=== PATIENT | female | born 1960 | race Caucasian/White ===

== ENCOUNTER → 2019-02-20 13:42 | Outpatient (CLI) | payer MEDICARE, SELFPAY ==
--- NOTE | 2019-02-20 13:50 | AVDS_ITS ---
Reason For Study: Complication due to renal dialysis device RIGHT Inflow, brachial artery, 296.3/139.5 cm/sec. Inflow, brachial artery, 568.2 cc/sec. Anastomosis, 581.7/253.7 cm/sec. Anastomosis, 717.8 cc/sec. Prox graft, 272/118.8 cm/sec. Prox graft, 2727 cc/sec. Mid graft, 151.8/53.4 cm/sec. Mid graft, 945.1 cc/sec. Distal graft, 272/118.8 cm/sec. Distal graft, 222.1 cc/sec. Outflow, 151.8/68.9 cm/sec. Outflow, 633.9 cc/sec. Interpretation Summary 1. Mild stenosis at anastamosis to 3.1 mm and sever outflow at 2.5mm with flow 568. Ordering Physician: Judd Malcolm Referring Physician: Odin Castle M.D. Performed By: Cindy Bravo RVT
== END ==
PROVIDERS: Family Provider Family Medicine; PCP Family Medicine; Referring Provider Surgery Vascular Surgery; Visit Provider Surgery Vascular Surgery
DX: T82.858A Stenosis of other vascular prosthetic devices, implants and grafts, initial encounter (principal); N18.6 End stage renal disease
CPT/HCPCS: 93990

== ENCOUNTER → 2019-04-29 12:51 | Outpatient (CLI) | payer MEDICARE, SELFPAY ==
--- NOTE | 2019-04-29 12:55 | AVDS_ITS ---
Reason For Study: Complications due to renal dialysis device RIGHT Inflow, brachial artery, 257.1/104.2 cm/sec. Inflow, brachial artery, 554.7 ml/min. Anastomosis, 349.6/125.5 cm/sec. Anastomosis, 532.9 ml/min. Prox graft, 201.3/36.5 cm/sec. Prox graft, 1502 ml/min. Mid graft, 112.6/46.7 cm/sec. Mid graft, 889.7 ml/min. Distal graft, 558.8/257.4 cm/sec. Distal graft, 921.5 ml/min. Outflow, 88.2/40.7 cm/sec. Outflow, 650.5 ml/min. Interpretation Summary 1. Patent fistula with outflow stenosis at 2.5mm. Brachail artery flow 554. Ordering Physician: Judd Malcolm Referring Physician: Latrice Pandey Performed By: Cindy Bravo RVT
== END ==
LOC: CVS 12:52
PROVIDERS: Referring Provider Surgery Vascular Surgery; Visit Provider Surgery Vascular Surgery
DX: T82.858A Stenosis of other vascular prosthetic devices, implants and grafts, initial encounter (principal); N18.6 End stage renal disease
CPT/HCPCS: 93990

== ENCOUNTER → 2019-06-16 09:48 | Outpatient (CLI) | payer MEDICARE, SELFPAY ==
--- NOTE | 2019-06-16 09:51 | AVDS_ITS ---
Reason For Study: Complications due to renal dialysis device RIGHT Inflow, brachial artery, 284.5/100.3 cm/sec. Inflow, brachial artery, 500.4 ml/min. Anastomosis, 318.9/174.9 cm/sec. Anastomosis, 214.6 ml/min. Prox graft, 404.8/150 cm/sec. Prox graft, 2374 ml/min. Mid graft, 189.5/53.7 cm/sec. Mid graft, 1866 ml/min. Distal graft, 97.9/40.8 cm/sec. Distal graft, 862.9 ml/min. Outflow, 177.9/79.3 cm/sec. Outflow, 585.5 ml/min. Interpretation Summary 1. Patent AVG with some proximal stenosis. Ordering Physician: Judd Malcolm Referring Physician: Alphonse Marr Performed By: Cindy Bravo RVT
== END ==
LOC: CVS 09:49
PROVIDERS: PCP Student in an Organized Health Care Education/Training Program; Referring Provider Surgery Vascular Surgery; Visit Provider Surgery Vascular Surgery
DX: T82.858A Stenosis of other vascular prosthetic devices, implants and grafts, initial encounter (principal); N18.6 End stage renal disease
CPT/HCPCS: 93990

== ENCOUNTER → 2019-08-06 09:45 | Outpatient (CLI) | payer MEDICARE, MEDICAID, SELFPAY ==
--- NOTE | 2019-08-06 09:50 | AVDS_ITS ---
Reason For Study: Complications due to renal dialysis device RIGHT Inflow, brachial artery, 346.3/146.7 cm/sec. Inflow, brachial artery, 1030 ml/min. Anastomosis, 515.4/247.3 cm/sec. Anastomosis, 560.1 ml/min. Prox graft, 505.7/228.4 cm/sec. Prox graft, 5372 ml/min. Mid graft, 274.1/119.4 cm/sec. Mid graft, 2724 ml/min. Distal graft, 149.3/71.5 cm/sec. Distal graft, 1793 ml/min. Outflow, 173.3/73.1 cm/sec. Outflow, 1451 ml/min. Interpretation Summary Proximal mild stenosis with good flow at 3.3mm. The rest of fistula 8.1 to 9.4mm. Flow 1030 ml/min. Ordering Physician: Judd Malcolm Referring Physician: Alphonse Marr Performed By: Cindy Bravo RVT
== END ==
PROVIDERS: PCP Student in an Organized Health Care Education/Training Program; Referring Provider Surgery Vascular Surgery; Visit Provider Surgery Vascular Surgery
DX: T82.858A Stenosis of other vascular prosthetic devices, implants and grafts, initial encounter (principal); N18.6 End stage renal disease
CPT/HCPCS: 93990

== ENCOUNTER 2020-11-25 11:17 | Inpatient (IN) | payer MEDICARE, MEDICAID, SELFPAY ==
[2020-11-25] VITALS (14 sets, daily range): BP systolic 112–182; BP diastolic 54–70; PULSE 68–72; RESP 16–24; TEMP 36.4–36.9; O2SAT 91–98; BMI 30.7; BMI 29.5
--- NOTE | 2020-11-25 11:29 | EDS_ITS ---
HPI History of Present Illness Chief Complaint: Chest Pain Informant: patient Narrative Narrative: Patient is a 60-year-old female with a past medical history of end- stage renal disease on dialysis, mitral valve replacement who presents to the emergency department for substernal chest pain. This started just prior to arrival while she was at dialysis. She denies ever having this pain before. She states that it was very severe. It is down to a 6 out of 10 currently. No radiation of the pain. No shortness of breath past her baseline. She is on oxygen chronically. She typically wears 2 L of nasal cannula. Patient was previously on Eliquis but taken off of this 3 weeks ago she had a severe nosebleed. She denies any leg swelling past baseline or calf pain. No history of DVT/PE or heart attack. No known aggravating or relieving factors. She did receive nitro and aspirin by EMS prior to arrival. [facility] Medical History CAD (coronary artery disease) CHF (congestive heart failure) CKD (chronic kidney disease) CKD (chronic kidney disease) stage V requiring chronic dialysis Former tobacco use HTN (hypertension) Hyperlipidemia PAF (paroxysmal atrial fibrillation) Home Medications ascorbic acid (vitamin C) 500 mg PO DAILY 11/25/20 [History Last Taken 11/24/20] atorvastatin 40 mg PO DAILY 11/25/20 [History Last Taken 11/24/20] cholecalciferol (vitamin D3) 125 mcg PO DAILY 11/25/20 [History Last Taken 11/24/20] furosemide 20 mg PO DAILY 11/25/20 [History Last Taken 11/24/20] furosemide 40 mg PO BID 11/25/20 [History Last Taken 11/24/20] hydralazine 50 mg PO TID 11/25/20 [History Last Taken 11/25/20] hydroxyzine HCl 25 mg PO TID 11/25/20 [History Last Taken 11/25/20] insulin lispro [Humalog U-100 Insulin] 11/25/20 [History Last Taken Unknown] metoprolol succinate 50 mg PO BID 11/25/20 [History Last Taken 11/25/20] omeprazole 40 mg PO DAILY 11/25/20 [History Last Taken 11/24/20] ondansetron HCl 4 mg PO PRN PRN 11/25/20 [History Last Taken 11/25/20] Allergy/AdvReac Type Severity Reaction Status Date / Time amoxicillin Allergy Hives Verified 11/25/20 11:39 benzonatate Allergy Hives Verified 11/25/20 11:39 [From Tessalon Perles] lansoprazole [From Prevacid] Allergy Other Verified 11/25/20 11:39 latex Allergy Hives Verified 11/25/20 11:39 Penicillins Allergy Hives Verified 11/25/20 11:39 Family History (Updated 11/25/20 @ 15:[address] Daiana Guajardo MD) Mother Hypertension Diabetes Heart disease Father Heart disease Hypertension Diabetes Kidney disease Surgical History History of appendectomy History of arteriovenous graft History of heart artery stent History of mitral valve replacement Hx of CABG Social History (Updated 11/25/20 @ 15:[address] Daiana Guajardo MD) household members: spouse Smoking Status: Former smoker how long ago did patient quit smoking: Quit 4 years prior, smoked 1 ppd cig tob since teenager. alcohol intake: never substance use type: does not use ROS ROS ED Constitutional Constitutional ED: Denies chills or fever(s) Eyes Eyes: Denies change in vision ENT ENT ED: Denies epistaxis or rhinorrhea Cardiovascular Cardiovascular: Reports chest pain; Denies palpitations Respiratory/Chest Respiratory/Chest: Denies cough, dyspnea or dyspnea on exertion Gastrointestinal Gastrointestinal: Reports nausea and vomiting; Denies abdominal pain or diarrhea Musculoskeletal Musculoskeletal: Denies back pain or neck pain Integumentary Denies rash Neurologic Neurologic: Denies dizziness, headache(s) or weakness EXAM Physical Exam Narrative Exam Narrative: Patient dry heaving throughout exam. Const Vital Signs: 11/25/20 11:18 11/25/20 11:30 11/25/20 13:14 Temperature 98 F 97.6 F L Temperature Source Oral Oral Pulse Rate 70 72 Respiratory Rate 20 H 20 H Respiratory Effort Normal Non-Labored Respiratory Pattern Normal Blood Pressure 138/65 H 182/64 H Blood Pressure Mean 89 103 Pulse Ox 91 94 98 Oxygen Delivery Method Room Air Room Air Nasal Cannula Oxygen Flow Rate (L/min) 4 11/25/20 14:03 11/25/20 14:17 11/25/20 14:49 Temperature Temperature Source Pulse Rate 72 71 68 Respiratory Rate 24 H 19 H Respiratory Effort Respiratory Pattern Blood Pressure 176/70 H 159/59 H 159/59 H Blood Pressure Mean 105 92 Pulse Ox 95 93 Oxygen Delivery Method Nasal Cannula Nasal Cannula Oxygen Flow Rate (L/min) 2 2 11/25/20 15:09 11/25/20 15:18 Temperature 98 F Temperature Source Temporal Pulse Rate 70 69 Respiratory Rate 19 H Respiratory Effort Respiratory Pattern Blood Pressure 149/57 H 149/57 H Blood Pressure Mean 87 Pulse Ox 96 Oxygen Delivery Method Nasal Cannula Oxygen Flow Rate (L/min) 2 Positive well nourished and well developed General Appearance ED: well developed HEENT Reports normocephalic and head/scalp atraumatic Eyes PERRL and EOMs intact bilaterally Neck supple Chest Wall inspection of chest normal Resp normal respiratory effort and clear to auscultation bilaterally Auscultation: Negative for rales, rhonchi or wheezes Cardio regular rate, regular rhythm and no murmurs GI normal to inspection, nondistended, normoactive bowel sounds and non-tender Palpation: soft; Negative for guarding or rebound tenderness present Extremity normal to inspection Extremity Narrative: 1+ pitting edema of bilateral lower extremities. No calf tenderness. General Extremety ED: Negative for tenderness Neuro oriented x3 and no sensory deficits noted Sensorium / Orientation: alert Motor Exam: strength 5/5 throughout Psych mental status grossly normal Skin no rashes or lesions noted MDM MDM MDM Narrative Medical decision making narrative: Patient presents to the emergency department for chest pain and nausea/vomiting. On arrival to the ED she is satting 91% on her baseline oxygen. She is not tachycardic. The rest of her vital signs within normal limits. EKG, chest x-ray and basic lab work being obtained. She already received aspirin prior to arrival. Will give a dose of morphine. On the initial EMS EKG she did have a prolonged QTC so we will avoid Zofran. We will give a dose of Phenergan. Repeat EKG was obtained and her QTC was 450. Despite getting the Phenergan she still having nausea so this time Zofran was given. She was found to have a low potassium so this is being replaced. Her BMP came back severely elevated. X- ray showed a right pleural effusion. Patient's oxygen saturations dropped to the high 70s at one point and her supplemental oxygen has been increased. Concern for CHF exacerbation although she is having significant pain so CT angio is being performed. Her troponin is within normal limits. Patient CT scan of her chest did not reveal any evidence of pulmonary embolism. She is still having active chest pain. We will give a dose of nitro to help with the chest pain and CHF exacerbation. I did discuss with the hospitalist and they requested Nitropaste to go on to the floor. She otherwise has remained stable. She is agreeable with this plan. Lab Data Labs: Laboratory Results - last 24 hr 11/25/20 11/25/20 11/25/20 11:22 11:22 11:50 WBC 13.3 H RBC 3.84 L Hgb 10.9 L Hct 35.3 L MCV 91.9 MCH 28.4 MCHC 30.9 L RDW Std Deviation 63.8 H RDW Coeff of Grazyna 19.7 H Plt Count 359 MPV 10.4 Immature Gran % (Auto) 0.500 Neut % (Auto) 79.7 H Lymph % (Auto) 7.8 L Kidder % (Auto) 9.5 Eos % (Auto) 1.8 Baso % (Auto) 0.7 Absolute Neuts (auto) 10.6 H Absolute Lymphs (auto) 1.04 Nucleated RBC % 0 Sodium 134 L Potassium 2.7 L* Chloride 93 L Carbon Dioxide 37.0 H Anion Gap 4 L BUN 12 Creatinine 2.33 H Estim Creat Clear Calc 26.16 Est GFR (MDRD) Af Amer 27 L Est GFR (MDRD) Non-Af 22 L BUN/Creatinine Ratio 5.2 L Glucose 118 H Calcium 8.8 Magnesium 2.2 Troponin I High Sens 18.8 B-Natriuretic Peptide 2154.0 H 11/25/20 15:11 WBC RBC Hgb Hct MCV MCH MCHC RDW Std Deviation RDW Coeff of Grazyna Plt Count MPV Immature Gran % (Auto) Neut % (Auto) Lymph % (Auto) Kidder % (Auto) Eos % (Auto) Baso % (Auto) Absolute Neuts (auto) Absolute Lymphs (auto) Nucleated RBC % Sodium Potassium Chloride Carbon Dioxide Anion Gap BUN Creatinine Estim Creat Clear Calc Est GFR (MDRD) Af Amer Est GFR (MDRD) Non-Af BUN/Creatinine Ratio Glucose Calcium Magnesium Troponin I High Sens Cancelled B-Natriuretic Peptide Radiography Diagnostic Testing: Radiology Impression Chest X-Ray 11/25/20 11:51 IMPRESSION: CHF. Cardiomegaly. Small right pleural effusion with right basilar atelectasis. Electronically Signed: Miach Zelaya MD at 12:03 EDT , Service support , Chest CTA 11/25/20 11:58 IMPRESSION: 1. No central or segmental pulmonary embolism. 2. Cardiomegaly with peribronchial thickening and interstitial prominence suggesting fluid overload/CHF. 3. Right pleural effusion. Upper abdominal ascites. 4. Right lower lobe atelectasis. 5. Moderate mediastinal adenopathy without dominant serenity mass. Electronically Signed: Billy Jordan MD ([place]) at 13:09 EDT , Service support , EKG Initial EKG: Attestation: I personally reviewed and interpreted this EKG as follows: (Rate of 73 bpm in sinus rhythm. Prolonged IA interval of 246 with first-degree AV block. Otherwise normal intervals. Normal axis. No significant ST eleva tions or depressions. Some nonspecific ST changes.) Discharge Plan Dx/Rx/DC Orders Clinical Impression: CHF exacerbation, Hypoxia, Chest pain Disposition Disposition: Acute Care Hospital [facility] Discharge Date/Time: 11/25/20 15:36
--- NOTE | 2020-11-25 11:30 | EKG12_ITS ---
Test Reason : CP Blood Pressure : / mmHG Vent. Rate : 074 BPM Atrial Rate : 074 BPM P-R Int : 262 ms QRS Dur : 106 ms QT Int : 464 ms P-R-T Axes : 057 -18 106 degrees QTc Int : 515 ms Sinus rhythm with 1st degree A-V block T wave abnormality, consider lateral ischemia Prolonged QT Poor R wave progression Abnormal ECG Confirmed by MARIA T RUSSO, DEVANTE ([id number]), assistant film editor SHELDON MERAZ ([id number]) on 11/30/2020 10:18:27 AM Referred By: NALINI Confirmed By:DEVANTE LIVE MD
[2020-11-25] MEDS: Morphine 4 MG/ML Syringe IV (11:39)
[2020-11-25] MEDS: proMETHazine 25 MG/ML Syringe 12.5 MG IM (11:39)
[2020-11-25 11:42] LABS: Absolute Lymphocyte Count 1.04 X10^3/uL (0.83-4.51); Absolute Neutrophil Count 10.6 X10^3/uL (2.0-7.7); Basophil# 0.09 X10^3/uL; Basophil% 0.7 % (0-1); Eosinophil# 0.24 X10^3/uL; Eosinophils% 1.8 % (0-5); Hematocrit 35.3 % (37-47); Hemoglobin 10.9 g/dL (12.0-15.0); Lymphocyte # 1.04 X10^3/ul (0.83-4.51); Lymphocyte % 7.8 % (19-41); Mean Corp Hgb Conc 30.9 g/dL (32-36); Mean Corpuscular Hgb 28.4 pg (27.0-32.0); Mean Corpuscular Volume 91.9 fL (81-99); Mean Platelet Vol. 10.4 fl (6.2-12.0); Monocyte# 1.27 X10^3/uL; Monocyte% 9.5 % (0-10); NRBC Flagged by Analyzer 0 % (0-5); Neutrophil # 10.61 X10^3/uL (2.7-7.7); Neutrophil % 79.7 % (47-70); Platelet Count 359 K/mm3 (150-450); RBC Distribution Width CV 19.7 % (11.6-14.6); RBC Distribution Width SD 63.8 fl (35.1-43.9); Red Blood Count 3.84 M/mm3 (4.2-5.4); White Blood Count 13.3 K/mm3 (4.4-11.0)
--- NOTE | 2020-11-25 11:51 | RAD_ITS ---
STUDY: X-RAY CHEST REASON FOR EXAM: Female, 60 years old. Chest pain TECHNIQUE: Single AP portable view of the chest. COMPARISON: None. FINDINGS: EKG electrodes are seen. There is evidence of vascular congestion and mild degree of CHF with a right basilar atelectasis. Small right pleural effusion. Sternal cerclage wires and vascular clips are present from a prior sternotomy and coronary artery bypass graft procedure (CABG). A left-sided dual-chamber pacemaker is seen. A clip is seen along the left atrial appendage. Normal mediastinum and damaris. Normal visualized pulmonary arteries. There is atherosclerotic calcification of the aortic arch with tortuosity. Normal visualized thoracic spine. Normal visualized ribs, clavicles, and shoulders. There is no demonstrated abnormality of the visualized soft tissue structures of the upper abdomen. RAD/Chest 1 View (Portable) IMPRESSION: CHF. Cardiomegaly. Small right pleural effusion with right basilar atelectasis. Electronically Signed: Micah Zelaya MD at 12:03 EDT , Service support ,
--- NOTE | 2020-11-25 11:58 | CT_ITS ---
STUDY: CTA CHEST REASON FOR EXAM: Female, 60 years old. Substernal CP, hypoxia, eval for PE RADIATION DOSAGE (If Supplied By Facility): CTDIvol = ( 20.51 ) mGy, DLP = ( 426.06 ) mGycm TECHNIQUE: The examination was performed with the intravenous administration of IV 75mL Isovue-370. Post-processing of the angiographic images was performed, with multiplanar reformation and 3D reconstruction. Individualized dose optimization techniques were used for this CT. COMPARISON: None. FINDINGS: Normal enhancement of the main pulmonary artery and right and left pulmonary arteries. Normal enhancement of the bilateral peripheral pulmonary arteries. There is no demonstrated pulmonary embolism. Normal thoracic aorta and visualized great vessels. There is no demonstrated aortic dissection. There is cardiomegaly. Cardiac conduction device is noted. Mitral valve replacement. Reflux of contrast in the IVC. Moderate adenopathy of the middle mediastinum. For instance, Station 4 paratracheal lymph node measures 1.6 x 2.2 cm. Normal hilar regions. There is peribronchial thickening. Compressive atelectasis of the right lower lobe. No airspace consolidation or obvious nodule/mass. There is a moderate volume right sided pleural effusion. Normal chest wall structures. There are degenerative changes of thoracic spine. Ascites in the upper abdomen partially visualized. CT/CTA Chest W/WO Contrast IMPRESSION: 1. No central or segmental pulmonary embolism. 2. Cardiomegaly with peribronchial thickening and interstitial prominence suggesting fluid overload/CHF. 3. Right pleural effusion. Upper abdominal ascites. 4. Right lower lobe atelectasis. 5. Moderate mediastinal adenopathy without dominant serenity mass. Electronically Signed: Billy Jordan MD ([place]) at 13:09 EDT , Service support ,
[2020-11-25 11:59] LABS: Anion Gap 4 (5-15); BUN 12 mg/dL (7-18); BUN/Creat Ratio 5.2 RATIO (10-20); Calcium,Total 8.8 mg/dL (8.5-10.1); Chloride 93 mmol/L (98-107); Creatinine, Serum 2.33 mg/dL (0.55-1.02); EST Glomerular Filtration Rate 22 mL/min (>60); Est Glom Filt Rate - Afr Amer 27 mL/min (>60); Estimated Creatinine Clearance 26.16 ml/min; Glucose 118 mg/dL (74-106); Magnesium 2.2 mg/dL (1.6-2.6); Potassium 2.7 mmol/L (3.5-5.1); Sodium Level 134 mmol/L (136-145); Troponin-I HS 18.8 pg/mL (3.0-53.7)
[2020-11-25] MEDS: Potassium Chloride Oral Tablet 20 MEQ PO (12:04)
--- NOTE | 2020-11-25 12:05 | EKG12_ITS ---
Test Reason : Blood Pressure : / mmHG Vent. Rate : 066 BPM Atrial Rate : 066 BPM P-R Int : 250 ms QRS Dur : 098 ms QT Int : 494 ms P-R-T Axes : 041 -11 109 degrees QTc Int : 517 ms Sinus rhythm with 1st degree A-V block Nonspecific T wave abnormality Prolonged QT Abnormal ECG Confirmed by MARIA T RUSSO, DEVANTE ([id number]), editor news SHELDON MERAZ ([id number]) on 11/30/2020 10:56:12 AM Referred By: DORIS Confirmed By:DEVANTE LIVE MD
[2020-11-25] MEDS: Ondansetron 4 MG/2 ML Vial IV ×2 (12:29→20:00)
[2020-11-25] MEDS: Potassium Chloride 10mEq/100mL 10 MEQ/100 ML IV.SOLN. 100 MEQ IV BOLUS (13:23)
[2020-11-25] MEDS: Metoclopramide 10 MG/2 ML Vial 5 MG IV (14:10)
[2020-11-25] MEDS: Nitroglycerin (INPATIENT USE) 0.4 MG TAB.SUBL SL (14:17)
[2020-11-25] MEDS: Furosemide 40 MG/4 ML Vial IV ×2 (15:13→22:53)
[2020-11-25] MEDS: Nitroglycerin Oint 1 INCH PACKET TD (15:18)
--- NOTE | 2020-11-25 15:36 | PCM.HP.STD ---
HPI - General General Date of Admission: 11/25/20 Date of Service: 11/25/20 Chief Complaint: Dyspnea, worsening, chest pain HPI Narrative The patient is a 60 y/o F w/ PMHx: PAF, CAD s/p CABG and PCI, PAD, AOCD/Chronic anemia, ESRD on HD, Valvular Heart Disease s/p MVR, Chronic CHF Unclear Type, HTN, HLD, GERD who presents to the [facility] ED on 11/25/20 with history of ongoing substernal chest pain starting prior to arrival while at dialysis noted to be severe in nature, rated 6-10 out of 10 in severity with no radiation with unchanged chronic dyspnea on oxygen 2 L nasal cannula baseline with recent discontinuation of Eliquis 3 weeks prior secondary to severe nosebleeds. Patient does report that over the last month she has had worsening exertional dyspnea but no chest pain until current presentation. Patient does report that chest pain occurred when she was in the middle of dialysis and she did have some time that was remaining prior to transitioning for ED evaluation. Currently following sublingual nitroglycerin she rates pain 0 out of 10. She denies any recent specific worsening edema, weight gain or notable orthopnea. Work-up in the ED included T 97.6, heart rate 72, BP 138/65 initially with repeat 176/70, respiratory rate initially 20 noted to be 91% on room air with most recent respiratory rate 24, 95% on 2 L nasal cannula, CBC with WBC 13.3, hemoglobin 10.9, platelet 359 with left shift, BMP with sodium 134, potassium 2.7, chloride 93, BUN/creatinine 12/2.33, glucose 118, magnesium 2.2, troponin high-sensitivity 18.8, BNP 2154, chest x-ray with evidence of cardiomegaly, congestion consistent with CHF, small right pleural effusion with right basilar atelectasis, CTPA with no evidence of central or segmental pulmonary embolism, cardiomegaly with peribronchial thickening and interstitial prominence suggestive of fluid overload/CHF, right pleural effusion with evidence of upper abdominal ascites, right lower lobe atelectasis, moderate mediastinal adenopathy with no dominant serenity mass, EKG per EMS with prolonged QTC with sinus rhythm, repeat EKG QTC 450 with sinus rhythm with first-degree AV blocks with no acute evidence of ischemia, rapid Covid antigen negative. In the ED patient ministered Phenergan, potassium 20 mill equivalent p.o. x1, Zofran, nitroglycerin, morphine, Reglan, Dilaudid. [facility] Medical History (Updated 11/25/20 @ 15:[address] Daiana Guajardo MD) CAD (coronary artery disease) CHF (congestive heart failure) CKD (chronic kidney disease) CKD (chronic kidney disease) stage V requiring chronic dialysis Former tobacco use HTN (hypertension) Hyperlipidemia PAF (paroxysmal atrial fibrillation) Home Medications ascorbic acid (vitamin C) 500 mg PO DAILY 11/25/20 [History Last Taken 11/24/20] atorvastatin 40 mg PO DAILY 11/25/20 [History Last Taken 11/24/20] cholecalciferol (vitamin D3) 125 mcg PO DAILY 11/25/20 [History Last Taken 11/24/20] furosemide 20 mg PO DAILY 11/25/20 [History Last Taken 11/24/20] furosemide 40 mg PO BID 11/25/20 [History Last Taken 11/24/20] hydralazine 50 mg PO TID 11/25/20 [History Last Taken 11/25/20] hydroxyzine HCl 25 mg PO TID 11/25/20 [History Last Taken 11/25/20] metoprolol succinate 50 mg PO BID 11/25/20 [History Last Taken 11/25/20] omeprazole 40 mg PO DAILY 11/25/20 [History Last Taken 11/24/20] ondansetron HCl 4 mg PO PRN PRN 11/25/20 [History Last Taken 11/25/20] Allergy/AdvReac Type Severity Reaction Status Date / Time amoxicillin Allergy Hives Verified 11/25/20 11:39 benzonatate Allergy Hives Verified 11/25/20 11:39 [From Tessalon Perles] lansoprazole [From Prevacid] Allergy Other Verified 11/25/20 11:39 latex Allergy Hives Verified 11/25/20 11:39 Penicillins Allergy Hives Verified 11/25/20 11:39 Family History (Updated 11/25/20 @ 15:[address] Daiana Guajardo MD) Mother Hypertension Diabetes Heart disease Father Heart disease Hypertension Diabetes Kidney disease Surgical History (Updated 11/25/20 @ 15:[address] Daiana Guajardo MD) History of appendectomy History of arteriovenous graft History of heart artery stent History of mitral valve replacement Hx of CABG Social History (Updated 11/25/20 @ 15:[address] Daiana Guajardo MD) household members: spouse Smoking Status: Former smoker how long ago did patient quit smoking: Quit 4 years prior, smoked 1 ppd cig tob since teenager. alcohol intake: never substance use type: does not use ROS ROS Narrative Admission Review of Systems: CONSTITUTIONAL: No weight loss, fever, chills, + weakness or fatigue. HEENT: Eyes: No visual loss, blurred vision, double vision or yellow sclerae. Ears, Nose, Throat: No hearing loss, sneezing, congestion, runny nose or sore throat. SKIN: No rash or itching, lesions, wounds. CARDIOVASCULAR: + chest pain, chest pressure or chest discomfort, No palpitations, edema, orthopnea, syncopal events. RESPIRATORY: + shortness of breath, No cough or sputum, wheezing, hemoptysis. GASTROINTESTINAL: + anorexia, nausea, vomiting, No diarrhea, abdominal pain, melena, BRBPR. GENITOURINARY: No dysuria, frequency, urgency or retention. NEUROLOGICAL: No headache, dizziness, syncope, paralysis, ataxia, numbness or tingling in the extremities, focal weakness, change in bowel or bladder control, seizure. MUSCULOSKELETAL: + muscle, back pain, joint pain or stiffness. HEMATOLOGIC: + anemia, bleeding or bruising. LYMPHATICS: No enlarged nodes. No history of splenectomy. PSYCHIATRIC: No history of depression or anxiety. ENDOCRINOLOGIC: No reports of sweating, cold or heat intolerance. No polyuria or polydipsia. ALLERGIES: No history of asthma, hives, eczema or rhinitis. Vital Signs Vital Signs Vital Signs: 11/25/20 11:18 11/25/20 11:30 11/25/20 13:14 Temperature 98 F 97.6 F L Temperature Source Oral Oral Pulse Rate 70 72 Respiratory Rate 20 H 20 H Respiratory Effort Normal Non-Labored Respiratory Pattern Normal Blood Pressure 138/65 H 182/64 H Blood Pressure Mean 89 103 Pulse Ox 91 94 98 Oxygen Delivery Method Room Air Room Air Nasal Cannula Oxygen Flow Rate (L/min) 4 11/25/20 14:03 11/25/20 14:17 11/25/20 14:49 Temperature Temperature Source Pulse Rate 72 71 68 Respiratory Rate 24 H 19 H Respiratory Effort Respiratory Pattern Blood Pressure 176/70 H 159/59 H 159/59 H Blood Pressure Mean 105 92 Pulse Ox 95 93 Oxygen Delivery Method Nasal Cannula Nasal Cannula Oxygen Flow Rate (L/min) 2 2 11/25/20 15:09 11/25/20 15:18 Temperature 98 F Temperature Source Temporal Pulse Rate 70 69 Respiratory Rate 19 H Respiratory Effort Respiratory Pattern Blood Pressure 149/57 H 149/57 H Blood Pressure Mean 87 Pulse Ox 96 Oxygen Delivery Method Nasal Cannula Oxygen Flow Rate (L/min) 2 Weight Weight: 208 lb 1.862 oz Body Mass Index (BMI) 30.7 Physical Exam Narrative Physical Examination: General: Awake, alert, oriented x 3 and cooperative, seated upright in the ED bed, notes feeling markedly improved, respiratory status normalized as had been short of breath initially upon presentation with chest pain, currently 0 out of 10 chest pain rated. Skin: Normal color, normal turgor, no icterus, no cyanosis. HEENT: AT/NC, EOMI, PERRLA, MMM, no carotid bruits, + JVD noted. Lungs: Diminished, greater bases, mild rales bilaterally, right greater than left, effort improved, normalized, no ronchi or wheezing. Heart: Regular rate and rhythm; no gallop, rub audible. Abdomen: Soft, overweight, NTTP, ND, normal BS, no HSM. Extremities: No cyanosis, no clubbing, mild bilateral ankle edema, not markedly pitting. Neurological: Patient awake, alert, oriented as noted, cognitive function intact; pupils equally reactive to light and accommodation, cranial nerves II-XII grossly normal, moving all 4 extremities, no focal deficits, strength moderately to severely global decrease secondary to acute presentation, improving. Psychiatric: Affect appears currently improved, fatigued otherwise normal, no acute evidence of depressive or anxiety feelings. Results Lab / Micro Data Result Diagrams: 11/25/20 11:22 11/25/20 11:22 Labs: Laboratory Results - last 24 hr 11/25/20 11:22: WBC 13.3 H, RBC 3.84 L, Hgb 10.9 L, Hct 35.3 L, MCV 91.9, MCH 28.4, MCHC 30.9 L, RDW Std Deviation 63.8 H, RDW Coeff of Grazyna 19.7 H, Plt Count 359, MPV 10.4, Immature Gran % (Auto) 0.500, Neut % (Auto) 79.7 H, Lymph % (Auto) 7.8 L, Gregg % (Auto) 9.5, Eos % (Auto) 1.8, Baso % (Auto) 0.7, Absolute Neuts (auto) 10.6 H, Absolute Lymphs (auto) 1.04, Nucleated RBC % 0 11/25/20 11:22: Sodium 134 L, Potassium 2.7 L*, Chloride 93 L, Carbon Dioxide 37.0 H, Anion Gap 4 L, BUN 12, Creatinine 2.33 H, Estim Creat Clear Calc 26.16, Est GFR (MDRD) Af Amer 27 L, Est GFR (MDRD) Non-Af 22 L, BUN/Creatinine Ratio 5.2 L, Glucose 118 H, Calcium 8.8, Magnesium 2.2, Troponin I High Sens 18.8 11/25/20 11:50: B-Natriuretic Peptide 2154.0 H Micro: Microbiology 11/25/20 12:02 Mucosa - Nose SARS-CoV-2 Antigen (Rapid) - Final Radiology Impression Chest X-Ray 11/25/20 11:51 IMPRESSION: CHF. Cardiomegaly. Small right pleural effusion with right basilar atelectasis. Electronically Signed: Micah Zelaya MD at 12:03 EDT , Service support , Chest CTA 11/25/20 11:58 IMPRESSION: 1. No central or segmental pulmonary embolism. 2. Cardiomegaly with peribronchial thickening and interstitial prominence suggesting fluid overload/CHF. 3. Right pleural effusion. Upper abdominal ascites. 4. Right lower lobe atelectasis. 5. Moderate mediastinal adenopathy without dominant serenity mass. Electronically Signed: Billy Jordan MD (Brooks) at 13:09 EDT , Service support , Assessment & Plan Assessment/Plan (1) CHF exacerbation: QUALIFIERS: Heart failure type: unspecified Qualified Code(s): I50.9 - Heart failure, unspecified (2) Hypoxia: (3) Chest pain: QUALIFIERS: Chest pain type: unspecified Qualified Code(s): R07.9 - Chest pain, unspecified PLAN: The patient is a 60 y/o F w/ PMHx: PAF, CAD s/p CABG and PCI, PAD, AOCD/Chronic anemia, ESRD on HD, Valvular Heart Disease s/p MVR, Chronic CHF Unclear Type, HTN, HLD, GERD who presents to the [facility] ED on 11/25/20 with history of ongoing substernal chest pain starting prior to arrival while at dialysis noted to be severe in nature, rated 6-10 out of 10 in severity with no radiation with unchanged chronic dyspnea on oxygen 2 L nasal cannula baseline with recent discontinuation of Eliquis 3 weeks prior secondary to severe nosebleeds. 1. Acute Decompensated CHF, Presumed Diastolic with associated Chest pain, Hypoxia w/ respiratory insufficiency: Patient administered IV lasix in the ED pending Nephrology evaluation of HD. Will admit to PCU, maintain on cardiac telemetry, obtain cardiac enzyme series, obtain serial EKGs, continue IV lasix diuresis pending HD, monitor I/Os, maintain on intake restriction, continue medical therapy, obtain TSH and magnesium level. Obtain ECHO. PRN morphine to decrease afterload, continue oxygen supplementation, if necessary will position w/ upright position with legs off bed to decrease preload. 2. Hypokalemia: Admission K+ 2.7, magnesium 2.2, supplementation orally administered in the ED, will administer additional dose and repeat level this evening as well as repeat level in AM. 3. ESRD on HD: Admission BUN/Cr 12/2.33, unclear baseline, HD from discussion Saturday, onset of chest discomfort during evaluation today, will consult nephrology and given presentation request HD. Will consult Dr. 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 4. CAD, PAD: Patient per her report status post bypass surgery unclear specific vessels or number as well as PCI x1 and also reports stenting to something in her abdomen but unclear vessel, will maintain on aspirin, statin, metoprolol, not on JUSTIN inhibitor or ARB with underlying renal disease as noted. 5. Valvular heart disease: Patient status post MVR, echo ordered as noted above. 6. Hypertension: Continue home regimen including metoprolol, hydralazine, IV Lasix as noted, not on JUSTIN inhibitor/ARB, PRN hydralazine. 7. Hyperlipidemia: Continue home statin regimen. AM FLP. 8. Chronic anemia/AOCD: Admission hemoglobin 10.9, do suspect likely baseline given underlying renal disease, no comparison, trend. 9. 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 Will cautiously placed on aspirin with chemoprophylaxis as noted. 10. GERD: We will continue patient home PPI. 11. DVT prophylaxis: SCDs, heparin. 12. CODE status: Patient does not have healthcare peritoneal living will in place. Discussed CODE status at length including difference between FULL code, DNR-CCA and DNR-CC status. Following discussions about the differences in these status, requested Full Code status. Advanced Care Planning Face to Face Time: 16 minutes. Charges/Coding Visit Charges Inpatient E&M: 97441 Init Hosp L3 Procedures Hospitalists Procedures: 51872 Advncd Care Plan 30 Min
--- NOTE | 2020-11-25 15:50 | ECHOD_ITS ---
Reason For Study: CHF Procedure This was a 2D Doppler, Color Flow transthoracic echocardiogram. The exam was of adequate technical quality. Exam performed portable in patient room. Left Ventricle Normal LV size. Left ventricular systolic function is normal. The estimated ejection fraction is 55 %. Unable to assess diastolic dysfunction. No regional wall motion abnormalities noted. Right Ventricle Mildly dilated right ventricle. Mild global right ventricular systolic dysfunction. Atria The left atrium is mildly enlarged. The right atrium is moderately enlarged. No doppler evidence for ASD. Mitral Valve Stable appearing bioprosthetic mitral valve apparatus. Trivial transvalvular insufficiency of the mitral valve. Tricuspid Valve Normal tricuspid valve. Moderate (2+) tricuspid valve insufficiency. Right ventricular systolic pressure estimated to be 45 mmHg. Aortic Valve Trisinus/trileaflet aortic valve. Mild focal aortic valve calcification. Pulmonic Valve The pulmonic valve is not well visualized. Mild (1+) pulmonic valve insufficiency. Great Vessels Normal sized aortic root. Pericardium/Pleural No pericardial effusion. MMode/2D Measurements & Calculations LVIDd: 4.6 cm IVSd: 0.99 cm Ao root diam: 3.3 cm LVIDs: 3.0 cm LVPWd: 1.0 cm RVDd: 4.0 cm FS: 35.6 % LAV(MOD-bp): 55.6 ml LA A4 area: 17.0 cm2 LA dimension(2D): 4.5 cm LAV(MOD-bp) Indexed: 26.5 ml/m2 LAV(MOD-sp2): 67.1 ml LAV(MOD-sp4): 43.2 ml Doppler Measurements & Calculations MV E max ruben: 182.7 cm/sec MV V2 max: 201.1 cm/sec Ao V2 max: 124.2 cm/sec MV max P.2 mmHg Ao max P.2 mmHg MV V2 mean: 99.9 cm/sec MV mean P.0 mmHg MV V2 VTI: 49.1 cm LV V1 max: 94.3 cm/sec PA V2 max: 61.2 cm/sec TR max ruben: 304.1 cm/sec LV V1 max P.6 mmHg TR max P.2 mmHg ECHO/Echo Complete Interpretation Summary Left ventricular systolic function is normal. The estimated ejection fraction is 55 %. Mildly dilated right ventricle. Mild global right ventricular systolic dysfunction. The right atrium is moderately enlarged. Stable appearing bioprosthetic mitral valve apparatus. Trivial transvalvular insufficiency of the mitral valve. Moderate (2+) tricuspid valve insufficiency. Mild focal aortic valve calcification. Mild (1+) pulmonic valve insufficiency. Right ventricular systolic pressure estimated to be 45 mmHg. Unable to assess diastolic dysfunction. Ordering Physician: Daiana Guajardo Referring Physician: Alphonse Marr Performed By: Oksana Ríos, KRAIG, RVT
[2020-11-25 17:06] LABS: Troponin-I HS 20.6 pg/mL (3.0-53.7)
[2020-11-25] MEDS: Potassium Chloride Oral Tablet 20 MEQ 40 MEQ PO (18:04)
[2020-11-25 18:24] LABS: Anion Gap 3 (5-15); BUN 15 mg/dL (7-18); BUN/Creat Ratio 5.2 RATIO (10-20); Calcium,Total 8.7 mg/dL (8.5-10.1); Chloride 94 mmol/L (98-107); Creatinine, Serum 2.88 mg/dL (0.55-1.02); EST Glomerular Filtration Rate 18 mL/min (>60); Est Glom Filt Rate - Afr Amer 21 mL/min (>60); Estimated Creatinine Clearance 21.17 ml/min; Glucose 107 mg/dL (74-106); Potassium 3.4 mmol/L (3.5-5.1); Sodium Level 132 mmol/L (136-145); Troponin-I HS 19.8 pg/mL (3.0-53.7)
[2020-11-25 18:49] LABS: Hemoglobin A1c 6.4 % (3.8-5.6)
[2020-11-25] MEDS: 0.9% Saline Lock 10 ML Syringe IV ×2 (20:00→22:53)
[2020-11-25] MEDS: Metoprolol(XL)Succ 50 MG Tablet PO (22:54)
[2020-11-25] MEDS: hydrOXYzine PAM 25 MG Capsule PO (22:54)
[2020-11-25] MEDS: hydrALAZINE 50 MG Tablet PO (22:54)
[2020-11-25] MEDS: Heparin Injection (Vial) 5,000 UNIT/ML VIAL 5000 UNIT SC (22:54)
[2020-11-25 23:35] LABS: Bedside Glucose 80 mg/dL (70-110)
[2020-11-26] VITALS (17 sets, daily range): BP systolic 110–142; BP diastolic 45–67; PULSE 55–69; RESP 16–20; TEMP 36–36.8; O2SAT 92–97
--- NOTE | 2020-11-26 05:55 | EKG12_ITS ---
Test Reason : AM EKG Blood Pressure : / mmHG Vent. Rate : 067 BPM Atrial Rate : 067 BPM P-R Int : 252 ms QRS Dur : 094 ms QT Int : 480 ms P-R-T Axes : 038 -10 104 degrees QTc Int : 507 ms Sinus rhythm with 1st degree A-V block Nonspecific T wave abnormality Prolonged QT Abnormal ECG Confirmed by MARIA T RUSSO, DEVANTE ([id number]), business editor SHELDON MERAZ ([id number]) on 11/30/2020 10:17:30 AM Referred By: DR GARCIA Confirmed By:DEVANTE LIVE MD
[2020-11-26] MEDS: hydrALAZINE 50 MG Tablet PO ×3 (06:06→20:46)
[2020-11-26] MEDS: Furosemide 40 MG/4 ML Vial IV ×3 (06:06→20:46)
[2020-11-26] MEDS: hydrOXYzine PAM 25 MG Capsule PO ×3 (06:06→20:48)
[2020-11-26] MEDS: 0.9% Saline Lock 10 ML Syringe IV ×5 (06:06→21:43)
[2020-11-26] MEDS: Morphine 2 MG/ML Syringe IV ×3 (06:46→21:43)
[2020-11-26 07:35] LABS: Bedside Glucose 116 mg/dL (70-110)
[2020-11-26 08:02] LABS: Absolute Lymphocyte Count 0.87 X10^3/uL (0.83-4.51); Absolute Neutrophil Count 11.1 X10^3/uL (2.0-7.7); Basophil# 0.05 X10^3/uL; Basophil% 0.4 % (0-1); Eosinophil# 0.25 X10^3/uL; Eosinophils% 1.8 % (0-5); Hematocrit 33.3 % (37-47); Hemoglobin 10.2 g/dL (12.0-15.0); Lymphocyte # 0.87 X10^3/ul (0.83-4.51); Lymphocyte % 6.2 % (19-41); Mean Corp Hgb Conc 30.6 g/dL (32-36); Mean Corpuscular Hgb 28.6 pg (27.0-32.0); Mean Corpuscular Volume 93.3 fL (81-99); Mean Platelet Vol. 10.5 fl (6.2-12.0); Monocyte# 1.67 X10^3/uL; Monocyte% 11.9 % (0-10); NRBC Flagged by Analyzer 0.2 % (0-5); Neutrophil # 11.13 X10^3/uL (2.7-7.7); Neutrophil % 79.1 % (47-70); POSITIVE DIFFERENTIAL YES; POSITIVE MORPHOLOGY YES; Platelet Count 306 K/mm3 (150-450); RBC Distribution Width CV 19.8 % (11.6-14.6); RBC Distribution Width SD 65.2 fl (35.1-43.9); Red Blood Count 3.57 M/mm3 (4.2-5.4); White Blood Count 14.1 K/mm3 (4.4-11.0)
[2020-11-26 08:06] LABS: Differential Indicated SCAN CRITERIA MET
[2020-11-26 08:34] LABS: ALB/GLOB Ratio 0.5 RATIO (0.9-2.4); AST(SGOT) 69 U/L (15-37); Alanine Aminotransfer ALT/SGPT 31 U/L (13-56); Albumin, Serum 2.4 g/dL (3.2-5.0); Alkaline Phosphatase 601 U/L (45-117); Anion Gap 5 (5-15); BUN 20 mg/dL (7-18); BUN/Creat Ratio 5.6 RATIO (10-20); Calcium,Total 8.7 mg/dL (8.5-10.1); Chloride 95 mmol/L (98-107); Cholesterol < 50 mg/dL (200); EST Glomerular Filtration Rate 14 mL/min (>60); Est Glom Filt Rate - Afr Amer 16 mL/min (>60); Estimated Creatinine Clearance 16.93 ml/min; Globulin 5.1 g/dL (2.2-4.2); Glucose 110 mg/dL (74-106); High Density Lipoprotein 26 mg/dL; Potassium 4.1 mmol/L (3.5-5.1); Protein, Total 7.5 g/dL (6.4-8.2); Sodium Level 131 mmol/L (136-145); Triglycerides 55 mg/dL; Very Low Density Lipoprotein 11 mg/dL (5-40)
[2020-11-26 08:43] LABS: Hypochromasia 1+
[2020-11-26] MEDS: Heparin Injection (Vial) 5,000 UNIT/ML VIAL 5000 UNIT SC ×2 (09:37→20:45)
[2020-11-26] MEDS: Aspirin E.C. 81 MG Tablet PO (09:38)
[2020-11-26] MEDS: Cholecalciferol (VIT D3) 25 MCG TABLET (1,000 UNITS) 125 MCG PO (09:38)
[2020-11-26] MEDS: Atorvastatin Calcium 40 MG Tablet PO (09:39)
[2020-11-26] MEDS: Metoprolol(XL)Succ 50 MG Tablet PO ×2 (09:39→20:47)
[2020-11-26] MEDS: Pantoprazole Sodium 40 MG Tablet PO (09:40)
[2020-11-26] MEDS: Ascorbic Acid 500 MG Tablet PO (09:41)
[2020-11-26] MEDS: Insulin Basal Pump 1 UNIT SC (09:41)
--- NOTE | 2020-11-26 11:01 | PCM.CONS.R ---
Assessment & Plan Assessment/Plan (1) ESRD (end stage renal disease) on dialysis: PLAN: The patient usually dialyzes on a Saturday, Saturday and Saturday schedule at [facility]. She is followed there by Dr. Glynn. Although the patient did not receive the full treatment of her usual dialysis yesterday, there is no need for diffusive clearance. However, she is still volume overloaded. Therefore, I will arrange for isolated ultrafiltration today. Recheck volume status and laboratory tests again tomorrow. (2) Anemia: PLAN: Hemoglobin is at goal for dialysis patient. We will find out what her usual BARBRA dose is with dialysis on 11/28/2020. (3) HTN (hypertension): PLAN: BP is controlled on metoprolol and hydralazine. Continue current medications. BP should also stabilize with ultrafiltration. (4) CHF exacerbation: QUALIFIERS: Heart failure type: unspecified Qualified Code(s): I50.9 - Heart failure, unspecified PLAN: Not sure what her systolic function is since there is no echocardiogram in our system. The patient has crackles on physical exam. She is still volume overloaded and would benefit from further volume removal. Therefore, I will ultrafilter the patient as mentioned above. BP and heart rate is controlled. HPI Consult Data Date of Consult: 11/26/20 HPI Narrative HPI Narrative: The patient is a 60-year-old woman who has ESRD due to diabetic kidney disease, hypertension, type 2 diabetes mellitus, CAD status post CABG and PCI, status post MVR and permanent pacemaker, and paroxysmal atrial fibrillation. The patient usually dialyzes on a MWF schedule at [facility]. The patient is followed there by Dr. Kali Glynn. The patient developed chest pressure and shortness of breath during dialysis yesterday. Chest pressure is better but still present. Troponin was normal. Her shortness of breath has also improved, but she is not yet back at baseline in terms of breathing. She has chronic lower extremity edema which has not increased in severity from usual baseline. FORMERLY [facility], [facility] Medical History (Updated 11/26/20 @ 11:[address] Liat Parker MD) CAD (coronary artery disease) CHF (congestive heart failure) CKD (chronic kidney disease) CKD (chronic kidney disease) stage V requiring chronic dialysis Former tobacco use HTN (hypertension) Hyperlipidemia PAF (paroxysmal atrial fibrillation) Home Medications ascorbic acid (vitamin C) 500 mg PO DAILY 11/25/20 [History Last Taken 11/24/20] atorvastatin 40 mg PO DAILY 11/25/20 [History Last Taken 11/24/20] cholecalciferol (vitamin D3) 125 mcg PO DAILY 11/25/20 [History Last Taken 11/24/20] furosemide 20 mg PO DAILY 11/25/20 [History Last Taken 11/24/20] furosemide 40 mg PO BID 11/25/20 [History Last Taken 11/24/20] hydralazine 50 mg PO TID 11/25/20 [History Last Taken 11/25/20] hydroxyzine HCl 25 mg PO TID 11/25/20 [History Last Taken 11/25/20] insulin lispro [Humalog U-100 Insulin] 11/25/20 [History Last Taken Unknown] metoprolol succinate 50 mg PO BID 11/25/20 [History Last Taken 11/25/20] omeprazole 40 mg PO DAILY 11/25/20 [History Last Taken 11/24/20] ondansetron HCl 4 mg PO PRN PRN 11/25/20 [History Last Taken 11/25/20] Allergy/AdvReac Type Severity Reaction Status Date / Time amoxicillin Allergy Hives Verified 11/25/20 11:39 benzonatate Allergy Hives Verified 11/25/20 11:39 [From Tessalon Perles] lansoprazole [From Prevacid] Allergy Other Verified 11/25/20 11:39 latex Allergy Hives Verified 11/25/20 11:39 Penicillins Allergy Hives Verified 11/25/20 11:39 Family History (Updated 11/25/20 @ 15:[address] Daiana Guajardo MD) Mother Hypertension Diabetes Heart disease Father Heart disease Hypertension Diabetes Kidney disease Surgical History History of appendectomy History of arteriovenous graft History of heart artery stent History of mitral valve replacement Hx of CABG Social History (Updated 11/25/20 @ 15:[address] Daiana Guajardo MD) household members: spouse Smoking Status: Former smoker how long ago did patient quit smoking: Quit 4 years prior, smoked 1 ppd cig tob since teenager. alcohol intake: never substance use type: does not use ROS ROS Narrative Review of systems as per HPI. 10 out of 10 review of systems was completed and otherwise are noncontributory. Physical Exam Narrative General: Alert and oriented x3 in no apparent distress. HEENT: Normocephalic, atraumatic. Mucous membrane moist without erythema. Neck: Supple. Positive JVD. Heart: Normal S1, S2. No rubs or murmurs. Lungs: Crackles at bases bilaterally. Abdomen: Normal bowel sounds, soft, nontender, no guarding or rebound. Extremity: 1+ edema in the lower extremities. No clubbing or cyanosis. Full passive range of motion. Skin: No rash. Skin is warm and dry. Psychiatric: Normal mood and affect. Medical Records Data Medical Nutrition Assessment Dietitian: Nutrition Therapy Diagnosis Start: 11/25/20 17:20 Freq: Status: Active Protocol: Document 11/25/20 17:32 SHARAD (Rec: 11/25/20 17:32 [facility] [id number]) Nutrition Malnutrition Evidence of Malnutrition Exists No Intake Problem Inadequate Oral Intake Etiology related to nausea Signs/Symptoms as evidenced by poor po intake x 2 wks prior to admission. Status Active Problem Clinical Problem Altered Nutrient-Related Laboratory Values Etiology related to renal/endocrine dysfunction Signs/Symptoms as evidenced by Na 134, K 2.7, Cr 2.33, gluc 118 Status Active Problem Recommendation Dietitian Recommendations/Changes Will change diet to Consistent CHO/ Sodium Restriction / 1500 ml fluid/day Will provide 120 ml Nepro CHO Steady w/ meals for increased nutrition if consumed Lab / Micro Data Result Diagrams: 11/26/20 07:37 11/26/20 07:37 Labs: Laboratory Results - last 24 hr 11/25/20 11:22: WBC 13.3 H, RBC 3.84 L, Hgb 10.9 L, Hct 35.3 L, MCV 91.9, MCH 28.4, MCHC 30.9 L, RDW Std Deviation 63.8 H, RDW Coeff of Grazyna 19.7 H, Plt Count 359, MPV 10.4, Immature Gran % (Auto) 0.500, Neut % (Auto) 79.7 H, Lymph % (Auto) 7.8 L, Aud[place] % (Auto) 9.5, Eos % (Auto) 1.8, Baso % (Auto) 0.7, Absolute Neuts (auto) 10.6 H, Absolute Lymphs (auto) 1.04, Nucleated RBC % 0 11/25/20 11:22: Sodium 134 L, Potassium 2.7 L*, Chloride 93 L, Carbon Dioxide 37.0 H, Anion Gap 4 L, BUN 12, Creatinine 2.33 H, Estim Creat Clear Calc 26.16, Est GFR (MDRD) Af Amer 27 L, Est GFR (MDRD) Non-Af 22 L, BUN/Creatinine Ratio 5.2 L, Glucose 118 H, Calcium 8.8, Magnesium 2.2, Troponin I High Sens 18.8 11/25/20 11:50: B-Natriuretic Peptide 2154.0 H 11/25/20 15:11: Troponin I High Sens Cancelled 11/25/20 16:25: Phosphorus 2.0 L, Troponin I High Sens 20.6 11/25/20 16:25: Troponin I High Sens Cancelled 11/25/20 16:25: Hemoglobin A1c 6.4 H 11/25/20 17:41: Sodium 132 L, Potassium 3.4 L, Chloride 94 L, Carbon Dioxide 35.0 H, Anion Gap 3 L, BUN 15, Creatinine 2.88 H, Estim Creat Clear Calc 21.17, Est GFR (MDRD) Af Amer 21 L, Est GFR (MDRD) Non-Af 18 L, BUN/Creatinine Ratio 5.2 L, Glucose 107 H, Calcium 8.7, Troponin I High Sens 19.8 11/25/20 22:52: POC Glucose 80 11/26/20 07:29: POC Glucose 116 H 11/26/20 07:37: WBC 14.1 H, RBC 3.57 L, Hgb 10.2 L, Hct 33.3 L, MCV 93.3, MCH 28.6, MCHC 30.6 L, RDW Std Deviation 65.2 H, RDW Coeff of Grazyna 19.8 H, Plt Count 306, MPV 10.5, Immature Gran % (Auto) 0.600, Neut % (Auto) 79.1 H, Lymph % (Auto) 6.2 L, [place] % (Auto) 11.9 H, Eos % (Auto) 1.8, Baso % (Auto) 0.4, Absolute Neuts (auto) 11.1 H, Absolute Lymphs (auto) 0.87, Nucleated RBC % 0.2, Diff Path Review May foll, Hypochromasia 1+ 11/26/20 07:37: Sodium 131 L, Potassium 4.1, Chloride 95 L, Carbon Dioxide 31.0, Anion Gap 5, BUN 20 H, Creatinine 3.60 H, Estim Creat Clear Calc 16.93, Est GFR (MDRD) Af Amer 16 L, Est GFR (MDRD) Non-Af 14 L, BUN/Creatinine Ratio 5.6 L, Glucose 110 H, Calcium 8.7, Total Bilirubin 2.80 H, AST 69 H, ALT 31, Alkaline Phosphatase 601 H, Total Protein 7.5, Albumin 2.4 L, Globulin 5.1 H, Albumin/Globulin Ratio 0.5 L, Triglycerides 55, Cholesterol < 50, LDL Cholesterol TNP, VLDL Cholesterol 11, HDL Cholesterol 26 L Micro: Microbiology 11/25/20 12:02 Mucosa - Nose SARS-CoV-2 Antigen (Rapid) - Final Radiology Impression Chest X-Ray 11/25/20 11:51 IMPRESSION: CHF. Cardiomegaly. Small right pleural effusion with right basilar atelectasis. Electronically Signed: Micah Zelaya MD at 12:03 EDT , Service support , Chest CTA 11/25/20 11:58 IMPRESSION: 1. No central or segmental pulmonary embolism. 2. Cardiomegaly with peribronchial thickening and interstitial prominence suggesting fluid overload/CHF. 3. Right pleural effusion. Upper abdominal ascites. 4. Right lower lobe atelectasis. 5. Moderate mediastinal adenopathy without dominant serenity mass. Electronically Signed: Billy Jordan MD (Brooks) at 13:09 EDT , Service support ,
[2020-11-26 14:21] LABS: Bedside Glucose 188 mg/dL (70-110)
--- NOTE | 2020-11-26 15:00 | PN.HOSP_ITS ---
Subjective Subjective Patient seen and examined. She was admitted with a complaint of shortness of breath. She also had chest pain. She says she has been having worsening exertional shortness of breath chest pain irregular period of time that she came in. CT of the chest was negative for PE and showed cardiomegaly with peribronchial thickening and interstitial prominence suggestive of fluid overload or pleural effusion. Patient does have dialysis and had dialysis today of admission and states is not sure how much they took off. She has been managed for acute decompensated heart failure. Patient has no complaints this morning. She does still complain of some shortness of breath but states is improving. Review of symptoms otherwise negative. Labs and vitals reviewed. Objective Data Objective Data Vital Signs: Vital Signs Temp Pulse Resp BP Pulse Ox 97.2 F L 67 16 111/52 L 97 11/26/20 13:17 11/26/20 13:20 11/26/20 13:17 11/26/20 13:17 11/26/20 13:17 Oxygen Flow Rate (L/min) 3 Oxygen Delivery Method Nasal Cannula Weight: 201 lb 4.513 oz Body Mass Index (BMI) 29.5 Intake & Output: Intake and Output for Last 24 Hours 11/24/20 11/25/20 11/26/20 23:59 23:59 23:59 Intake Total 220 / 220 360 / 360 Output Total 200 / 200 Balance 220 / 220 160 / 160 Medical Nutrition Assessment Dietitian: Nutrition Therapy Diagnosis Start: 11/25/20 17:20 Freq: Status: Active Protocol: Document 11/25/20 17:32 SHARAD (Rec: 11/25/20 17:32 SHARAD [id number]) Nutrition Malnutrition Evidence of Malnutrition Exists No Intake Problem Inadequate Oral Intake Etiology related to nausea Signs/Symptoms as evidenced by poor po intake x 2 wks prior to admission. Status Active Problem Clinical Problem Altered Nutrient-Related Laboratory Values Etiology related to renal/endocrine dysfunction Signs/Symptoms as evidenced by Na 134, K 2.7, Cr 2.33, gluc 118 Status Active Problem Recommendation Dietitian Recommendations/Changes Will change diet to Consistent CHO/ Sodium Restriction / 1500 ml fluid/day Will provide 120 ml Nepro CHO Steady w/ meals for increased nutrition if consumed Lab / Micro Data Result Diagrams: 11/26/20 07:37 11/26/20 07:37 Labs: Laboratory Results - last 24 hr 11/25/20 15:11: Troponin I High Sens Cancelled 11/25/20 16:25: Phosphorus 2.0 L, Troponin I High Sens 20.6 11/25/20 16:25: Troponin I High Sens Cancelled 11/25/20 16:25: Hemoglobin A1c 6.4 H 11/25/20 17:41: Sodium 132 L, Potassium 3.4 L, Chloride 94 L, Carbon Dioxide 35.0 H, Anion Gap 3 L, BUN 15, Creatinine 2.88 H, Estim Creat Clear Calc 21.17, Est GFR (MDRD) Af Amer 21 L, Est GFR (MDRD) Non-Af 18 L, BUN/Creatinine Ratio 5 .2 L, Glucose 107 H, Calcium 8.7, Troponin I High Sens 19.8 11/25/20 22:52: POC Glucose 80 11/26/20 07:29: POC Glucose 116 H 11/26/20 07:37: WBC 14.1 H, RBC 3.57 L, Hgb 10.2 L, Hct 33.3 L, MCV 93.3, MCH 28.6, MCHC 30.6 L, RDW Std Deviation 65.2 H, RDW Coeff of Grazyna 19.8 H, Plt Count 306, MPV 10.5, Immature Gran % (Auto) 0.600, Neut % (Auto) 79.1 H, Lymph % (Auto) 6.2 L, Fisher % (Auto) 11.9 H, Eos % (Auto) 1.8, Baso % (Auto) 0.4, A bsolute Neuts (auto) 11.1 H, Absolute Lymphs (auto) 0.87, Nucleated RBC % 0.2, Diff Path Review May foll, Hypochromasia 1+ 11/26/20 07:37: Sodium 131 L, Potassium 4.1, Chloride 95 L, Carbon Dioxide 31.0, Anion Gap 5, BUN 20 H, Creatinine 3.60 H, Estim Creat Clear Calc 16.93, Est GFR (MDRD) Af Amer 16 L, Est GFR (MDRD) Non-Af 14 L, BUN/Creatinine Ratio 5.6 L, Glucose 110 H, Calcium 8.7, Total Bilirubin 2.80 H, AST 69 H, ALT 31, Alkaline Phosphatase 601 H, Total Protein 7.5, Albumin 2.4 L, Globulin 5.1 H, Albumin/Globulin Ratio 0.5 L, Triglycerides 55, Cholesterol < 50, LDL Cholesterol TNP, VLDL Cholesterol 11, HDL Cholesterol 26 L 11/26/20 13:11: POC Glucose 188 H Micro: Microbiology 11/25/20 12:02 Mucosa - Nose SARS-CoV-2 Antigen (Rapid) - Final Radiography Diagnostic Testing: Radiology Impression Echocardiogram 11/25/20 15:50 Interpretation Summary Left ventricular systolic function is normal. The estimated ejection fraction is 55 %. Mildly dilated right ventricle. Mild global right ventricular systolic dysfunction. The right atrium is moderately enlarged. Stable appearing bioprosthetic mitral valve apparatus. Trivial transvalvular insufficiency of the mitral valve. Moderate (2+) tricuspid valve insufficiency. Mild focal aortic valve calcification. Mild (1+) pulmonic valve insufficiency. Right ventricular systolic pressure estimated to be 45 mmHg. Unable to assess diastolic dysfunction. Ordering Physician: Daiana Guajardo Referring Physician: Alphonse Marr Performed By: Oksana Ríos, KRAIG, RVT Physical Exam Const alert, oriented x3 and no apparent distress Exam Limitations: no limitations HEENT head/scalp atraumatic, moist oral mucous membranes, oropharynx normal and dentition normal Head and Scalp: normocephalic Eyes PERRL, EOMs intact bilaterally and conjunctivae normal Neck no lymphadenopathy Resp Resp Narrative: diminished breath sounds bibasally, no wheezes or crackles. on 4L of oxygen. Cardio regular rate, regular rhythm, S1 normal heart sound, S2 normal heart sound and no murmurs GI normal to inspection, nondistended, normoactive bowel sounds, soft to palpation, non-tender and non-distended Extremity normal to inspection, full ROM and no clubbing, cyanosis or edema Extremity Narrative: AV fistula with good thrill in LUE Peripheral Pulses: Yes pulses 2+ throughout Skin no rashes or lesions noted Neuro oriented x3, CN's II-XII intact bilaterally and moves all extremities Sensorium / Orientation: awake and alert Psych affect normal Assessment & Plan Assessment/Plan (1) ESRD (end stage renal disease) on dialysis: (2) CHF exacerbation: QUALIFIERS: Heart failure type: unspecified Qualified Code(s): I50.9 - Heart failure, unspecified (3) Hypoxia: PLAN: #acute on chronic heart failure with preserved EF * this is likely due to enough fluid not being taken off during dialysis * currently being dialysed with IV lasix * nephrology consulted; to have ultrafiltration today * troponins were negative * #Hypokalemia:resolved. K is 4.1 #ESRD on hemodialysis * has dialysis MWF. Did have dialysis on day of admission, but cant tell how much fluid was removed * nephrology consulted * #CAD: s/p stents. on aspirin, statin and metoprolol. #History of Mitral ema regurgitation; stable #Hypertension; on metoprolol hydralazine. #Hyperlipidemia: on statin #paroxysmal afib: on metoprolol. Eliquis on hold due to history of nose bleeds. #GERD on PPI DVT prophylaxis: heparin Charges/Coding Visit Charges Inpatient E&M: 35432 Subs Hosp L2
--- NOTE | 2020-11-26 16:00 | CASEMGMT ---
RN ELSY ARCHITECTURAL DESIGN PROFESSOR CM to room to meet with patient for initial transition planning/care coordination assessment. RN ELSY introduced self and role at [facility].? Pt voices understanding and consents to assessment at this time.? Pt sitting up in recliner chair in room in no distress at this time.? Dtr, Leena, in room visiting and pt agreeable to her being present during assessment. Pt is A/O at this time and answers all questions appropriately.?? Care providers, pharmacy, and demographics verified/updated at this time. PCP: Dr Alphonse Marr Specialists: Dr Schuler--endocrinology, Dr Fletcher--nephrology. Pt gets dialysis @ [facility], chair time: 744. Dr Harris-ENT Preferred Pharmacy: [facility] Insurance: [employer] [facility] Prescription Benefit: Yes? Living Will/HPOA:? Pt does not currently have LW/HCPOA and declines info at this time.? Pt made aware that she can contact [facility] as an out-pt and make appt in the future if she decides she would like to talk with someone about this or would like to utilize [facility] social work for advanced directive completion.? Given Accounts Clerk Rac card with information and contact number. Pt expresses understanding.? LNOK: , Vitor. Dtr, Leena [place]. Son, Lee [place]a. Pt requests for Leena and Lee to be listed as 1st and 2nd contacts. Living Arrangements: Lives w/her in 2-story home w/basement. FFSU. 5 steps to enter home w/double rails. Pt states it takes awhile to get up them, but I get up them. I take my time. Pt does not use the 2nd floor. Has 1/2 bath on main floor. Pt sponges bathes. Indep w/ADL's. Dtr/son help w/home mgmt tasks. Pt assist her who is disabled. Pt manages her own meds/appts. Transportation: Family, [place] to dialysis and appts, [facility] DME: ?States has the following DME:?shower chair (does not use currently), BSC, rollator, medical alert (does not use), Dexcom G6 glucometer system ?Pt has home O2 @ 2l/m via [facility] ? Pt states no need for further DME at this time.? HHC/SNF: Hx: RU @ [facility] after heart surgery. No hx of HHC. Pt wishes to return home and states has no concerns with going home at time of discharge. She denies need for HHC. ? CM to follow for increase in home oxygen needs and any further discharge planning/needs.? Pt voices no further concerns/needs at this time.? Advised pt to ask for CM if any further questions/concerns/needs arise.? Voices understanding. PLAN: ?Home w/discharge plans in place. Pt has home O2 @ 2 L/m. If pt requires more than 2 L/M O2 @ discharge, she will need updated O2 script faxed to [facility] w/increase in oxygen needs. Pt currently on 3 L/M. Green sheet placed on chart w/instructions if pt discharges home over the weekend. Reid SIUN RN CM
--- NOTE | 2020-11-26 16:56 | EKG12_ITS ---
Test Reason : REPEAT Blood Pressure : / mmHG Vent. Rate : 072 BPM Atrial Rate : 072 BPM P-R Int : 204 ms QRS Dur : 140 ms QT Int : 532 ms P-R-T Axes : 054 245 059 degrees QTc Int : 582 ms Atrial-sensed ventricular-paced rhythm Abnormal ECG Confirmed by MARIA T RUSSO, DEVANTE ([id number]), deputy editor in chief SHELDON MERAZ ([id number]) on 11/30/2020 10:14:38 AM Referred By: SWETHA Confirmed By:DEVANTE LIVE MD
[2020-11-26 18:06] LABS: Bedside Glucose 163 mg/dL (70-110)
[2020-11-26] MEDS: Ondansetron 4 MG/2 ML Vial IV (20:53)
[2020-11-26 21:20] LABS: Bedside Glucose 120 mg/dL (70-110)
[2020-11-26 22:02] LABS: Troponin-I HS 25.1 pg/mL (3.0-53.7)
[2020-11-27] VITALS (16 sets, daily range): BP systolic 121–155; BP diastolic 52–81; PULSE 66–76; RESP 14–18; TEMP 36.6–37; O2SAT 92–95
[2020-11-27] LABS: Troponin-I HS 24.7 pg/mL (3.0-53.7)
[2020-11-27 01:21] LABS: Bedside Glucose 68 mg/dL (70-110)
[2020-11-27 01:21] LABS: Bedside Glucose 64 mg/dL (70-110)
[2020-11-27] MEDS: Morphine 2 MG/ML Syringe IV (01:29)
[2020-11-27] MEDS: 0.9% Saline Lock 10 ML Syringe IV ×5 (01:30→21:21)
[2020-11-27] MEDS: proCHLORPERazine 10 MG/2 ML Vial 5 MG IV (03:05)
[2020-11-27 03:54] LABS: Absolute Neutrophil Count 12.1 X10^3/uL (2.0-7.7); Basophil# 0.07 X10^3/uL; Basophil% 0.5 % (0-1); Eosinophil# 0.39 X10^3/uL; Eosinophils% 2.6 % (0-5); Hematocrit 33.1 % (37-47); Hemoglobin 10.3 g/dL (12.0-15.0); Lymphocyte % 5.2 % (19-41); Mean Corp Hgb Conc 31.1 g/dL (32-36); Mean Corpuscular Hgb 28.7 pg (27.0-32.0); Mean Corpuscular Volume 92.2 fL (81-99); Mean Platelet Vol. 10.5 fl (6.2-12.0); Monocyte% 11.8 % (0-10); NRBC Flagged by Analyzer 0.1 % (0-5); Neutrophil # 12.14 X10^3/uL (2.7-7.7); Neutrophil % 79.4 % (47-70); POSITIVE DIFFERENTIAL YES; Platelet Count 318 K/mm3 (150-450); RBC Distribution Width CV 19.7 % (11.6-14.6); RBC Distribution Width SD 64.4 fl (35.1-43.9); Red Blood Count 3.59 M/mm3 (4.2-5.4); White Blood Count 15.3 K/mm3 (4.4-11.0)
[2020-11-27 03:58] LABS: Differential Indicated SCAN CRITERIA MET
[2020-11-27 04:29] LABS: Troponin-I HS 23.6 pg/mL (3.0-53.7)
[2020-11-27 05:08] LABS: Anion Gap 8 (5-15); BUN 29 mg/dL (7-18); BUN/Creat Ratio 6.3 RATIO (10-20); Calcium,Total 8.9 mg/dL (8.5-10.1); Chloride 93 mmol/L (98-107); Creatinine, Serum 4.58 mg/dL (0.55-1.02); EST Glomerular Filtration Rate 10 mL/min (>60); Est Glom Filt Rate - Afr Amer 12 mL/min (>60); Estimated Creatinine Clearance 13.31 ml/min; Glucose 94 mg/dL (74-106); Potassium 4.1 mmol/L (3.5-5.1); Sodium Level 132 mmol/L (136-145)
[2020-11-27] MEDS: hydrALAZINE 50 MG Tablet PO ×3 (05:51→21:21)
[2020-11-27] MEDS: Furosemide 40 MG/4 ML Vial IV ×3 (05:55→21:22)
[2020-11-27] MEDS: hydrOXYzine PAM 25 MG Capsule PO ×3 (05:55→21:22)
[2020-11-27 06:36] LABS: Bedside Glucose 120 mg/dL (70-110)
[2020-11-27 06:55] LABS: Differential Comment SCANNED; Hypochromasia 1+
[2020-11-27] MEDS: Acetaminophen 325 MG Tablet 650 MG PO ×2 (09:25→21:20)
[2020-11-27] MEDS: Heparin Injection (Vial) 5,000 UNIT/ML VIAL 5000 UNIT SC ×2 (09:25→21:21)
[2020-11-27] MEDS: Metoprolol(XL)Succ 50 MG Tablet PO ×2 (09:26→21:22)
[2020-11-27] MEDS: Pantoprazole Sodium 40 MG Tablet PO (09:26)
[2020-11-27] MEDS: Insulin Basal Pump 1 UNIT SC (09:26)
[2020-11-27] MEDS: Cholecalciferol (VIT D3) 25 MCG TABLET (1,000 UNITS) 125 MCG PO (09:26)
[2020-11-27] MEDS: Aspirin E.C. 81 MG Tablet PO (09:26)
[2020-11-27] MEDS: Atorvastatin Calcium 40 MG Tablet PO (09:26)
[2020-11-27] MEDS: Ascorbic Acid 500 MG Tablet PO (09:27)
--- NOTE | 2020-11-27 10:06 | PN.HOSP_ITS ---
Subjective Subjective Patient seen and examined. She has no complaints, but still looks very weak and frail. She had ultrafiltration done by nephrology yesterday. She denies any chest pain, palpitations dizziness, nausea or vomiting. Review of systems is otherwise negative.. Objective Data Objective Data Vital Signs: Vital Signs Temp Pulse Resp BP Pulse Ox 98.4 F 76 18 152/71 H 92 11/27/20 09:25 11/27/20 09:26 11/27/20 09:25 11/27/20 09:25 11/27/20 09:25 Oxygen Flow Rate (L/min) 3 Oxygen Delivery Method Nasal Cannula Weight: 198 lb 11.2 oz Body Mass Index (BMI) 29.5 Intake & Output: Intake and Output for Last 24 Hours 11/25/20 11/26/20 11/27/20 23:59 23:59 23:59 Intake Total 220 / 220 360 / 360 600 / 600 Output Total 450 / 450 40 / 40 Balance 220 / 220 -90 / -90 560 / 560 Medical Nutrition Assessment Dietitian: Nutrition Therapy Diagnosis Start: 11/25/20 17:20 Freq: Status: Active Protocol: Document 11/25/20 17:32 SHARAD (Rec: 11/25/20 17:32 [facility] [id number]) Nutrition Malnutrition Evidence of Malnutrition Exists No Intake Problem Inadequate Oral Intake Etiology related to nausea Signs/Symptoms as evidenced by poor po intake x 2 wks prior to admission. Status Active Problem Clinical Problem Altered Nutrient-Related Laboratory Values Etiology related to renal/endocrine dysfunction Signs/Symptoms as evidenced by Na 134, K 2.7, Cr 2.33, gluc 118 Status Active Problem Recommendation Dietitian Recommendations/Changes Will change diet to Consistent CHO/ Sodium Restriction / 1500 ml fluid/day Will provide 120 ml Nepro CHO Steady w/ meals for increased nutrition if consumed Lab / Micro Data Result Diagrams: 11/27/20 03:36 11/27/20 03:36 Labs: Laboratory Results - last 24 hr 11/26/20 06:40: POC Glucose 68 L 11/26/20 06:56: POC Glucose 64 L 11/26/20 13:11: POC Glucose 188 H 11/26/20 17:48: POC Glucose 163 H 11/26/20 20:42: POC Glucose 120 H 11/26/20 21:35: Troponin I High Sens 25.1 11/26/20 23:34: Troponin I High Sens 24.7 11/27/20 03:36: WBC 15.3 H, RBC 3.59 L, Hgb 10.3 L, Hct 33.1 L, MCV 92.2, MCH 28.7, MCHC 31.1 L, RDW Std Deviation 64.4 H, RDW Coeff of Grazyna 19.7 H, Plt Count 318, MPV 10.5, Immature Gran % (Auto) 0.500, Neut % (Auto) 79.4 H, Lymph % (Auto) 5.2 L, Da[place]hin % (Auto) 11.8 H, Eos % (Auto) 2.6, Baso % (Auto) 0.5, Absolute Neuts (auto) 12.1 H, Absolute Lymphs (auto) 0.80 L, Nucleated RBC % 0.1, Differential Comment SCANNED, Diff Path Review May foll, Hypochromasia 1+ 11/27/20 03:36: Sodium 132 L, Potassium 4.1, Chloride 93 L, Carbon Dioxide 31.0, Anion Gap 8, BUN 29 H, Creatinine 4.58 H, Estim Creat Clear Calc 13.31, Est GFR (MDRD) Af Amer 12 L, Est GFR (MDRD) Non-Af 10 L, BUN/Creatinine Ratio 6.3 L, Glucose 94, Calcium 8.9 11/27/20 03:36: Troponin I High Sens 23.6 11/27/20 05:54: POC Glucose 120 H Micro: Microbiology 11/25/20 12:02 Mucosa - Nose SARS-CoV-2 Antigen (Rapid) - Final Radiography Diagnostic Testing: Radiology Impression Echocardiogram 11/25/20 15:50 Interpretation Summary Left ventricular systolic function is normal. The estimated ejection fraction is 55 %. Mildly dilated right ventricle. Mild global right ventricular systolic dysfunction. The right atrium is moderately enlarged. Stable appearing bioprosthetic mitral valve apparatus. Trivial transvalvular insufficiency of the mitral valve. Moderate (2+) tricuspid valve insufficiency. Mild focal aortic valve calcification. Mild (1+) pulmonic valve insufficiency. Right ventricular systolic pressure estimated to be 45 mmHg. Unable to assess diastolic dysfunction. Ordering Physician: Daiana Guajardo Referring Physician: Alphonse Marr Performed By: Oksana Ríos, RDCS, RVT Physical Exam Const alert, oriented x3 and no apparent distress Constitutional Narrative: looks very frail and weak Exam Limitations: no limitations HEENT head/scalp atraumatic, moist oral mucous membranes and oropharynx normal Head and Scalp: normocephalic Eyes PERRL, EOMs intact bilaterally and conjunctivae normal Neck no lymphadenopathy Resp Resp Narrative: diminished breath sounds bibasally, no wheezes or crackles. on 3L of oxygen. Cardio regular rate, regular rhythm, S1 normal heart sound, S2 normal heart sound and no murmurs GI normal to inspection, nondistended, normoactive bowel sounds, soft to palpation, non-tender and non-distended Extremity normal to inspection and full ROM Extremity Narrative: AV fistula with good thrill in LUE; 1+ bipedal pitting edema Peripheral Pulses: Yes pulses 2+ throughout Skin no rashes or lesions noted Neuro oriented x3, CN's II-XII intact bilaterally and moves all extremities Sensorium / Orientation: awake and alert Psych affect normal Assessment & Plan Assessment/Plan (1) ESRD (end stage renal disease) on dialysis: (2) CHF exacerbation: QUALIFIERS: Heart failure type: unspecified Qualified Code(s): I50.9 - Heart failure, unspecified (3) Hypoxia: PLAN: #acute on chronic heart failure with preserved EF * still has lower extremity edema * on IV lasix * had ultrafilitration yesterday with removal of fluid. * still does have some lower extremity edema * moitor intake and output. Fluid restriction to 1500cc daily. * * #Chronic respiratory failure * due to heart failure * on 2L of oxygen at home; currently on 3L of oxygen. * #Hypokalemia:resolved. #ESRD on hemodialysis * has dialysis MWF. * nephrology on board. * #CAD: s/p stents. on aspirin, statin and metoprolol. #History of Mitral ema regurgitation; stable #Hypertension; on metoprolol hydralazine. #Hyperlipidemia: on statin #paroxysmal afib: on metoprolol. Eliquis on hold due to history of nose bleeds. #GERD on PPI DVT prophylaxis: heparin Charges/Coding Visit Charges Inpatient E&M: 73235 Subs Hosp L2
[2020-11-27] MEDS: Lidocaine 5% Patch 1 PATCH TOPICAL (10:48)
--- NOTE | 2020-11-27 10:57 | PN.RENAL_ITS ---
Subjective Subjective Following for ESRD. The patient feels better today. She is less short of breath after ultrafiltration last night. There is no increasing edema. She was nauseated earlier this morning without vomiting. Nausea has resolved for now. Objective Data Objective Data Vital Signs: Vital Signs Temp Pulse Resp BP Pulse Ox 98.4 F 76 18 152/71 H 92 11/27/20 09:25 11/27/20 09:26 11/27/20 09:25 11/27/20 09:25 11/27/20 09:25 Oxygen Flow Rate (L/min) 3 Oxygen Delivery Method Nasal Cannula Weight: 90.129 kg Body Mass Index (BMI) 29.5 Intake & Output: Intake and Output for Last 24 Hours 11/25/20 11/26/20 11/27/20 23:59 23:59 23:59 Intake Total 220 / 220 360 / 360 600 / 600 Output Total 450 / 450 40 / 40 Balance 220 / 220 -90 / -90 560 / 560 Medical Nutrition Assessment Dietitian: Nutrition Therapy Diagnosis Start: 11/25/20 17:20 Freq: Status: Active Protocol: Document 11/25/20 17:32 SHARAD (Rec: 11/25/20 17:32 [facility] [id number]) Nutrition Malnutrition Evidence of Malnutrition Exists No Intake Problem Inadequate Oral Intake Etiology related to nausea Signs/Symptoms as evidenced by poor po intake x 2 wks prior to admission. Status Active Problem Clinical Problem Altered Nutrient-Related Laboratory Values Etiology related to renal/endocrine dysfunction Signs/Symptoms as evidenced by Na 134, K 2.7, Cr 2.33, gluc 118 Status Active Problem Recommendation Dietitian Recommendations/Changes Will change diet to Consistent CHO/ Sodium Restriction / 1500 ml fluid/day Will provide 120 ml Nepro CHO Steady w/ meals for increased nutrition if consumed Lab / Micro Data Result Diagrams: 11/27/20 03:36 11/27/20 03:36 Labs: Laboratory Results - last 24 hr 11/26/20 06:40: POC Glucose 68 L 11/26/20 06:56: POC Glucose 64 L 11/26/20 13:11: POC Glucose 188 H 11/26/20 17:48: POC Glucose 163 H 11/26/20 20:42: POC Glucose 120 H 11/26/20 21:35: Troponin I High Sens 25.1 11/26/20 23:34: Troponin I High Sens 24.7 11/27/20 03:36: WBC 15.3 H, RBC 3.59 L, Hgb 10.3 L, Hct 33.1 L, MCV 92.2, MCH 28.7, MCHC 31.1 L, RDW Std Deviation 64.4 H, RDW Coeff of Grazyna 19.7 H, Plt Count 318, MPV 10.5, Immature Gran % (Auto) 0.500, Neut % (Auto) 79.4 H, Lymph % (Auto) 5.2 L, Rout[place] % (Auto) 11.8 H, Eos % (Auto) 2.6, Baso % (Auto) 0.5, Absolute Neuts (auto) 12.1 H, Absolute Lymphs (auto) 0.80 L, Nucleated RBC % 0.1, Differential Comment SCANNED, Diff Path Review May foll, Hypochromasia 1+ 11/27/20 03:36: Sodium 132 L, Potassium 4.1, Chloride 93 L, Carbon Dioxide 31.0, Anion Gap 8, BUN 29 H, Creatinine 4.58 H, Estim Creat Clear Calc 13.31, Est GFR (MDRD) Af Amer 12 L, Est GFR (MDRD) Non-Af 10 L, BUN/Creatinine Ratio 6.3 L, Glucose 94, Calcium 8.9 11/27/20 03:36: Troponin I High Sens 23.6 11/27/20 05:54: POC Glucose 120 H Micro: Microbiology 11/25/20 12:02 Mucosa - Nose SARS-CoV-2 Antigen (Rapid) - Final Radiography Diagnostic Testing: Radiology Impression Echocardiogram 11/25/20 15:50 Interpretation Summary Left ventricular systolic function is normal. The estimated ejection fraction is 55 %. Mildly dilated right ventricle. Mild global right ventricular systolic dysfunction. The right atrium is moderately enlarged. Stable appearing bioprosthetic mitral valve apparatus. Trivial transvalvular insufficiency of the mitral valve. Moderate (2+) tricuspid valve insufficiency. Mild focal aortic valve calcification. Mild (1+) pulmonic valve insufficiency. Right ventricular systolic pressure estimated to be 45 mmHg. Unable to assess diastolic dysfunction. Ordering Physician: Daiana Guajardo Referring Physician: Alphonse Marr Performed By: Oksana Ríos, KRAIG, RVT Physical Exam Narrative General: Alert and oriented x3 in no apparent distress. HEENT: Normocephalic, atraumatic. Mucous membrane moist without erythema. Neck: Supple. Heart: Normal S1, S2. No rubs or murmurs. Lungs: Clear to auscultation bilaterally. Abdomen: Normal bowel sounds, soft, nontender, no guarding or rebound. Extremity: Trace edema in the lower extremities. No clubbing or cyanosis. Assessment & Plan Assessment/Plan (1) ESRD (end stage renal disease) on dialysis: PLAN: The patient usually dialyzes on a Saturday, Saturday and Saturday schedule at [facility] dialysis center. She is followed there by Dr. Glynn. There is no need for dialysis today. I will arrange for dialysis on her usual schedule tomorrow. Ultrafiltration tomorrow with dialysis. (2) Anemia: PLAN: Hemoglobin is at goal for dialysis patient. We will find out what her usual BARBRA dose is with dialysis on 11/28/2020. (3) HTN (hypertension): PLAN: BP is reasonably controlled on metoprolol and hydralazine. Continue current medications. BP should also stabilize with ultrafiltration. (4) CHF exacerbation: QUALIFIERS: Heart failure type: unspecified Qualified Code(s): I50.9 - Heart failure, unspecified PLAN: Not sure what her systolic function is since there is no e chocardiogram in our system. Clinically improved after ultrafiltration yesterday. No further need for UF for dialysis today. We will plan on dialysis again tomorrow on her usual schedule with more ultrafiltration.
[2020-11-27 11:26] LABS: Bedside Glucose 102 mg/dL (70-110)
[2020-11-27 16:16] LABS: Bedside Glucose 91 mg/dL (70-110)
[2020-11-27 21:55] LABS: Bedside Glucose 121 mg/dL (70-110)
[2020-11-28] VITALS (12 sets, daily range): BP systolic 108–144; BP diastolic 48–69; PULSE 61–69; RESP 14–18; TEMP 36.2–36.6; O2SAT 92–95
[2020-11-28] MEDS: Ondansetron 4 MG/2 ML Vial IV (05:06)
[2020-11-28] MEDS: 0.9% Saline Lock 10 ML Syringe IV ×6 (05:06→20:36)
[2020-11-28] MEDS: Furosemide 40 MG/4 ML Vial IV ×3 (05:06→18:31)
[2020-11-28 05:16] LABS: Bedside Glucose 104 mg/dL (70-110)
[2020-11-28 05:20] LABS: Absolute Neutrophil Count 10.3 X10^3/uL (2.0-7.7); Basophil# 0.05 X10^3/uL; Basophil% 0.4 % (0-1); Eosinophil# 0.37 X10^3/uL; Eosinophils% 2.8 % (0-5); Hemoglobin 10.2 g/dL (12.0-15.0); Lymphocyte % 6.1 % (19-41); Mean Corp Hgb Conc 31.9 g/dL (32-36); Mean Corpuscular Hgb 28.8 pg (27.0-32.0); Mean Corpuscular Volume 90.4 fL (81-99); Mean Platelet Vol. 10.6 fl (6.2-12.0); Monocyte# 1.63 X10^3/uL; Monocyte% 12.3 % (0-10); NRBC Flagged by Analyzer 0.2 % (0-5); Neutrophil # 10.28 X10^3/uL (2.7-7.7); Neutrophil % 77.8 % (47-70); POSITIVE DIFFERENTIAL YES; Platelet Count 300 K/mm3 (150-450); RBC Distribution Width SD 64.3 fl (35.1-43.9); Red Blood Count 3.54 M/mm3 (4.2-5.4); White Blood Count 13.2 K/mm3 (4.4-11.0)
[2020-11-28 05:35] LABS: Differential Indicated SCAN CRITERIA MET
[2020-11-28 05:45] LABS: Anion Gap 9 (5-15); BUN 40 mg/dL (7-18); BUN/Creat Ratio 7.2 RATIO (10-20); Calcium,Total 9.1 mg/dL (8.5-10.1); Chloride 91 mmol/L (98-107); Creatinine, Serum 5.55 mg/dL (0.55-1.02); EST Glomerular Filtration Rate 8 mL/min (>60); Est Glom Filt Rate - Afr Amer 10 mL/min (>60); Estimated Creatinine Clearance 10.98 ml/min; Glucose 92 mg/dL (74-106); Potassium 4.6 mmol/L (3.5-5.1); Sodium Level 130 mmol/L (136-145)
[2020-11-28] MEDS: proCHLORPERazine 10 MG/2 ML Vial 5 MG IV ×2 (06:10→10:41)
[2020-11-28 07:03] LABS: Anisocytosis 1+
--- NOTE | 2020-11-28 09:20 | PN.RENAL_ITS ---
Subjective Subjective Patient is complaining of SOB and nausea No CP. No diarrhea Objective Data Objective Data Vital Signs: Vital Signs Temp Pulse Resp BP Pulse Ox 97.9 F 69 14 120/51 L 95 11/28/20 04:20 11/28/20 07:22 11/28/20 04:20 11/28/20 04:20 11/28/20 04:20 Oxygen Flow Rate (L/min) 3 Oxygen Delivery Method Nasal Cannula Weight: 90.3 kg Body Mass Index (BMI) 29.5 Intake & Output: Intake and Output for Last 24 Hours 11/26/20 11/27/20 11/28/20 23:59 23:59 23:59 Intake Total 360 / 360 864 / 864 540 / 540 Output Total 450 / 450 90 / 90 30 / 30 Balance -90 / -90 774 / 774 510 / 510 Medical Nutrition Assessment Dietitian: Nutrition Therapy Diagnosis Start: 11/25/20 17:20 Freq: Status: Active Protocol: Document 11/25/20 17:32 SHARAD (Rec: 11/25/20 17:32 [facility] [id number]) Nutrition Malnutrition Evidence of Malnutrition Exists No Intake Problem Inadequate Oral Intake Etiology related to nausea Signs/Symptoms as evidenced by poor po intake x 2 wks prior to admission. Status Active Problem Clinical Problem Altered Nutrient-Related Laboratory Values Etiology related to renal/endocrine dysfunction Signs/Symptoms as evidenced by Na 134, K 2.7, Cr 2.33, gluc 118 Status Active Problem Recommendation Dietitian Recommendations/Changes Will change diet to Consistent CHO/ Sodium Restriction / 1500 ml fluid/day Will provide 120 ml Nepro CHO Steady w/ meals for increased nutrition if consumed Lab / Micro Data Result Diagrams: 11/28/20 04:50 11/28/20 04:50 Labs: Laboratory Results - last 24 hr 11/27/20 11:12: POC Glucose 102 11/27/20 16:07: POC Glucose 91 11/27/20 21:19: POC Glucose 121 H 11/28/20 04:50: WBC 13.2 H, RBC 3.54 L, Hgb 10.2 L, Hct 32.0 L, MCV 90.4, MCH 28.8, MCHC 31.9 L, RDW Std Deviation 64.3 H, RDW Coeff of Grazyna 20.0 H, Plt Count 300, MPV 10.6, Immature Gran % (Auto) 0.600, Neut % (Auto) 77.8 H, Lymph % (Auto) 6.1 L, Gall[place] % (Auto) 12.3 H, Eos % (Auto) 2.8, Baso % (Auto) 0.4, Absolute Neuts (auto) 10.3 H, Absolute Lymphs (auto) 0.80 L, Nucleated RBC % 0.2, Diff Path Review May foll, Anisocytosis 1+ 11/28/20 04:50: Sodium 130 L, Potassium 4.6, Chloride 91 L, Carbon Dioxide 30.0, Anion Gap 9, BUN 40 H, Creatinine 5.55 H, Estim Creat Clear Calc 10.98, Est GFR (MDRD) Af Amer 10 L, Est GFR (MDRD) Non-Af 8 L, BUN/Creatinine Ratio 7.2 L, Glucose 92, Calcium 9.1 11/28/20 05:11: POC Glucose 104 Micro: Microbiology 11/25/20 12:02 Mucosa - Nose SARS-CoV-2 Antigen (Rapid) - Final Physical Exam Narrative General: Alert and oriented x3 in no apparent distress. HEENT: Normocephalic, atraumatic. Mucous membrane moist without erythema. Neck: Supple. Heart: Normal S1, S2. No rubs or murmurs. Lungs: Clear to auscultation bilaterally. Abdomen: Normal bowel sounds, soft, nontender, no guarding or rebound. Extremity: Trace edema in the lower extremities. No clubbing or cyanosis. Assessment & Plan Assessment/Plan (1) ESRD (end stage renal disease) on dialysis: PLAN: The patient usually dialyzes on a Saturday, Saturday and Saturday schedule at [facility] dialysis [place]. She is followed there by Dr. Glynn. HD session today : BQ 400 DQ 600 UF 3L. HD access RUE AVF. (2) Anemia: PLAN: Hemoglobin is at goal for dialysis patient. . (3) HTN (hypertension): PLAN: BP is reasonably controlled on metoprolol and hydralazine. Continue current medications. BP should also stabilize with ultrafiltration. (4) CHF exacerbation: QUALIFIERS: Heart failure type: unspecified Qualified Code(s): I50.9 - Heart failure, unspecified PLAN: Not sure what her systolic function is since there is no echocardiogram in our system. Clinically improved after ultrafiltration yesterday. No further need for UF for dialysis today. We will plan on dialysis again tomorrow on her usual schedule with more ultrafiltration.
[2020-11-28] MEDS: Cholecalciferol (VIT D3) 25 MCG TABLET (1,000 UNITS) 125 MCG PO (10:29)
[2020-11-28] MEDS: Pantoprazole Sodium 40 MG Tablet PO (10:29)
[2020-11-28] MEDS: Ascorbic Acid 500 MG Tablet PO (10:30)
[2020-11-28] MEDS: Aspirin E.C. 81 MG Tablet PO (10:30)
[2020-11-28] MEDS: Acetaminophen 325 MG Tablet 650 MG PO (10:31)
[2020-11-28] MEDS: Lidocaine 5% Patch 1 PATCH TOPICAL (10:32)
[2020-11-28] MEDS: Atorvastatin Calcium 40 MG Tablet PO (10:32)
[2020-11-28] MEDS: Heparin Injection (Vial) 5,000 UNIT/ML VIAL 5000 UNIT SC ×2 (10:32→20:35)
[2020-11-28] MEDS: Metoprolol(XL)Succ 50 MG Tablet PO ×2 (12:00→20:35)
[2020-11-28] MEDS: Senna/Docusate Sodium 1 Tablet 2 TABLET PO (12:00)
--- NOTE | 2020-11-28 12:17 | US_ITS ---
STUDY: ABDOMINAL ULTRASOUND - RIGHT UPPER QUADRANT REASON FOR VISIT: Female, 60 years old elevated liver enzymes, suspect gallbladder path TECHNIQUE: Ultrasound evaluation of the right upper quadrant was performed with real-time and static noble-scale imaging. TECHNICAL QUALITY: Adequate. COMPARISON: None. FINDINGS: Liver: The liver is mildly enlarged and measures 19.3 cm. There is increased echogenicity consistent with fatty infiltration. The bile ducts are within normal limits. There is hepatic color flow. The direction of portal flow is hepatopetal. There is no demonstrated mass lesion. Gallbladder: Normal distended gallbladder. The gallbladder wall measures 4 mm. There is a positive sonographic Da Silva''s sign. There is pericholecystic fluid. Sludge is seen within the gallbladder lumen. Common Bile Duct (C.B.D.): The common bile duct measures 6 mm. Pancreas: Normal size of the head, body and tail of the pancreas. There is normal echogenicity of the pancreas. There is no demonstrated pancreatic mass or cyst. Right Kidney: Normal size of the right kidney. The right kidney measures 10.2 cm x 6.2 cm x 5.9 cm. Normal renal cortex. The right cortex measures 1.2 cm. There is no demonstrated renal mass or cyst. There is no right hydronephrosis. Ascites. US/Gallbladder IMPRESSION: Ascites. Mild hepatomegaly and diffuse fatty infiltration of the liver. Sludge is seen within the gallbladder lumen. Electronically Signed: Micah Zelaya MD at 14:27 EDT , Service support ,
--- NOTE | 2020-11-28 12:38 | EKG12_ITS ---
Test Reason : CP Blood Pressure : / mmHG Vent. Rate : 073 BPM Atrial Rate : 073 BPM P-R Int : 246 ms QRS Dur : 106 ms QT Int : 412 ms P-R-T Axes : 066 -23 155 degrees QTc Int : 453 ms Sinus rhythm with 1st degree A-V block ST & T wave abnormality, consider inferior ischemia Abnormal ECG Confirmed by MARIA T RUSSO, DEVANTE ([id number]), health editor SHELDON MERAZ ([id number]) on 11/30/2020 10:14:53 AM Referred By: SWETHA Confirmed By:DEVANTE LIVE MD
[2020-11-28 13:06] LABS: International Normalized Ratio 1.3; Prothrombin Time (Protime)PT. 15.4 SECONDS (11.7-14.9)
[2020-11-28 13:09] LABS: Mucous, Urine 0 SEEN /hpf (<or=2+)
[2020-11-28 13:11] LABS: Color, Urine Yellow (Yellow); Glucose, Dipstick Normal (Normal); Ketone-Dipstick 5 mg/dl (Negative); Leukocyte Esterase-Dipstick 500 /ul (Negative); Nitrite-Dipstick Negative (Negative); Occult Blood-Urine 150 /ul (Negative); Protein-Dipstick 100 mg/dl (Negative); Specific Gravity, Urine 1.015 (1.002-1.030); Urine Clarity Cloudy (Clear); Urine Urobilinogen 1 mg/dl (Normal)
[2020-11-28 13:13] LABS: Urine Bilirubin Dipstick 3 mg/dL (Negative)
[2020-11-28 13:19] LABS: Bacteria 2+ /hpf (None Seen); Red Blood Cells-Urine 5-10 SEEN /hpf (0-5); Squamous Epithelial Cells - UA 0-5 SEEN /hpf (5-10); White Blood Cells 5-10 SEEN /hpf (0-5)
[2020-11-28 13:20] LABS: Bedside Glucose 82 mg/dL (70-110)
[2020-11-28 13:27] LABS: AST(SGOT) 37 U/L (15-37); Alanine Aminotransfer ALT/SGPT 20 U/L (13-56); Albumin, Serum 2.5 g/dL (3.2-5.0); Alkaline Phosphatase 696 U/L (45-117); Bilirubin, Direct 2.44 mg/dL (0.00-0.30); Globulin 5.8 g/dL (2.2-4.2); Protein, Total 8.3 g/dL (6.4-8.2)
[2020-11-28 13:29] LABS: Ammonia < 10.0 umol/L (11-32); Troponin-I HS 18.8 pg/mL (3.0-53.7)
--- NOTE | 2020-11-28 13:32 | DIALYSIS ---
HD discontinued 30 minutes early per pt request d/t chest pain/back pain. Signed an AMA. Dr. He was notified. Ran on 2k bath. UF of 3400ml. Used right arm access. [place] removed post tx and pressure applied x 10 minutes. Hemostasis achieved. Fresh gauze and tape applied. See tx sheet for more details. Report was given to OLINDA Lehman.
[2020-11-28] MEDS: Morphine 2 MG/ML Syringe IV (14:25)
--- NOTE | 2020-11-28 14:33 | PN.HOSP_ITS ---
Subjective Subjective Patient seen and examined. SHe looked frail and weak. She denied any fever, chills, nausea or vomiting or abdominal pain. However, she kept saying she didnt feel good. Review of systems otherwise negative. WBc remains elevated at 13.2, and bilirubin is elevated at 2.9, and ALP is also elevated. Objective Data Objective Data Vital Signs: Vital Signs Temp Pulse Resp BP Pulse Ox 97.4 F L 66 18 134/61 H 95 11/28/20 11:35 11/28/20 12:00 11/28/20 11:35 11/28/20 12:00 11/28/20 10:20 Oxygen Flow Rate (L/min) 4 Oxygen Delivery Method Nasal Cannula Weight: 199 lb 1.239 oz Body Mass Index (BMI) 29.5 Intake & Output: Intake and Output for Last 24 Hours 11/26/20 11/27/20 11/28/20 23:59 23:59 23:59 Intake Total 360 / 360 864 / 864 780 / 780 Output Total 450 / 450 90 / 90 130 / 130 Balance -90 / -90 774 / 774 650 / 650 Medical Nutrition Assessment Dietitian: Malnutrition Criteria Met Start: 11/25/20 17:20 Freq: Status: Active Protocol: Document 11/25/20 17:32 SHARAD (Rec: 11/25/20 17:32 [facility] [id number]) Nutrition Malnutrition Evidence of Malnutrition Exists No Intake Problem Inadequate Oral Intake Etiology related to nausea Signs/Symptoms as evidenced by poor po intake x 2 wks prior to admission. Status Active Problem Clinical Problem Altered Nutrient-Related Laboratory Values Etiology related to renal/endocrine dysfunction Signs/Symptoms as evidenced by Na 134, K 2.7, Cr 2.33, gluc 118 Status Active Problem Recommendation Dietitian Recommendations/Changes Will change diet to Consistent CHO/ Sodium Restriction / 1500 ml fluid/day Will provide 120 ml Nepro CHO Steady w/ meals for increased nutrition if consumed Lab / Micro Data Result Diagrams: 11/28/20 04:50 11/28/20 04:50 Labs: Laboratory Results - last 24 hr 11/27/20 16:07: POC Glucose 91 11/27/20 21:19: POC Glucose 121 H 11/28/20 04:50: WBC 13.2 H, RBC 3.54 L, Hgb 10.2 L, Hct 32.0 L, MCV 90.4, MCH 28.8, MCHC 31.9 L, RDW Std Deviation 64.3 H, RDW Coeff of Grazyna 20.0 H, Plt Count 300, MPV 10.6, Immature Gran % (Auto) 0.600, Neut % (Auto) 77.8 H, Lymph % (Auto) 6.1 L, Gates % (Auto) 12.3 H, Eos % (Auto) 2.8, Baso % (Auto) 0.4, Absolute Neuts (auto) 10.3 H, Absolute Lymphs (auto) 0.80 L, Nucleated RBC % 0 .2, Diff Path Review August, Anisocytosis 1+ 11/28/20 04:50: Sodium 130 L, Potassium 4.6, Chloride 91 L, Carbon Dioxide 30.0, Anion Gap 9, BUN 40 H, Creatinine 5.55 H, Estim Creat Clear Calc 10.98, Est GFR (MDRD) Af Amer 10 L, Est GFR (MDRD) Non-Af 8 L, BUN/Creatinine Ratio 7.2 L, Glucose 92, Calcium 9.1 11/28/20 05:11: POC Glucose 104 11/28/20 10:55: Urine Color Yellow, Urine Clarity Cloudy, Urine pH 5.0, Ur Specific [place] 1.015, Urine Protein 100 H, Urine Glucose (UA) Normal, Urine Ketones 5 H, Urine Occult Blood 150 H, Urine Nitrite Negative, Urine Bilirubin 3 H, Urine Urobilinogen 1 H, Ur Leukocyte Esterase 500 H, Urine RBC 5-10 SEEN, Urine WBC 5-10 SEEN, Ur Squamous Epith Cells 0-5 SEEN, Urine Bacteria 2+, Urine Mucus 0 SEEN 11/28/20 11:54: POC Glucose 82 11/28/20 12:46: Total Bilirubin 2.90 H, Direct Bilirubin 2.44 H, AST 37, ALT 20, Alkaline Phosphatase 696 H, Total Protein 8.3 H, Albumin 2.5 L, Globulin 5.8 H 11/28/20 12:46: Ammonia < 10.0 L 11/28/20 12:46: PT 15.4 H, INR 1.3 11/28/20 12:46: Troponin I High Sens 18.8 Micro: Microbiology 11/25/20 12:02 Mucosa - Nose SARS-CoV-2 Antigen (Rapid) - Final Radiography Diagnostic Testing: Radiology Impression Gallbladder Ultrasound 11/28/20 12:17 IMPRESSION: Ascites. Mild hepatomegaly and diffuse fatty infiltration of the liver. Sludge is seen within the gallbladder lumen. Electronically Signed: Micah Zelaya MD at 14:27 EDT , Service support , Physical Exam Const alert, oriented x3 and no apparent distress Constitutional Narrative: looks very frail and weak Exam Limitations: no limitations HEENT head/scalp atraumatic, moist oral mucous membranes and oropharynx normal Head and Scalp: normocephalic Eyes PERRL, EOMs intact bilaterally and conjunctivae normal Neck no lymphadenopathy Resp Resp Narrative: diminished breath sounds bibasally, no wheezes or crackles. on 3L of oxygen. Cardio regular rate, regular rhythm, S1 normal heart sound, S2 normal heart sound and no murmurs GI normal to inspection, nondistended, normoactive bowel sounds, soft to palpation, non-tender and non-distended Extremity normal to inspection and full ROM Extremity Narrative: AV fistula with good thrill in LUE; 1+ bipedal pitting edema Skin no rashes or lesions noted Neuro oriented x3, CN's II-XII intact bilaterally and moves all extremities Sensorium / Orientation: awake and alert Psych affect normal Assessment & Plan Assessment/Plan (1) ESRD (end stage renal disease) on dialysis: (2) CHF exacerbation: QUALIFIERS: Heart failure type: unspecified Qualified Code(s): I50.9 - Heart failure, unspecified (3) Hypoxia: PLAN: #acute on chronic heart failure with preserved EF * patient now feeling better respiratory-castro. * on IV lasix * nephrology on board for diuresis. * still does have some lower extremity edema * monitor intake and output. Fluid restriction to 1500cc daily. * #Suspected acute cholecystitis * patient had elevated liver enzymes; with bilirubin of 2.8 on admission * bilirubin today is 2.9 and direct bilirubin is also elevated * gallbladder USG done today showed mild hepatomegaly and diffuse fatty infiltration of the liver, with sludge in the gallbladder lumen. * general surgery consulted; will keep NPO past midnight for lap cholecystectomy * #Chronic respiratory failure * due to heart failure * on 2L of oxygen at home; currently on 3L of oxygen. * #Hypokalemia:resolved. #ESRD on hemodialysis * has dialysis MWF. * nephrology on board. * #CAD: s/p stents. on aspirin, statin and metoprolol. #History of Mitral ema regurgitation; stable #Hypertension; on metoprolol hydralazine. #Hyperlipidemia: on statin #paroxysmal afib: on metoprolol. Eliquis on hold due to history of nose bleeds. #GERD on PPI DVT prophylaxis: heparin Charges/Coding Visit Charges Inpatient E&M: 32755 Subs Hosp L3
[2020-11-28 15:32] LABS: Pathologist Review Reviewed
[2020-11-28 15:40] LABS: Pathologist Review Reviewed
[2020-11-28 15:49] LABS: Pathologist Review Reviewed
--- NOTE | 2020-11-28 16:44 | CT_ITS ---
HISTORY: elevated liver enzymes EXAMINATION: CT Abdomen And Pelvis W/O Contrast Injection TECHNIQUE: Multiple axial images were obtained of the abdomen and pelvis without oral or IV contrast. A radiation dose optimization technique was used for this scan. IV Contrast dosage and agent: None. Oral contrast: None. COMPARISON: CTA chest 11/25/20 FINDINGS: LOWER CHEST: Persistent right pleural effusion with adjacent consolidation. Interval development small left pleural effusion with adjacent consolidation. Cardiomegaly, no pericardial effusion. LIVER: Homogenous enlargement to 21 cm normal noncontrast attenuation. No gross focal mass. GALLBLADDER AND BILIARY TREE: Calcified gallstones. No gallbladder distension or wall edema, trace ascites in the gallbladder fossa may obscure gallbladder wall changes. No intra- or extrahepatic biliary ductal dilation. PANCREAS: No focal cystic or solid mass. SPLEEN: Normal size without focal cystic or solid mass. ADRENAL GLANDS: No nodules. KIDNEYS AND URETERS: No hydronephrosis or nephrolithiasis. PERITONEUM: No free air. Moderate ascites. BOWEL: No evidence of acute appendicitis. No stomach or bowel distension. No gross focal inflammatory bowel wall changes, the presence of ascites may obscure bowel wall changes. LYMPH NODES: No enlarged mesenteric or retroperitoneal lymph nodes. VESSELS: Aorta is non-dilated. URINARY BLADDER: Drained by Vargas catheter. REPRODUCTIVE ORGANS: No pelvic masses. ABDOMINAL WALL: Small umbilical hernia contains ascites. BONES: No acute or aggressive abnormality. CT/Abdomen/Pel W ORAL Cont Only IMPRESSION: Ascites with bilateral pleural effusions. Small bibasilar consolidations, atelectatic versus infectious. Cardiomegaly. Cholelithiasis. Individualized dose optimization techniques were used for this CT. at 0040 Reported and signed by: Maldonado Redding MD Electronically Signed: Maldonado Redding MD at 0:38 EDT Tel , Service support ,
[2020-11-28] MEDS: hydrOXYzine PAM 25 MG Capsule PO ×2 (16:51→20:35)
[2020-11-28 17:01] LABS: Bedside Glucose 69 mg/dL (70-110)
--- NOTE | 2020-11-28 17:24 | EX.PCM.CON.S ---
Assessment & Plan Assessment/Plan (1) Gallbladder sludge: (2) Elevated liver enzymes: PLAN: I think obtaining a HIDA scan with ejection fraction will be appropriate. In addition probably a CAT scan with oral contrast would be appropriate. Given her overall size MR BELTRAN would probably not be advisable at this time. I am not convinced that she has acute cholecystitis. HPI Consult Data Date of Consult: 11/28/20 HPI Narrative HPI Narrative: KENYATTA BARROW, is a 60 F who presents w/ PMHx: PAF, CAD s/p CABG and PCI, PAD, AOCD/Chronic anemia, ESRD on HD, Valvular Heart Disease s/p MVR, Chronic CHF Unclear Type, HTN, HLD, GERD who presents to the [facility] ED on 11/25/20 with history of ongoing substernal chest pain starting prior to arrival while at dialysis noted to be severe in nature, rated 6-10 out of 10 in severity with no radiation with unchanged chronic dyspnea on oxygen 2 L nasal cannula baseline with recent discontinuation of Eliquis 3 weeks prior secondary to severe nosebleeds. Patient does report that over the last month she has had worsening exertional dyspnea but no chest pain until current presentation. Patient does report that chest pain occurred when she was in the middle of dialysis and she did have some time that was remaining prior to transitioning for ED evaluation. Currently following sublingual nitroglycerin she rates pain 0 out of 10. She denies any recent specific worsening edema, weight gain or notable orthopnea. Work-up in the ED included T 97.6, heart rate 72, BP 138/65 initially with repeat 176/70, respiratory rate initially 20 noted to be 91% on room air with most recent respiratory rate 24, 95% on 2 L nasal cannula, CBC with WBC 13.3, hemoglobin 10.9, platelet 359 with left shift, BMP with sodium 134, potassium 2.7, chloride 93, BUN/creatinine 12/2.33, glucose 118, magnesium 2.2, troponin high-sensitivity 18.8, BNP 2154, chest x-ray with evidence of cardiomegaly, congestion consistent with CHF, small right pleural effusion with right basilar atelectasis, CTPA with no evidence of central or segmental pulmonary embolism, cardiomegaly with peribronchial thickening and interstitial prominence suggestive of fluid overload/CHF, right pleural effusion with evidence of upper abdominal ascites, right lower lobe atelectasis, moderate mediastinal adenopathy with no dominant serenity mass, EKG per EMS with prolonged QTC with sinus rhythm, repeat EKG QTC 450 with sinus rhythm with first-degree AV blocks with no acute evidence of ischemia, rapid Covid antigen negative. In the ED patient ministered Phenergan, potassium 20 mill equivalent p.o. x1, Zofran, nitroglycerin, morphine, Reglan, Dilaudid. Patient had a gallbladder ultrasound which showed normal distended gallbladder the wall measurement was 4 mm. She had a significant amount of ascites and pericholecystic fluid and sludge was seen in the gallbladder. Her common bile duct measured 6 mm. There was no mass seen at the head of the pancreas. Her total bilirubin is elevated at 2.9 with a direct of 2.44 her alkaline phosphatase is also elevated at 696 this is not significantly different from her admission liver function test. Her AST and ALT have remained normal. [facility] Medical History CAD (coronary artery disease) CHF (congestive heart failure) CKD (chronic kidney disease) CKD (chronic kidney disease) stage V requiring chronic dialysis Former tobacco use HTN (hypertension) Hyperlipidemia PAF (paroxysmal atrial fibrillation) Home Medications ascorbic acid (vitamin C) 500 mg PO DAILY 11/25/20 [History Last Taken 11/24/20] atorvastatin 40 mg PO DAILY 11/25/20 [History Last Taken 11/24/20] cholecalciferol (vitamin D3) 125 mcg PO DAILY 11/25/20 [History Last Taken 11/24/20] furosemide 20 mg PO DAILY 11/25/20 [History Last Taken 11/24/20] furosemide 40 mg PO BID 11/25/20 [History Last Taken 11/24/20] hydralazine 50 mg PO TID 11/25/20 [History Last Taken 11/25/20] hydroxyzine HCl 25 mg PO TID 11/25/20 [History Last Taken 11/25/20] insulin lispro [Humalog U-100 Insulin] 11/25/20 [History Last Taken Unknown] metoprolol succinate 50 mg PO BID 11/25/20 [History Last Taken 11/25/20] omeprazole 40 mg PO DAILY 11/25/20 [History Last Taken 11/24/20] ondansetron HCl 4 mg PO PRN PRN 11/25/20 [History Last Taken 11/25/20] Allergy/AdvReac Type Severity Reaction Status Date / Time amoxicillin Allergy Hives Verified 11/25/20 11:39 benzonatate Allergy Hives Verified 11/25/20 11:39 [From Tessalon Perles] lansoprazole [From Prevacid] Allergy Other Verified 11/25/20 11:39 latex Allergy Hives Verified 11/25/20 11:39 Penicillins Allergy Hives Verified 11/25/20 11:39 Family History Mother Hypertension Diabetes Heart disease Father Heart disease Hypertension Diabetes Kidney disease Surgical History History of appendectomy History of arteriovenous graft History of heart artery stent History of mitral valve replacement Hx of CABG Social History household members: spouse Smoking Status: Former smoker how long ago did patient quit smoking: Quit 4 years prior, smoked 1 ppd cig tob since teenager. alcohol intake: never substance use type: does not use ROS Constitutional Constitutional: Denies chills or fever(s) Cardiovascular Cardiovascular: Reports chest pain and chest pain at rest Respiratory/Chest Respiratory/Chest: Denies cough Gastrointestinal Gastrointestinal: Reports abdominal pain, nausea and vomiting; Denies melena or rectal bleeding Physical Exam Const alert and oriented x3 General Appearance: cooperative HEENT normocephalic and head/scalp atraumatic Eyes PERRL and EOMs intact bilaterally Resp Auscultation: diminished lung sounds Cardio Rate: regular rate Rhythm: regular rhythm GI soft to palpation Palpation: tender epigastric and ascites Medical Records Data Medical Nutrition Assessment Dietitian: Malnutrition Criteria Met Start: 11/25/20 17:20 Freq: Status: Active Protocol: Document 11/25/20 17:32 SHARAD (Rec: 11/25/20 17:32 SHARAD [id number]) Nutrition Malnutrition Evidence of Malnutrition Exists No Intake Problem Inadequate Oral Intake Etiology related to nausea Signs/Symptoms as evidenced by poor po intake x 2 wks prior to admission. Status Active Problem Clinical Problem Altered Nutrient-Related Laboratory Values Etiology related to renal/endocrine dysfunction Signs/Symptoms as evidenced by Na 134, K 2.7, Cr 2.33, gluc 118 Status Active Problem Recommendation Dietitian Recommendations/Changes Will change diet to Consistent CHO/ Sodium Restriction / 1500 ml fluid/day Will provide 120 ml Nepro CHO Steady w/ meals for increased nutrition if consumed Lab / Micro Data Result Diagrams: 11/28/20 04:50 11/28/20 04:50 Labs: Laboratory Results - last 24 hr 11/26/20 07:37: Diff Path Review Reviewed 11/27/20 03:36: Diff Path Review Reviewed 11/27/20 21:19: POC Glucose 121 H 11/28/20 04:50: WBC 13.2 H, RBC 3.54 L, Hgb 10.2 L, Hct 32.0 L, MCV 90.4, MCH 28.8, MCHC 31.9 L, RDW Std Deviation 64.3 H, RDW Coeff of Grazyna 20.0 H, Plt Count 300, MPV 10.6, Immature Gran % (Auto) 0.600, Neut % (Auto) 77.8 H, Lymph % (Auto) 6.1 L, [place] % (Auto) 12.3 H, Eos % (Auto) 2.8, Baso % (Auto) 0.4, Absolute Neuts (auto) 10.3 H, Absolute Lymphs (auto) 0.80 L, Nucleated RBC % 0.2, Diff Path Review Reviewed, Anisocytosis 1+ 11/28/20 04:50: Sodium 130 L, Potassium 4.6, Chloride 91 L, Carbon Dioxide 30.0, Anion Gap 9, BUN 40 H, Creatinine 5.55 H, Estim Creat Clear Calc 10.98, Est GFR (MDRD) Af Amer 10 L, Est GFR (MDRD) Non-Af 8 L, BUN/Creatinine Ratio 7.2 L, Glucose 92, Calcium 9.1 11/28/20 05:11: POC Glucose 104 11/28/20 10:55: Urine Color Yellow, Urine Clarity Cloudy, Urine pH 5.0, Ur Specific [place] 1.015, Urine Protein 100 H, Urine Glucose (UA) Normal, Urine Ketones 5 H, Urine Occult Blood 150 H, Urine Nitrite Negative, Urine Bilirubin 3 H, Urine Urobilinogen 1 H, Ur Leukocyte Esterase 500 H, Urine RBC 5-10 SEEN, Urine WBC 5-10 SEEN, Ur Squamous Epith Cells 0-5 SEEN, Urine Bacteria 2+, Urine Mucus 0 SEEN 11/28/20 11:54: POC Glucose 82 11/28/20 12:46: Total Bilirubin 2.90 H, Direct Bilirubin 2.44 H, AST 37, ALT 20, Alkaline Phosphatase 696 H, Total Protein 8.3 H, Albumin 2.5 L, Globulin 5.8 H 11/28/20 12:46: Ammonia < 10.0 L 11/28/20 12:46: PT 15.4 H, INR 1.3 11/28/20 12:46: Troponin I High Sens 18.8 11/28/20 16:45: POC Glucose 69 L Radiology Impression Gallbladder Ultrasound 11/28/20 12:17 IMPRESSION: Ascites. Mild hepatomegaly and diffuse fatty infiltration of the liver. Sludge is seen within the gallbladder lumen. Electronically Signed: Micah Zelaya MD at 14:27 EDT , Service support ,
--- NOTE | 2020-11-28 20:12 | NURSING ---
Pandemic Documentation 11/28/20 19:00
[2020-11-28] MEDS: hydrALAZINE 50 MG Tablet PO (20:35)
[2020-11-28 22:26] LABS: Bedside Glucose 102 mg/dL (70-110)
[2020-11-29] VITALS (16 sets, daily range): BP systolic 114–138; BP diastolic 48–85; PULSE 64–73; RESP 16–18; TEMP 36.1–36.8; O2SAT 93–96
[2020-11-29 03:41] LABS: Bedside Glucose 67 mg/dL (70-110)
[2020-11-29 03:41] LABS: Bedside Glucose 86 mg/dL (70-110)
[2020-11-29] MEDS: hydrOXYzine PAM 25 MG Capsule PO ×3 (05:40→21:50)
--- NOTE | 2020-11-29 05:40 | NURSING ---
Pt refused Apresoline this morning, states she doesn't take it at home if her blood pressure is below 130.
[2020-11-29] MEDS: 0.9% Saline Lock 10 ML Syringe IV ×5 (05:42→18:23)
--- NOTE | 2020-11-29 05:57 | NURSING ---
Called radiology to see if pt has a time scheduled for hida scan, technical analyst states that pt is on her work list but no time, will have to call back when Nuc med comes in at 0700. Info relayed to pt, she states she is ok to remain npo for now until we find out what time the scan is scheduled for.
[2020-11-29 06:37] LABS: Absolute Lymphocyte Count 0.72 X10^3/uL (0.83-4.51); Absolute Neutrophil Count 8.8 X10^3/uL (2.0-7.7); Basophil# 0.07 X10^3/uL; Basophil% 0.6 % (0-1); Eosinophil# 0.22 X10^3/uL; Eosinophils% 1.9 % (0-5); Hematocrit 30.9 % (37-47); Hemoglobin 9.9 g/dL (12.0-15.0); Lymphocyte # 0.72 X10^3/ul (0.83-4.51); Lymphocyte % 6.3 % (19-41); Mean Corpuscular Hgb 28.1 pg (27.0-32.0); Mean Corpuscular Volume 87.8 fL (81-99); Mean Platelet Vol. 10.3 fl (6.2-12.0); Monocyte# 1.53 X10^3/uL; Monocyte% 13.5 % (0-10); NRBC Flagged by Analyzer 0.2 % (0-5); Neutrophil # 8.75 X10^3/uL (2.7-7.7); Neutrophil % 77.2 % (47-70); POSITIVE DIFFERENTIAL YES; Platelet Count 293 K/mm3 (150-450); RBC Distribution Width SD 61.9 fl (35.1-43.9); Red Blood Count 3.52 M/mm3 (4.2-5.4); White Blood Count 11.4 K/mm3 (4.4-11.0)
[2020-11-29 06:42] LABS: Differential Indicated SCAN CRITERIA MET
[2020-11-29 06:55] LABS: Bedside Glucose 97 mg/dL (70-110)
[2020-11-29 06:57] LABS: Ammonia < 10.0 umol/L (11-32)
[2020-11-29 07:00] LABS: Anion Gap 6 (5-15); BUN 28 mg/dL (7-18); BUN/Creat Ratio 6.7 RATIO (10-20); Calcium,Total 8.3 mg/dL (8.5-10.1); Chloride 94 mmol/L (98-107); Creatinine, Serum 4.15 mg/dL (0.55-1.02); EST Glomerular Filtration Rate 12 mL/min (>60); Est Glom Filt Rate - Afr Amer 14 mL/min (>60); Estimated Creatinine Clearance 14.69 ml/min; Glucose 93 mg/dL (74-106); Potassium 4.5 mmol/L (3.5-5.1); Sodium Level 130 mmol/L (136-145)
[2020-11-29 07:02] LABS: Target Cells 1+
--- NOTE | 2020-11-29 09:00 | NM_ITS ---
STUDY: HEPATOBILARY SCINTGRAPHY REASON FOR EXAM: Female, 60 years old. Abdominal pain COMPARISON STUDIES : NM - None. CR - Not available for review at this time. CT - Not available for review at this time. MR - Not available for review at this time. Technique: After the administration of 5.7 mCi of technetium 99m Choletec intravenously, multiple scintigraphic images of the abdomen were obtained.. Findings: Homogeneous uptake of radiopharmaceutical throughout the hepatic parenchyma. Delayed excretion into the biliary tree first seen on the 60 minute image. Nonvisualization of the gallbladder.. Passage of radiopharmaceutical from the biliary tree into the small bowel ensuring patency of the common bile duct. NM/Hepatobilliary Img w/Pharm Int IMPRESSION: Nonvisualization of gallbladder. Differential diagnosis includes recent meal, prolonged fasting, acute cholecystitis, or chronic cholecystitis. Electronically Signed: Alfred Ricardo MD at 11:06 EDT Tel , Service support ,
[2020-11-29] MEDS: Cholecalciferol (VIT D3) 25 MCG TABLET (1,000 UNITS) 125 MCG PO (11:01)
[2020-11-29] MEDS: Pantoprazole Sodium 40 MG Tablet PO (11:01)
[2020-11-29] MEDS: Ascorbic Acid 500 MG Tablet PO (11:01)
[2020-11-29] MEDS: Aspirin E.C. 81 MG Tablet PO (11:01)
[2020-11-29] MEDS: Furosemide 40 MG/4 ML Vial IV ×2 (11:02→18:23)
[2020-11-29] MEDS: Metoprolol(XL)Succ 50 MG Tablet PO ×2 (11:02→21:49)
[2020-11-29] MEDS: Lidocaine 5% Patch 1 PATCH TOPICAL (11:03)
--- NOTE | 2020-11-29 11:13 | US_ITS ---
PROCEDURE: ULTRASOUND GUIDED THORACENTESIS. DATE: 11/29/2020.. INDICATION: Female, 60 years old. Right pleural effusion. PHYSICIAN: Micah Zelaya M.D. PROCEDURE: The risks, benefits, and alternatives to the procedure were explained to the patient. The specific risks of bleeding, infection, and pneumothorax requiring chest tube insertion were discussed and accepted. Written informed consent was obtained. Ultrasonographic evaluation of the right lower pleural space was carried out. An adequate pocket was identified. The patient was placed in the sitting, upright position. The overlying skin was prepped and draped in sterile fashion. 1% lidocaine was administered subcutaneously for local anesthesia. Under ultrasound guidance, a 5French thoracentesis needle/catheter system was advanced into the right posterior lower pleural fluid collection. Approximately 4 mL of keanu-colored fluid was drained. The catheter was removed, and a sterile dressing was applied. A specimen was collected and sent to the laboratory for analysis, as requested by the referring clinician. The patient tolerated the procedure well. A chest x-ray was ordered. US/Thoracentesis W US IMPRESSION: Ultrasound-guided right thoracentesis. Electronically Signed: Micah Zelaya MD at 15:16 EDT , Service support ,
--- NOTE | 2020-11-29 11:18 | PN.SURG_ITS ---
Subjective Subjective No real change in subjective criteria today. Still having some abdominal discomfort bloated. No nausea or vomiting. Objective Data Objective Data No rebound guarding or peritoneal signs are identified. Vital Signs: Vital Signs Temp Pulse Resp BP Pulse Ox 98.2 F 64 16 114/48 L 94 11/29/20 09:06 11/29/20 11:02 11/29/20 09:06 11/29/20 09:06 11/29/20 09:06 Oxygen Flow Rate (L/min) 3.5 Oxygen Delivery Method Nasal Cannula Weight: 195 lb 5.273 oz Body Mass Index (BMI) 29.5 Intake & Output: Intake and Output for Last 24 Hours 11/27/20 11/28/20 11/29/20 23:59 23:59 23:59 Intake Total 864 / 864 1480 / 1480 50 / 50 Output Total 90 / 90 230 / 230 Balance 774 / 774 1250 / 1250 50 / 50 Medical Nutrition Assessment Dietitian: Malnutrition Criteria Met Start: 11/25/20 17:20 Freq: Status: Active Protocol: Document 11/25/20 17:32 SHARAD (Rec: 11/25/20 17:32 SLA [id number]) Nutrition Malnutrition Evidence of Malnutrition Exists No Intake Problem Inadequate Oral Intake Etiology related to nausea Signs/Symptoms as evidenced by poor po intake x 2 wks prior to admission. Status Active Problem Clinical Problem Altered Nutrient-Related Laboratory Values Etiology related to renal/endocrine dysfunction Signs/Symptoms as evidenced by Na 134, K 2.7, Cr 2.33, gluc 118 Status Active Problem Recommendation Dietitian Recommendations/Changes Will change diet to Consistent CHO/ Sodium Restriction / 1500 ml fluid/day Will provide 120 ml Nepro CHO Steady w/ meals for increased nutrition if consumed Lab / Micro Data Result Diagrams: 11/29/20 06:25 11/29/20 06:25 Labs: Laboratory Results - last 24 hr 11/26/20 07:37: Diff Path Review Reviewed 11/27/20 03:36: Diff Path Review Reviewed 11/28/20 04:50: Diff Path Review Reviewed 11/28/20 10:55: Urine Color Yellow, Urine Clarity Cloudy, Urine pH 5.0, Ur Specific [place] 1.015, Urine Protein 100 H, Urine Glucose (UA) Normal, Urine Ketones 5 H, Urine Occult Blood 150 H, Urine Nitrite Negative, Urine Bilirubin 3 H, Urine Urobilinogen 1 H, Ur Leukocyte Esterase 500 H, Urine RBC 5-10 SEEN, Urine WBC 5-10 SEEN, Ur Squamous Epith Cells 0-5 SEEN, Urine Bacteria 2+, Urine Mucus 0 SEEN 11/28/20 11:54: POC Glucose 82 11/28/20 12:46: Total Bilirubin 2.90 H, Direct Bilirubin 2.44 H, AST 37, ALT 20, Alkaline Phosphatase 696 H, Total Protein 8.3 H, Albumin 2.5 L, Globulin 5.8 H 11/28/20 12:46: Ammonia < 10.0 L 11/28/20 12:46: PT 15.4 H, INR 1.3 11/28/20 12:46: Troponin I High Sens 18.8 11/28/20 16:45: POC Glucose 69 L 11/28/20 20:31: POC Glucose 102 11/29/20 02:37: POC Glucose 67 L 11/29/20 03:36: POC Glucose 86 11/29/20 06:25: WBC 11.4 H, RBC 3.52 L, Hgb 9.9 L, Hct 30.9 L, MCV 87.8, MCH 28.1, MCHC 32.0, RDW Std Deviation 61.9 H, RDW Coeff of Grazyna 20.0 H, Plt Count 293, MPV 10.3, Immature Gran % (Auto) 0.500, Neut % (Auto) 77.2 H, Lymph % (Auto) 6.3 L, [place] % (Auto) 13.5 H, Eos % (Auto) 1.9, Baso % (Auto) 0.6, Absolute Neuts (auto) 8.8 H, Absolute Lymphs (auto) 0.72 L, Nucleated RBC % 0.2, Diff Path Review August, Target Cells 1+ 11/29/20 06:25: Sodium 130 L, Potassium 4.5, Chloride 94 L, Carbon Dioxide 30.0, Anion Gap 6, BUN 28 H, Creatinine 4.15 H, Estim Creat Clear Calc 14.69, Est GFR (MDRD) Af Amer 14 L, Est GFR (MDRD) Non-Af 12 L, BUN/Creatinine Ratio 6.7 L, Glucose 93, Calcium 8.3 L 11/29/20 06:25: Ammonia < 10.0 L 11/29/20 06:50: POC Glucose 97 Micro: Microbiology 11/25/20 12:02 Mucosa - Nose SARS-CoV-2 Antigen (Rapid) - Final Radiography Diagnostic Testing: Radiology Impression Gallbladder Ultrasound 11/28/20 12:17 IMPRESSION: Ascites. Mild hepatomegaly and diffuse fatty infiltration of the liver. Sludge is seen within the gallbladder lumen. Electronically Signed: Micah Zelaya MD at 14:27 EDT , Service support , Abdomen CT 11/28/20 16:44 IMPRESSION: Ascites with bilateral pleural effusions. Small bibasilar consolidations, atelectatic versus infectious. Cardiomegaly. Cholelithiasis. Individualized dose optimization techniques were used for this CT. at 0040 Reported and signed by: Maldonado Redding MD Electronically Signed: Maldonado Redding MD at 0:38 EDT Tel , Service support , Hepatobiliary Scan Nuclear Medicine 11/29/20 09:00 IMPRESSION: Nonvisualization of gallbladder. Differential diagnosis includes recent meal, prolonged fasting, acute cholecystitis, or chronic cholecystitis. Electronically Signed: Alfred Ricardo MD at 11:06 EDT Tel , Service support , Assessment & Plan Assessment/Plan (1) Elevated liver enzymes: (2) Gallbladder sludge: PLAN: CAT scan showed some significant ascites which more likely should be aspirated with a paracentesis and evaluated. HIDA scan did not show any gallbladder filling. She does not have acute peritoneal signs in the right upper quadrant and I doubt if this is acute cholecystitis that were dealing w ith. In addition the patient has significant pleural effusions which more likely are going to have to be addressed at some point. Patient is not a good surgical candidate at this time
[2020-11-29 11:21] LABS: Bedside Glucose 77 mg/dL (70-110)
--- NOTE | 2020-11-29 12:00 | PN.HOSP_ITS ---
Subjective Subjective Patient seen and examined. She still feels weak. SHe denies any fever or chills, abdominal pain or shortness of breath. Review of systems is otherwise negative. General surgery was consulted yesterday due to concerns for choleycystitis.She is for HIDA scan today. She has remained hemodynamically stable. Wbc is now trending down to 11.4. Objective Data Objective Data Vital Signs: Vital Signs Temp Pulse Resp BP Pulse Ox 97.6 F L 69 16 136/56 H 96 11/29/20 11:38 11/29/20 11:38 11/29/20 11:38 11/29/20 11:38 11/29/20 11:38 Oxygen Flow Rate (L/min) 3.5 Oxygen Delivery Method Nasal Cannula Weight: 195 lb 5.273 oz Body Mass Index (BMI) 29.5 Intake & Output: Intake and Output for Last 24 Hours 11/27/20 11/28/20 11/29/20 23:59 23:59 23:59 Intake Total 864 / 864 1480 / 1480 250 / 250 Output Total 90 / 90 230 / 230 50 / 50 Balance 774 / 774 1250 / 1250 200 / 200 Medical Nutrition Assessment Dietitian: Malnutrition Criteria Met Start: 11/25/20 17:20 Freq: Status: Active Protocol: Document 11/25/20 17:32 SHARAD (Rec: 11/25/20 17:32 SHARAD [id number]) Nutrition Malnutrition Evidence of Malnutrition Exists No Intake Problem Inadequate Oral Intake Etiology related to nausea Signs/Symptoms as evidenced by poor po intake x 2 wks prior to admission. Status Active Problem Clinical Problem Altered Nutrient-Related Laboratory Values Etiology related to renal/endocrine dysfunction Signs/Symptoms as evidenced by Na 134, K 2.7, Cr 2.33, gluc 118 Status Active Problem Recommendation Dietitian Recommendations/Changes Will change diet to Consistent CHO/ Sodium Restriction / 1500 ml fluid/day Will provide 120 ml Nepro CHO Steady w/ meals for increased nutrition if consumed Lab / Micro Data Result Diagrams: 11/29/20 06:25 11/29/20 06:25 Labs: Laboratory Results - last 24 hr 11/26/20 07:37: Diff Path Review Reviewed 11/27/20 03:36: Diff Path Review Reviewed 11/28/20 04:50: Diff Path Review Reviewed 11/28/20 10:55: Urine Color Yellow, Urine Clarity Cloudy, Urine pH 5.0, Ur Specific Alliance 1.015, Urine Protein 100 H, Urine Glucose (UA) Normal, Urine Ketones 5 H, Urine Occult Blood 150 H, Urine Nitrite Negative, Urine Bilirubin 3 H, Urine Urobilinogen 1 H, Ur Leukocyte Esterase 500 H, Urine RBC 5-10 SEEN, Urine WBC 5-10 SEEN, Ur Squamous Epith Cells 0-5 SEEN, Urine Bacteria 2+, Urine Mucus 0 SEEN 11/28/20 11:54: POC Glucose 82 11/28/20 12:46: Total Bilirubin 2.90 H, Direct Bilirubin 2.44 H, AST 37, ALT 20, Alkaline Phosphatase 696 H, Total Protein 8.3 H, Albumin 2.5 L, Globulin 5.8 H 11/28/20 12:46: Ammonia < 10.0 L 11/28/20 12:46: PT 15.4 H, INR 1.3 11/28/20 12:46: Troponin I High Sens 18.8 11/28/20 16:45: POC Glucose 69 L 11/28/20 20:31: POC Glucose 102 11/29/20 02:37: POC Glucose 67 L 11/29/20 03:36: POC Glucose 86 11/29/20 06:25: WBC 11.4 H, RBC 3.52 L, Hgb 9.9 L, Hct 30.9 L, MCV 87.8, MCH 28.1, MCHC 32.0, RDW Std Deviation 61.9 H, RDW Coeff of Grazyna 20.0 H, Plt Count 293, MPV 10.3, Immature Gran % (Auto) 0.500, Neut % (Auto) 77.2 H, Lymph % (Auto) 6.3 L, Larue % (Auto) 13.5 H, Eos % (Auto) 1.9, Baso % (Auto) 0.6, Absolute Neuts (auto) 8.8 H, Absolute Lymphs (auto) 0.72 L, Nucleated RBC % 0.2, Diff Path Review August, Target Cells 1+ 11/29/20 06:25: Sodium 130 L, Potassium 4.5, Chloride 94 L, Carbon Dioxide 30.0, Anion Gap 6, BUN 28 H, Creatinine 4.15 H, Estim Creat Clear Calc 14.69, Est GFR (MDRD) Af Amer 14 L, Est GFR (MDRD) Non-Af 12 L, BUN/Creatinine Ratio 6.7 L, Glucose 93, Calcium 8.3 L 11/29/20 06:25: Ammonia < 10.0 L 11/29/20 06:50: POC Glucose 97 11/29/20 11:11: POC Glucose 77 Micro: Microbiology 11/25/20 12:02 Mucosa - Nose SARS-CoV-2 Antigen (Rapid) - Final Radiography Diagnostic Testing: Radiology Impression Gallbladder Ultrasound 11/28/20 12:17 IMPRESSION: Ascites. Mild hepatomegaly and diffuse fatty infiltration of the liver. Sludge is seen within the gallbladder lumen. Electronically Signed: Micah Zelaya MD at 14:27 EDT , Service support , Abdomen CT 11/28/20 16:44 IMPRESSION: Ascites with bilateral pleural effusions. Small bibasilar consolidations, atelectatic versus infectious. Cardiomegaly. Cholelithiasis. Individualized dose optimization techniques were used for this CT. at 0040 Reported and signed by: Maldonado Redding MD Electronically Signed: Maldonado Redding MD at 0:38 EDT Tel , Service support , Hepatobiliary Scan Nuclear Medicine 11/29/20 09:00 IMPRESSION: Nonvisualization of gallbladder. Differential diagnosis includes recent meal, prolonged fasting, acute cholecystitis, or chronic cholecystitis. Electronically Signed: Alfred Ricardo MD at 11:06 EDT Tel , Service support , Physical Exam Const alert, oriented x3 and no apparent distress Constitutional Narrative: looks very frail and weak Exam Limitations: no limitations HEENT head/scalp atraumatic, moist oral mucous membranes and oropharynx normal Head and Scalp: normocephalic Eyes PERRL, EOMs intact bilaterally and conjunctivae normal Neck no lymphadenopathy Resp Resp Narrative: diminished breath sounds bibasally, no wheezes or crackles. on 3L of oxygen. Cardio regular rate, regular rhythm, S1 normal heart sound, S2 normal heart sound and no murmurs GI normal to inspection, nondistended, normoactive bowel sounds, soft to palpation, non-tender and non-distended Extremity normal to inspection and full ROM Extremity Narrative: AV fistula with good thrill in LUE; 1+ bipedal pitting edema Peripheral Pulses: Yes pulses 2+ throughout Skin no rashes or lesions noted Neuro oriented x3, CN's II-XII intact bilaterally and moves all extremities Sensorium / Orientation: awake and alert Psych affect normal Assessment & Plan Assessment/Plan (1) ESRD (end stage renal disease) on dialysis: (2) CHF exacerbation: QUALIFIERS: Heart failure type: unspecified Qualified Code(s): I50.9 - Heart failure, unspecified (3) Hypoxia: PLAN: #acute on chronic heart failure with preserved EF * patient now feeling better respiratory-castro. * on IV lasix * nephrology on board for diuresis. * still does have some lower extremity edema * Chest CTA showed showed a moderate right sided pleural effusion * abdominopelvic CT showed ascites with bilateral pleural effusion, and small bibasilar consolidations, most likely atelectatic vs infectious * monitor intake and output. Fluid restriction to 1500cc daily. * to have thoracentesis today as she still has right sided pleural effusion * #Suspected acute cholecystitis * liver profile pending today * gallbladder USG showed mild hepatomegaly and diffuse fatty infiltration of the liver, with sludge in the gallbladder lumen. * general surgery consulted; doesnt think it is acute cholecystitis * HIDA scan done today showed non-visualisation of the gallbladder. * started on IV zosyn. Blood cultures pending. * #Chronic respiratory failure * due to heart failure and right pleural effusion. * on 2L of oxygen at home; currently on 3L of oxygen. * diagnostic thoracentesis ordered as patient still has a right sided pleural effusion * #Right sided pleural effusion * chest CTA showed right pleural effusion * abdominopelvic CT showed ascites with bilateral pleural effusion * small bibasilar consolidations. * diagnostic thoracentesis ordered. This may be due to heart failure and ESRD. * #Ascites * as per CT scan. This may be due to ESRD. * diagnostic paracentesis ordered * #Hypokalemia:resolved. #ESRD on hemodialysis * has dialysis MWF. * nephrology on board. * #CAD: s/p stents. on aspirin, statin and metoprolol. #History of Mitral ema regurgitation; stable #Hypertension; on metoprolol and hydralazine. #Hyperlipidemia: on statin #paroxysmal afib: on metoprolol. Eliquis on hold due to history of nose bleeds. #GERD: on PPI DVT prophylaxis: heparin Charges/Coding Visit Charges Inpatient E&M: 81397 Subs Hosp L3
[2020-11-29 12:41] LABS: Pathologist Review Reviewed
[2020-11-29 13:10] LABS: AST(SGOT) 68 U/L (15-37); Alanine Aminotransfer ALT/SGPT 26 U/L (13-56); Albumin, Serum 2.1 g/dL (3.2-5.0); Alkaline Phosphatase 769 U/L (45-117); Globulin 5.4 g/dL (2.2-4.2); Protein, Total 7.5 g/dL (6.4-8.2)
--- NOTE | 2020-11-29 14:38 | RAD_ITS ---
STUDY: X-RAY CHEST REASON FOR EXAM: Female, 60 years old. Post thora TECHNIQUE: AP inspiration and expiration views. COMPARISON: Comparison is made with prior study dated 11/25/2020. FINDINGS: The patient is status post right thoracentesis. There is no evidence of pneumothorax. Mild residual blunting of the right costophrenic angle persists. RAD/Chest Insp/Exp 2 View IMPRESSION: Status post right thoracentesis. There is no evidence of pneumothorax. Electronically Signed: Micah Zelaya MD at 14:51 EDT , Service support ,
--- NOTE | 2020-11-29 14:38 | FLU_PTH ---
PATIENT: KENYATTA BARROW LOC: [facility] U#:[id number] AGE/SX: 60/F ROOM: [facility] RE11/25/[address]: Dr. Ann Aguilar DO : 1960 BED: 1 DIS: 12/06/2020 SPEC #: [id number] RECD: 11/29/20 14:57 STATUS: MILLICENT REXiomara #: [id number] LAURA: 11/29/20 14:[address]: Tisha Rogers DEPT: CYTOLOGY RECD BY: Parisa Tabor ENTERED: 11/30/20 06:55 SP TYPE: Fluid OTHR DR: MD Dr. Morris Tatum MD Dr. Joey Romar, DO Dr. Natthavat Tanphaichitr, MD Tissues: Pleural fluid, NOS Procedures: Special Stain Group II Surgery Specimen Level IV Cytospin Fluid HEADER OPERATION: Ultrasound-guided thoracentesis PRE-OP DIAGNOSIS: Pleural effusion TISSUE SUBMITTED: Thoracentesis fluid for cytology DIAGNOSIS CYTOLOGY Thoracentesis fluid for cytology (cytospin and cell block): Negative for malignant cells. Bloody specimen. ANAHY:antonette 12/01/2020 COMMENT Please also correlate with additional cytology specimen ([id number]) paracentesis fluid for cytology with diagnosis of ?negative for malignant cells.? CYTOLOGY STUDY Slides are reviewed. CYTOLOGY GROSS Received is 90 ml of dark keanu cloudy fluid labeled with the patient's name and and designated per the requisition as thoracentesis. Submitted for cytology preparation including cell block. / antonette 11/30/2020 TC:5 CPT: 41716, 19013
[2020-11-29] MEDS: Lidocaine 2% (20 ml mdv) 20 ML Vial (15:04)
[2020-11-29] MEDS: Morphine 2 MG/ML Syringe IV (15:08)
[2020-11-29 15:16] LABS: Bedside Glucose 69 mg/dL (70-110)
[2020-11-29] MEDS: Lidocaine 2% (20 ml mdv) 20 ML Vial 10 ML INFILT (15:21)
[2020-11-29 16:06] LABS: Body Fluid Mononuclear WBC # 0.113 10^3/uL; Body Fluid Mononuclear WBC % 65.7 %; Body Fluid Polynuclear WBC # 0.059 10^3/uL; Body Fluid Polynuclear WBC % 34.3 %; Body Fluid Total Cells Counted 0.177 10^3/ul; Red Cell Count/Body Fluid 0.005 10^6/ul; White Blood Count/Body Fluid 0.172 10^3/uL
[2020-11-29 16:09] LABS: Auto B Fluid Analyzer BKGD Ct COUNTS W/IN LIMITS (W/IN LIMITS); Color/Body Fluid YELLOW; Source- Body Fluid THORACENTESIS
--- NOTE | 2020-11-29 16:19 | CASEMGMT ---
Palliative screening tool completed for L[facility]Str[facility] 3. Patient meets criteria for palliative consult. Hospitalist updated and no consult at this time.
[2020-11-29 16:26] LABS: Appearance/Body Fluid CLOUDY
[2020-11-29 17:43] LABS: Lymphocytes 33 %; Monocytes 35 %; Neutrophil (Segs) 32 %
[2020-11-29 17:43] LABS: Glucose, Body Fluid 69 mg/dL (40-70); LDH,Body Fluid 169 Units/l (Not Establ.); Protein, Body Fluid 2.8 g/dL (Not Establ.)
[2020-11-29 17:44] LABS: Body Fluid QC Type(s) BF2Q
[2020-11-29] MEDS: Ondansetron 4 MG/2 ML Vial IV (18:23)
--- NOTE | 2020-11-29 20:45 | NURSING ---
Pandemic documentation initiated 0n 11/29/20 @ 3638
[2020-11-29 21:55] LABS: Bedside Glucose 74 mg/dL (70-110)
[2020-11-30] VITALS (17 sets, daily range): BP systolic 111–149; BP diastolic 46–61; PULSE 67–74; RESP 14–20; TEMP 36.6–36.8; O2SAT 90–98
--- NOTE | 2020-11-30 | FLU_PTH ---
PATIENT: KENYATTA BARROW LOC: [facility] U#:[id number] AGE/SX: 60/F ROOM: [facility] RE11/25/[address]: Dr. Ann Aguilar DO : 1960 BED: 1 DIS: 12/06/2020 SPEC #: [id number] RECD: 11/30/20 11:32 STATUS: MILLICENT REXiomara #: [id number] LAURA: 11/30/20 00:[address]: Tisha Rogers DEPT: CYTOLOGY RECD BY: Parisa Tabor ENTERED: 11/30/20 13:28 SP TYPE: Fluid OTHR DR: MD Dr. Morris Tatum MD Dr. Joey Romar, DO Dr. Natthavat Tanphaichitr, MD Tissues: PARACENTESIS FLUID Procedures: Special Stain Group II Surgery Specimen Level IV Cytospin Fluid HEADER OPERATION: Ultrasound-guided paracentesis PRE-OP DIAGNOSIS: Ascites TISSUE SUBMITTED: Paracentesis fluid for cytology DIAGNOSIS CYTOLOGY Paracentesis fluid for cytology (cytospin and cell block): Negative for malignant cells. Bloody specimen. SJ:antonette 12/01/2020 COMMENT Please make reference to additional specimen ([id number]) thoracentesis fluid for cytology with diagnosis of ?negative for malignant cells.? CYTOLOGY STUDY Slides are reviewed. CYTOLOGY GROSS Received is 90 ml of gold cloudy fluid labeled with the patient's name and and designated per the requisition as paracentesis. Submitted for cytology preparation including cell block. / antonette 11/30/2020 TC:5 CPT: 78361, 64571
[2020-11-30 01:26] LABS: Bedside Glucose 111 mg/dL (70-110)
[2020-11-30] MEDS: Morphine 2 MG/ML Syringe IV (03:02)
[2020-11-30] MEDS: 0.9% Saline Lock 10 ML Syringe IV ×2 (03:03→18:16)
[2020-11-30 05:09] LABS: Absolute Lymphocyte Count 0.94 X10^3/uL (0.83-4.51); Absolute Neutrophil Count 9.1 X10^3/uL (2.0-7.7); Basophil# 0.07 X10^3/uL; Basophil% 0.6 % (0-1); Eosinophil# 0.16 X10^3/uL; Eosinophils% 1.3 % (0-5); Hematocrit 31.3 % (37-47); Hemoglobin 10.1 g/dL (12.0-15.0); Lymphocyte # 0.94 X10^3/ul (0.83-4.51); Lymphocyte % 7.9 % (19-41); Mean Corp Hgb Conc 32.3 g/dL (32-36); Mean Corpuscular Hgb 28.1 pg (27.0-32.0); Mean Corpuscular Volume 87.2 fL (81-99); Mean Platelet Vol. 10.8 fl (6.2-12.0); Monocyte# 1.51 X10^3/uL; Monocyte% 12.7 % (0-10); NRBC Flagged by Analyzer 0 % (0-5); Neutrophil # 9.12 X10^3/uL (2.7-7.7); Neutrophil % 76.8 % (47-70); POSITIVE DIFFERENTIAL YES; POSITIVE MORPHOLOGY YES; Platelet Count 313 K/mm3 (150-450); RBC Distribution Width CV 20.1 % (11.6-14.6); RBC Distribution Width SD 61.1 fl (35.1-43.9); Red Blood Count 3.59 M/mm3 (4.2-5.4); White Blood Count 11.9 K/mm3 (4.4-11.0)
[2020-11-30 05:29] LABS: Anion Gap 10 (5-15); BUN 33 mg/dL (7-18); BUN/Creat Ratio 6.5 RATIO (10-20); Calcium,Total 8.7 mg/dL (8.5-10.1); Chloride 91 mmol/L (98-107); Creatinine, Serum 5.09 mg/dL (0.55-1.02); EST Glomerular Filtration Rate 9 mL/min (>60); Est Glom Filt Rate - Afr Amer 11 mL/min (>60); Estimated Creatinine Clearance 11.98 ml/min; Glucose 155 mg/dL (74-106); Sodium Level 128 mmol/L (136-145)
[2020-11-30 05:31] LABS: Differential Indicated SCAN CRITERIA MET
[2020-11-30 05:32] LABS: Target Cells 2+
[2020-11-30] MEDS: hydrALAZINE 50 MG Tablet PO (06:59)
[2020-11-30] MEDS: hydrOXYzine PAM 25 MG Capsule PO ×3 (07:00→19:33)
[2020-11-30 07:01] LABS: Bedside Glucose 158 mg/dL (70-110)
[2020-11-30 07:42] LABS: LDH 270 U/L (84-246)
--- NOTE | 2020-11-30 09:17 | CASEMGMT ---
SW reviewed chart and noted patient is not doing well with therapy. SW met with patient. Introduced self and role at [facility]. SW asked patient if she still feels like she is going to be able to go home at discharge. She said she does not think so and the doctor told her she should go somewhere. SW gave patient a list of SNF providers including quality and resource use data and consistent with the patient?s preferred geographic region, medical needs, and insurance network. SW explained to patient that the facilities that are highlighted in pink are the ones that she has to choose from as they take her insurance. SW told her she just needs to pick 2 or 3 facilities and then SW will check to see if they can take her. SW told her SW will check back later today. Ana REYES
--- NOTE | 2020-11-30 09:30 | US_ITS ---
PROCEDURE: Ultrasound guided paracentesis. DATE OF EXAMINATION: 11/30/2020. INDICATION: Female, 60 years old. Ascites. PHYSICIAN: Micah Zelaya M.D. TECHNIQUE: The risks, benefits, and alternatives to the procedure were explained to the patient. The specific risks of bleeding, infection, and damage to bowel were detailed and accepted. Witnessed informed consent was obtained. The abdomen was ultrasonographically surveyed. An appropriate pocket of fluid was identified at the right lower quadrant. The skin were cleaned and prepped in the usual sterile fashion. Using ultrasound guidance, the peritoneal cavity was accessed with a 5-Bangladeshi paracentesis needle/catheter system. The trocar was removed. A total of 2280 ml of keanu-colored fluid were removed from the peritoneal cavity. The catheter was removed and a sterile dressing was applied. A specimen was sent to the laboratory. The procedure was well tolerated. US/Paracentesis with US IMPRESSION: Ultrasound guided paracentesis. Electronically Signed: Micah Zelaya MD at 12:30 EDT , Service support ,
--- NOTE | 2020-11-30 09:35 | PN.RENAL_ITS ---
Subjective Subjective Patient is not feeling well. Complaining of left lower ribs pain Patient had thoracocentesis yesterday Going to have paracentesis today Denied worsening breathing. No nausea no vomiting Objective Data Objective Data Vital Signs: Vital Signs Temp Pulse Resp BP Pulse Ox 98.1 F 71 20 H 133/54 H 90 11/30/20 02:18 11/30/20 07:00 11/30/20 06:56 11/30/20 06:59 11/30/20 08:00 Oxygen Flow Rate (L/min) 3 Oxygen Delivery Method [3] Room Air Oxygen Delivery Method [2] Room Air Oxygen Delivery Method [1 ( Room Air Initial Baseline)] Oxygen Delivery Method Room Air Weight: 88.4 kg Body Mass Index (BMI) 29.5 Intake & Output: Intake and Output for Last 24 Hours 11/28/20 11/29/20 11/30/20 23:59 23:59 23:59 Intake Total 1480 / 1480 550 / 550 200 / 200 Output Total 230 / 230 675 / 675 70 / 70 Balance 1250 / 1250 -125 / -125 130 / 130 Medical Nutrition Assessment Dietitian: Malnutrition Criteria Met Start: 11/25/20 17:20 Freq: Status: Active Protocol: Document 11/25/20 17:32 SHARAD (Rec: 11/25/20 17:32 [facility] [id number]) Nutrition Malnutrition Evidence of Malnutrition Exists No Intake Problem Inadequate Oral Intake Etiology related to nausea Signs/Symptoms as evidenced by poor po intake x 2 wks prior to admission. Status Active Problem Clinical Problem Altered Nutrient-Related Laboratory Values Etiology related to renal/endocrine dysfunction Signs/Symptoms as evidenced by Na 134, K 2.7, Cr 2.33, gluc 118 Status Active Problem Recommendation Dietitian Recommendations/Changes Will change diet to Consistent CHO/ Sodium Restriction / 1500 ml fluid/day Will provide 120 ml Nepro CHO Steady w/ meals for increased nutrition if consumed Lab / Micro Data Result Diagrams: 11/30/20 05:00 11/30/20 05:00 Labs: Laboratory Results - last 24 hr 11/29/20 06:25: Diff Path Review Reviewed 11/29/20 06:25: Total Bilirubin 3.20 H, Direct Bilirubin 2.70 H, AST 68 H, ALT 26, Alkaline Phosphatase 769 H, Total Protein 7.5, Albumin 2.1 L, Globulin 5.4 H 11/29/20 11:11: POC Glucose 77 11/29/20 14:38: Fluid Glucose 69, Fluid Total Protein 2.8, Fluid LDH 169 11/29/20 14:55: POC Glucose 69 L 11/29/20 14:58: Fluid Source THORACENTESIS, Fluid Color YELLOW, Fluid Appearance CLOUDY, Fluid WBC 0.172, Fluid RBC 0.005, Fluid Tot Cell Count 0.177 H, Fld Polynuclear WBCs # 0.059, Fld Polynuclear WBCs % 34.3, Fluid Mononuclear WBCs 0.113, Fld Mononuclear WBCs % 65.7, Fluid Neutrophils 32, Fluid Lymphocytes 33, Fluid Monocytes 35, Fl Pathologist Comment May follow, Fluid Comment 2 SEE COMMENT 11/29/20 21:42: POC Glucose 74 11/30/20 01:20: POC Glucose 111 H 11/30/20 05:00: WBC 11.9 H, RBC 3.59 L, Hgb 10.1 L, Hct 31.3 L, MCV 87.2, MCH 28.1, MCHC 32.3, RDW Std Deviation 61.1 H, RDW Coeff of Grazyna 20.1 H, Plt Count 313, MPV 10.8, Immature Gran % (Auto) 0.700, Neut % (Auto) 76.8 H, Lymph % (Auto) 7.9 L, [place] % (Auto) 12.7 H, Eos % (Auto) 1.3, Baso % (Auto) 0.6, Absolute Neuts (auto) 9.1 H, Absolute Lymphs (auto) 0.94, Nucleated RBC % 0, Diff Path Review August, Target Cells 2+ 11/30/20 05:00: Sodium 128 L, Potassium 5.0, Chloride 91 L, Carbon Dioxide 27.0, Anion Gap 10, BUN 33 H, Creatinine 5.09 H, Estim Creat Clear Calc 11.98, Est GFR (MDRD) Af Amer 11 L, Est GFR (MDRD) Non-Af 9 L, BUN/Creatinine Ratio 6.5 L, Glucose 155 H, Calcium 8.7 11/30/20 05:00: Lactate Dehydrogenase 270 H 11/30/20 06:54: POC Glucose 158 H Micro: Microbiology 11/28/20 08:22 Blood Culture (Wb) - Left Hand Blood Culture - Preliminary No growth in 48 hours. 11/28/20 08:28 Blood Culture (Wb) - Left Forearm Blood Culture - Preliminary No growth in 48 hours. 11/25/20 12:02 Mucosa - Nose SARS-CoV-2 Antigen (Rapid) - Final Radiography Diagnostic Testing: Radiology Impression Hepatobiliary Scan Nuclear Medicine 11/29/20 09:00 IMPRESSION: Nonvisualization of gallbladder. Differential diagnosis includes recent meal, prolonged fasting, acute cholecystitis, or chronic cholecystitis. Electronically Signed: Alfred Ricardo MD at 11:06 EDT Tel , Service support , Thoracentesis Ultrasound 11/29/20 11:13 IMPRESSION: Ultrasound-guided right thoracentesis. Electronically Signed: Micah Zelaya MD at 15:16 EDT , Service support , ADDENDUM: 11/30/20 0816 Chest X-Ray 11/29/20 14:38 IMPRESSION: Status post right thoracentesis. There is no evidence of pneumothorax. Electronically Signed: Micah Zelaya MD at 14:51 EDT , Service support , Physical Exam Narrative General: Alert and oriented x3 in no apparent distress. HEENT: Normocephalic, atraumatic. Mucous membrane moist without erythema. Neck: Supple. Heart: Normal S1, S2. No rubs or murmurs. Lungs: Clear to auscultation bilaterally. Abdomen: Normal bowel sounds, soft, nontender, no guarding or rebound. Extremity: Trace edema in the lower extremities. No clubbing or cyanosis. Assessment & Plan Assessment/Plan (1) ESRD (end stage renal disease) on dialysis: PLAN: The patient usually dialyzes on a Saturday, Saturday and Saturday schedule at [facility]. She is followed there by Dr. Glynn. We will arrange for hemodialysis in today. We will try 2 to 3 L fluid removal HD access RUE access (2) Anemia: PLAN: Hemoglobin is at goal for dialysis patient. . (3) HTN (hypertension): PLAN: Patient has been having low diastolic blood pressure. Could not tolerate full session hemodialysis session last time. I will hold hydralazine for now. Might restart hydralazine later at a lower dose (4) CHF exacerbation: QUALIFIERS: Heart failure type: unspecified Qualified Code(s): I50.9 - Heart failure, unspecified PLAN: Clinically improved after ultrafiltration . We will plan on dialysis again day of 2 to 3 L. (5) Hyponatremia: PLAN: Likely from fluid overload. We will try 2 to 3 L ultrafiltration
--- NOTE | 2020-11-30 09:42 | NURSING ---
0930-pt npo for dialysis immediatly following paracentesis. pt will continue to monitor bs and pump. pump and monitor to alarm if bs <85. down for paracentesis via bed with o2 at 3.5l.
[2020-11-30 10:25] LABS: Pathologist Comment/Body Fluid Reviewed
[2020-11-30 10:26] LABS: Pathologist Review Reviewed
[2020-11-30] MEDS: Lidocaine 2% (5ml sdv) 5 ML VIAL.MPF (10:31)
--- NOTE | 2020-11-30 11:09 | DIALYSIS ---
Addendum entered by Eldon Quintana 11/30/20 11:31: Access: Right upper arm AVF Original Note: Patient arrived from paracentesis. Report from primary RN, Keyanna Carlisle Access: Left upper arm AVF. Site benign, thrill and bruit present, cannulated with 15 gauge needles. [place] taped securely to patient's arm.
--- NOTE | 2020-11-30 14:02 | PN.HOSP_ITS ---
Subjective Subjective Patient seen and examined. SHe still complained of feeling very weak and tired. She had thoracentesis yesterday with removal of 400mls of fluid. Review of systems otherwise negative. SHe was due for dialysis this morning. She is also scheduled for paracentesis. She has remained hemodynamically stable. Objective Data Objective Data Vital Signs: Vital Signs Temp Pulse Resp BP Pulse Ox 97.9 F 67 16 121/46 H 95 11/30/20 10:30 11/30/20 10:30 11/30/20 10:30 11/30/20 10:30 11/30/20 10:30 Oxygen Flow Rate (L/min) [3] 3 Oxygen Flow Rate (L/min) [2] 3 Oxygen Flow Rate (L/min) 3.5 Oxygen Delivery Method [3] Nasal Cannula Oxygen Delivery Method [2] Nasal Cannula Oxygen Delivery Method [1 ( Room Air Initial Baseline)] Oxygen Delivery Method Nasal Cannula Weight: 194 lb 14.218 oz Body Mass Index (BMI) 29.5 Intake & Output: Intake and Output for Last 24 Hours 11/28/20 11/29/20 11/30/20 23:59 23:59 23:59 Intake Total 1480 / 1480 550 / 550 200 / 200 Output Total 230 / 230 675 / 675 4570 / 4570 Balance 1250 / 1250 -125 / -125 -4370 / -4370 Medical Nutrition Assessment Dietitian: Malnutrition Criteria Met Start: 11/25/20 17:20 Freq: Status: Active Protocol: Document 11/25/20 17:32 SHARAD (Rec: 11/25/20 17:32 SHARAD [id number]) Nutrition Malnutrition Evidence of Malnutrition Exists No Intake Problem Inadequate Oral Intake Etiology related to nausea Signs/Symptoms as evidenced by poor po intake x 2 wks prior to admission. Status Active Problem Clinical Problem Altered Nutrient-Related Laboratory Values Etiology related to renal/endocrine dysfunction Signs/Symptoms as evidenced by Na 134, K 2.7, Cr 2.33, gluc 118 Status Active Problem Recommendation Dietitian Recommendations/Changes Will change diet to Consistent CHO/ Sodium Restriction / 1500 ml fluid/day Will provide 120 ml Nepro CHO Steady w/ meals for increased nutrition if consumed Lab / Micro Data Result Diagrams: 11/30/20 05:00 11/30/20 05:00 Labs: Laboratory Results - last 24 hr 11/29/20 14:38: Fluid Glucose 69, Fluid Total Protein 2.8, Fluid LDH 169 11/29/20 14:55: POC Glucose 69 L 11/29/20 14:58: Fluid Source THORACENTESIS, Fluid Color YELLOW, Fluid Appearance CLOUDY, Fluid WBC 0.172, Fluid RBC 0.005, Fluid Tot Cell Count 0.177 H, Fld Polynuclear WBCs # 0.059, Fld Polynuclear WBCs % 34.3, Fluid Mononuclear WBCs 0.113, Fld Mononuclear WBCs % 65.7, Fluid Neutrophils 32, Fluid Lymphocytes 33, Fluid Monocytes 35, Fl Pathologist Comment Reviewed, Fluid Comment 2 SEE COMMENT 11/29/20 21:42: POC Glucose 74 11/30/20 01:20: POC Glucose 111 H 11/30/20 05:00: WBC 11.9 H, RBC 3.59 L, Hgb 10.1 L, Hct 31.3 L, MCV 87.2, MCH 28.1, MCHC 32.3, RDW Std Deviation 61.1 H, RDW Coeff of Grazyna 20.1 H, Plt Count 313, MPV 10.8, Immature Gran % (Auto) 0.700, Neut % (Auto) 76.8 H, Lymph % (Auto) 7.9 L, [place] % (Auto) 12.7 H, Eos % (Auto) 1.3, Baso % (Auto) 0.6, Absolute Neuts (auto) 9.1 H, Absolute Lymphs (auto) 0.94, Nucleated RBC % 0, Diff Path Review Reviewed, Target Cells 2+ 11/30/20 05:00: Sodium 128 L, Potassium 5.0, Chloride 91 L, Carbon Dioxide 27.0, Anion Gap 10, BUN 33 H, Creatinine 5.09 H, Estim Creat Clear Calc 11.98, Est GFR (MDRD) Af Amer 11 L, Est GFR (MDRD) Non-Af 9 L, BUN/Creatinine Ratio 6.5 L, Glucose 155 H, Calcium 8.7 11/30/20 05:00: Lactate Dehydrogenase 270 H 11/30/20 06:54: POC Glucose 158 H Micro: Microbiology 11/28/20 08:22 Blood Culture (Wb) - Left Hand Blood Culture - Preliminary No growth in 48 hours. 11/28/20 08:28 Blood Culture (Wb) - Left Forearm Blood Culture - Preliminary No growth in 48 hours. 11/25/20 12:02 Mucosa - Nose SARS-CoV-2 Antigen (Rapid) - Final Radiography Diagnostic Testing: Radiology Impression Thoracentesis Ultrasound 11/29/20 11:13 IMPRESSION: Ultrasound-guided right thoracentesis. Electronically Signed: Micah Zelaya MD at 15:16 EDT , Service support , ADDENDUM: 11/30/20 0816 Chest X-Ray 11/29/20 14:38 IMPRESSION: Status post right thoracentesis. There is no evidence of pneumothorax. Electronically Signed: Micah Zelaya MD at 14:51 EDT , Service support , Paracentesis Ultrasound 11/30/20 09:30 IMPRESSION: Ultrasound guided paracentesis. Electronically Signed: Micah Zelaya MD at 12:30 EDT , Service support , Physical Exam Const alert, oriented x3 and no apparent distress Constitutional Narrative: looks very frail and weak Exam Limitations: no limitations HEENT head/scalp atraumatic, moist oral mucous membranes and oropharynx normal Head and Scalp: normocephalic Eyes PERRL, EOMs intact bilaterally and conjunctivae normal Neck no lymphadenopathy Resp Resp Narrative: diminished breath sounds bibasally, no wheezes or crackles. on 3L of oxygen. Cardio regular rate, regular rhythm, S1 normal heart sound, S2 normal heart sound and no murmurs GI normal to inspection, nondistended, normoactive bowel sounds, soft to palpation, non-tender and non-distended Extremity normal to inspection and full ROM Extremity Narrative: AV fistula with good thrill in LUE; 1+ bipedal pitting edema Peripheral Pulses: Yes pulses 2+ throughout Skin no rashes or lesions noted Neuro oriented x3, CN's II-XII intact bilaterally and moves all extremities Sensorium / Orientation: awake and alert Psych affect normal Assessment & Plan Assessment/Plan (1) ESRD (end stage renal disease) on dialysis: (2) CHF exacerbation: QUALIFIERS: Heart failure type: unspecified Qualified Code(s): I50.9 - Heart failure, unspecified (3) Hypoxia: PLAN: #acute on chronic heart failure with preserved EF * on IV lasix * nephrology on board for diuresis. * monitor intake and output. Fluid restriction to 1500cc daily. * s/p thoracentesis with removal of 400cc of fluid, analysis of which shows its a transudate. * #Elevated liver enzymes * liver enzymes still remain elevated. * gallbladder USG showed mild hepatomegaly and diffuse fatty infiltration of the liver, with sludge in the gallbladder lumen. * general surgery consulted; doesnt think it is acute cholecystitis and ruled out any acute gallbladder pathology * HIDA scan done today showed non-visualisation of the gallbladder. * on IV cefepime due to concerns about possible infection. * did hav ascites, and is due for paracentesis today * #Chronic respiratory failure * due to heart failure and right pleural effusion. * on 2L of oxygen at home; currently on 3L of oxygen. * diagnostic thoracentesis ordered as patient still has a right sided pleural effusion * #Right sided pleural effusion * chest CTA showed right pleural effusion * abdominopelvic CT showed ascites with bilateral pleural effusion * small bibasilar consolidations. * diagnostic thoracentesis ordered. This may be due to heart failure and ESRD. * #Ascites * as per CT scan. This may be due to ESRD. * also has elevated liver enzymes; * had paracentesis today with removal of 2.25L of fluid. Will check SAAG gradient to evaluate fluid * #Hypokalemia:resolved. #ESRD on hemodialysis * has dialysis MWF. * nephrology on board. * #CAD: s/p stents. on aspirin, statin and metoprolol. #History of Mitral ema regurgitation; stable #Hypertension; on metoprolol and hydralazine. #Hyperlipidemia: on statin #paroxysmal afib: on metoprolol. Eliquis on hold due to history of nose bleeds. #GERD: on PPI DVT prophylaxis: heparin Disposition: I counseled patient about the need for placement due to her frailty. She is willing to consider short term placement. Case mangement on board. Charges/Coding Visit Charges Inpatient E&M: 74377 Subs Hosp L3
[2020-11-30 15:00] LABS: AST(SGOT) 68 U/L (15-37); Alanine Aminotransfer ALT/SGPT 30 U/L (13-56); Albumin, Serum 2.2 g/dL (3.2-5.0); Alkaline Phosphatase 864 U/L (45-117); Bilirubin, Direct 2.58 mg/dL (0.00-0.30); Globulin 5.3 g/dL (2.2-4.2); Protein, Total 7.5 g/dL (6.4-8.2)
--- NOTE | 2020-11-30 15:35 | DIALYSIS ---
Hemodialysis complete. 4 hour run, 2k bath. Net fluid removed = 3200 ml. Patient tolerated HD tx well. Right upper arm AVF: Site benign, thrill and bruit present, needle site pressure held 10 min each. Hemostasis achieved. Pressure dressing applied. Report given to primary RNKeyanna.
--- NOTE | 2020-11-30 16:21 | PN.SURG_ITS ---
Subjective Subjective No complaints of abdominal pain today. Not very hungry. Objective Data Objective Data Abdomen much softer today. No palpable abdominal pain Vital Signs: Vital Signs Temp Pulse Resp BP Pulse Ox 98.0 F 71 14 134/58 H 95 11/30/20 15:15 11/30/20 15:15 11/30/20 15:15 11/30/20 15:15 11/30/20 15:15 Oxygen Flow Rate (L/min) [3] 3 Oxygen Flow Rate (L/min) [2] 3 Oxygen Flow Rate (L/min) 3.5 Oxygen Delivery Method [3] Nasal Cannula Oxygen Delivery Method [2] Nasal Cannula Oxygen Delivery Method [1 ( Room Air Initial Baseline)] Oxygen Delivery Method Nasal Cannula Weight: 194 lb 14.218 oz Body Mass Index (BMI) 29.5 Intake & Output: Intake and Output for Last 24 Hours 11/28/20 11/29/20 11/30/20 23:59 23:59 23:59 Intake Total 1480 / 1480 550 / 550 200 / 200 Output Total 230 / 230 675 / 675 7770 / 7770 Balance 1250 / 1250 -125 / -125 -7570 / -7570 Medical Nutrition Assessment Dietitian: Malnutrition Criteria Met Start: 11/25/20 17:20 Freq: Status: Active Protocol: Document 11/25/20 17:32 SHARAD (Rec: 11/25/20 17:32 SHARAD [id number]) Nutrition Malnutrition Evidence of Malnutrition Exists No Intake Problem Inadequate Oral Intake Etiology related to nausea Signs/Symptoms as evidenced by poor po intake x 2 wks prior to admission. Status Active Problem Clinical Problem Altered Nutrient-Related Laboratory Values Etiology related to renal/endocrine dysfunction Signs/Symptoms as evidenced by Na 134, K 2.7, Cr 2.33, gluc 118 Status Active Problem Recommendation Dietitian Recommendations/Changes Will change diet to Consistent CHO/ Sodium Restriction / 1500 ml fluid/day Will provide 120 ml Nepro CHO Steady w/ meals for increased nutrition if consumed Lab / Micro Data Result Diagrams: 11/30/20 05:00 11/30/20 05:00 Labs: Laboratory Results - last 24 hr 11/29/20 14:38: Fluid Glucose 69, Fluid Total Protein 2.8, Fluid LDH 169 11/29/20 14:58: Fluid Source THORACENTESIS, Fluid Color YELLOW, Fluid Appearance CLOUDY, Fluid Neutrophils 32, Fluid Lymphocytes 33, Fluid Monocytes 35, Fl Pathologist Comment Reviewed, Fluid Comment 2 SEE COMMENT 11/29/20 21:42: POC Glucose 74 11/30/20 01:20: POC Glucose 111 H 11/30/20 05:00: WBC 11.9 H, RBC 3.59 L, Hgb 10.1 L, Hct 31.3 L, MCV 87.2, MCH 28.1, MCHC 32.3, RDW Std Deviation 61.1 H, RDW Coeff of Grazyna 20.1 H, Plt Count 313, MPV 10.8, Immature Gran % (Auto) 0.700, Neut % (Auto) 76.8 H, Lymph % (Aut o) 7.9 L, [place] % (Auto) 12.7 H, Eos % (Auto) 1.3, Baso % (Auto) 0.6, Absolute Neuts (auto) 9.1 H, Absolute Lymphs (auto) 0.94, Nucleated RBC % 0, Diff Path Review Reviewed, Target Cells 2+ 11/30/20 05:00: Sodium 128 L, Potassium 5.0, Chloride 91 L, Carbon Dioxide 27.0, Anion Gap 10, BUN 33 H, Creatinine 5.09 H, Estim Creat Clear Calc 11.98, Est GFR (MDRD) Af Amer 11 L, Est GFR (MDRD) Non-Af 9 L, BUN/Creatinine Ratio 6.5 L, Glucose 155 H, Calcium 8.7 11/30/20 05:00: Lactate Dehydrogenase 270 H 11/30/20 05:00: Total Bilirubin 3.00 H, Direct Bilirubin 2.58 H, AST 68 H, ALT 30, Alkaline Phosphatase 864 H, Total Protein 7.5, Albumin 2.2 L, Globulin 5.3 H 11/30/20 06:54: POC Glucose 158 H Micro: Microbiology 11/28/20 08:22 Blood Culture (Wb) - Left Hand Blood Culture - Preliminary No growth in 48 hours. 11/28/20 08:28 Blood Culture (Wb) - Left Forearm Blood Culture - Preliminary No growth in 48 hours. 11/25/20 12:02 Mucosa - Nose SARS-CoV-2 Antigen (Rapid) - Final Radiography Diagnostic Testing: Radiology Impression Thoracentesis Ultrasound 11/29/20 11:13 IMPRESSION: Ultrasound-guided right thoracentesis. Electronically Signed: Micah Zelaya MD at 15:16 EDT , Service support , ADDENDUM: 11/30/20 0816 Paracentesis Ultrasound 11/30/20 09:30 IMPRESSION: Ultrasound guided paracentesis. Electronically Signed: Micah Zelaya MD at 12:30 EDT , Service support , Assessment & Plan Assessment/Plan (1) Elevated liver enzymes: (2) Gallbladder sludge: PLAN: Do not believe the etiology of elevation in her liver enzymes is related to gallbladder at this time.
[2020-11-30] MEDS: Pantoprazole Sodium 40 MG Tablet PO (16:45)
[2020-11-30] MEDS: Ascorbic Acid 500 MG Tablet PO (16:45)
[2020-11-30] MEDS: Cholecalciferol (VIT D3) 25 MCG TABLET (1,000 UNITS) 125 MCG PO (16:45)
[2020-11-30] MEDS: Aspirin E.C. 81 MG Tablet PO (16:50)
[2020-11-30] MEDS: Ondansetron 4 MG/2 ML Vial IV (16:53)
[2020-11-30] MEDS: Furosemide 40 MG/4 ML Vial IV (18:16)
[2020-11-30] MEDS: Metoprolol(XL)Succ 50 MG Tablet PO (19:33)
[2020-11-30] MEDS: Heparin Injection (Vial) 5,000 UNIT/ML VIAL 5000 UNIT SC (19:33)
--- NOTE | 2020-11-30 19:35 | NURSING ---
Pt c/o feeling very tired. meds given early per request
[2020-12-01] VITALS (15 sets, daily range): BP systolic 114–122; BP diastolic 40–53; PULSE 66–76; RESP 17–18; TEMP 36.6–37.1; O2SAT 92–95
[2020-12-01] MEDS: hydrOXYzine PAM 25 MG Capsule PO ×3 (04:58→20:55)
[2020-12-01 06:00] LABS: Absolute Lymphocyte Count 1.32 X10^3/uL (0.83-4.51); Absolute Neutrophil Count 9.4 X10^3/uL (2.0-7.7); Basophil% 0.8 % (0-1); Eosinophil# 0.19 X10^3/uL; Eosinophils% 1.5 % (0-5); Lymphocyte # 1.32 X10^3/ul (0.83-4.51); Lymphocyte % 10.1 % (19-41); Mean Corp Hgb Conc 32.3 g/dL (32-36); Mean Corpuscular Hgb 28.6 pg (27.0-32.0); Mean Corpuscular Volume 88.6 fL (81-99); Mean Platelet Vol. 11.1 fl (6.2-12.0); Monocyte# 1.96 X10^3/uL; NRBC Flagged by Analyzer 0 % (0-5); Neutrophil # 9.37 X10^3/uL (2.7-7.7); Neutrophil % 71.8 % (47-70); POSITIVE DIFFERENTIAL YES; POSITIVE MORPHOLOGY YES; Platelet Count 318 K/mm3 (150-450); RBC Distribution Width CV 20.9 % (11.6-14.6); RBC Distribution Width SD 65.7 fl (35.1-43.9)
[2020-12-01 06:04] LABS: Differential Indicated SCAN CRITERIA MET
[2020-12-01 06:21] LABS: Differential Comment SCANNED
[2020-12-01 06:23] LABS: Anisocytosis 1+; Macrocytosis RARE; Microcytosis RARE; Target Cells 1+
[2020-12-01 06:29] LABS: Anion Gap 7 (5-15); BUN 20 mg/dL (7-18); BUN/Creat Ratio 5.8 RATIO (10-20); Calcium,Total 8.4 mg/dL (8.5-10.1); Chloride 95 mmol/L (98-107); Creatinine, Serum 3.44 mg/dL (0.55-1.02); EST Glomerular Filtration Rate 14 mL/min (>60); Est Glom Filt Rate - Afr Amer 17 mL/min (>60); Estimated Creatinine Clearance 17.72 ml/min; Glucose 123 mg/dL (74-106); Potassium 3.8 mmol/L (3.5-5.1); Sodium Level 130 mmol/L (136-145)
[2020-12-01 07:53] LABS: AST(SGOT) 48 U/L (15-37); Alanine Aminotransfer ALT/SGPT 25 U/L (13-56); Albumin, Serum 2.1 g/dL (3.2-5.0); Alkaline Phosphatase 850 U/L (45-117); Bilirubin, Direct 2.04 mg/dL (0.00-0.30); Globulin 5.6 g/dL (2.2-4.2); Protein, Total 7.7 g/dL (6.4-8.2)
[2020-12-01] MEDS: Metoprolol(XL)Succ 50 MG Tablet PO ×2 (09:04→20:55)
[2020-12-01] MEDS: Aspirin E.C. 81 MG Tablet PO (09:04)
[2020-12-01] MEDS: Pantoprazole Sodium 40 MG Tablet PO (09:04)
[2020-12-01] MEDS: Heparin Injection (Vial) 5,000 UNIT/ML VIAL 5000 UNIT SC ×2 (09:06→20:55)
[2020-12-01] MEDS: Furosemide 40 MG/4 ML Vial IV ×2 (09:07→17:53)
[2020-12-01] MEDS: 0.9% Saline Lock 10 ML Syringe IV ×3 (09:08→22:29)
--- NOTE | 2020-12-01 09:11 | CASEMGMT ---
JINA spoke with patient and she would like [facility]. JINA faxed referral. JINA also called [facility]. Plan: [facility] pending acceptance. Ana REYES
--- NOTE | 2020-12-01 09:25 | PCM.PN.REN ---
Subjective Subjective feeling better today No SOB. No N/V/CP Objective Data Objective Data Vital Signs: Vital Signs Temp Pulse Resp BP Pulse Ox 97.8 F 74 18 114/40 L 95 12/01/20 08:15 12/01/20 09:04 12/01/20 08:15 12/01/20 09:04 12/01/20 08:15 Oxygen Flow Rate (L/min) [3] 3 Oxygen Flow Rate (L/min) [2] 3 Oxygen Flow Rate (L/min) 3.5 Oxygen Delivery Method [3] Nasal Cannula Oxygen Delivery Method [2] Nasal Cannula Oxygen Delivery Method [1 ( Room Air Initial Baseline)] Oxygen Delivery Method Nasal Cannula Weight: 82 kg Body Mass Index (BMI) 29.5 Intake & Output: Intake and Output for Last 24 Hours 11/29/20 11/30/20 12/01/20 23:59 23:59 23:59 Intake Total 550 / 550 370 / 490 180 / 180 Output Total 675 / 675 55741 / 62376 50 / 50 Balance -125 / -125 -79831 / -72763 130 / 130 Medical Nutrition Assessment Dietitian: Malnutrition Criteria Met Start: 11/25/20 17:20 Freq: Status: Active Protocol: Document 11/25/20 17:32 SHARAD (Rec: 11/25/20 17:32 SLA [id number]) Nutrition Malnutrition Evidence of Malnutrition Exists No Intake Problem Inadequate Oral Intake Etiology related to nausea Signs/Symptoms as evidenced by poor po intake x 2 wks prior to admission. Status Active Problem Clinical Problem Altered Nutrient-Related Laboratory Values Etiology related to renal/endocrine dysfunction Signs/Symptoms as evidenced by Na 134, K 2.7, Cr 2.33, gluc 118 Status Active Problem Recommendation Dietitian Recommendations/Changes Will change diet to Consistent CHO/ Sodium Restriction / 1500 ml fluid/day Will provide 120 ml Nepro CHO Steady w/ meals for increased nutrition if consumed Lab / Micro Data Result Diagrams: 12/01/20 05:30 12/01/20 05:30 Labs: Laboratory Results - last 24 hr 11/29/20 14:58: Fl Pathologist Comment Reviewed 11/30/20 05:00: Diff Path Review Reviewed 11/30/20 05:00: Total Bilirubin 3.00 H, Direct Bilirubin 2.58 H, AST 68 H, ALT 30, Alkaline Phosphatase 864 H, Total Protein 7.5, Albumin 2.2 L, Globulin 5.3 H 12/01/20 05:30: WBC 13.0 H, RBC 3.50 L, Hgb 10.0 L, Hct 31.0 L, MCV 88.6, MCH 28.6, MCHC 32.3, RDW Std Deviation 65.7 H, RDW Coeff of Grazyna 20.9 H, Plt Count 318, MPV 11.1, Immature Gran % (Auto) 0.800, Neut % (Auto) 71.8 H, Lymph % (Auto) 10.1 L, [place] % (Auto) 15.0 H, Eos % (Auto) 1.5, Baso % (Auto) 0.8, Absolute Neuts (auto) 9.4 H, Absolute Lymphs (auto) 1.32, Nucleated RBC % 0, Differential Comment SCANNED, Diff Path Review May foll, Anisocytosis 1+, Microcytosis RARE, Macrocytosis RARE, Target Cells 1+ 12/01/20 05:30: Sodium 130 L, Potassium 3.8, Chloride 95 L, Carbon Dioxide 28.0, Anion Gap 7, BUN 20 H, Creatinine 3.44 H, Estim Creat Clear Calc 17.72, Est GFR (MDRD) Af Amer 17 L, Est GFR (MDRD) Non-Af 14 L, BUN/Creatinine Ratio 5.8 L, Glucose 123 H, Calcium 8.4 L 12/01/20 05:30: Total Bilirubin 2.50 H, Direct Bilirubin 2.04 H, AST 48 H, ALT 25, Alkaline Phosphatase 850 H, Total Protein 7.7, Albumin 2.1 L, Globulin 5.6 H Micro: Microbiology 11/28/20 08:22 Blood Culture (Wb) - Left Hand Blood Culture - Preliminary No growth in 48 hours. 11/28/20 08:28 Blood Culture (Wb) - Left Forearm Blood Culture - Preliminary No growth in 48 hours. 11/25/20 12:02 Mucosa - Nose SARS-CoV-2 Antigen (Rapid) - Final Radiography Diagnostic Testing: Radiology Impression Paracentesis Ultrasound 11/30/20 09:30 IMPRESSION: Ultrasound guided paracentesis. Electronically Signed: Micah Zelaya MD at 12:30 EDT , Service support , Physical Exam Narrative General: Alert and oriented x3 in no apparent distress. HEENT: Normocephalic, atraumatic. Mucous membrane moist without erythema. Neck: Supple. Heart: Normal S1, S2. No rubs or murmurs. Lungs: Clear to auscultation bilaterally. Abdomen: Normal bowel sounds, soft, nontender, no guarding or rebound. Extremity: Trace edema in the lower extremities. No clubbing or cyanosis. Assessment & Plan Assessment/Plan (1) ESRD (end stage renal disease) on dialysis: PLAN: The patient usually dialyzes on a Saturday, Saturday and Saturday schedule at [facility]. She is followed there by Dr. Glynn. last HD session 11/30 with 3L UF next HD session tomorrow HD access RUE access (2) Anemia: PLAN: Hemoglobin is at goal for dialysis patient. . (3) HTN (hypertension): PLAN: Continue holding hydralazine Still with low DBP (4) CHF exacerbation: QUALIFIERS: Heart failure type: unspecified Qualified Code(s): I50.9 - Heart failure, unspecified PLAN: Clinically improved after ultrafiltration . UF as tolerated with HD session. (5) Hyponatremia: PLAN: Likely from fluid overload. Na improved slightly with HD and UF Keep O>I Monitor Na level
--- NOTE | 2020-12-01 10:30 | CASEMGMT ---
SW received a voice mail from [facility]. They can accept patient. Ana REYES
--- NOTE | 2020-12-01 11:20 | CASEMGMT ---
JINA called [facility] at [facility] and let her know patient's dialysis time and that patient is vaccinated. SW asked her to please start the pre-cert. SW let patient know that [facility] can accept her. Plan: d/c to [facility] pending insurance approval. Ana REYES
--- NOTE | 2020-12-01 11:25 | CASEMGMT ---
This RN ELSY received message from pt's [facility] CMJennifer, requesting call back. Jennifer updated on pt d/c plan and would like d/c summ/instructions faxed at dispo. Contact info: , . Reed PRAKASH CM
--- NOTE | 2020-12-01 11:50 | PN.HOSP_ITS ---
Subjective Subjective Patient seen and examined. She says she feels much better today. Her breathing is much better. Review of systems otherwise negative. She has remained hemodynamically stable. Total bilirubin has trended down to 2.5. ALP remains elevated. Objective Data Objective Data Vital Signs: Vital Signs Temp Pulse Resp BP Pulse Ox 97.8 F 74 18 114/40 L 94 12/01/20 08:15 12/01/20 09:04 12/01/20 08:15 12/01/20 09:04 12/01/20 09:00 Oxygen Flow Rate (L/min) [3] 3 Oxygen Flow Rate (L/min) [2] 3 Oxygen Flow Rate (L/min) 4 Oxygen Delivery Method [3] Nasal Cannula Oxygen Delivery Method [2] Nasal Cannula Oxygen Delivery Method [1 ( Room Air Initial Baseline)] Oxygen Delivery Method Nasal Cannula Weight: 180 lb 12.465 oz Body Mass Index (BMI) 29.5 Intake & Output: Intake and Output for Last 24 Hours 11/29/20 11/30/20 12/01/20 23:59 23:59 23:59 Intake Total 550 / 550 370 / 490 180 / 180 Output Total 675 / 675 63455 / 26685 50 / 50 Balance -125 / -125 -04096 / -96564 130 / 130 Medical Nutrition Assessment Dietitian: Malnutrition Criteria Met Start: 11/25/20 17:20 Freq: Status: Active Protocol: Document 11/25/20 17:32 SHARAD (Rec: 11/25/20 17:32 SHARAD [id number]) Nutrition Malnutrition Evidence of Malnutrition Exists No Intake Problem Inadequate Oral Intake Etiology related to nausea Signs/Symptoms as evidenced by poor po intake x 2 wks prior to admission. Status Active Problem Clinical Problem Altered Nutrient-Related Laboratory Values Etiology related to renal/endocrine dysfunction Signs/Symptoms as evidenced by Na 134, K 2.7, Cr 2.33, gluc 118 Status Active Problem Recommendation Dietitian Recommendations/Changes Will change diet to Consistent CHO/ Sodium Restriction / 1500 ml fluid/day Will provide 120 ml Nepro CHO Steady w/ meals for increased nutrition if consumed Lab / Micro Data Result Diagrams: 12/01/20 05:30 12/01/20 05:30 Labs: Laboratory Results - last 24 hr 11/30/20 05:00: Total Bilirubin 3.00 H, Direct Bilirubin 2.58 H, AST 68 H, ALT 30, Alkaline Phosphatase 864 H, Total Protein 7.5, Albumin 2.2 L, Globulin 5.3 H 12/01/20 05:30: WBC 13.0 H, RBC 3.50 L, Hgb 10.0 L, Hct 31.0 L, MCV 88.6, MCH 28.6, MCHC 32.3, RDW Std Deviation 65.7 H, RDW Coeff of Grazyna 20.9 H, Plt Count 318, MPV 11.1, Immature Gran % (Auto) 0.800, Neut % (Auto) 71.8 H, Lymph % (Auto) 10.1 L, [place] % (Auto) 15.0 H, Eos % (Auto) 1.5, Baso % (Auto) 0.8, Absolute Neuts (auto) 9.4 H, Absolute Lymphs (auto) 1.32, Nucleated RBC % 0, Differential Comment SCANNED, Diff Path Review August, Anisocytosis 1+, Microcytosis RARE, Macrocytosis RARE, Target Cells 1+ 12/01/20 05:30: Sodium 130 L, Potassium 3.8, Chloride 95 L, Carbon Dioxide 28.0, Anion Gap 7, BUN 20 H, Creatinine 3.44 H, Estim Creat Clear Calc 17.72, Est GFR (MDRD) Af Amer 17 L, Est GFR (MDRD) Non-Af 14 L, BUN/Creatinine Ratio 5.8 L, Glucose 123 H, Calcium 8.4 L 12/01/20 05:30: Total Bilirubin 2.50 H, Direct Bilirubin 2.04 H, AST 48 H, ALT 25, Alkaline Phosphatase 850 H, Total Protein 7.7, Albumin 2.1 L, Globulin 5.6 H Micro: Microbiology 11/28/20 08:22 Blood Culture (Wb) - Left Hand Blood Culture - Preliminary No growth in 48 hours. 11/28/20 08:28 Blood Culture (Wb) - Left Forearm Blood Culture - Preliminary No growth in 48 hours. 11/25/20 12:02 Mucosa - Nose SARS-CoV-2 Antigen (Rapid) - Final Radiography Diagnostic Testing: Radiology Impression Paracentesis Ultrasound 11/30/20 09:30 IMPRESSION: Ultrasound guided paracentesis. Electronically Signed: Micah Zelaya MD at 12:30 EDT , Service support , Physical Exam Const alert, oriented x3 and no apparent distress Constitutional Narrative: still looks weak. Exam Limitations: no limitations HEENT head/scalp atraumatic, moist oral mucous membranes and oropharynx normal Head and Scalp: normocephalic Eyes PERRL, EOMs intact bilaterally and conjunctivae normal Neck no lymphadenopathy Resp Resp Narrative: diminished breath sounds bibasally, no wheezes or crackles. on 3L of oxygen. Cardio regular rate, regular rhythm, S1 normal heart sound, S2 normal heart sound and no murmurs GI normal to inspection, nondistended, normoactive bowel sounds, soft to palpation, non-tender and non-distended Extremity normal to inspection and full ROM Extremity Narrative: AV fistula with good thrill in LUE; 1+ bipedal pitting edema Peripheral Pulses: Yes pulses 2+ throughout Skin no rashes or lesions noted Neuro oriented x3, CN's II-XII intact bilaterally and moves all extremities Sensorium / Orientation: awake and alert Psych affect normal Assessment & Plan Assessment/Plan (1) ESRD (end stage renal disease) on dialysis: (2) CHF exacerbation: QUALIFIERS: Heart failure type: unspecified Qualified Code(s): I50.9 - Heart failure, unspecified (3) Hypoxia: PLAN: #acute on chronic heart failure with preserved EF * on oral lasix. * nephrology on board for diuresis. * monitor intake and output. Fluid restriction to 1500cc daily. * s/p thoracentesis with removal of 400cc of fluid, analysis of which shows its a transudate. * #Elevated liver enzymes * liver enzymes still remain elevated, but are trending down. * gallbladder USG showed mild hepatomegaly and diffuse fatty infiltration of the liver, with sludge in the gallbladder lumen. * general surgery consulted; doesnt think it is acute cholecystitis and ruled out any acute gallbladder pathology * HIDA scan done today showed non-visualisation of the gallbladder. * I did discuss this again with Dr Valentino today, who doesnt think the elevated liver enzymes are due to a gallbladder pathology * will order MRCP of the abdomen to evaluate the pancreas; will order it for tomorrow so she can have dialysis right after MRCP. * DC antibiotics as blood cultures showed no growth after 48 hours. * * #Chronic respiratory failure * due to heart failure and right pleural effusion. * on 2L of oxygen at home; currently on 3L of oxygen. * s/p thoracentesis with fluid being a transudate on analysis * #Right sided pleural effusion * chest CTA showed right pleural effusion * abdominopelvic CT showed ascites with bilateral pleural effusion * small bibasilar consolidations. * s/p thoracentesis * #Ascites * as per CT scan. This may be due to ESRD. * also has elevated liver enzymes; * had paracentesis today with removal of 2.25L of fluid. Will check SAAG gradient to evaluate fluid * #Hypokalemia:resolved. #ESRD on hemodialysis * has dialysis MWF. * nephrology on board. * #CAD: s/p stents. on aspirin, statin and metoprolol. #History of Mitral ema regurgitation; stable #Hypertension; on metoprolol and hydralazine. #Hyperlipidemia: on statin #paroxysmal afib: on metoprolol. Eliquis on hold due to history of nose bleeds. #GERD: on PPI DVT prophylaxis: heparin Disposition: will need placement. Case management on board. Charges/Coding Visit Charges Inpatient E&M: 75146 Subs Hosp L2
[2020-12-01 11:52] LABS: Pathologist Review Reviewed
[2020-12-01 11:56] LABS: Bedside Glucose 181 mg/dL (70-110)
[2020-12-01] MEDS: Psyllium 1 PACKET PO (12:03)
--- NOTE | 2020-12-01 12:15 | PN.SURG_ITS ---
Subjective Subjective Patient tolerating a diet. Passing flatus. Not having bowel movements frequently. Not complaining of any abdominal pain. Objective Data Objective Data Abdomen is soft nontender Vital Signs: Vital Signs Temp Pulse Resp BP Pulse Ox 97.8 F 74 18 114/40 L 94 12/01/20 08:15 12/01/20 09:04 12/01/20 08:15 12/01/20 09:04 12/01/20 09:00 Oxygen Flow Rate (L/min) [3] 3 Oxygen Flow Rate (L/min) [2] 3 Oxygen Flow Rate (L/min) 4 Oxygen Delivery Method [3] Nasal Cannula Oxygen Delivery Method [2] Nasal Cannula Oxygen Delivery Method [1 ( Room Air Initial Baseline)] Oxygen Delivery Method Nasal Cannula Weight: 180 lb 12.465 oz Body Mass Index (BMI) 29.5 Intake & Output: Intake and Output for Last 24 Hours 11/29/20 11/30/20 12/01/20 23:59 23:59 23:59 Intake Total 550 / 550 370 / 490 420 / 420 Output Total 675 / 675 06667 / 85396 75 / 75 Balance -125 / -125 -34915 / -75390 345 / 345 Medical Nutrition Assessment Dietitian: Malnutrition Criteria Met Start: 11/25/20 17:20 Freq: Status: Active Protocol: Document 11/25/20 17:32 SHARAD (Rec: 11/25/20 17:32 SHARAD [id number]) Nutrition Malnutrition Evidence of Malnutrition Exists No Intake Problem Inadequate Oral Intake Etiology related to nausea Signs/Symptoms as evidenced by poor po intake x 2 wks prior to admission. Status Active Problem Clinical Problem Altered Nutrient-Related Laboratory Values Etiology related to renal/endocrine dysfunction Signs/Symptoms as evidenced by Na 134, K 2.7, Cr 2.33, gluc 118 Status Active Problem Recommendation Dietitian Recommendations/Changes Will change diet to Consistent CHO/ Sodium Restriction / 1500 ml fluid/day Will provide 120 ml Nepro CHO Steady w/ meals for increased nutrition if consumed Lab / Micro Data Result Diagrams: 12/01/20 05:30 12/01/20 05:30 Labs: Laboratory Results - last 24 hr 11/30/20 05:00: Total Bilirubin 3.00 H, Direct Bilirubin 2.58 H, AST 68 H, ALT 30, Alkaline Phosphatase 864 H, Total Protein 7.5, Albumin 2.2 L, Globulin 5.3 H 08/19/21 05:30: WBC 13.0 H, RBC 3.50 L, Hgb 10.0 L, Hct 31.0 L, MCV 88.6, MCH 28.6, MCHC 32.3, RDW Std Deviation 65.7 H, RDW Coeff of Grazyna 20.9 H, Plt Count 318, MPV 11.1, Immature Gran % (Auto) 0.800, Neut % (Auto) 71.8 H, Lymph % (Auto) 10.1 L, [place] % (Auto) 15.0 H, Eos % (Auto) 1.5, Baso % (Auto) 0.8, Absolute Neuts (auto) 9.4 H, Absolute Lymphs (auto) 1.32, Nucleated RBC % 0, Differential Comment SCANNED, Diff Path Review Reviewed, Anisocytosis 1+, Microcytosis RARE, Macrocytosis RARE, Target Cells 1+ 12/01/20 05:30: Sodium 130 L, Potassium 3.8, Chloride 95 L, Carbon Dioxide 28.0, Anion Gap 7, BUN 20 H, Creatinine 3.44 H, Estim Creat Clear Calc 17.72, Est GFR (MDRD) Af Amer 17 L, Est GFR (MDRD) Non-Af 14 L, BUN/Creatinine Ratio 5.8 L, Glucose 123 H, Calcium 8.4 L 12/01/20 05:30: Total Bilirubin 2.50 H, Direct Bilirubin 2.04 H, AST 48 H, ALT 25, Alkaline Phosphatase 850 H, Total Protein 7.7, Albumin 2.1 L, Globulin 5.6 H 12/01/20 11:46: POC Glucose 181 H Micro: Microbiology 11/28/20 08:22 Blood Culture (Wb) - Left Hand Blood Culture - Preliminary No growth in 48 hours. 11/28/20 08:28 Blood Culture (Wb) - Left Forearm Blood Culture - Preliminary No growth in 48 hours. 11/25/20 12:02 Mucosa - Nose SARS-CoV-2 Antigen (Rapid) - Final Radiography Diagnostic Testing: Radiology Impression Paracentesis Ultrasound 11/30/20 09:30 IMPRESSION: Ultrasound guided paracentesis. Electronically Signed: Micah Zelaya MD at 12:30 EDT , Service support , Assessment & Plan Assessment/Plan (1) Gallbladder sludge: (2) Elevated liver enzymes: PLAN: Patient has persistent elevation in her liver enzymes. We will coordinate getting an MRCP on her tomorrow and then follow that up with dialysis to see if there is anything going on within the biliary system. With her being asymptomatic unlikely that we are going to need to remove her gallbladder at this time.
[2020-12-01 22:06] LABS: Bedside Glucose 252 mg/dL (70-110)
[2020-12-01] MEDS: Morphine 2 MG/ML Syringe IV (22:27)
[2020-12-01] MEDS: Albuterol 2.5 MG/3 ML VIAL.NEB. INHALATION (22:45)
--- NOTE | 2020-12-01 23:00 | NURSING ---
PATIENT BLADDER SCANNED FOR 19CC PRE-PAUL DISCONTINUED.
[2020-12-02] VITALS (16 sets, daily range): BP systolic 102–126; BP diastolic 40–65; PULSE 68–86; RESP 16–18; TEMP 36.4–37.3; O2SAT 88–94
[2020-12-02] MEDS: hydrOXYzine PAM 25 MG Capsule PO ×3 (05:49→21:36)
[2020-12-02 06:18] LABS: Absolute Neutrophil Count 11.4 X10^3/uL (2.0-7.7); Basophil# 0.12 X10^3/uL; Basophil% 0.8 % (0-1); Eosinophil# 0.34 X10^3/uL; Eosinophils% 2.2 % (0-5); Hematocrit 30.1 % (37-47); Hemoglobin 10.1 g/dL (12.0-15.0); Lymphocyte % 10.2 % (19-41); Mean Corp Hgb Conc 33.6 g/dL (32-36); Mean Corpuscular Hgb 29.2 pg (27.0-32.0); Mean Platelet Vol. 10.9 fl (6.2-12.0); Monocyte# 2.09 X10^3/uL; Monocyte% 13.3 % (0-10); NRBC Flagged by Analyzer 0 % (0-5); Neutrophil # 11.38 X10^3/uL (2.7-7.7); Neutrophil % 72.7 % (47-70); POSITIVE DIFFERENTIAL YES; POSITIVE MORPHOLOGY YES; Platelet Count 340 K/mm3 (150-450); RBC Distribution Width CV 20.7 % (11.6-14.6); RBC Distribution Width SD 63.4 fl (35.1-43.9); Red Blood Count 3.46 M/mm3 (4.2-5.4); White Blood Count 15.7 K/mm3 (4.4-11.0)
[2020-12-02 06:33] LABS: Differential Indicated SCAN CRITERIA MET
[2020-12-02 06:38] LABS: Anisocytosis RARE; Differential Comment SCANNED; Macrocytosis RARE; Target Cells RARE
[2020-12-02 06:46] LABS: Bedside Glucose 170 mg/dL (70-110)
[2020-12-02] MEDS: Albuterol 2.5 MG/3 ML VIAL.NEB. INHALATION ×2 (06:47→11:41)
[2020-12-02 06:51] LABS: AST(SGOT) 28 U/L (15-37); Alanine Aminotransfer ALT/SGPT 22 U/L (13-56); Albumin, Serum 2.1 g/dL (3.2-5.0); Alkaline Phosphatase 799 U/L (45-117); Anion Gap 10 (5-15); BUN 34 mg/dL (7-18); BUN/Creat Ratio 7.2 RATIO (10-20); Bilirubin, Direct 1.91 mg/dL (0.00-0.30); Chloride 93 mmol/L (98-107); Creatinine, Serum 4.73 mg/dL (0.55-1.02); EST Glomerular Filtration Rate 10 mL/min (>60); Est Glom Filt Rate - Afr Amer 12 mL/min (>60); Estimated Creatinine Clearance 12.89 ml/min; Globulin 5.6 g/dL (2.2-4.2); Glucose 174 mg/dL (74-106); Potassium 4.2 mmol/L (3.5-5.1); Protein, Total 7.7 g/dL (6.4-8.2); Sodium Level 128 mmol/L (136-145)
--- NOTE | 2020-12-02 09:21 | PN.RENAL_ITS ---
Subjective Subjective Going for MRCP today. Complaining of shortness of breath but mild. No chest pain. No nausea no vomiting Objective Data Objective Data Vital Signs: Vital Signs Temp Pulse Resp BP Pulse Ox 98.1 F 71 18 120/44 L 93 12/02/20 02:45 12/02/20 07:00 12/02/20 02:45 12/02/20 02:45 12/02/20 02:45 Oxygen Flow Rate (L/min) [3] 3 Oxygen Flow Rate (L/min) [2] 3 Oxygen Flow Rate (L/min) 3 Oxygen Delivery Method [3] Nasal Cannula Oxygen Delivery Method [2] Nasal Cannula Oxygen Delivery Method [1 ( Room Air Initial Baseline)] Oxygen Delivery Method Nasal Cannula Weight: 83.5 kg Body Mass Index (BMI) 29.5 Intake & Output: Intake and Output for Last 24 Hours 11/30/20 12/01/20 12/02/20 23:59 23:59 23:59 Intake Total 370 / 490 710 / 710 300 / 300 Output Total 69181 / 92872 100 / 100 Balance -85810 / -20143 610 / 610 300 / 300 Medical Nutrition Assessment Dietitian: Malnutrition Criteria Met Start: 11/25/20 17:20 Freq: Status: Active Protocol: Document 11/25/20 17:32 SHARAD (Rec: 11/25/20 17:32 SLA [id number]) Nutrition Malnutrition Evidence of Malnutrition Exists No Intake Problem Inadequate Oral Intake Etiology related to nausea Signs/Symptoms as evidenced by poor po intake x 2 wks prior to admission. Status Active Problem Clinical Problem Altered Nutrient-Related Laboratory Values Etiology related to renal/endocrine dysfunction Signs/Symptoms as evidenced by Na 134, K 2.7, Cr 2.33, gluc 118 Status Active Problem Recommendation Dietitian Recommendations/Changes Will change diet to Consistent CHO/ Sodium Restriction / 1500 ml fluid/day Will provide 120 ml Nepro CHO Steady w/ meals for increased nutrition if consumed Lab / Micro Data Result Diagrams: 12/02/20 05:44 12/02/20 05:44 Labs: Laboratory Results - last 24 hr 12/01/20 05:30: Diff Path Review Reviewed 12/01/20 11:46: POC Glucose 181 H 12/01/20 20:53: POC Glucose 252 H 12/02/20 05:44: WBC 15.7 H, RBC 3.46 L, Hgb 10.1 L, Hct 30.1 L, MCV 87.0, MCH 29.2, MCHC 33.6, RDW Std Deviation 63.4 H, RDW Coeff of Grazyna 20.7 H, Plt Count 340, MPV 10.9, Immature Gran % (Auto) 0.800, Neut % (Auto) 72.7 H, Lymph % (Auto) 10.2 L, [place] % (Auto) 13.3 H, Eos % (Auto) 2.2, Baso % (Auto) 0.8, Absolute Neuts (auto) 11.4 H, Absolute Lymphs (auto) 1.60, Nucleated RBC % 0, Differential Comment SCANNED, Diff Path Review May foll, Anisocytosis RARE, Mac rocytosis RARE, Target Cells RARE 12/02/20 05:44: Sodium 128 L, Potassium 4.2, Chloride 93 L, Carbon Dioxide 25.0, Anion Gap 10, BUN 34 H, Creatinine 4.73 H, Estim Creat Clear Calc 12.89, Est GFR (MDRD) Af Amer 12 L, Est GFR (MDRD) Non-Af 10 L, BUN/Creatinine Ratio 7.2 L, Glucose 174 H, Calcium 9.0, Total Bilirubin 2.60 H, Direct Bilirubin 1.91 H, AST 28, ALT 22, Alkaline Phosphatase 799 H, Total Protein 7.7, Albumin 2.1 L, Globulin 5.6 H 12/02/20 06:25: POC Glucose 170 H Micro: Microbiology 11/28/20 08:22 Blood Culture (Wb) - Left Hand Blood Culture - Preliminary No growth in 48 hours. 11/28/20 08:28 Blood Culture (Wb) - Left Forearm Blood Culture - Preliminary No growth in 48 hours. 11/25/20 12:02 Mucosa - Nose SARS-CoV-2 Antigen (Rapid) - Final Physical Exam Narrative General: Alert and oriented x3 in no apparent distress. HEENT: Normocephalic, atraumatic. Mucous membrane moist without erythema. Neck: Supple. Heart: Normal S1, S2. No rubs or murmurs. Lungs: Clear to auscultation bilaterally. Abdomen: Normal bowel sounds, soft, nontender, no guarding or rebound. Extremity: Trace edema in the lower extremities. No clubbing or cyanosis. Assessment & Plan Assessment/Plan (1) ESRD (end stage renal disease) on dialysis: PLAN: The patient usually dialyzes on a Saturday, Saturday and Saturday schedule at [facility]. She is followed there by Dr. Glynn. We will plan for hemodialysis today with 3 L ultrafiltration HD access RUE access (2) Anemia: PLAN: Hemoglobin is at goal for dialysis patient. . (3) HTN (hypertension): PLAN: Continue holding hydralazine Still with low DBP Will monitor blood pressure with ultrafiltration (4) CHF exacerbation: QUALIFIERS: Heart failure type: unspecified Qualified Code(s): I50.9 - Heart failure, unspecified PLAN: Clinically improved after ultrafiltration . UF as tolerated with HD session. (5) Hyponatremia: PLAN: Likely from fluid overload. Keep O>I. We will aim for 3 L ultrafiltration today Monitor Na level (6) Elevated liver enzymes: PLAN: Patient is going for MRCP today. We will plan hemodialysis after MRCP
[2020-12-02] MEDS: Furosemide 40 MG/4 ML Vial IV ×2 (10:04→17:54)
[2020-12-02] MEDS: Pantoprazole Sodium 40 MG Tablet PO (10:04)
[2020-12-02] MEDS: Aspirin E.C. 81 MG Tablet PO (10:04)
[2020-12-02] MEDS: Cholecalciferol (VIT D3) 25 MCG TABLET (1,000 UNITS) 125 MCG PO (10:05)
[2020-12-02] MEDS: Ascorbic Acid 500 MG Tablet PO (10:05)
[2020-12-02] MEDS: Heparin Injection (Vial) 5,000 UNIT/ML VIAL 5000 UNIT SC ×2 (10:15→21:36)
[2020-12-02 10:25] LABS: Bedside Glucose 200 mg/dL (70-110)
--- NOTE | 2020-12-02 11:23 | PN.HOSP_ITS ---
Subjective Subjective Patient seen and examined. She feels weaker and a bit more short of breath today. It is a dialysis day today. She also complained of some jerking motions, mainly of her upper extremities. Review of systems otherwise negative. She has otherwise remained hemodynamically stable. Objective Data Objective Data Vital Signs: Vital Signs Temp Pulse Resp BP Pulse Ox 98.2 F 68 18 102/55 L 94 12/02/20 08:45 12/02/20 11:00 12/02/20 08:45 12/02/20 10:11 12/02/20 08:45 Oxygen Flow Rate (L/min) [3] 3 Oxygen Flow Rate (L/min) [2] 3 Oxygen Flow Rate (L/min) 3 Oxygen Delivery Method [3] Nasal Cannula Oxygen Delivery Method [2] Nasal Cannula Oxygen Delivery Method [1 ( Room Air Initial Baseline)] Oxygen Delivery Method Nasal Cannula Weight: 184 lb 1.376 oz Body Mass Index (BMI) 29.5 Intake & Output: Intake and Output for Last 24 Hours 11/30/20 12/01/20 12/02/20 23:59 23:59 23:59 Intake Total 370 / 490 710 / 710 300 / 300 Output Total 16645 / 76328 100 / 100 Balance -56476 / -04739 610 / 610 300 / 300 Medical Nutrition Assessment Dietitian: Malnutrition Criteria Met Start: 11/25/20 17:20 Freq: Status: Active Protocol: Document 11/25/20 17:32 SHARAD (Rec: 11/25/20 17:32 SHARAD [id number]) Nutrition Malnutrition Evidence of Malnutrition Exists No Intake Problem Inadequate Oral Intake Etiology related to nausea Signs/Symptoms as evidenced by poor po intake x 2 wks prior to admission. Status Active Problem Clinical Problem Altered Nutrient-Related Laboratory Values Etiology related to renal/endocrine dysfunction Signs/Symptoms as evidenced by Na 134, K 2.7, Cr 2.33, gluc 118 Status Active Problem Recommendation Dietitian Recommendations/Changes Will change diet to Consistent CHO/ Sodium Restriction / 1500 ml fluid/day Will provide 120 ml Nepro CHO Steady w/ meals for increased nutrition if consumed Lab / Micro Data Result Diagrams: 12/02/20 05:44 12/02/20 05:44 Labs: Laboratory Results - last 24 hr 12/01/20 05:30: Diff Path Review Reviewed 12/01/20 11:46: POC Glucose 181 H 12/01/20 20:53: POC Glucose 252 H 12/02/20 05:44: WBC 15.7 H, RBC 3.46 L, Hgb 10.1 L, Hct 30.1 L, MCV 87.0, MCH 29.2, MCHC 33.6, RDW Std Deviation 63.4 H, RDW Coeff of Grazyna 20.7 H, Plt Count 340, MPV 10.9, Immature Gran % (Auto) 0.800, Neut % (Auto) 72.7 H, Lymph % (Auto) 10.2 L, [place] % (Auto) 13.3 H, Eos % (Auto) 2.2, Baso % (Auto) 0.8, Absolute Neuts (auto) 11.4 H, Absolute Lymphs (auto) 1.60, Nucleated RBC % 0, Di fferential Comment SCANNED, Diff Path Review May foll, Anisocytosis RARE, Macrocytosis RARE, Target Cells RARE 12/02/20 05:44: Sodium 128 L, Potassium 4.2, Chloride 93 L, Carbon Dioxide 25.0, Anion Gap 10, BUN 34 H, Creatinine 4.73 H, Estim Creat Clear Calc 12.89, Est GFR (MDRD) Af Amer 12 L, Est GFR (MDRD) Non-Af 10 L, BUN/Creatinine Ratio 7.2 L, Glucose 174 H, Calcium 9.0, Total Bilirubin 2.60 H, Direct Bilirubin 1.91 H, AST 28, ALT 22, Alkaline Phosphatase 799 H, Total Protein 7.7, Albumin 2.1 L, Globulin 5.6 H 12/02/20 06:25: POC Glucose 170 H 12/02/20 09:55: POC Glucose 200 H Micro: Microbiology 11/28/20 08:22 Blood Culture (Wb) - Left Hand Blood Culture - Preliminary No growth in 48 hours. 11/28/20 08:28 Blood Culture (Wb) - Left Forearm Blood Culture - Preliminary No growth in 48 hours. 11/25/20 12:02 Mucosa - Nose SARS-CoV-2 Antigen (Rapid) - Final Physical Exam Const alert, oriented x3 and no apparent distress Constitutional Narrative: still looks weak. Exam Limitations: no limitations HEENT head/scalp atraumatic, moist oral mucous membranes and oropharynx normal Head and Scalp: normocephalic Eyes PERRL, EOMs intact bilaterally and conjunctivae normal Neck no lymphadenopathy Resp Resp Narrative: diminished breath sounds bibasally, no wheezes or crackles. on 3L of oxygen. Cardio regular rate, regular rhythm, S1 normal heart sound, S2 normal heart sound and no murmurs GI normal to inspection, nondistended, normoactive bowel sounds, soft to palpation, non-tender and non-distended Extremity normal to inspection and full ROM Extremity Narrative: AV fistula with good thrill in LUE;pedal edema has improved Peripheral Pulses: Yes pulses 2+ throughout Skin no rashes or lesions noted Neuro oriented x3, CN's II-XII intact bilaterally and moves all extremities Sensorium / Orientation: awake and alert Psych affect normal Assessment & Plan Assessment/Plan (1) ESRD (end stage renal disease) on dialysis: (2) CHF exacerbation: QUALIFIERS: Heart failure type: unspecified Qualified Code(s): I50.9 - Heart failure, unspecified (3) Hypoxia: PLAN: #acute on chronic heart failure with preserved EF * on oral lasix. * nephrology on board for diuresis. * monitor intake and output. Fluid restriction to 1500cc daily. * s/p thoracentesis with removal of 400cc of fluid, analysis of which shows its a transudate. * #Elevated liver enzymes * liver enzymes still remain elevated, but are trending down. total bilirubin is 2.6 today, with direct bilirubin of 1.91 * ALP remains markedly elevated. Its 799 today. * gallbladder USG showed mild hepatomegaly and diffuse fatty infiltration of the liver, with sludge in the gallbladder lumen. * general surgery consulted; doesnt think it is acute cholecystitis and ruled out any acute gallbladder pathology * HIDA scan done showed non-visualisation of the gallbladder. * I did discuss this again with Dr Valentino, who doesnt think the elevated liver enzymes are due to a gallbladder pathology * for MRCP of the abdomen today to rule out any obstructive biliary pathology * #Chronic respiratory failure * due to heart failure and right pleural effusion. * on 2L of oxygen at home; currently on 3L of oxygen. * #Right sided pleural effusion * s/p thoracentesis, analysis of which showed it was a transudative effusion. * #Ascites * as per CT scan. This may be due to ESRD. * also has elevated liver enzymes; * had paracentesis today with removal of 2.25L of fluid. * no evidence of infection and negative for any malignant cells. #Hypokalemia:resolved. #ESRD on hemodialysis * has dialysis MWF. * nephrology on board. * #CAD: s/p stents. on aspirin, statin and metoprolol. #History of Mitral ema regurgitation; stable #Hypertension; on metoprolol and hydralazine. #Hyperlipidemia: on statin #paroxysmal afib: on metoprolol. Eliquis on hold due to history of nose bleeds. #GERD: on PPI DVT prophylaxis: heparin Disposition: will need placement. Case management on board. She received precert for the [facility], which is good for 7 days, starting today. Charges/Coding Visit Charges Inpatient E&M: 41494 Subs Hosp L2
[2020-12-02 12:16] LABS: Bedside Glucose 188 mg/dL (70-110)
--- NOTE | 2020-12-02 12:59 | CASEMGMT ---
Per jaleesa Patton RN, pt needs MRI of abd but pt has a pacemaker and the pacer rep has to be here during the MRI and they are not able to be here until 12/05/20. Pt will be here thru the weekend. Reed PRAKASH CM
--- NOTE | 2020-12-02 13:21 | PCM.PN.SRG ---
Subjective Subjective Tolerating p.o. Not having any pain with eating. Objective Data Objective Data No tenderness in the right upper quadrant. Slight tenderness in the midclavicular line in the upper abdomen on the left no rebound guarding or peritoneal signs are identified Vital Signs: Vital Signs Temp Pulse Resp BP Pulse Ox 98.2 F 68 18 102/55 L 94 12/02/20 08:45 12/02/20 11:00 12/02/20 08:45 12/02/20 10:11 12/02/20 08:45 Oxygen Flow Rate (L/min) [3] 3 Oxygen Flow Rate (L/min) [2] 3 Oxygen Flow Rate (L/min) 3 Oxygen Delivery Method [3] Nasal Cannula Oxygen Delivery Method [2] Nasal Cannula Oxygen Delivery Method [1 ( Room Air Initial Baseline)] Oxygen Delivery Method Nasal Cannula Weight: 184 lb 1.376 oz Body Mass Index (BMI) 29.5 Intake & Output: Intake and Output for Last 24 Hours 11/30/20 12/01/20 12/02/20 23:59 23:59 23:59 Intake Total 370 / 490 710 / 710 420 / 420 Output Total 82882 / 22149 100 / 100 Balance -70457 / -56476 610 / 610 420 / 420 Medical Nutrition Assessment Dietitian: Malnutrition Criteria Met Start: 11/25/20 17:20 Freq: Status: Active Protocol: Document 11/25/20 17:32 SHARAD (Rec: 11/25/20 17:32 SHARAD [id number]) Nutrition Malnutrition Evidence of Malnutrition Exists No Intake Problem Inadequate Oral Intake Etiology related to nausea Signs/Symptoms as evidenced by poor po intake x 2 wks prior to admission. Status Active Problem Clinical Problem Altered Nutrient-Related Laboratory Values Etiology related to renal/endocrine dysfunction Signs/Symptoms as evidenced by Na 134, K 2.7, Cr 2.33, gluc 118 Status Active Problem Recommendation Dietitian Recommendations/Changes Will change diet to Consistent CHO/ Sodium Restriction / 1500 ml fluid/day Will provide 120 ml Nepro CHO Steady w/ meals for increased nutrition if consumed Lab / Micro Data Result Diagrams: 12/02/20 05:44 12/02/20 05:44 Labs: Laboratory Results - last 24 hr 12/01/20 20:53: POC Glucose 252 H 12/02/20 05:44: WBC 15.7 H, RBC 3.46 L, Hgb 10.1 L, Hct 30.1 L, MCV 87.0, MCH 29.2, MCHC 33.6, RDW Std Deviation 63.4 H, RDW Coeff of Grazyna 20.7 H, Plt Count 340, MPV 10.9, Immature Gran % (Auto) 0.800, Neut % (Auto) 72.7 H, Lymph % (Auto) 10.2 L, [place] % (Auto) 13.3 H, Eos % (Auto) 2.2, Baso % (Auto) 0.8, Absolute Neuts (auto) 11.4 H, Absolute Lymphs (auto) 1.60, Nucleated RBC % 0, Differential Comment SCANNED, Diff Path Review May foll, Anisocytosis RARE, Macrocytosis RARE, Target Cells RARE 12/02/20 05:44: Sodium 128 L, Potassium 4.2, Chloride 93 L, Carbon Dioxide 25.0, Anion Gap 10, BUN 34 H, Creatinine 4.73 H, Estim Creat Clear Calc 12.89, Est GFR (MDRD) Af Amer 12 L, Est GFR (MDRD) Non-Af 10 L, BUN/Creatinine Ratio 7.2 L, Glucose 174 H, Calcium 9.0, Total Bilirubin 2.60 H, Direct Bilirubin 1.91 H, AST 28, ALT 22, Alkaline Phosphatase 799 H, Total Protein 7.7, Albumin 2.1 L, Globulin 5.6 H 12/02/20 06:25: POC Glucose 170 H 12/02/20 09:55: POC Glucose 200 H 12/02/20 11:58: POC Glucose 188 H Micro: Microbiology 11/28/20 08:22 Blood Culture (Wb) - Left Hand Blood Culture - Preliminary No growth in 48 hours. 11/28/20 08:28 Blood Culture (Wb) - Left Forearm Blood Culture - Preliminary No growth in 48 hours. 11/25/20 12:02 Mucosa - Nose SARS-CoV-2 Antigen (Rapid) - Final Assessment & Plan Assessment/Plan (1) Elevated liver enzymes: (2) Gallbladder sludge: PLAN: MRCP to be done on Saturday. It can be done now without contrast. No surgical interventions planned at this time. Doubt patient has acute cholecystitis without pain and tolerating p.o.
[2020-12-02 14:06] LABS: Pathologist Review Reviewed
--- NOTE | 2020-12-02 14:54 | CASEMGMT ---
SW received a call from [facility] at [facility] and patient was approved. SW let her know patient is not ready. SW told her it may not be until Saturday. Patient's pre-cert is good for 7 days from today. SW notified patient she was approved and will go when she is ready. She thanked JINA for the update. Plan: [facility] [place] when medically ready. Insurance has approved her and it will be good for 7 days from today. Ana Wilson [employer]
--- NOTE | 2020-12-02 17:35 | DIALYSIS ---
2 hours and 45 minutes completed of hemodialysis. Pt refused to complete whole treatment d/t wanting to go into restroom. Encouraged pt to use bedpan, however pt refused. Benefits of completing entire dialysis treatment explained. 3 liters fluid removed. [place] removed from fistula after blood returned. Pt tolerated the treatment she had without difficulty.
[2020-12-02] MEDS: 0.9% Saline Lock 10 ML Syringe IV (17:55)
[2020-12-02 18:15] LABS: Bedside Glucose 241 mg/dL (70-110)
[2020-12-02] MEDS: Morphine 2 MG/ML Syringe IV (18:15)
[2020-12-02] MEDS: Metoprolol(XL)Succ 50 MG Tablet PO (21:36)
[2020-12-02 21:51] LABS: Bedside Glucose 230 mg/dL (70-110)
[2020-12-02 21:51] LABS: Bedside Glucose 229 mg/dL (70-110)
[2020-12-03] VITALS (13 sets, daily range): BP systolic 132–141; BP diastolic 47–51; PULSE 73–84; RESP 16–18; TEMP 36.6–36.9; O2SAT 92–96
[2020-12-03] MEDS: hydrOXYzine PAM 25 MG Capsule PO ×3 (06:40→21:04)
[2020-12-03 06:46] LABS: Bedside Glucose 131 mg/dL (70-110)
[2020-12-03] MEDS: Albuterol 2.5 MG/3 ML VIAL.NEB. INHALATION ×2 (06:51→12:58)
[2020-12-03 06:56] LABS: Absolute Neutrophil Count 11.8 X10^3/uL (2.0-7.7); Basophil% 0.6 % (0-1); Eosinophil# 0.36 X10^3/uL; Eosinophils% 2.2 % (0-5); Hematocrit 30.2 % (37-47); Hemoglobin 9.8 g/dL (12.0-15.0); Lymphocyte % 9.2 % (19-41); Mean Corp Hgb Conc 32.5 g/dL (32-36); Mean Corpuscular Hgb 28.3 pg (27.0-32.0); Mean Corpuscular Volume 87.3 fL (81-99); Mean Platelet Vol. 10.7 fl (6.2-12.0); Monocyte# 2.19 X10^3/uL; Monocyte% 13.5 % (0-10); NRBC Flagged by Analyzer 0.1 % (0-5); Neutrophil # 11.76 X10^3/uL (2.7-7.7); Neutrophil % 72.6 % (47-70); POSITIVE DIFFERENTIAL YES; POSITIVE MORPHOLOGY YES; Platelet Count 378 K/mm3 (150-450); RBC Distribution Width CV 21.2 % (11.6-14.6); RBC Distribution Width SD 63.6 fl (35.1-43.9); Red Blood Count 3.46 M/mm3 (4.2-5.4); White Blood Count 16.2 K/mm3 (4.4-11.0)
[2020-12-03 07:27] LABS: Differential Indicated SCAN CRITERIA MET
[2020-12-03 07:32] LABS: AST(SGOT) 21 U/L (15-37); Alanine Aminotransfer ALT/SGPT 19 U/L (13-56); Alkaline Phosphatase 735 U/L (45-117); Anion Gap 9 (5-15); BUN 25 mg/dL (7-18); BUN/Creat Ratio 6.6 RATIO (10-20); Bilirubin, Direct 1.59 mg/dL (0.00-0.30); Calcium,Total 8.8 mg/dL (8.5-10.1); Chloride 95 mmol/L (98-107); Creatinine, Serum 3.81 mg/dL (0.55-1.02); EST Glomerular Filtration Rate 13 mL/min (>60); Est Glom Filt Rate - Afr Amer 15 mL/min (>60); Globulin 5.8 g/dL (2.2-4.2); Glucose 131 mg/dL (74-106); Potassium 3.9 mmol/L (3.5-5.1); Protein, Total 7.8 g/dL (6.4-8.2); Sodium Level 132 mmol/L (136-145)
[2020-12-03] MEDS: Cholecalciferol (VIT D3) 25 MCG TABLET (1,000 UNITS) 125 MCG PO (08:37)
[2020-12-03] MEDS: Furosemide 40 MG/4 ML Vial IV ×2 (08:37→17:52)
[2020-12-03] MEDS: Pantoprazole Sodium 40 MG Tablet PO (08:37)
[2020-12-03] MEDS: Aspirin E.C. 81 MG Tablet PO (08:37)
[2020-12-03] MEDS: Ascorbic Acid 500 MG Tablet PO (08:38)
[2020-12-03] MEDS: Heparin Injection (Vial) 5,000 UNIT/ML VIAL 5000 UNIT SC ×2 (08:38→21:02)
[2020-12-03] MEDS: Metoprolol(XL)Succ 50 MG Tablet PO ×2 (08:40→21:03)
[2020-12-03] MEDS: 0.9% Saline Lock 10 ML Syringe IV ×4 (08:43→22:13)
[2020-12-03] MEDS: Senna/Docusate Sodium 1 Tablet 2 TABLET PO (08:48)
[2020-12-03 09:51] LABS: Bedside Glucose 134 mg/dL (70-110)
--- NOTE | 2020-12-03 10:42 | PN.RENAL_ITS ---
Subjective Subjective Patient is feeling good. No nausea no vomiting no shortness of breath Objective Data Objective Data Vital Signs: Vital Signs Temp Pulse Resp BP Pulse Ox 98.1 F 83 18 135/51 H 93 12/03/20 08:45 12/03/20 08:45 12/03/20 08:45 12/03/20 08:45 12/03/20 08:45 Oxygen Flow Rate (L/min) [3] 3 Oxygen Flow Rate (L/min) [2] 3 Oxygen Flow Rate (L/min) 4 Oxygen Delivery Method [3] Nasal Cannula Oxygen Delivery Method [2] Nasal Cannula Oxygen Delivery Method [1 ( Room Air Initial Baseline)] Oxygen Delivery Method Nasal Cannula Weight: 81.2 kg Body Mass Index (BMI) 29.5 Intake & Output: Intake and Output for Last 24 Hours 12/01/20 12/02/20 12/03/20 23:59 23:59 23:59 Intake Total 710 / 710 660 / 780 120 / 120 Output Total 100 / 100 3000 / 3000 0 / 0 Balance 610 / 610 -2340 / -2220 120 / 120 Medical Nutrition Assessment Dietitian: Malnutrition Criteria Met Start: 11/25/20 17:20 Freq: Status: Active Protocol: Document 11/25/20 17:32 SHARAD (Rec: 11/25/20 17:32 SLA [id number]) Nutrition Malnutrition Evidence of Malnutrition Exists No Intake Problem Inadequate Oral Intake Etiology related to nausea Signs/Symptoms as evidenced by poor po intake x 2 wks prior to admission. Status Active Problem Clinical Problem Altered Nutrient-Related Laboratory Values Etiology related to renal/endocrine dysfunction Signs/Symptoms as evidenced by Na 134, K 2.7, Cr 2.33, gluc 118 Status Active Problem Recommendation Dietitian Recommendations/Changes Will change diet to Consistent CHO/ Sodium Restriction / 1500 ml fluid/day Will provide 120 ml Nepro CHO Steady w/ meals for increased nutrition if consumed Lab / Micro Data Result Diagrams: 12/03/20 06:35 12/03/20 06:35 Labs: Laboratory Results - last 24 hr 12/02/20 05:44: Diff Path Review Reviewed 12/02/20 11:58: POC Glucose 188 H 12/02/20 18:01: POC Glucose 241 H 12/02/20 21:19: POC Glucose 230 H 12/02/20 21:43: POC Glucose 229 H 12/03/20 06:35: Sodium 132 L, Potassium 3.9, Chloride 95 L, Carbon Dioxide 28.0, Anion Gap 9, BUN 25 H, Creatinine 3.81 H, Estim Creat Clear Calc 16.00, Est GFR (MDRD) Af Amer 15 L, Est GFR (MDRD) Non-Af 13 L, BUN/Creatinine Ratio 6.6 L, Glucose 131 H, Calcium 8.8, Total Bilirubin 2.20 H, Direct Bilirubin 1.59 H, AST 21, ALT 19, Alkaline Phosphatase 735 H, Total Protein 7.8, Albumin 2.0 L, Globulin 5.8 H 12/03/20 06:35: WBC 16.2 H, RBC 3.46 L, Hgb 9.8 L, Hct 30.2 L, MCV 87.3, MCH 28.3, MCHC 32.5, RDW Std Deviation 63.6 H, RDW Coeff of Grazyna 21.2 H, Plt Count 378, MPV 10.7, Immature Gran % (Auto) 1.900 H, Neut % (Auto) 72.6 H, Lymph % (Auto) 9.2 L, [place] % (Auto) 13.5 H, Eos % (Auto) 2.2, Baso % (Auto) 0.6, Absolute Neuts (auto) 11.8 H, Absolute Lymphs (auto) 1.50, Nucleated RBC % 0.1 12/03/20 06:37: POC Glucose 131 H 12/03/20 09:44: POC Glucose 134 H Micro: Microbiology 11/28/20 08:28 Blood Culture (Wb) - Left Forearm Blood Culture - Final No growth in 5 days. 11/28/20 08:22 Blood Culture (Wb) - Left Hand Blood Culture - Final No growth in 5 days. 11/25/20 12:02 Mucosa - Nose SARS-CoV-2 Antigen (Rapid) - Final Physical Exam Narrative General: Alert and oriented x3 in no apparent distress. HEENT: Normocephalic, atraumatic. Mucous membrane moist without erythema. Neck: Supple. Heart: Normal S1, S2. No rubs or murmurs. Lungs: Clear to auscultation bilaterally. Abdomen: Normal bowel sounds, soft, nontender, no guarding or rebound. Extremity: Trace edema in the lower extremities. No clubbing or cyanosis. Assessment & Plan Assessment/Plan (1) ESRD (end stage renal disease) on dialysis: PLAN: The patient usually dialyzes on a Saturday, Saturday and Saturday schedule at [facility]. She is followed there by Dr. Glynn. Last hemodialysis session was yesterday. We will plan for hemodialysis patient again Saturday HD access RUE access (2) Anemia: PLAN: Hemoglobin is at goal for dialysis patient. . (3) HTN (hypertension): PLAN: Continue holding hydralazine Still with low DBP Will monitor blood pressure with ultrafiltration (4) CHF exacerbation: QUALIFIERS: Heart failure type: unspecified Qualified Code(s): I50.9 - Heart failure, unspecified PLAN: Clinically improved after ultrafiltration . UF as tolerated with HD session. (5) Hyponatremia: PLAN: Likely from fluid overload. Keep O>I. We will aim for 3 L ultrafiltration today Monitor Na level (6) Elevated liver enzymes: PLAN: Patient is going for MRCP Saturday. We will plan hemodialysis after MRCP
[2020-12-03 11:31] LABS: Bedside Glucose 103 mg/dL (70-110)
[2020-12-03 11:42] LABS: Differential Comment SCANNED
[2020-12-03 11:43] LABS: Anisocytosis 2+; Macrocytosis 1+; Microcytosis 1+
--- NOTE | 2020-12-03 14:28 | PN.HOSP_ITS ---
Subjective Subjective Patient states she is feeling much better. She notes improvement in her breathing and her lower extremity edema. She has been negative for more than 2 L in the last 24 hours given her dialysis yesterday. Objective Data Objective Data Vital Signs: Vital Signs Temp Pulse Resp BP Pulse Ox 98.1 F 74 16 135/51 H 93 12/03/20 08:45 12/03/20 12:58 12/03/20 12:58 12/03/20 08:45 12/03/20 08:45 Oxygen Flow Rate (L/min) [3] 3 Oxygen Flow Rate (L/min) [2] 3 Oxygen Flow Rate (L/min) 4 Oxygen Delivery Method [3] Nasal Cannula Oxygen Delivery Method [2] Nasal Cannula Oxygen Delivery Method [1 ( Room Air Initial Baseline)] Oxygen Delivery Method Nasal Cannula Weight: 81.2 kg Body Mass Index (BMI) 29.5 Intake & Output: Intake and Output for Last 24 Hours 12/01/20 12/02/20 12/03/20 23:59 23:59 23:59 Intake Total 710 / 710 660 / 780 480 / 480 Output Total 100 / 100 3000 / 3000 0 / 0 Balance 610 / 610 -2340 / -2220 480 / 480 Medical Nutrition Assessment Dietitian: Malnutrition Criteria Met Start: 11/25/20 17:20 Freq: Status: Active Protocol: Document 11/25/20 17:32 SHARAD (Rec: 11/25/20 17:32 SHARAD [id number]) Nutrition Malnutrition Evidence of Malnutrition Exists No Intake Problem Inadequate Oral Intake Etiology related to nausea Signs/Symptoms as evidenced by poor po intake x 2 wks prior to admission. Status Active Problem Clinical Problem Altered Nutrient-Related Laboratory Values Etiology related to renal/endocrine dysfunction Signs/Symptoms as evidenced by Na 134, K 2.7, Cr 2.33, gluc 118 Status Active Problem Recommendation Dietitian Recommendations/Changes Will change diet to Consistent CHO/ Sodium Restriction / 1500 ml fluid/day Will provide 120 ml Nepro CHO Steady w/ meals for increased nutrition if consumed Lab / Micro Data Result Diagrams: 12/03/20 06:35 12/03/20 06:35 Labs: Laboratory Results - last 24 hr 12/02/20 18:01: POC Glucose 241 H 12/02/20 21:19: POC Glucose 230 H 12/02/20 21:43: POC Glucose 229 H 12/03/20 06:35: Sodium 132 L, Potassium 3.9, Chloride 95 L, Carbon Dioxide 28.0, Anion Gap 9, BUN 25 H, Creatinine 3.81 H, Estim Creat Clear Calc 16.00, Est GFR (MDRD) Af Amer 15 L, Est GFR (MDRD) Non-Af 13 L, BUN/Creatinine Ratio 6.6 L, Glucose 131 H, Calcium 8.8, Total Bilirubin 2.20 H, Direct Bilirubin 1.59 H, AST 21, ALT 19, Alkaline Phosphatase 735 H, Total Protein 7.8, Albumin 2.0 L, Globulin 5.8 H 12/03/20 06:35: WBC 16.2 H, RBC 3.46 L, Hgb 9.8 L, Hct 30.2 L, MCV 87.3, MCH 28.3, MCHC 32.5, RDW Std Deviation 63.6 H, RDW Coeff of Grazyna 21.2 H, Plt Count 378, MPV 10.7, Immature Gran % (Auto) 1.900 H, Neut % (Auto) 72.6 H, Lymph % (Auto) 9.2 L, [place] % (Auto) 13.5 H, Eos % (Auto) 2.2, Baso % (Auto) 0.6, Absolute Neuts (auto) 11.8 H, Absolute Lymphs (auto) 1.50, Nucleated RBC % 0.1, Differential Comment SCANNED, Diff Path Review May foll, Anisocytosis 2+, Microcytosis 1+, Macrocytosis 1+ 12/03/20 06:37: POC Glucose 131 H 12/03/20 09:44: POC Glucose 134 H 12/03/20 11:22: POC Glucose 103 Micro: Microbiology 11/28/20 08:28 Blood Culture (Wb) - Left Forearm Blood Culture - Final No growth in 5 days. 11/28/20 08:22 Blood Culture (Wb) - Left Hand Blood Culture - Final No growth in 5 days. 11/25/20 12:02 Mucosa - Nose SARS-CoV-2 Antigen (Rapid) - Final Physical Exam Const alert, oriented x3 and no apparent distress Constitutional Narrative: Upper middle-aged white female who appears much older than stated age, sitting up in bed, currently on oxygen at 4 L-reports her baseline is 2 L, appears comfortable and nontoxic Exam Limitations: no limitations Nutritional Appearance: overweight HEENT head/scalp atraumatic and moist oral mucous membranes Head and Scalp: normocephalic Mouth: oral and palatal mucosa normal Resp normal respiratory effort, no retractions and no use of accessory muscles Resp Narrative: Bilateral basilar crackles-mild Auscultation: crackles; Negative for rales, rhonchi or wheezes Cardio regular rate and regular rhythm GI normal to inspection, nondistended, normoactive bowel sounds, soft to palpation, non-tender and non-distended Extremity Extremity Narrative: Trace bilateral lower extremity edema, no clubbing or cyanosis General Extremity: edema Peripheral Pulses: Yes pulses 2+ throughout Skin skin turgor normal, no jaundice, no petechiae and no mottling Skin Narrative: Pale skin Neuro oriented x3 and CN's II-XII intact bilaterally Sensorium / Orientation: awake and alert Speech: speech normal Psych affect normal Assessment & Plan Assessment/Plan (1) CHF exacerbation: QUALIFIERS: Heart failure type: unspecified Qualified Code(s): I50.9 - Heart failure, unspecified (2) Acute respiratory insufficiency: (3) Hyponatremia: (4) Elevated liver enzymes: (5) Gallbladder sludge: (6) ESRD (end stage renal disease) on dialysis: PLAN: Acute hypoxic respiratory insufficiency secondary to acute on chronic HFpEF -Baseline O2 requirement is 2 L -Patient does make some some urine so continue Lasix -Will likely switch to oral tomorrow -Continue dialysis per nephrology -Status post thoracentesis for pleural effusion -Continue to wean O2 as able Elevated liver enzymes -Alk phos and bilirubin remain elevated but improving slowly -Ultrasound of the gallbladder showed mild hepatomegaly with diffuse fatty infiltration and sludge in the gallbladder -General surgery was consulted and following but does not feel that this is acute cholecystitis -HIDA scan was done but showed nonvisualization of the gallbladder -MRCP pending for Saturday -Has pacemaker therefore awaiting rep to be present to perform Transudative right pleural effusion -Status post thoracentesis of 400 cc on 11/25/2020 -Repeat chest x-ray in a.m. Ascites -Likely related to persistent volume overload -Had paracentesis with removal of 2.25 L -Pathology negative for malignant cells Hypokalemia -Resolved End-stage renal disease on HD -Continue Saturday dialysis -Nephrology following Chronic anemia secondary to renal disease -Hemoglobin stable CAD/mitral valve regurgitation/hypertension/hyperlipidemia -History of stents -Continue aspirin, statin, beta-radhika, hydralazine -Continue Lasix PAF -Continue metoprolol -Patient currently in sinus rhythm -Had been on Eliquis previously but this is on hold secondary to epistaxis DM-2 -Continue home insulin pump -SSI -Accu-Cheks GERD -Continue PPI DVT prophylaxis -Continue heparin CODE STATUS -Full code Charges/Coding Visit Charges Inpatient E&M: 86097 Subs Hosp L2
[2020-12-03] MEDS: Psyllium 1 PACKET PO (15:10)
[2020-12-03] MEDS: Morphine 2 MG/ML Syringe IV (15:13)
[2020-12-03 16:26] LABS: Bedside Glucose 101 mg/dL (70-110)
[2020-12-03 22:00] LABS: Bedside Glucose 67 mg/dL (70-110)
[2020-12-03 22:00] LABS: Bedside Glucose 103 mg/dL (70-110)
[2020-12-03] MEDS: Dextrose 50%-Water 25 GM/50 ML DISP.SYRIN IV (22:12)
[2020-12-03 22:36] LABS: Bedside Glucose 52 mg/dL (70-110)
[2020-12-03 22:36] LABS: Bedside Glucose 104 mg/dL (70-110)
[2020-12-03] MEDS: Ondansetron 4 MG/2 ML Vial IV (22:45)
[2020-12-03 22:55] LABS: Bedside Glucose 75 mg/dL (70-110)
--- NOTE | 2020-12-03 22:56 | NURSING ---
Dr Rosales notified of current blood sugar states to recheck in 1 hour.
[2020-12-03 23:55] LABS: Bedside Glucose 82 mg/dL (70-110)
[2020-12-04] VITALS (14 sets, daily range): BP systolic 113–136; BP diastolic 49–61; PULSE 67–77; RESP 16–18; TEMP 36.4–36.6; O2SAT 89–96
[2020-12-04 00:51] LABS: Bedside Glucose 115 mg/dL (70-110)
[2020-12-04 03:36] LABS: Bedside Glucose 250 mg/dL (70-110)
--- NOTE | 2020-12-04 05:28 | RAD_ITS ---
STUDY: X-RAY CHEST REASON FOR EXAM: Female, 60 years old. Effusion TECHNIQUE: Portable, upright, and adrenals radiograph COMPARISON: 11/29/2020 FINDINGS: Left chest cardiac device, CABG, and atrial closure device noted. Left greater than right pleural effusions with overlying atelectasis. There is mild cardiac enlargement. Normal mediastinum and damaris. There is prominence of the pulmonary hilar arteries and peripheral pulmonary arteries, consistent with congestive heart failure (CHF). There is atherosclerotic calcification of the aortic arch with tortuosity. Normal visualized thoracic spine. Normal visualized ribs, clavicles, and shoulders. There is no demonstrated abnormality of the visualized soft tissue structures of the upper abdomen. RAD/Chest 1 View (Portable) IMPRESSION: Bilateral pleural effusions with overlying atelectasis, mildly increased compared to 11/29/2020. Electronically Signed: Jhony Clark MD at 6:02 EDT Tel , Service support ,
[2020-12-04] MEDS: hydrOXYzine PAM 25 MG Capsule PO ×3 (05:56→21:22)
[2020-12-04 06:10] LABS: Absolute Lymphocyte Count 1.42 X10^3/uL (0.83-4.51); Absolute Neutrophil Count 12.9 X10^3/uL (2.0-7.7); Basophil# 0.13 X10^3/uL; Basophil% 0.8 % (0-1); Eosinophils% 2.3 % (0-5); Hemoglobin 10.2 g/dL (12.0-15.0); Lymphocyte # 1.42 X10^3/ul (0.83-4.51); Lymphocyte % 8.3 % (19-41); Mean Corp Hgb Conc 31.9 g/dL (32-36); Mean Corpuscular Hgb 28.8 pg (27.0-32.0); Mean Corpuscular Volume 90.4 fL (81-99); Mean Platelet Vol. 10.8 fl (6.2-12.0); Monocyte# 1.66 X10^3/uL; Monocyte% 9.7 % (0-10); NRBC Flagged by Analyzer 0 % (0-5); Neutrophil # 12.94 X10^3/uL (2.7-7.7); POSITIVE DIFFERENTIAL YES; POSITIVE MORPHOLOGY YES; Platelet Count 412 K/mm3 (150-450); Red Blood Count 3.54 M/mm3 (4.2-5.4)
[2020-12-04 06:22] LABS: Differential Indicated SCAN CRITERIA MET
[2020-12-04 06:37] LABS: Anisocytosis 1+; Differential Comment SCANNED; Macrocytosis 1+; Target Cells RARE
[2020-12-04 06:46] LABS: Bedside Glucose 277 mg/dL (70-110)
[2020-12-04 07:46] LABS: AST(SGOT) 23 U/L (15-37); Alanine Aminotransfer ALT/SGPT 19 U/L (13-56); Albumin, Serum 2.2 g/dL (3.2-5.0); Alkaline Phosphatase 700 U/L (45-117); Anion Gap 9 (5-15); BUN 37 mg/dL (7-18); BUN/Creat Ratio 7.1 RATIO (10-20); Bilirubin, Direct 1.43 mg/dL (0.00-0.30); Calcium,Total 9.2 mg/dL (8.5-10.1); Chloride 92 mmol/L (98-107); Creatinine, Serum 5.21 mg/dL (0.55-1.02); EST Glomerular Filtration Rate 9 mL/min (>60); Est Glom Filt Rate - Afr Amer 11 mL/min (>60); Globulin 6.2 g/dL (2.2-4.2); Glucose 247 mg/dL (74-106); Potassium 4.9 mmol/L (3.5-5.1); Protein, Total 8.4 g/dL (6.4-8.2); Sodium Level 129 mmol/L (136-145)
[2020-12-04] MEDS: Cholecalciferol (VIT D3) 25 MCG TABLET (1,000 UNITS) 125 MCG PO (08:13)
[2020-12-04] MEDS: Metoprolol(XL)Succ 50 MG Tablet PO ×2 (08:14→21:22)
[2020-12-04] MEDS: Heparin Injection (Vial) 5,000 UNIT/ML VIAL 5000 UNIT SC ×2 (08:14→21:22)
[2020-12-04] MEDS: Furosemide 40 MG/4 ML Vial IV ×2 (08:14→17:17)
[2020-12-04] MEDS: Aspirin E.C. 81 MG Tablet PO (08:14)
[2020-12-04] MEDS: Ascorbic Acid 500 MG Tablet PO (08:14)
[2020-12-04] MEDS: Pantoprazole Sodium 40 MG Tablet PO (08:15)
[2020-12-04] MEDS: proCHLORPERazine 10 MG/2 ML Vial 5 MG IV (08:23)
[2020-12-04] MEDS: 0.9% Saline Lock 10 ML Syringe IV ×3 (08:24→17:17)
[2020-12-04 11:20] LABS: Bedside Glucose 171 mg/dL (70-110)
--- NOTE | 2020-12-04 12:04 | PN.HOSP_ITS ---
Subjective Subjective Patient had an episode of hypoglycemia overnight. She evidently did not eat a good dinner and left her basal rate the same on her insulin pump. Her son is coming in to help us adjust her pump as she is unsure of her current basal rate. Given her lack of p.o. intake on an intermittent basis it would be prudent to either decrease her rate or stop the pump and use subcu insulin and a sliding scale. She currently is having some nausea relating this to eating to correct her blood sugar this morning. Objective Data Objective Data Vital Signs: Vital Signs Temp Pulse Resp BP Pulse Ox 97.7 F L 77 18 136/51 H 94 12/04/20 08:25 12/04/20 11:05 12/04/20 08:25 12/04/20 08:25 12/04/20 08:25 Oxygen Flow Rate (L/min) [3] 3 Oxygen Flow Rate (L/min) [2] 3 Oxygen Flow Rate (L/min) 4 Oxygen Delivery Method [3] Nasal Cannula Oxygen Delivery Method [2] Nasal Cannula Oxygen Delivery Method [1 ( Room Air Initial Baseline)] Oxygen Delivery Method Nasal Cannula Weight: 83.4 kg Body Mass Index (BMI) 29.5 Intake & Output: Intake and Output for Last 24 Hours 12/02/20 12/03/20 12/04/20 23:59 23:59 23:59 Intake Total 660 / 780 820 / 1300 780 / 780 Output Total 3000 / 3000 0 / 0 150 / 150 Balance -2340 / -2220 820 / 1300 630 / 630 Medical Nutrition Assessment Dietitian: Malnutrition Criteria Met Start: 11/25/20 17:20 Freq: Status: Active Protocol: Document 11/25/20 17:32 SHARAD (Rec: 11/25/20 17:32 [facility] [id number]) Nutrition Malnutrition Evidence of Malnutrition Exists No Intake Problem Inadequate Oral Intake Etiology related to nausea Signs/Symptoms as evidenced by poor po intake x 2 wks prior to admission. Status Active Problem Clinical Problem Altered Nutrient-Related Laboratory Values Etiology related to renal/endocrine dysfunction Signs/Symptoms as evidenced by Na 134, K 2.7, Cr 2.33, gluc 118 Status Active Problem Recommendation Dietitian Recommendations/Changes Will change diet to Consistent CHO/ Sodium Restriction / 1500 ml fluid/day Will provide 120 ml Nepro CHO Steady w/ meals for increased nutrition if consumed Lab / Micro Data Result Diagrams: 12/04/20 05:51 12/04/20 07:07 Labs: Laboratory Results - last 24 hr 12/03/20 16:22: POC Glucose 101 12/03/20 19:37: POC Glucose 103 12/03/20 20:45: POC Glucose 67 L 12/03/20 21:58: POC Glucose 52 L 12/03/20 22:27: POC Glucose 104 12/03/20 22:50: POC Glucose 75 12/03/20 23:48: POC Glucose 82 12/04/20 00:46: POC Glucose 115 H 12/04/20 03:26: POC Glucose 250 H 12/04/20 05:51: Sodium Cancelled, Potassium Cancelled, Chloride Cancelled, Carbon Dioxide Cancelled, Anion Gap Cancelled, BUN Cancelled, Creatinine Cancelled, Estim Creat Clear Calc Cancelled, Est GFR (MDRD) Af Amer Cancelled, Est GFR (MDRD) Non-Af Cancelled, BUN/Creatinine Ratio Cancelled, Glucose Cancelled, Calcium Cancelled, Total Bilirubin Cancelled, Direct Bilirubin Cancelled, AST Cancelled, ALT Cancelled, Alkaline Phosphatase Cancelled, Total Protein Cancelled, Albumin Cancelled, Globulin Cancelled 12/04/20 05:51: WBC 17.0 H, RBC 3.54 L, Hgb 10.2 L, Hct 32.0 L, MCV 90.4, MCH 28.8, MCHC 31.9 L, RDW Std Deviation 67.0 H, RDW Coeff of Grazyna 22.0 H, Plt Count 412, MPV 10.8, Immature Gran % (Auto) 2.900 H, Neut % (Auto) 76.0 H, Lymph % (Auto) 8.3 L, Cannon % (Auto) 9.7, Eos % (Auto) 2.3, Baso % (Auto) 0.8, Absolute Neuts (auto) 12.9 H, Absolute Lymphs (auto) 1.42, Nucleated RBC % 0, Differential Comment SCANNED, Diff Path Review May foll, Anisocytosis 1+, Macrocytosis 1+, Target Cells RARE 12/04/20 06:38: POC Glucose 277 H 12/04/20 07:07: Sodium 129 L, Potassium 4.9, Chloride 92 L, Carbon Dioxide 28.0, Anion Gap 9, BUN 37 H, Creatinine 5.21 H, Estim Creat Clear Calc 11.70, Est GFR (MDRD) Af Amer 11 L, Est GFR (MDRD) Non-Af 9 L, BUN/Creatinine Ratio 7.1 L, Glucose 247 H, Calcium 9.2, Total Bilirubin 1.90 H, Direct Bilirubin 1.43 H, AST 23, ALT 19, Alkaline Phosphatase 700 H, Total Protein 8.4 H, Albumin 2.2 L, Globulin 6.2 H 12/04/20 11:14: POC Glucose 171 H Micro: Microbiology 11/28/20 08:28 Blood Culture (Wb) - Left Forearm Blood Culture - Final No growth in 5 days. 11/28/20 08:22 Blood Culture (Wb) - Left Hand Blood Culture - Final No growth in 5 days. 11/25/20 12:02 Mucosa - Nose SARS-CoV-2 Antigen (Rapid) - Final Radiography Diagnostic Testing: Radiology Impression Chest X-Ray 12/04/20 05:28 IMPRESSION: Bilateral pleural effusions with overlying atelectasis, mildly increased compared to 11/29/2020. Electronically Signed: Jhony Clark MD at 6:02 EDT Tel , Service support , Physical Exam Const alert and oriented x3 Constitutional Narrative: Patient lying in bed, nursing at bedside, patient appears uncomfortable and is complaining of some nausea and some right upper qu adrant abdominal pain at this time since eating some food for high hypoglycemia this morning Exam Limitations: no limitations Resp normal respiratory effort, no retractions, no use of accessory muscles and clear to auscultation bilaterally Resp Narrative: Diminished at bilateral bases but no adventitious lung sounds Auscultation: Negative for crackles, rales, rhonchi or wheezes Cardio regular rate, regular rhythm, S1 normal heart sound, S2 normal heart sound, no murmurs, no rub, no gallops, no clicks and no JVD GI normal to inspection, nondistended, normoactive bowel sounds Palpation: tender RUQ Extremity no clubbing, cyanosis or edema Peripheral Pulses: Yes pulses 2+ throughout Skin no rashes or lesions noted, no wounds, skin turgor normal, no jaundice, no pet echiae and no mottling Neuro oriented x3, CN's II-XII intact bilaterally, moves all extremities and no focal motor deficits Sensorium / Orientation: awake, alert, oriented to person, oriented to place and oriented to time Speech: speech normal Psych affect normal Assessment & Plan Assessment/Plan (1) Acute respiratory insufficiency: (2) Gallbladder sludge: (3) Elevated liver enzymes: (4) ESRD (end stage renal disease) on dialysis: PLAN: Acute hypoxic respiratory insufficiency secondary to acute on chronic HFpEF -Baseline O2 requirement is 2 L -Currently on 4 L with oxygen saturations 93 to 96% -Nursing plans to wean to 3 L and monitor today -Patient does make some some urine so continue Lasix -Continue IV Lasix given nausea and vomiting this morning -Continue dialysis per nephrology -Status post thoracentesis for pleural effusion -Continue to wean O2 as able Elevated liver enzymes -Bilirubin continues to trend down as does alkaline phosphatase as well -Ultrasound of the gallbladder showed mild hepatomegaly with diffuse fatty infiltration and sludge in the gallbladder -General surgery was consulted and following but does not feel that this is a cute cholecystitis -HIDA scan was done but showed nonvisualization of the gallbladder -MRCP pending for Saturday -Has pacemaker therefore awaiting rep to be present to perform Leukocytosis -White count is trending up and is the highest it has been since her admission -Start meropenem to cover intra-abdominal goldie -Patient with penicillin allergy in the form of hives therefore Zosyn avoided -Repeat CBC in a.m. -Patient is not on steroids Transudative right pleural effusion -Status post thoracentesis of 400 cc on 11/25/2020 -Repeat chest x-ray in a.m. -Pleural effusions appear to be reoccurring some -We will discuss with nephrology--> question if patient needs further volume removal -Patient is due for HD tomorrow Ascites -Likely related to persistent volume overload -Had paracentesis with removal of 2.25 L -Pathology negative for malignant cells End-stage renal disease on HD -Continue Saturday dialysis -Nephrology following -With reaccumulating pleural effusions bilaterally-->? Need more fluid withdrawn Chronic anemia secondary to renal disease -Hemoglobin stable CAD/mitral valve regurgitation/hypertension/hyperlipidemia -History of stents -Continue aspirin, statin, beta-radhika, hydralazine -Continue Lasix PAF -Continue metoprolol -Patient currently in sinus rhythm -Had been on Eliquis previously but this is on hold secondary to epistaxis DM-2 -Hypoglycemic this morning secondary to poor intake orally overnight -Continue home insulin pump--> if p.o. intake remains limited may need to decrease basal insulin versus discontinue insulin pump and start Lantus/Humalog -Patient is unsure what her basal rate currently is -Son is coming in this afternoon to help out with her pump -SSI -Accu-Cheks GERD -Continue PPI DVT prophylaxis -Continue heparin CODE STATUS -Full code
[2020-12-04 12:51] LABS: Bedside Glucose 180 mg/dL (70-110)
[2020-12-04 17:05] LABS: Bedside Glucose 163 mg/dL (70-110)
[2020-12-04] MEDS: Albuterol 2.5 MG/3 ML VIAL.NEB. INHALATION (19:01)
[2020-12-04] MEDS: oxyCODONE 5 MG Tablet PO (21:29)
[2020-12-04 21:56] LABS: Bedside Glucose 112 mg/dL (70-110)
[2020-12-05] VITALS (14 sets, daily range): BP systolic 106–143; BP diastolic 47–57; PULSE 68–87; RESP 12–18; TEMP 36.2–36.7; O2SAT 93–97
[2020-12-05] MEDS: hydrOXYzine PAM 25 MG Capsule PO ×3 (05:00→21:13)
[2020-12-05 05:54] LABS: Absolute Lymphocyte Count 1.51 X10^3/uL (0.83-4.51); Absolute Neutrophil Count 10.9 X10^3/uL (2.0-7.7); Basophil# 0.15 X10^3/uL; Eosinophil# 0.55 X10^3/uL; Eosinophils% 3.6 % (0-5); Hematocrit 31.9 % (37-47); Hemoglobin 10.2 g/dL (12.0-15.0); Lymphocyte # 1.51 X10^3/ul (0.83-4.51); Lymphocyte % 9.8 % (19-41); Mean Corpuscular Hgb 29.1 pg (27.0-32.0); Mean Corpuscular Volume 91.1 fL (81-99); Mean Platelet Vol. 10.6 fl (6.2-12.0); Monocyte# 1.69 X10^3/uL; Monocyte% 10.9 % (0-10); NRBC Flagged by Analyzer 0.1 % (0-5); Neutrophil # 10.91 X10^3/uL (2.7-7.7); Neutrophil % 70.6 % (47-70); POSITIVE DIFFERENTIAL YES; POSITIVE MORPHOLOGY YES; Platelet Count 415 K/mm3 (150-450); RBC Distribution Width SD 66.3 fl (35.1-43.9); White Blood Count 15.4 K/mm3 (4.4-11.0)
[2020-12-05 06:08] LABS: Differential Indicated SCAN CRITERIA MET
[2020-12-05 06:21] LABS: AST(SGOT) 15 U/L (15-37); Alanine Aminotransfer ALT/SGPT 16 U/L (13-56); Alkaline Phosphatase 583 U/L (45-117); Anion Gap 9 (5-15); BUN 45 mg/dL (7-18); BUN/Creat Ratio 7.5 RATIO (10-20); Bilirubin, Direct 0.96 mg/dL (0.00-0.30); Calcium,Total 9.1 mg/dL (8.5-10.1); Chloride 93 mmol/L (98-107); Creatinine, Serum 6.04 mg/dL (0.55-1.02); EST Glomerular Filtration Rate 8 mL/min (>60); Est Glom Filt Rate - Afr Amer 9 mL/min (>60); Estimated Creatinine Clearance 10.09 ml/min; Globulin 5.8 g/dL (2.2-4.2); Glucose 167 mg/dL (74-106); Potassium 4.9 mmol/L (3.5-5.1); Protein, Total 7.8 g/dL (6.4-8.2); Sodium Level 130 mmol/L (136-145)
[2020-12-05 06:29] LABS: Differential Comment SCANNED; Polychromasia 1+
[2020-12-05 06:31] LABS: Anisocytosis 2+; Macrocytosis 1+
[2020-12-05 06:51] LABS: Bedside Glucose 167 mg/dL (70-110)
--- NOTE | 2020-12-05 09:52 | PN.RENAL_ITS ---
Subjective Subjective Following for ESRD. The patient is seen during hemodialysis treatment. She is tolerating dialysis well so far. She denies chest pain or shortness of breath at rest. The patient does have occasional nausea. There is no edema. Objective Data Objective Data Vital Signs: Vital Signs Temp Pulse Resp BP Pulse Ox 97.7 F L 70 16 116/57 L 93 12/05/20 07:46 12/05/20 07:46 12/05/20 07:46 12/05/20 07:46 12/05/20 07:46 Oxygen Flow Rate (L/min) [3] 3 Oxygen Flow Rate (L/min) [2] 3 Oxygen Flow Rate (L/min) 3 Oxygen Delivery Method [3] Nasal Cannula Oxygen Delivery Method [2] Nasal Cannula Oxygen Delivery Method [1 ( Room Air Initial Baseline)] Oxygen Delivery Method Nasal Cannula Weight: 84 kg Body Mass Index (BMI) 29.5 Intake & Output: Intake and Output for Last 24 Hours 12/03/20 12/04/20 12/05/20 23:59 23:59 23:59 Intake Total 820 / 1300 1332.50 / 1332.50 240 / 240 Output Total 0 / 0 150 / 150 Balance 820 / 1300 1182.50 / 1182.50 240 / 240 Medical Nutrition Assessment Dietitian: Malnutrition Criteria Met Start: 11/25/20 17 :20 Freq: Status: Active Protocol: Document 11/25/20 17:32 SHARAD (Rec: 11/25/20 17:32 SHARAD [id number]) Nutrition Malnutrition Evidence of Malnutrition Exists No Intake Problem Inadequate Oral Intake Etiology related to nausea Signs/Symptoms as evidenced by poor po intake x 2 wks prior to admission. Status Active Problem Clinical Problem Altered Nutrient-Related Laboratory Values Etiology related to renal/endocrine dysfunction Signs/Symptoms as evidenced by Na 134, K 2.7, Cr 2.33, gluc 118 Status Active Problem Recommendation Dietitian Recommendations/Changes Will change diet to Consistent CHO/ Sodium Restriction / 1500 ml fluid/day Will provide 120 ml Nepro CHO Steady w/ meals for increased nutrition if consumed Lab / Micro Data Result Diagrams: 12/05/20 05:24 12/05/20 05:24 Labs: Laboratory Results - last 24 hr 12/04/20 11:14: POC Glucose 171 H 12/04/20 12:46: POC Glucose 180 H 12/04/20 16:49: POC Glucose 163 H 12/04/20 21:27: POC Glucose 112 H 12/05/20 05:24: Sodium 130 L, Potassium 4.9, Chloride 93 L, Carbon Dioxide 28.0, Anion Gap 9, BUN 45 H, Creatinine 6.04 H, Estim Creat Clear Calc 10.09, Est GFR (MDRD) Af Amer 9 L, Est GFR (MDRD) Non-Af 8 L, BUN/Creatinine Ratio 7.5 L, Glucose 167 H, Calcium 9.1, Total Bilirubin 1.40 H, Direct Bilirubin 0.96 H, AST 15, ALT 16, Alkaline Phosphatase 583 H, Total Protein 7.8, Albumin 2.0 L, Globulin 5.8 H 12/05/20 05:24: WBC 15.4 H, RBC 3.50 L, Hgb 10.2 L, Hct 31.9 L, MCV 91.1, MCH 29.1, MCHC 32.0, RDW Std Deviation 66.3 H, RDW Coeff of Grazyna 22.0 H, Plt Count 415, MPV 10.6, Immature Gran % (Auto) 4.100 H, Neut % (Auto) 70.6 H, Lymph % (Auto) 9.8 L, Churchill % (Auto) 10.9 H, Eos % (Auto) 3.6, Baso % (Auto) 1.0, Absolute Neuts (auto) 10.9 H, Absolute Lymphs (auto) 1.51, Nucleated RBC % 0.1, Differential Comment SCANNED, Diff Path Review May , Polychromasia 1+, Anisocytosis 2+, Macrocytosis 1+ 12/05/20 06:32: POC Glucose 167 H Micro: Microbiology 11/28/20 08:28 Blood Culture (Wb) - Left Forearm Blood Culture - Final No growth in 5 days. 11/28/20 08:22 Blood Culture (Wb) - Left Hand Blood Culture - Final No growth in 5 days. 11/25/20 12:02 Mucosa - Nose SARS-CoV-2 Antigen (Rapid) - Final Physical Exam Narrative General: Alert and oriented x3 in no apparent distress. HEENT: Normocephalic, atraumatic. Mucous membrane moist without erythema. Neck: Supple. Heart: Normal S1, S2. No rubs or murmurs. Lungs: Clear to auscultation bilaterally. Abdomen: Normal bowel sounds, soft, nontender, no guarding or rebound. Extremity: No edema in the lower extremities. No clubbing or cyanosis. Assessment & Plan Assessment/Plan (1) ESRD (end stage renal disease) on dialysis: PLAN: The patient usually dialyzes on a Saturday, Saturday and Saturday schedule at [facility]. She is followed there by Dr. Glynn. I supervised the dialysis today: 4 hours treatment using F1 60 dialyzer. Blood flow 400. Dialysate flow 600. 3K dialysate used. HD access RUE access (2) Anemia: PLAN: Continue to monitor hemoglobin as needed. (3) HTN (hypertension): PLAN: Continue holding hydralazine. The patient is on metoprolol with reasonable blood pressure control. Will monitor blood pressure with dialysis today. (4) CHF exacerbation: QUALIFIERS: Heart failure type: unspecified Qualified Code(s): I50.9 - Heart failure, unspecified PLAN: Clinically improved after ultrafiltration with dialysis. UF as tolerated with HD session. (5) Hyponatremia: PLAN: Likely from fluid overload. Keep O>I with dialysis. (6) Elevated liver enzymes: PLAN: Patient is going for MRCP today. If group 2 gadolinium is used, she would not need dialysis after MRI.
[2020-12-05] MEDS: oxyCODONE 5 MG Tablet PO ×2 (10:38→21:13)
[2020-12-05 12:00] LABS: Bedside Glucose 126 mg/dL (70-110)
--- NOTE | 2020-12-05 12:14 | PCM.PN.SRG ---
Subjective Subjective Patient complaining of diffuse abdominal tenderness both on the right side and on the left side. States that she is unable to eat well at all today but no nausea or vomiting. She has not had any bowel movement she is not complaining of any diarrhea hematochezia. Objective Data Objective Data Diffuse abdominal tenderness bilaterally. With some voluntary guarding really does not matter where you push on her abdomen she is quite tender. Vital Signs: Vital Signs Temp Pulse Resp BP Pulse Ox 97.8 F 78 12 106/49 L 94 12/05/20 11:57 12/05/20 11:57 12/05/20 11:57 12/05/20 11:57 12/05/20 11:57 Oxygen Flow Rate (L/min) [3] 3 Oxygen Flow Rate (L/min) [2] 3 Oxygen Flow Rate (L/min) 3 Oxygen Delivery Method [3] Nasal Cannula Oxygen Delivery Method [2] Nasal Cannula Oxygen Delivery Method [1 ( Room Air Initial Baseline)] Oxygen Delivery Method Nasal Cannula Weight: 185 lb 3.013 oz Body Mass Index (BMI) 29.5 Intake & Output: Intake and Output for Last 24 Hours 12/03/20 12/04/20 12/05/20 23:59 23:59 23:59 Intake Total 820 / 1300 1332.50 / 1332.50 240 / 240 Output Total 0 / 0 150 / 150 Balance 820 / 1300 1182.50 / 1182.50 240 / 240 Medical Nutrition Assessment Dietitian: Malnutrition Criteria Met Start: 11/25/20 17:20 Freq: Status: Active Protocol: Document 11/25/20 17:32 SHARAD (Rec: 11/25/20 17:32 SHARAD [id number]) Nutrition Malnutrition Evidence of Malnutrition Exists No Intake Problem Inadequate Oral Intake Etiology related to nausea Signs/Symptoms as evidenced by poor po intake x 2 wks prior to admission. Status Active Problem Clinical Problem Altered Nutrient-Related Laboratory Values Etiology related to renal/endocrine dysfunction Signs/Symptoms as evidenced by Na 134, K 2.7, Cr 2.33, gluc 118 Status Active Problem Recommendation Dietitian Recommendations/Changes Will change diet to Consistent CHO/ Sodium Restriction / 1500 ml fluid/day Will provide 120 ml Nepro CHO Steady w/ meals for increased nutrition if consumed Lab / Micro Data Result Diagrams: 12/05/20 05:24 12/05/20 05:24 Labs: Laboratory Results - last 24 hr 12/04/20 12:46: POC Glucose 180 H 12/04/20 16:49: POC Glucose 163 H 12/04/20 21:27: POC Glucose 112 H 12/05/20 05:24: Sodium 130 L, Potassium 4.9, Chloride 93 L, Carbon Dioxide 28.0, Anion Gap 9, BUN 45 H, Creatinine 6.04 H, Estim Creat Clear Calc 10.09, Est GFR (MDRD) Af Amer 9 L, Est GFR (MDRD) Non-Af 8 L, BUN/Creatinine Ratio 7.5 L, Glucose 167 H, Calcium 9.1, Total Bilirubin 1.40 H, Direct Bilirubin 0.96 H, AST 15, ALT 16, Alkaline Phosphatase 583 H, Total Protein 7.8, Albumin 2.0 L, Globulin 5.8 H 12/05/20 05:24: WBC 15.4 H, RBC 3.50 L, Hgb 10.2 L, Hct 31.9 L, MCV 91.1, MCH 29.1, MCHC 32.0, RDW Std Deviation 66.3 H, RDW Coeff of Grazyna 22.0 H, Plt Count 415, MPV 10.6, Immature Gran % (Auto) 4.100 H, Neut % (Auto) 70.6 H, Lymph % (Auto) 9.8 L, Taliaferro % (Auto) 10.9 H, Eos % (Auto) 3.6, Baso % (Auto) 1.0, Absolute Neuts (auto) 10.9 H, Absolute Lymphs (auto) 1.51, Nucleated RBC % 0.1, Differential Comment SCANNED, Diff Path Review May foll, Polychromasia 1+, Anisocytosis 2+, Macrocytosis 1+ 12/05/20 06:32: POC Glucose 167 H 12/05/20 11:54: POC Glucose 126 H Micro: Microbiology 11/28/20 08:28 Blood Culture (Wb) - Left Forearm Blood Culture - Final No growth in 5 days. 11/28/20 08:22 Blood Culture (Wb) - Left Hand Blood Culture - Final No growth in 5 days. 11/25/20 12:02 Mucosa - Nose SARS-CoV-2 Antigen (Rapid) - Final Assessment & Plan Assessment/Plan (1) Diffuse abdominal pain: PLAN: We are going to obtain a CAT scan of the abdomen and pelvis with oral contrast. Unlikely going to be able to get the MRCP done today. But I am concerned that she may have a perforated viscus with all the amount of abdominal pain she is experiencing.
--- NOTE | 2020-12-05 12:16 | CT_ITS ---
STUDY: CT ABDOMEN AND PELVIS WITHOUT CONTRAST REASON FOR EXAM: Female, 60 years old. ACUTE CHF EXACERBATION, DIFFUSE ABD PAIN, CKD STAGE 5 ON DIALYSIS, HTN, CHF, CAD, APPY, CABG, MITRAL VALVE REPLACEMENT RADIATION DOSAGE (If Supplied By Facility): CTDIvol = ( 9.09 ) mGy, DLP = ( 472.63 ) mGycm TECHNIQUE: Transaxial images were obtained from the dome of the diaphragm to the symphysis pubis with oral contrast, and without intravenous contrast. Sagittal and coronal images were reconstructed. Individualized dose optimization techniques were used for this CT. COMPARISON: None. FINDINGS: There is moderate atelectasis of the bilateral lower lobes with small to moderate size pleural effusions. Cardiac leads are present in the right heart. Median sternotomy wires are present. A small to moderate amount of ascites is present in the abdomen and pelvis. Normal liver. The gallbladder is contracted and contains several small stones.. Normal spleen. Normal pancreas. Normal bilateral adrenal glands. There is mild cortical atrophy of the right kidney, consistent with chronic medical renal disease. There is mild cortical atrophy of the left kidney, consistent with chronic medical renal disease. Mild perinephric stranding is present. Normal visualized stomach. Normal small intestine. Normal colon. There is non-visualization of the appendix. There is diffuse atherosclerotic calcification of the abdominal aorta, without a demonstrated aneurysm. Normal inferior vena cava. Normal retroperitoneum. Normal urinary bladder. There is atrophy of the uterus. There is a small umbilical hernia containing fat. There are diffuse degenerative changes of the visualized lumbar spine. CT/Abdomen/Pel W ORAL Cont Only IMPRESSION: 1. Moderate atelectasis of the bilateral lower lobes with small to moderate size pleural effusions. 2. Small to moderate amount of abdominal and pelvic ascites 3. Contracted gallbladder containing several tiny stones Electronically Signed: Ender Arroyo MD at 16:32 EDT , Service support ,
[2020-12-05 12:43] LABS: Pathologist Review Reviewed
[2020-12-05 12:43] LABS: Pathologist Review Reviewed
[2020-12-05 12:43] LABS: Pathologist Review Reviewed
--- NOTE | 2020-12-05 12:59 | PCM.PN.HOSP ---
Subjective Subjective Patient is reporting continued abdominal pain. MRCP is unable to be performed and CT of the abdomen pelvis is pending. She is currently on hemodialysis. Objective Data Objective Data Vital Signs: Vital Signs Temp Pulse Resp BP Pulse Ox 97.8 F 78 12 106/49 L 94 12/05/20 11:57 12/05/20 11:57 12/05/20 11:57 12/05/20 11:57 12/05/20 11:57 Oxygen Flow Rate (L/min) [3] 3 Oxygen Flow Rate (L/min) [2] 3 Oxygen Flow Rate (L/min) 3 Oxygen Delivery Method [3] Nasal Cannula Oxygen Delivery Method [2] Nasal Cannula Oxygen Delivery Method [1 ( Room Air Initial Baseline)] Oxygen Delivery Method Nasal Cannula Weight: 84 kg Body Mass Index (BMI) 29.5 Intake & Output: Intake and Output for Last 24 Hours 12/03/20 12/04/20 12/05/20 23:59 23:59 23:59 Intake Total 820 / 1300 1332.50 / 1332.50 240 / 240 Output Total 0 / 0 150 / 150 Balance 820 / 1300 1182.50 / 1182.50 240 / 240 Medical Nutrition Assessment Dietitian: Malnutrition Criteria Met Start: 11/25/20 17:20 Freq: Status: Active Protocol: Document 11/25/20 17:32 SHARAD (Rec: 11/25/20 17:32 SHARAD [id number]) Nutrition Malnutrition Evidence of Malnutrition Exists No Intake Problem Inadequate Oral Intake Etiology related to nausea Signs/Symptoms as evidenced by poor po intake x 2 wks prior to admission. Status Active Problem Clinical Problem Altered Nutrient-Related Laboratory Values Etiology related to renal/endocrine dysfunction Signs/Symptoms as evidenced by Na 134, K 2.7, Cr 2.33, gluc 118 Status Active Problem Recommendation Dietitian Recommendations/Changes Will change diet to Consistent CHO/ Sodium Restriction / 1500 ml fluid/day Will provide 120 ml Nepro CHO Steady w/ meals for increased nutrition if consumed Lab / Micro Data Result Diagrams: 12/05/20 05:24 12/05/20 05:24 Labs: Laboratory Results - last 24 hr 12/03/20 06:35: Diff Path Review Reviewed 12/04/20 05:51: Diff Path Review Reviewed 12/04/20 16:49: POC Glucose 163 H 12/04/20 21:27: POC Glucose 112 H 12/05/20 05:24: Sodium 130 L, Potassium 4.9, Chloride 93 L, Carbon Dioxide 28.0, Anion Gap 9, BUN 45 H, Creatinine 6.04 H, Estim Creat Clear Calc 10.09, Est GFR (MDRD) Af Amer 9 L, Est GFR (MDRD) Non-Af 8 L, BUN/Creatinine Ratio 7.5 L, Glucose 167 H, Calcium 9.1, Total Bilirubin 1.40 H, Direct Bilirubin 0.96 H, AST 15, ALT 16, Alkaline Phosphatase 583 H, Total Protein 7.8, Albumin 2.0 L, Globulin 5.8 H 12/05/20 05:24: WBC 15.4 H, RBC 3.50 L, Hgb 10.2 L, Hct 31.9 L, MCV 91.1, MCH 29.1, MCHC 32.0, RDW Std Deviation 66.3 H, RDW Coeff of Grazyna 22.0 H, Plt Count 415, MPV 10.6, Immature Gran % (Auto) 4.100 H, Neut % (Auto) 70.6 H, Lymph % (Auto) 9.8 L, [place] % (Auto) 10.9 H, Eos % (Auto) 3.6, Baso % (Auto) 1.0, Absolute Neuts (auto) 10.9 H, Absolute Lymphs (auto) 1.51, Nucleated RBC % 0.1, Differential Comment SCANNED, Diff Path Review Reviewed, Polychromasia 1+, Anisocytosis 2+, Macrocytosis 1+ 12/05/20 06:32: POC Glucose 167 H 12/05/20 11:54: POC Glucose 126 H Micro: Microbiology 11/28/20 08:28 Blood Culture (Wb) - Left Forearm Blood Culture - Final No growth in 5 days. 11/28/20 08:22 Blood Culture (Wb) - Left Hand Blood Culture - Final No growth in 5 days. 11/25/20 12:02 Mucosa - Nose SARS-CoV-2 Antigen (Rapid) - Final Physical Exam Const alert, oriented x3 and no apparent distress Constitutional Narrative: Patient lying in bed, nursing at bedside, patient appears somewhat uncomfortable, is having diffuse abdominal pain, HD nurses at the bedside Exam Limitations: no limitations Nutritional Appearance: overweight HEENT head/scalp atraumatic, moist oral mucous membranes and oropharynx normal Head and Scalp: normocephalic Resp normal respiratory effort, no retractions, no use of accessory muscles and clear to auscultation bilaterally Resp Narrative: Diminished at bilateral bases but no adventitious lung sounds Auscultation: Negative for crackles, rales, rhonchi or wheezes Cardio regular rate, regular rhythm, S1 normal heart sound, S2 normal heart sound, no murmurs, no rub, no gallops, no clicks and no JVD GI normal to inspection, nondistended, normoactive bowel sounds, soft to palpation, non-tender and non-distended Palpation: tender other (Diffusely tender) Extremity normal to inspection, full ROM and no clubbing, cyanosis or edema Extremity Narrative: Trace bilateral lower extremity edema, no clubbing or cyanosis General Extremity: edema Skin no rashes or lesions noted, no wounds, skin turgor normal, no jaundice, no petechiae and no mottling Skin Narrative: Pale skin Neuro oriented x3, CN's II-XII intact bilaterally, moves all extremities and no focal motor deficits Sensorium / Orientation: awake, alert, oriented to person, oriented to place and oriented to time Speech: speech normal Psych affect normal Assessment & Plan Assessment/Plan (1) Acute respiratory insufficiency: (2) Elevated liver enzymes: (3) Gallbladder sludge: (4) Diffuse abdominal pain: (5) ESRD (end stage renal disease) on dialysis: PLAN: Acute hypoxic respiratory insufficiency secondary to acute on chronic HFpEF -Baseline O2 requirement is 2 L -Currently on 3 L with oxygen saturations 93 to 94% -Continue to wean as possible -Continue IV Lasix -Continue dialysis per nephrology -Status post thoracentesis for pleural effusion -Continue to wean O2 as able Elevated liver enzymes -Both bilirubin and alk phos continue to trend down slowly -Ultrasound of the gallbladder showed mild hepatomegaly with diffuse fatty infiltration and sludge in the gallbladder -General surgery was consulted and following but does not feel that this is acute cholecystitis -HIDA scan was done but showed nonvisualization of the gallbladder -MRCP unable to be performed Diffuse abdominal pain -MRCP unable to be performed secondary to radiology concerns regarding clip and pacemaker -Stat CT abdomen pelvis is pending -Continue meropenem -Patient did have recent paracentesis Leukocytosis -White count is somewhat improved today -Continue meropenem to cover intra-abdominal goldie -Patient with penicillin allergy in the form of hives therefore Zosyn avoided -Repeat CBC in a.m. Transudative right pleural effusion -Status post thoracentesis of 400 cc on 11/25/2020 -Repeat chest x-ray in a.m. -Pleural effusions appear to be reoccurring some -We will discuss with nephrology--> question if patient needs further volume removal -Patient is due for HD tomorrow Ascites -Likely related to persistent volume overload -Had paracentesis with removal of 2.25 L -Pathology negative for malignant cells End-stage renal disease on HD -Continue Saturday dialysis -Nephrology following -With reaccumulating pleural effusions bilaterally-->? Need more fluid withdrawn Chronic anemia secondary to renal disease -Hemoglobin stable CAD/mitral valve regurgitation/hypertension/hyperlipidemia -History of stents -Continue aspirin, statin, beta-radhika, hydralazine -Continue Lasix PAF -Continue metoprolol -Patient currently in sinus rhythm -Had been on Eliquis previously but this is on hold secondary to epistaxis DM-2 -No further hypoglycemic episodes -Continue to monitor closely -Insulin pump in place -SSI -Accu-Cheks GERD -Continue PPI DVT prophylaxis -Continue heparin CODE STATUS -Full code Charges/Coding Visit Charges Inpatient E&M: 76531 Subs Hosp L2
[2020-12-05] MEDS: Aspirin E.C. 81 MG Tablet PO (13:09)
[2020-12-05] MEDS: Pantoprazole Sodium 40 MG Tablet PO (13:09)
[2020-12-05] MEDS: Metoprolol(XL)Succ 50 MG Tablet PO ×2 (13:09→21:13)
[2020-12-05] MEDS: Ascorbic Acid 500 MG Tablet PO (13:09)
[2020-12-05] MEDS: Cholecalciferol (VIT D3) 25 MCG TABLET (1,000 UNITS) 125 MCG PO (13:09)
[2020-12-05] MEDS: Furosemide 40 MG/4 ML Vial IV ×2 (13:10→18:24)
--- NOTE | 2020-12-05 16:31 | DIALYSIS ---
HD today as ordered tolerated well uf -3100ml report to Brittani goncalves
[2020-12-05 16:46] LABS: Bedside Glucose 139 mg/dL (70-110)
[2020-12-05] MEDS: Albuterol 2.5 MG/3 ML VIAL.NEB. INHALATION (19:25)
[2020-12-05 22:56] LABS: Bedside Glucose 153 mg/dL (70-110)
[2020-12-06 03:00] VITALS: PULSE 91
[2020-12-06 03:15] VITALS: BP 121/49; PULSE 75; RESP 18; TEMP 36.2; O2SAT 92
--- NOTE | 2020-12-06 04:48 | PCM.PN.SRG ---
Subjective Subjective Patient had a good night sleeping. Moving her bowels appropriately. Not complaining of any abdominal pain. Objective Data Objective Data Abdomen is soft nontender Vital Signs: Vital Signs Temp Pulse Resp BP Pulse Ox 97.2 F L 75 18 121/49 H 92 12/06/20 03:15 12/06/20 03:15 12/06/20 03:15 12/06/20 03:15 12/06/20 03:15 Oxygen Flow Rate (L/min) [3] 3 Oxygen Flow Rate (L/min) [2] 3 Oxygen Flow Rate (L/min) 4 Oxygen Delivery Method [3] Nasal Cannula Oxygen Delivery Method [2] Nasal Cannula Oxygen Delivery Method [1 ( Room Air Initial Baseline)] Oxygen Delivery Method Nasal Cannula Weight: 185 lb 3.013 oz Body Mass Index (BMI) 29.5 Intake & Output: Intake and Output for Last 24 Hours 12/04/20 12/05/20 12/06/20 23:59 23:59 23:59 Intake Total 1332.50 / 1332.50 960 / 960 Output Total 150 / 150 Balance 1182.50 / 1182.50 960 / 960 Medical Nutrition Assessment Dietitian: Malnutrition Criteria Met Start: 11/25/20 17:20 Freq: Status: Active Protocol: Document 11/25/20 17:32 SHARAD (Rec: 11/25/20 17:32 SHARAD [id number]) Nutrition Malnutrition Evidence of Malnutrition Exists No Intake Problem Inadequate Oral Intake Etiology related to nausea Signs/Symptoms as evidenced by poor po intake x 2 wks prior to admission. Status Active Problem Clinical Problem Altered Nutrient-Related Laboratory Values Etiology related to renal/endocrine dysfunction Signs/Symptoms as evidenced by Na 134, K 2.7, Cr 2.33, gluc 118 Status Active Problem Recommendation Dietitian Recommendations/Changes Will change diet to Consistent CHO/ Sodium Restriction / 1500 ml fluid/day Will provide 120 ml Nepro CHO Steady w/ meals for increased nutrition if consumed Lab / Micro Data Result Diagrams: 12/05/20 05:24 12/05/20 05:24 Labs: Laboratory Results - last 24 hr 12/03/20 06:35: Diff Path Review Reviewed 12/04/20 05:51: Diff Path Review Reviewed 12/05/20 05:24: Sodium 130 L, Potassium 4.9, Chloride 93 L, Carbon Dioxide 28.0, Anion Gap 9, BUN 45 H, Creatinine 6.04 H, Estim Creat Clear Calc 10.09, Est GFR (MDRD) Af Amer 9 L, Est GFR (MDRD) Non-Af 8 L, BUN/Creatinine Ratio 7.5 L, Glucose 167 H, Calcium 9.1, Total Bilirubin 1.40 H, Direct Bilirubin 0.96 H, AST 15, ALT 16, Alkaline Phosphatase 583 H, Total Protein 7.8, Albumin 2.0 L, Globulin 5.8 H 12/05/20 05:24: WBC 15.4 H, RBC 3.50 L, Hgb 10.2 L, Hct 31.9 L, MCV 91.1, MCH 29.1, MCHC 32.0, RDW Std Deviation 66.3 H, RDW Coeff of Grazyna 22.0 H, Plt Count 415, MPV 10.6, Immature Gran % (Auto) 4.100 H, Neut % (Auto) 70.6 H, Lymph % (Auto) 9.8 L, [place] % (Auto) 10.9 H, Eos % (Auto) 3.6, Baso % (Auto) 1.0, Absolute Neuts (auto) 10.9 H, Absolute Lymphs (auto) 1.51, Nucleated RBC % 0.1, Differential Comment SCANNED, Diff Path Review Reviewed, Polychromasia 1+, Anisocytosis 2+, Macrocytosis 1+ 12/05/20 06:32: POC Glucose 167 H 12/05/20 11:54: POC Glucose 126 H 12/05/20 16:16: POC Glucose 139 H 12/05/20 21:11: POC Glucose 153 H Micro: Microbiology 11/28/20 08:28 Blood Culture (Wb) - Left Forearm Blood Culture - Final No growth in 5 days. 11/28/20 08:22 Blood Culture (Wb) - Left Hand Blood Culture - Final No growth in 5 days. 11/25/20 12:02 Mucosa - Nose SARS-CoV-2 Antigen (Rapid) - Final Radiography Diagnostic Testing: Radiology Impression Abdomen CT 12/05/20 12:16 IMPRESSION: 1. Moderate atelectasis of the bilateral lower lobes with small to moderate size pleural effusions. 2. Small to moderate amount of abdominal and pelvic ascites 3. Contracted gallbladder containing several tiny stones Electronically Signed: Ender Arroyo MD at 16:32 EDT , Service support , Assessment & Plan Assessment/Plan (1) Gallbladder sludge: (2) Elevated liver enzymes: PLAN: No intention of taking her to surgery to remove her gallbladder at this time. May advance her diet as tolerated.
[2020-12-06 06:36] VITALS: PULSE 72
[2020-12-06] MEDS: 0.9% Saline Lock 10 ML Syringe IV (06:38)
[2020-12-06] MEDS: hydrOXYzine PAM 25 MG Capsule PO ×2 (06:38→14:44)
[2020-12-06 06:46] LABS: Bedside Glucose 136 mg/dL (70-110)
[2020-12-06 07:01] LABS: Absolute Lymphocyte Count 1.13 X10^3/uL (0.83-4.51); Absolute Neutrophil Count 11.2 X10^3/uL (2.0-7.7); Basophil# 0.11 X10^3/uL; Basophil% 0.7 % (0-1); Eosinophil# 0.54 X10^3/uL; Eosinophils% 3.5 % (0-5); Hematocrit 30.7 % (37-47); Hemoglobin 9.8 g/dL (12.0-15.0); Lymphocyte # 1.13 X10^3/ul (0.83-4.51); Lymphocyte % 7.4 % (19-41); Mean Corp Hgb Conc 31.9 g/dL (32-36); Mean Corpuscular Hgb 28.7 pg (27.0-32.0); Mean Corpuscular Volume 89.8 fL (81-99); Mean Platelet Vol. 10.4 fl (6.2-12.0); Monocyte# 1.65 X10^3/uL; Monocyte% 10.8 % (0-10); NRBC Flagged by Analyzer 0.2 % (0-5); Neutrophil # 11.18 X10^3/uL (2.7-7.7); Neutrophil % 72.8 % (47-70); POSITIVE DIFFERENTIAL YES; POSITIVE MORPHOLOGY YES; Platelet Count 392 K/mm3 (150-450); RBC Distribution Width CV 22.4 % (11.6-14.6); RBC Distribution Width SD 65.5 fl (35.1-43.9); Red Blood Count 3.42 M/mm3 (4.2-5.4); White Blood Count 15.3 K/mm3 (4.4-11.0)
[2020-12-06 07:19] LABS: Differential Indicated SCAN CRITERIA MET
--- NOTE | 2020-12-06 07:31 | US_ITS ---
STUDY: SUPERFICIAL ULTRASOUND - RIGHT PLEURAL SPACE. REASON FOR EXAM: Female, 60 years old. R effusion TECHNIQUE: A superficial ultrasound was performed with real-time and static noble-scale imaging. COMPARISON: None. FINDINGS: Small loculated pleural fluid collection. Patient refused thoracentesis. US/Chest IMPRESSION: There is a small loculated pleural fluid collection. Patient refused thoracentesis. Electronically Signed: Micah Zelaya MD at 15:09 EDT , Service support ,
[2020-12-06 07:39] LABS: AST(SGOT) 16 U/L (15-37); Alanine Aminotransfer ALT/SGPT 15 U/L (13-56); Alkaline Phosphatase 522 U/L (45-117); Anion Gap 8 (5-15); BUN 24 mg/dL (7-18); BUN/Creat Ratio 6.2 RATIO (10-20); Bilirubin, Direct 0.93 mg/dL (0.00-0.30); Calcium,Total 8.4 mg/dL (8.5-10.1); Chloride 94 mmol/L (98-107); Creatinine, Serum 3.86 mg/dL (0.55-1.02); EST Glomerular Filtration Rate 13 mL/min (>60); Est Glom Filt Rate - Afr Amer 15 mL/min (>60); Estimated Creatinine Clearance 15.79 ml/min; Globulin 5.3 g/dL (2.2-4.2); Glucose 123 mg/dL (74-106); Potassium 4.2 mmol/L (3.5-5.1); Protein, Total 7.3 g/dL (6.4-8.2); Sodium Level 132 mmol/L (136-145)
[2020-12-06 07:46] VITALS: O2SAT 94
[2020-12-06] MEDS: Aspirin E.C. 81 MG Tablet PO (07:59)
[2020-12-06 09:30] VITALS: BP 99/44; PULSE 72; RESP 18; TEMP 36.7; O2SAT 92
--- NOTE | 2020-12-06 09:34 | CASEMGMT ---
Physician indicated patient will be discharged to [facility] today after her Thoracentesis. SW called Glory at [facility] and left her a voice mail letting her know this information. Plan: d/c to [facility] [place] today under skilled level of care. Ana REYES
[2020-12-06] MEDS: Cholecalciferol (VIT D3) 25 MCG TABLET (1,000 UNITS) 125 MCG PO (09:49)
[2020-12-06] MEDS: Ascorbic Acid 500 MG Tablet PO (09:49)
[2020-12-06] MEDS: Pantoprazole Sodium 40 MG Tablet PO (09:49)
--- NOTE | 2020-12-06 10:52 | PN.RENAL_ITS ---
Subjective Subjective Sitting in chair at bedside, denies any complaints. Reports feeling better overall. Objective Data Objective Data Vital Signs: Vital Signs Temp Pulse Resp BP Pulse Ox 98.0 F 72 18 99/44 L 92 12/06/20 09:30 12/06/20 09:30 12/06/20 09:30 12/06/20 09:30 12/06/20 09:30 Oxygen Flow Rate (L/min) [3] 3 Oxygen Flow Rate (L/min) [2] 3 Oxygen Flow Rate (L/min) 3 Oxygen Delivery Method [3] Nasal Cannula Oxygen Delivery Method [2] Nasal Cannula Oxygen Delivery Method [1 ( Room Air Initial Baseline)] Oxygen Delivery Method Nasal Cannula Weight: 80.5 kg Body Mass Index (BMI) 29.5 Intake & Output: Intake and Output for Last 24 Hours 12/04/20 12/05/20 12/06/20 23:59 23:59 23:59 Intake Total 1332.50 / 1332.50 960 / 960 Output Total 150 / 150 Balance 1182.50 / 1182.50 960 / 960 Medical Nutrition Assessment Dietitian: Malnutrition Criteria Met Start: 11/25/20 17:20 Freq: Status: Active Protocol: Document 11/25/20 17:32 SHARAD (Rec: 11/25/20 17:32 SLA [id number]) Nutrition Malnutrition Evidence of Malnutrition Exists No Intake Problem Inadequate Oral Intake Etiology related to nausea Signs/Symptoms as evidenced by poor po intake x 2 wks prior to admission. Status Active Problem Clinical Problem Altered Nutrient-Related Laboratory Values Etiology related to renal/endocrine dysfunction Signs/Symptoms as evidenced by Na 134, K 2.7, Cr 2.33, gluc 118 Status Active Problem Recommendation Dietitian Recommendations/Changes Will change diet to Consistent CHO/ Sodium Restriction / 1500 ml fluid/day Will provide 120 ml Nepro CHO Steady w/ meals for increased nutrition if consumed Lab / Micro Data Result Diagrams: 12/06/20 06:04 12/06/20 06:04 Labs: Laboratory Results - last 24 hr 12/03/20 06:35: Diff Path Review Reviewed 12/04/20 05:51: Diff Path Review Reviewed 12/05/20 05:24: Diff Path Review Reviewed 12/05/20 11:54: POC Glucose 126 H 12/05/20 16:16: POC Glucose 139 H 12/05/20 21:11: POC Glucose 153 H 12/06/20 06:04: Sodium 132 L, Potassium 4.2, Chloride 94 L, Carbon Dioxide 30.0, Anion Gap 8, BUN 24 H, Creatinine 3.86 H, Estim Creat Clear Calc 15.79, Est GFR (MDRD) Af Amer 15 L, Est GFR (MDRD) Non-Af 13 L, BUN/Creatinine Ratio 6.2 L, Glucose 123 H, Calcium 8.4 L, Total Bilirubin 1.30 H, Direct Bilirubin 0.93 H, AST 16, ALT 15, Alkaline Phosphatase 522 H, Total Protein 7.3, Albumin 2.0 L, Globulin 5.3 H 12/06/20 06:04: WBC 15.3 H, RBC 3.42 L, Hgb 9.8 L, Hct 30.7 L, MCV 89.8, MCH 28.7, MCHC 31.9 L, RDW Std Deviation 65.5 H, RDW Coeff of Grazyna 22.4 H, Plt Count 392, MPV 10.4, Immature Gran % (Auto) 4.800 H, Neut % (Auto) 72.8 H, Lymph % (Auto) 7.4 L, [place] % (Auto) 10.8 H, Eos % (Auto) 3.5, Baso % (Auto) 0.7, Absolute Neuts (auto) 11.2 H, Absolute Lymphs (auto) 1.13, Nucleated RBC % 0.2, Diff Path Review August12/06/20 06:36: POC Glucose 136 H Micro: Microbiology 11/28/20 08:28 Blood Culture (Wb) - Left Forearm Blood Culture - Final No growth in 5 days. 11/28/20 08:22 Blood Culture (Wb) - Left Hand Blood Culture - Final No growth in 5 days. 11/25/20 12:02 Mucosa - Nose SARS-CoV-2 Antigen (Rapid) - Final Radiography Diagnostic Testing: Radiology Impression Abdomen CT 12/05/20 12:16 IMPRESSION: 1. Moderate atelectasis of the bilateral lower lobes with small to moderate size pleural effusions. 2. Small to moderate amount of abdominal and pelvic ascites 3. Contracted gallbladder containing several tiny stones Electronically Signed: Ender Arroyo MD at 16:32 EDT , Service support , Physical Exam Const alert, oriented x3 and no apparent distress General Appearance: cooperative and comfortable Resp Resp Narrative: Diminished breath sounds, on nasal O2 Extremity Extremity Narrative: No pitting edema. AV fistula positive thrill and bruit Psych Appearance: grossly normal and appropriate Assessment & Plan Assessment/Plan (1) ESRD (end stage renal disease) on dialysis: PLAN: Patient tolerated dialysis yesterday, no acute indication for [employer] today. We will plan for next dialysis tomorrow and UF as patient/blood pressure tolerates. Depending upon blood pressure and predialysis weight tomorrow, will try and challenge UF with HD. She will have a new lowered dry weight by time of discharge. Patient is on regular diet, will monitor potassium trends and can adjust potassium bath with HD. (2) Anemia: PLAN: We will monitor hemoglobin trends and give BARBRA if indicated. Hemoglobin 9.8 today (3) HTN (hypertension): PLAN: Blood pressure is now on low side, hydralazine has been stopped. She is on Lopressor 50 mg twice daily, recommend to hold this morning's of dialysis. Discussed with patient importance of not taking blood pressure meds pre-dialysis in outpatient setting. (4) CHF exacerbation: QUALIFIERS: Heart failure type: unspecified Qualified Code(s): I50.9 - Heart failure, unspecified PLAN: Clinically improved. Patient will have a new lowered dry weight by time of discharge (5) Elevated liver enzymes: PLAN: Surgery following, no plan for surgery at this time. MRCP unable to be preformed due to concerns regarding clip and pacemaker. On meropenem. CT of abdomen showed small to moderate amount abdominal and pelvic ascites, small to moderate sized pleural effusions.
[2020-12-06] MEDS: oxyCODONE 5 MG Tablet PO (11:24)
[2020-12-06 11:26] LABS: Bedside Glucose 160 mg/dL (70-110)
[2020-12-06 11:30] VITALS: BP 111/56; PULSE 76; RESP 18; TEMP 36.7; O2SAT 93
--- NOTE | 2020-12-06 12:10 | DS.PCM_ITS ---
Providers Date of Admission: 11/25/20 Primary Care Physician: Dr. Alphonse Marr, Consultations 11/26/20 15:16 Consult: Nephrology Routine Consulting Provider: Liat Parker Reason for Consult: ESRD EMERGENT Consult: No MD Notified: Yes Date Notified: 11/26/20 Time Notified: 15:16 Method of Notification: Text 11/28/20 14:30 Consult: General Surgery Routine Consulting Provider: Morris Valentino Reason for Consult: acute cholecystitis EMERGENT Consult: No Notified: Yes Date Notified: 11/28/20 Time Notified: 14:30 Method of Notification: Text Reason For Visit: ACUTE CHF EXACERBATION / CP / HYPOXIA Diagnosis Discharge Diagnosis (1) ESRD (end stage renal disease) on dialysis: Status: Acute Code(s): N18.6 - End stage renal disease; Z99.2 - Dependence on renal dialysis (2) Anemia: Status: Acute Code(s): D64.9 - Anemia, unspecified (3) HTN (hypertension): Status: Chronic Code(s): I10 - Essential (primary) hypertension (4) CHF exacerbation: Status: Chronic Code(s): I50.9 - Heart failure, unspecified Qualifiers: Heart failure type: unspecified Qualified Code(s): I50.9 - Heart failure, unspecified (5) Elevated liver enzymes: Status: Acute Code(s): R74.8 - Abnormal levels of other serum enzymes Medications at Discharge Home Medications ascorbic acid (vitamin C) 500 mg PO DAILY 11/25/20 atorvastatin 40 mg PO DAILY 11/25/20 cholecalciferol (vitamin D3) 125 mcg PO DAILY 11/25/20 furosemide 20 mg PO DAILY 11/25/20 furosemide 40 mg PO BID 11/25/20 hydralazine 50 mg PO TID 11/25/20 hydroxyzine HCl 25 mg PO TID 11/25/20 insulin lispro [Humalog U-100 Insulin] 11/25/20 metoprolol succinate 50 mg PO BID 11/25/20 omeprazole 40 mg PO DAILY 11/25/20 ondansetron HCl 4 mg PO PRN PRN 11/25/20 Insulin Basal Pump (Pt's Own) [Pump, Basal] 1 unit SUBCUT Q24 #0 12/06/20 insulin lispro [Humalog KwikPen Insulin] See Protocol SUBCUT ACHS #0 ml 12/06/20 levofloxacin 250 mg PO Q48H #8 tab 12/06/20 Hospital Course Operations None Procedures 2-D Echocardiogram, Paracentesis and Thoracentesis Summary of Care Provided Minutes Spent on Discharge: 45 Hospital Course: Mrs. Mesa is a 60-year-old white female with complicated medical history who presented to [facility] on 11/25/2020 with complaints of chest pain and shortness of breath. Her chest pain was substernal and started prior to her arrival while she was on dialysis. She reported that it did not radiate and had no other associated symptoms. She had been on Eliquis until 3 weeks prior to admission. This was discontinued secondary to severe nosebleeds. She did indicate that she had worsening exertional dyspnea but no chest pain in approximately the month prior to presentation. On initial evaluation by the hospital service her pain had resolved. And she was initially admitted with acute decompensated diastolic heart failure with dyspnea/hypoxia and treated with Lasix, as the patient still does make urine, and nephrology was consulted for continuation of their HD. An echocardiogram was performed shortly after admission and showed an EF of 55% with a mildly dilated RV and mild global right ventricular systolic function, stable bioprosthetic mitral valve, and a right ventricular systolic pressure [address] of her chest was done on admission was negative for pulmonary embolism. It did show peribronchial thickening and interstitial prominence that was suggestive of volume overload and pleural effusion was noted. Her alk phos and bilirubin were markedly elevated and and ultrasound of her gallbladder was performed that showed mild hepatomegaly and diffuse fatty infiltration with sludge in the gallbladder. Surgery was consulted and recommended a HIDA scan with ejection fraction as well as a CT with oral contrast. A HIDA scan was performed on 11/29/2020 but unfortunately had nonvisualization of the gallbladder and was not beneficial to decisions with regard to her abdominal pain. Ascites with bilateral pleural e ffusions cholelithiasis. Given the findings on the CT thoracentesis on the right was performed 400 cc of keanu fluid was withdrawn from the pleural space. This was transudate of in nature. A paracentesis was obtained and 2280 mL of keanu-colored fluid were removed. Fluid studies were unfortunately not obtained and therefore SAAG score cannot be calculated. Pathology results however show no malignant cells present. An MRCP was then recommended although the patient had a pacemaker. Radiology did not feel comfortable performing an MR with her pacemaker present and therefore this was canceled. A repeat CT of her abdomen pelvis was performed on 12/05/2020 and was stable when compared to previous CT results. It was noted she had persistent bilateral pleural effusions right greater than left and she was reevaluated for repeat thoracentesis although there was not enough fluid to tap at that time. Her alk phos and bilirubin trended down slowly with time but had not quite normalized at discharge. General surgery did not feel that this was related to any gallbladder disease and deferred any surgical intervention at this time. Her respiratory status had significantly improved and she was on 2-3 L nasal cannula. She was discharged in stable condition [facility] on 12/06/[facility]. Recommend follow- up with her primary care physician in 1 week. She was discharged with Levaquin 250 mg every other day to complete his course for potential colitis given her persistent white count elevation. This elevation appears to be chronic however was slightly elevated beyond her baseline. Her abdominal pain had resolved with treatment. Discharge diagnoses: Acute on chronic hypoxic respiratory insufficiency Acute on chronic HFpEF Elevated alk phos Elevated bilirubin Acute on chronic leukocytosis Transudate of right pleural effusion Ascites End-stage renal disease-HD dependent Chronic anemia CAD Mitral valve replacement-bioprosthetic valve Hypertension Hyperlipidemia PAF DM-2 GERD Physical Exam Const alert, oriented x3 and no apparent distress Constitutional Narrative: Overweight white female sitting up in a chair at the bedside, appears well, nontoxic, reports her pain is significantly better and has no shortness of breath, wears 2 L at baseline, patient appears much older than stated age General Appearance: cooperative, comfortable, well kempt, well developed and appears older than stated age Exam Limitations: no limitations Nutritional Appearance: overweight HEENT normocephalic, head/scalp atraumatic, moist oral mucous membranes and oropharynx normal Eyes PERRL, EOMs intact bilaterally and conjunctivae normal Neck no lymphadenopathy, supple and no JVD Neck Narrative: Trachea midline, no thyroid enlargement noted Resp normal respiratory effort, no retractions, no use of accessory muscles and clear to auscultation bilaterally Resp Narrative: Diminished at bilateral bases but no adventitious lung sounds Auscultation: Negative for crackles, rales, rhonchi or wheezes Cardio regular rate, regular rhythm, S1 normal heart sound, S2 normal heart sound, no murmurs, no rub, no gallops, no clicks and no JVD GI normal to inspection, nondistended, normoactive bowel sounds, soft to palpation, non-tender and non-distended Palpation: tender other (Diffusely tender) Extremity normal to inspection, full ROM and no clubbing, cyanosis or edema Extremity Narrative: Trace bilateral lower extremity edema, no clubbing or cyanosis General Extremity: edema Skin no rashes or lesions noted, no wounds, skin turgor normal, no jaundice, no petechiae and no mottling Skin Narrative: Pale skin Neuro oriented x3, CN's II-XII intact bilaterally, moves all extremities and no focal motor deficits Sensorium / Orientation: awake, alert, oriented to person, oriented to place and oriented to time Speech: speech normal Psych affect normal Medical Records Data Medical Nutrition Assessment Dietitian: Malnutrition Criteria Met Start: 11/25/20 17:20 Freq: Status: Active Protocol: Document 11/25/20 17:32 SHARAD (Rec: 11/25/20 17:32 [facility] [id number]) Nutrition Malnutrition Evidence of Malnutrition Exists No Intake Problem Inadequate Oral Intake Etiology related to nausea Signs/Symptoms as evidenced by poor po intake x 2 wks prior to admission. Status Active Problem Clinical Problem Altered Nutrient-Related Laboratory Values Etiology related to renal/endocrine dysfunction Signs/Symptoms as evidenced by Na 134, K 2.7, Cr 2.33, gluc 118 Status Active Problem Recommendation Dietitian Recommendations/Changes Will change diet to Consistent CHO/ Sodium Restriction / 1500 ml fluid/day Will provide 120 ml Nepro CHO Steady w/ meals for increased nutrition if consumed Weight / BMI Weight Weight: 80.5 kg Body Mass Index (BMI) 29.5 ABG / Lab / Microbiology Data Result Diagrams: 12/06/20 06:04 12/06/20 06:04 Laboratory: Laboratory Results - last 24 hr 12/03/20 06:35: Diff Path Review Reviewed 12/04/20 05:51: Diff Path Review Reviewed 12/05/20 05:24: Diff Path Review Reviewed 12/05/20 16:16: POC Glucose 139 H 12/05/20 21:11: POC Glucose 153 H 12/06/20 06:04: Sodium 132 L, Potassium 4.2, Chloride 94 L, Carbon Dioxide 30.0, Anion Gap 8, BUN 24 H, Creatinine 3.86 H, Estim Creat Clear Calc 15.79, Est GFR (MDRD) Af Amer 15 L, Est GFR (MDRD) Non-Af 13 L, BUN/Creatinine Ratio 6.2 L, Glucose 123 H, Calcium 8.4 L, Total Bilirubin 1.30 H, Direct Bilirubin 0.93 H, AST 16, ALT 15, Alkaline Phosphatase 522 H, Total Protein 7.3, Albumin 2.0 L, Globulin 5.3 H 12/06/20 06:04: WBC 15.3 H, RBC 3.42 L, Hgb 9.8 L, Hct 30.7 L, MCV 89.8, MCH 28.7, MCHC 31.9 L, RDW Std Deviation 65.5 H, RDW Coeff of Grazyna 22.4 H, Plt Count 392, MPV 10.4, Immature Gran % (Auto) 4.800 H, Neut % (Auto) 72.8 H, Lymph % (Auto) 7.4 L, Riley % (Auto) 10.8 H, Eos % (Auto) 3.5, Baso % (Auto) 0.7, Absolute Neuts (auto) 11.2 H, Absolute Lymphs (auto) 1.13, Nucleated RBC % 0.2, Diff Path Review August12/06/20 06:36: POC Glucose 136 H 12/06/20 11:17: POC Glucose 160 H Microbiology: Microbiology 11/28/20 08:28 Blood Culture (Wb) - Left Forearm Blood Culture - Final No growth in 5 days. 11/28/20 08:22 Blood Culture (Wb) - Left Hand Blood Culture - Final No growth in 5 days. 11/25/20 12:02 Mucosa - Nose SARS-CoV-2 Antigen (Rapid) - Final Radiography Diagnostic Testing: Radiology Impression Abdomen CT 12/05/20 12:16 IMPRESSION: 1. Moderate atelectasis of the bilateral lower lobes with small to moderate size pleural effusions. 2. Small to moderate amount of abdominal and pelvic ascites 3. Contracted gallbladder containing several tiny stones Electronically Signed: Ender Arroyo MD at 16:32 EDT , Service support , Meaningful Use Info Meaningful Use Diagnoses (Choose all that apply): CHF CHF JUSTIN/ARB ordered at discharge?: No Reason JUSTIN/ARB not ordered?: Worsening renal disease Documented LVEF (%): 55 Discharge Plan Admission Admit Date/Time: 11/25/20 15:46 Primary Reason for Your Visit: Shortness of breath Attending Provider: Ann Aguilar Primary Care Provider: Alphonse Marr Consulting Providers: Liat Parker ; Morris Valentino Instructions Patient Instructions: ED Chest Pain, Noncardiac Discharge Orders/Prescriptions Prescriptions: New insulin lispro [Humalog KwikPen Insulin] 100 unit/mL Insulin Pen See Protocol unit subcut ACHS Qty: 0 RF: 0 Insulin Basal Pump (Pt's Own) [Pump, Basal] 1 unit subcut Q24 Qty: 0 RF: 0 levofloxacin 250 mg tablet 250 mg PO Q48H Qty: 8 RF: 0 Continued furosemide 40 mg Tablet 40 mg PO BID RF: 0 atorvastatin 40 mg tablet 40 mg PO DAILY RF: 0 metoprolol succinate 50 mg tablet extended release 24 hr 50 mg PO BID RF: 0 ondansetron HCl 4 mg tablet 4 mg PO PRN PRN (Reason: Nausea) RF: 0 omeprazole 40 mg capsule,delayed release(DR/EC) 40 mg PO DAILY RF: 0 hydroxyzine HCl 25 mg tablet 25 mg PO TID RF: 0 hydralazine 50 mg tablet 50 mg PO TID RF: 0 furosemide 20 mg Tablet 20 mg PO DAILY RF: 0 cholecalciferol (vitamin D3) 125 mcg (5,000 unit) Capsule 125 mcg PO DAILY RF: 0 ascorbic acid (vitamin C) 500 mg Tablet 500 mg PO DAILY RF: 0 insulin lispro [Humalog U-100 Insulin] 100 unit/mL solution RF: 0 Referrals / Follow Up: Alphonse Marr DO [Primary Care Provider] - Within 1 Week Disposition Disposition (needs filled in before D/C Order can be placed): [facility] Charges/Coding Visit Charges Inpatient E&M: 34244 Disch Hosp
[2020-12-06 12:45] LABS: Pathologist Review Reviewed
--- NOTE | 2020-12-06 13:27 | TREXTCAR_ITS ---
Diet 12/06/20 06:08 Diet: Regular - General Food consistency:: Regular Liquid Consistency:: Regular/Thin Dietary Modifications:: Consistent Carbohydrate Routine Orders/Code Status Suppository Frequency: Daily PRN O2 Liters per Minute: 2-3 O2 Frequency: Continuous Keep PO Greater than or Equal to (%): 92 Routine Lab Work: CBC (Repeat in 2 days), BMP (Repeat in 2 days) and - (Hepatic panel in 2 days) Code Status: Full Code Wound(s) post left chest: Wound Type: Puncture rt post back: Wound Type: Puncture rt abd: Wound Type: Puncture Suggestions for Active Care Change Position every (hours): 2 Hours to sit in a chair: 2 Times a day to sit in chair: 2 Therapies Weight Bearing: Full weight bearing Physical Therapy: Eval and Treat Occupational Therapy: Eval and Treat Problem/Diagnosis (1) ESRD (end stage renal disease) on dialysis: Status: Acute (2) Anemia: Status: Acute (3) HTN (hypertension): Status: Chronic (4) CHF exacerbation: Status: Chronic (5) Elevated liver enzymes: Status: Acute Allergies/Procedures Done in Hospital Allergies amoxicillin Allergy (Verified 11/25/20 11:39) Hives benzonatate [From Tessalon Perles] Allergy (Verified 11/25/20 11:39) Hives lansoprazole [From Prevacid] Allergy (Verified 11/25/20 11:39) Other latex Allergy (Verified 11/25/20 11:39) Hives Penicillins Allergy (Verified 11/25/20 11:39) Hives Procedures: 2-D Echocardiogram, Paracentesis and Thoracentesis Type of Care/Length of Stay Estimated LOS: Convalescent Care Less Than 30 days Type of Care Needed: Skilled Rehab Potential: Fair Prognosis: Poor Additional Orders/Day of Discharge Day of Discharge: 12/06/20 Dietary and Speech Recommendations Dietitian Recommendations/Changes: Continue Carbohydrate-Controlled/ Sodium- Restricted with 1500 ml fluid/day. Continue 120 ml Nepro CHO Steady w/ meals for increased nutrition if consumed. Discharge Plan Admission Admit Date/Time: 11/25/20 15:46 Primary Reason for Your Visit: Shortness of breath Attending Provider: Ann Aguilar Primary Care Provider: Alphonse Marr Consulting Providers: Liat Parker ; [place],Morris Instructions Patient Instructions: ED Chest Pain, Noncardiac Discharge Orders/Prescriptions Prescriptions: New insulin lispro [Humalog KwikPen Insulin] 100 unit/mL Insulin Pen See Protocol unit subcut ACHS Qty: 0 RF: 0 Insulin Basal Pump (Pt's Own) [Pump, Basal] 1 unit subcut Q24 Qty: 0 RF: 0 levofloxacin 250 mg tablet 250 mg PO Q48H Qty: 8 RF: 0 Continued furosemide 40 mg Tablet 40 mg PO BID RF: 0 atorvastatin 40 mg tablet 40 mg PO DAILY RF: 0 metoprolol succinate 50 mg tablet extended release 24 hr 50 mg PO BID RF: 0 ondansetron HCl 4 mg tablet 4 mg PO PRN PRN (Reason: Nausea) RF: 0 omeprazole 40 mg capsule,delayed release(DR/EC) 40 mg PO DAILY RF: 0 hydroxyzine HCl 25 mg tablet 25 mg PO TID RF: 0 hydralazine 50 mg tablet 50 mg PO TID RF: 0 furosemide 20 mg Tablet 20 mg PO DAILY RF: 0 cholecalciferol (vitamin D3) 125 mcg (5,000 unit) Capsule 125 mcg PO DAILY RF: 0 ascorbic acid (vitamin C) 500 mg Tablet 500 mg PO DAILY RF: 0 insulin lispro [Humalog U-100 Insulin] 100 unit/mL solution RF: 0 Referrals / Follow Up: Alphonse Marr DO [Primary Care Provider] - Within 1 Week Disposition Disposition (needs filled in before D/C Order can be placed): Group Home Facility
--- NOTE | 2020-12-06 13:51 | CASEMGMT ---
Patient is ready for discharge to [facility] [place]. JINA arranged for patient to get picked up at [facility] via wc van by [facility]. 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 JINA also called Gl[facility] at [facility] and let her know as well. RN, patient, and corporate legal secretary were notified. Convalescent completed on [facility]. Plan: d/c to [facility] [place] under skilled level of care on a convalescent stay. [facility] transported via wc van. Ana REYES
--- NOTE | 2020-12-06 13:54 | NURSING ---
This RN called and gave report to OLINDA Mcmahon at the [facility].
== END 2020-12-06 15:31 | disposition skilled nursing facility (03) | DRG 291 ==
LOC: ED 14:57 → PCU 15:10
PROVIDERS: Student in an Organized Health Care Education/Training Program; Admitting Provider Family Medicine; Emergency Provider Emergency Medicine; PCP Student in an Organized Health Care Education/Training Program; Visit Provider Internal Medicine
DX: I13.2 Hypertensive heart and chronic kidney disease with heart failure and with stage 5 chronic kidney disease, or end stage renal disease (principal); N18.6 End stage renal disease; I50.33 Acute on chronic diastolic (congestive) heart failure; J96.11 Chronic respiratory failure with hypoxia; R18.8 Other ascites; E87.1 Hypo-osmolality and hyponatremia; J91.8 Pleural effusion in other conditions classified elsewhere; E87.70 Fluid overload, unspecified; E11.22 Type 2 diabetes mellitus with diabetic chronic kidney disease; E87.6 Hypokalemia; K82.8 Other specified diseases of gallbladder; R74.8 Abnormal levels of other serum enzymes; E11.649 Type 2 diabetes mellitus with hypoglycemia without coma; R10.84 Generalized abdominal pain; Z20.822 Contact with and (suspected) exposure to COVID-19; D63.8 Anemia in other chronic diseases classified elsewhere; I48.0 Paroxysmal atrial fibrillation; I25.10 Atherosclerotic heart disease of native coronary artery without angina pectoris; E78.5 Hyperlipidemia, unspecified; K21.9 Gastro-esophageal reflux disease without esophagitis; Z99.2 Dependence on renal dialysis; Z99.81 Dependence on supplemental oxygen; Z96.41 Presence of insulin pump (external) (internal); Z79.4 Long term (current) use of insulin; Z79.899 Other long term (current) drug therapy; Z87.891 Personal history of nicotine dependence; Z95.1 Presence of aortocoronary bypass graft; Z95.0 Presence of cardiac pacemaker; Z95.2 Presence of prosthetic heart valve; Z95.5 Presence of coronary angioplasty implant and graft
CPT/HCPCS: 32555; 36415; 49083; 71045; 71046; 71275; 74176; 76604; 76705; 78227; 80048; 80053; 80061; 80076; 81001; 82140; 82945; 82962; 83036; 83615; 83735; 83880; 84100; 84157; 84484; 85025; 85610; 87040; 87426; 88108; 88305; 88313; 89050; 90937; 93005; 93306; 94640; 97110; 97162; 97166; 97530; 97535; 97802; 97803; 99251; 99285; A9537; J2185; J7030; J7040; J7050; Q9967; A4216; G0257; G0463; J1940; J2405

== ENCOUNTER 2020-12-09 19:27 | Observation (INO) | payer MEDICARE, MEDICAID, SELFPAY ==
[2020-12-09 19:28] VITALS: BP 129/51; PULSE 90; RESP 17; TEMP 36.4; O2SAT 94; BMI 27.3
--- NOTE | 2020-12-09 20:11 | CT_ITS ---
ACR Level 3 findings have been noted. An addendum which confirms receipt of the report will follow. STUDY: CT BRAIN WITHOUT CONTRAST REASON FOR EXAM: Female, 60 years old. Numbness RADIATION DOSAGE (If Supplied By Facility): CTDIvol = ( 44.99 ) mGy, DLP = ( 829.85 ) mGycm TECHNIQUE: Transaxial CT imaging of the brain was performed without administration of intravenous contrast material. Individualized dose optimization techniques were used for this CT. COMPARISON: No relevant priors. FINDINGS: There is age right parietal infarct. There are bilateral age-indeterminate cerebellar infarcts. There is chronic right periventricular white matter hypodensity surrounding the frontal horn. There is no acute intracranial hemorrhage, extra parenchymal fluid collections or hydrocephalus. The skull is intact. CT/Brain/Head without Contrast IMPRESSION: 1. Age-indeterminate infarcts in the right parietal lobe and bilaterally in the cerebelli. In the presence of acute neurologic deficit consider acute infarct and/or MR confirmation. Electronically Signed: Angeline Veliz MD at 20:47 EDT Tel , Service support ,
--- NOTE | 2020-12-09 20:23 | EX.ED.DYSGE1 ---
HPI History of Present Illness Chief Complaint: Numb/Ting Informant: patient Onset/Context/Timing Onset: Today Timing: Continuous Quality: Numbness Location: Left upper extremity, left foot, and left face Worsened by: Nothing Relieved by: Nothing Narrative Narrative: Patient presents with paresthesias that began today. Patient states her right side started feeling numb while she was at dialysis. Patient states this resolved. Patient states that she started having numbness and weakness to her left arm, foot, and face. Patient states that weakness is better but she still has some paresthesias in this area. Patient states nothing makes it better nothing makes it worse. Patient denies any headaches. Patient admits to nausea but denies any vomiting. Patient admits to chronic back pain. [facility] Medical History (Updated 12/10/20 @ 00:[address] Tr Magallanes, ) CAD (coronary artery disease) CHF (congestive heart failure) CKD (chronic kidney disease) CKD (chronic kidney disease) stage V requiring chronic dialysis Diabetes Dialysis patient Former tobacco use HTN (hypertension) Hyperlipidemia ICD (implantable cardioverter-defibrillator) in place On home oxygen therapy PAF (paroxysmal atrial fibrillation) Pancreatitis Home Medications ascorbic acid (vitamin C) 500 mg PO DAILY 11/25/20 [History Last Taken 11/24/20] atorvastatin 40 mg PO DAILY 11/25/20 [History Last Taken 11/24/20] cholecalciferol (vitamin D3) 125 mcg PO DAILY 11/25/20 [History Last Taken 11/24/20] furosemide 20 mg PO DAILY 11/25/20 [History Last Taken 11/24/20] furosemide 40 mg PO BID 11/25/20 [History Last Taken 11/24/20] hydralazine 50 mg PO TID 11/25/20 [History Last Taken 11/25/20] hydroxyzine HCl 25 mg PO TID 11/25/20 [History Last Taken 11/25/20] insulin lispro [Humalog U-100 Insulin] 11/25/20 [History Last Taken Unknown] metoprolol succinate 50 mg PO BID 11/25/20 [History Last Taken 11/25/20] omeprazole 40 mg PO DAILY 11/25/20 [History Last Taken 11/24/20] ondansetron HCl 4 mg PO PRN PRN 11/25/20 [History Last Taken 11/25/20] Insulin Basal Pump (Pt's Own) [Pump, Basal] 1 unit SUBCUT Q24 #0 12/06/20 [Rx Last Taken Unknown] insulin lispro [Humalog KwikPen Insulin] See Protocol SUBCUT ACHS #0 ml 12/06/20 [Rx Last Taken Unknown] levofloxacin 250 mg PO Q48H #8 tab 12/06/20 [Rx Last Taken Unknown] Allergy/AdvReac Type Severity Reaction Status Date / Time amoxicillin Allergy Hives Verified 11/25/20 11:39 benzonatate Allergy Hives Verified 11/25/20 11:39 [From Tessalon Perles] lansoprazole [From Prevacid] Allergy Other Verified 11/25/20 11:39 latex Allergy Hives Verified 11/25/20 11:39 Penicillins Allergy Hives Verified 11/25/20 11:39 silicone AdvReac Hives Verified 12/09/20 23:46 Family History Mother Hypertension Diabetes Heart disease Father Heart disease Hypertension Diabetes Kidney disease Surgical History History of appendectomy History of arteriovenous graft History of heart artery stent History of mitral valve replacement Hx of CABG Social History household members: spouse Smoking Status: Former smoker how long ago did patient quit smoking: Quit 4 years prior, smoked 1 ppd cig tob since teenager. alcohol intake: never substance use type: does not use ROS ROS ED Constitutional Constitutional ED: Denies chills or fever(s) Eyes Eyes: Denies blurry vision or change in vision ENT ENT ED: Denies rhinorrhea or sore throat Cardiovascular Cardiovascular: Denies chest pain or palpitations Respiratory/Chest Respiratory/Chest: Reports dyspnea; Denies cough Gastrointestinal Gastrointestinal: Reports nausea; Denies vomiting Genitourinary Genitourinary ED: Denies dysuria or hematuria Musculoskeletal Musculoskeletal: Reports back pain; Denies neck pain Integumentary Denies abscess or rash Neurologic Neurologic: Reports paresthesias and weakness; Denies headache(s) Allergic/Immunologic Allergic/Immunologic ED: Denies mouth swelling or urticaria EXAM Physical Exam Const Vital Signs: 12/09/20 19:28 12/09/20 23:13 Temperature 97.6 F L 98.2 F Temperature Source Oral Oral Pulse Rate 90 86 Respiratory Rate 17 17 Blood Pressure 129/51 H 132/61 H Blood Pressure Mean 77 84 Pulse Ox 94 95 Oxygen Delivery Method Nasal Cannula Nasal Cannula Oxygen Flow Rate (L/min) 4 3.5 Positive well nourished and well developed General Appearance ED: well developed HEENT Reports moist mucous membranes Neck supple and no JVD Resp normal respiratory effort and clear to auscultation bilaterally Cardio regular rate, regular rhythm and no murmurs GI normal to inspection, nondistended, normoactive bowel sounds and non-tender Palpation: soft Extremity normal to inspection General Extremety ED: Negative for edema or tenderness General Extremity: Negative for edema Neuro oriented x3, CN's II-XII intact bilaterally and no sensory deficits noted Sensorium / Orientation: alert Motor Exam: strength 5/5 throughout Psych mental status grossly normal Skin no rashes or lesions noted MDM MDM MDM Narrative Medical decision making narrative: EKG was obtained. On my interpretation, shows a sinus rhythm with a first-degree AV block with a rate of 88. QRS and QTc intervals were normal. [place] was normal. There are no acute ST or T wave changes. CBC shows a mild leukocytosis of 14.1. Comprehensive metabolic profile was essentially within normal limits. BUN was 26 and creatinine was 3.87. These are consistent with prior results. The patient is on dialysis. High-sensitivity troponin was normal. CT scan of the brain was obtained. There are age-indeterminate infarcts in the right parietal area and bilateral cerebellar areas. On reevaluation, patient had no further paresthesias. There were no motor or sensory deficits. Case was discussed with the hospitalist. She will admit the patient to her service for observation for TIA evaluation. Patient understood and was agreeable with the plan. All questions were answered. Lab Data Attestation: I reviewed the patient's lab results. Labs: Laboratory Results - last 24 hr 12/09/20 12/09/20 20:03 20:03 WBC 14.1 H RBC 3.45 L Hgb 9.9 L Hct 32.5 L MCV 94.2 MCH 28.7 MCHC 30.5 L RDW Std Deviation 77.0 H RDW Coeff of Grazyna 23.2 H Plt Count 551 H MPV 10.2 Immature Gran % (Auto) 1.100 H Neut % (Auto) 76.9 H Lymph % (Auto) 6.8 L [place] % (Auto) 12.7 H Eos % (Auto) 2.0 Baso % (Auto) 0.5 Absolute Neuts (auto) 10.9 H Absolute Lymphs (auto) 0.96 Nucleated RBC % 0 Differential Comment SCANNED Diff Path Review May foll Hypochromasia 1+ Anisocytosis 1+ Target Cells RARE Sodium 134 L Potassium 4.6 Chloride 95 L Carbon Dioxide 33.0 H Anion Gap 6 BUN 26 H Creatinine 3.87 H Estim Creat Clear Calc 15.75 Est GFR (MDRD) Af Amer 15 L Est GFR (MDRD) Non-Af 13 L BUN/Creatinine Ratio 6.7 L Glucose 194 H Calcium 8.9 Total Bilirubin 1.00 AST 22 ALT 18 Alkaline Phosphatase 409 H Troponin I High Sens 22 Total Protein 8.4 H Albumin 2.3 L Globulin 6.1 H Albumin/Globulin Ratio 0.4 L Radiography Diagnostic Testing: Radiology Impression Brain CT 12/09/20 20:11 IMPRESSION: 1. Age-indeterminate infarcts in the right parietal lobe and bilaterally in the cerebelli. In the presence of acute neurologic deficit consider acute infarct and/or MR confirmation. Electronically Signed: Angeline Veliz MD at 20:47 EDT Tel , Service support , ADDENDUM: 12/09/202103 IMPRESSION: 1. Age-indeterminate infarcts in the right parietal lobe and bilaterally in the cerebelli. In the presence of acute neurologic deficit consider acute infarct and/or MR confirmation. N.B. : Dr Elpidio DO, confirmed on 12/09/2020 20:57:37 (ET) that the healthcare facility has received the radiology report. Electronically Signed: Angeline Veliz MD at 20:47 EDT Tel , Service support , EKG Initial EKG: Attestation: I personally reviewed and interpreted this EKG as follows: Interpretation: Sinus Rhythm (With first-degree AV block with a rate of 88), No Acute Injury Pattern and Non-Specific ST Changes Prior EKG tracings: available for review Prior: Unchanged (11/25/2020) Treatment and Re-Evaluation Vital Sign Attestation:: Vital signs were reviewed prior to admission. They are stable. Discharge Plan Dx/Rx/DC Orders Clinical Impression: Brain TIA Disposition Disposition: Acute Care Hospital [facility] Discharge Date/Time: 12/09/20 23:29
[2020-12-09 20:38] LABS: Absolute Lymphocyte Count 0.96 X10^3/uL (0.83-4.51); Absolute Neutrophil Count 10.9 X10^3/uL (2.0-7.7); Basophil# 0.07 X10^3/uL; Basophil% 0.5 % (0-1); Eosinophil# 0.28 X10^3/uL; Hematocrit 32.5 % (37-47); Hemoglobin 9.9 g/dL (12.0-15.0); Lymphocyte # 0.96 X10^3/ul (0.83-4.51); Lymphocyte % 6.8 % (19-41); Mean Corp Hgb Conc 30.5 g/dL (32-36); Mean Corpuscular Hgb 28.7 pg (27.0-32.0); Mean Corpuscular Volume 94.2 fL (81-99); Mean Platelet Vol. 10.2 fl (6.2-12.0); Monocyte# 1.79 X10^3/uL; Monocyte% 12.7 % (0-10); NRBC Flagged by Analyzer 0 % (0-5); Neutrophil # 10.88 X10^3/uL (2.7-7.7); Neutrophil % 76.9 % (47-70); POSITIVE DIFFERENTIAL YES; POSITIVE MORPHOLOGY YES; Platelet Count 551 K/mm3 (150-450); RBC Distribution Width CV 23.2 % (11.6-14.6); Red Blood Count 3.45 M/mm3 (4.2-5.4); White Blood Count 14.1 K/mm3 (4.4-11.0)
[2020-12-09 20:56] LABS: Differential Indicated SCAN CRITERIA MET
[2020-12-09 21:29] LABS: ALB/GLOB Ratio 0.4 RATIO (0.9-2.4); AST(SGOT) 22 U/L (15-37); Alanine Aminotransfer ALT/SGPT 18 U/L (13-56); Albumin, Serum 2.3 g/dL (3.2-5.0); Alkaline Phosphatase 409 U/L (45-117); Anion Gap 6 (5-15); BUN 26 mg/dL (7-18); BUN/Creat Ratio 6.7 RATIO (10-20); Calcium,Total 8.9 mg/dL (8.5-10.1); Chloride 95 mmol/L (98-107); Creatinine, Serum 3.87 mg/dL (0.55-1.02); EST Glomerular Filtration Rate 13 mL/min (>60); Est Glom Filt Rate - Afr Amer 15 mL/min (>60); Estimated Creatinine Clearance 15.75 ml/min; Globulin 6.1 g/dL (2.2-4.2); Glucose 194 mg/dL (74-106); Potassium 4.6 mmol/L (3.5-5.1); Protein, Total 8.4 g/dL (6.4-8.2); Sodium Level 134 mmol/L (136-145); Troponin-I HS 22 pg/mL (3.0-54.0)
[2020-12-09 21:37] LABS: Anisocytosis 1+; Differential Comment SCANNED; Hypochromasia 1+; Target Cells RARE
--- NOTE | 2020-12-09 22:45 | EKG12_ITS ---
Test Reason : Blood Pressure : / mmHG Vent. Rate : 088 BPM Atrial Rate : 088 BPM P-R Int : 252 ms QRS Dur : 094 ms QT Int : 406 ms P-R-T Axes : 063 -19 094 degrees QTc Int : 491 ms Sinus rhythm with 1st degree A-V block Septal infarct , age undetermined Abnormal ECG Confirmed by MAHESH RUSSO, JAYY ([id number]), editor newspaper SHELDON MERAZ ([id number]) on 12/12/2020 12:54:46 PM Referred By: DR POP Confirmed By:JAYY ARAGON MD
[2020-12-09 23:13] VITALS: BP 132/61; PULSE 86; RESP 17; TEMP 36.8; O2SAT 95
--- NOTE | 2020-12-09 23:20 | HP.PCM.HOS_ITS ---
HPI - General General Date of Admission: 12/09/20 Date of Service: 12/09/20 Chief Complaint: Paresthesias HPI Narrative The patient is a 60 y/o F w/ PMHx: PAF, CAD s/p CABG and PCI, PAD, AOCD/Chronic anemia, ESRD on HD, Valvular Heart Disease s/p MVR, Chronic Diastolic CHF, HTN, HLD, GERD, recent admission 11/25/20-12/06/20 for treatment of acute CHF exacerbation, acutely elevated LFTs who now represents to the [facility] ED on 12/09/20 with history of on paresthesias initially to the right side of the face while she was at dialysis which quickly resolved within minutes but then she started to have following completion onset of numbness and sensation of weakness to the left side of her face, left upper extremity and distal leg eventually resolving during ED evaluation. Work-up in the ED included T 97.6, heart rate 90, BP 129/51, respiratory rate 17, 94% on 4 L nasal cannula, CBC with WC 14.1, hemoglobin 9.9, platelet 551 with left shift, CMP with sodium 134, chloride 95, carbon oxide 33, BUN/creatinine 26/3.87, glucose 194, alk phos 4 9 otherwise not marked appearing hepatic profile, high-sensitivity troponin 22, rapid Covid antigen negative, EKG was sinus rhythm with no acute evidence of ischemia, CT of the head with age-indeterminate infarcts in the right parietal lobe and bilaterally in the cerebelli. [facility] Medical History (Updated 12/10/20 @ 04:[address] Daiana Guajardo MD) CAD (coronary artery disease) CHF (congestive heart failure) CKD (chronic kidney disease) CKD (chronic kidney disease) stage V requiring chronic dialysis Diabetes Dialysis patient Former tobacco use HTN (hypertension) Hyperlipidemia ICD (implantable cardioverter-defibrillator) in place On home oxygen therapy PAF (paroxysmal atrial fibrillation) Pancreatitis Home Medications ascorbic acid (vitamin C) 500 mg PO DAILY 11/25/20 [History Last Taken 11/24/20] atorvastatin 40 mg PO DAILY 11/25/20 [History Last Taken 11/24/20] cholecalciferol (vitamin D3) 125 mcg PO DAILY 11/25/20 [History Last Taken 11/24/20] furosemide 20 mg PO DAILY 11/25/20 [History Last Taken 11/24/20] furosemide 40 mg PO BID 11/25/20 [History Last Taken 11/24/20] hydralazine 50 mg PO TID 11/25/20 [History Last Taken 11/25/20] hydroxyzine HCl 25 mg PO TID 11/25/20 [History Last Taken 11/25/20] insulin lispro [Humalog U-100 Insulin] 11/25/20 [History Last Taken Unknown] metoprolol succinate 50 mg PO BID 11/25/20 [History Last Taken 11/25/20] omeprazole 40 mg PO DAILY 11/25/20 [History Last Taken 11/24/20] ondansetron HCl 4 mg PO PRN PRN 11/25/20 [History Last Taken 11/25/20] Insulin Basal Pump (Pt's Own) [Pump, Basal] 1 unit SUBCUT Q24 #0 12/06/20 [Rx Last Taken Unknown] insulin lispro [Humalog KwikPen Insulin] See Protocol SUBCUT ACHS #0 ml 12/06/20 [Rx Last Taken Unknown] levofloxacin 250 mg PO Q48H #8 tab 12/06/20 [Rx Last Taken Unknown] Allergy/AdvReac Type Severity Reaction Status Date / Time amoxicillin Allergy Hives Verified 11/25/20 11:39 benzonatate Allergy Hives Verified 11/25/20 11:39 [From Tessalon Perles] lansoprazole [From Prevacid] Allergy Other Verified 11/25/20 11:39 latex Allergy Hives Verified 11/25/20 11:39 Penicillins Allergy Hives Verified 11/25/20 11:39 silicone AdvReac Hives Verified 12/09/20 23:46 Family History Mother Hypertension Diabetes Heart disease Father Heart disease Hypertension Diabetes Kidney disease Surgical History History of appendectomy History of arteriovenous graft History of heart artery stent History of mitral valve replacement Hx of CABG Social History (Updated 12/10/20 @ 04:[address] Daiana Guajardo MD) housing: [facility] Smoking Status: Former smoker how long ago did patient quit smoking: Quit 4 years prior, smoked 1 ppd cig tob since teenager. alcohol intake: never substance use type: does not use ROS ROS Narrative Admission Review of Systems: CONSTITUTIONAL: No weight loss, fever, chills, + weakness or fatigue. HEENT: Eyes: No visual loss, blurred vision, double vision or yellow sclerae. Ears, Nose, Throat: No hearing loss, sneezing, congestion, runny nose or sore throat. SKIN: No rash or itching, lesions, wounds. CARDIOVASCULAR: No chest pain, chest pressure or chest discomfort, No palpitations, edema, orthopnea, syncopal events. RESPIRATORY: No shortness of breath, No cough or sputum, wheezing, hemoptysis. GASTROINTESTINAL: + anorexia, abdominal pain, No nausea, vomiting, diarrhea, melena, BRBPR. GENITOURINARY: No dysuria, frequency, urgency or retention. NEUROLOGICAL: + Paresthesias. No headache, dizziness, syncope, paralysis, ataxia, numbness or tingling in the extremities, focal weakness, change in bowel or bladder control, seizure. MUSCULOSKELETAL: + muscle, back pain, joint pain or stiffness. HEMATOLOGIC: + anemia, bleeding or bruising. LYMPHATICS: No enlarged nodes. No history of splenectomy. PSYCHIATRIC: No history of depression or anxiety. ENDOCRINOLOGIC: No reports of sweating, cold or heat intolerance. No polyuria or polydipsia. ALLERGIES: No history of asthma, hives, eczema or rhinitis. Vital Signs Vital Signs Vital Signs: 12/09/20 19:28 12/09/20 23:13 Temperature 97.6 F L 98.2 F Temperature Source Oral Oral Pulse Rate 90 86 Respiratory Rate 17 17 Blood Pressure 129/51 H 132/61 H Blood Pressure Mean 77 84 Pulse Ox 94 95 Oxygen Delivery Method Nasal Cannula Nasal Cannula Oxygen Flow Rate (L/min) 4 3.5 Weight Weight: 185 lb 10.067 oz Body Mass Index (BMI) 27.3 Physical Exam Narrative Physical Examination: General: Awake, alert, oriented x 3 and cooperative, seated upright in the ED bed, fatigued appearing, denies any current paresthesias, seem resolved. Skin: Normal color, normal turgor, no icterus, no cyanosis. HEENT: AT/NC, EOMI, PERRLA, MMM, no carotid bruits, no marked JVD noted. Lungs: Diminished, greater bases, appropriate effort, no ronchi or wheezing. Heart: Regular rate and rhythm; no gallop, rub audible. Abdomen: Soft, overweight, NTTP, ND, normal BS, no obvious HSM. Extremities: No cyanosis, no clubbing, mild bilateral ankle edema, not markedly pitting. Neurological: Patient awake, alert, oriented as noted, cognitive function intact; pupils equally reactive to light and accommodation, cranial nerves II- XII grossly normal, moving all 4 extremities, no focal deficits, strength moderately globally decreased secondary to acute presentation. Psychiatric: Affect appears mildly fatigued otherwise normal, no acute evidence of depressive or anxiety feelings. Results Lab / Micro Data Result Diagrams: 12/09/20 20:03 12/09/20 20:03 Labs: Laboratory Results - last 24 hr 12/09/20 20:03: WBC 14.1 H, RBC 3.45 L, Hgb 9.9 L, Hct 32.5 L, MCV 94.2, MCH 28.7, MCHC 30.5 L, RDW Std Deviation 77.0 H, RDW Coeff of Grazyna 23.2 H, Plt Count 551 H, MPV 10.2, Immature Gran % (Auto) 1.100 H, Neut % (Auto) 76.9 H, Lymph % (Auto) 6.8 L, [place] % (Auto) 12.7 H, Eos % (Auto) 2.0, Baso % (Auto) 0.5, Absolute Neuts (auto) 10.9 H, Absolute Lymphs (auto) 0.96, Nucleated RBC % 0, Differential Comment SCANNED, Diff Path Review May , Hypochromasia 1+, Anisocytosis 1+, Target Cells RARE 12/09/20 20:03: Sodium 134 L, Potassium 4.6, Chloride 95 L, Carbon Dioxide 33.0 H, Anion Gap 6, BUN 26 H, Creatinine 3.87 H, Estim Creat Clear Calc 15.75, Est GFR (MDRD) Af Amer 15 L, Est GFR (MDRD) Non-Af 13 L, BUN/Creatinine Ratio 6.7 L, Glucose 194 H, Calcium 8.9, Total Bilirubin 1.00, AST 22, ALT 18, Alkaline Phosphatase 409 H, Troponin I High Sens 22, Total Protein 8.4 H, Albumin 2.3 L, Globulin 6.1 H, Albumin/Globulin Ratio 0.4 L Micro: Microbiology 12/09/20 20:28 Nasal Secretion SARS-CoV-2 Antigen (Rapid) - Final Radiology Impression Brain CT 12/09/20 20:11 IMPRESSION: 1. Age-indeterminate infarcts in the right parietal lobe and bilaterally in the cerebelli. In the presence of acute neurologic deficit consider acute infarct and/or MR confirmation. Electronically Signed: Angeline Veliz MD at 20:47 EDT Tel , Service support , ADDENDUM: 12/09/202103 IMPRESSION: 1. Age-indeterminate infarcts in the right parietal lobe and bilaterally in the cerebelli. In the presence of acute neurologic deficit consider acute infarct and/or MR confirmation. N.B. : Dr Elpidio DO, confirmed on 12/09/2020 20:57:37 (ET) that the healthcare facility has received the radiology report. Electronically Signed: Angeline Veliz MD at 20:47 EDT Tel , Service support , Assessment & Plan Assessment/Plan (1) TIA (transient ischemic attack): PLAN: The patient is a 60 y/o F w/ PMHx: PAF, CAD s/p CABG and PCI, PAD, AOCD/Chronic anemia, ESRD on HD, Valvular Heart Disease s/p MVR, Chronic Diastolic CHF, HTN, HLD, GERD, recent admission 11/25/20-12/06/20 for treatment of acute CHF exacerbation, acutely elevated LFTs who now represents to the [facility] ED on 12/09/20 with history of on paresthesias initially to the right side of the face while she was at dialysis which quickly resolved within minutes but then she started to have following completion onset of numbness and sensation of weakness to the left side of her face, left upper extremity and distal leg eventually resolving. 1. Paresthesias concerning for Acute CVA with CT evidence of prior CVA: Will admit to PCU, will obtain CT head and neck with consultation with nephrology for dialysis given underlying end-stage renal disease, unable to obtain MRI brain as unclear if patient pacemaker compatible with MRI, may need to consider potential repeat CT head in 24 hours, patient with recent echocardiogram during prior admission however unclear if with contrast, will need to contact echo department in a.m. but from current read suspect not therefore if high suspicion for stroke may need to consider repeating with contrast, PT/OT/Speech/Nutrition evaluation per protocol. Given resolution we will continue patient hypertensive regimen, maintain on aspirin, statin, fall precautions. FLP in AM. Magnesium, TSH, hemoglobin A1c pending. 2. Chronic diastolic CHF with recent right-sided pleural effusion status post thoracentesis, paracentesis: Recent presentation with mild overload, currently appears compensated, 11/25/2020 echocardiogram with normal LV systolic function, EF 55%, mildly dilated RV, mild global RV systolic dysfunction, moderately enlarged RA, stable appearing bioprosthetic MV apparatus, trivial transvalvular insufficiency of the mitral valve, moderate TVI, mild TVI, RVSP 45 mmHg. Patient status post recent thoracentesis during prior admission with transudate status. Patient also underwent paracentesis with significant 20-80 mill removal of keanu-colored fluid with no malignant cells. 3. Recent elevated bilirubin, LFTs with concern for initially Acute Cholecystitis, unfortunately ongoing right upper quadrant discomfort: Patient with gallbladder ultrasound with only noted mild hepatomegaly and diffuse fatty infiltration with gallbladder sludge, HIDA scan 11/29/2020 with nonvisualization of the gallbladder, CT with oral contrast additionally obtained with questionable findings consistent with colitis. Patient LFTs and alk phos slowly trended down. General surgery consulted and deferred any surgical intervention at that time. Patient recently discharged on low-dose Levaquin for possible colitis. Patient still with right upper quadrant discomfort however alk phos and LFTs have significantly improved. May need to consider reinvolvement of surgeon. 4. Chronic normocytic anemia: Admission hemoglobin 9.9, baseline prior 9-10, stable, trend. 5. ESRD: Patient on hemodialysis, aVF in place, following with Dr. Mohan, dialysis Saturday and received on day of ED presentation. Ne phrology consulted for ongoing dialysis needs especially given CTA head and neck. 6. CAD, PAD: Patient per her report status post bypass surgery unclear specific vessels or number as well as PCI x1 and also reports stenting to something in her abdomen but unclear vessel, will maintain on aspirin, statin, metoprolol, not on JUSTIN inhibitor or ARB with underlying renal disease as noted. 7. Valvular heart disease: Patient status post MVR, echo as noted above. 8. Hypertension: Continue home regimen including metoprolol, hydralazine, Lasix, not on JUSTIN inhibitor/ARB, PRN hydralazine. 9. Hyperlipidemia: Continue home statin regimen. AM FLP. 10. PAF: We will continue patient home metoprolol, sinus rhythm upon presentation, recent Eliquis hold secondary to severe nosebleeds. Maintained on asa 81 mg. 11. GERD: We will continue patient home PPI. 12. DVT prophylaxis: SCDs, heparin. 13. CODE status: Discussed CODE status at length including difference between FULL code, DNR-CCA and DNR-CC status. Following discussions about the differences in these status, requested Full Code status. Daughters present for conversation. Advanced Care Planning Face to Face Time: 16 minutes. Charges/Coding Visit Charges OBSV E&M: 19324 Initial observation care L3 Procedures Hospitalists Procedures: 34473 Advncd Care Plan 30 Min
[2020-12-09 23:43] VITALS: BMI 26.5
[2020-12-09 23:46] VITALS: BP 154/64; PULSE 90; RESP 16; TEMP 36.3; O2SAT 97
--- NOTE | 2020-12-09 23:55 | EKG12_ITS ---
Test Reason : CP ADMISSION Blood Pressure : / mmHG Vent. Rate : 087 BPM Atrial Rate : 087 BPM P-R Int : 248 ms QRS Dur : 096 ms QT Int : 402 ms P-R-T Axes : 067 -04 069 degrees QTc Int : 483 ms Sinus rhythm with 1st degree A-V block Low voltage QRS Borderline ECG When compared with ECG of 09-DEC-2020 22:53, MANUAL COMPARISON REQUIRED, DATA IS UNCONFIRMED Confirmed by MAHESH RUSSO, JAYY ([id number]), assistant editor SHELDON MERAZ ([id number]) on 12/13/2020 9:44:54 AM Referred By: RADHA Confirmed By:JAYY ARAGON MD
[2020-12-10] VITALS (20 sets, daily range): BP systolic 126–147; BP diastolic 49–70; PULSE 77–93; RESP 16–20; TEMP 36.4–36.7; O2SAT 92–96; BMI 26.5
--- NOTE | 2020-12-10 00:02 | PCS.PANDOC ---
PANDEMIC DOCUMENTATION INITIATED: Date: 11/28/2020 Time:0001
[2020-12-10 01:39] LABS: Magnesium 2.1 mg/dL (1.6-2.6); Phosphorus 3.7 mg/dL (2.5-4.9)
[2020-12-10] MEDS: hydrALAZINE 50 MG Tablet PO ×3 (05:02→20:51)
[2020-12-10] MEDS: hydrOXYzine PAM 25 MG Capsule PO ×3 (05:03→20:52)
[2020-12-10] MEDS: Albuterol 2.5 MG/3 ML VIAL.NEB. INHALATION ×2 (05:28→22:36)
--- NOTE | 2020-12-10 05:28 | CPS ---
PATIENT REQUESTED PRN TREATMENT DUE TO SOB.
[2020-12-10 06:50] LABS: Bedside Glucose 215 mg/dL (70-110)
[2020-12-10 06:55] LABS: Absolute Lymphocyte Count 1.21 X10^3/uL (0.83-4.51); Absolute Neutrophil Count 10.4 X10^3/uL (2.0-7.7); Basophil# 0.09 X10^3/uL; Basophil% 0.6 % (0-1); Eosinophil# 0.31 X10^3/uL; Eosinophils% 2.2 % (0-5); Hematocrit 32.8 % (37-47); Hemoglobin 9.8 g/dL (12.0-15.0); Lymphocyte # 1.21 X10^3/ul (0.83-4.51); Lymphocyte % 8.6 % (19-41); Mean Corp Hgb Conc 29.9 g/dL (32-36); Mean Corpuscular Hgb 28.6 pg (27.0-32.0); Mean Corpuscular Volume 95.6 fL (81-99); Mean Platelet Vol. 9.9 fl (6.2-12.0); Monocyte# 1.82 X10^3/uL; NRBC Flagged by Analyzer 0 % (0-5); Neutrophil # 10.41 X10^3/uL (2.7-7.7); Neutrophil % 74.4 % (47-70); POSITIVE DIFFERENTIAL YES; POSITIVE MORPHOLOGY YES; Platelet Count 546 K/mm3 (150-450); RBC Distribution Width CV 23.1 % (11.6-14.6); Red Blood Count 3.43 M/mm3 (4.2-5.4)
[2020-12-10 06:59] LABS: Differential Indicated SCAN CRITERIA MET
[2020-12-10 07:17] LABS: Differential Comment SCANNED
[2020-12-10 07:18] LABS: Anisocytosis 2+
[2020-12-10 07:19] LABS: Microcytosis 1+
[2020-12-10 07:20] LABS: Polychromasia 1+
[2020-12-10 07:21] LABS: Macrocytosis 1+
[2020-12-10 07:23] LABS: Target Cells RARE
[2020-12-10 07:40] LABS: ALB/GLOB Ratio 0.4 RATIO (0.9-2.4); AST(SGOT) 27 U/L (15-37); Alanine Aminotransfer ALT/SGPT 16 U/L (13-56); Albumin, Serum 2.3 g/dL (3.2-5.0); Alkaline Phosphatase 422 U/L (45-117); Anion Gap 4 (5-15); BUN 31 mg/dL (7-18); BUN/Creat Ratio 6.9 RATIO (10-20); Chloride 95 mmol/L (98-107); Cholesterol 79 mg/dL (200); Creatinine, Serum 4.47 mg/dL (0.55-1.02); EST Glomerular Filtration Rate 11 mL/min (>60); Est Glom Filt Rate - Afr Amer 13 mL/min (>60); Estimated Creatinine Clearance 13.64 ml/min; Globulin 6.2 g/dL (2.2-4.2); Glucose 223 mg/dL (74-106); High Density Lipoprotein 38 mg/dL; Potassium 4.8 mmol/L (3.5-5.1); Protein, Total 8.5 g/dL (6.4-8.2); Sodium Level 130 mmol/L (136-145); Thyroid Stim Hormone (TSH) 3.58 uIU/mL (0.358-3.74); Triglycerides 74 mg/dL; Very Low Density Lipoprotein 15 mg/dL (5-40)
[2020-12-10 08:14] LABS: Hemoglobin A1c 5.9 % (3.8-5.6)
[2020-12-10] MEDS: Aspirin 81 MG TAB.CHEW PO (11:11)
[2020-12-10] MEDS: Ascorbic Acid 500 MG Tablet PO (11:11)
[2020-12-10] MEDS: Pantoprazole Sodium 40 MG Tablet PO (11:11)
[2020-12-10] MEDS: levoFLOXacin 250 MG Tablet PO (11:11)
[2020-12-10] MEDS: Metoprolol(XL)Succ 50 MG Tablet PO ×2 (11:11→20:52)
[2020-12-10] MEDS: Cholecalciferol (VIT D3) 25 MCG TABLET (1,000 UNITS) 125 MCG PO (12:28)
[2020-12-10] MEDS: Furosemide 20 MG Tablet PO (12:41)
[2020-12-10] MEDS: Furosemide 40 MG Tablet PO ×2 (12:41→20:52)
--- NOTE | 2020-12-10 15:32 | CASEMGMT ---
This RN CM to room with LINDER form, explanation done-pt voices understanding, and signs LINDER form at this time. Original to chart and pt declines copy. Pt is A/Ox4 and son is at bedside. SStemi PRAKASH CM
[2020-12-10] MEDS: Senna/Docusate Sodium 1 Tablet 2 TABLET PO ×2 (16:07→20:51)
[2020-12-10] MEDS: HYDROcodone Bitartrate/Apap 5/325 Tablet PO ×2 (16:07→20:52)
--- NOTE | 2020-12-10 17:13 | CON.PCM.RE_ITS ---
Assessment & Plan Assessment/Plan (1) ESRD (end stage renal disease) on dialysis: PLAN: he patient usually dialyzes on a Saturday, Saturday and Saturday schedule at [facility]. She is followed there by Dr. Glynn. Although the patient did received full treatment of her usual dialysis yesterday, there is no need for diffusive clearance. There is no need for dialysis today. We will arrange for dialysis for 12/12/2020 if she is not yet discharged. (2) Anemia: PLAN: Hemoglobin is 9.8 which is slightly low for dialysis patient. We will find out what her usual BARBRA dose is with dialysis on 12/12/2020. (3) HTN (hypertension): PLAN: BP is acceptable. No need for ultrafiltration today. Continue her home antihypertensives. (4) TIA (transient ischemic attack): PLAN: Work-up and treatment plan as per hospital medicine service. HPI Consult Data Date of Consult: 12/10/20 HPI Narrative Reason for Consultation: ESRD HPI Narrative: KENYATTA BARROW, is a 60-year-old woman who is known to our service with ESRD. The patient usually dialyzes on Saturday, Saturday and Saturday schedule at [facility]. She is followed there by Dr. Glynn. The patient was just discharged from the hospital on 12/06/2020 after a hospital stay for CHF exacerbation. The patient denies current chest pain, shortness of breath, nausea, vomiting or edema. The patient presented to the hospital last night because of numbness and weakness of the face and left arm and leg. She also had numbness of the right leg while she was being dialyzed yesterday. Numbness has resolved. [facility]LY [facility] Medical History (Updated 12/10/20 @ 04:[address] Daiana Guajardo MD) CAD (coronary artery disease) CHF (congestive heart failure) CKD (chronic kidney disease) CKD (chronic kidney disease) stage V requiring chronic dialysis Diabetes Dialysis patient Former tobacco use HTN (hypertension) Hyperlipidemia ICD (implantable cardioverter-defibrillator) in place On home oxygen therapy PAF (paroxysmal atrial fibrillation) Pancreatitis Home Medications ascorbic acid (vitamin C) 500 mg PO DAILY 11/25/20 [History Last Taken 11/24/20] atorvastatin 40 mg PO DAILY 11/25/20 [History Last Taken 11/24/20] cholecalciferol (vitamin D3) 125 mcg PO DAILY 11/25/20 [History Last Taken 11/24/20] furosemide 20 mg PO DAILY 11/25/20 [History Last Taken 11/24/20] furosemide 40 mg PO BID 11/25/20 [History Last Taken 11/24/20] hydralazine 50 mg PO TID 11/25/20 [History Last Taken 11/25/20] hydroxyzine HCl 25 mg PO TID 11/25/20 [History Last Taken 11/25/20] insulin lispro [Humalog U-100 Insulin] 11/25/20 [History Last Taken Unknown] metoprolol succinate 50 mg PO BID 11/25/20 [History Last Taken 11/25/20] omeprazole 40 mg PO DAILY 11/25/20 [History Last Taken 11/24/20] ondansetron HCl 4 mg PO PRN PRN 11/25/20 [History Last Taken 11/25/20] Insulin Basal Pump (Pt's Own) [Pump, Basal] 1 unit SUBCUT Q24 #0 12/06/20 [Rx Last Taken Unknown] insulin lispro [Humalog KwikPen Insulin] See Protocol SUBCUT ACHS #0 ml 12/06/20 [Rx Last Taken Unknown] levofloxacin 250 mg PO Q48H #8 tab 12/06/20 [Rx Last Taken Unknown] Allergy/AdvReac Type Severity Reaction Status Date / Time amoxicillin Allergy Hives Verified 11/25/20 11:39 benzonatate Allergy Hives Verified 11/25/20 11:39 [From Tessalon Perles] lansoprazole [From Prevacid] Allergy Other Verified 11/25/20 11:39 latex Allergy Hives Verified 11/25/20 11:39 Penicillins Allergy Hives Verified 11/25/20 11:39 silicone AdvReac Hives Verified 12/09/20 23:46 Family History Mother Hypertension Diabetes Heart disease Father Heart disease Hypertension Diabetes Kidney disease Surgical History History of appendectomy History of arteriovenous graft History of heart artery stent History of mitral valve replacement Hx of CABG Social History (Updated 12/10/20 @ 04:[address] Daiana Guajardo MD) housing: retirement Smoking Status: Former smoker how long ago did patient quit smoking: Quit 4 years prior, smoked 1 ppd cig tob since teenager. alcohol intake: never substance use type: does not use ROS ROS Narrative Review of systems as per HPI. 10 out of 10 review of system was completed and are otherwise noncontributory. Physical Exam Narrative General: Alert and oriented x3 in no apparent distress. HEENT: Normocephalic, atraumatic. Mucous membrane moist without erythema. Neck: Supple. Positive JVD. Heart: Normal S1, S2. No rubs or murmurs. Lungs: Clear to auscultation bilaterally. Abdomen: Normal bowel sounds, soft, nontender, no guarding or rebound. Extremity: No edema in the lower extremities. No clubbing or cyanosis. Full passive range of motion. Skin: No rash. Skin is warm and dry. Psychiatric: Normal mood and affect. Lab / Micro Data Result Diagrams: 12/10/20 06:18 12/10/20 06:18 Labs: Laboratory Results - last 24 hr 12/09/20 20:03: WBC 14.1 H, RBC 3.45 L, Hgb 9.9 L, Hct 32.5 L, MCV 94.2, MCH 28.7, MCHC 30.5 L, RDW Std Deviation 77.0 H, RDW Coeff of Grazyna 23.2 H, Plt Count 551 H, MPV 10.2, Immature Gran % (Auto) 1.100 H, Neut % (Auto) 76.9 H, Lymph % (Auto) 6.8 L, [place] % (Auto) 12.7 H, Eos % (Auto) 2.0, Baso % (Auto) 0.5, Absolute Neuts (auto) 10.9 H, Absolute Lymphs (auto) 0.96, Nucleated RBC % 0, Differential Comment SCANNED, Diff Path Review May foll, Hypochromasia 1+, Anisocytosis 1+, Target Cells RARE 12/09/20 20:03: Sodium 134 L, Potassium 4.6, Chloride 95 L, Carbon Dioxide 33.0 H, Anion Gap 6, BUN 26 H, Creatinine 3.87 H, Estim Creat Clear Calc 15.75, Est GFR (MDRD) Af Amer 15 L, Est GFR (MDRD) Non-Af 13 L, BUN/Creatinine Ratio 6.7 L, Glucose 194 H, Calcium 8.9, Total Bilirubin 1.00, AST 22, ALT 18, Alkaline Phosphatase 409 H, Troponin I High Sens 22, Total Protein 8.4 H, Albumin 2.3 L, Globulin 6.1 H, Albumin/Globulin Ratio 0.4 L 12/09/20 20:03: Phosphorus 3.7, Magnesium 2.1 12/10/20 06:18: WBC 14.0 H, RBC 3.43 L, Hgb 9.8 L, Hct 32.8 L, MCV 95.6, MCH 28.6, MCHC 29.9 L, RDW Std Deviation 78.0 H, RDW Coeff of [place] 23.1 H, Plt Count 546 H, MPV 9.9, Immature Gran % (Auto) 1.200 H, Neut % (Auto) 74.4 H, Lymph % (Auto) 8.6 L, [place] % (Auto) 13.0 H, Eos % (Auto) 2.2, Baso % (Auto) 0.6, Absolute Neuts (auto) 10.4 H, Absolute Lymphs (auto) 1.21, Nucleated RBC % 0, Differential Comment SCANNED, Polychromasia 1+, Anisocytosis 2+, Microcytosis 1+, Macrocytosis 1+, Target Cells RARE 12/10/20 06:18: Sodium 130 L, Potassium 4.8, Chloride 95 L, Carbon Dioxide 31.0, Anion Gap 4 L, BUN 31 H, Creatinine 4.47 H, Estim Creat Clear Calc 13.64, Est GFR (MDRD) Af Amer 13 L, Est GFR (MDRD) Non-Af 11 L, BUN/Creatinine Ratio 6.9 L, Glucose 223 H, Calcium 9.0, Total Bilirubin 1.00, AST 27, ALT 16, Alkaline Phosphatase 422 H, Total Protein 8.5 H, Albumin 2.3 L, Globulin 6.2 H, Albumin/Globulin Ratio 0.4 L, Triglycerides 74, Cholesterol 79, LDL Cholesterol 26, VLDL Cholesterol 15, HDL Cholesterol 38 L, TSH 3.58 12/10/20 06:18: Hemoglobin A1c 5.9 H 12/10/20 06:23: POC Glucose 215 H Micro: Microbiology 12/09/20 20:28 Nasal Secretion SARS-CoV-2 Antigen (Rapid) - Final Radiology Impression Brain CT 12/09/20 20:11 IMPRESSION: 1. Age-indeterminate infarcts in the right parietal lobe and bilaterally in the cerebelli. In the presence of acute neurologic deficit consider acute infarct and/or MR confirmation. Electronically Signed: Angeline Veliz MD at 20:47 EDT Tel , Service support , ADDENDUM: 12/09/20 2104 IMPRESSION: 1. Age-indeterminate infarcts in the right parietal lobe and bilaterally in the cerebelli. In the presence of acute neurologic deficit consider acute infarct and/or MR confirmation. N.B. : Dr Elpidio DO, confirmed on 12/09/2020 20:57:37 (ET) that the healthcare facility has received the radiology report. Electronically Signed: Angeline Veliz MD at 20:47 EDT Tel , Service support , Head/Neck CTA 12/10/20 23:32 IMPRESSION: CT angiogram brain: Mild atherosclerotic disease involving the cavernous portion of the bilateral internal carotid arteries otherwise normal CT angiogram of the brain with no significant stenosis, occlusion or aneurysm. CT angiogram neck: Mild to moderate calcified plaque in the bulb region and proximal internal carotid arteries with no evidence of significant stenosis, occlusion or dissection at the level of the neck. Electronically Signed: Abimbola Petty MD at 2:07 EDT , Service support , ADDENDUM: 12/10/20 0233 IMPRESSION: CT angiogram brain: Mild atherosclerotic disease involving the cavernous portion of the bilateral internal carotid arteries otherwise normal CT angiogram of the brain with no significant stenosis, occlusion or aneurysm. CT angiogram neck: Mild to moderate calcified plaque in the bulb region and proximal internal carotid arteries with no evidence of significant stenosis, occlusion or dissection at the level of the neck. N.B. : The above Results were Read Back by Abimbola Petty MD to Daiana Jackson DO, and understanding confirmed on 12/10/2020 02:26:13 (ET). Electronically Signed: Abimbola Petty MD at 2:07 EDT , Service support ,
--- NOTE | 2020-12-10 17:30 | PCM.PN.HOSP ---
Subjective Subjective Patient states that her symptoms started on one side of her body while she was at dialysis and then transition to the other side of her body. She also had an episode of the same here today but NIH remains 0 as the symptoms are subjective and she has no objective findings on exam when these episodes occur. Patient was taken off Eliquis by her ENT secondary to severe nosebleed. She does have a follow-up pending with him to consider reinitiation of her anticoagulation. Objective Data Objective Data Vital Signs: Vital Signs Temp Pulse Resp BP Pulse Ox 97.5 F L 85 16 147/58 H 96 12/10/20 14:20 12/10/20 16:07 12/10/20 14:20 12/10/20 14:20 12/10/20 14:20 Oxygen Flow Rate (L/min) 4 Oxygen Delivery Method Nasal Cannula Weight: 81.6 kg Body Mass Index (BMI) 26.5 Lab / Micro Data Result Diagrams: 12/10/20 06:18 12/10/20 06:18 Labs: Laboratory Results - last 24 hr 12/09/20 20:03: WBC 14.1 H, RBC 3.45 L, Hgb 9.9 L, Hct 32.5 L, MCV 94.2, MCH 28.7, MCHC 30.5 L, RDW Std Deviation 77.0 H, RDW Coeff of Grazyna 23.2 H, Plt Count 551 H, MPV 10.2, Immature Gran % (Auto) 1.100 H, Neut % (Auto) 76.9 H, Lymph % (Auto) 6.8 L, [place] % (Auto) 12.7 H, Eos % (Auto) 2.0, Baso % (Auto) 0.5, Absolute Neuts (auto) 10.9 H, Absolute Lymphs (auto) 0.96, Nucleated RBC % 0, Differential Comment SCANNED, Diff Path Review May foll, Hypochromasia 1+, Anisocytosis 1+, Target Cells RARE 12/09/20 20:03: Sodium 134 L, Potassium 4.6, Chloride 95 L, Carbon Dioxide 33.0 H, Anion Gap 6, BUN 26 H, Creatinine 3.87 H, Estim Creat Clear Calc 15.75, Est GFR (MDRD) Af Amer 15 L, Est GFR (MDRD) Non-Af 13 L, BUN/Creatinine Ratio 6.7 L, Glucose 194 H, Calcium 8.9, Total Bilirubin 1.00, AST 22, ALT 18, Alkaline Phosphatase 409 H, Troponin I High Sens 22, Total Protein 8.4 H, Albumin 2.3 L, Globulin 6.1 H, Albumin/Globulin Ratio 0.4 L 12/09/20 20:03: Phosphorus 3.7, Magnesium 2.1 12/10/20 06:18: WBC 14.0 H, RBC 3.43 L, Hgb 9.8 L, Hct 32.8 L, MCV 95.6, MCH 28.6, MCHC 29.9 L, RDW Std Deviation 78.0 H, RDW Coeff of Grazyna 23.1 H, Plt Count 546 H, MPV 9.9, Immature Gran % (Auto) 1.200 H, Neut % (Auto) 74.4 H, Lymph % (Auto) 8.6 L, [place] % (Auto) 13.0 H, Eos % (Auto) 2.2, Baso % (Auto) 0.6, Absolute Neuts (auto) 10.4 H, Absolute Lymphs (auto) 1.21, Nucleated RBC % 0, Differential Comment SCANNED, Polychromasia 1+, Anisocytosis 2+, Microcytosis 1+, Macrocytosis 1+, Target Cells RARE 12/10/20 06:18: Sodium 130 L, Potassium 4.8, Chloride 95 L, Carbon Dioxide 31.0, Anion Gap 4 L, BUN 31 H, Creatinine 4.47 H, Estim Creat Clear Calc 13.64, Est GFR (MDRD) Af Amer 13 L, Est GFR (MDRD) Non-Af 11 L, BUN/Creatinine Ratio 6.9 L, Glucose 223 H, Calcium 9.0, Total Bilirubin 1.00, AST 27, ALT 16, Alkaline Phosphatase 422 H, Total Protein 8.5 H, Albumin 2.3 L, Globulin 6.2 H, Albumin/Globulin Ratio 0.4 L, Triglycerides 74, Cholesterol 79, LDL Cholesterol 26, VLDL Cholesterol 15, HDL Cholesterol 38 L, TSH 3.58 12/10/20 06:18: Hemoglobin A1c 5.9 H 12/10/20 06:23: POC Glucose 215 H Micro: Microbiology 12/09/20 20:28 Nasal Secretion SARS-CoV-2 Antigen (Rapid) - Final Radiography Diagnostic Testing: Radiology Impression Brain CT 12/09/20 20:11 IMPRESSION: 1. Age-indeterminate infarcts in the right parietal lobe and bilaterally in the cerebelli. In the presence of acute neurologic deficit consider acute infarct and/or MR confirmation. Electronically Signed: Angeline Veliz MD at 20:47 EDT Tel , Service support , ADDENDUM: 12/09/20 2104 IMPRESSION: 1. Age-indeterminate infarcts in the right parietal lobe and bilaterally in the cerebelli. In the presence of acute neurologic deficit consider acute infarct and/or MR confirmation. N.B. : Dr Elpidio DO, confirmed on 12/09/2020 20:57:37 (ET) that the healthcare facility has received the radiology report. Electronically Signed: Angeline Veliz MD at 20:47 EDT Tel , Service support , Head/Neck CTA 12/10/20 23:32 IMPRESSION: CT angiogram brain: Mild atherosclerotic disease involving the cavernous portion of the bilateral internal carotid arteries otherwise normal CT angiogram of the brain with no significant stenosis, occlusion or aneurysm. CT angiogram neck: Mild to moderate calcified plaque in the bulb region and proximal internal carotid arteries with no evidence of significant stenosis, occlusion or dissection at the level of the neck. Electronically Signed: Abimbola Petty MD at 2:07 EDT , Service support , ADDENDUM: 12/10/20 0233 IMPRESSION: CT angiogram brain: Mild atherosclerotic disease involving the cavernous portion of the bilateral internal carotid arteries otherwise normal CT angiogram of the brain with no significant stenosis, occlusion or aneurysm. CT angiogram neck: Mild to moderate calcified plaque in the bulb region and proximal internal carotid arteries with no evidence of significant stenosis, occlusion or dissection at the level of the neck. N.B. : The above Results were Read Back by Abimbola Petty MD to Daiana Jackson DO, and understanding confirmed on 12/10/2020 02:26:13 (ET). Electronically Signed: Abimbola Petty MD at 2:07 EDT , Service support , Physical Exam Narrative Physical Examination: General: Awake, alert, oriented x 3 and cooperative, seated upright in the chair next to the bed, very perky Skin: Normal color, normal turgor, no icterus, no cyanosis. HEENT: AT/NC, EOMI, PERRLA, MMM, no carotid bruits, no marked JVD noted. Lungs: Diminished slightly at bilateral bases, appropriate effort, no rhonchi or wheezing. Heart: Regular rate and rhythm; no gallop Abdomen: Soft, overweight, no tenderness, ND, normal BS, no obvious HSM. Extremities: No cyanosis, no clubbing, mild bilateral ankle edema, not markedly pitting. Neurological: Patient awake, alert, oriented as noted, cognitive function intact; pupils equally reactive to light and accommodation, cranial nerves II-XII grossly normal, moving all 4 extremities, generalized weakness but no focal deficits Psychiatric: Very pleasant and excited to see me today. Assessment & Plan Assessment/Plan (1) Paresthesias: (2) TIA (transient ischemic attack): PLAN: Paresthesias -Symptoms were diffuse and progressive on bilateral sides of her body -They occurred while she was on dialysis -She had one episode here today and had no numbness on exam but it was more of a subjective sensation -NIH was 1 at that time -Patient with recent echocardiogram--> no need to repeat at this time unless there are changes on her CT consistent with stroke -Repeat CT at 24 hours from admission for reassessment as patient is not a candidate for MRI with her pacer -If remains stable likely discharge back to her skilled facility tomorrow Chronic hypoxic respiratory insufficiency secondary to acute on chronic HFpEF -Baseline O2 requirement is 3-4 L -Continue home Lasix -Continue dialysis per nephrology -Status post thoracentesis for pleural effusion at previous admission -Respiratory status is stable at that point time -Continue to monitor clinically Elevated liver enzymes -These have dramatically improved since her last hospitalization -Both bilirubin and alk phos continue to trend down since her last discharge -Ultrasound of the gallbladder showed mild hepatomegaly with diffuse fatty infiltration and sludge in the gallbladder -General surgery had followed at that time -Had HIDA scan was done but showed nonvisualization of the gallbladder -MRCP unable to be performed Leukocytosis -White count is stable from previous admission -Continue Levaquin to complete her antibiotics for her potential colitis -Patient with penicillin allergy in the form of hives therefore Zosyn avoided -Repeat CBC in a.m. End-stage renal disease on HD -Continue Saturday dialysis -Nephrology following Chronic anemia secondary to renal disease -Hemoglobin stable CAD/mitral valve regurgitation/hypertension/hyperlipidemia -History of stents -Continue aspirin, statin, beta-radhika, hydralazine -Continue Lasix PAF -Continue metoprolol -Patient currently in sinus rhythm -Had been on Eliquis previously but this is on hold secondary to epistaxis DM-2 -Continue to monitor closely -Insulin pump in place -SSI -Accu-Cheks GERD -Continue PPI DVT prophylaxis -Continue heparin CODE STATUS -Full code Charges/Coding Visit Charges Inpatient E&M: 24951 Subs Hosp L2
[2020-12-10] MEDS: Ondansetron 4 MG/2 ML Vial IV (19:25)
[2020-12-10] MEDS: 0.9% Saline Lock 10 ML Syringe IV ×2 (19:25→20:53)
[2020-12-10] MEDS: Atorvastatin Calcium 40 MG Tablet PO (20:52)
--- NOTE | 2020-12-10 23:32 | CT_ITS ---
We are attempting to reach an attending provider to discuss findings. An addendum with communication details will be sent when the communication is complete. STUDY: CTA HEAD AND NECK WITH CONTRAST REASON FOR EXAM: Female, 60 years old. Neuro deficit, acute, stroke suspected RADIATION DOSAGE (If Supplied By Facility): CTDIvol = ( 21.88 ) mGy, DLP = ( 693.60 ) mGycm TECHNIQUE: CT angiography was performed with a multi-detector CT scanner. Data acquisition was obtained from the skull base through the vertex following intravenous administration of IV 100mL [id number]-370. MIP images were reconstructed from the axial data set. Post-processing of the angiographic images was performed, with multiplanar reformation and 3D reconstruction. Individualized dose optimization techniques were used for this CT. COMPARISON: No relevant priors. FINDINGS: Normal bilateral petrous carotid arteries. There is calcified plaque formation of the right cavernous carotid artery, with a mild stenosis (less than 50%). There is calcified plaque formation of the left cavernous carotid artery, with a mild stenosis (less than 50%). Normal right A1 segments of the anterior cerebral artery. Normal left A1 segments of the anterior cerebral artery. Normal intact anterior communicating artery (ACOM). Normal bilateral A2 segments of the anterior cerebral arteries. Normal right M1 and M2 segments of the middle cerebral arteries, with a normal M1 bifurcation. Normal left M1 and M2 segments of the middle cerebral arteries, with a normal M1 bifurcation. There is non-visualization of the right posterior communicating artery (PCOM). There is non-visualization of the left posterior communicating artery (PCOM). Normal bilateral vertebral arteries. Normal basilar artery with a normal basilar bifurcation. The visualized bilateral superior cerebellar (SCA) arteries are normal. Normal bilateral P1, P2 and visualized P3 segments of the posterior cerebral arteries. There is no demonstrated aneurysm of the [place] of [place]. There is no demonstrated abnormality of the visualized brain. AORTIC ARCH: There is atherosclerotic calcific plaque formation of the aortic arch and great vessels arising from the aortic arch, without a hemodynamically significant stenosis. There is a normal origin of the brachiocephalic, left common carotid, and left subclavian arteries. RIGHT CAROTID ARTERIES: Normal right common carotid artery (CCA). There is mild to moderate atherosclerotic plaque formation with minimal narrowing of the right carotid bulb. There is mild atherosclerotic plaque formation of the origin of the right internal carotid artery with less than 50% cross sectional diameter stenosis. Normal visualized cervical portion of the right internal carotid artery. Normal origin of the right external carotid artery (ECA). LEFT CAROTID ARTERIES: Normal left common carotid artery (CCA). There is mild to moderate atherosclerotic plaque formation with minimal narrowing of the left carotid bulb. There is mild atherosclerotic plaque formation of the origin of the left internal carotid artery with less than 50% cross sectional diameter stenosis. Normal visualized cervical portion of the left internal carotid artery. Normal origin of the left external carotid artery (ECA). VERTEBRAL ARTERIES: Normal bilateral vertebral arteries. CT/STROKE CTA Head AND Neck W/Con IMPRESSION: CT angiogram brain: Mild atherosclerotic disease involving the cavernous portion of the bilateral internal carotid arteries otherwise normal CT angiogram of the brain with no significant stenosis, occlusion or aneurysm. CT angiogram neck: Mild to moderate calcified plaque in the bulb region and proximal internal carotid arteries with no evidence of significant stenosis, occlusion or dissection at the level of the neck. Electronically Signed: Abmibola Petty MD at 2:07 EDT , Service support ,
[2020-12-11] VITALS (10 sets, daily range): BP systolic 128–148; BP diastolic 50–56; PULSE 72–87; RESP 16–20; TEMP 36.4–36.8; O2SAT 93–96
--- NOTE | 2020-12-11 03:33 | NURSING ---
pt insulin pump alert 69 glucose 8oz orange juice given.
--- NOTE | 2020-12-11 03:37 | NURSING ---
glucose 80
--- NOTE | 2020-12-11 05:00 | CT_ITS ---
We are attempting to reach an attending provider to discuss findings. An addendum with communication details will be sent when the communication is complete. HISTORY: stroke EXAMINATION: CT Head Stroke Protocol W/O Contrast Injection TECHNIQUE: Multiple axial images were obtained of the brain without intravenous contrast. A radiation dose optimization technique was used for this scan. IV Contrast dosage and agent: None. COMPARISON: Unenhanced CT brain from 2 days prior and CTA head and neck from one day prior. FINDINGS: BRAIN PARENCHYMA: There is some residual intracranial contrast enhancement. No intra-axial or extra-axial hemorrhage demonstrated. No evidence of acute major territorial infarct. Stable small infarct at right occipital parietal junction, likely chronic. Small chronic-appearing bilateral cerebellar infarcts also noted. No intracranial mass effect or midline shift. There is chronic hypoattenuation of the deep cerebral white matter. Chronic involutional changes are noted. CSF SPACES: Prominent cerebral sulci secondary to involutional changes. No hydrocephalus. Basal cisterns are patent. Intracranial vascular calcifications and contrast opacification. CALVARIUM, SKULL BASE, PARANASAL SINUSES AND MASTOID AIR CELLS: Intact calvarium. No acute findings with paranasal sinuses. Mastoid air cells are well pneumatized. ORBITS: No acute findings. ASPECTS Score for Acute Strokes: NA CT/STROKE Brain/Head without Cont IMPRESSION: Chronic ischemic changes with no definitive evidence of acute major territorial infarct or other acute intracranial abnormality. Individualized dose optimization techniques were used for this CT. at 0621 Reported and signed by: Vineet Ferraro MD Electronically Signed: Vineet Ferraro MD at 6:20 EDT Tel , Service support ,
[2020-12-11] MEDS: hydrALAZINE 50 MG Tablet PO ×2 (05:43→13:14)
[2020-12-11] MEDS: HYDROcodone Bitartrate/Apap 5/325 Tablet PO ×2 (05:43→13:14)
[2020-12-11] MEDS: hydrOXYzine PAM 25 MG Capsule PO ×2 (05:44→13:14)
--- NOTE | 2020-12-11 06:25 | ED.RN ---
Radiology support called to speak with Dr. Phillips, Dr. Phillips not on staff at this time. verbal read taken. no new neurological findings on the CT scan noted. Patient noted to have previous infracts. verbal report read back to Dr. Guajardo at this time
[2020-12-11] MEDS: Albuterol 2.5 MG/3 ML VIAL.NEB. INHALATION (06:44)
[2020-12-11] MEDS: 0.9% Saline Lock 10 ML Syringe IV ×2 (07:02→10:11)
[2020-12-11] MEDS: Ondansetron 4 MG/2 ML Vial IV (07:02)
[2020-12-11] MEDS: Cholecalciferol (VIT D3) 25 MCG TABLET (1,000 UNITS) 125 MCG PO (10:11)
[2020-12-11] MEDS: proCHLORPERazine 10 MG/2 ML Vial 5 MG IV (10:11)
[2020-12-11] MEDS: Furosemide 40 MG Tablet PO (10:12)
[2020-12-11] MEDS: Senna/Docusate Sodium 1 Tablet 2 TABLET PO (10:12)
[2020-12-11] MEDS: Furosemide 20 MG Tablet PO (10:12)
[2020-12-11] MEDS: Metoprolol(XL)Succ 50 MG Tablet PO (10:12)
[2020-12-11] MEDS: Ascorbic Acid 500 MG Tablet PO (10:13)
[2020-12-11] MEDS: Aspirin 81 MG TAB.CHEW PO (10:13)
[2020-12-11] MEDS: Pantoprazole Sodium 40 MG Tablet PO (10:13)
--- NOTE | 2020-12-11 10:42 | NURSING ---
Cindy from case management called to inquire if patient can [facility] today. Ok for patient to return call nurse to nurse report and include oxygen order in discharge instructions.
--- NOTE | 2020-12-11 12:13 | PCM.TXEXTCAR ---
Diet 12/10/20 16:54 Diet: Renal - ConsCHO - Hilario Cont Food consistency:: Regular Liquid Consistency:: Regular/Thin Dietary Modifications:: Consistent Carbohydrate Fluid restriction:: 1500 mL How many daily calories?: 1800 calorie Routine Orders/Code Status Suppository Frequency: Daily PRN O2 Liters per Minute: 3-4 O2 Frequency: Continuous Keep PO Greater than or Equal to (%): 92 Routine Lab Work: CBC (Weekly) and BMP (Weekly) Code Status: Full Code Suggestions for Active Care Change Position every (hours): 2 Hours to sit in a chair: 2 Times a day to sit in chair: 3 Therapies Weight Bearing: Full weight bearing Physical Therapy: Eval and Treat Occupational Therapy: Eval and Treat Problem/Diagnosis (1) Paresthesias: Status: Acute (2) TIA (transient ischemic attack): Status: Acute Allergies/Procedures Done in Hospital Allergies amoxicillin Allergy (Verified 11/25/20 11:39) Hives benzonatate [From Tessalon Perles] Allergy (Verified 11/25/20 11:39) Hives lansoprazole [From Prevacid] Allergy (Verified 11/25/20 11:39) Other latex Allergy (Verified 11/25/20 11:39) Hives Penicillins Allergy (Verified 11/25/20 11:39) Hives silicone Adverse Reaction (Verified 12/09/20 23:46) Hives Procedures: None Type of Care/Length of Stay Estimated LOS: Convalescent Care Less Than 30 days Type of Care Needed: Skilled Rehab Potential: Good Prognosis: Fair Additional Orders/Day of Discharge Additional Orders: Patient is to follow-up with Dr. Bianchi from ENT as directed Day of Discharge: 12/11/20 Dietary and Speech Recommendations Dietitian Recommendations/Changes: Will change diet to 1800 calorie/consistent-carbohydrate; General Renal. ONS if intake fails at meals; will defer for now. Diet education as pt willing. Speech Linguistic Eval Summary: Pt. was oriented to self, place, time and situation independently, completed naming tasks with 100% accuracy, followed 1-2 step directions with 100% accuracy, completed functional problem solving with 100%, sequential tasks with up to 6 steps accurately with 100% accuracy, able to complete immediate, short term and manager terminal memory tasks with 100%. Pt. also participated in conversation with appropriate topic maintaince, attention and no word finding difficulties. No ST recommended a this time Discharge Plan Admission Admit Date/Time: 12/09/20 23:32 Attending Provider: Ann Aguilar Primary Care Provider: Alphonse Marr Consulting Providers: Liat Parker Discharge Orders/Prescriptions Prescriptions: No Action furosemide 40 mg Tablet 40 mg PO BID RF: 0 atorvastatin 40 mg tablet 40 mg PO DAILY RF: 0 metoprolol succinate 50 mg tablet extended release 24 hr 50 mg PO BID RF: 0 ondansetron HCl 4 mg tablet 4 mg PO PRN PRN (Reason: Nausea) RF: 0 omeprazole 40 mg capsule,delayed release(DR/EC) 40 mg PO DAILY RF: 0 hydroxyzine HCl 25 mg tablet 25 mg PO TID RF: 0 hydralazine 50 mg tablet 50 mg PO TID RF: 0 furosemide 20 mg Tablet 20 mg PO DAILY RF: 0 cholecalciferol (vitamin D3) 125 mcg (5,000 unit) Capsule 125 mcg PO DAILY RF: 0 ascorbic acid (vitamin C) 500 mg Tablet 500 mg PO DAILY RF: 0 insulin lispro [Humalog U-100 Insulin] 100 unit/mL solution RF: 0 insulin lispro [Humalog KwikPen Insulin] 100 unit/mL Insulin Pen See Protocol unit subcut ACHS Qty: 0 RF: 0 Insulin Basal Pump (Pt's Own) [Pump, Basal] 1 unit subcut Q24 Qty: 0 RF: 0 levofloxacin 250 mg tablet 250 mg PO Q48H Qty: 8 RF: 0
--- NOTE | 2020-12-11 12:15 | DS.PCM_ITS ---
Providers Date of Admission: 12/09/20 Primary Care Physician: Dr. Alphonse Marr, Consultations 12/10/20 02:13 Consult: Nephrology Routine Consulting Provider: Liat Parker Reason for Consult: ESRD on HD, admit w/ TIA/CVA, had CTA head and neck done. EMERGENT Consult: No MD Notified: Yes Date Notified: 12/10/20 Time Notified: 06:25 Method of Notification: Answering Service Reason For Visit: TIA Diagnosis Discharge Diagnosis (1) Paresthesias: Status: Acute Code(s): R20.2 - Paresthesia of skin (2) TIA (transient ischemic attack): Status: Acute Code(s): G45.9 - Transient cerebral ischemic attack, unspecified Medications at Discharge Home Medications ascorbic acid (vitamin C) 500 mg PO DAILY 11/25/20 atorvastatin 40 mg PO DAILY 11/25/20 cholecalciferol (vitamin D3) 125 mcg PO DAILY 11/25/20 furosemide 20 mg PO DAILY 11/25/20 furosemide 40 mg PO BID 11/25/20 hydralazine 50 mg PO TID 11/25/20 hydroxyzine HCl 25 mg PO TID 11/25/20 insulin lispro [Humalog U-100 Insulin] 11/25/20 metoprolol succinate 50 mg PO BID 11/25/20 omeprazole 40 mg PO DAILY 11/25/20 ondansetron HCl 4 mg PO PRN PRN 11/25/20 Insulin Basal Pump (Pt's Own) [Pump, Basal] 1 unit SUBCUT Q24 #0 12/06/20 insulin lispro [Humalog KwikPen Insulin] See Protocol SUBCUT ACHS #0 ml 12/06/20 levofloxacin 250 mg PO Q48H #8 tab 12/06/20 Hospital Course Operations None Procedures None Summary of Care Provided Minutes Spent on Discharge: 41 Hospital Course: Ms. Mesa is a 60-year-old white female who has a very complicated medical history who presented to the emergency department at [facility] on 12/09/2020 after experiencing sensory changes that were multifocal at dialysis on the day of admission. She described that initially the symptoms were on the right side of her face while she was at dialysis and then quickly resolved but then she started to have the sensation on the left side of her face left upper extremity and bilateral legs. Upon presentation she was completely asymptomatic and her NIH was 0. Her work-up in the emergency department was unremarkable. A CT of her head was performed in the ED and showed an age-indeterminate infarcts in the right parietal lobe and bilaterally in the cerebellum. She has a known history of paroxysmal atrial fibrillation and has been off her Eliquis secondary to a severe nosebleed. She is to follow- up with Dr. Harris and an appointment is scheduled to ascertain whether or not she would be able to go back on her anticoagulation. We did discuss this during her hospitalization and felt that it would be in her favor to go back on her anticoagulation as soon as Dr. Harris felt it was safe as she had noted that she had a severe,severe nosebleed. She is aware that she is at an increased risk of stroke being off of her systemic anticoagulation but the risk given the severity of her epistaxis was greater than the benefit at that time. Again, this is to be reevaluated soon. We were unable to pursue an MRI during her hospitalization as she has a pacemaker and is not a candidate for MRI evaluation but we did repeat a CT at 24 hours since her symptom onset and it showed no new findings compared to her previous CT done on admission. She did have one episode of the sensory changes while she was here exam revealed no paresthesias or sensory d eficits/motor deficits on exam and her NIH was 0 during this episode. I am unclear if this is anxiety related as there seems to be no neurological deficit during her experience of the symptoms. If they persist I would recommend outpatient neurology follow-up but at this time I do not feel that she needs to follow-up with anybody but her primary care physician and her regular scheduled physicians as well as Dr. Harris as noted above for reevaluation of the use of systemic anticoagulation given her risk factors. She was discharged back to the [facility] on 12/11/2020 in stable condition. Discharge diagnoses: Paresthesias-subjective Chronic hypoxic respiratory insufficiency Chronic HFpEF Elevated alk phos Elevated bilirubin Chronic leukocytosis History of transudate of right pleural effusion History of ascites History of colitis End-stage renal disease-HD dependent Chronic anemia CAD Mitral valve replacement-bioprosthetic valve Hypertension Hyperlipidemia PAF DM-2 GERD Physical Exam Const alert, oriented x3, no apparent distress and well nourished Constitutional Narrative: Overweight white female lying in bed sleeping but awakens very easily, no acute distress, denies any issues overnight, asking if she can return to her facility this morning General Appearance: cooperative, comfortable, well kempt and well developed Orientation / Consciousness: awake Nutritional Appearance: overweight HEENT normocephalic, head/scalp atraumatic, hearing grossly normal bilaterally and moist oral mucous membranes Eyes PERRL, EOMs intact bilaterally and conjunctivae normal Neck no lymphadenopathy, supple and no JVD Resp normal respiratory effort, no retractions, no use of accessory muscles and clear to auscultation bilaterally Resp Narrative: Diminished at bases bilaterally Auscultation: Negative for crackles, rales, rhonchi or wheezes Cardio regular rate, regular rhythm, S1 normal heart sound, S2 normal heart sound, no murmurs, no rub, no gallops, no clicks and no JVD GI normal to inspection, nondistended, normoactive bowel sounds, soft to palpation, non-tender and non-distended Extremity normal to inspection and no clubbing, cyanosis or edema Skin no rashes or lesions noted, no wounds, skin turgor normal and no jaundice Neuro oriented x3, CN's II-XII intact bilaterally, moves all extremities, no focal motor deficits and no sensory deficits noted Neuro Narrative: Generalized weakness but no focal findings Sensorium / Orientation: awake and alert Speech: speech normal Psych affect normal Weight / BMI Weight Weight: 83.688 kg Body Mass Index (BMI) 26.5 ABG / Lab / Microbiology Data Result Diagrams: 12/10/20 06:18 12/10/20 06:18 Microbiology: Microbiology 12/09/20 20:28 Nasal Secretion SARS-CoV-2 Antigen (Rapid) - Final Radiography Diagnostic Testing: Radiology Impression Brain CT 12/11/20 05:00 IMPRESSION: Chronic ischemic changes with no definitive evidence of acute major territorial infarct or other acute intracranial abnormality. Individualized dose optimization techniques were used for this CT. at 0621 Reported and signed by: Vineet Ferraro MD Electronically Signed: Vineet Ferraro MD at 6:20 EDT Tel , Service support , ADDENDUM: 12/11/20 0634 IMPRESSION: Chronic ischemic changes with no definitive evidence of acute major territorial infarct or other acute intracranial abnormality. Individualized dose optimization techniques were used for this CT. at 0621 Reported and signed by: Vineet Ferraro MD N.B. : The above Results were Read Back by Vineet Ferraro MD to Sukhi Hooper RN, and understanding confirmed on 12/11/2020 06:27:20 (ET). Electronically Signed: Vineet Ferraro MD at 6:20 EDT Tel , Service support , D/C Instructions Discharge Diet: Low fat / Low cholesterol and 1800 Calorie Control Diet Discharge Activity: Return to Normal Activity Meaningful Use Info Meaningful Use Diagnoses (Choose all that apply): None applicable Discharge Plan Admission Admit Date/Time: 12/09/20 23:32 Primary Reason for Your Visit: Paresthesias Attending Provider: Ann Aguilar Primary Care Provider: Alphonse Marr Consulting Providers: Liat Parker Discharge Orders/Prescriptions Prescriptions: Continued furosemide 40 mg Tablet 40 mg PO BID RF: 0 atorvastatin 40 mg tablet 40 mg PO DAILY RF: 0 metoprolol succinate 50 mg tablet extended release 24 hr 50 mg PO BID RF: 0 ondansetron HCl 4 mg tablet 4 mg PO PRN PRN (Reason: Nausea) RF: 0 omeprazole 40 mg capsule,delayed release(DR/EC) 40 mg PO DAILY RF: 0 hydroxyzine HCl 25 mg tablet 25 mg PO TID RF: 0 hydralazine 50 mg tablet 50 mg PO TID RF: 0 furosemide 20 mg Tablet 20 mg PO DAILY RF: 0 cholecalciferol (vitamin D3) 125 mcg (5,000 unit) Capsule 125 mcg PO DAILY RF: 0 ascorbic acid (vitamin C) 500 mg Tablet 500 mg PO DAILY RF: 0 insulin lispro [Humalog U-100 Insulin] 100 unit/mL solution RF: 0 insulin lispro [Humalog KwikPen Insulin] 100 unit/mL Insulin Pen See Protocol unit subcut ACHS Qty: 0 RF: 0 Insulin Basal Pump (Pt's Own) [Pump, Basal] 1 unit subcut Q24 Qty: 0 RF: 0 levofloxacin 250 mg tablet 250 mg PO Q48H Qty: 8 RF: 0 Referrals / Follow Up: Alphonse Marr DO [Primary Care Provider] - Within 1 Month Jc Harris MD [STAFF PHYSICIAN] - See Referral Note (As directed previously) Disposition Disposition (needs filled in before D/C Order can be placed): [facility] Charges/Coding Visit Charges Inpatient E&M: 67594 SNF Disch >30 Min
[2020-12-12 13:40] LABS: Pathologist Review Reviewed
[2020-12-12 13:41] LABS: Pathologist Review Reviewed
== END 2020-12-11 14:05 | disposition skilled nursing facility (03) ==
LOC: ED 20:13 → PCU 12-10 03:30
PROVIDERS: Admitting Provider Family Medicine; Emergency Provider Emergency Medicine; PCP Student in an Organized Health Care Education/Training Program; Visit Provider Internal Medicine
DX: G45.9 Transient cerebral ischemic attack, unspecified (principal); E11.22 Type 2 diabetes mellitus with diabetic chronic kidney disease; I25.10 Atherosclerotic heart disease of native coronary artery without angina pectoris; I50.33 Acute on chronic diastolic (congestive) heart failure; I13.2 Hypertensive heart and chronic kidney disease with heart failure and with stage 5 chronic kidney disease, or end stage renal disease; E78.5 Hyperlipidemia, unspecified; I48.0 Paroxysmal atrial fibrillation; I44.0 Atrioventricular block, first degree; N18.6 End stage renal disease; D63.1 Anemia in chronic kidney disease; K21.9 Gastro-esophageal reflux disease without esophagitis; E11.51 Type 2 diabetes mellitus with diabetic peripheral angiopathy without gangrene; R04.0 Epistaxis; Z87.891 Personal history of nicotine dependence; Z99.2 Dependence on renal dialysis; Z95.810 Presence of automatic (implantable) cardiac defibrillator; Z99.81 Dependence on supplemental oxygen; Z79.4 Long term (current) use of insulin; Z79.899 Other long term (current) drug therapy; Z95.2 Presence of prosthetic heart valve; Z95.1 Presence of aortocoronary bypass graft; R06.89 Other abnormalities of breathing; R74.8 Abnormal levels of other serum enzymes; R09.02 Hypoxemia
CPT/HCPCS: 36415; 70450; 70496; 70498; 80053; 80061; 82962; 83036; 83735; 84100; 84443; 84484; 85025; 87426; 92523; 92610; 93005; 94640; 94762; 96374; 96375; 96376; 97162; 97165; 97802; 99218; 99251; 99285; Q9967; A4216; G0378; G0463; J2405

== ENCOUNTER 2020-12-18 08:09 | Emergency (ER) | payer MEDICARE, MEDICAID, SELFPAY ==
[2020-12-18 08:12] VITALS: BP 177/64; PULSE 69; RESP 20; TEMP 36.4; O2SAT 93; BMI 28.3
--- NOTE | 2020-12-18 08:15 | RAD_ITS ---
STUDY: X-RAY CHEST REASON FOR EXAM: Female, 60 years old. dyspnea TECHNIQUE: Single AP portable view of the chest. COMPARISON: 12/04/2020 FINDINGS: Left subclavian dual-lead pacemaker which is unchanged. Status post coronary artery bypass grafting. The lungs are clear and expanded. Small bilateral pleural effusions with some bibasilar atelectasis which is unchanged. There is moderate cardiac enlargement. Normal mediastinum and damaris. Normal visualized pulmonary arteries. Normal visualized aortic arch and descending thoracic aorta. Normal visualized thoracic spine. Normal visualized ribs, clavicles, and shoulders. There is no demonstrated abnormality of the visualized soft tissue structures of the upper abdomen. RAD/Chest 1 View (Portable) IMPRESSION: No change from 12/04/2020. Electronically Signed: Alfred Ricardo MD at 9:16 EDT Tel , Service support ,
[2020-12-18 08:39] LABS: Absolute Lymphocyte Count 0.93 X10^3/uL (0.83-4.51); Basophil% 0.8 % (0-1); Eosinophil# 0.13 X10^3/uL; Hematocrit 30.2 % (37-47); Hemoglobin 9.6 g/dL (12.0-15.0); Lymphocyte # 0.93 X10^3/ul (0.83-4.51); Lymphocyte % 7.2 % (19-41); Mean Corp Hgb Conc 31.8 g/dL (32-36); Mean Corpuscular Hgb 28.6 pg (27.0-32.0); Mean Corpuscular Volume 89.9 fL (81-99); Mean Platelet Vol. 10.4 fl (6.2-12.0); Monocyte% 12.4 % (0-10); NRBC Flagged by Analyzer 0 % (0-5); Neutrophil # 9.99 X10^3/uL (2.7-7.7); Neutrophil % 77.5 % (47-70); POSITIVE DIFFERENTIAL YES; POSITIVE MORPHOLOGY YES; Platelet Count 503 K/mm3 (150-450); RBC Distribution Width CV 20.1 % (11.6-14.6); Red Blood Count 3.36 M/mm3 (4.2-5.4); White Blood Count 12.9 K/mm3 (4.4-11.0)
[2020-12-18 08:44] LABS: Differential Indicated SCAN CRITERIA MET
[2020-12-18 08:52] LABS: AST(SGOT) 19 U/L (15-37); Alanine Aminotransfer ALT/SGPT 18 U/L (13-56); Albumin, Serum 2.2 g/dL (3.2-5.0); Alkaline Phosphatase 407 U/L (45-117); Anion Gap 14 (5-15); BUN 61 mg/dL (7-18); BUN/Creat Ratio 8.9 RATIO (10-20); Bilirubin, Direct 0.64 mg/dL (0.00-0.30); Calcium,Total 9.4 mg/dL (8.5-10.1); Chloride 87 mmol/L (98-107); Creatinine, Serum 6.84 mg/dL (0.55-1.02); EST Glomerular Filtration Rate 7 mL/min (>60); Est Glom Filt Rate - Afr Amer 8 mL/min (>60); Estimated Creatinine Clearance 8.91 ml/min; Globulin 6.5 g/dL (2.2-4.2); Glucose 163 mg/dL (74-106); Lipase 417 U/L (73-393); Magnesium 2.2 mg/dL (1.6-2.6); Phosphorus 6.5 mg/dL (2.5-4.9); Potassium 5.6 mmol/L (3.5-5.1); Protein, Total 8.7 g/dL (6.4-8.2); Sodium Level 127 mmol/L (136-145)
[2020-12-18] MEDS: Metoclopramide 10 MG/2 ML Vial 5 MG IV (08:54)
[2020-12-18 08:56] VITALS: BP 169/65; PULSE 67; RESP 20; O2SAT 96
[2020-12-18] MEDS: proCHLORPERazine 5 MG Tablet 10 MG PO (10:07)
[2020-12-18 10:16] VITALS: BP 183/74; PULSE 66; RESP 16; O2SAT 96
--- NOTE | 2020-12-18 12:12 | EDS_ITS ---
HPI History of Present Illness Chief Complaint: Nausea/Vomiting Informant: patient and EMS Narrative Narrative: 60-year-old female presenting to the emergency department with nausea vomiting. Patient has had 2 recent admissions into the hospital. She is currently residing at the [facility]. She chronically wears 3 to 4 L nasal cannula. The patient missed dialysis on Saturday due to nausea and vomiting. She has Zofran written for her but states that she needs some thing different. Patient seems to be having more retching then actual emesis coming up. She has reportedly has not had her medications last night or this morning. [facility] Medical History Anemia CAD (coronary artery disease) Chest pain CHF (congestive heart failure) CHF exacerbation CKD (chronic kidney disease) CKD (chronic kidney disease) stage V requiring chronic dialysis Diabetes Dialysis patient ESRD (end stage renal disease) on dialysis Former tobacco use Gallbladder sludge HTN (hypertension) HTN (hypertension) Hyperlipidemia Hyponatremia Hypoxia ICD (implantable cardioverter-defibrillator) in place On home oxygen therapy PAF (paroxysmal atrial fibrillation) Pancreatitis Home Medications ascorbic acid (vitamin C) 500 mg PO DAILY 11/25/20 [History Last Taken 11/24/20] atorvastatin 40 mg PO DAILY 11/25/20 [History Last Taken 11/24/20] cholecalciferol (vitamin D3) 125 mcg PO DAILY 11/25/20 [History Last Taken 11/24/20] furosemide 20 mg PO DAILY 11/25/20 [History Last Taken 11/24/20] furosemide 40 mg PO BID 11/25/20 [History Last Taken 11/24/20] hydralazine 50 mg PO TID 11/25/20 [History Last Taken 11/25/20] hydroxyzine HCl 25 mg PO TID 11/25/20 [History Last Taken 11/25/20] insulin lispro [Humalog U-100 Insulin] 11/25/20 [History Last Taken Unknown] metoprolol succinate 50 mg PO BID 11/25/20 [History Last Taken 11/25/20] omeprazole 40 mg PO DAILY 11/25/20 [History Last Taken 11/24/20] ondansetron HCl 4 mg PO PRN PRN 11/25/20 [History Last Taken 11/25/20] Insulin Basal Pump (Pt's Own) [Pump, Basal] 1 unit SUBCUT Q24 #0 12/06/20 [Rx Last Taken Unknown] insulin lispro [Humalog KwikPen Insulin] See Protocol SUBCUT ACHS #0 ml 12/06/20 [Rx Last Taken Unknown] levofloxacin 250 mg PO Q48H #8 tab 12/06/20 [Rx Last Taken Unknown] prochlorperazine maleate [Compazine] 10 mg PO TID PRN #20 tab 12/18/20 [Rx Last Taken Unknown] Allergy/AdvReac Type Severity Reaction Status Date / Time amoxicillin Allergy Hives Verified 11/25/20 11:39 benzonatate Allergy Hives Verified 11/25/20 11:39 [From Tessalon Perles] lansoprazole [From Prevacid] Allergy Other Verified 11/25/20 11:39 latex Allergy Hives Verified 11/25/20 11:39 Penicillins Allergy Hives Verified 11/25/20 11:39 silicone AdvReac Hives Verified 12/09/20 23:46 Family History Mother Hypertension Diabetes Heart disease Father Heart disease Hypertension Diabetes Kidney disease Surgical History History of appendectomy History of arteriovenous graft History of heart artery stent History of mitral valve replacement Hx of CABG Social History housing: group home Smoking Status: Former smoker how long ago did patient quit smoking: Quit 4 years prior, smoked 1 ppd cig tob since teenager. alcohol intake: never substance use type: does not use ROS ROS ED Constitutional Constitutional ED: Denies chills or weight loss Eyes Eyes: Denies change in vision or diplopia ENT ENT ED: Denies ear pain, rhinorrhea or sore throat Cardiovascular Cardiovascular: Denies chest pain, orthopnea, palpitations or racing heartbeat Respiratory/Chest Respiratory/Chest: Denies cough, dyspnea or orthopnea Gastrointestinal Gastrointestinal: Reports nausea and vomiting; Denies abdominal pain or diarrhea Genitourinary Genitourinary ED: Denies dysuria, hematuria or urinary frequency Musculoskeletal Musculoskeletal: Denies arthralgias or myalgias Integumentary Denies abscess or rash Neurologic Neurologic: Denies headache(s) or weakness Psychiatric Psychiatric: Denies anxiety, depression, suicidal ideation or suicidal thoughts Endocrine Endocrinology: Denies polydipsia, polyphagia or polyuria Allergic/Immunologic Allergic/Immunologic ED: Denies mouth swelling, tongue swelling or urticaria EXAM Physical Exam Narrative Exam Narrative: Patient is having some retching Const Vital Signs: 12/18/20 08:12 12/18/20 08:56 12/18/20 10:16 Temperature 97.5 F L Temperature Source Oral Pulse Rate 69 67 66 Respiratory Rate 20 H 20 H 16 Blood Pressure 177/64 H 169/65 H 183/74 H Blood Pressure Mean 101 99 110 Pulse Ox 93 96 96 Oxygen Delivery Method Nasal Cannula Nasal Cannula Nasal Cannula Oxygen Flow Rate (L/min) 4 4 4 Positive well nourished, well developed and obese General Appearance ED: well developed Nutritional Appearance: obese HEENT Reports normocephalic, head/scalp atraumatic and moist mucous membranes Eyes PERRL and EOMs intact bilaterally Neck no lymphadenopathy, supple and no JVD Resp normal respiratory effort and clear to auscultation bilaterally Cardio regular rate, regular rhythm and no murmurs GI normal to inspection, nondistended, normoactive bowel sounds and non-tender Palpation: soft Back/Spine no CVA tenderness and normal ROM Extremity normal to inspection General Extremety ED: Negative for edema General Extremity: Negative for edema Neuro oriented x3 and CN's II-XII intact bilaterally Sensorium / Orientation: alert Motor Exam: strength 5/5 throughout Psych mental status grossly normal Mood & Affect: Negative for depressed or tearful Skin no rashes or lesions noted and no wounds MDM MDM MDM Narrative Medical decision making narrative: Patient originally given Zofran and then Reglan. She continued to have nausea and I gave her oral Compazine. This is allowed her to relax and she is doing significantly better. Her labs appear to be at baseline for her. BUN is 61 with a creatinine of 6.84. Phosphorus 6.5 magnesium 2.2 potassium 5.6. Patient was advised that she needs to take her medications and she needs to have dialysis tomorrow. I will write for her to have Compazine. Lab Data Attestation: I reviewed the patient's lab results. Labs: Laboratory Results - last 24 hr 12/18/20 12/18/20 08:15 08:15 WBC 12.9 H RBC 3.36 L Hgb 9.6 L Hct 30.2 L MCV 89.9 MCH 28.6 MCHC 31.8 L RDW Std Deviation 66.0 H RDW Coeff of Grazyna 20.1 H Plt Count 503 H MPV 10.4 Immature Gran % (Auto) 1.100 H Neut % (Auto) 77.5 H Lymph % (Auto) 7.2 L [place] % (Auto) 12.4 H Eos % (Auto) 1.0 Baso % (Auto) 0.8 Absolute Neuts (auto) 10.0 H Absolute Lymphs (auto) 0.93 Nucleated RBC % 0 [address] Path Review May foll Sodium 127 L Potassium 5.6 H Chloride 87 L Carbon Dioxide 26.0 Anion Gap 14 BUN 61 H Creatinine 6.84 H Estim Creat Clear Calc 8.91 Est GFR (MDRD) Af Amer 8 L Est GFR (MDRD) Non-Af 7 L BUN/Creatinine Ratio 8.9 L Glucose 163 H Calcium 9.4 Phosphorus 6.5 H Magnesium 2.2 Total Bilirubin 0.90 Direct Bilirubin 0.64 H AST 19 ALT 18 Alkaline Phosphatase 407 H Total Protein 8.7 H Albumin 2.2 L Globulin 6.5 H Lipase 417 H Radiography Diagnostic Testing: Radiology Impression Chest X-Ray 12/18/20 08:15 IMPRESSION: No change from 12/04/2020. Electronically Signed: Alfred Ricardo MD at 9:16 EDT Tel , Service support , Discharge Plan Triage Chief Complaint: Nausea/Vomiting ED Provider: Morris Sanches Dx/Rx/DC Orders Clinical Impression: Chronic kidney failure, Nausea and vomiting Prescriptions: New prochlorperazine maleate [Compazine] 10 mg tablet 10 mg PO TID PRN (Reason: nausea and vomiting) Qty: 20 RF: 0 No Action furosemide 40 mg Tablet 40 mg PO BID RF: 0 atorvastatin 40 mg tablet 40 mg PO DAILY RF: 0 metoprolol succinate 50 mg tablet extended release 24 hr 50 mg PO BID RF: 0 ondansetron HCl 4 mg tablet 4 mg PO PRN PRN (Reason: Nausea) RF: 0 omeprazole 40 mg capsule,delayed release(DR/EC) 40 mg PO DAILY RF: 0 hydroxyzine HCl 25 mg tablet 25 mg PO TID RF: 0 hydralazine 50 mg tablet 50 mg PO TID RF: 0 furosemide 20 mg Tablet 20 mg PO DAILY RF: 0 cholecalciferol (vitamin D3) 125 mcg (5,000 unit) Capsule 125 mcg PO DAILY RF: 0 ascorbic acid (vitamin C) 500 mg Tablet 500 mg PO DAILY RF: 0 insulin lispro [Humalog U-100 Insulin] 100 unit/mL solution RF: 0 insulin lispro [Humalog KwikPen Insulin] 100 unit/mL Insulin Pen See Protocol unit subcut ACHS Qty: 0 RF: 0 Insulin Basal Pump (Pt's Own) [Pump, Basal] 1 unit subcut Q24 Qty: 0 RF: 0 levofloxacin 250 mg tablet 250 mg PO Q48H Qty: 8 RF: 0 Primary Care Provider: Alphonse Marr Referrals: Alphonse Marr DO [Primary Care Provider] - As soon as possible Disposition Disposition: Home, Self Care
[2020-12-18 12:25] VITALS: BP 176/63; PULSE 66; RESP 16; O2SAT 98
[2020-12-21 09:50] LABS: Pathologist Review Reviewed
== END 2020-12-18 13:04 | disposition home or self-care (01) ==
PROVIDERS: Emergency Provider Emergency Medicine; PCP Student in an Organized Health Care Education/Training Program
DX: I13.2 Hypertensive heart and chronic kidney disease with heart failure and with stage 5 chronic kidney disease, or end stage renal disease (principal); E11.22 Type 2 diabetes mellitus with diabetic chronic kidney disease; I50.9 Heart failure, unspecified; N18.9 Chronic kidney disease, unspecified; R11.2 Nausea with vomiting, unspecified; I25.10 Atherosclerotic heart disease of native coronary artery without angina pectoris; E78.5 Hyperlipidemia, unspecified; I48.0 Paroxysmal atrial fibrillation; Z79.4 Long term (current) use of insulin; Z87.891 Personal history of nicotine dependence; Z99.2 Dependence on renal dialysis; Z79.899 Other long term (current) drug therapy
CPT/HCPCS: 71045; 80048; 80076; 83690; 83735; 84100; 85025; 96374; 96375; 99285; A4216

== ENCOUNTER 2021-03-01 19:12 | Observation (INO) | payer MEDICARE, MEDICAID, SELFPAY ==
[2021-03-02] VITALS (12 sets, daily range): BP systolic 108–145; BP diastolic 46–64; PULSE 62–67; RESP 17–18; TEMP 36.3–36.8; O2SAT 90–96; BMI 26.9
--- NOTE | 2021-03-02 00:05 | HP.PCM.HOS_ITS ---
HPI - General General Date of Admission: 03/02/21 Date of Service: 03/02/21 Chief Complaint: Intractable L hip pain HPI Narrative The patient is a 61 y/o F w/ PMHx: PAF, CAD s/p CABG and PCI, PAD, AOCD/Chronic anemia, ESRD on HD, Valvular Heart Disease s/p MVR, Chronic Diastolic CHF, HTN, HLD, GERD who presents to the [facility] as direct admission from OSH ED on 03/01/21 secondary to 3 day history of severely debilitating, acute on chronic L hip pain, difficulty bearing weight or performing any ADL activities with necessity for treatment and patient requested placement. Patient notes that she is frequently been falling including on day of presentation specifically onto the left hip with ecchymoses present. She notes that her is at home but he himself is disabled. She does report shooting radicular pain down the left lower extremity and states that if she feels as though her muscle is cramping however she had one of these episodes during evaluation and there was no evidence of any specific muscle spasms or contractures. She rates the discomfort 10 out of 10. Work-up in the OSH ED included: VS: BP 112/57, HR 63, RR 18, T 36.7, 94% on 2L (chronic 3L NC) Plain film L hip: Severe OA, no acute fracture or injury CT L hip: Severe OA, no acute fracture or injury BMP Na 137, k 3.8, Bicarb 34, Chl 97, BUN/Cr 23/2.8, glucose 225 CBC w/ WBC 8.7, Hgb 9.3, Plts 267 [facility] Medical History (Updated 03/02/21 @ 00:33 by Luz Carty) Anemia Atrial fibrillation CAD (coronary artery disease) Chest pain CHF (congestive heart failure) CHF exacerbation CKD (chronic kidney disease) CKD (chronic kidney disease) stage V requiring chronic dialysis Depression Diabetes Dialysis patient ESRD (end stage renal disease) on dialysis Former tobacco use Gallbladder sludge GERD (gastroesophageal reflux disease) HTN (hypertension) HTN (hypertension) Hyperlipidemia Hyponatremia Hypoxia ICD (implantable cardioverter-defibrillator) in place Myocardial infarct On home oxygen therapy Pacemaker PAF (paroxysmal atrial fibrillation) Pancreatitis TIA (transient ischemic attack) Home Medications ascorbic acid (vitamin C) 1,000 mg PO DAILY 11/25/20 [History Last Taken 11/24/20] atorvastatin 40 mg PO DAILY 11/25/20 [History Last Taken 11/24/20] cholecalciferol (vitamin D3) 125 mcg PO DAILY 11/25/20 [History Last Taken 11/24/20] furosemide 80 mg PO SUTUTHSA 11/25/20 [History Last Taken 11/24/20] hydralazine 25 mg PO TID 11/25/20 [History Last Taken 11/25/20] hydroxyzine HCl 25 mg PO TID PRN 11/25/20 [History Last Taken 11/25/20] metoprolol succinate 50 mg PO BID 11/25/20 [History Last Taken 11/25/20] omeprazole 40 mg PO DAILY 11/25/20 [History Last Taken 11/24/20] ondansetron HCl 4 mg PO PRN PRN 11/25/20 [History Last Taken 11/25/20] Insulin Basal Pump (Pt's Own) [Pump, Basal] 1 unit SUBCUT Q24 #0 12/06/20 [Rx Last Taken Unknown] prochlorperazine maleate [Compazine] 10 mg PO TID PRN #20 tab 12/18/20 [Rx Last Taken Unknown] Lactobacillus acidophilus [Acidophilus] 2 cap PO BID 03/02/21 [History Last Taken Unknown] apixaban [Eliquis] 2.5 mg PO BID 03/02/21 [History Last Taken Unknown] aspirin 81 mg PO DAILY 03/02/21 [History Last Taken Unknown] fluconazole 200 mg PO MOWEFR 03/02/21 [History Last Taken Unknown] sulfamethoxazole-trimethoprim 1 tab PO BID 03/02/21 [History Last Taken Unknown] Allergy/AdvReac Type Severity Reaction Status Date / Time amoxicillin Allergy Hives Verified 11/25/20 11:39 benzonatate Allergy Hives Verified 11/25/20 11:39 [From Tessalon Perles] Cephalosporins Allergy Hives Verified 03/02/21 00:37 clavulanic acid Allergy Hives Verified 03/02/21 00:37 [From Augmentin] lansoprazole [From Prevacid] Allergy Other Verified 11/25/20 11:39 latex Allergy Hives Verified 11/25/20 11:39 meropenem Allergy Hives Verified 03/02/21 00:37 Penicillins Allergy Hives Verified 11/25/20 11:39 silicone AdvReac Hives Verified 12/09/20 23:46 simethicone AdvReac PT UNSURE Verified 03/02/21 00:37 OF REACTION Family History Mother Hypertension Diabetes Heart disease Father Heart disease Hypertension Diabetes Kidney disease Surgical History History of appendectomy History of arteriovenous graft History of heart artery stent History of mitral valve replacement Hx of CABG Social History (Updated 03/02/21 @ 00:[address] Daiana Guajardo MD) household members: spouse Smoking Status: Former smoker how long ago did patient quit smoking: Quit 4 years prior, smoked 1 ppd cig tob since teenager. alcohol intake: never substance use type: does not use ROS ROS Narrative Admission Review of Systems: CONSTITUTIONAL: No weight loss, fever, chills, + weakness or fatigue. HEENT: Eyes: No visual loss, blurred vision, double vision or yellow sclerae. Ears, Nose, Throat: No hearing loss, sneezing, congestion, runny nose or sore throat. SKIN: + Ecchymoses, frequent falls recently. CARDIOVASCULAR: No chest pain, chest pressure or chest discomfort, palpitations, edema, orthopnea, syncopal events. RESPIRATORY: No shortness of breath, cough or sputum, wheezing, hemoptysis. GASTROINTESTINAL: No anorexia, nausea, vomiting or diarrhea, abdominal pain, melena, BRBPR. GENITOURINARY: No dysuria, frequency, urgency or retention. NEUROLOGICAL: + Frequent falls, intractable left hip and lower extremity pain with radiculopathy no headache, dizziness, syncope, paralysis, ataxia, focal weakness, change in bowel or bladder control, seizure. MUSCULOSKELETAL: +muscle, back pain, joint pain or stiffness. HEMATOLOGIC: + anemia, bleeding or bruising. LYMPHATICS: No enlarged nodes. No history of splenectomy. PSYCHIATRIC: + history of depression or anxiety. ENDOCRINOLOGIC: No reports of sweating, cold or heat intolerance. No polyuria or polydipsia. ALLERGIES: No history of asthma, hives, eczema or rhinitis. Physical Exam Narrative Physical Examination: General: Awake, alert, oriented x 3 and cooperative, laying in the medical surgical bed, uncomfortable appearing. Skin: Normal color, normal turgor, no icterus, no cyanosis except for staged ecchymoses including the left hip. HEENT: AT/NC, EOMI, PERRLA, mildly dry MM, no carotid bruits or JVD noted. Lungs: Mild diminished, greater bases, appropriate effort, no rales, ronchi or wheezing. Heart: Regular rate and rhythm; no gallop, rub audible. Abdomen: Soft, overweight, NTTP, ND, distant mildly hyperactive BS, no HSM. Extremities: No cyanosis, no clubbing, mild pedal to distal damian nonpitting edema, significant left hip and lower extremity pain, episode of radiculopathy during evaluation with no evidence of any muscle contracture or fasciculations. Neurological: Patient awake, alert, oriented as noted, cognitive function intact; pupils equally reactive to light and accommodation, cranial nerves II- XII grossly normal, moving all 4 extremities however significantly debilitated and limited given subjectively reported intractable left hip pain, strength accordingly severely global decreased. Psychiatric: Affect appears uncomfortable, no acute evidence of depressive or anxiety feelings. Assessment & Plan Assessment/Plan (1) Hip pain, left: PLAN: The patient is a 61 y/o F w/ PMHx: PAF, CAD s/p CABG and PCI, PAD, AOCD/Chronic anemia, ESRD on HD, Valvular Heart Disease s/p MVR, Chronic Diastolic CHF, HTN, HLD, GERD who presents to the [facility] as direct admission from OSH ED on 03/01/21 secondary to 3 day history of severely debilitating, acute on chronic L hip pain, difficulty bearing weight or performing any ADL activities with necessity for treatment and patient requested placement. 1. Intractable left hip pain with severe osteoarthritis: Given patient history poor candidate for hemiarthroplasty likely, given acute on chronic pain with no obvious fracture or injury on imaging including plain film and CT. Will admit to medical surgical floor, maintain on fall precautions, initiate Medrol Dosepak given severity of osteoarthritis, low-dose gabapentin as well as arthritic cream in addition to as needed breakthrough oral and IV narcotic therapies, maintain on fall precautions, PT/OT/case management consultations for discharge planning with consideration for skilled placement. 2. Chronic diastolic CHF: 11/25/2020 echocardiogram with normal LV systolic function, EF 55%, mildly dilated RV, mild global RV systolic dysfunction, moderately enlarged RA, stable appearing bioprosthetic MV apparatus, trivial transvalvular insufficiency of the mitral valve, moderate TVI, mild TVI, RVSP 45 mmHg. Continue aspirin, low-dose Eliquis, statin, metoprolol, lasix regimen, no on ACEI/ARB, HD patient. 3. Hx CVA: Prior visit 11/2020 with TIA, CT with noted age-indeterminate infarcts in the right parietal lobe and bilaterally in the cerebellum, unable to have MRI given pacer status, continue HTN regimen, statin therapy, insulin pump as noted in addition to aspirin, low-dose Eliquis. 4. Chronic normocytic anemia: Admission hemoglobin 9.9, baseline prior 9-10, stable, trend. 5. ESRD: Patient on hemodialysis, AVF in place, following with [facility] with HD on day of , Nephrology consulted, pending. 6. CAD, PAD: Patient per her report status post bypass surgery unclear specific vessels or number as well as PCI x1 and also reports stenting to something in her abdomen but unclear vessel, will maintain on aspirin, low-dose Eliquis, statin, metoprolol, not on JUSTIN inhibitor or ARB. 7. Valvular heart disease: Patient status post MVR, echo as noted above. 8. Hypertension: Continue home regimen including metoprolol, hydralazine, Lasix, not on JUSTIN inhibitor/ARB, PRN hydralazine. 9. Hyperlipidemia: Continue home statin regimen. 10. PAF: We will continue patient home metoprolol, sinus rhythm upon presentation, continue home low-dose aspirin and Eliquis, had previously been discontinued with severe nosebleeds but this is since improved. 11. GERD: We will continue patient home PPI. 12. DVT prophylaxis: SCDs, heparin. 13. CODE status: Full Code. Charges/Coding Visit Charges OBSV E&M: 17449 Initial observation care L3
[2021-03-02] MEDS: hydrOXYzine PAM 25 MG Capsule PO ×4 (00:59→21:19)
[2021-03-02] MEDS: Arthritis Pain Compound 60 CLICK TUBE TOPICAL ×3 (01:00→21:19)
[2021-03-02] MEDS: Atorvastatin Calcium 40 MG Tablet PO ×2 (01:00→21:18)
[2021-03-02] MEDS: MethylPREDNISolone DosePak 4 MG BOX PO ×5 (01:00→21:20)
[2021-03-02 01:11] LABS: Bedside Glucose 94 mg/dL (70-110)
[2021-03-02] MEDS: Acetaminophen 325 MG Tablet 650 MG PO (01:15)
[2021-03-02] MEDS: Gabapentin 100 MG Capsule PO ×4 (01:15→17:21)
[2021-03-02] MEDS: oxyCODONE 5 MG Tablet PO ×2 (01:15→08:55)
[2021-03-02 01:59] LABS: Erythrocyte Sedimentation Rate 117 mm/hr (0-30)
[2021-03-02 02:11] LABS: Absolute Lymphocyte Count 0.87 X10^3/uL (0.83-4.51); Absolute Neutrophil Count 6.5 X10^3/uL (2.0-7.7); Basophil% 1.1 % (0-1); Eosinophil# 0.29 X10^3/uL; Eosinophils% 3.2 % (0-5); Hematocrit 30.3 % (37-47); Hemoglobin 9.4 g/dL (12.0-15.0); Lymphocyte # 0.87 X10^3/ul (0.83-4.51); Lymphocyte % 9.5 % (19-41); Mean Corpuscular Hgb 29.7 pg (27.0-32.0); Mean Corpuscular Volume 95.6 fL (81-99); Mean Platelet Vol. 11.4 fl (6.2-12.0); Monocyte# 1.36 X10^3/uL; Monocyte% 14.9 % (0-10); NRBC Flagged by Analyzer 1.6 % (0-5); Neutrophil # 6.47 X10^3/uL (2.7-7.7); POSITIVE MORPHOLOGY YES; Platelet Count 273 K/mm3 (150-450); RBC Distribution Width CV 20.8 % (11.6-14.6); RBC Distribution Width SD 70.4 fl (35.1-43.9); Red Blood Count 3.17 M/mm3 (4.2-5.4); White Blood Count 9.1 K/mm3 (4.4-11.0)
[2021-03-02 02:26] LABS: ALB/GLOB Ratio 0.4 RATIO (0.9-2.4); AST(SGOT) 22 U/L (15-37); Alanine Aminotransfer ALT/SGPT 16 U/L (13-56); Albumin, Serum 2.3 g/dL (3.2-5.0); Alkaline Phosphatase 421 U/L (45-117); Anion Gap 7 (5-15); BUN 28 mg/dL (7-18); BUN/Creat Ratio 8.8 RATIO (10-20); Calcium,Total 9.2 mg/dL (8.5-10.1); Chloride 94 mmol/L (98-107); Differential Indicated SCAN CRITERIA MET; EST Glomerular Filtration Rate 16 mL/min (>60); Est Glom Filt Rate - Afr Amer 19 mL/min (>60); Estimated Creatinine Clearance 18.81 ml/min; Globulin 5.9 g/dL (2.2-4.2); Glucose 114 mg/dL (74-106); Potassium 3.7 mmol/L (3.5-5.1); Protein, Total 8.2 g/dL (6.4-8.2); Sodium Level 134 mmol/L (136-145)
[2021-03-02 02:44] LABS: Anisocytosis 3+
[2021-03-02] MEDS: hydrALAZINE 50 MG Tablet PO ×3 (05:31→21:19)
[2021-03-02 07:16] LABS: Bedside Glucose 75 mg/dL (70-110)
[2021-03-02] MEDS: Aspirin E.C. 81 MG Tablet PO (08:45)
--- NOTE | 2021-03-02 08:46 | CON.PCM.RE_ITS ---
Assessment & Plan Assessment/Plan (1) ESRD (end stage renal disease): PLAN: On MWF HD schedule Next HD sessio tomorrow HPI Consult Data Date of Consult: 03/02/21 HPI Narrative HPI Narrative: KENYATTA BARROW, is a 61 F PMH of MWF HD schedule. patient presened with severe L hip pain following a fall. no fracture was found by CT Renal is consulted for ESRD Patient had full session of HD yesterday ROS: 12 systems review is negative except L hip pain with movement [facility] Medical History (Updated 03/02/21 @ 08:[address] Aman He MD) Anemia Atrial fibrillation CAD (coronary artery disease) Chest pain CHF (congestive heart failure) CHF exacerbation CKD (chronic kidney disease) CKD (chronic kidney disease) stage V requiring chronic dialysis Depression Diabetes Dialysis patient ESRD (end stage renal disease) on dialysis Former tobacco use Gallbladder sludge GERD (gastroesophageal reflux disease) HTN (hypertension) HTN (hypertension) Hyperlipidemia Hyponatremia Hypoxia ICD (implantable cardioverter-defibrillator) in place Myocardial infarct On home oxygen therapy Pacemaker PAF (paroxysmal atrial fibrillation) Pancreatitis TIA (transient ischemic attack) Home Medications ascorbic acid (vitamin C) 1,000 mg PO DAILY 11/25/20 [History Last Taken 11/24/20] atorvastatin 40 mg PO DAILY 11/25/20 [History Last Taken 11/24/20] cholecalciferol (vitamin D3) 125 mcg PO DAILY 11/25/20 [History Last Taken 11/24/20] furosemide 80 mg PO SUTUTHSA 11/25/20 [History Last Taken 11/24/20] hydralazine 50 mg PO TID 11/25/20 [History Last Taken 11/25/20] hydroxyzine HCl 25 mg PO BID 11/25/20 [History Last Taken 11/25/20] metoprolol succinate 50 mg PO BID 11/25/20 [History Last Taken 11/25/20] omeprazole 40 mg PO QHS 11/25/20 [History Last Taken 11/24/20] ondansetron HCl 4 mg PO PRN PRN 11/25/20 [History Last Taken 11/25/20] Insulin Basal Pump (Pt's Own) [Pump, Basal] 1 unit SUBCUT Q24 #0 12/06/20 [Rx Last Taken Unknown] prochlorperazine maleate [Compazine] 10 mg PO TID PRN #20 tab 12/18/20 [Rx Last Taken Unknown] Lactobacillus acidophilus [Acidophilus] 2 cap PO BID 03/02/21 [History Last Taken Unknown] apixaban [Eliquis] 2.5 mg PO BID 03/02/21 [History Last Taken Unknown] aspirin 81 mg PO DAILY 03/02/21 [History Last Taken Unknown] fluconazole 200 mg PO MOWEFR 03/02/21 [History Last Taken Unknown] furosemide 40 mg PO SUTUTHSA 03/02/21 [History Last Taken Unknown] promethazine 25 mg PO BID 03/02/21 [History Last Taken Unknown] sulfamethoxazole-trimethoprim 1 tab PO BID 03/02/21 [History Last Taken Unknown] Allergy/AdvReac Type Severity Reaction Status Date / Time amoxicillin Allergy Hives Verified 11/25/20 11:39 benzonatate Allergy Hives Verified 11/25/20 11:39 [From Tessalon Perles] Cephalosporins Allergy Hives Verified 03/02/21 00:37 clavulanic acid Allergy Hives Verified 03/02/21 00:37 [From Augmentin] lansoprazole [From Prevacid] Allergy Other Verified 11/25/20 11:39 latex Allergy Hives Verified 11/25/20 11:39 meropenem Allergy Hives Verified 03/02/21 00:37 Penicillins Allergy Hives Verified 11/25/20 11:39 silicone AdvReac Hives Verified 12/09/20 23:46 simethicone AdvReac PT UNSURE Verified 03/02/21 00:37 OF REACTION Family History Mother Hypertension Diabetes Heart disease Father Heart disease Hypertension Diabetes Kidney disease Surgical History History of appendectomy History of arteriovenous graft History of heart artery stent History of mitral valve replacement Hx of CABG Social History (Updated 03/02/21 @ 00:[address] Daiana Guajardo MD) household members: spouse Smoking Status: Former smoker how long ago did patient quit smoking: Quit 4 years prior, smoked 1 ppd cig tob since teenager. alcohol intake: never substance use type: does not use Physical Exam Narrative NAD No JVD AT NC S1S2 RRR CTA SOFT + NS no tenderness AA0x3 No edema Lab / Micro Data Result Diagrams: 03/02/21 01:15 03/02/21 01:15 Labs: Laboratory Results - last 24 hr 03/02/21 00:14: POC Glucose 75 03/02/21 00:55: POC Glucose 94 03/02/21 01:15: ESR 117 H 03/02/21 01:15: C-React Prot Ext Range 84.00 H 03/02/21 01:15: WBC 9.1, RBC 3.17 L, Hgb 9.4 L, Hct 30.3 L, MCV 95.6, MCH 29.7, MCHC 31.0 L, RDW Std Deviation 70.4 H, RDW Coeff of Grazyna 20.8 H, Plt Count 273, MPV 11.4, Immature Gran % (Auto) 0.300, Neut % (Auto) 71.0 H, Lymph % (Auto) 9.5 L, [place] % (Auto) 14.9 H, Eos % (Auto) 3.2, Baso % (Auto) 1.1 H, Absolute Neuts (auto) 6.5, Absolute Lymphs (auto) 0.87, Nucleated RBC % 1.6, Anisocytosis 3+ 03/02/21 01:15: Sodium 134 L, Potassium 3.7, Chloride 94 L, Carbon Dioxide 33.0 H, Anion Gap 7, BUN 28 H, Creatinine 3.20 H, Estim Creat Clear Calc 18.81, Est GFR (MDRD) Af Amer 19 L, Est GFR (MDRD) Non-Af 16 L, BUN/Creatinine Ratio 8.8 L, Glucose 114 H, Calcium 9.2, Total Bilirubin 0.60, AST 22, ALT 16, Alkaline Phosphatase 421 H, Total Protein 8.2, Albumin 2.3 L, Globulin 5.9 H, Albumin/Globulin Ratio 0.4 L
[2021-03-02] MEDS: Smz/Tmp Ds Tablet 0.5 TABLET PO ×2 (08:47→17:22)
[2021-03-02] MEDS: Pantoprazole Sodium 40 MG Tablet PO (08:48)
[2021-03-02] MEDS: Ascorbic Acid 500 MG Tablet PO (08:48)
[2021-03-02] MEDS: Metoprolol(XL)Succ 50 MG Tablet PO ×2 (08:48→21:18)
[2021-03-02] MEDS: Insulin Basal Pump SC (08:49)
[2021-03-02] MEDS: APIXABAN 2.5 MG TABLET PO ×2 (08:55→21:19)
--- NOTE | 2021-03-02 12:30 | CASEMGMT ---
Addendum entered by Cindy Gagnon 03/02/21 20:19: Pt also told this worker that she will have her children assist with her while pt is at [facility] and while pt is at SNF. Original Note: Social Work Assessment Referral Date: 03/02/2021 Date of Assessment: 03/02/2021 Reason for consult: Poss SNF placement Informant: SW Personal Status: SW met with pt to complete initial assessment. SW introduced self and role at [facility]. Pt is alert and orientated x3, answers questions appropriately. Living Arrangements: Pt states that she lives in a two story home, with first floor arrangement, with her who is disabled. Pt states there are five steps to enter the home. PCP: Alphonse Marr Pharmacy: [facility] [place] Specialists: Dr. Moss: Livestock [employer] Supervisor DME: yosef Johnson, bedside commode ADLs: PT states she requires assistance for all ADLs Transportation: Son and Daughter Advanced Directives: Pt denied having advanced directives and denied wanting information Mental Health Hx: Pt states history of Depression and Anxiety. Pt states that she is on medication prescribed through Palliative Care. Pt states she is not sure if her Palliative care if through [facility]. Pt denied ever being in counseling. HHC: Pt states she is active with [facility] for RN, PT/OT SNF: Pt states she has been to [facility] SW spoke with pt about discharge plans. Pt states she is agreeable to SNF placement. Patient was provided a list of SNF providers including quality and resource use data and consistent with the patient?s preferred geographic region, medical needs, and insurance network. Pt's states her preferred provider is [facility]. Pt states that she was told to speak to this worker as she needs first floor house. SW informed pt that this worker cannot help pt find a new place to live but did speak to pt about Assisted Livings. SW provided pt with list of Assisted Livings. JINA placed a call to Glory at [facility] and provided referral. [facility] states [facility] no beds. SW back in to speak with pt. SW informed pt that [facility] has no beds, could try [facility] sister facility [facility]. Pt agreeable to [facility]. JINA placed a call to [facility] at [facility] and updated her on referral. SW faxed referral to [facility]. JINA received call from [facility] at [facility] stating they can accept pt and will submit for pre-cert. Glory asked about pt's dialysis days and times. SW in to speak with pt. JINA informed pt that [facility] can accept pt pending pre-cert. JINA asked pt about diaylsis days and times. [facility] states her time is either 7:30am or 7:45am. JINA placed a call to [facility] at [facility] and updated her on dialysis schedule for pt. Plan: [facility] pending pre-cert Cindy Gagnon POLICY ADVISOR, PERSONAL FITNESS MANAGER
--- NOTE | 2021-03-02 14:39 | PN.HOSP_ITS ---
Subjective Subjective Patient seen and examined. She was admitted with a complaint of severe left hip pain which had been going on for about 3 days prior to admission. SHe had associated frequent mechanical falls. She is being managed for acute on chronic left hip pain due to severe osteoarthritis. Patient seen and examined. She still complained of left hip pain. She rated it at 6/10 if she was laying still, and said it went up to 10 with movement. Objective Data Objective Data Vital Signs: Vital Signs Temp Pulse Resp BP Pulse Ox 98.2 F 65 18 125/59 H 90 03/02/21 13:30 03/02/21 14:05 03/02/21 13:30 03/02/21 13:30 03/02/21 13:30 Oxygen Flow Rate (L/min) 3 Oxygen Delivery Method Nasal Cannula Weight: 182 lb 12.211 oz Body Mass Index (BMI) 26.9 Intake & Output: Intake and Output for Last 24 Hours 02/28/21 03/01/21 03/02/21 23:59 23:59 23:59 Intake Total 520 / 520 Balance 520 / 520 Lab / Micro Data Result Diagrams: 03/02/21 01:15 03/02/21 01:15 Labs: Laboratory Results - last 24 hr 03/02/21 00:14: POC Glucose 75 03/02/21 00:55: POC Glucose 94 03/02/21 01:15: ESR 117 H 03/02/21 01:15: C-React Prot Ext Range 84.00 H 03/02/21 01:15: WBC 9.1, RBC 3.17 L, Hgb 9.4 L, Hct 30.3 L, MCV 95.6, MCH 29.7, MCHC 31.0 L, RDW Std Deviation 70.4 H, RDW Coeff of Grazyna 20.8 H, Plt Count 273, MPV 11.4, Immature Gran % (Auto) 0.300, Neut % (Auto) 71.0 H, Lymph % (Auto) 9.5 L, [place] % (Auto) 14.9 H, Eos % (Auto) 3.2, Baso % (Auto) 1.1 H, Absolute Neuts (auto) 6.5, Absolute Lymphs (auto) 0.87, Nucleated RBC % 1.6, Anisocytosis 3+ 03/02/21 01:15: Sodium 134 L, Potassium 3.7, Chloride 94 L, Carbon Dioxide 33.0 H, Anion Gap 7, BUN 28 H, Creatinine 3.20 H, Estim Creat Clear Calc 18.81, Est GFR (MDRD) Af Amer 19 L, Est GFR (MDRD) Non-Af 16 L, BUN/Creatinine Ratio 8.8 L, Glucose 114 H, Calcium 9.2, Total Bilirubin 0.60, AST 22, ALT 16, Alkaline Phosphatase 421 H, Total Protein 8.2, Albumin 2.3 L, Globulin 5.9 H, Albumin/Globulin Ratio 0.4 L Physical Exam Const alert and oriented x3 Constitutional Narrative: looks uncomfortable due to pain. Exam Limitations: no limitations HEENT head/scalp atraumatic and moist oral mucous membranes Head and Scalp: normocephalic Eyes PERRL and EOMs intact bilaterally Neck no lymphadenopathy Resp Resp Narrative: diminished breath sounds bibasally, no wheezes or crackles. Cardio regular rate, regular rhythm, S1 normal heart sound, S2 normal heart sound and no murmurs GI normal to inspection, nondistended, normoactive bowel sounds, soft to palpation, non-tender and non-distended Extremity normal to inspection, full ROM and no clubbing, cyanosis or edema Peripheral Pulses: Yes pulses 2+ throughout Skin no rashes or lesions noted Neuro oriented x3 and CN's II-XII intact bilaterally Sensorium / Orientation: awake and alert Psych affect normal Assessment & Plan Assessment/Plan (1) ESRD (end stage renal disease): (2) Hip pain, left: PLAN: #Acute on chronic Intractable left hip pain due to severe osteoarthritis * on medrol dose pack * on iV and oral morphine prn for pain. * PT.OT on board. Fall precautions * consult orthopedic surgery * #HFpEF: on lasix, aspirin and metoprolol #ESRDL on HD MWF. Nephrology consulted. #Paroxysmal afib: on metoprolol and eliquis. #GERD: on PPI #CAD: s/p stents. On aspirin, statin and metoprolol. #Valvular heart diseaese: s/p mitral valve replacement. Stable #DVT prophylaxis: on eliquis. Disposition: * will need placement as patient says she is unable to care for herself at home due to her pain, and her is also disabled so cannot help out much. Charges/Coding Visit Charges Inpatient E&M: 70668 Subs Hosp L2
[2021-03-02] MEDS: Ondansetron 8 MG Tablet PO (15:18)
--- NOTE | 2021-03-02 15:19 | PCS.PANDOC ---
PANDEMIC DOCUMENTATION INITIATED: Date: 11/28/2020 Time: 190
--- NOTE | 2021-03-02 17:20 | NURSING ---
per pt dexcom blood sugar is 327. pt states she will dose her insulin based upon that plus number of carbs she has and will eat with her supper.
--- NOTE | 2021-03-02 20:58 | CONS.ORTHO ---
HPI Consult Data Date of Consult: 03/02/21 HPI Narrative HPI Narrative: KENYATTA BARROW - This is a 61-year-old female with past medical history significant for atrial fibrillation, CAD with CABG and PCI, PAD, chronic anemia, end-stage renal disease on dialysis, valvular disease, CHF, hypertension, hyperlipidemia, GERD who was a direct admission transfer from [facility] after 3 days of severe debilitating left hip pain and difficulty bearing weight. She was seen in the emergency department at [facility] where x-rays and CT scan were obtained and demonstrated severe osteoarthritis, otherwise no acute findings. I was asked to see the patient in consultation for left hip pain. At time of examination, patient states her hip pain is much improved. She was resting comfortably at time of my examination. She was able move her hip. She states most of her pain has been on the outside of her left hip. She denies any groin or buttock pain. Denies radicular symptoms. Does report some left calf pain. States she was recently diagnosed with a right lower extremity DVT and put on blood thinners which she states she ran out of. She also admits to some bruising along the left lateral aspect of her hip which she denies any antecedent trauma to account for. She states she has had at least one similar episode in the past of this left hip pain which was treated with manual manipulation from her physician. She denies any recent change in activity, recent illness that may have prompted the hip pain. FOR[facility]LY [facility], LATER [facility] Medical History Anemia Atrial fibrillation CAD (coronary artery disease) Chest pain CHF (congestive heart failure) CHF exacerbation CKD (chronic kidney disease) CKD (chronic kidney disease) stage V requiring chronic dialysis Depression Diabetes Dialysis patient ESRD (end stage renal disease) on dialysis Former tobacco use Gallbladder sludge GERD (gastroesophageal reflux disease) HTN (hypertension) HTN (hypertension) Hyperlipidemia Hyponatremia Hypoxia ICD (implantable cardioverter-defibrillator) in place Myocardial infarct On home oxygen therapy Pacemaker PAF (paroxysmal atrial fibrillation) Pancreatitis TIA (transient ischemic attack) Home Medications ascorbic acid (vitamin C) 1,000 mg PO DAILY 11/25/20 [History Last Taken 11/24/20] atorvastatin 40 mg PO DAILY 11/25/20 [History Last Taken 11/24/20] cholecalciferol (vitamin D3) 125 mcg PO DAILY 11/25/20 [History Last Taken 11/24/20] furosemide 80 mg PO SUTUTHSA 11/25/20 [History Last Taken 11/24/20] hydralazine 50 mg PO TID 11/25/20 [History Last Taken 11/25/20] hydroxyzine HCl 25 mg PO BID 11/25/20 [History Last Taken 11/25/20] metoprolol succinate 50 mg PO BID 11/25/20 [History Last Taken 11/25/20] omeprazole 40 mg PO QHS 11/25/20 [History Last Taken 11/24/20] ondansetron HCl 4 mg PO PRN PRN 11/25/20 [History Last Taken 11/25/20] Insulin Basal Pump (Pt's Own) [Pump, Basal] 1 unit SUBCUT Q24 #0 12/06/20 [Rx Last Taken Unknown] prochlorperazine maleate [Compazine] 10 mg PO TID PRN #20 tab 12/18/20 [Rx Last Taken Unknown] Lactobacillus acidophilus [Acidophilus] 2 cap PO BID 03/02/21 [History Last Taken Unknown] apixaban [Eliquis] 2.5 mg PO BID 03/02/21 [History Last Taken Unknown] aspirin 81 mg PO DAILY 03/02/21 [History Last Taken Unknown] fluconazole 200 mg PO MOWEFR 03/02/21 [History Last Taken Unknown] furosemide 40 mg PO SUTUTHSA 03/02/21 [History Last Taken Unknown] promethazine 25 mg PO BID 03/02/21 [History Last Taken Unknown] sulfamethoxazole-trimethoprim 1 tab PO BID 03/02/21 [History Last Taken Unknown] Allergy/AdvReac Type Severity Reaction Status Date / Time amoxicillin Allergy Hives Verified 11/25/20 11:39 benzonatate Allergy Hives Verified 11/25/20 11:39 [From Tessalon Perles] Cephalosporins Allergy Hives Verified 03/02/21 00:37 clavulanic acid Allergy Hives Verified 03/02/21 00:37 [From Augmentin] lansoprazole [From Prevacid] Allergy Other Verified 11/25/20 11:39 latex Allergy Hives Verified 11/25/20 11:39 meropenem Allergy Hives Verified 03/02/21 00:37 Penicillins Allergy Hives Verified 11/25/20 11:39 silicone AdvReac Hives Verified 12/09/20 23:46 simethicone AdvReac PT UNSURE Verified 03/02/21 00:37 OF REACTION Family History Mother Hypertension Diabetes Heart disease Father Heart disease Hypertension Diabetes Kidney disease Surgical History History of appendectomy History of arteriovenous graft History of heart artery stent History of mitral valve replacement Hx of CABG Social History (Updated 03/02/21 @ 00:[address] Daiana Guajardo MD) household members: spouse Smoking Status: Former smoker how long ago did patient quit smoking: Quit 4 years prior, smoked 1 ppd cig tob since teenager. alcohol intake: never substance use type: does not use ROS ROS Narrative 10 point review systems obtained, negative unless otherwise noted in HPI. Vital Signs Vital Signs Vital Signs: 03/02/21 00:11 03/02/21 01:40 03/02/21 05:27 Temperature 98.1 F 98.1 F Temperature Source Oral Oral Pulse Rate 65 67 Pulse Strength Respiratory Rate 17 18 18 Respiratory Effort Normal Respiratory Depth Normal Respiratory Pattern Normal Blood Pressure 108/46 L 145/63 H Blood Pressure Mean 66 90 Blood Pressure Source Monitor Monitor Blood Pressure Position Supine Supine Blood Pressure Location Left Arm Left Arm Pulse Ox 95 93 Oxygen Delivery Method Nasal Cannula Nasal Cannula Nasal Cannula Oxygen Flow Rate (L/min) 3 3 3 03/02/21 05:31 03/02/21 07:39 03/02/21 07:53 Temperature 97.3 F L Temperature Source Oral Pulse Rate 67 65 Pulse Strength Respiratory Rate 18 Respiratory Effort Respiratory Depth Respiratory Pattern Blood Pressure 133/59 H Blood Pressure Mean 83 Blood Pressure Source Monitor Blood Pressure Position Supine Blood Pressure Location Left Arm Pulse Ox 93 92 Oxygen Delivery Method Nasal Cannula Nasal Cannula Oxygen Flow Rate (L/min) 3 3 03/02/21 08:48 03/02/21 09:00 03/02/21 13:30 Temperature 98.2 F Temperature Source Oral Pulse Rate 65 65 Pulse Strength Normal (2+) Respiratory Rate 18 Respiratory Effort Normal Non-Labored Respiratory Depth Normal Respiratory Pattern Normal Blood Pressure 133/59 H 125/59 H Blood Pressure Mean 81 Blood Pressure Source Monitor Blood Pressure Position Semi-Fowlers Blood Pressure Location Left Arm Pulse Ox 90 Oxygen Delivery Method Nasal Cannula Oxygen Flow Rate (L/min) 2 03/02/21 14:05 03/02/21 14:20 03/02/21 14:23 Temperature Temperature Source Pulse Rate 65 Pulse Strength Respiratory Rate Respiratory Effort Respiratory Depth Respiratory Pattern Blood Pressure Blood Pressure Mean Blood Pressure Source Blood Pressure Position Blood Pressure Location Pulse Ox Oxygen Delivery Method Oxygen Flow Rate (L/min) 3 3 03/02/21 19:27 03/02/21 19:35 Temperature 97.8 F Temperature Source Oral Pulse Rate 62 Pulse Strength Respiratory Rate 18 Respiratory Effort Normal Non-Labored Respiratory Depth Normal Respiratory Pattern Normal Blood Pressure 144/64 H Blood Pressure Mean 90 Blood Pressure Source Monitor Blood Pressure Position Semi-Fowlers Blood Pressure Location Left Arm Pulse Ox 96 Oxygen Delivery Method Nasal Cannula Nasal Cannula Oxygen Flow Rate (L/min) 3 3 Weight Weight: 182 lb 12.211 oz Body Mass Index (BMI) 26.9 Physical Exam Narrative General -A&Ox3, NAD, appears stated age. Vital signs stable, afebrile. Respiratory -normal work of breathing, no intercostal retractions. CV -pulses regular, brisk capillary refill ?4 limbs. Abdomen-soft, nontender, nondistended. No guarding, rigidity, rebound tenderness. Musculoskeletal/neurologic -full range of motion nontender throughout bilateral upper extremities, right lower extremity with full sensation and strength in all dermatomes and myotomes. No midline cervical tenderness. Nontender right calf. Left lower extremity-no obvious deformity. No pain with logroll of the left hip. Negative impingement test, negative Balbina's, nontender along the pelvis. Tender to palpation along the greater trochanter. Tender to palpation in the left calf without swelling in the negative Homans' sign. There is trace ecchymosis noted over the anterior lateral mid lower leg. Nontender throughout the left knee femoral shaft, tibial shaft and left foot/ankle. Brisk capillary refill. Sensation intact light touch L3-S1 dermatomes. DF, PF, EHL intact. DP, PT 2+. Pelvis is stable, nontender. Skin is intact without lacerations, abrasions. Lab / Micro Data Result Diagrams: 03/02/21 01:15 03/02/21 01:15 Labs: Laboratory Results - last 24 hr 03/02/21 00:14: POC Glucose 75 03/02/21 00:55: POC Glucose 94 03/02/21 01:15: ESR 117 H 03/02/21 01:15: C-React Prot Ext Range 84.00 H 03/02/21 01:15: WBC 9.1, RBC 3.17 L, Hgb 9.4 L, Hct 30.3 L, MCV 95.6, MCH 29.7, MCHC 31.0 L, RDW Std Deviation 70.4 H, RDW Coeff of Grazyna 20.8 H, Plt Count 273, MPV 11.4, Immature Gran % (Auto) 0.300, Neut % (Auto) 71.0 H, Lymph % (Auto) 9.5 L, [place]ilion % (Auto) 14.9 H, Eos % (Auto) 3.2, Baso % (Auto) 1.1 H, Absolute Neuts (auto) 6.5, Absolute Lymphs (auto) 0.87, Nucleated RBC % 1.6, Anisocytosis 3+ 03/02/21 01:15: Sodium 134 L, Potassium 3.7, Chloride 94 L, Carbon Dioxide 33.0 H, Anion Gap 7, BUN 28 H, Creatinine 3.20 H, Estim Creat Clear Calc 18.81, Est GFR (MDRD) Af Amer 19 L, Est GFR (MDRD) Non-Af 16 L, BUN/Creatinine Ratio 8.8 L, Glucose 114 H, Calcium 9.2, Total Bilirubin 0.60, AST 22, ALT 16, Alkaline Phosphatase 421 H, Total Protein 8.2, Albumin 2.3 L, Globulin 5.9 H, Albumin/Globulin Ratio 0.4 L Assessment & Plan Assessment/Plan (1) Hip pain, left: PLAN: CT and x-ray reviewed from outside hospital-agree with radiology interpretation of hip osteoarthritis. No significant effusion is apparent. Patient's pain is much improved. Recommending continued PT/OT and analgesia per primary. Her pain does not appear to be coming from the hip joint itself and unlikely to be related to the arthritis. At this time, her pain is mostly lateral and she is tender along the greater trochanter. Lateral hip pain common etiologies include but are not limited to greater trochanteric bursitis, gluteus medius or minimus tendinitis or tearing. Further treatments may be discussed in the office if pain persist to some degree including corticosteroid injection and formal outpatient therapy for abductor strengthening. Patient is stable from my standpoint. Disposition per primary. I will sign off at this point. She can follow-up with me in the office as needed for left hip pain at any point. Thank you for this consultation. Please do not hesitate to call if any questions or concerns arise. Thank you.
--- NOTE | 2021-03-02 21:27 | NURSING ---
Pt's dexcom monitor shows blood glucose level of 341. Pt administered 4.43 units Humalog via insulin pump. unable to document on JUN.
[2021-03-03] VITALS (13 sets, daily range): BP systolic 131–147; BP diastolic 61–71; PULSE 59–81; RESP 18; TEMP 36.3–36.6; O2SAT 91–96
[2021-03-03 05:39] LABS: Absolute Lymphocyte Count 0.39 X10^3/uL (0.83-4.51); Absolute Neutrophil Count 10.1 X10^3/uL (2.0-7.7); Basophil# 0.02 X10^3/uL; Basophil% 0.2 % (0-1); Hematocrit 30.7 % (37-47); Hemoglobin 9.9 g/dL (12.0-15.0); Lymphocyte # 0.39 X10^3/ul (0.83-4.51); Lymphocyte % 3.4 % (19-41); Mean Corp Hgb Conc 32.2 g/dL (32-36); Mean Corpuscular Hgb 30.6 pg (27.0-32.0); Mean Corpuscular Volume 94.8 fL (81-99); Monocyte# 0.77 X10^3/uL; Monocyte% 6.8 % (0-10); NRBC Flagged by Analyzer 1.2 % (0-5); Neutrophil # 10.14 X10^3/uL (2.7-7.7); Neutrophil % 89.1 % (47-70); POSITIVE COUNT YES; POSITIVE DIFFERENTIAL YES; POSITIVE MORPHOLOGY YES; Platelet Count 45 K/mm3 (150-450); RBC Distribution Width CV 20.7 % (11.6-14.6); Red Blood Count 3.24 M/mm3 (4.2-5.4); White Blood Count 11.4 K/mm3 (4.4-11.0)
[2021-03-03 05:45] LABS: Differential Indicated SCAN CRITERIA MET
[2021-03-03 05:56] LABS: Platelet Morphology CLUMPED
[2021-03-03] MEDS: hydrALAZINE 50 MG Tablet PO ×3 (06:19→21:07)
[2021-03-03] MEDS: hydrOXYzine PAM 25 MG Capsule PO ×3 (06:19→21:08)
--- NOTE | 2021-03-03 06:31 | PCM.HOSP.N ---
Hospitalist Note Plts dropped dramatically to 45, will repeat CBC but in the interim will stop the eliquis.
--- NOTE | 2021-03-03 06:39 | VDLE_ITS ---
Reason For Study: Pain RIGHT LEFT GSV is normal. GSV is normal. CFV is compressible, spontaneous, competent CFV is compressible, spontaneous, competent, and demonstrates pulsatile venous flow. and demonstrates pulsatile venous flow. FV is compressible, spontaneous, competent FV is compressible, spontaneous, competent and demonstrates pulsatile venous flow. and demonstrates pulsatile venous flow. POP V is compressible, spontaneous, competent POP V is compressible, spontaneous, competent and demonstrates pulsatile venous flow. and demonstrates pulsatile venous flow. T/P Trunk is compressible. T/P Trunk is compressible. PTV is compressible. PTV is compressible. RT PerV is compressible. LT PerV is compressible. Procedure This is a venous duplex using B-mode, color flow and spectral Doppler. Exam performed portable in patient room. A preliminary report was called and/or faxed to [facility]. VL/Venous Duplex US - Mehdi Extrem Interpretation Summary No evidence for acute deep venous thrombosis bilateral lower extremities with p atent and compressible bilateral great saphenous veins. Pulsatile venous flow was noted b ilaterally consistent with proximal venous hypertension or venous occlusion. Clinical correlation wou ld be appropriate. Ordering Physician: Omar Riley Referring Physician: Alphonse Marr Performed By: Cindy Bravo RVT
[2021-03-03 06:44] LABS: Absolute Lymphocyte Count 0.57 X10^3/uL (0.83-4.51); Absolute Neutrophil Count 12.2 X10^3/uL (2.0-7.7); Basophil# 0.01 X10^3/uL; Basophil% 0.1 % (0-1); Hematocrit 30.5 % (37-47); Hemoglobin 9.8 g/dL (12.0-15.0); Lymphocyte # 0.57 X10^3/ul (0.83-4.51); Lymphocyte % 4.2 % (19-41); Mean Corp Hgb Conc 32.1 g/dL (32-36); Mean Corpuscular Hgb 30.3 pg (27.0-32.0); Mean Corpuscular Volume 94.4 fL (81-99); Mean Platelet Vol. 11.3 fl (6.2-12.0); Monocyte% 6.6 % (0-10); NRBC Flagged by Analyzer 0.9 % (0-5); Neutrophil # 12.15 X10^3/uL (2.7-7.7); Neutrophil % 88.7 % (47-70); POSITIVE DIFFERENTIAL YES; POSITIVE MORPHOLOGY YES; Platelet Count 279 K/mm3 (150-450); RBC Distribution Width CV 20.7 % (11.6-14.6); RBC Distribution Width SD 67.1 fl (35.1-43.9); Red Blood Count 3.23 M/mm3 (4.2-5.4); White Blood Count 13.7 K/mm3 (4.4-11.0)
[2021-03-03 06:49] LABS: Differential Indicated SCAN CRITERIA MET
[2021-03-03 07:12] LABS: Anion Gap 10 (5-15); BUN 58 mg/dL (7-18); Calcium,Total 9.3 mg/dL (8.5-10.1); Chloride 90 mmol/L (98-107); Creatinine, Serum 4.46 mg/dL (0.55-1.02); EST Glomerular Filtration Rate 11 mL/min (>60); Est Glom Filt Rate - Afr Amer 13 mL/min (>60); Estimated Creatinine Clearance 13.49 ml/min; Glucose 277 mg/dL (74-106); Potassium 4.9 mmol/L (3.5-5.1); Sodium Level 128 mmol/L (136-145)
[2021-03-03 07:14] LABS: Anisocytosis 2+
--- NOTE | 2021-03-03 07:35 | PN.RENAL_ITS ---
Subjective Subjective No N/V/SOB No headache still with hp pain with movement Objective Data Objective Data Vital Signs: Vital Signs Temp Pulse Resp BP Pulse Ox 97.7 F L 62 18 138/61 H 92 03/03/21 06:14 03/03/21 06:19 03/03/21 06:14 03/03/21 06:14 03/03/21 06:14 Oxygen Flow Rate (L/min) 3 Oxygen Delivery Method Nasal Cannula Weight: 80.9 kg Body Mass Index (BMI) 26.9 Intake & Output: Intake and Output for Last 24 Hours 03/01/21 03/02/21 03/03/21 23:59 23:59 23:59 Intake Total 860 / 860 50 / 50 Balance 860 / 860 50 / 50 Lab / Micro Data Result Diagrams: 03/03/21 06:36 03/03/21 06:36 Labs: Laboratory Results - last 24 hr 03/03/21 05:30: WBC 11.4 H, RBC 3.24 L, Hgb 9.9 L, Hct 30.7 L, MCV 94.8, MCH 30.6, MCHC 32.2, RDW Std Deviation 68.0 H, RDW Coeff of Grazyna 20.7 H, Plt Count 45 L*, MPV TNP, Immature Gran % (Auto) 0.500, Neut % (Auto) 89.1 H, Lymph % (Auto) 3.4 L, Blanco % (Auto) 6.8, Eos % (Auto) 0.0, Baso % (Auto) 0.2, Absolute Neuts (auto) 10.1 H, Absolute Lymphs (auto) 0.39 L, Nucleated RBC % 1.2, Diff Path Review Dannielle lucio, Plt Morphology Comment CLUMPED 03/03/21 05:30: Sodium Cancelled, Potassium Cancelled, Chloride Cancelled, Carbon Dioxide Cancelled, Anion Gap Cancelled, BUN Cancelled, Creatinine Cancelled, Estim Creat Clear Calc Cancelled, Est GFR (MDRD) Af Amer Cancelled, Est GFR (MDRD) Non-Af Cancelled, BUN/Creatinine Ratio Cancelled, Glucose Cancelled, Calcium Cancelled 03/03/21 06:36: Sodium 128 L, Potassium 4.9, Chloride 90 L, Carbon Dioxide 28.0, Anion Gap 10, BUN 58 H, Creatinine 4.46 H, Estim Creat Clear Calc 13.49, Est GFR (MDRD) Af Amer 13 L, Est GFR (MDRD) Non-Af 11 L, BUN/Creatinine Ratio 13.0, Glucose 277 H, Calcium 9.3 03/03/21 06:36: WBC 13.7 H, RBC 3.23 L, Hgb 9.8 L, Hct 30.5 L, MCV 94.4, MCH 30.3, MCHC 32.1, RDW Std Deviation 67.1 H, RDW Coeff of Grazyna 20.7 H, Plt Count 279, MPV 11.3, Immature Gran % (Auto) 0.400, Neut % (Auto) 88.7 H, Lymph % (Auto) 4.2 L, Blanco % (Auto) 6.6, Eos % (Auto) 0.0, Baso % (Auto) 0.1, Absolute Neuts (auto) 12.2 H, Absolute Lymphs (auto) 0.57 L, Nucleated RBC % 0.9, Anisocytosis 2+ Physical Exam Narrative NAD No JVD AT DE S1S2 RRR CTA SOFT + NS no tenderness [id number] trace edeme of LE Assessment & Plan Assessment/Plan (1) ESRD (end stage renal disease): PLAN: On MWF HD schedule Next HD sessio today Hyponatremia: should improve with HD Anemia: Hgb is close to target Will folow
[2021-03-03] MEDS: Aspirin E.C. 81 MG Tablet PO (07:48)
[2021-03-03] MEDS: MethylPREDNISolone DosePak 4 MG BOX PO ×4 (07:48→21:07)
[2021-03-03] MEDS: Ascorbic Acid 500 MG Tablet PO (07:48)
[2021-03-03] MEDS: Smz/Tmp Ds Tablet 0.5 TABLET PO ×2 (07:49→16:22)
[2021-03-03] MEDS: Fluconazole 100 MG Tablet 200 MG PO (07:49)
[2021-03-03] MEDS: Pantoprazole Sodium 40 MG Tablet PO (07:52)
[2021-03-03] MEDS: Ondansetron 8 MG Tablet PO (10:37)
[2021-03-03] MEDS: Acetaminophen 325 MG Tablet 650 MG PO ×2 (10:37→21:14)
[2021-03-03] MEDS: oxyCODONE 5 MG Tablet PO ×2 (10:38→21:14)
[2021-03-03] MEDS: Arthritis Pain Compound 60 CLICK TUBE TOPICAL ×2 (10:38→21:07)
[2021-03-03] MEDS: Metoprolol(XL)Succ 50 MG Tablet PO ×2 (10:42→21:08)
--- NOTE | 2021-03-03 12:02 | CASEMGMT ---
OLINDA CM in to discuss LINDER form with patient. RN CM explained LINDER form, patient voiced understanding. Pt signed form and filed in chart. Pt provided with a copy of signed LINDER form. Patient had no further questions or concerns at this time.
--- NOTE | 2021-03-03 12:27 | PN.HOSP_ITS ---
Subjective Subjective Patient seen and examined. She was lying in bed. She said pain was improved but it worsened with movement of her leg. Review of systems otherwise negative. Orthopedic surgery reviewed patient's yesterday and advocated conservative management and follow-up on outpatient basis. She has otherwise remained hemodynamically stable. Objective Data Objective Data Vital Signs: Vital Signs Temp Pulse Resp BP Pulse Ox 97.6 F L 60 18 139/61 H 93 03/03/21 07:43 03/03/21 10:42 03/03/21 07:43 03/03/21 07:43 03/03/21 07:49 Oxygen Flow Rate (L/min) 3 Oxygen Delivery Method Nasal Cannula Weight: 178 lb 5.663 oz Body Mass Index (BMI) 26.9 Intake & Output: Intake and Output for Last 24 Hours 03/01/21 03/02/21 03/03/21 23:59 23:59 23:59 Intake Total 860 / 860 50 / 50 Balance 860 / 860 50 / 50 Lab / Micro Data Result Diagrams: 03/03/21 06:36 03/03/21 06:36 Labs: Laboratory Results - last 24 hr 03/03/21 05:30: WBC 11.4 H, RBC 3.24 L, Hgb 9.9 L, Hct 30.7 L, MCV 94.8, MCH 30.6, MCHC 32.2, RDW Std Deviation 68.0 H, RDW Coeff of Grazyna 20.7 H, Plt Count 45 L*, MPV TNP, Immature Gran % (Auto) 0.500, Neut % (Auto) 89.1 H, Lymph % (Auto) 3.4 L, Wood % (Auto) 6.8, Eos % (Auto) 0.0, Baso % (Auto) 0.2, Absolute Neuts (auto) 10.1 H, Absolute Lymphs (auto) 0.39 L, Nucleated RBC % 1.2, Diff Path Review August naveed, Plt Morphology Comment CLUMPED 03/03/21 05:30: Sodium Cancelled, Potassium Cancelled, Chloride Cancelled, Carbon Dioxide Cancelled, Anion Gap Cancelled, BUN Cancelled, Creatinine Cancelled, Estim Creat Clear Calc Cancelled, Est GFR (MDRD) Af Amer Cancelled, Est GFR (MDRD) Non-Af Cancelled, BUN/Creatinine Ratio Cancelled, Glucose Cancelled, Calcium Cancelled 03/03/21 06:36: Sodium 128 L, Potassium 4.9, Chloride 90 L, Carbon Dioxide 28.0, Anion Gap 10, BUN 58 H, Creatinine 4.46 H, Estim Creat Clear Calc 13.49, Est GFR (MDRD) Af Amer 13 L, Est GFR (MDRD) Non-Af 11 L, BUN/Creatinine Ratio 13.0, Glucose 277 H, Calcium 9.3 03/03/21 06:36: WBC 13.7 H, RBC 3.23 L, Hgb 9.8 L, Hct 30.5 L, MCV 94.4, MCH 30.3, MCHC 32.1, RDW Std Deviation 67.1 H, RDW Coeff of Grazyna 20.7 H, Plt Count 279, MPV 11.3, Immature Gran % (Auto) 0.400, Neut % (Auto) 88.7 H, Lymph % (Auto) 4.2 L, Wood % (Auto) 6.6, Eos % (Auto) 0.0, Baso % (Auto) 0.1, Absolute Neuts (auto) 12.2 H, Absolute Lymphs (auto) 0.57 L, Nucleated RBC % 0.9, Anisocytosis 2+ Physical Exam Const alert, oriented x3 and no apparent distress Constitutional Narrative: looks a bit more comfortable today Exam Limitations: no limitations HEENT head/scalp atraumatic and moist oral mucous membranes Head and Scalp: normocephalic Eyes PERRL and EOMs intact bilaterally Neck no lymphadenopathy Resp Resp Narrative: diminished breath sounds bibasally, no wheezes or crackles. Cardio regular rate, regular rhythm, S1 normal heart sound, S2 normal heart sound and no murmurs GI normal to inspection, nondistended, normoactive bowel sounds, soft to palpation, non-tender and non-distended Extremity normal to inspection, full ROM and no clubbing, cyanosis or edema Peripheral Pulses: Yes pulses 2+ throughout Skin no rashes or lesions noted Neuro oriented x3 and CN's II-XII intact bilaterally Sensorium / Orientation: awake and alert Psych affect normal Assessment & Plan Assessment/Plan (1) ESRD (end stage renal disease): (2) Hip pain, left: PLAN: #Acute on chronic Intractable left hip pain due to severe osteoarthritis * on medrol dose pack * on iV and oral morphine prn for pain. * PT.OT on board. Fall precautions * orthopedic surgery reviewed patient and recommends outpatient follow up * #HFpEF: on lasix, aspirin and metoprolol #ESRDL on HD MWF. Nephrology on board. Due for dialysis today #Hyponatremia: Na is 128, likely due to ESRD, as today is her dialysis day. nephrology on board. #Paroxysmal afib: on metoprolol and eliquis. #GERD: on PPI #CAD: s/p stents. On aspirin, statin and metoprolol. #Valvular heart disease: s/p mitral valve replacement. Stable #DVT prophylaxis: on eliquis. Disposition: * awaiting placement to [facility], pending precert. Charges/Coding Visit Charges Inpatient E&M: 84577 Subs Hosp L2
--- NOTE | 2021-03-03 13:38 | DS.PCM_ITS ---
Providers Date of Admission: 03/01/21 Primary Care Physician: Dr. Alphonse Marr, Consultations 03/01/21 19:12 Consult: Nephrology Routine Consulting Provider: Liat Parker Reason for Consult: ESRD on HD MWF EMERGENT Consult: No Notified: Yes Date Notified: 03/02/21 Time Notified: 08:12 Method of Notification: Answering Service 03/02/21 16:39 Consult: Orthopedics Routine Consulting Provider: Omar Riley Reason for Consult: severe left hip pain due to osteoarthritis EMERGENT Consult: No Notified: Yes Date Notified: 03/02/21 Time Notified: 16:39 Method of Notification: Text Reason For Visit: INTRACTABLE LEFT HIP PAIN Diagnosis Discharge Diagnosis (1) ESRD (end stage renal disease): Status: Acute Code(s): N18.6 - End stage renal disease (2) Hip pain, left: Status: Acute Code(s): M25.552 - Pain in left hip Medications at Discharge Home Medications ascorbic acid (vitamin C) 1,000 mg PO DAILY 11/25/20 atorvastatin 40 mg PO DAILY 11/25/20 cholecalciferol (vitamin D3) 125 mcg PO DAILY 11/25/20 furosemide 80 mg PO SUTUTHSA 11/25/20 hydralazine 50 mg PO TID 11/25/20 hydroxyzine HCl 25 mg PO BID 11/25/20 metoprolol succinate 50 mg PO BID 11/25/20 omeprazole 40 mg PO QHS 11/25/20 ondansetron HCl 4 mg PO PRN PRN 11/25/20 Insulin Basal Pump (Pt's Own) [Pump, Basal] 1 unit SUBCUT Q24 #0 12/06/20 prochlorperazine maleate [Compazine] 10 mg PO TID PRN #20 tab 12/18/20 Acidophilus 2 cap PO BID 03/02/21 Eliquis 2.5 mg PO BID 03/02/21 aspirin 81 mg PO DAILY 03/02/21 fluconazole 200 mg PO MOWEFR 03/02/21 furosemide 40 mg PO SUTUTHSA 03/02/21 promethazine 25 mg PO BID 03/02/21 sulfamethoxazole-trimethoprim 1 tab PO BID 03/02/21 oxycodone 5 mg PO Q6H PRN 5 Days #20 tab 03/03/21 Hospital Course Operations None Procedures None Summary of Care Provided Minutes Spent on Discharge: 45 Hospital Course: Patient is a 61 y/o F with an extensive PMH as outlined who was admitted directly from outside hospital on 03/01/2021 with a complaint of severe, debilitating left hip pain and difficulty bearing weight as well as difficulty performing any activities of daily living for 3 days prior to admission. She had also been falling frequently including on the day of admiss ion. She She lived with her who was also disabled and wasn't able to be of much help to her. Imaging done showed no evidence of fracture and showed severe osteoarthritis. He was started on Medrol Dosepak low-dose gabapentin. Physical therapy was consulted and work with patient. She was also put on pain medication. Orthopedic surgery was consulted and deemed that patient would benefit from conservative management now and to follow-up with outpatient basis. Patient remained stable and was discharged to a group home facility on 03/03/2021. She is to follow-up with her primary care doctor and with orthopedic surgery. Patient seen and examined prior to discharge. Pain was better today. She had no active complaints and review of stents otherwise negative. She has remained hemodynamically stable. Physical Exam Const alert, oriented x3 and no apparent distress General Appearance: cooperative, comfortable and well kempt Orientation / Consciousness: awake Exam Limitations: no limitations HEENT normocephalic, head/scalp atraumatic and moist oral mucous membranes Eyes PERRL and EOMs intact bilaterally Neck no lymphadenopathy Resp Resp Narrative: diminished breath sounds bibasally, no wheezes or crackles. Cardio regular rate, regular rhythm, S1 normal heart sound, S2 normal heart sound and no murmurs GI normal to inspection, nondistended, normoactive bowel sounds, soft to palpation, non-tender and non-distended Extremity normal to inspection, full ROM and no clubbing, cyanosis or edema Skin no rashes or lesions noted Neuro oriented x3 and CN's II-XII intact bilaterally Sensorium / Orientation: awake and alert Psych affect normal Weight / BMI Weight Weight: 178 lb 5.663 oz Body Mass Index (BMI) 26.9 ABG / Lab / Microbiology Data Result Diagrams: 03/03/21 06:36 03/03/21 06:36 Laboratory: Laboratory Results - last 24 hr 03/03/21 05:30: WBC 11.4 H, RBC 3.24 L, Hgb 9.9 L, Hct 30.7 L, MCV 94.8, MCH 30.6, MCHC 32.2, RDW Std Deviation 68.0 H, RDW Coeff of Grazyna 20.7 H, Plt Count 45 L*, MPV TNP, Immature Gran % (Auto) 0.500, Neut % (Auto) 89.1 H, Lymph % (Auto) 3.4 L, Dauphin % (Auto) 6.8, Eos % (Auto) 0.0, Baso % (Auto) 0.2, Absolute Neuts (auto) 10.1 H, Absolute Lymphs (auto) 0.39 L, Nucleated RBC % 1.2, Diff Path Review Dannielle lucio, Plt Morphology Comment CLUMPED 03/03/21 05:30: Sodium Cancelled, Potassium Cancelled, Chloride Cancelled, Carbon Dioxide Cancelled, Anion Gap Cancelled, BUN Cancelled, Creatinine Cancelled, Estim Creat Clear Calc Cancelled, Est GFR (MDRD) Af Amer Cancelled, Est GFR (MDRD) Non-Af Cancelled, BUN/Creatinine Ratio Cancelled, Glucose Cancelled, Calcium Cancelled 03/03/21 06:36: Sodium 128 L, Potassium 4.9, Chloride 90 L, Carbon Dioxide 28.0, Anion Gap 10, BUN 58 H, Creatinine 4.46 H, Estim Creat Clear Calc 13.49, Est GFR (MDRD) Af Amer 13 L, Est GFR (MDRD) Non-Af 11 L, BUN/Creatinine Ratio 13.0, Glucose 277 H, Calcium 9.3 03/03/21 06:36: WBC 13.7 H, RBC 3.23 L, Hgb 9.8 L, Hct 30.5 L, MCV 94.4, MCH 30.3, MCHC 32.1, RDW Std Deviation 67.1 H, RDW Coeff of Grazyna 20.7 H, Plt Count 279, MPV 11.3, Immature Gran % (Auto) 0.400, Neut % (Auto) 88.7 H, Lymph % (Auto) 4.2 L, Dauphin % (Auto) 6.6, Eos % (Auto) 0.0, Baso % (Auto) 0.1, Absolute Neuts (auto) 12.2 H, Absolute Lymphs (auto) 0.57 L, Nucleated RBC % 0.9, Anisocytosis 2+ D/C Instructions Discharge Diet: Low fat / Low cholesterol Discharge Activity: Return to Normal Activity Weight Bearing Status: Weight bearing as tolerated Call your doctor if you observe: Fever of 101 or Higher, Shortness of breath, Swelling in the ankles and Uncontrolled pain Meaningful Use Info Meaningful Use Diagnoses (Choose all that apply): None applicable Discharge Plan Admission Admit Date/Time: 03/01/21 19:12 Primary Reason for Your Visit: intractable left hip pain Attending Provider: Tisha Rogers Primary Care Provider: Alphonse Marr Consulting Providers: Liat Parker ; Omar Riley Instructions Patient Instructions: Hip Osteoarthritis Discharge Orders/Prescriptions Prescriptions: New oxycodone 5 mg tablet 5 mg PO Q6H PRN (Reason: pain) 5 Days Qty: 20 RF: 0 Continued furosemide 40 mg Tablet 80 mg PO SUTUTHSA RF: 0 atorvastatin 40 mg tablet 40 mg PO DAILY RF: 0 metoprolol succinate 50 mg tablet extended release 24 hr 50 mg PO BID RF: 0 ondansetron HCl 4 mg tablet 4 mg PO PRN PRN (Reason: Nausea) RF: 0 omeprazole 40 mg capsule,delayed release(DR/EC) 40 mg PO QHS RF: 0 hydroxyzine HCl 25 mg tablet 25 mg PO BID RF: 0 hydralazine 50 mg tablet 50 mg PO TID RF: 0 cholecalciferol (vitamin D3) 125 mcg (5,000 unit) Capsule 125 mcg PO DAILY RF: 0 ascorbic acid (vitamin C) 500 mg Tablet 1,000 mg PO DAILY RF: 0 Insulin Basal Pump (Pt's Own) [Pump, Basal] 1 unit subcut Q24 Qty: 0 RF: 0 prochlorperazine maleate [Compazine] 10 mg tablet 10 mg PO TID PRN (Reason: nausea and vomiting) Qty: 20 RF: 0 sulfamethoxazole-trimethoprim 400-80 mg tablet 1 tab PO BID RF: 0 fluconazole 200 mg tablet 200 mg PO MOWEFR RF: 0 aspirin 81 mg Capsule,Delayed Release(Dr/Ec) 81 mg PO DAILY RF: 0 Acidophilus Capsule 2 cap PO BID RF: 0 Eliquis 5 mg tablet 2.5 mg PO BID RF: 0 furosemide 40 mg tablet 40 mg PO SUTUTHSA RF: 0 promethazine 25 mg tablet 25 mg PO BID RF: 0 Referrals / Follow Up: Alphonse Marr DO [Primary Care Provider] - Within 2 Weeks Omar Riley DO [STAFF PHYSICIAN] - Within 1 Month Disposition Disposition (needs filled in before D/C Order can be placed): Longterm Facility Charges/Coding Visit Charges Inpatient E&M: 80356 Disch Hosp
--- NOTE | 2021-03-03 13:47 | CASEMGMT ---
Social Work Note JINA placed a call to [facility] and spoke with Angela. Angela states pre-cert has been obtained. SW updated physician. SW in to speak with pt. SW informed pt that pre-cert was obtained for SNF. SW spoke with pt regarding MH history, pt does have a diagnosis of depression. Pt states she doesn't take medication specifically for depression. SW asked pt about any Mental Health Treatment, specifically if pt has seen a counselor. Pt states she is not sure, states that she has Palliative Care and C and not sure if she has spoken to anyone regarding Mental Health. Pt states she has never been to a Mental Health Agency. SW completed PAS/RR. SW place da call to [facility] and spoke with Angela, asked how long pt's pre-cert is good for. Angela states she will check and then call this worker back. Plan: [facility] skilled under PAS/RR Cindy Gagnon SHIP SURVEYOR, INSTRUCTOR WATCH ASSEMBLY
--- NOTE | 2021-03-03 13:54 | PCM.TXEXTCAR ---
Diet 03/02/21 04:00 Diet: Cardiac: Calorie-Controlled Dietary Modifications:: Cardiac / Heart Healthy Sodium Restricted Type of Dietary Supplement:: Nepro Is pt able to select menu?: Yes How many daily calories?: 1800 calorie Routine Orders/Code Status Enema Type: Fleetz Enema Frequency: Daily PRN Suppository Type: Dulcolax 10mg Suppository Frequency: Daily PRN O2 Frequency: PRN Keep PO Greater than or Equal to (%): 90 Wound(s) rt knee: Wound Type: Abrasion Therapies Weight Bearing: Weight bearing as tolerated Physical Therapy: Eval and Treat Occupational Therapy: Eval and Treat Problem/Diagnosis (1) ESRD (end stage renal disease): Status: Acute (2) Hip pain, left: Status: Acute Allergies/Procedures Done in Hospital Allergies amoxicillin Allergy (Verified 11/25/20 11:39) Hives benzonatate [From Tessalon Perles] Allergy (Verified 11/25/20 11:39) Hives Cephalosporins Allergy (Verified 03/02/21 00:37) Hives clavulanic acid [From Augmentin] Allergy (Verified 03/02/21 00:37) Hives lansoprazole [From Prevacid] Allergy (Verified 11/25/20 11:39) Other latex Allergy (Verified 11/25/20 11:39) Hives meropenem Allergy (Verified 03/02/21 00:37) Hives Penicillins Allergy (Verified 11/25/20 11:39) Hives silicone Adverse Reaction (Verified 12/09/20 23:46) Hives simethicone Adverse Reaction (Verified 03/02/21 00:37) PT UNSURE OF REACTION Procedures: None Type of Care/Length of Stay Estimated LOS: Convalescent Care Less Than 30 days Type of Care Needed: Skilled Rehab Potential: Fair Prognosis: Fair Additional Orders/Day of Discharge Day of Discharge: 03/03/21 Dietary and Speech Recommendations Dietitian Recommendations/Changes: Will request daily weights. Discharge Plan Admission Admit Date/Time: 03/01/21 19:12 Primary Reason for Your Visit: intractable left hip pain Attending Provider: Tisha Rogers Primary Care Provider: Alphonse Marr Consulting Providers: Liat Parker ; Omar Riley Instructions Patient Instructions: Hip Osteoarthritis Discharge Orders/Prescriptions Prescriptions: New oxycodone 5 mg tablet 5 mg PO Q6H PRN (Reason: pain) 5 Days Qty: 20 RF: 0 Continued furosemide 40 mg Tablet 80 mg PO SUTUTHSA RF: 0 atorvastatin 40 mg tablet 40 mg PO DAILY RF: 0 metoprolol succinate 50 mg tablet extended release 24 hr 50 mg PO BID RF: 0 ondansetron HCl 4 mg tablet 4 mg PO PRN PRN (Reason: Nausea) RF: 0 omeprazole 40 mg capsule,delayed release(DR/EC) 40 mg PO QHS RF: 0 hydroxyzine HCl 25 mg tablet 25 mg PO BID RF: 0 hydralazine 50 mg tablet 50 mg PO TID RF: 0 cholecalciferol (vitamin D3) 125 mcg (5,000 unit) Capsule 125 mcg PO DAILY RF: 0 ascorbic acid (vitamin C) 500 mg Tablet 1,000 mg PO DAILY RF: 0 Insulin Basal Pump (Pt's Own) [Pump, Basal] 1 unit subcut Q24 Qty: 0 RF: 0 prochlorperazine maleate [Compazine] 10 mg tablet 10 mg PO TID PRN (Reason: nausea and vomiting) Qty: 20 RF: 0 sulfamethoxazole-trimethoprim 400-80 mg tablet 1 tab PO BID RF: 0 fluconazole 200 mg tablet 200 mg PO MOWEFR RF: 0 aspirin 81 mg Capsule,Delayed Release(Dr/Ec) 81 mg PO DAILY RF: 0 Acidophilus Capsule 2 cap PO BID RF: 0 Eliquis 5 mg tablet 2.5 mg PO BID RF: 0 furosemide 40 mg tablet 40 mg PO SUTUTHSA RF: 0 promethazine 25 mg tablet 25 mg PO BID RF: 0 Referrals / Follow Up: Alphonse Marr DO [Primary Care Provider] - Within 2 Weeks Omar Riley DO [STAFF PHYSICIAN] - Within 1 Month Disposition Disposition (needs filled in before D/C Order can be placed): [facility]
[2021-03-03 14:29] LABS: Pathologist Review Reviewed
[2021-03-03] MEDS: proCHLORPERazine 5 MG Tablet 10 MG PO (16:21)
--- NOTE | 2021-03-03 17:55 | CASEMGMT ---
Social Work Note JINA spoke with physician. Physician asked if [facility] has physician that can manage pt switching from Eliquis to Coumadin. JINA placed a call to [facility] and spoke with staff. VIDEO TAPE DUPLICATOR at [facility] has managed that before, [facility] is able to manage pt switching from Eliquis to Coumadin. JINA informed [facility] staff that pt will be discharged today. JINA updated physician. Pt to discharge to [facility] today. Plan: [facility] skilled today under PAS/RR care Cindy Gagnon SHAREPOINT APPLICATION ARCHITECT, HAND SANDER
[2021-03-03] MEDS: Atorvastatin Calcium 40 MG Tablet PO (21:07)
== END 2021-03-03 23:30 | disposition skilled nursing facility (03) ==
PROVIDERS: Family Medicine; Admitting Provider Internal Medicine; PCP Student in an Organized Health Care Education/Training Program; Visit Provider Student in an Organized Health Care Education/Training Program
DX: M16.12 Unilateral primary osteoarthritis, left hip (principal); Z23 Encounter for immunization; I25.10 Atherosclerotic heart disease of native coronary artery without angina pectoris; I48.0 Paroxysmal atrial fibrillation; D63.8 Anemia in other chronic diseases classified elsewhere; E11.22 Type 2 diabetes mellitus with diabetic chronic kidney disease; E78.5 Hyperlipidemia, unspecified; I13.2 Hypertensive heart and chronic kidney disease with heart failure and with stage 5 chronic kidney disease, or end stage renal disease; I50.32 Chronic diastolic (congestive) heart failure; K21.9 Gastro-esophageal reflux disease without esophagitis; N18.6 End stage renal disease; Z79.01 Long term (current) use of anticoagulants; Z95.1 Presence of aortocoronary bypass graft; Z79.82 Long term (current) use of aspirin; Z79.899 Other long term (current) drug therapy; Z79.4 Long term (current) use of insulin; Z99.2 Dependence on renal dialysis; Z95.810 Presence of automatic (implantable) cardiac defibrillator; Z95.2 Presence of prosthetic heart valve; Z96.41 Presence of insulin pump (external) (internal); Z87.891 Personal history of nicotine dependence; Z99.81 Dependence on supplemental oxygen; Z86.73 Personal history of transient ischemic attack (TIA), and cerebral infarction without residual deficits; Z86.718 Personal history of other venous thrombosis and embolism; E87.1 Hypo-osmolality and hyponatremia
CPT/HCPCS: 36415; 80048; 80053; 82962; 85025; 85652; 86140; 87426; 90937; 93970; 97162; 97166; 97530; 97535; 97802; 99218; G0008; 90686; G0257; G0378; G0379

== ENCOUNTER 2021-03-22 20:28 | Emergency (ER) | payer MEDICARE, MEDICAID, SELFPAY ==
[2021-03-22 20:29] VITALS: BP 130/54; PULSE 77; RESP 18; TEMP 36.9; O2SAT 94; BMI 27.1
--- NOTE | 2021-03-22 20:56 | EDS_ITS ---
HPI History of Present Illness Chief Complaint: Abn Labs Informant: patient and SNF Onset/Context/Timing Onset: Today Narrative Narrative: 61-year-old female extensive past medical history including A. fib, anemia, CAD, end-stage renal disease dialysis, pacemaker and cardiac stent. Reportedly had a prior DVT. Currently is on Eliquis. Denies any chest pain or shortness of breath. A D-dimer was done at the long term today I am unsure why it was elevated they sent her in. Patient denies any complaints. Prior similar symptoms: Yes Recent Illness/Hospitalization: Yes PFSH PFS Medical History Anemia Atrial fibrillation CAD (coronary artery disease) Chest pain CHF (congestive heart failure) CHF exacerbation CKD (chronic kidney disease) CKD (chronic kidney disease) stage V requiring chronic dialysis Depression Diabetes Dialysis patient ESRD (end stage renal disease) ESRD (end stage renal disease) on dialysis Former tobacco use Gallbladder sludge GERD (gastroesophageal reflux disease) Hip pain, left HTN (hypertension) HTN (hypertension) Hyperlipidemia Hyponatremia Hypoxia ICD (implantable cardioverter-defibrillator) in place Myocardial infarct On home oxygen therapy Pacemaker PAF (paroxysmal atrial fibrillation) Pancreatitis TIA (transient ischemic attack) Home Medications ascorbic acid (vitamin C) 1,000 mg PO DAILY 11/25/20 [History Last Taken 11/24/20] atorvastatin 40 mg PO DAILY 11/25/20 [History Last Taken 11/24/20] cholecalciferol (vitamin D3) 125 mcg PO DAILY 11/25/20 [History Last Taken 11/24/20] furosemide 80 mg PO SUTUTHSA 11/25/20 [History Last Taken 11/24/20] hydralazine 50 mg PO TID 11/25/20 [History Last Taken 11/25/20] hydroxyzine HCl 25 mg PO BID 11/25/20 [History Last Taken 11/25/20] metoprolol succinate 50 mg PO BID 11/25/20 [History Last Taken 11/25/20] omeprazole 40 mg PO QHS 11/25/20 [History Last Taken 11/24/20] Insulin Basal Pump (Pt's Own) [Pump, Basal] 1 unit SUBCUT Q24 #0 12/06/20 [Rx Last Taken Unknown] prochlorperazine maleate [Compazine] 10 mg PO TID PRN #20 tab 12/18/20 [Rx Last Taken Unknown] Acidophilus 2 cap PO BID 03/02/21 [History Last Taken Unknown] Eliquis 2.5 mg PO BID 03/02/21 [History Last Taken Unknown] aspirin 81 mg PO DAILY 03/02/21 [History Last Taken Unknown] fluconazole 200 mg PO MOWEFR 03/02/21 [History Last Taken Unknown] furosemide 40 mg PO SUTUTHSA 03/02/21 [History Last Taken Unknown] promethazine 25 mg PO BID 03/02/21 [History Last Taken Unknown] oxycodone 5 mg PO Q6H PRN 5 Days #20 tab 03/03/21 [Rx Last Taken Unknown] albuterol sulfate 2.5 mg INHALATION Q6H 03/22/21 [History Last Taken Unknown] methylprednisolone [Medrol (Chi)] 4 mg PO QODAY 03/22/21 [History Last Taken Unknown] Allergy/AdvReac Type Severity Reaction Status Date / Time amoxicillin Allergy Hives Verified 03/22/21 20:29 benzonatate Allergy Hives Verified 03/22/21 20:29 [From Tessalon Perles] Cephalosporins Allergy Hives Verified 03/22/21 20:29 clavulanic acid Allergy Hives Verified 03/22/21 20:29 [From Augmentin] lansoprazole [From Prevacid] Allergy Other Verified 03/22/21 20:29 latex Allergy Hives Verified 03/22/21 20:29 meropenem Allergy Hives Verified 03/22/21 20:29 Penicillins Allergy Hives Verified 03/22/21 20:29 silicone AdvReac Hives Verified 03/22/21 20:29 simethicone AdvReac PT UNSURE Verified 03/22/21 20:29 OF REACTION Family History Mother Hypertension Diabetes Heart disease Father Heart disease Hypertension Diabetes Kidney disease Surgical History History of appendectomy History of arteriovenous graft History of heart artery stent History of mitral valve replacement Hx of CABG Social History household members: spouse Smoking Status: Former smoker how long ago did patient quit smoking: Quit 4 years prior, smoked 1 ppd cig tob since teenager. alcohol intake: never substance use type: does not use ROS ROS ED ROS Narrative Denies. Review of Systems ROS Unobtainable: Denies due to encephalopathy Constitutional Constitutional ED: Denies chills or fever(s) Eyes Eyes: Denies change in vision ENT ENT ED: Denies ear pain or sore throat Cardiovascular Cardiovascular: Denies chest pain, palpitations or racing heartbeat Respiratory/Chest Respiratory/Chest: Denies cough or dyspnea Gastrointestinal Gastrointestinal: Denies abdominal pain, diarrhea, nausea or vomiting Genitourinary Genitourinary ED: Denies dysuria Musculoskeletal Musculoskeletal: Denies myalgias Integumentary Denies rash Neurologic Neurologic: Denies headache(s) Endocrine Endocrinology: Denies polyuria EXAM Physical Exam Narrative Exam Narrative: 61-year-old female no acute distress vital signs stable afebrile. HEENT exam unremarkable. Neck nontender no lymphadenopathy. Lungs clear to auscultation bilaterally. Heart regular rhythm no murmur. Abdomen soft nontender. Moving all 4 extremities. Bruise on the right lower leg. No bony deformity. Dorsi plantarflexion intact. Normal flexion-extension both knees. She is a dialysis shunt in her right upper arm. Neurologically she is awake and alert. Moving all 4 extremities. Answering questions following commands. Const Vital Signs: 03/22/21 20:29 Temperature 98.4 F Temperature Source Temporal Pulse Rate 77 Respiratory Rate 18 Blood Pressure 130/54 H Blood Pressure Mean 79 Pulse Ox 94 Oxygen Delivery Method Nasal Cannula Oxygen Flow Rate (L/min) 3 Positive well nourished and well developed; Negative for cachectic, contractures or unkempt General Appearance ED: well developed and NAD; Negative for unkempt, cachectic, contractures, cyanotic or diaphoretic Nutritional Appearance: Negative for cachectic HEENT Reports moist mucous membranes Negative for trauma or tenderness Eyes PERRL and EOMs intact bilaterally Neck no lymphadenopathy, supple and no JVD General: Negative for tenderness Chest Wall inspection of chest normal and palpation of chest normal Resp normal respiratory effort and clear to auscultation bilaterally Auscultation: Negative for rales, rhonchi or wheezes Cardio regular rate and no murmurs GI normal to inspection, nondistended, normoactive bowel sounds, non-tender and non-distended Auscultation: normoactive bowel sounds Palpation: soft Back/Spine no CVA tenderness General Back: Negative for CVA tenderness Extremity normal to inspection Extremity Narrative: Bruise right lower leg. General Extremety ED: Negative for edema or tenderness General Extremity: Negative for edema Neuro oriented x3 Sensorium / Orientation: alert; Negative for orientation impaired, lethargic or stuporous Motor Exam: strength 5/5 throughout Psych mental status grossly normal Appearance: Negative for unkempt Attitude: No agitated Mood & Affect: Negative for depressed or tearful Skin no rashes or lesions noted and no wounds Skin Narrative: Dry skin lower extremities. Guerrero right lower extremity. MDM MDM MDM Narrative Medical decision making narrative: 61-year-old with an elevated D-dimer. Is already on Eliquis. She has no chest pain or shortness of breath. I discussed with the long term. The patient has no new symptoms. She is already being treated if she had a DVT or a PE. I do not think any other tests are needed. I did review her recent labs. Lab Data Attestation: I reviewed the patient's lab results. Lab results narrative: I reviewed the patient's outpatient labs. Her hemoglobin was 9.7. Her electrolytes showed a potassium of 5.3. BUN of 52 and a creatinine of 5 she is a dialysis patient. Her D-dimer was 7. Discharge Plan Triage Chief Complaint: Abn Labs ED Provider: Neil Garcia Dx/Rx/DC Orders Clinical Impression: Encounter for medical screening examination, Chronic kidney failure, History of deep vein thrombosis, History of atrial fibrillation Prescriptions: No Action furosemide 40 mg Tablet 80 mg PO [facility] RF: 0 atorvastatin 40 mg tablet 40 mg PO DAILY RF: 0 metoprolol succinate 50 mg tablet extended release 24 hr 50 mg PO BID RF: 0 omeprazole 40 mg capsule,delayed release(DR/EC) 40 mg PO QHS RF: 0 hydroxyzine HCl 25 mg tablet 25 mg PO BID RF: 0 hydralazine 50 mg tablet 50 mg PO TID RF: 0 cholecalciferol (vitamin D3) 125 mcg (5,000 unit) Capsule 125 mcg PO DAILY RF: 0 ascorbic acid (vitamin C) 500 mg Tablet 1,000 mg PO DAILY RF: 0 Insulin Basal Pump (Pt's Own) [Pump, Basal] 1 unit subcut Q24 Qty: 0 RF: 0 prochlorperazine maleate [Compazine] 10 mg tablet 10 mg PO TID PRN (Reason: nausea and vomiting) Qty: 20 RF: 0 fluconazole 200 mg tablet 200 mg PO MOWEFR RF: 0 aspirin 81 mg Capsule,Delayed Release(Dr/Ec) 81 mg PO DAILY RF: 0 Acidophilus Capsule 2 cap PO BID RF: 0 Eliquis 5 mg tablet 2.5 mg PO BID RF: 0 furosemide 40 mg tablet 40 mg PO SUTUTHSA RF: 0 promethazine 25 mg tablet 25 mg PO BID RF: 0 oxycodone 5 mg tablet 5 mg PO Q6H PRN (Reason: pain) 5 Days Qty: 20 RF: 0 albuterol sulfate 2.5 mg /3 mL (0.083 %) Solution For Nebulization 2.5 mg INHALATION Q6H RF: 0 methylprednisolone [Medrol (Chi)] 4 mg Tablets,Dose Pack 4 mg PO QODAY RF: 0 Primary Care Provider: Alphonse Marr Referrals: Alphonse Marr DO [Primary Care Provider] - As Needed Activity Restrictions/Additional Instructions: Follow-up with your primary care physician or the medical collector of the long term. Due to the patient having A. fib she is already on Eliquis which is a blood thi nner that you would also use to treat and also either a DVT or pulmonary emboli. Therefore there is no reason at this time to do any further evaluation. Disposition Disposition: Home, Self Care
--- NOTE | 2021-03-22 21:29 | PCA ---
PHYSICIANS CALLED ETA 30-40 MINS FOR PICKUP
--- NOTE | 2021-03-22 21:52 | ED.RN ---
report to andrew
== END 2021-03-22 21:51 | disposition home or self-care (01) ==
PROVIDERS: Emergency Provider Emergency Medicine; PCP Family Medicine
DX: R79.89 Other specified abnormal findings of blood chemistry (principal); I13.2 Hypertensive heart and chronic kidney disease with heart failure and with stage 5 chronic kidney disease, or end stage renal disease; E11.22 Type 2 diabetes mellitus with diabetic chronic kidney disease; N18.6 End stage renal disease; I50.9 Heart failure, unspecified; I48.0 Paroxysmal atrial fibrillation; I25.10 Atherosclerotic heart disease of native coronary artery without angina pectoris; E78.5 Hyperlipidemia, unspecified; K21.9 Gastro-esophageal reflux disease without esophagitis; F32.A Depression, unspecified; Z99.2 Dependence on renal dialysis; Z99.81 Dependence on supplemental oxygen; Z79.4 Long term (current) use of insulin; Z79.01 Long term (current) use of anticoagulants; Z79.82 Long term (current) use of aspirin; Z79.52 Long term (current) use of systemic steroids; Z79.899 Other long term (current) drug therapy; I25.2 Old myocardial infarction; Z86.718 Personal history of other venous thrombosis and embolism; Z87.891 Personal history of nicotine dependence; Z95.0 Presence of cardiac pacemaker; Z95.5 Presence of coronary angioplasty implant and graft; Z95.1 Presence of aortocoronary bypass graft
CPT/HCPCS: 99284

== ENCOUNTER 2021-04-17 23:02 | Inpatient (IN) | payer MEDICARE, MEDICAID, SELFPAY ==
[2021-04-17 23:03] VITALS: BP 108/38; PULSE 70; RESP 23; TEMP 36.3; O2SAT 100; BMI 26.6
[2021-04-17 23:06] VITALS: O2SAT 96
--- NOTE | 2021-04-17 23:51 | EKG12_ITS ---
Test Reason : SOB Blood Pressure : / mmHG Vent. Rate : 069 BPM Atrial Rate : 069 BPM P-R Int : 244 ms QRS Dur : 102 ms QT Int : 504 ms P-R-T Axes : 083 -13 100 degrees QTc Int : 540 ms Sinus rhythm with 1st degree A-V block ST & T wave abnormality, consider lateral ischemia Prolonged QT Abnormal ECG Confirmed by MAHESH RUSSO, JAYY ([id number]), book or script editor LASHAWN GALINDO ([id number]) on 04/21/2021 9:48:42 AM Referred By: CRISTINA Confirmed By:JAYY ARAGON MD
[2021-04-18] VITALS (18 sets, daily range): BP systolic 70–126; BP diastolic 40–85; PULSE 61–92; RESP 16–28; TEMP 36.2–37.1; O2SAT 87–100; BMI 25.5
--- NOTE | 2021-04-18 00:14 | RAD_ITS ---
STUDY: X-RAY CHEST REASON FOR EXAM: Female, 61 years old. cough TECHNIQUE: Single AP portable view of the chest. COMPARISON: December 18, 2020. FINDINGS: Possible small bilateral pleural effusions. There may be mild vascular congestion. No focal infiltrates. No pneumothorax. There is mild cardiac enlargement. Normal mediastinum and damaris. Normal visualized pulmonary arteries. Atherosclerotic calcification of the aortic arch. Sternal wires. Cardiac pacemaker left hemithorax. Normal visualized thoracic spine. Normal visualized ribs, clavicles, and shoulders. There is no demonstrated abnormality of the visualized soft tissue structures of the upper abdomen. RAD/Chest 1 View (Portable) IMPRESSION: Stable cardiomegaly. Possible mild vascular congestion and small bilateral pleural effusions. Electronically Signed: Maldonado Hall MD at 1:54 EST , Service support ,
[2021-04-18 00:30] LABS: Absolute Lymphocyte Count 0.72 X10^3/uL (0.83-4.51); Absolute Neutrophil Count 17.5 X10^3/uL (2.0-7.7); Basophil# 0.07 X10^3/uL; Basophil% 0.3 % (0-1); Eosinophil# 0.03 X10^3/uL; Eosinophils% 0.1 % (0-5); Hematocrit 33.2 % (37-47); Hemoglobin 10.3 g/dL (12.0-15.0); Lymphocyte # 0.72 X10^3/ul (0.83-4.51); Lymphocyte % 3.5 % (19-41); Mean Corpuscular Hgb 30.6 pg (27.0-32.0); Mean Corpuscular Volume 98.5 fL (81-99); Mean Platelet Vol. 11.4 fl (6.2-12.0); Monocyte% 8.4 % (0-10); NRBC Flagged by Analyzer 0.3 % (0-5); Neutrophil # 17.45 X10^3/uL (2.7-7.7); POSITIVE DIFFERENTIAL YES; POSITIVE MORPHOLOGY YES; Platelet Count 290 K/mm3 (150-450); RBC Distribution Width CV 18.7 % (11.6-14.6); RBC Distribution Width SD 67.2 fl (35.1-43.9); Red Blood Count 3.37 M/mm3 (4.2-5.4); White Blood Count 20.3 K/mm3 (4.4-11.0)
[2021-04-18 00:34] LABS: Differential Indicated SCAN CRITERIA MET
[2021-04-18 00:45] LABS: Anion Gap 14 (5-15); BUN 40 mg/dL (7-18); BUN/Creat Ratio 9.4 RATIO (10-20); Chloride 93 mmol/L (98-107); Creatinine, Serum 4.27 mg/dL (0.55-1.02); EST Glomerular Filtration Rate 11 mL/min (>60); Est Glom Filt Rate - Afr Amer 14 mL/min (>60); Glucose 105 mg/dL (74-106); Magnesium 2.7 mg/dL (1.6-2.6); Phosphorus 6.1 mg/dL (2.5-4.9); Sodium Level 134 mmol/L (136-145)
[2021-04-18 01:28] LABS: Anisocytosis 1+; Differential Comment SCANNED; Macrocytosis 1+
--- NOTE | 2021-04-18 03:33 | CT_ITS ---
STUDY: CT CHEST WITHOUT CONTRAST REASON FOR EXAM: Female, 61 years old. Pleural effusion versus pneumonia RADIATION DOSAGE (If Supplied By Facility): CTDIvol = ( 14.44 ) mGy, DLP = ( 585.58 ) mGycm TECHNIQUE: Transaxial imaging was performed without the administration of intravenous contrast material. Individualized dose optimization techniques were used for this CT. COMPARISON: None. FINDINGS: Ill-defined patchy airspace opacities are seen more prominent in the lung bases , may represent atypical pneumonia or viral pneumonia (COVID-19 ?). There is no demonstrated pleural abnormality. Normal heart and pericardium. Normal mediastinum. Normal hilar regions. Normal unenhanced pulmonary arteries. Normal aorta arch and descending thoracic aorta. Normal osseous structures. There is no demonstrated abnormality of the visualized upper abdomen. CT/Chest without Contrast IMPRESSION: Ill-defined patchy airspace opacities are seen more prominent in the lung bases , may represent atypical pneumonia or viral pneumonia (COVID-19 ?). Electronically Signed: Silver Newberry MD at 4:55 EST Tel , Service support ,
[2021-04-18 04:15] LABS: Procalcitonin 1.25 ng/mL (0.00-0.09)
[2021-04-18] MEDS: levoFLOXacin IV 750 MG/150 ML BAG 100 MG IV (05:58)
--- NOTE | 2021-04-18 06:06 | HP.PCM.HOS_ITS ---
HPI - General HPI Narrative KENYATTA BARROW, is a 61 F is fine with a significant history of atrial fibrillation; diabetes mellitus on insulin pump; former smoker; end-stage renal disease (dialysis Saturday; Fridays) and who lives at a half-way and on chronic 3 L nasal cannula oxygen presents emergency department with a 2 to 3-day history of progressively worsening shortness of breath. Her shortness of breath is at rest and it increases markedly with mild exertion. Also with exertion she has lightheadedness. Further, she reports loss of voice. She reports coughing with greenish-yellow sputum. Her symptoms actually started with nausea vomiting and diarrhea. The diarrhea essentially resolved with her last bowel movement a day before presentation. She continues to have nausea and vomiting. She reports fatigue, and muscle aches. She reports anorexia. She thinks he has lost about 5 lbs since his symptoms started. She required a nonrebreather mask enroute to the hospital. At the emergency department she was slowly weaned down to her baseline oxygen of 3 L. Patient reported in the past 3 days she has about 5 Covid test and all was negative. She is immunized against COVID-19 virus with a booster. [facility] Medical History Anemia Atrial fibrillation CAD (coronary artery disease) Chest pain CHF (congestive heart failure) CHF exacerbation CKD (chronic kidney disease) CKD (chronic kidney disease) stage V requiring chronic dialysis Depression Diabetes Dialysis patient ESRD (end stage renal disease) ESRD (end stage renal disease) on dialysis Former tobacco use Gallbladder sludge GERD (gastroesophageal reflux disease) Hip pain, left HTN (hypertension) HTN (hypertension) Hyperlipidemia Hyponatremia Hypoxia ICD (implantable cardioverter-defibrillator) in place Myocardial infarct On home oxygen therapy Pacemaker PAF (paroxysmal atrial fibrillation) Pancreatitis TIA (transient ischemic attack) Home Medications ascorbic acid (vitamin C) 1,000 mg PO DAILY 11/25/20 [History Last Taken 11/24/20] atorvastatin 40 mg PO DAILY 11/25/20 [History Last Taken 11/24/20] cholecalciferol (vitamin D3) 125 mcg PO DAILY 11/25/20 [History Last Taken 11/24/20] furosemide 80 mg PO SUTUTHSA 11/25/20 [History Last Taken 11/24/20] hydralazine 50 mg PO TID 11/25/20 [History Last Taken 11/25/20] hydroxyzine HCl 25 mg PO BID 11/25/20 [History Last Taken 11/25/20] metoprolol succinate 50 mg PO BID 11/25/20 [History Last Taken 11/25/20] omeprazole 40 mg PO QHS 11/25/20 [History Last Taken 11/24/20] Insulin Basal Pump (Pt's Own) [Pump, Basal] 1 unit SUBCUT Q24 #0 12/06/20 [Rx Last Taken Unknown] prochlorperazine maleate [Compazine] 10 mg PO TID PRN #20 tab 12/18/20 [Rx Last Taken Unknown] Acidophilus 2 cap PO BID 03/02/21 [History Last Taken Unknown] Eliquis 2.5 mg PO BID 03/02/21 [History Last Taken Unknown] aspirin 81 mg PO DAILY 03/02/21 [History Last Taken Unknown] fluconazole 200 mg PO MOWEFR 03/02/21 [History Last Taken Unknown] furosemide 40 mg PO SUTUTHSA 03/02/21 [History Last Taken Unknown] promethazine 25 mg PO BID 03/02/21 [History Last Taken Unknown] oxycodone 5 mg PO Q6H PRN 5 Days #20 tab 03/03/21 [Rx Last Taken Unknown] albuterol sulfate 2.5 mg INHALATION Q6H 03/22/21 [History Last Taken Unknown] methylprednisolone [Medrol (Chi)] 4 mg PO QODAY 03/22/21 [History Last Taken Unknown] Allergy/AdvReac Type Severity Reaction Status Date / Time amoxicillin Allergy Hives Verified 04/17/21 23:13 benzonatate Allergy Hives Verified 04/17/21 23:13 [From Tessalon Perles] Cephalosporins Allergy Hives Verified 04/17/21 23:13 clavulanic acid Allergy Hives Verified 04/17/21 23:13 [From Augmentin] lansoprazole [From Prevacid] Allergy Other Verified 04/17/21 23:13 latex Allergy Hives Verified 04/17/21 23:13 meropenem Allergy Hives Verified 04/17/21 23:13 Penicillins Allergy Hives Verified 04/17/21 23:13 silicone AdvReac Hives Verified 04/17/21 23:13 simethicone AdvReac PT UNSURE Verified 04/17/21 23:13 OF REACTION Family History Mother Hypertension Diabetes Heart disease Father Heart disease Hypertension Diabetes Kidney disease Surgical History History of appendectomy History of arteriovenous graft History of heart artery stent History of mitral valve replacement Hx of CABG Social History household members: spouse Smoking Status: Former smoker how long ago did patient quit smoking: Quit 4 years prior, smoked 1 ppd cig tob since teenager. alcohol intake: never substance use type: does not use ROS ROS Narrative Constitutional: Reports, fatigue, anorexia and loss of weight. Denies fever, or chills. Eyes: Denies blurry vision, change in eye color, change in vision, discharge from eye(s), double vision, erythema, eye pain, loss of vision or other HEENT: Denies abnormal hearing, dysphagia, ear pain, epistaxis, headache(s), hearing loss, nasal congestion, nasal discharge, post nasal drip, sinus pressure, sore throat or other Cardiovascular: Denies chest pain or palpitations. Respiratory/Chest: Reports a productive cough. Reports shortness of breath. Denies wheezes. Gastrointestinal: Reports nausea and vomiting. Had diarrhea with her current symptoms but diarrhea has now resolved. Genitourinary: Patient is a dialysis patient. Musculoskeletal: Denies arthralgias, back pain, joint pain, joint stiffness, joint swelling, myalgias, neck pain or other Neurologic: Denies abnormal gait, abnormal speech, confusion, disequilibrium, focal weakness, headache(s), numbness, paresthesias, seizure-like activity, seizures, syncope, tingling, tremor(s) or other Psychiatric: Denies anxiety, depression, homicidal ideation, suicidal ideation or other Endocrinology: Denies change in body appearance, cold intolerance, excessive sweating, heat intolerance, polydipsia, polyuria or other Hematologic/Lymphatic: Denies anemia, easy bleeding, easy bruising, lymphadenopathy or other Integumentary: Denies rashes Allergic/Immunologic: Denies rhinitis, hives, eczema, asthma or other Vital Signs Vital Signs Vital Signs: 04/17/21 23:03 04/17/21 23:06 04/18/21 02:08 Temperature 97.3 F L 97.2 F L Temperature Source Temporal Temporal Pulse Rate 70 68 Respiratory Rate 23 H 17 Respiratory Effort Short of Breath Respiratory Depth Shallow Blood Pressure 108/38 L 93/66 Blood Pressure Mean 61 75 Pulse Ox 100 96 92 Oxygen Delivery Method Non-Rebreather Nasal Cannula Mechanical Ventilator Oxygen Flow Rate (L/min) 5 5 04/18/21 02:18 04/18/21 03:34 04/18/21 05:19 Temperature 97.9 F 98.2 F Temperature Source Temporal Temporal Pulse Rate 64 68 Respiratory Rate 20 H 16 Respiratory Effort Respiratory Depth Blood Pressure 111/53 L 100/76 112/53 L Blood Pressure Mean 72 84 72 Pulse Ox 92 96 Oxygen Delivery Method Nasal Cannula Nasal Cannula Oxygen Flow Rate (L/min) 6 3 04/18/21 06:01 Temperature 98.2 F Temperature Source Temporal Pulse Rate 68 Respiratory Rate 20 H Respiratory Effort Respiratory Depth Blood Pressure 125/56 H Blood Pressure Mean 79 Pulse Ox 93 Oxygen Delivery Method Nasal Cannula Oxygen Flow Rate (L/min) 3 Weight Weight: 79.379 kg Body Mass Index (BMI) 26.6 Physical Exam Narrative Physical exam: General: Well-nourished, well-developed. Head: Normocephalic, atraumatic, no tenderness Eyes: PERRLA, EOMI ENT, no trauma, dry mucous membranes, no rhinorrhea. Dry lips. Neck: Nontender, full range of motion, no spinal tenderness, deformities, step- off CVS: Regular rate and rhythm. S1-S2 present. No murmur, gallop or rub. Respiratory : Diffuse rales , chest wall nontender, no wheezing Abdomen: Soft, nontender, nondistended, normal bowel sounds, no masses : Deferred Back: Nontender, no CVA tenderness, no midline spinal tenderness, deformities, step-offs Extremities: Nontender full range of motion, no trauma Skin: Normal color, no trauma, abrasions Neuro: Alert, oriented, cranial nerves II through XII grossly intact. Psychiatry: Normal mood. Normal affect. Not depressed. Not anxious. Results Lab / Micro Data Result Diagrams: 04/17/21 23:20 04/17/21 23:20 Labs: Laboratory Results - last 24 hr 04/17/21 23:20: WBC 20.3 H, RBC 3.37 L, Hgb 10.3 L, Hct 33.2 L, MCV 98.5, MCH 30.6, MCHC 31.0 L, RDW Std Deviation 67.2 H, RDW Coeff of Grazyna 18.7 H, Plt Count 290, MPV 11.4, Immature Gran % (Auto) 1.700 H, Neut % (Auto) 86.0 H, Lymph % (Auto) 3.5 L, [place] % (Auto) 8.4, Eos % (Auto) 0.1, Baso % (Auto) 0.3, Absolute Neuts (auto) 17.5 H, Absolute Lymphs (auto) 0.72 L, Nucleated RBC % 0.3, Differential Comment SCANNED, Diff Path Review May foll, Anisocytosis 1+, Mac rocytosis 1+ 04/17/21 23:20: Sodium 134 L, Potassium 5.0, Chloride 93 L, Carbon Dioxide 27.0, Anion Gap 14, BUN 40 H, Creatinine 4.27 H, Estim Creat Clear Calc 13.60, Est GFR (MDRD) Af Amer 14 L, Est GFR (MDRD) Non-Af 11 L, BUN/Creatinine Ratio 9.4 L, Glucose 105, Calcium 9.0, Phosphorus 6.1 H, Magnesium 2.7 H 04/17/21 23:20: Procalcitonin 1.25 H Micro: Microbiology 04/18/21 03:40 Nasal Secretion SARS-CoV-2 Antigen (Rapid) - Final Radiology Impression Chest X-Ray 04/18/21 00:14 IMPRESSION: Stable cardiomegaly. Possible mild vascular congestion and small bilateral pleural effusions. Electronically Signed: Maldonado Hall MD at 1:54 EST , Service support , Chest CT 04/18/21 03:33 IMPRESSION: Ill-defined patchy airspace opacities are seen more prominent in the lung bases , may represent atypical pneumonia or viral pneumonia (COVID-19 ?). Electronically Signed: Silver Newberry MD at 4:55 EST Tel , Service support , Assessment & Plan Assessment/Plan (1) Pneumonia: QUALIFIERS: Pneumonia type: due to unspecified organism Laterality: bilateral Lung location: unspecified part of lung Qualified Code(s): J18.9 - Pneumonia, unspecified organism PLAN: Pneumonia Gram-positive, gram-negative, atypical or viral. Review of labs showed a procalcitonin of 1.25. Of note patient has end-stage renal disease that can affect procalcitonin. White count of 20.3. Review of labs showed that her white count on 03/03/2021 was 13.7. Chest CTA was independently interpreted. Chest CT with bilateral opacities. I agree with alleges interpretation. Blood cultures ordered emergency department, follow-up. Sputum culture ordered. Does not meet sepsis criteria with a qSOFA or SIRS criteria. Sepsis ruled out. Patient has multiple allergies. Received vancomycin IV and Levaquin IV at the emergency department and continued. Levaquin dosed renally. Vancomycin pharmacy to dose. Legionella antigen screen and Strep antigen ordered. Influenza screen ordered. Rapid Covid screen presentation was negative and multiple Covid screen in the past 3 days has been negative. Trend CBC and BMP Diabetes mellitus Patient with euglycemia on presentation. Accu-Chek QA CHS. Patient on insulin pump, continue. End-stage renal disease on dialysis Nephrology consult Hyperphosphatemia Likely secondary to renal disease. Review of labs showed high phosphorus level. PhosLo ordered. Dry mucous membranes and cracked lips. Encourage fluids and apply chapstick. DVT prophylaxis: Subcutaneous heparin ordered. Charges/Coding Visit Charges Inpatient E&M: 05351 Init Hosp L3
--- NOTE | 2021-04-18 06:34 | EX.ED.DYSGE1 ---
HPI History of Present Illness Chief Complaint: Shortness of Breath Narrative Narrative: Patient is a 61-year-old female from the [facility] with past medical history of chronic renal failure who receives dialysis Saturday and Saturday. She also has a history of paroxysmal atrial fibrillation and takes Eliquis for this. She states she has had congestion cough and increased shortness of breath especially with any type of minimal exertion over the past 3 to 4 days. She states she has been tested for Covid multiple times at the [facility] and has been negative. She states that this evening her oxygen had to be increased from 3 L at baseline because of her increased shortness of breath and secondary to this she was sent to the hospital for evaluation. [facility] Medical History Anemia Atrial fibrillation CAD (coronary artery disease) Chest pain CHF (congestive heart failure) CHF exacerbation CKD (chronic kidney disease) CKD (chronic kidney disease) stage V requiring chronic dialysis Depression Diabetes Dialysis patient ESRD (end stage renal disease) ESRD (end stage renal disease) on dialysis Former tobacco use Gallbladder sludge GERD (gastroesophageal reflux disease) Hip pain, left HTN (hypertension) HTN (hypertension) Hyperlipidemia Hyponatremia Hypoxia ICD (implantable cardioverter-defibrillator) in place Myocardial infarct On home oxygen therapy Pacemaker PAF (paroxysmal atrial fibrillation) Pancreatitis TIA (transient ischemic attack) Home Medications ascorbic acid (vitamin C) 1,000 mg PO DAILY 11/25/20 [History Last Taken 11/24/20] atorvastatin 40 mg PO DAILY 11/25/20 [History Last Taken 11/24/20] cholecalciferol (vitamin D3) 125 mcg PO DAILY 11/25/20 [History Last Taken 11/24/20] furosemide 80 mg PO SUTUTHSA 11/25/20 [History Last Taken 11/24/20] hydralazine 50 mg PO TID 11/25/20 [History Last Taken 11/25/20] hydroxyzine HCl 25 mg PO BID 11/25/20 [History Last Taken 11/25/20] metoprolol succinate 50 mg PO BID 11/25/20 [History Last Taken 11/25/20] omeprazole 40 mg PO QHS 11/25/20 [History Last Taken 11/24/20] Insulin Basal Pump (Pt's Own) [Pump, Basal] 1 unit SUBCUT Q24 #0 12/06/20 [Rx Last Taken Unknown] prochlorperazine maleate [Compazine] 10 mg PO TID PRN #20 tab 12/18/20 [Rx Last Taken Unknown] Acidophilus 2 cap PO BID 03/02/21 [History Last Taken Unknown] Eliquis 2.5 mg PO BID 03/02/21 [History Last Taken Unknown] aspirin 81 mg PO DAILY 03/02/21 [History Last Taken Unknown] fluconazole 200 mg PO MOWEFR 03/02/21 [History Last Taken Unknown] furosemide 40 mg PO SUTUTHSA 03/02/21 [History Last Taken Unknown] promethazine 25 mg PO BID 03/02/21 [History Last Taken Unknown] oxycodone 5 mg PO Q6H PRN 5 Days #20 tab 03/03/21 [Rx Last Taken Unknown] albuterol sulfate 2.5 mg INHALATION Q6H 03/22/21 [History Last Taken Unknown] methylprednisolone [Medrol (Chi)] 4 mg PO QODAY 03/22/21 [History Last Taken Unknown] Allergy/AdvReac Type Severity Reaction Status Date / Time amoxicillin Allergy Hives Verified 04/17/21 23:13 benzonatate Allergy Hives Verified 04/17/21 23:13 [From Tessalon Perles] Cephalosporins Allergy Hives Verified 04/17/21 23:13 clavulanic acid Allergy Hives Verified 04/17/21 23:13 [From Augmentin] lansoprazole [From Prevacid] Allergy Other Verified 04/17/21 23:13 latex Allergy Hives Verified 04/17/21 23:13 meropenem Allergy Hives Verified 04/17/21 23:13 Penicillins Allergy Hives Verified 04/17/21 23:13 silicone AdvReac Hives Verified 04/17/21 23:13 simethicone AdvReac PT UNSURE Verified 04/17/21 23:13 OF REACTION Family History Mother Hypertension Diabetes Heart disease Father Heart disease Hypertension Diabetes Kidney disease Surgical History History of appendectomy History of arteriovenous graft History of heart artery stent History of mitral valve replacement Hx of CABG Social History household members: spouse Smoking Status: Former smoker how long ago did patient quit smoking: Quit 4 years prior, smoked 1 ppd cig tob since teenager. alcohol intake: never substance use type: does not use ROS ROS ED Constitutional Constitutional ED: Denies chills or fever(s) ENT ENT ED: Reports rhinorrhea and sore throat Cardiovascular Cardiovascular: Denies chest pain Respiratory/Chest Respiratory/Chest: Reports cough, dyspnea, dyspnea on exertion and sputum Gastrointestinal Gastrointestinal: Denies abdominal pain, diarrhea, nausea or vomiting Musculoskeletal Musculoskeletal: Reports myalgias Integumentary Denies rash Neurologic Neurologic: Denies headache(s) Hematologic/Lymphatic Hematologic/Lymphatic: Reports easy bleeding and easy bruising EXAM Physical Exam Const Vital Signs: 04/17/21 23:03 04/17/21 23:06 04/18/21 02:08 Temperature 97.3 F L 97.2 F L Temperature Source Temporal Temporal Pulse Rate 70 68 Respiratory Rate 23 H 17 Respiratory Effort Short of Breath Respiratory Depth Shallow Blood Pressure 108/38 L 93/66 Blood Pressure Mean 61 75 Pulse Ox 100 96 92 Oxygen Delivery Method Non-Rebreather Nasal Cannula Mechanical Ventilator Oxygen Flow Rate (L/min) 5 5 04/18/21 02:18 04/18/21 03:34 04/18/21 05:19 Temperature 97.9 F 98.2 F Temperature Source Temporal Temporal Pulse Rate 64 68 Respiratory Rate 20 H 16 Respiratory Effort Respiratory Depth Blood Pressure 111/53 L 100/76 112/53 L Blood Pressure Mean 72 84 72 Pulse Ox 92 96 Oxygen Delivery Method Nasal Cannula Nasal Cannula Oxygen Flow Rate (L/min) 6 3 04/18/21 06:01 04/18/21 06:41 04/18/21 06:44 Temperature 98.2 F 98.8 F Temperature Source Temporal Temporal Pulse Rate 68 70 Respiratory Rate 20 H 19 H Respiratory Effort Respiratory Depth Blood Pressure 125/56 H 103/85 H Blood Pressure Mean 79 91 Pulse Ox 93 87 95 Oxygen Delivery Method Nasal Cannula Nasal Cannula Nasal Cannula Oxygen Flow Rate (L/min) 3 4 5 Positive well nourished and well developed General Appearance ED: well developed HEENT Reports dry mucous membranes HEENT Narrative: Mucous membranes are dry and tacky there is sinus drainage in the posterior pharynx but no tongue or lip swelling no airway edema or compromise Mouth ED: Yes dry mucous membranes Mouth: dry mucous membranes Eyes PERRL and EOMs intact bilaterally General Eye ED: Yes pale conjunctiva Neck supple and no JVD Chest Wall palpation of chest normal Resp Resp Narrative: Breath sounds are diminished through out with rhonchi in the bilateral bases and diffuse expiratory wheezing. Patient has mild tachypnea noted as well. Cardio regular rate and regular rhythm GI normal to inspection, nondistended, normoactive bowel sounds, non-tender and non-distended GI Narrative: No voluntary guarding or rigidity no pulsatile mass Auscultation: normoactive bowel sounds Palpation: soft Extremity normal to inspection Extremity Narrative: No asymmetric edema no pitting edema negative Homans' sign bilaterally. Patient has a fistula in the right upper arm with palpable thrill and good bruit. Neuro oriented x3 and CN's II-XII intact bilaterally Sensorium / Orientation: alert Psych mental status grossly normal Skin Skin Narrative: In color and has increased skin turgor MDM MDM MDM Narrative Medical decision making narrative: Patient scented to the ER afebrile and was satting in the low 90s on her normal 3 L. However based on her worsening symptoms and poor medical health because of her end-stage renal disease on dialysis I did elect to perform a basic work-up. Her EKG was normal sinus rhythm with a first-degree AV block. Chest x-ray showed mild pleural effusion with no obvious infiltrate. However her white blood cell count is elevated at 20.3 and therefore I am concerned that it was missing a pneumonia so I added a noncontrast CT of the chest as well as procalcitonin value. The pro calcitonin value was elevated at 1.25 indicating that this is infectious and CT scan did show changes consistent with atypical pneumonia. Her Covid test is negative and therefore should be placed on vancomycin and Levaquin for the infection. She has had periods where she has been hypoxic on her normal 3 L but after she moves a mucous plug seems to return to baseline. However at this time based on her overall poor health need for intermittent increase in her oxygen demand and the fact she has a high white count with elevated pro calcitonin level we will keep her in the hospital for IV antibiotics. Lab Data Attestation: I reviewed the patient's lab results. Labs: Laboratory Results - last 24 hr 04/17/21 04/17/21 04/17/21 23:20 23:20 23:20 WBC 20.3 H RBC 3.37 L Hgb 10.3 L Hct 33.2 L MCV 98.5 MCH 30.6 MCHC 31.0 L RDW Std Deviation 67.2 H RDW Coeff of Grazyna 18.7 H Plt Count 290 MPV 11.4 Immature Gran % (Auto) 1.700 H Neut % (Auto) 86.0 H Lymph % (Auto) 3.5 L [place] % (Auto) 8.4 Eos % (Auto) 0.1 Baso % (Auto) 0.3 Absolute Neuts (auto) 17.5 H Absolute Lymphs (auto) 0.72 L Nucleated RBC % 0.3 Differential Comment SCANNED Diff Path Review May foll Anisocytosis 1+ Macrocytosis 1+ Sodium 134 L Potassium 5.0 Chloride 93 L Carbon Dioxide 27.0 Anion Gap 14 BUN 40 H Creatinine 4.27 H Estim Creat Clear Calc 13.60 Est GFR (MDRD) Af Amer 14 L Est GFR (MDRD) Non-Af 11 L BUN/Creatinine Ratio 9.4 L Glucose 105 Calcium 9.0 Phosphorus 6.1 H Magnesium 2.7 H Procalcitonin 1.25 H Radiography Diagnostic Testing: Clinical Impression(s) from Imaging Studies Chest X-Ray 04/18/21 00:14 IMPRESSION: Stable cardiomegaly. Possible mild vascular congestion and small bilateral pleural effusions. Electronically Signed: Maldonado Hall MD at 1:54 EST , Service support , Chest CT 04/18/21 03:33 IMPRESSION: Ill-defined patchy airspace opacities are seen more prominent in the lung bases , may represent atypical pneumonia or viral pneumonia (COVID-19 ?). Electronically Signed: Silver Newberry MD at 4:55 EST Tel , Service support , Discharge Plan Dx/Rx/DC Orders Clinical Impression: Pneumonia Disposition Disposition: Acute Care [facility]
--- NOTE | 2021-04-18 06:44 | ED.RN ---
Patient having and nauseated. Dr Garcia gave verbal order for the zofran 4mg IV
[2021-04-18] MEDS: Ondansetron 4 MG/2 ML Vial IV (06:52)
--- NOTE | 2021-04-18 08:33 | PCS.PANDOC ---
PANDEMIC DOCUMENTATION INITIATED: Date: 11/28/2020 Time: 190
[2021-04-18] MEDS: guaiFENesin 1,200 MG Tablet 1200 MG PO ×2 (11:24→20:31)
--- NOTE | 2021-04-18 11:26 | CON.PCM.RE_ITS ---
Assessment & Plan Assessment/Plan (1) ESRD (end stage renal disease) on dialysis: PLAN: The patient usually dialyzes on a MWF schedule at [facility]. The patient was dialyzed for her whole treatment prior to arrival to the hospital yesterday. There is no need for dialysis today. I will arrange for dialysis on her usual schedule tomorrow. (2) Anemia: PLAN: Hemoglobin is 10.3 grams per deciliter today. This is within expected range for hemodialysis patient. We will continue BARBRA with dialysis. (3) HTN (hypertension): PLAN: BP is controlled. Continue current antihypertensives and estimated dry weight on dialysis. We will monitor blood pressure. (4) Pneumonia: QUALIFIERS: Laterality: bilateral Lung location: unspecified part of lung Pneumonia type: due to unspecified organism Qualified Code(s): J18.9 - Pneumonia, unspecified organism PLAN: Antibiotic treatment as per hospital medicine service. (5) Nausea and vomiting: PLAN: This has resolved for now. The patient is on as needed antiemetic. HPI Consult Data Date of Consult: 04/18/21 HPI Narrative Reason for Consultation: ESRD HPI Narrative: The patient is a 61-year-old woman with past history of type 2 diabetes mellitus, atrial fibrillation, hypertension, hyperlipidemia, and GERD. The patient is known to our service with ESRD and prior admissions at hospital. The patient usually dialyzes on Saturday, Saturday and Saturday schedule at [facility]. She is followed there by Dr. Glynn. The patient presented from SNF with a 3-day history of increasing dyspnea both at rest and on exertion, cough with green sputum production, and myalgia. The patient has been diagnosed with pneumonia. The patient denies current chest pain, nausea, vomiting or edema. She is still short of breath, especially with exertion. However, the patient did have nausea and diarrhea prior to admission. The patient was dialyzed yesterday prior to admission. COUNTS INCLUDE 234 BEDS AT THE [facility] Medical History (Updated 04/18/21 @ 11:[address] Liat Parker MD) Anemia Arthritis Atrial fibrillation CAD (coronary artery disease) Cataract Chest pain CHF (congestive heart failure) CHF exacerbation Chronic pain CKD (chronic kidney disease) CKD (chronic kidney disease) stage V requiring chronic dialysis Depression Diabetes Dialysis patient ESRD (end stage renal disease) ESRD (end stage renal disease) on dialysis Former tobacco use Gallbladder sludge GERD (gastroesophageal reflux disease) Hip pain, left HTN (hypertension) HTN (hypertension) Hyperlipidemia Hyponatremia Hypoxia ICD (implantable cardioverter-defibrillator) in place Myocardial infarct On home oxygen therapy Pacemaker PAF (paroxysmal atrial fibrillation) Pancreatitis TIA (transient ischemic attack) Home Medications atorvastatin 40 mg PO QHS 11/25/20 [History Last Taken 11/24/20] cholecalciferol (vitamin D3) 125 mcg PO DAILY 11/25/20 [History Last Taken 11/24/20] furosemide 80 mg PO DAILY 11/25/20 [History Last Taken 11/24/20] hydralazine 50 mg PO TID 11/25/20 [History Last Taken 11/25/20] hydroxyzine HCl 25 mg PO BID 11/25/20 [History Last Taken 11/25/20] metoprolol succinate 50 mg PO BID 11/25/20 [History Last Taken 11/25/20] omeprazole 40 mg PO QHS 11/25/20 [History Last Taken 11/24/20] Insulin Basal Pump (Pt's Own) [Pump, Basal] 1 unit SUBCUT Q24 #0 12/06/20 [Rx Last Taken Unknown] prochlorperazine maleate [Compazine] 10 mg PO TID PRN #20 tab 12/18/20 [Rx Last Taken Unknown] Acidophilus 2 cap PO BID 03/02/21 [History Last Taken Unknown] Eliquis 2.5 mg PO BID 03/02/21 [History Last Taken Unknown] aspirin 81 mg PO DAILY 03/02/21 [History Last Taken Unknown] fluconazole 200 mg PO QHS 03/02/21 [History Last Taken Unknown] promethazine 25 mg PO BID 03/02/21 [History Last Taken Unknown] oxycodone 5 mg PO Q6H PRN 5 Days #20 tab 03/03/21 [Rx Last Taken Unknown] albuterol sulfate 2.5 mg INHALATION Q2H PRN 03/22/21 [History Last Taken Unknown] ascorbic acid (vitamin C) 1,000 mg PO DAILY 04/18/21 [History Last Taken Unknown] doxycycline hyclate 100 mg PO BID 04/18/21 [History Last Taken Unknown] eucalyptus-menthol [Menthol Cough Drops] 3.1 mg MUCOUS MEMBRANE Q2H PRN 04/18/21 [History Last Taken Unknown] nutritional supplements [NovaSource Renal] 240 ml PO DAILY 04/18/21 [History Last Taken Unknown] ondansetron HCl [Zofran] 4 mg PO Q6H PRN 04/18/21 [History Last Taken Unknown] prednisone 40 mg PO DAILY 04/18/21 [History Last Taken 04/17/21] terbinafine HCl 1 applic TOPICAL BID 04/18/21 [History Last Taken Unknown] Allergy/AdvReac Type Severity Reaction Status Date / Time amoxicillin Allergy Hives Verified 04/17/21 23:13 benzonatate Allergy Hives Verified 04/17/21 23:13 [From Tessalon Perles] Cephalosporins Allergy Hives Verified 04/17/21 23:13 clavulanic acid Allergy Hives Verified 04/17/21 23:13 [From Augmentin] lansoprazole [From Prevacid] Allergy Other Verified 04/17/21 23:13 latex Allergy Hives Verified 04/17/21 23:13 meropenem Allergy Hives Verified 04/17/21 23:13 Penicillins Allergy Hives Verified 04/17/21 23:13 silicone AdvReac Hives Verified 04/17/21 23:13 simethicone AdvReac PT UNSURE Verified 04/17/21 23:13 OF REACTION Family History Mother Hypertension Diabetes Heart disease Father Heart disease Hypertension Diabetes Kidney disease Surgical History (Updated 04/18/21 @ 08:31 by Santa Meneses) History of appendectomy History of arteriovenous graft History of heart artery stent History of mitral valve replacement Hx of CABG Social History household members: spouse Smoking Status: Former smoker how long ago did patient quit smoking: Quit 4 years prior, smoked 1 ppd cig tob since teenager. alcohol intake: never substance use type: does not use ROS ROS Narrative 03/26 review of system was done and are otherwise noncontributory. Physical Exam Narrative General: Alert and oriented x3 in no apparent distress. HEENT: Normocephalic, atraumatic. Mucous membranes moist. PERRLA, EOMI. Neck: Supple, no JVD. Heart: Normal S1, S2. No rubs, murmurs, or gallop. Lungs: Clear to auscultation bilaterally. Abdomen: Normal bowel sounds, soft, nontender, no guarding or rebound. Extremity: No edema in the lower extremities. No clubbing or cyanosis. Full passive range of motion. Skin: No rash. Skin is warm and dry. Psychiatric: Normal mood and affect. Lab / Micro Data Result Diagrams: 04/17/21 23:20 04/17/21 23:20 Labs: Laboratory Results - last 24 hr 04/17/21 23:20: WBC 20.3 H, RBC 3.37 L, Hgb 10.3 L, Hct 33.2 L, MCV 98.5, MCH 30.6, MCHC 31.0 L, RDW Std Deviation 67.2 H, RDW Coeff of Grazyna 18.7 H, Plt Count 290, MPV 11.4, Immature Gran % (Auto) 1.700 H, Neut % (Auto) 86.0 H, Lymph % (Auto) 3.5 L, Coleman % (Auto) 8.4, Eos % (Auto) 0.1, Baso % (Auto) 0.3, Absolute Neuts (auto) 17.5 H, Absolute Lymphs (auto) 0.72 L, Nucleated RBC % 0.3, Differential Comment SCANNED, Diff Path Review May foll, Anisocytosis 1+, Ma crocytosis 1+ 04/17/21 23:20: Sodium 134 L, Potassium 5.0, Chloride 93 L, Carbon Dioxide 27.0, Anion Gap 14, BUN 40 H, Creatinine 4.27 H, Estim Creat Clear Calc 13.60, Est GFR (MDRD) Af Amer 14 L, Est GFR (MDRD) Non-Af 11 L, BUN/Creatinine Ratio 9.4 L, Glucose 105, Calcium 9.0, Phosphorus 6.1 H, Magnesium 2.7 H 04/17/21 23:20: Procalcitonin 1.25 H Micro: Microbiology 04/18/21 10:15 Mucosa - Nasopharyngeal Influenza Types A,B Direct FA (GEOVANNA) - Final 04/18/21 03:40 Nasal Secretion SARS-CoV-2 Antigen (Rapid) - Final Radiology Impression Chest X-Ray 04/18/21 00:14 IMPRESSION: Stable cardiomegaly. Possible mild vascular congestion and small bilateral pleural effusions. Electronically Signed: Maldonado Hall MD at 1:54 EST , Service support , Chest CT 04/18/21 03:33 IMPRESSION: Ill-defined patchy airspace opacities are seen more prominent in the lung bases , may represent atypical pneumonia or viral pneumonia (COVID-19 ?). Electronically Signed: Silver Newberry MD at 4:55 EST Tel , Service support ,
[2021-04-18 11:55] LABS: Bedside Glucose 87 mg/dL (70-110)
[2021-04-18 14:22] LABS: Pathologist Review Reviewed
[2021-04-18 15:05] LABS: Bedside Glucose 56 mg/dL (70-110)
[2021-04-18] MEDS: Dextrose 50%-Water 25 GM/50 ML DISP.SYRIN IV (15:16)
[2021-04-18] MEDS: Heparin Injection (Vial) 5,000 UNIT/ML VIAL 5000 UNIT SC ×2 (15:21→20:31)
[2021-04-18] MEDS: Glucerna Shake 120 ML LIQUID PO ×3 (15:24→20:30)
--- NOTE | 2021-04-18 15:26 | NURSING ---
this nurse has encouraged pt to eat all day but has refused. Dexacom alerted pt that her blood sugar was 76, orange juice and jello and cracker with peanut butter on it but pt only drank orange juice. When blood sugar checked after she drank oj, pt blood sugar was 56. Jennifer RN gave her another cup of orange juice in which she drank but then this nurse gave 1/2amp of D50% in her IV.
[2021-04-18 16:40] LABS: Bedside Glucose 156 mg/dL (70-110)
[2021-04-18 16:59] LABS: M R Staph aureus DNA By PCR Negative (Negative); Probe Check PASS; Specimen Processing Control PASS
[2021-04-18] MEDS: 0.9% Normal Saline 1,000 ML 999 ML IV (17:41)
[2021-04-18] MEDS: Calcium Acetate 667 MG Capsule PO (17:42)
--- NOTE | 2021-04-18 18:41 | PCM.PN.BLA ---
Progress Note Notified by nursing staff that she was a little hypotensive. At the time she was not significantly symptomatic however she I did give her a 1 L fluid bolus which did increase her blood pressure to about 90 systolic. We will repeat a 500 cc bolus now as she has systolics in the 70s again and will also start her on midodrine. Discussed the case with the banjo repair person and we both felt that she was probably a little bit dry and he was comfortable with giving her another 500 to 1L of fluid and then will follow up with an evaluation once this is complete.
[2021-04-18] MEDS: Midodrine HCl 5 MG Tablet 10 MG PO (19:51)
[2021-04-18] MEDS: 0.9% Normal Saline 1,000 ML 100 ML IV (22:52)
[2021-04-18 23:01] LABS: Bedside Glucose 179 mg/dL (70-110)
[2021-04-19] VITALS (7 sets, daily range): BP systolic 125–147; BP diastolic 44–77; PULSE 67–78; RESP 16–20; TEMP 36.6–36.8; O2SAT 91–100
[2021-04-19] MEDS: Heparin Injection (Vial) 5,000 UNIT/ML VIAL 5000 UNIT SC (05:07)
[2021-04-19 06:25] LABS: Bedside Glucose 167 mg/dL (70-110)
[2021-04-19 08:04] LABS: Absolute Lymphocyte Count 1.18 X10^3/uL (0.83-4.51); Absolute Neutrophil Count 16.2 X10^3/uL (2.0-7.7); Basophil# 0.06 X10^3/uL; Basophil% 0.3 % (0-1); Eosinophil# 0.14 X10^3/uL; Eosinophils% 0.7 % (0-5); Hematocrit 31.3 % (37-47); Hemoglobin 9.7 g/dL (12.0-15.0); Lymphocyte # 1.18 X10^3/ul (0.83-4.51); Lymphocyte % 6.1 % (19-41); Mean Corpuscular Hgb 30.2 pg (27.0-32.0); Mean Corpuscular Volume 97.5 fL (81-99); Mean Platelet Vol. 11.5 fl (6.2-12.0); Monocyte# 1.18 X10^3/uL; Monocyte% 6.1 % (0-10); NRBC Flagged by Analyzer 1.1 % (0-5); Neutrophil # 16.19 X10^3/uL (2.7-7.7); Neutrophil % 83.9 % (47-70); Platelet Count 248 K/mm3 (150-450); RBC Distribution Width CV 18.2 % (11.6-14.6); RBC Distribution Width SD 64.3 fl (35.1-43.9); Red Blood Count 3.21 M/mm3 (4.2-5.4); White Blood Count 19.3 K/mm3 (4.4-11.0)
[2021-04-19 08:16] LABS: Anion Gap 14 (5-15); BUN 58 mg/dL (7-18); BUN/Creat Ratio 11.9 RATIO (10-20); Calcium,Total 8.5 mg/dL (8.5-10.1); Chloride 97 mmol/L (98-107); Creatinine, Serum 4.89 mg/dL (0.55-1.02); EST Glomerular Filtration Rate 10 mL/min (>60); Est Glom Filt Rate - Afr Amer 12 mL/min (>60); Estimated Creatinine Clearance 12.31 ml/min; Glucose 160 mg/dL (74-106); Potassium 5.1 mmol/L (3.5-5.1); Sodium Level 133 mmol/L (136-145)
[2021-04-19] MEDS: Ondansetron 4 MG/2 ML Vial IV (08:21)
[2021-04-19] MEDS: 0.9% Saline Lock 10 ML Syringe IV (08:21)
[2021-04-19] MEDS: Sodium Chloride 0.65% 1 SPRAY SPRAY.BTL NASAL (09:21)
--- NOTE | 2021-04-19 11:31 | PCM.PN.HOSP ---
Subjective Subjective Feels much better today but still appears dehydrated but states that the fluids that she received yesterday helped Objective Data Objective Data Vital Signs: Vital Signs Temp Pulse Resp BP Pulse Ox 98.0 F 70 20 H 133/77 H 100 04/19/21 08:30 04/19/21 08:30 04/19/21 08:30 04/19/21 08:30 04/19/21 08:30 Oxygen Flow Rate (L/min) 3 Oxygen Delivery Method Nasal Cannula Weight: 172 lb 14.4 oz Body Mass Index (BMI) 25.5 Intake & Output: Intake and Output for Last 24 Hours 04/18/21 04/19/21 04/20/21 03:59 03:59 03:59 Intake Total 2457 / 2457 1200 / 1200 Output Total 0 / 0 Balance 2457 / 2457 1200 / 1200 Medical Nutrition Assessment Dietitian: Malnutrition Criteria Met Start: 04/18/21 13:12 Freq: Status: Active Protocol: Document 04/18/21 13:13 SHARAD (Rec: 04/18/21 13:13 SHARAD [id number]) Nutrition Malnutrition Evidence of Malnutrition Exists Yes Malnutrition (severe): Acute Illness/Injury Evidenced By Suboptimal Energy Intake ( Severe),Weight Loss (Severe) Clinical Problem Acute Disease or Injury Related Malnutrition Etiology related to acute illness and inability to consume adequate nutrition to meet pt est nutritional needs Signs/Symptoms as evidenced by <50% po intake and 2.4 kg wt loss x 5 days Status Active Problem Recommendation Dietitian Recommendations/Changes Will change diet to cho control / renal - no protein restriction d/t increased nutritional needs r/t dialysis tx Will provide 4 oz nepro cho steady w/ meals for increased nutrition if consumed. Lab / Micro Data Result Diagrams: 04/19/21 07:28 04/19/21 07:28 Labs: Laboratory Results - last 24 hr 04/17/21 23:20: Diff Path Review Reviewed 04/18/21 11:21: POC Glucose 87 04/18/21 11:45: MRSA (PCR) Negative 04/18/21 15:00: POC Glucose 56 L 04/18/21 16:33: POC Glucose 156 H 04/18/21 22:55: POC Glucose 179 H 04/19/21 06:20: POC Glucose 167 H 04/19/21 07:28: WBC 19.3 H, RBC 3.21 L, Hgb 9.7 L, Hct 31.3 L, MCV 97.5, MCH 30.2, MCHC 31.0 L, RDW Std Deviation 64.3 H, RDW Coeff of Grazyna 18.2 H, Plt Count 248, MPV 11.5, Immature Gran % (Auto) 2.900 H, Neut % (Auto) 83.9 H, Lymph % (Auto) 6.1 L, [place] % (Auto) 6.1, Eos % (Auto) 0.7, Baso % (Auto) 0.3, Absolute Neuts (auto) 16.2 H, Absolute Lymphs (auto) 1.18, Nucleated RBC % 1.1 04/19/21 07:28: Sodium 133 L, Potassium 5.1, Chloride 97 L, Carbon Dioxide 22.0, Anion Gap 14, BUN 58 H, Creatinine 4.89 H, Estim Creat Clear Calc 12.31, Est GFR (MDRD) Af Amer 12 L, Est GFR (MDRD) Non-Af 10 L, BUN/Creatinine Ratio 11.9, Glucose 160 H, Calcium 8.5 Micro: Microbiology 04/18/21 21:15 Sputum, Expectorated/Coughed Gram Stain - Final 04/18/21 10:15 Mucosa - Nasopharyngeal Influenza Types A,B Direct FA (GEOVANNA) - Final 04/18/21 03:40 Nasal Secretion SARS-CoV-2 Antigen (Rapid) - Final Physical Exam Const alert, oriented x3 and no apparent distress General Appearance: cooperative HEENT normocephalic Mouth: dry mucous membranes Eyes PERRL, EOMs intact bilaterally and conjunctivae normal Neck supple and no JVD Resp normal respiratory effort, no retractions and no use of accessory muscles Auscultation: crackles and diminished lung sounds; Negative for rales, rhonchi or wheezes Cardio regular rate, regular rhythm, S1 normal heart sound, S2 normal heart sound and no murmurs GI soft to palpation, non-tender and non-distended; Negative for hepatosplenomegaly Extremity no clubbing, cyanosis or edema Skin no rashes or lesions noted Neuro no focal motor deficits and no sensory deficits noted Psych affect normal Appearance: appropriate Assessment & Plan Assessment/Plan (1) Pneumonia: QUALIFIERS: Pneumonia type: due to unspecified organism Laterality: bilateral Lung location: unspecified part of lung Qualified Code(s): J18.9 - Pneumonia, unspecified organism PLAN: 1. Septic shock secondary to community-acquired pneumonia ?Sputum culture with gram-positive organisms, speciation is pending ?Continue with Levaquin as she has hives with penicillin and cephalosporins ?Dosing has to be every 48 secondary to her renal function issues ?MRSA swab is negative so vancomycin was discontinued ?She has not been eating or drinking well prior to her admission here therefore she received 1500 cc of boluses yesterday evening and then received 1 L of IV fluids running overnight ?Did start her on midodrine to help assist with being able to undergo dialysis today and may need to be run even but will leave that up to nephrology 2. DM2 with end-stage renal disease on dialysis ?Okay to need with insulin and monitor ?Appreciate nephrology's assistance with dialysis ?Check a CA chest, will make adjustments as necessary, her insulin pump was discontinued secondary to hypoglycemia with poor oral intake 3. HTN ?Blood pressure was low so she was given IV fluids and midodrine ?Hold her blood pressure medications ?We will continue to monitor and make adjustments as necessary 4. GERD ?Stable ?Continue with PPI DVT: Heparin Charges/Coding Visit Charges Inpatient E&M: 13779 Subs Hosp L2
[2021-04-19] MEDS: Glucerna Shake 120 ML LIQUID PO (11:50)
[2021-04-19] MEDS: guaiFENesin 1,200 MG Tablet 1200 MG PO ×2 (11:52→22:04)
[2021-04-19] MEDS: Calcium Acetate 667 MG Capsule PO (11:52)
[2021-04-19] MEDS: Midodrine HCl 5 MG Tablet 10 MG PO (11:53)
[2021-04-19 12:05] LABS: Bedside Glucose 221 mg/dL (70-110)
--- NOTE | 2021-04-19 14:35 | CASEMGMT ---
Social Work Pt is here from [place]. SW called [facility], pt is there short term for rehab. SW spoke w/pt in room, she states has been there a few weeks, plan is for her to return to [place] when ready. Updates faxed. JINA will continue to follow. WILDA Villalobos
--- NOTE | 2021-04-19 15:41 | PCM.PN.REN ---
Subjective Subjective Following for ESRD. The patient denies chest pain, nausea, or diarrhea. Shortness of breath is not any worse than yesterday. The patient is still coughing, but it has mainly been nonproductive. The patient had low BP last night which responded to IV fluid boluses. Objective Data Objective Data Vital Signs: Vital Signs Temp Pulse Resp BP Pulse Ox 98.2 F 74 16 125/44 H 97 04/19/21 14:05 04/19/21 14:05 04/19/21 14:05 04/19/21 14:05 04/19/21 14:05 Oxygen Flow Rate (L/min) 5 Oxygen Delivery Method Nasal Cannula Weight: 78.426 kg Body Mass Index (BMI) 25.5 Intake & Output: Intake and Output for Last 24 Hours 04/17/21 04/18/21 04/19/21 23:59 23:59 23:59 Intake Total 2157 / 2457 1620 / 1620 Output Total 0 / 0 Balance 2157 / 2457 1620 / 1620 Medical Nutrition Assessment Dietitian: Malnutrition Criteria Met Start: 04/18/21 13:12 Freq: Status: Active Protocol: Document 04/18/21 13:13 SLA (Rec: 04/18/21 13:13 SLA [id number]) Nutrition Malnutrition Evidence of Malnutrition Exists Yes Malnutrition (severe): Acute Illness/Injury Evidenced By Suboptimal Energy Intake ( Severe),Weight Loss (Severe) Clinical Problem Acute Disease or Injury Related Malnutrition Etiology related to acute illness and inability to consume adequate nutrition to meet pt est nutritional needs Signs/Symptoms as evidenced by <50% po intake and 2.4 kg wt loss x 5 days Status Active Problem Recommendation Dietitian Recommendations/Changes Will change diet to cho control / renal - no protein restriction d/t increased nutritional needs r/t dialysis tx Will provide 4 oz nepro cho steady w/ meals for increased nutrition if consumed. Lab / Micro Data Result Diagrams: 04/19/21 07:28 04/19/21 07:28 Labs: Laboratory Results - last 24 hr 04/18/21 11:45: MRSA (PCR) Negative 04/18/21 16:33: POC Glucose 156 H 04/18/21 22:55: POC Glucose 179 H 04/19/21 06:20: POC Glucose 167 H 04/19/21 07:28: WBC 19.3 H, RBC 3.21 L, Hgb 9.7 L, Hct 31.3 L, MCV 97.5, MCH 30.2, MCHC 31.0 L, RDW Std Deviation 64.3 H, RDW Coeff of Garzyna 18.2 H, Plt Count 248, MPV 11.5, Immature Gran % (Auto) 2.900 H, Neut % (Auto) 83.9 H, Lymph % (Auto) 6.1 L, [place] % (Auto) 6.1, Eos % (Auto) 0.7, Baso % (Auto) 0.3, Absolute Neuts (auto) 16.2 H, Absolute Lymphs (auto) 1.18, Nucleated RBC % 1.1 04/19/21 07:28: Sodium 133 L, Potassium 5.1, Chloride 97 L, Carbon Dioxide 22.0, Anion Gap 14, BUN 58 H, Creatinine 4.89 H, Estim Creat Clear Calc 12.31, Est GFR (MDRD) Af Amer 12 L, Est GFR (MDRD) Non-Af 10 L, BUN/Creatinine Ratio 11.9, Glucose 160 H, Calcium 8.5 04/19/21 12:00: POC Glucose 221 H Micro: Microbiology 04/18/21 21:15 Sputum, Expectorated/Coughed Gram Stain - Final 04/18/21 10:15 Mucosa - Nasopharyngeal Influenza Types A,B Direct FA (GEOVANNA) - Final 04/18/21 03:40 Nasal Secretion SARS-CoV-2 Antigen (Rapid) - Final Physical Exam Narrative General: Alert and oriented x3 in no apparent distress. HEENT: Normocephalic, atraumatic. Mucous membranes moist. Heart: Normal S1, S2. No rubs, murmurs, or gallop. Lungs: Rhonchi bilaterally. Abdomen: Normal bowel sounds, soft, nontender, no guarding or rebound. Extremity: No edema in the lower extremities. No clubbing or cyanosis. Assessment & Plan Assessment/Plan (1) ESRD (end stage renal disease) on dialysis: PLAN: The patient usually dialyzes on a MWF schedule at [facility]. The patient was dialyzed for her whole treatment prior to arrival to the hospital on 04/17/2021. She will be dialyzed on her usual schedule today. (2) Anemia: PLAN: Hemoglobin is 9.7 g/dL today. We will continue BARBRA with dialysis. (3) HTN (hypertension): PLAN: BP is controlled. Continue current antihypertensives and estimated dry weight on dialysis. We will monitor blood pressure. (4) Pneumonia: QUALIFIERS: Pneumonia type: due to unspecified organism Laterality: bilateral Lung location: unspecified part of lung Qualified Code(s): J18.9 - Pneumonia, unspecified organism PLAN: Antibiotic treatment as per hospital medicine service. (5) Nausea and vomiting: PLAN: This has resolved for now. The patient is on as needed antiemetic.
--- NOTE | 2021-04-19 16:23 | NURSING ---
This nurse is aware of Vitals that were taken at 1400 by Iftikhar Melendrez RN.
[2021-04-19 17:25] LABS: Bedside Glucose 224 mg/dL (70-110)
[2021-04-19] MEDS: Pantoprazole Sodium 40 MG Tablet PO (22:04)
[2021-04-19] MEDS: APIXABAN 2.5 MG TABLET PO (22:04)
[2021-04-19] MEDS: Atorvastatin Calcium 40 MG Tablet PO (22:04)
[2021-04-19] MEDS: oxyCODONE 5 MG Tablet PO (22:12)
[2021-04-19 22:20] LABS: Bedside Glucose 175 mg/dL (70-110)
[2021-04-20] VITALS (7 sets, daily range): BP systolic 130–143; BP diastolic 52–66; PULSE 84–88; RESP 16–20; TEMP 36.5–37; O2SAT 94–96
[2021-04-20 06:15] LABS: Bedside Glucose 231 mg/dL (70-110)
[2021-04-20 07:11] LABS: Absolute Lymphocyte Count 0.93 X10^3/uL (0.83-4.51); Absolute Neutrophil Count 15.1 X10^3/uL (2.0-7.7); Basophil# 0.06 X10^3/uL; Basophil% 0.3 % (0-1); Eosinophil# 0.17 X10^3/uL; Hematocrit 30.1 % (37-47); Hemoglobin 9.7 g/dL (12.0-15.0); Lymphocyte # 0.93 X10^3/ul (0.83-4.51); Lymphocyte % 5.2 % (19-41); Mean Corp Hgb Conc 32.2 g/dL (32-36); Mean Corpuscular Hgb 30.6 pg (27.0-32.0); Mean Platelet Vol. 11.3 fl (6.2-12.0); Monocyte# 1.21 X10^3/uL; Monocyte% 6.8 % (0-10); NRBC Flagged by Analyzer 1.9 % (0-5); Neutrophil % 84.6 % (47-70); Platelet Count 218 K/mm3 (150-450); RBC Distribution Width CV 18.4 % (11.6-14.6); Red Blood Count 3.17 M/mm3 (4.2-5.4); White Blood Count 17.8 K/mm3 (4.4-11.0)
[2021-04-20 07:36] LABS: Anion Gap 12 (5-15); BUN 41 mg/dL (7-18); BUN/Creat Ratio 10.3 RATIO (10-20); Calcium,Total 8.6 mg/dL (8.5-10.1); Chloride 97 mmol/L (98-107); Creatinine, Serum 3.97 mg/dL (0.55-1.02); EST Glomerular Filtration Rate 12 mL/min (>60); Est Glom Filt Rate - Afr Amer 15 mL/min (>60); Estimated Creatinine Clearance 15.16 ml/min; Glucose 233 mg/dL (74-106); Potassium 4.1 mmol/L (3.5-5.1); Sodium Level 136 mmol/L (136-145)
[2021-04-20] MEDS: Aspirin E.C. 81 MG Tablet PO (08:00)
[2021-04-20] MEDS: guaiFENesin 1,200 MG Tablet 1200 MG PO ×2 (08:00→21:11)
[2021-04-20] MEDS: Midodrine HCl 5 MG Tablet 10 MG PO ×2 (08:01→12:17)
[2021-04-20] MEDS: Calcium Acetate 667 MG Capsule PO ×3 (08:01→17:29)
[2021-04-20] MEDS: APIXABAN 2.5 MG TABLET PO ×2 (08:01→21:12)
[2021-04-20] MEDS: Glucerna Shake 120 ML LIQUID PO ×2 (08:04→17:30)
--- NOTE | 2021-04-20 08:59 | CASEMGMT ---
Addendum entered by Jennifer Vallecillo 04/20/21 11:31: Social Work Pt can return to [place] whenever ready, we do not need to wait for precert as per [facility] at [place]. SW did inform [facility] physician states pt will be ready in the next 1-2 days. WILDA Villalobos Original Note: Social Work SW called [facility] at [place], message left inquiring if a precert will be needed in order for pt to return when ready for discharge. WILDA Villalobos
[2021-04-20] MEDS: levoFLOXacin IV 500 MG/100 ML BAG 100 MG IV (10:43)
--- NOTE | 2021-04-20 11:46 | PCM.PN.HOSP ---
Subjective Subjective Feels better than she did when she first came in. She was run even yesterday if necessary can give her some IV fluids. She does state that she wears oxygen at the [facility] at around 3 L. We will continue to encourage p.o. intake Objective Data Objective Data Vital Signs: Vital Signs Temp Pulse Resp BP Pulse Ox 98.4 F 86 18 133/52 H 94 04/20/21 10:06 04/20/21 10:06 04/20/21 10:06 04/20/21 10:06 04/20/21 10:06 Oxygen Flow Rate (L/min) 5 Oxygen Delivery Method Nasal Cannula Weight: 172 lb 14.4 oz Body Mass Index (BMI) 25.5 Intake & Output: Intake and Output for Last 24 Hours 04/19/21 04/20/21 04/21/21 03:59 03:59 03:59 Intake Total 2457 / 2457 1740 / 1740 300 / 300 Output Total 0 / 0 Balance 2457 / 2457 1740 / 1740 300 / 300 Medical Nutrition Assessment Dietitian: Malnutrition Criteria Met Start: 04/18/21 13:12 Freq: Status: Active Protocol: Document 04/18/21 13:13 SHARAD (Rec: 04/18/21 13:13 [facility] [id number]) Nutrition Malnutrition Evidence of Malnutrition Exists Yes Malnutrition (severe): Acute Illness/Injury Evidenced By Suboptimal Energy Intake ( Severe),Weight Loss (Severe) Clinical Problem Acute Disease or Injury Related Malnutrition Etiology related to acute illness and inability to consume adequate nutrition to meet pt est nutritional needs Signs/Symptoms as evidenced by <50% po intake and 2.4 kg wt loss x 5 days Status Active Problem Recommendation Dietitian Recommendations/Changes Will change diet to cho control / renal - no protein restriction d/t increased nutritional needs r/t dialysis tx Will provide 4 oz nepro cho steady w/ meals for increased nutrition if consumed. Lab / Micro Data Result Diagrams: 04/20/21 06:50 04/20/21 06:50 Labs: Laboratory Results - last 24 hr 04/19/21 12:00: POC Glucose 221 H 04/19/21 17:16: POC Glucose 224 H 04/19/21 22:15: POC Glucose 175 H 04/20/21 06:11: POC Glucose 231 H 04/20/21 06:50: WBC 17.8 H, RBC 3.17 L, Hgb 9.7 L, Hct 30.1 L, MCV 95.0, MCH 30.6, MCHC 32.2, RDW Std Deviation 62.0 H, RDW Coeff of Grazyna 18.4 H, Plt Count 218, MPV 11.3, Immature Gran % (Auto) 2.100 H, Neut % (Auto) 84.6 H, Lymph % (Auto) 5.2 L, [place] % (Auto) 6.8, Eos % (Auto) 1.0, Baso % (Auto) 0.3, Absolute Neuts (auto) 15.1 H, Absolute Lymphs (auto) 0.93, Nucleated RBC % 1.9 04/20/21 06:50: Sodium 136, Potassium 4.1, Chloride 97 L, Carbon Dioxide 27.0, Anion Gap 12, BUN 41 H, Creatinine 3.97 H, Estim Creat Clear Calc 15.16, Est GFR (MDRD) Af Amer 15 L, Est GFR (MDRD) Non-Af 12 L, BUN/Creatinine Ratio 10.3, Glucose 233 H, Calcium 8.6 Micro: Microbiology 04/18/21 21:15 Sputum, Expectorated/Coughed Gram Stain - Final 04/18/21 21:15 Sputum, Expectorated/Coughed Respiratory Culture - Preliminary Appears to be normal respiratory goldie. Further studies to follow. 04/18/21 05:30 Blood Culture (Wb) - Anticubital Right Blood Culture - Preliminary No growth in 48 hours. 04/18/21 05:40 Blood Culture (Wb) - Anticubital Left Blood Culture - Preliminary No growth in 48 hours. 04/18/21 10:15 Mucosa - Nasopharyngeal Influenza Types A,B Direct FA (GEOVANNA) - Final 04/18/21 03:40 Nasal Secretion SARS-CoV-2 Antigen (Rapid) - Final Physical Exam Narrative Const alert, oriented x3 and no apparent distress General Appearance: cooperative HEENT normocephalic Mouth: dry mucous membranes Eyes PERRL, EOMs intact bilaterally and conjunctivae normal Neck supple and no JVD Resp normal respiratory effort, no retractions and no use of accessory muscles Auscultation: crackles greater on the left base than right base and diminished lung sounds; Negative for rales, rhonchi or wheezes Cardio regular rate, regular rhythm, S1 normal heart sound, S2 normal heart sound and no murmurs GI soft to palpation, non-tender and non-distended; Negative for hepatosplenomegaly Extremity no clubbing, cyanosis or edema Skin no rashes or lesions noted Neuro no focal motor deficits and no sensory deficits noted Psych affect normal Appearance: appropriate Assessment & Plan Assessment/Plan (1) Pneumonia: QUALIFIERS: Pneumonia type: due to unspecified organism Laterality: bilateral Lung location: unspecified part of lung Qualified Code(s): J18.9 - Pneumonia, unspecified organism PLAN: 1. Septic shock secondary to community-acquired pneumonia ?Sputum culture with gram-positive organisms, speciation is pending ?Continue with Levaquin as she has hives with penicillin and cephalosporins ?Dosing has to be every 48 secondary to her renal function issues ?MRSA swab is negative so vancomycin was discontinued ? Tolerated IV fluid resuscitation, appreciate nephrology's assistance if necessary can give her some more IV fluids though will encourage p.o. intake ?Did start her on midodrine to help assist with being able to undergo dialysis 2. DM2 with end-stage renal disease on dialysis ? Continue with sliding scale insulin and monitor ?Appreciate nephrology's assistance with dialysis ? Accu-Cheks AC at bedtime, will make adjustments as necessary, her insulin pump was discontinued secondary to hypoglycemia with poor oral intake 3. HTN ?Blood pressure was low so she was given IV fluids and midodrine ?Hold her blood pressure medications ?We will continue to monitor and make adjustments as necessary 4. GERD ?Stable ?Continue with PPI DVT: Heparin Charges/Coding Visit Charges Inpatient E&M: 55519 Subs Hosp L2
[2021-04-20 12:01] LABS: Bedside Glucose 309 mg/dL (70-110)
--- NOTE | 2021-04-20 12:15 | PN.RENAL_ITS ---
Subjective Subjective Following for ESRD. Still coughing, but she feels overall better. There is no shortness of breath at rest. She denies nausea, vomiting or diarrhea. Objective Data Objective Data Vital Signs: Vital Signs Temp Pulse Resp BP Pulse Ox 98.4 F 86 18 133/52 H 94 04/20/21 10:06 04/20/21 10:06 04/20/21 10:06 04/20/21 10:06 04/20/21 10:06 Oxygen Flow Rate (L/min) 5 Oxygen Delivery Method Nasal Cannula Weight: 78.426 kg Body Mass Index (BMI) 25.5 Intake & Output: Intake and Output for Last 24 Hours 04/18/21 04/19/21 04/20/21 23:59 23:59 23:59 Intake Total 2156 / 2456 174 / 2039 700 / 700 Output Total 0 / 0 Balance 2156 / 2456 1739 / 2039 700 / 700 Medical Nutrition Assessment Dietitian: Malnutrition Criteria Met Start: 04/18/21 13:12 Freq: Status: Active Protocol: Document 04/18/21 13:13 SHARAD (Rec: 04/18/21 13:13 SHARAD [id number]) Nutrition Malnutrition Evidence of Malnutrition Exists Yes Malnutrition (severe): Acute Illness/Injury Evidenced By Suboptimal Energy Intake ( Severe),Weight Loss (Severe) Clinical Problem Acute Disease or Injury Related Malnutrition Etiology related to acute illness and inability to consume adequate nutrition to meet pt est nutritional needs Signs/Symptoms as evidenced by <50% po intake and 2.4 kg wt loss x 5 days Status Active Problem Recommendation Dietitian Recommendations/Changes Will change diet to cho control / renal - no protein restriction d/t increased nutritional needs r/t dialysis tx Will provide 4 oz nepro cho steady w/ meals for increased nutrition if consumed. Lab / Micro Data Result Diagrams: 04/20/21 06:50 04/20/21 06:50 Labs: Laboratory Results - last 24 hr 04/19/21 17:16: POC Glucose 224 H 04/19/21 22:15: POC Glucose 175 H 04/20/21 06:11: POC Glucose 231 H 04/20/21 06:50: WBC 17.8 H, RBC 3.17 L, Hgb 9.7 L, Hct 30.1 L, MCV 95.0, MCH 30.6, MCHC 32.2, RDW Std Deviation 62.0 H, RDW Coeff of Grazyna 18.4 H, Plt Count 218, MPV 11.3, Immature Gran % (Auto) 2.100 H, Neut % (Auto) 84.6 H, Lymph % (Auto) 5.2 L, [place] % (Auto) 6.8, Eos % (Auto) 1.0, Baso % (Auto) 0.3, Absolute Neuts (auto) 15.1 H, Absolute Lymphs (auto) 0.93, Nucleated RBC % 1.9 04/20/21 06:50: Sodium 136, Potassium 4.1, Chloride 97 L, Carbon Dioxide 27.0, Anion Gap 12, BUN 41 H, Creatinine 3.97 H, Estim Creat Clear Calc 15.16, Est GFR (MDRD) Af Amer 15 L, Est GFR (MDRD) Non-Af 12 L, BUN/Creatinine Ratio 10.3, Glucose 233 H, Calcium 8.6 04/20/21 11:54: POC Glucose 309 H Micro: Microbiology 04/18/21 21:15 Sputum, Expectorated/Coughed Gram Stain - Final 04/18/21 21:15 Sputum, Expectorated/Coughed Respiratory Culture - Preliminary Appears to be normal respiratory goldie. Further studies to follow. 04/18/21 05:30 Blood Culture (Wb) - Anticubital Right Blood Culture - Preliminary No growth in 48 hours. 04/18/21 05:40 Blood Culture (Wb) - Anticubital Left Blood Culture - Preliminary No growth in 48 hours. 04/18/21 10:15 Mucosa - Nasopharyngeal Influenza Types A,B Direct FA (GEOVANNA) - Final 04/18/21 03:40 Nasal Secretion SARS-CoV-2 Antigen (Rapid) - Final Physical Exam Narrative General: Alert and oriented x3 in no apparent distress. HEENT: Normocephalic, atraumatic. Mucous membranes moist. Heart: Normal S1, S2. No rubs, murmurs, or gallop. Lungs: Rhonchi bilaterally. Abdomen: Normal bowel sounds, soft, nontender, no guarding or rebound. Extremity: No edema in the lower extremities. No clubbing or cyanosis. Assessment & Plan Assessment/Plan (1) ESRD (end stage renal disease) on dialysis: PLAN: -The patient usually dialyzes on a MWF schedule at [facility]. -We will keep the patient on MWF dialysis schedule here. -She tolerated dialysis well yesterday without significant drop in blood pressure. -No need for dialysis today. Next dialysis will be planned as per usual schedule tomorrow. (2) Anemia: PLAN: -Hemoglobin is 9.7 g/dL yesterday. -We will continue BARBRA with dialysis. Goal hemoglobin for dialysis patient is between 10 to 11 g/dL. (3) HTN (hypertension): PLAN: -The patient has a history of hypertension. BP was low overnight on 04/18/2021. She did respond to IV fluid bolus. -BP is currently controlled on midodrine and off of antihypertensives. -Continue to monitor BP. (4) Pneumonia: QUALIFIERS: Pneumonia type: due to unspecified organism Laterality: bilateral Lung location: unspecified part of lung Qualified Code(s): J18.9 - Pneumonia, unspecified organism PLAN: Antibiotic treatment as per hospital medicine service.
[2021-04-20] MEDS: Insulin Lispro 100 UNIT/ML INSULN.PEN SC ×3 (12:22→21:12)
[2021-04-20 16:35] LABS: Bedside Glucose 321 mg/dL (70-110)
[2021-04-20] MEDS: 0.9% Saline Lock 10 ML Syringe IV (21:03)
[2021-04-20] MEDS: Atorvastatin Calcium 40 MG Tablet PO (21:11)
[2021-04-20] MEDS: Pantoprazole Sodium 40 MG Tablet PO (21:12)
[2021-04-20] MEDS: MELATONIN 3 MG TABLET PO (21:14)
[2021-04-20] MEDS: oxyCODONE 5 MG Tablet PO (21:14)
[2021-04-20 21:25] LABS: Bedside Glucose 308 mg/dL (70-110)
[2021-04-21 06:00] VITALS: BP 121/108; PULSE 85; RESP 20; TEMP 36.6; O2SAT 93
[2021-04-21] MEDS: Insulin Lispro 100 UNIT/ML INSULN.PEN SC ×4 (06:17→21:30)
[2021-04-21 06:24] LABS: Absolute Lymphocyte Count 1.25 X10^3/uL (0.83-4.51); Absolute Neutrophil Count 13.4 X10^3/uL (2.0-7.7); Basophil% 0.6 % (0-1); Eosinophils% 1.8 % (0-5); Hematocrit 30.8 % (37-47); Hemoglobin 10.2 g/dL (12.0-15.0); Lymphocyte # 1.25 X10^3/ul (0.83-4.51); Lymphocyte % 7.4 % (19-41); Mean Corp Hgb Conc 33.1 g/dL (32-36); Mean Corpuscular Hgb 30.1 pg (27.0-32.0); Mean Corpuscular Volume 90.9 fL (81-99); Monocyte% 7.7 % (0-10); NRBC Flagged by Analyzer 1.4 % (0-5); Neutrophil # 13.36 X10^3/uL (2.7-7.7); Neutrophil % 78.8 % (47-70); Platelet Count 186 K/mm3 (150-450); RBC Distribution Width CV 17.6 % (11.6-14.6); RBC Distribution Width SD 56.4 fl (35.1-43.9); Red Blood Count 3.39 M/mm3 (4.2-5.4); White Blood Count 16.9 K/mm3 (4.4-11.0)
[2021-04-21 06:36] LABS: Bedside Glucose 237 mg/dL (70-110)
[2021-04-21 06:38] LABS: Anion Gap 9 (5-15); BUN 54 mg/dL (7-18); BUN/Creat Ratio 10.6 RATIO (10-20); Calcium,Total 9.5 mg/dL (8.5-10.1); Chloride 96 mmol/L (98-107); Creatinine, Serum 5.11 mg/dL (0.55-1.02); EST Glomerular Filtration Rate 9 mL/min (>60); Est Glom Filt Rate - Afr Amer 11 mL/min (>60); Estimated Creatinine Clearance 11.78 ml/min; Glucose 252 mg/dL (74-106); Potassium 4.2 mmol/L (3.5-5.1); Sodium Level 133 mmol/L (136-145)
[2021-04-21 09:26] VITALS: O2SAT 93
[2021-04-21 10:06] VITALS: BP 121/55; PULSE 85; RESP 20; TEMP 36.6; O2SAT 95
--- NOTE | 2021-04-21 10:58 | CASEMGMT ---
Social Work Pt is not yet ready for discharge. SW called [facility], let [facility] know. Updates faxed. Green sheet on chart in anticipation of weekend discharge, precert not needed. Plan: Return to [facility], convalescent stay, skilled level of care. WILDA Villalobos
--- NOTE | 2021-04-21 11:38 | PCM.PN.HOSP ---
Subjective Subjective Feels a little bit better every day. Still has a wet cough, undergoing dialysis today Objective Data Objective Data Vital Signs: Vital Signs Temp Pulse Resp BP Pulse Ox 97.8 F 85 20 H 121/108 H 93 04/21/21 06:00 04/21/21 06:00 04/21/21 06:00 04/21/21 06:00 04/21/21 09:26 Oxygen Flow Rate (L/min) 5 Oxygen Delivery Method Nasal Cannula Weight: 172 lb 14.4 oz Body Mass Index (BMI) 25.5 Intake & Output: Intake and Output for Last 24 Hours 04/20/21 04/21/21 04/22/21 03:59 03:59 03:59 Intake Total 1740 / 1740 1010 / 1010 Balance 1740 / 1740 1010 / 1010 Medical Nutrition Assessment Dietitian: Malnutrition Criteria Met Start: 04/18/21 13:12 Freq: Status: Active Protocol: Document 04/18/21 13:13 SHARAD (Rec: 04/18/21 13:13 SHARAD [id number]) Nutrition Malnutrition Evidence of Malnutrition Exists Yes Malnutrition (severe): Acute Illness/Injury Evidenced By Suboptimal Energy Intake ( Severe),Weight Loss (Severe) Clinical Problem Acute Disease or Injury Related Malnutrition Etiology related to acute illness and inability to consume adequate nutrition to meet pt est nutritional needs Signs/Symptoms as evidenced by <50% po intake and 2.4 kg wt loss x 5 days Status Active Problem Recommendation Dietitian Recommendations/Changes Will change diet to cho control / renal - no protein restriction d/t increased nutritional needs r/t dialysis tx Will provide 4 oz nepro cho steady w/ meals for increased nutrition if consumed. Lab / Micro Data Result Diagrams: 04/21/21 06:10 04/21/21 06:10 Labs: Laboratory Results - last 24 hr 04/20/21 11:54: POC Glucose 309 H 04/20/21 16:30: POC Glucose 321 H 04/20/21 21:10: POC Glucose 308 H 04/21/21 06:10: WBC 16.9 H, RBC 3.39 L, Hgb 10.2 L, Hct 30.8 L, MCV 90.9, MCH 30.1, MCHC 33.1, RDW Std Deviation 56.4 H, RDW Coeff of Grazyna 17.6 H, Plt Count 186, MPV 11.0, Immature Gran % (Auto) 3.700 H, Neut % (Auto) 78.8 H, Lymph % (Auto) 7.4 L, [place] % (Auto) 7.7, Eos % (Auto) 1.8, Baso % (Auto) 0.6, Absolute Neuts (auto) 13.4 H, Absolute Lymphs (auto) 1.25, Nucleated RBC % 1.4 04/21/21 06:10: Sodium 133 L, Potassium 4.2, Chloride 96 L, Carbon Dioxide 28.0, Anion Gap 9, BUN 54 H, Creatinine 5.11 H, Estim Creat Clear Calc 11.78, Est GFR (MDRD) Af Amer 11 L, Est GFR (MDRD) Non-Af 9 L, BUN/Creatinine Ratio 10.6, Glucose 252 H, Calcium 9.5 04/21/21 06:15: POC Glucose 237 H Micro: Microbiology 04/18/21 21:15 Sputum, Expectorated/Coughed Gram Stain - Final 04/18/21 21:15 Sputum, Expectorated/Coughed Respiratory Culture - Final 04/18/21 05:30 Blood Culture (Wb) - Anticubital Right Blood Culture - Preliminary No growth in 48 hours. 04/18/21 05:40 Blood Culture (Wb) - Anticubital Left Blood Culture - Preliminary No growth in 48 hours. 04/18/21 10:15 Mucosa - Nasopharyngeal Influenza Types A,B Direct FA (GEOVANNA) - Final 04/18/21 03:40 Nasal Secretion SARS-CoV-2 Antigen (Rapid) - Final Physical Exam Narrative Const alert, oriented x3 and no apparent distress General Appearance: cooperative HEENT normocephalic Mouth: dry mucous membranes Eyes PERRL, EOMs intact bilaterally and conjunctivae normal Neck supple and no JVD Resp normal respiratory effort, no retractions and no use of accessory muscles Auscultation: crackles greater on the left base than right base and diminished lung sounds; Negative for rales, rhonchi or wheezes Cardio regular rate, regular rhythm, S1 normal heart sound, S2 normal heart sound and no murmurs GI soft to palpation, non-tender and non-distended; Negative for hepatosplenomegaly Extremity no clubbing, cyanosis or edema Skin no rashes or lesions noted Neuro no focal motor deficits and no sensory deficits noted Psych affect normal Appearance: appropriate Assessment & Plan Assessment/Plan (1) Pneumonia: QUALIFIERS: Pneumonia type: due to unspecified organism Laterality: bilateral Lung location: unspecified part of lung Qualified Code(s): J18.9 - Pneumonia, unspecified organism PLAN: 1. Septic shock secondary to community-acquired pneumonia ?Sputum culture with normal goldie ?Continue with Levaquin as she has hives with penicillin and cephalosporins ?Dosing has to be every 48 secondary to her renal function issues ?MRSA swab is negative so vancomycin was discontinued ? Tolerated IV fluid resuscitation, appreciate nephrology's assistance if necessary can give her some more IV fluids though will encourage p.o. intake ?Did start her on midodrine to help assist with being able to undergo dialysis 2. DM2 with end-stage renal disease on dialysis ? Continue with sliding scale insulin and monitor ?Appreciate nephrology's assistance with dialysis ? Accu-Cheks AC at bedtime, will make adjustments as necessary, her insulin pump was discontinued secondary to hypoglycemia with poor oral intake 3. HTN ?Blood pressure was low so she was given IV fluids and midodrine ?Hold her blood pressure medications ?We will continue to monitor and make adjustments as necessary 4. GERD ?Stable ?Continue with PPI DVT: Heparin Charges/Coding Visit Charges Inpatient E&M: 31867 Subs Hosp L2
[2021-04-21] MEDS: APIXABAN 2.5 MG TABLET PO ×2 (12:19→21:26)
[2021-04-21] MEDS: guaiFENesin 1,200 MG Tablet 1200 MG PO ×2 (12:19→21:25)
[2021-04-21] MEDS: Aspirin E.C. 81 MG Tablet PO (12:19)
[2021-04-21] MEDS: Glucerna Shake 120 ML LIQUID PO (12:20)
[2021-04-21] MEDS: Calcium Acetate 667 MG Capsule PO ×2 (12:21→16:40)
[2021-04-21] MEDS: Midodrine HCl 5 MG Tablet 10 MG PO (12:22)
[2021-04-21 12:25] LABS: Bedside Glucose 151 mg/dL (70-110)
[2021-04-21] MEDS: oxyCODONE 5 MG Tablet PO ×2 (14:00→20:11)
--- NOTE | 2021-04-21 15:06 | PCM.PN.REN ---
Subjective Subjective Seen after dialysis, no complaints. Denies any cramping with HD today Objective Data Objective Data Vital Signs: Vital Signs Temp Pulse Resp BP Pulse Ox 97.9 F 85 20 H 121/55 H 95 04/21/21 10:06 04/21/21 10:06 04/21/21 10:06 04/21/21 10:06 04/21/21 10:06 Oxygen Flow Rate (L/min) 6 Oxygen Delivery Method Nasal Cannula Weight: 78.426 kg Body Mass Index (BMI) 25.5 Intake & Output: Intake and Output for Last 24 Hours 04/19/21 04/20/21 04/21/21 23:59 23:59 23:59 Intake Total 1740 / 2040 1310 / 1310 Output Total 0 / 0 Balance 1740 / 2040 1310 / 1310 0 / 0 Medical Nutrition Assessment Dietitian: Malnutrition Criteria Met Start: 04/18/21 13:12 Freq: Status: Active Protocol: Document 04/18/21 13:13 SHARAD (Rec: 04/18/21 13:13 SHARAD [id number]) Nutrition Malnutrition Evidence of Malnutrition Exists Yes Malnutrition (severe): Acute Illness/Injury Evidenced By Suboptimal Energy Intake ( Severe),Weight Loss (Severe) Clinical Problem Acute Disease or Injury Related Malnutrition Etiology related to acute illness and inability to consume adequate nutrition to meet pt est nutritional needs Signs/Symptoms as evidenced by <50% po intake and 2.4 kg wt loss x 5 days Status Active Problem Recommendation Dietitian Recommendations/Changes Will change diet to cho control / renal - no protein restriction d/t increased nutritional needs r/t dialysis tx Will provide 4 oz nepro cho steady w/ meals for increased nutrition if consumed. Lab / Micro Data Result Diagrams: 04/21/21 06:10 04/21/21 06:10 Labs: Laboratory Results - last 24 hr 04/20/21 16:30: POC Glucose 321 H 04/20/21 21:10: POC Glucose 308 H 04/21/21 06:10: WBC 16.9 H, RBC 3.39 L, Hgb 10.2 L, Hct 30.8 L, MCV 90.9, MCH 30.1, MCHC 33.1, RDW Std Deviation 56.4 H, RDW Coeff of Grazyna 17.6 H, Plt Count 186, MPV 11.0, Immature Gran % (Auto) 3.700 H, Neut % (Auto) 78.8 H, Lymph % (Auto) 7.4 L, [place] % (Auto) 7.7, Eos % (Auto) 1.8, Baso % (Auto) 0.6, Absolute Neuts (auto) 13.4 H, Absolute Lymphs (auto) 1.25, Nucleated RBC % 1.4 04/21/21 06:10: Sodium 133 L, Potassium 4.2, Chloride 96 L, Carbon Dioxide 28.0, Anion Gap 9, BUN 54 H, Creatinine 5.11 H, Estim Creat Clear Calc 11.78, Est GFR (MDRD) Af Amer 11 L, Est GFR (MDRD) Non-Af 9 L, BUN/Creatinine Ratio 10.6, Glucose 252 H, Calcium 9.5 04/21/21 06:15: POC Glucose 237 H 04/21/21 12:16: POC Glucose 151 H Micro: Microbiology 04/18/21 21:15 Sputum, Expectorated/Coughed Gram Stain - Final 04/18/21 21:15 Sputum, Expectorated/Coughed Respiratory Culture - Final 04/18/21 05:30 Blood Culture (Wb) - Anticubital Right Blood Culture - Preliminary No growth in 48 hours. 04/18/21 05:40 Blood Culture (Wb) - Anticubital Left Blood Culture - Preliminary No growth in 48 hours. 04/18/21 10:15 Mucosa - Nasopharyngeal Influenza Types A,B Direct FA (GEOVANNA) - Final 04/18/21 03:40 Nasal Secretion SARS-CoV-2 Antigen (Rapid) - Final Physical Exam Narrative General: Alert and oriented x3 in no apparent distress. HEENT: Normocephalic, atraumatic. Mucous membranes moist. Heart: Normal S1, S2. No rubs, murmurs, or gallop. Lungs: Clear anteriorly, diminished breath sounds posterior Abdomen: Normal bowel sounds, soft, nontender, no guarding or rebound. Extremity: No edema in the lower extremities. AV fistula right upper arm positive thrill and bruit Assessment & Plan Assessment/Plan (1) ESRD (end stage renal disease) on dialysis: PLAN: -The patient usually dialyzes on a MWF schedule at [facility]. -We will keep the patient on MWF dialysis schedule here. -She tolerated dialysis well today without significant drop in blood pressure. UF 1.6 L. -Likely next HD will be on Saturday unless acute issues arise. - continue renal diet and nepro (2) Anemia: PLAN: -Hemoglobin is 9.7 g/dL yesterday. Today 10.2. -We will continue BARBRA with dialysis. Goal hemoglobin for dialysis patient is between 10 to 11 g/dL. (3) HTN (hypertension): PLAN: -The patient has a history of hypertension. Bps were low but have improved. -BP is currently controlled on midodrine and off of antihypertensives. -Continue to monitor BP. (4) Pneumonia: QUALIFIERS: Pneumonia type: due to unspecified organism Laterality: bilateral Lung location: unspecified part of lung Qualified Code(s): J18.9 - Pneumonia, unspecified organism PLAN: Antibiotic treatment as per hospital medicine service.
[2021-04-21 16:50] LABS: Bedside Glucose 241 mg/dL (70-110)
[2021-04-21 16:51] VITALS: BP 140/61; PULSE 82; RESP 18; TEMP 36.6; O2SAT 94
[2021-04-21 18:00] VITALS: O2SAT 93
[2021-04-21 20:06] VITALS: BP 136/49; PULSE 77; RESP 18; TEMP 36.9; O2SAT 95
[2021-04-21] MEDS: Acetaminophen 325 MG Tablet 650 MG PO (20:10)
[2021-04-21] MEDS: Pantoprazole Sodium 40 MG Tablet PO (21:25)
[2021-04-21] MEDS: MELATONIN 3 MG TABLET PO (21:26)
[2021-04-21] MEDS: Atorvastatin Calcium 40 MG Tablet PO (21:27)
[2021-04-21 21:36] LABS: Bedside Glucose 202 mg/dL (70-110)
[2021-04-22] VITALS (7 sets, daily range): BP systolic 133–151; BP diastolic 50–66; PULSE 75–77; RESP 18–20; TEMP 36.1–36.6; O2SAT 93–98
[2021-04-22 07:06] LABS: Bedside Glucose 135 mg/dL (70-110)
[2021-04-22 07:24] LABS: Absolute Lymphocyte Count 1.21 X10^3/uL (0.83-4.51); Basophil# 0.08 X10^3/uL; Basophil% 0.5 % (0-1); Eosinophils% 2.7 % (0-5); Hematocrit 29.3 % (37-47); Hemoglobin 9.6 g/dL (12.0-15.0); Lymphocyte # 1.21 X10^3/ul (0.83-4.51); Lymphocyte % 8.2 % (19-41); Mean Corp Hgb Conc 32.8 g/dL (32-36); Mean Corpuscular Hgb 31.2 pg (27.0-32.0); Mean Corpuscular Volume 95.1 fL (81-99); Mean Platelet Vol. 11.9 fl (6.2-12.0); Monocyte# 1.56 X10^3/uL; Monocyte% 10.6 % (0-10); NRBC Flagged by Analyzer 1.1 % (0-5); Neutrophil # 10.95 X10^3/uL (2.7-7.7); Neutrophil % 74.1 % (47-70); POSITIVE DIFFERENTIAL YES; Platelet Count 148 K/mm3 (150-450); RBC Distribution Width CV 18.8 % (11.6-14.6); RBC Distribution Width SD 61.4 fl (35.1-43.9); Red Blood Count 3.08 M/mm3 (4.2-5.4); White Blood Count 14.8 K/mm3 (4.4-11.0)
[2021-04-22 07:25] LABS: Differential Indicated SCAN CRITERIA MET
[2021-04-22 07:49] LABS: Anion Gap 7 (5-15); BUN 40 mg/dL (7-18); BUN/Creat Ratio 9.6 RATIO (10-20); Calcium,Total 9.3 mg/dL (8.5-10.1); Chloride 96 mmol/L (98-107); Creatinine, Serum 4.15 mg/dL (0.55-1.02); EST Glomerular Filtration Rate 12 mL/min (>60); Est Glom Filt Rate - Afr Amer 14 mL/min (>60); Glucose 144 mg/dL (74-106); Sodium Level 133 mmol/L (136-145)
[2021-04-22 07:59] LABS: Anisocytosis 1+; Platelet Morphology LARGE
[2021-04-22 09:06] LABS: Bedside Glucose 147 mg/dL (70-110)
--- NOTE | 2021-04-22 09:37 | PN.HOSP_ITS ---
Subjective Subjective Feels better today have discontinued her midodrine. She is breathing a bit better and her white count improved. She did undergo dialysis yesterday and had some fluid removed Objective Data Objective Data Vital Signs: Vital Signs Temp Pulse Resp BP Pulse Ox 98 F 75 20 H 140/50 H 94 04/22/21 03:25 04/22/21 03:25 04/22/21 03:25 04/22/21 03:25 04/22/21 08:00 Oxygen Flow Rate (L/min) 5 Oxygen Delivery Method Nasal Cannula Weight: 172 lb 14.4 oz Body Mass Index (BMI) 25.5 Intake & Output: Intake and Output for Last 24 Hours 04/21/21 04/22/21 04/23/21 03:59 03:59 03:59 Intake Total 1010 / 1010 360 / 360 Output Total 0 / 0 Balance 1010 / 1010 360 / 360 Medical Nutrition Assessment Dietitian: Malnutrition Criteria Met Start: 04/18/21 13:12 Freq: Status: Active Protocol: Document 04/21/21 15:29 RMA (Rec: 04/21/21 15:29 RMA [id number]) Nutrition Malnutrition Evidence of Malnutrition Exists No Intake Problem Inadequate Oral Intake Etiology related to poor appetite/acute illness Signs/Symptoms as evidenced by fluctuating PO t meals~0-75% at meals Status Active Problem Recommendation Dietitian Recommendations/Changes Will adjust diet to 2000 calorie/consistent carbohydrate; phos-restricted; potassium-restricted; sodium- restricted; 1500ml FR diet. Will continue 4 oz nepro cho steady TID w/ meals for increased nutrition if consumed. Will d/c brigido fairchild w/ medpass. Lab / Micro Data Result Diagrams: 04/22/21 06:57 04/22/21 06:57 Labs: Laboratory Results - last 24 hr 04/21/21 12:16: POC Glucose 151 H 04/21/21 16:33: POC Glucose 241 H 04/21/21 21:30: POC Glucose 202 H 04/22/21 06:57: WBC 14.8 H, RBC 3.08 L, Hgb 9.6 L, Hct 29.3 L, MCV 95.1, MCH 31.2, MCHC 32.8, RDW Std Deviation 61.4 H, RDW Coeff of Grazyna 18.8 H, Plt Count 148 L, MPV 11.9, Immature Gran % (Auto) 3.900 H, Neut % (Auto) 74.1 H, Lymph % (Auto) 8.2 L, [place] % (Auto) 10.6 H, Eos % (Auto) 2.7, Baso % (Auto) 0.5, Absolute Neuts (auto) 11.0 H, Absolute Lymphs (auto) 1.21, Nucleated RBC % 1.1, Diff Path Review May foll, Plt Morphology Comment LARGE, Anisocytosis 1+ 04/22/21 06:57: Sodium 133 L, Potassium 4.0, Chloride 96 L, Carbon Dioxide 30.0, Anion Gap 7, BUN 40 H, Creatinine 4.15 H, Estim Creat Clear Calc 14.50, Est GFR (MDRD) Af Amer 14 L, Est GFR (MDRD) Non-Af 12 L, BUN/Creatinine Ratio 9.6 L, Glucose 144 H, Calcium 9.3 04/22/21 07:01: POC Glucose 135 H 04/22/21 08:58: POC Glucose 147 H Micro: Microbiology 04/22/21 04:45 Urine, Clean Catch Legionella Antigen - Final 04/22/21 04:45 Urine, Clean Catch Streptococcus pneumoniae Antigen (M - Final 04/18/21 21:15 Sputum, Expectorated/Coughed Gram Stain - Final 04/18/21 21:15 Sputum, Expectorated/Coughed Respiratory Culture - Final 04/18/21 05:30 Blood Culture (Wb) - Anticubital Right Blood Culture - Prelim inary No growth in 48 hours. 04/18/21 05:40 Blood Culture (Wb) - Anticubital Left Blood Culture - Preliminary No growth in 48 hours. 04/18/21 10:15 Mucosa - Nasopharyngeal Influenza Types A,B Direct FA (GEOVANNA) - Final 04/18/21 03:40 Nasal Secretion SARS-CoV-2 Antigen (Rapid) - Final Physical Exam Narrative Const alert, oriented x3 and no apparent distress General Appearance: cooperative HEENT normocephalic Mouth: Moist mucous membranes Eyes PERRL, EOMs intact bilaterally and conjunctivae normal Neck supple and no JVD Resp normal respiratory effort, no retractions and no use of accessory muscles Auscultation: crackles greater on the left base than right base, but improving, and diminished lung sounds; Negative for rales, rhonchi or wheezes Cardio regular rate, regular rhythm, S1 normal heart sound, S2 normal heart sound and no murmurs GI soft to palpation, non-tender and non-distended; Negative for hepatosplenomegaly Extremity no clubbing, cyanosis or edema Skin no rashes or lesions noted Neuro no focal motor deficits and no sensory deficits noted Psych affect normal Appearance: appropriate Assessment & Plan Assessment/Plan (1) Pneumonia: QUALIFIERS: Pneumonia type: due to unspecified organism Late rality: bilateral Lung location: unspecified part of lung Qualified Code(s): J18.9 - Pneumonia, unspecified organism PLAN: 1. community-acquired pneumonia ?Sputum culture with normal goldie ?Continue with Levaquin as she has hives with penicillin and cephalosporins ?Dosing has to be every 48 secondary to her renal function issues ?MRSA swab is negative so vancomycin was discontinued ? Tolerated IV fluid resuscitation, appreciate nephrology's assistance if necessary can give her some more IV fluids though will encourage p.o. intake ? Blood pressure is now stable, her midodrine has been discontinued ? She can return to SNF whenever medically ready which will hopefully happen the next 24 to 48 hours 2. DM2 with end-stage renal disease on dialysis ? Continue with sliding scale insulin and monitor ?Appreciate nephrology's assistance with dialysis ? Accu-Cheks AC at bedtime, will make adjustments as necessary, her insulin pump was discontinued secondary to hypoglycemia with poor oral intake 3. HTN ?Blood pressure was low so she was given IV fluids and midodrine ?Hold her blood pressure medications ?We will continue to monitor and make adjustments as necessary 4. GERD ?Stable ?Continue with PPI DVT: Heparin Charges/Coding Visit Charges Inpatient E&M: 44196 Subs Hosp L2
[2021-04-22] MEDS: guaiFENesin 1,200 MG Tablet 1200 MG PO ×2 (10:11→21:52)
[2021-04-22] MEDS: Calcium Acetate 667 MG Capsule PO ×3 (10:11→16:48)
[2021-04-22] MEDS: APIXABAN 2.5 MG TABLET PO ×2 (10:11→21:50)
[2021-04-22] MEDS: Aspirin E.C. 81 MG Tablet PO (10:11)
[2021-04-22] MEDS: levoFLOXacin IV 500 MG/100 ML BAG 100 MG IV (10:11)
[2021-04-22] MEDS: 0.9% Saline Lock 10 ML Syringe IV (10:12)
[2021-04-22 12:00] LABS: Bedside Glucose 183 mg/dL (70-110)
[2021-04-22] MEDS: Insulin Lispro 100 UNIT/ML INSULN.PEN SC ×3 (12:36→21:51)
--- NOTE | 2021-04-22 13:53 | PCM.PN.REN ---
Subjective Subjective Following for ESRD. The patient denies chest pain or nausea. Has some swelling in ankle. SOB is not any worse than usual. She is on home nc oxygen. Objective Data Objective Data Vital Signs: Vital Signs Temp Pulse Resp BP Pulse Ox 96.9 F L 75 18 151/66 H 97 04/22/21 09:35 04/22/21 09:35 04/22/21 09:35 04/22/21 09:35 04/22/21 12:00 Oxygen Flow Rate (L/min) 4 Oxygen Delivery Method Nasal Cannula Weight: 78.426 kg Body Mass Index (BMI) 25.5 Intake & Output: Intake and Output for Last 24 Hours 04/20/21 04/21/21 04/22/21 23:59 23:59 23:59 Intake Total 1310 / 1310 360 / 360 620 / 620 Output Total 0 / 0 0 / 0 Balance 1310 / 1310 360 / 360 620 / 620 Medical Nutrition Assessment Dietitian: Malnutrition Criteria Met Start: 04/18/21 13:12 Freq: Status: Active Protocol: Document 04/21/21 15:29 RMA (Rec: 04/21/21 15:29 RMA [id number]) Nutrition Malnutrition Evidence of Malnutrition Exists No Intake Problem Inadequate Oral Intake Etiology related to poor appetite/acute illness Signs/Symptoms as evidenced by fluctuating PO t meals~0-75% at meals Status Active Problem Recommendation Dietitian Recommendations/Changes Will adjust diet to 2000 calorie/consistent carbohydrate; phos-restricted; potassium-restricted; sodium- restricted; 1500ml FR diet. Will continue 4 oz nepro cho steady TID w/ meals for increased nutrition if consumed. Will d/c glucerfarzad fairchild w/ medpass. Lab / Micro Data Result Diagrams: 04/22/21 06:57 04/22/21 06:57 Labs: Laboratory Results - last 24 hr 04/21/21 16:33: POC Glucose 241 H 04/21/21 21:30: POC Glucose 202 H 04/22/21 06:57: WBC 14.8 H, RBC 3.08 L, Hgb 9.6 L, Hct 29.3 L, MCV 95.1, MCH 31.2, MCHC 32.8, RDW Std Deviation 61.4 H, RDW Coeff of Grazyna 18.8 H, Plt Count 148 L, MPV 11.9, Immature Gran % (Auto) 3.900 H, Neut % (Auto) 74.1 H, Lymph % (Auto) 8.2 L, [place] % (Auto) 10.6 H, Eos % (Auto) 2.7, Baso % (Auto) 0.5, Absolute Neuts (auto) 11.0 H, Absolute Lymphs (auto) 1.21, Nucleated RBC % 1.1, Diff Path Review May foll, Plt Morphology Comment LARGE, Anisocytosis 1+ 04/22/21 06:57: Sodium 133 L, Potassium 4.0, Chloride 96 L, Carbon Dioxide 30.0, Anion Gap 7, BUN 40 H, Creatinine 4.15 H, Estim Creat Clear Calc 14.50, Est GFR (MDRD) Af Amer 14 L, Est GFR (MDRD) Non-Af 12 L, BUN/Creatinine Ratio 9.6 L, Glucose 144 H, Calcium 9.3 04/22/21 07:01: POC Glucose 135 H 04/22/21 08:58: POC Glucose 147 H 04/22/21 11:41: POC Glucose 183 H Micro: Microbiology 04/22/21 04:45 Urine, Clean Catch Legionella Antigen - Final 04/22/21 04:45 Urine, Clean Catch Streptococcus pneumoniae Antigen (M - Final 04/18/21 21:15 Sputum, Expectorated/Coughed Gram Stain - Final 04/18/21 21:15 Sputum, Expectorated/Coughed Respiratory Culture - Final 04/18/21 05:30 Blood Culture (Wb) - Anticubital Right Blood Culture - Preliminary No growth in 48 hours. 04/18/21 05:40 Blood Culture (Wb) - Anticubital Left Blood Culture - Preliminary No growth in 48 hours. 04/18/21 10:15 Mucosa - Nasopharyngeal Influenza Types A,B Direct FA (GEOVANNA) - Final 04/18/21 03:40 Nasal Secretion SARS-CoV-2 Antigen (Rapid) - Final Physical Exam Narrative General: Alert and oriented x3 in no apparent distress. HEENT: Normocephalic, atraumatic. Mucous membranes moist. Heart: Normal S1, S2. No rubs, murmurs, or gallop. Lungs: Clear anteriorly, diminished breath sounds posterior Abdomen: Normal bowel sounds, soft, nontender, no guarding or rebound. Extremity: No edema in the lower extremities. AV fistula right upper arm positive thrill and bruit Assessment & Plan Assessment/Plan (1) ESRD (end stage renal disease) on dialysis: PLAN: -The patient usually dialyzes on a MWF schedule at [facility]. -We will keep the patient on MWF dialysis schedule here. -She tolerated dialysis well yesterday without significant drop in blood pressure. UF'd 1.6 L. -Next HD will be on 04/24/2021, unless she is discharged or acute issues arise. (2) Anemia: PLAN: -Hemoglobin is 9.6 g/dL today. -We will continue BARBRA with dialysis. Goal hemoglobin for dialysis patient is between 10 to 11 g/dL. (3) HTN (hypertension): PLAN: -The patient has a history of hypertension. -BP was low earlier this week. The patient did require midodrine. -The patient is no longer on midodrine, so we will watch blood pressure. May need to restart antihypertensive later. (4) Pneumonia: QUALIFIERS: Laterality: bilateral Lung location: unspecified part of lung Pneumonia type: due to unspecified organism Qualified Code(s): J18.9 - Pneumonia, unspecified organism PLAN: -Antibiotic treatment as per hospital medicine service. -Awaiting return to SNF.
[2021-04-22 16:56] LABS: Bedside Glucose 227 mg/dL (70-110)
[2021-04-22] MEDS: oxyCODONE 5 MG Tablet PO (20:10)
[2021-04-22] MEDS: Atorvastatin Calcium 40 MG Tablet PO (21:52)
[2021-04-22] MEDS: Pantoprazole Sodium 40 MG Tablet PO (21:53)
[2021-04-22 22:05] LABS: Bedside Glucose 185 mg/dL (70-110)
[2021-04-23] VITALS (7 sets, daily range): BP systolic 125–155; BP diastolic 55–73; PULSE 70–84; RESP 18; TEMP 36.2–36.5; O2SAT 91–95
[2021-04-23] MEDS: Acetaminophen 325 MG Tablet 650 MG PO ×2 (00:20→11:02)
[2021-04-23] MEDS: oxyCODONE 5 MG Tablet PO ×2 (03:55→11:01)
[2021-04-23 05:38] LABS: Absolute Lymphocyte Count 1.01 X10^3/uL (0.83-4.51); Absolute Neutrophil Count 11.3 X10^3/uL (2.0-7.7); Basophil# 0.07 X10^3/uL; Basophil% 0.5 % (0-1); Eosinophil# 0.39 X10^3/uL; Eosinophils% 2.7 % (0-5); Hematocrit 29.7 % (37-47); Hemoglobin 9.6 g/dL (12.0-15.0); Lymphocyte # 1.01 X10^3/ul (0.83-4.51); Lymphocyte % 6.9 % (19-41); Mean Corp Hgb Conc 32.3 g/dL (32-36); Mean Corpuscular Hgb 30.4 pg (27.0-32.0); Mean Platelet Vol. 12.7 fl (6.2-12.0); Monocyte% 10.2 % (0-10); NRBC Flagged by Analyzer 0.6 % (0-5); Neutrophil # 11.32 X10^3/uL (2.7-7.7); Neutrophil % 76.9 % (47-70); Platelet Count 147 K/mm3 (150-450); RBC Distribution Width CV 18.2 % (11.6-14.6); RBC Distribution Width SD 57.4 fl (35.1-43.9); Red Blood Count 3.16 M/mm3 (4.2-5.4); White Blood Count 14.7 K/mm3 (4.4-11.0)
[2021-04-23 06:25] LABS: Anion Gap 10 (5-15); BUN 52 mg/dL (7-18); BUN/Creat Ratio 10.7 RATIO (10-20); Calcium,Total 9.8 mg/dL (8.5-10.1); Chloride 95 mmol/L (98-107); Creatinine, Serum 4.88 mg/dL (0.55-1.02); EST Glomerular Filtration Rate 10 mL/min (>60); Est Glom Filt Rate - Afr Amer 12 mL/min (>60); Estimated Creatinine Clearance 12.33 ml/min; Glucose 112 mg/dL (74-106); Potassium 4.5 mmol/L (3.5-5.1); Sodium Level 132 mmol/L (136-145)
[2021-04-23 06:36] LABS: Bedside Glucose 88 mg/dL (70-110)
--- NOTE | 2021-04-23 07:56 | NURSING ---
accmarquise 59. Pt given saqib & ursula martin
[2021-04-23 08:06] LABS: Bedside Glucose 59 mg/dL (70-110)
[2021-04-23 08:50] LABS: Bedside Glucose 50 mg/dL (70-110)
--- NOTE | 2021-04-23 08:53 | NURSING ---
BGM RECHECK AFTER CAN OF COKE 50. PT GIVEN OJ & LIBAN CHACON. PT HAS LOTUS ON HER CELL PHONE THAT NOTIFIES HER OF BGM - PER HER LOTUS, BGM 70.
[2021-04-23] MEDS: Senna/Docusate Sodium 1 Tablet 2 TABLET PO (09:23)
[2021-04-23] MEDS: APIXABAN 2.5 MG TABLET PO (09:24)
[2021-04-23] MEDS: Aspirin E.C. 81 MG Tablet PO (09:24)
[2021-04-23] MEDS: guaiFENesin 1,200 MG Tablet 1200 MG PO (09:24)
[2021-04-23] MEDS: Calcium Acetate 667 MG Capsule PO (09:24)
--- NOTE | 2021-04-23 09:35 | NURSING ---
BGM NOW 62 AFTER SNACKS & SMALL AMOUNT BREAKFAST. PT STATES SHE FEELS TO FULL/NAUSEOUS TO EAT/DRINK ANYMORE @ THIS TIME - CORTEXT TO DR PALACIOS REGARDING SAME.
[2021-04-23 09:36] LABS: Bedside Glucose 64 mg/dL (70-110)
--- NOTE | 2021-04-23 09:41 | NURSING ---
Received call back from Dr Chaudhry - new order received.
[2021-04-23] MEDS: 0.9% Saline Lock 10 ML Syringe IV ×2 (11:05→16:48)
[2021-04-23] MEDS: Ondansetron 4 MG/2 ML Vial IV ×2 (11:05→19:52)
[2021-04-23 11:15] LABS: Bedside Glucose 86 mg/dL (70-110)
--- NOTE | 2021-04-23 12:38 | PCM.PN.REN ---
Subjective Subjective Following for ESRD. The patient complains of left heel pain. There is also some mild edema subjectively around both ankles. She denies increasing shortness of breath. There is no chest pain. Objective Data Objective Data Vital Signs: Vital Signs Temp Pulse Resp BP Pulse Ox 97.1 F L 70 18 125/55 H 91 04/23/21 07:49 04/23/21 07:49 04/23/21 07:49 04/23/21 07:49 04/23/21 11:24 Oxygen Flow Rate (L/min) 3 Oxygen Delivery Method Nasal Cannula Weight: 78.426 kg Body Mass Index (BMI) 25.5 Intake & Output: Intake and Output for Last 24 Hours 04/21/21 04/22/21 04/23/21 23:59 23:59 23:59 Intake Total 360 / 360 980 / 1230 700 / 700 Output Total 0 / 0 0 / 0 0 / 0 Balance 360 / 360 980 / 1230 700 / 700 Medical Nutrition Assessment Dietitian: Malnutrition Criteria Met Start: 04/18/21 13:12 Freq: Status: Active Protocol: Document 04/21/21 15:29 RMA (Rec: 04/21/21 15:29 RMA [id number]) Nutrition Malnutrition Evidence of Malnutrition Exists No Intake Problem Inadequate Oral Intake Etiology related to poor appetite/acute illness Signs/Symptoms as evidenced by fluctuating PO t meals~0-75% at meals Status Active Problem Recommendation Dietitian Recommendations/Changes Will adjust diet to 2000 calorie/consistent carbohydrate; phos-restricted; potassium-restricted; sodium- restricted; 1500ml FR diet. Will continue 4 oz nepro cho steady TID w/ meals for increased nutrition if consumed. Will d/c glucerfarzad fairchild w/ medpass. Lab / Micro Data Result Diagrams: 04/23/21 05:05 04/23/21 05:05 Labs: Laboratory Results - last 24 hr 04/22/21 16:46: POC Glucose 227 H 04/22/21 21:50: POC Glucose 185 H 04/23/21 05:05: WBC 14.7 H, RBC 3.16 L, Hgb 9.6 L, Hct 29.7 L, MCV 94.0, MCH 30.4, MCHC 32.3, RDW Std Deviation 57.4 H, RDW Coeff of Grazyna 18.2 H, Plt Count 147 L, MPV 12.7 H, Immature Gran % (Auto) 2.800 H, Neut % (Auto) 76.9 H, Lymph % (Auto) 6.9 L, [place] % (Auto) 10.2 H, Eos % (Auto) 2.7, Baso % (Auto) 0.5, Absolute Neuts (auto) 11.3 H, Absolute Lymphs (auto) 1.01, Nucleated RBC % 0.6 04/23/21 05:05: Sodium 132 L, Potassium 4.5, Chloride 95 L, Carbon Dioxide 27.0, Anion Gap 10, BUN 52 H, Creatinine 4.88 H, Estim Creat Clear Calc 12.33, Est GFR (MDRD) Af Amer 12 L, Est GFR (MDRD) Non-Af 10 L, BUN/Creatinine Ratio 10.7, Glucose 112 H, Calcium 9.8 04/23/21 06:33: POC Glucose 88 04/23/21 07:54: POC Glucose 59 L 04/23/21 08:44: POC Glucose 50 L 04/23/21 09:28: POC Glucose 64 L 04/23/21 10:58: POC Glucose 86 Micro: Microbiology 04/18/21 05:40 Blood Culture (Wb) - Anticubital Left Blood Culture - Final No growth in 5 days. 04/18/21 05:30 Blood Culture (Wb) - Anticubital Right Blood Culture - Final No growth in 5 days. 04/22/21 04:45 Urine, Clean Catch Legionella Antigen - Final 04/22/21 04:45 Urine, Clean Catch Streptococcus pneumoniae Antigen (M - Final 04/18/21 21:15 Sputum, Expectorated/Coughed Gram Stain - Final 04/18/21 21:15 Sputum, Expectorated/Coughed Respiratory Culture - Final 04/18/21 10:15 Mucosa - Nasopharyngeal Influenza Types A,B Direct FA (GEOVANNA) - Final 04/18/21 03:40 Nasal Secretion SARS-CoV-2 Antigen (Rapid) - Final Physical Exam Narrative General: Alert and oriented x3 in no apparent distress. HEENT: Normocephalic, atraumatic. Mucous membranes moist. Heart: Normal S1, S2. No rubs, murmurs, or gallop. Lungs: Clear anteriorly, diminished breath sounds posterior Abdomen: Normal bowel sounds, soft, nontender, no guarding or rebound. Extremity: Trace ankle edema. AV fistula right upper arm positive thrill and bruit Assessment & Plan Assessment/Plan (1) ESRD (end stage renal disease) on dialysis: PLAN: -The patient usually dialyzes on a MWF schedule at [facility]. -We will keep the patient on MWF dialysis schedule here. -She tolerated dialysis well on 04/20/2021 without significant drop in blood pressure. UF'd 1.6 L. -Next HD will be on 04/24/2021, unless she is discharged or acute issues arise. (2) Anemia: PLAN: -Hemoglobin is 9.6 g/dL today. -We will continue BARBRA with dialysis. Goal hemoglobin for dialysis patient is between 10 to 11 g/dL. (3) HTN (hypertension): PLAN: -The patient has a history of hypertension. -BP was low earlier this week. The patient did require midodrine. BP is now better. -The patient is no longer on midodrine, so we will watch blood pressure. (4) Pneumonia: QUALIFIERS: Pneumonia type: due to unspecified organism Laterality: bilateral Lung location: unspecified part of lung Qualified Code(s): J18.9 - Pneumonia, unspecified organism PLAN: -Antibiotic treatment as per hospital medicine service. -Awaiting return to SNF.
--- NOTE | 2021-04-23 14:36 | NURSING ---
200ML EMESIS. PT STATES FEELS BETTER AFTER EMESIS, BUT STILL SLIGHTLY NAUSEATED. TOO EARLY TO GIVE DOSE OF ZOFRAN. DR PALACIOS MADE AWARE & NEW ORDER RECEIVED.
--- NOTE | 2021-04-23 15:05 | PCM.PN.HOSP ---
Subjective Subjective Patient was seen and examined today, she does not appear short of breath at rest. Patient's white blood cell count today was 14.7, creatinine was 4.88 and BUN of 52. Patient gets dialysis tomorrow. She is currently on 3 L of oxygen which is what her setting is at the correction. Objective Data Objective Data Vital Signs: Vital Signs Temp Pulse Resp BP Pulse Ox 97.3 F L 81 18 155/71 H 93 04/23/21 14:00 04/23/21 14:00 04/23/21 14:00 04/23/21 14:00 04/23/21 14:00 Oxygen Flow Rate (L/min) 3 Oxygen Delivery Method Nasal Cannula Weight: 78.426 kg Body Mass Index (BMI) 25.5 Intake & Output: Intake and Output for Last 24 Hours 04/21/21 04/22/21 04/23/21 23:59 23:59 23:59 Intake Total 360 / 360 980 / 1230 700 / 700 Output Total 0 / 0 0 / 0 200 / 200 Balance 360 / 360 980 / 1230 500 / 500 Medical Nutrition Assessment Dietitian: Malnutrition Criteria Met Start: 04/18/21 13:12 Freq: Status: Active Protocol: Document 04/21/21 15:29 RMA (Rec: 04/21/21 15:29 RMA [id number]) Nutrition Malnutrition Evidence of Malnutrition Exists No Intake Problem Inadequate Oral Intake Etiology related to poor appetite/acute illness Signs/Symptoms as evidenced by fluctuating PO t meals~0-75% at meals Status Active Problem Recommendation Dietitian Recommendations/Changes Will adjust diet to 2000 calorie/consistent carbohydrate; phos-restricted; potassium-restricted; sodium- restricted; 1500ml FR diet. Will continue 4 oz nepro cho steady TID w/ meals for increased nutrition if consumed. Will d/c glucerna shake w/ medpass. Lab / Micro Data Result Diagrams: 04/23/21 05:05 04/23/21 05:05 Labs: Laboratory Results - last 24 hr 04/22/21 16:46: POC Glucose 227 H 04/22/21 21:50: POC Glucose 185 H 04/23/21 05:05: WBC 14.7 H, RBC 3.16 L, Hgb 9.6 L, Hct 29.7 L, MCV 94.0, MCH 30.4, MCHC 32.3, RDW Std Deviation 57.4 H, RDW Coeff of Grazyna 18.2 H, Plt Count 147 L, MPV 12.7 H, Immature Gran % (Auto) 2.800 H, Neut % (Auto) 76.9 H, Lymph % (Auto) 6.9 L, [place] % (Auto) 10.2 H, Eos % (Auto) 2.7, Baso % (Auto) 0.5, Absolute Neuts (auto) 11.3 H, Absolute Lymphs (auto) 1.01, Nucleated RBC % 0.6 04/23/21 05:05: Sodium 132 L, Potassium 4.5, Chloride 95 L, Carbon Dioxide 27.0, Anion Gap 10, BUN 52 H, Creatinine 4.88 H, Estim Creat Clear Calc 12.33, Est GFR (MDRD) Af Amer 12 L, Est GFR (MDRD) Non-Af 10 L, BUN/Creatinine Ratio 10.7, Glucose 112 H, Calcium 9.8 04/23/21 06:33: POC Glucose 88 04/23/21 07:54: POC Glucose 59 L 04/23/21 08:44: POC Glucose 50 L 04/23/21 09:28: POC Glucose 64 L 04/23/21 10:58: POC Glucose 86 Micro: Microbiology 04/18/21 05:40 Blood Culture (Wb) - Anticubital Left Blood Culture - Final No growth in 5 days. 04/18/21 05:30 Blood Culture (Wb) - Anticubital Right Blood Culture - Final No growth in 5 days. 04/22/21 04:45 Urine, Clean Catch Legionella Antigen - Final 04/22/21 04:45 Urine, Clean Catch Streptococcus pneumoniae Antigen (M - Final 04/18/21 21:15 Sputum, Expectorated/Coughed Gram Stain - Final 04/18/21 21:15 Sputum, Expectorated/Coughed Respiratory Culture - Final 04/18/21 10:15 Mucosa - Nasopharyngeal Influenza Types A,B Direct FA (GEOVANNA) - Final 04/18/21 03:40 Nasal Secretion SARS-CoV-2 Antigen (Rapid) - Final Physical Exam Const alert, oriented x3 and no apparent distress General Appearance: cooperative, well kempt and well developed Orientation / Consciousness: awake, oriented to person, oriented to place and oriented to time HEENT normocephalic and moist oral mucous membranes Eyes PERRL, EOMs intact bilaterally and conjunctivae normal Neck nuchal rigidity, supple, no JVD and thyroid normal General: trachea midline Resp normal respiratory effort, no retractions and no use of accessory muscles Resp Narrative: Decreased breath sounds were noted bilaterally Auscultation: Negative for rales, rhonchi or wheezes Cardio regular rate, regular rhythm, S1 normal heart sound, S2 normal heart sound, no murmurs, no rub and no gallops GI normal to inspection, nondistended, normoactive bowel sounds, soft to palpation, non-tender and non-distended Extremity no clubbing, cyanosis or edema Skin no rashes or lesions noted General Skin Exam: no breakdown Neuro oriented x3, CN's II-XII intact bilaterally, no focal motor deficits and no sensory deficits noted Sensorium / Orientation: awake and alert Speech: speech normal Psych thought process normal and affect normal Assessment & Plan Assessment/Plan (1) Diabetes: PLAN: 1. Community-acquired pneumonia-organism unknown, patient is currently on Levaquin 500 mg every 48 hours, she will continue on this #2 type 2 diabetes-patient's blood sugars will be monitored and sliding scale insulin will be given as appropriate #3 end-stage renal disease on dialysis-patient's dialysis day is tomorrow #4 essential hypertension-continue present medications #5 GERD-continue administration of PPI #6 chronic hypoxic respiratory failure-patient is currently on 3 L via nasal cannula which is her setting at the correction, pulse ox will be monitored and oxygen delivery will be adjusted as needed #7 hyperlipidemia-patient is on atorvastatin #8 nausea and vomiting today-patient will be given antiemetics, she will be placed on a clear liquid diet and reevaluated tomorrow. Charges/Coding Visit Charges Inpatient E&M: 92499 Subs Hosp L2
[2021-04-23] MEDS: Metoclopramide 5 MG TABLET PO (15:54)
--- NOTE | 2021-04-23 16:13 | NURSING ---
400ML EMESIS IMMEDIATELY AFTER TAKING PO REGLAN. DR PALACIOS MADE AWARE - REGLAN CHANGED TO IV
[2021-04-23 16:16] LABS: Bedside Glucose 98 mg/dL (70-110)
[2021-04-23] MEDS: Metoclopramide 10 MG/2 ML Vial 5 MG IV ×2 (16:48→23:47)
[2021-04-23 21:21] LABS: Bedside Glucose 118 mg/dL (70-110)
[2021-04-24 02:00] VITALS: BP 129/59; PULSE 86; RESP 18; TEMP 36.8; O2SAT 95
[2021-04-24] MEDS: Metoclopramide 10 MG/2 ML Vial 5 MG IV ×2 (06:28→12:13)
[2021-04-24] MEDS: 0.9% Saline Lock 10 ML Syringe IV (06:28)
[2021-04-24 06:55] LABS: Bedside Glucose 130 mg/dL (70-110)
[2021-04-24 07:25] VITALS: O2SAT 95
[2021-04-24 09:05] VITALS: BP 152/69; PULSE 88; RESP 16; TEMP 36.7; O2SAT 97
[2021-04-24] MEDS: Calcium Acetate 667 MG Capsule PO ×3 (09:12→18:22)
[2021-04-24] MEDS: Aspirin E.C. 81 MG Tablet PO (09:13)
[2021-04-24 12:01] LABS: Bedside Glucose 197 mg/dL (70-110)
[2021-04-24] MEDS: APIXABAN 2.5 MG TABLET PO (12:08)
[2021-04-24] MEDS: guaiFENesin 1,200 MG Tablet 1200 MG PO (12:08)
[2021-04-24] MEDS: Senna/Docusate Sodium 1 Tablet 2 TABLET PO (12:08)
[2021-04-24] MEDS: Insulin Lispro 100 UNIT/ML INSULN.PEN SC (12:09)
--- NOTE | 2021-04-24 12:22 | CASEMGMT ---
Addendum entered by Jennifer Vallecillo 04/24/21 15:20: Social Work Pt did well with her lunch, getting dialyzed now, can go after that as long as the custodial can take her at that time. JINA called Glory at [facility] twice, messages left asking if it is okay for pt to discharge from here between 6:30-7:00 this evening to come back to [facility]. WILDA Villalobos Original Note: Social Work As per physician, pt may be ready for discharge after lunch. JINA called Gl[facility] at [facility] to let her know, and faxed updates. WILDA Villalobos
[2021-04-24 13:41] LABS: Pathologist Review Reviewed
[2021-04-24 14:30] VITALS: BP 135/63; PULSE 81; RESP 20; TEMP 36.9
--- NOTE | 2021-04-24 15:22 | TREXTCAR_ITS ---
Diet 04/24/21 10:30 Diet: Consistent Carb - Calorie Controlled Dietary Modifications:: Phosphorus Restricted Potassium Restricted Sodium Restricted Type of Dietary Supplement:: Nepro Is pt able to select menu?: Yes Diet Comments: 120ml nepro carb steady Q meal How many daily calories?: 2000 calorie Routine Orders/Code Status O2 Liters per Minute: 3 O2 Frequency: Continuous Code Status: Full Code Wound(s) Rt knee: Wound Type: Abrasion scalp: Wound Type: scabbed areas Therapies Weight Bearing: Full weight bearing Problem/Diagnosis (1) ESRD (end stage renal disease) on dialysis: Status: Chronic (2) Anemia: Status: Chronic (3) HTN (hypertension): Status: Chronic (4) Pneumonia: Status: Acute Comment: organism unknown (5) Diabetes: Status: Chronic Comment: insulin pump (6) Chronic respiratory failure: Status: Chronic Allergies/Procedures Done in Hospital Allergies amoxicillin Allergy (Verified 04/17/21 23:13) Hives benzonatate [From Tessalon Perles] Allergy (Verified 04/17/21 23:13) Hives Cephalosporins Allergy (Verified 04/17/21 23:13) Hives clavulanic acid [From Augmentin] Allergy (Verified 04/17/21 23:13) Hives lansoprazole [From Prevacid] Allergy (Verified 04/17/21 23:13) Other latex Allergy (Verified 04/17/21 23:13) Hives meropenem Allergy (Verified 04/17/21 23:13) Hives Penicillins Allergy (Verified 04/17/21 23:13) Hives silicone Adverse Reaction (Verified 04/17/21 23:13) Hives simethicone Adverse Reaction (Verified 04/17/21 23:13) PT UNSURE OF REACTION Procedures: Dialysis Type of Care/Length of Stay Estimated LOS: Convalescent Care Less Than 30 days Type of Care Needed: Skilled Rehab Potential: Fair Prognosis: Fair Additional Orders/Day of Discharge H&P will serve as current which was dated: 04/18/21 Day of Discharge: 04/24/21 Dietary and Speech Recommendations Dietitian Recommendations/Changes: Will adjust diet to 2000 calorie/consistent carbohydrate; phos-restricted; potassium-restricted; sodium-restricted; 1500ml FR diet. Will continue 4 oz nepro cho steady TID w/ meals for increased nutrition if consumed. Will d/c glucerfarzad reedke w/ jocelyne. Discharge Plan Admission Admit Date/Time: 04/18/21 06:33 Primary Reason for Your Visit: pneumonia Attending Provider: Vineet Chaudhry Primary Care Provider: Jhony Delgado Consulting Providers: Chago Guillne Discharge Orders/Prescriptions Prescriptions: New levofloxacin 500 mg Tablet 500 mg PO Q48@0600 Qty: 0 RF: 0 calcium acetate(phosphat bind) 667 mg Capsule 667 mg PO TIDCM Qty: 0 RF: 0 Continued furosemide 40 mg Tablet 80 mg PO DAILY RF: 0 atorvastatin 40 mg tablet 40 mg PO QHS RF: 0 metoprolol succinate 50 mg tablet extended release 24 hr 50 mg PO BID RF: 0 omeprazole 40 mg capsule,delayed release(DR/EC) 40 mg PO QHS RF: 0 hydroxyzine HCl 25 mg tablet 25 mg PO BID RF: 0 hydralazine 50 mg tablet 50 mg PO TID RF: 0 cholecalciferol (vitamin D3) 125 mcg (5,000 unit) Capsule 125 mcg PO DAILY RF: 0 Insulin Basal Pump (Pt's Own) [Pump, Basal] 1 unit subcut Q24 Qty: 0 RF: 0 prochlorperazine maleate [Compazine] 10 mg tablet 10 mg PO TID PRN (Reason: nausea and vomiting) Qty: 20 RF: 0 aspirin 81 mg Capsule,Delayed Release(Dr/Ec) 81 mg PO DAILY RF: 0 Acidophilus Capsule 2 cap PO BID RF: 0 Eliquis 5 mg tablet 2.5 mg PO BID RF: 0 promethazine 25 mg tablet 25 mg PO BID RF: 0 oxycodone 5 mg tablet 5 mg PO Q6H PRN (Reason: pain) 5 Days Qty: 20 RF: 0 albuterol sulfate 2.5 mg /3 mL (0.083 %) Solution For Nebulization 2.5 mg INHALATION Q2H PRN (Reason: Shortness Of Breath Or Wheezing) RF: 0 nutritional supplements Liquid 240 ml PO DAILY RF: 0 eucalyptus-menthol Lozenge 3.1 mg MUCOUS MEMBRANE Q2H PRN (Reason: Sore Throat) RF: 0 ondansetron HCl 4 mg Tablet 4 mg PO Q6H PRN (Reason: Nausea) RF: 0 ascorbic acid (vitamin C) 1,000 mg Tablet Extended Release 1,000 mg PO DAILY RF: 0 Discontinued fluconazole 200 mg tablet 200 mg PO QHS RF: 0 prednisone 20 mg Tablet 40 mg PO DAILY RF: 0 doxycycline hyclate 100 mg Tablet 100 mg PO BID RF: 0 terbinafine HCl 1 % Cream 1 applic TOPICAL BID RF: 0 Referrals / Follow Up: Jhony Delgado MD [Primary Care Provider] - Disposition Disposition (needs filled in before D/C Order can be placed): Detention Facility
--- NOTE | 2021-04-24 15:36 | PN.RENAL_ITS ---
Subjective Subjective Resting in bed, seen at start of dialysis. Objective Data Objective Data Vital Signs: Vital Signs Temp Pulse Resp BP Pulse Ox 98.0 F 88 16 152/69 H 97 04/24/21 09:05 04/24/21 09:05 04/24/21 09:05 04/24/21 09:05 04/24/21 09:05 Oxygen Flow Rate (L/min) 3 Oxygen Delivery Method Nasal Cannula Weight: 78.426 kg Body Mass Index (BMI) 25.5 Intake & Output: Intake and Output for Last 24 Hours 04/22/21 04/23/21 04/24/21 23:59 23:59 23:59 Intake Total 980 / 1230 700 / 1000 500 / 500 Output Total 0 / 0 600 / 600 Balance 980 / 1230 100 / 400 500 / 500 Medical Nutrition Assessment Dietitian: Malnutrition Criteria Met Start: 04/18/21 13:12 Freq: Status: Active Protocol: Document 04/21/21 15:29 RMA (Rec: 04/21/21 15:29 RMA [id number]) Nutrition Malnutrition Evidence of Malnutrition Exists No Intake Problem Inadequate Oral Intake Etiology related to poor appetite/acute illness Signs/Symptoms as evidenced by fluctuating PO t meals~0-75% at meals Status Active Problem Recommendation Dietitian Recommendations/Changes Will adjust diet to 2000 calorie/consistent carbohydrate; phos-restricted; potassium-restricted; sodium- restricted; 1500ml FR diet. Will continue 4 oz nepro cho steady TID w/ meals for increased nutrition if consumed. Will d/c glucerna shake w/ medpass. Lab / Micro Data Result Diagrams: 04/23/21 05:05 04/23/21 05:05 Labs: Laboratory Results - last 24 hr 04/22/21 06:57: Diff Path Review Reviewed 04/23/21 16:08: POC Glucose 98 04/23/21 19:57: POC Glucose 118 H 04/24/21 06:47: POC Glucose 130 H 04/24/21 11:57: POC Glucose 197 H Micro: Microbiology 04/18/21 05:40 Blood Culture (Wb) - Anticubital Left Blood Culture - Final No growth in 5 days. 04/18/21 05:30 Blood Culture (Wb) - Anticubital Right Blood Culture - Final No growth in 5 days. 04/22/21 04:45 Urine, Clean Catch Legionella Antigen - Final 04/22/21 04:45 Urine, Clean Catch Streptococcus pneumoniae Antigen (M - Final 04/18/21 21:15 Sputum, Expectorated/Coughed Gram Stain - Final 04/18/21 21:15 Sputum, Expectorated/Coughed Respiratory Culture - Final 04/18/21 10:15 Mucosa - Nasopharyngeal Influenza Types A,B Direct FA (GEOVANNA) - Final 04/18/21 03:40 Nasal Secretion SARS-CoV-2 Antigen (Rapid) - Final Physical Exam Narrative General: Alert and oriented x3 in no apparent distress. HEENT: Normocephalic, atraumatic. Mucous membranes moist. Heart: Normal S1, S2. No rubs, murmurs, or gallop. Lungs: Clear anteriorly, diminished breath sounds posterior Abdomen: Normal bowel sounds, soft, nontender, no guarding or rebound. Extremity: Trace ankle edema. AV fistula right upper arm accessed for dialysis Assessment & Plan Assessment/Plan (1) ESRD (end stage renal disease) on dialysis: PLAN: -The patient dialyzes on a MWF schedule at [facility]. -For dialysis today over 3hr/UF 1 to 2 L as patient/blood pressure tolerates (2) Anemia: PLAN: -Last hemoglobin is 9.6 g/dL -We will continue BARBRA with dialysis. Goal hemoglobin for dialysis patient is between 10 to 11 g/dL. (3) HTN (hypertension): PLAN: -The patient has a history of hypertension. -BP was low earlier this week. The patient did require midodrine. BP is now better. -The patient is no longer on midodrine, so we will watch blood pressure. (4) Pneumonia: QUALIFIERS: Pneumonia type: due to unspecified organism Laterality: bilateral Lung location: unspecified part of lung Qualified Code(s): J18.9 - Pneumonia, unspecified organism PLAN: -Antibiotic treatment as per hospital medicine service. -Possible return to SNF today after dialysis.
[2021-04-24] MEDS: levoFLOXacin 500 MG Tablet PO (15:37)
--- NOTE | 2021-04-24 16:01 | CASEMGMT ---
Social Work Pt is ready for discharge back to [facility] today after dialysis. SW spoke w/Glory at [facility], she states is fine for pt to return this evening. SW spoke w/pt, she does not think she can tolerate sitting up for transport. SW set up ambulance for 6:30pm. Pt okayed for SW to call her daughter. SW called daughter Leena, message left letting her know pt's pickup time. SW let pt, pt's bedside RN, and Glory at [facility] know the time(left her a message so also called and let [facility] know). Discharge paperwork faxed to [facility]. No further needs, pt to [facility] today. WILDA Villalobos
--- NOTE | 2021-04-24 16:20 | PCM.DC.SUM ---
Providers Date of Admission: 04/18/21 Date of Discharge: 04/24/21 Primary Care Physician: Dr. Jhony Delgado MD Consultations 04/18/21 07:13 Consult: Nephrology Routine Consulting Provider: Chago Guillen Reason for Consult: esrd (m,w,f dialysis) EMERGENT Consult: No Notified: Yes Date Notified: 04/18/21 Time Notified: 08:49 Method of Notification: Answering Service 04/18/21 08:37 Consult: Nephrology Routine Consulting Provider: Chago Guillen Reason for Consult: ESRD (M.W.F) EMERGENT Consult: No Notified: Yes Date Notified: 04/18/21 Time Notified: 08:49 Method of Notification: Answering Service Reason For Visit: PNEUMONIA Diagnosis Discharge Diagnosis (1) ESRD (end stage renal disease) on dialysis: Status: Chronic Code(s): N18.6 - End stage renal disease; Z99.2 - Dependence on renal dialysis (2) Anemia: Status: Chronic Code(s): D64.9 - Anemia, unspecified (3) HTN (hypertension): Status: Chronic Code(s): I10 - Essential (primary) hypertension (4) Pneumonia: Status: Acute Code(s): J18.9 - Pneumonia, unspecified organism Qualifiers: Laterality: bilateral Lung location: unspecified part of lung Pneumonia type: due to unspecified organism Qualified Code(s): J18.9 - Pneumonia, unspecified organism (5) Diabetes: Status: Chronic Code(s): E11.9 - Type 2 diabetes mellitus without complications (6) Chronic respiratory failure: Status: Chronic Code(s): J96.10 - Chronic respiratory failure, unspecified whether with hypoxia or hypercapnia Plan: 1. Community-acquired pneumonia-organism unknown #2 type 2 diabetes #3 end-stage renal disease on dialysis #4 essential hypertension-continue present medications #5 GERD-continue administration of PPI #6 chronic hypoxic respiratory failure #7 hyperlipidemia-patient is on atorvastatin . Medications at Discharge Home Medications atorvastatin 40 mg PO QHS 11/25/20 cholecalciferol (vitamin D3) 125 mcg PO DAILY 11/25/20 furosemide 80 mg PO DAILY 11/25/20 hydralazine 50 mg PO TID 11/25/20 hydroxyzine HCl 25 mg PO BID 11/25/20 metoprolol succinate 50 mg PO BID 11/25/20 omeprazole 40 mg PO QHS 11/25/20 Insulin Basal Pump (Pt's Own) [Pump, Basal] 1 unit SUBCUT Q24 #0 12/06/20 prochlorperazine maleate [Compazine] 10 mg PO TID PRN #20 tab 12/18/20 Acidophilus 2 cap PO BID 03/02/21 Eliquis 2.5 mg PO BID 03/02/21 aspirin 81 mg PO DAILY 03/02/21 promethazine 25 mg PO BID 03/02/21 oxycodone 5 mg PO Q6H PRN 5 Days #20 tab 03/03/21 albuterol sulfate 2.5 mg INHALATION Q2H PRN 03/22/21 ascorbic acid (vitamin C) 1,000 mg PO DAILY 04/18/21 eucalyptus-menthol 3.1 mg MUCOUS MEMBRANE Q2H PRN 04/18/21 nutritional supplements 240 ml PO DAILY 04/18/21 ondansetron HCl 4 mg PO Q6H PRN 04/18/21 calcium acetate(phosphat bind) 667 mg PO TIDCM #0 cap 04/24/21 levofloxacin 500 mg PO Q48@0600 #0 tab 04/24/21 Hospital Course Operations None Procedures Dialysis Summary of Care Provided Minutes Spent on Discharge: 32 Hospital Course: This 61-year-old white female was seen in the emergency room at [facility] after being transported in from a local extended care facility at which she resides due to shortness of breath. She stated she had been checked for COVID-19 multiple times at the residential and has been negative, she is on chronic oxygen at the residential at 3 L/min via nasal cannula. Evaluation in the ER revealed her pulse ox to be in the low 90s on 3 L, chest x-ray showed mild pleural effusion with no obvious infiltrates, white blood cell count however was elevated at 20.3 and a procalcitonin level was elevated at 1.25 indicating a possible infectious etiology. CT scan of the chest showed changes consistent with atypical pneumonia, COVID test was negative, she was given vancomycin and Levaquin in the emergency room and she was admitted to [place] [id number] for further treatment. During her hospitalization, she underwent her scheduled dialysis, respiratory status improved during her hospitalization, no exact etiology for the pneumonia was identified, Levaquin was continued during her hospitalization. On 04/24/2021, patient was seen and examined: On examination she appeared older than her stated age, she does not appear to be in any distress. Vital signs as documented. Skin warm and dry and without overt rashes. Neck without JVD, thyroid appears normal, trachea is midline, neck is supple. Lungs clear, normal air movement was noted. Heart exam notable for regular rhythm, normal sounds and absence of murmurs, rubs or gallops. Abdomen unremarkable and without evidence of organomegaly, masses, or abdominal aortic enlargement, bowel sounds are present in all 4 quadrants, no abdominal tenderness was noted. Extremities nonedematous, no cyanosis was noted, no clubbing was noted. Neuro: Cranial nerves II through XII are grossly intact, no focal motor deficits were noted, sensation to light touch and pinprick is intact, motor exam 5/5 throughout. Psych: Patient is alert and oriented x3, she does not appear anxious or depressed, she does not appear agitated. Patient was felt to be stable for transfer back to her extended care facility on 04/24/2021 in stable condition Medical Records Data Medical Nutrition Assessment Dietitian: Malnutrition Criteria Met Start: 04/18/21 13:12 Freq: Status: Active Protocol: Document 04/21/21 15:29 RMA (Rec: 04/21/21 15:29 RMA [id number]) Nutrition Malnutrition Evidence of Malnutrition Exists No Intake Problem Inadequate Oral Intake Etiology related to poor appetite/acute illness Signs/Symptoms as evidenced by fluctuating PO t meals~0-75% at meals Status Active Problem Recommendation Dietitian Recommendations/Changes Will adjust diet to 2000 calorie/consistent carbohydrate; phos-restricted; potassium-restricted; sodium- restricted; 1500ml FR diet. Will continue 4 oz nepro cho steady TID w/ meals for increased nutrition if consumed. Will d/c glucerna shake w/ medpass. Weight / BMI Weight Weight: 78.426 kg Body Mass Index (BMI) 25.5 ABG / Lab / Microbiology Data Result Diagrams: 04/23/21 05:05 04/23/21 05:05 Laboratory: Laboratory Results - last 24 hr 04/22/21 06:57: Diff Path Review Reviewed 04/23/21 19:57: POC Glucose 118 H 04/24/21 06:47: POC Glucose 130 H 04/24/21 11:57: POC Glucose 197 H Microbiology: Microbiology 04/18/21 05:40 Blood Culture (Wb) - Anticubital Left Blood Culture - Final No growth in 5 days. 04/18/21 05:30 Blood Culture (Wb) - Anticubital Right Blood Culture - Final No growth in 5 days. 04/22/21 04:45 Urine, Clean Catch Legionella Antigen - Final 04/22/21 04:45 Urine, Clean Catch Streptococcus pneumoniae Antigen (M - Final 04/18/21 21:15 Sputum, Expectorated/Coughed Gram Stain - Final 04/18/21 21:15 Sputum, Expectorated/Coughed Respiratory Culture - Final 04/18/21 10:15 Mucosa - Nasopharyngeal Influenza Types A,B Direct FA (GEOVANNA) - Final 04/18/21 03:40 Nasal Secretion SARS-CoV-2 Antigen (Rapid) - Final Meaningful Use Info Meaningful Use Diagnoses (Choose all that apply): None applicable Discharge Plan Admission Admit Date/Time: 04/18/21 06:33 Primary Reason for Your Visit: pneumonia Attending Provider: Vineet Chaudhry Primary Care Provider: Jhony Delgado Consulting Providers: Chago Guillen Discharge Orders/Prescriptions Prescriptions: New levofloxacin 500 mg Tablet 500 mg PO Q48@0600 Qty: 0 RF: 0 calcium acetate(phosphat bind) 667 mg Capsule 667 mg PO TIDCM Qty: 0 RF: 0 Continued furosemide 40 mg Tablet 80 mg PO DAILY RF: 0 atorvastatin 40 mg tablet 40 mg PO QHS RF: 0 metoprolol succinate 50 mg tablet extended release 24 hr 50 mg PO BID RF: 0 omeprazole 40 mg capsule,delayed release(DR/EC) 40 mg PO QHS RF: 0 hydroxyzine HCl 25 mg tablet 25 mg PO BID RF: 0 hydralazine 50 mg tablet 50 mg PO TID RF: 0 cholecalciferol (vitamin D3) 125 mcg (5,000 unit) Capsule 125 mcg PO DAILY RF: 0 Insulin Basal Pump (Pt's Own) [Pump, Basal] 1 unit subcut Q24 Qty: 0 RF: 0 prochlorperazine maleate [Compazine] 10 mg tablet 10 mg PO TID PRN (Reason: nausea and vomiting) Qty: 20 RF: 0 aspirin 81 mg Capsule,Delayed Release(Dr/Ec) 81 mg PO DAILY RF: 0 Acidophilus Capsule 2 cap PO BID RF: 0 Eliquis 5 mg tablet 2.5 mg PO BID RF: 0 promethazine 25 mg tablet 25 mg PO BID RF: 0 oxycodone 5 mg tablet 5 mg PO Q6H PRN (Reason: pain) 5 Days Qty: 20 RF: 0 albuterol sulfate 2.5 mg /3 mL (0.083 %) Solution For Nebulization 2.5 mg INHALATION Q2H PRN (Reason: Shortness Of Breath Or Wheezing) RF: 0 nutritional supplements Liquid 240 ml PO DAILY RF: 0 eucalyptus-menthol Lozenge 3.1 mg MUCOUS MEMBRANE Q2H PRN (Reason: Sore Throat) RF: 0 ondansetron HCl 4 mg Tablet 4 mg PO Q6H PRN (Reason: Nausea) RF: 0 ascorbic acid (vitamin C) 1,000 mg Tablet Extended Release 1,000 mg PO DAILY RF: 0 Discontinued fluconazole 200 mg tablet 200 mg PO QHS RF: 0 prednisone 20 mg Tablet 40 mg PO DAILY RF: 0 doxycycline hyclate 100 mg Tablet 100 mg PO BID RF: 0 terbinafine HCl 1 % Cream 1 applic TOPICAL BID RF: 0 Referrals / Follow Up: Jhony Delgado MD [Primary Care Provider] - Disposition Disposition (needs filled in before D/C Order can be placed): [facility] Charges/Coding Visit Charges Inpatient E&M: 22260 Disch Hosp
[2021-04-24 16:51] LABS: Bedside Glucose 141 mg/dL (70-110)
[2021-04-24 18:00] VITALS: BP 130/64; PULSE 90; RESP 20; TEMP 36.7
--- NOTE | 2021-04-24 18:50 | DIALYSIS ---
3 hour tx complete. net uf 2000 ml's removed. tolerated well. needles pulled with hemostasis after 10 minutes. report to primary nurse Ty. See scanned records.
== END 2021-04-24 18:45 | DRG 193 ==
LOC: ED 04-18 06:35 → MS3 04-18 07:25
PROVIDERS: Family Medicine; Admitting Provider Hospitalist; Emergency Provider Emergency Medicine; PCP Family Medicine; Visit Provider Internal Medicine
DX: J18.9 Pneumonia, unspecified organism (principal); N18.6 End stage renal disease; I13.2 Hypertensive heart and chronic kidney disease with heart failure and with stage 5 chronic kidney disease, or end stage renal disease; J96.11 Chronic respiratory failure with hypoxia; D63.1 Anemia in chronic kidney disease; I95.9 Hypotension, unspecified; E11.22 Type 2 diabetes mellitus with diabetic chronic kidney disease; Z79.4 Long term (current) use of insulin; I48.0 Paroxysmal atrial fibrillation; I50.9 Heart failure, unspecified; Z99.2 Dependence on renal dialysis; K21.9 Gastro-esophageal reflux disease without esophagitis; E78.5 Hyperlipidemia, unspecified; I25.2 Old myocardial infarction; I44.0 Atrioventricular block, first degree; R11.2 Nausea with vomiting, unspecified; Z79.899 Other long term (current) drug therapy; Z79.01 Long term (current) use of anticoagulants; Z79.82 Long term (current) use of aspirin; Z99.81 Dependence on supplemental oxygen; Z95.810 Presence of automatic (implantable) cardiac defibrillator; Z87.891 Personal history of nicotine dependence
CPT/HCPCS: 36415; 71045; 71250; 80048; 82962; 83735; 84100; 84145; 85025; 87040; 87070; 87205; 87426; 87449; 87641; 87804; 90937; 93005; 94762; 97110; 97162; 97166; 97530; 97535; 97802; 97803; 99251; 99284; J7030; J7040; J7050; A4216; G0257; G0463; J2405

== ENCOUNTER 2021-05-07 21:34 | Emergency (ER) | payer MEDICARE, MEDICAID, SELFPAY ==
[2021-05-07 21:36] VITALS: BP 101/52; PULSE 74; RESP 22; TEMP 37.1; O2SAT 95; BMI 30.1
--- NOTE | 2021-05-07 21:57 | CT_ITS ---
EXAM: CT HEAD WITHOUT INTRAVENOUS CONTRAST CLINICAL INDICATION: ms change TECHNIQUE: Multiple axial images were obtained of the head without intravenous contrast. CTDIvol = ( 44.99 ) mGy, DLP = ( 812.98 ) mGycm This CT exam was performed using one or more of the following dose reduction techniques: automated exposure control, adjustment of the mA and/or kV according to patient size, and/or use of iterative reconstruction technique. This report was created using [employer] report generation technology. COMPARISON: None. FINDINGS: BRAIN AND EXTRA-AXIAL SPACES: No acute intracranial hemorrhage, mass effect or edema. No evidence of acute cortical stroke. Periventricular small vessel ischemic change. No midline shift or hydrocephalus. Diffuse parenchymal atrophy. Posterior fossa structures are unremarkable. Basal cisterns are patent. BONES/JOINTS: Unremarkable. No discrete lytic or blastic abnormalities. VASCULATURE: Atherosclerotic calcifications of the carotid siphons and vertebrobasilar arteries. SINUSES: Unremarkable as visualized. Clear. MASTOID AIR CELLS: Visualized sinuses and mastoid air cells are clear. ORBITS: Visualized globes, extraocular muscles, optic nerves and retrobulbar fat appear unremarkable. CT/Brain/Head without Contrast IMPRESSION: 1. No evidence of acute intracranial pathology. 2. Diffuse involutional changes and chronic ischemic small vessel white matter disease. Electronically Signed: Sharan House MD at 22:44 EST Tel , Service support ,
--- NOTE | 2021-05-07 21:57 | EKG12_ITS ---
Test Reason : GEN ILLNESS Blood Pressure : / mmHG Vent. Rate : 072 BPM Atrial Rate : 072 BPM P-R Int : 222 ms QRS Dur : 142 ms QT Int : 466 ms P-R-T Axes : 072 160 043 degrees QTc Int : 510 ms Atrial-sensed ventricular-paced rhythm with prolonged AV conduction with occasional AV dual-paced com plexes Abnormal ECG Confirmed by MAHESH RUSSO, JAYY ([id number]), dictionary editor SHELDON MERAZ ([id number]) on 05/09/2021 9:38:48 AM Referred By: BOWEN Confirmed By:JAYY ARAGON MD
[2021-05-07 22:00] LABS: Bedside Glucose 155 mg/dL (70-110)
--- NOTE | 2021-05-07 22:00 | EX.ED.DYSGE1 ---
HPI History of Present Illness Chief Complaint: General Illness Informant: patient and family Onset/Context/Timing Onset: Today Current Severity: Mild Maximum Severity: Mild Narrative Narrative: 61-year-old female long term resident. History of end-stage renal disease dialysis. Gets dialysis Saturday was dialyzed on Saturday for run. She did no longer makes any urine. Prior stroke. Prior mitral valve replacement. History of a pacemaker. DVT on Eliquis. Reportedly from the long term and her son who is at bedside she Had decreased mental status today some confusion off and on. Low blood pressure. Also her oxygen was reportedly 88%. Patient is chronically on oxygen. They deny any fever. They deny any diarrhea. They deny any vomiting. Prior similar symptoms: No Recent Illness/Hospitalization: No PFSH PFSH Medical History Anemia Arthritis Atrial fibrillation CAD (coronary artery disease) Cataract Chest pain CHF (congestive heart failure) CHF exacerbation Chronic pain CKD (chronic kidney disease) CKD (chronic kidney disease) stage V requiring chronic dialysis Depression Diabetes Dialysis patient ESRD (end stage renal disease) ESRD (end stage renal disease) on dialysis Former tobacco use Gallbladder sludge GERD (gastroesophageal reflux disease) Hip pain, left HTN (hypertension) HTN (hypertension) Hyperlipidemia Hyponatremia Hypoxia ICD (implantable cardioverter-defibrillator) in place Myocardial infarct On home oxygen therapy Pacemaker PAF (paroxysmal atrial fibrillation) Pancreatitis TIA (transient ischemic attack) Home Medications atorvastatin 40 mg PO QHS 11/25/20 [History Last Taken 11/24/20] cholecalciferol (vitamin D3) 125 mcg PO DAILY 11/25/20 [History Last Taken 11/24/20] furosemide 80 mg PO DAILY 11/25/20 [History Last Taken 11/24/20] hydralazine 50 mg PO TID 11/25/20 [History Last Taken 11/25/20] hydroxyzine HCl 25 mg PO BID 11/25/20 [History Last Taken 11/25/20] metoprolol succinate 50 mg PO BID 11/25/20 [History Last Taken 11/25/20] omeprazole 40 mg PO QHS 11/25/20 [History Last Taken 11/24/20] Insulin Basal Pump (Pt's Own) [Pump, Basal] 1 unit SUBCUT Q24 #0 08/24/21 [Rx Last Taken Unknown] prochlorperazine maleate [Compazine] 10 mg PO TID PRN #20 tab 12/18/20 [Rx Last Taken Unknown] Acidophilus 2 cap PO DAILY 03/02/21 [History Last Taken Unknown] Eliquis 2.5 mg PO BID 03/02/21 [History Last Taken Unknown] aspirin 81 mg PO DAILY 03/02/21 [History Last Taken Unknown] promethazine 25 mg PO BID 03/02/21 [History Last Taken Unknown] oxycodone 5 mg PO Q6H PRN 5 Days #20 tab 03/03/21 [Rx Last Taken Unknown] albuterol sulfate 2.5 mg INHALATION Q2H PRN 03/22/21 [History Last Taken Unknown] ascorbic acid (vitamin C) 1,000 mg PO DAILY 04/18/21 [History Last Taken Unknown] nutritional supplements 240 ml PO DAILY 04/18/21 [History Last Taken Unknown] ondansetron HCl 4 mg PO Q6H PRN 04/18/21 [History Last Taken Unknown] calcium acetate(phosphat bind) 667 mg PO TIDCM #0 cap 04/24/21 [Rx Last Taken Unknown] bromfenac [BromSite] 1 drp LEFT EYE QHS 05/07/21 [History Last Taken Unknown] gabapentin 100 mg PO TID 05/07/21 [History Last Taken Unknown] ofloxacin 1 drp LEFT EYE 4X/DAY 05/07/21 [History Last Taken Unknown] Allergy/AdvReac Type Severity Reaction Status Date / Time amoxicillin Allergy Hives Verified 05/07/21 21:35 benzonatate Allergy Hives Verified 05/07/21 21:35 [From Tessalon Perles] Cephalosporins Allergy Hives Verified 05/07/21 21:35 clavulanic acid Allergy Hives Verified 05/07/21 21:35 [From Augmentin] lansoprazole [From Prevacid] Allergy Other Verified 05/07/21 21:35 latex Allergy Hives Verified 05/07/21 21:35 meropenem Allergy Hives Verified 05/07/21 21:35 Penicillins Allergy Hives Verified 05/07/21 21:35 silicone AdvReac Hives Verified 05/07/21 21:35 simethicone AdvReac PT UNSURE Verified 05/07/21 21:35 OF REACTION Family History Mother Hypertension Diabetes Heart disease Father Heart disease Hypertension Diabetes Kidney disease Surgical History History of appendectomy History of arteriovenous graft History of heart artery stent History of mitral valve replacement Hx of CABG Social History household members: spouse Smoking Status: Former smoker how long ago did patient quit smoking: Quit 4 years prior, smoked 1 ppd cig tob since teenager. alcohol intake: never substance use type: does not use ROS ROS ED ROS Narrative Denies recent illness. Review of Systems ROS Unobtainable: Denies due to encephalopathy Constitutional Constitutional ED: Denies chills or fever(s) Eyes Eyes: Denies change in vision ENT ENT ED: Denies ear pain Cardiovascular Cardiovascular: Denies chest pain Respiratory/Chest Respiratory/Chest: Reports cough; Denies dyspnea Gastrointestinal Gastrointestinal: Denies abdominal pain Genitourinary Genitourinary ED: Denies dysuria Musculoskeletal Musculoskeletal: Denies myalgias Integumentary Denies rash Neurologic Neurologic: Denies headache(s) Psychiatric Psychiatric: Denies depression Endocrine Endocrinology: Denies polyuria Allergic/Immunologic Allergic/Immunologic ED: Denies urticaria EXAM Physical Exam Narrative Exam Narrative: 61-year-old female no acute distress. Vital signs stable afebrile. Pulse ox 95% on 4 L that is her baseline oxygen. H EENT exam unremarkable atraumatic. Dry mucous membranes. Neck nontender. No lymphadenopathy. No meningismus. Lungs clear to auscultation. Heart regular rhythm rate about 70 no murmur. Chest nontender. Abdomen soft nontender. Normal bowel sounds no peritoneal signs. Moving all 4 extremities. 1+ edema both lower extremities. Dorsi plantar flexion intact. Normal commercial credit head strength. Neurologically she is awake and alert. She knows month and year. She knows she is at the hospital. She is following commands and answering questions. She is moving all 4 extremities. Const Vital Signs: 05/07/21 21:36 Temperature 98.7 F Temperature Source Temporal Pulse Rate 74 Respiratory Rate 22 H Blood Pressure 101/52 L Blood Pressure Mean 68 Pulse Ox 95 Oxygen Delivery Method Nasal Cannula Oxygen Flow Rate (L/min) 4 Positive well nourished and well developed; Negative for cachectic, contractures or unkempt General Appearance ED: well developed and NAD; Negative for unkempt, cachectic, contractures, cyanotic, diaphoretic or pallor Nutritional Appearance: Negative for cachectic HEENT Reports dry mucous membranes Negative for trauma or tenderness Mouth ED: Yes dry mucous membranes Mouth: dry mucous membranes Eyes PERRL and EOMs intact bilaterally General Eye ED: Negative for pale conjunctiva or scleral icterus Neck no lymphadenopathy, supple and no JVD General: Negative for tenderness Chest Wall inspection of chest normal and palpation of chest normal Resp normal respiratory effort and clear to auscultation bilaterally Effort and Inspection: Negative for pain with movement Auscultation: Negative for rales, rhonchi or wheezes Cardio regular rate, regular rhythm, S1 normal heart sound, S2 normal heart sound and no murmurs GI normal to inspection, nondistended, normoactive bowel sounds, non-tender, non-distended and no masses Inspection: Negative for abdominal distention Auscultation: normoactive bowel sounds; Negative for hyperactive bowel sounds Palpation: soft; Negative for tender, guarding or rebound tenderness present Back/Spine no CVA tenderness General Back: Negative for CVA tenderness Cervical Spine: Negative for cervical spine tenderness Thoracic Spine / Upper Back: Negative for thoracic spinal tenderness or paraspinal muscle tenderness Extremity normal to inspection General Extremety ED: Negative for edema or tenderness General Extremity: Negative for edema Neuro oriented x3 Sensorium / Orientation: alert; Negative for orientation impaired, lethargic or stuporous Motor Exam: strength 5/5 throughout Psych mental status grossly normal Appearance: Negative for unkempt Attitude: No agitated Mood & Affect: Negative for depressed or tearful Skin no rashes or lesions noted and no wounds General Skin Exam: Negative for jaundice or pallor MDM MDM MDM Narrative Medical decision making narrative: 61-year-old female with reported hypoxia that resolved when the squad adjusted her pulse ox and put the nasal cannula near her mouth because she is typically breathes through her mouth. Also borderline low blood pressure at the long term. She will undergo work-up. Her exam is benign. She no longer makes urine so urinalysis will not be obtained. Repeat exam patient is doing well at 10:58 PM. She is awake and alert. Vital signs are stable. I went over all test results with both her and her son at bedside. She will be discharged back to the extended care facility and they are comfortable with the plan. Lab Data Attestation: I reviewed the patient's lab results. Lab results narrative: CBC shows a white count of 10. Hemoglobin 8.7 her baseline anemia is normally between 9 and 10. She has chronic anemia from renal failure. Platelets 380. Electrolytes show sodium 131 gap of 8 BUN of 40 creatinine 4.62 again consistent with her chronic renal failure. Liver enzymes are unremarkable. Glucose is 154. CAT scan of her brain showed chronic changes read by the radiologist and reviewed by me. Chest x-ray with chronic changes also. Labs: Laboratory Results - last 24 hr 05/07/21 05/07/21 05/07/21 21:54 22:05 22:05 WBC 10.3 RBC 2.86 L Hgb 8.7 L Hct 28.1 L MCV 98.3 MCH 30.4 MCHC 31.0 L RDW Std Deviation 67.1 H RDW Coeff of Grazyna 18.8 H Plt Count 380 MPV 10.8 Immature Gran % (Auto) 1.200 H Neut % (Auto) 70.0 Lymph % (Auto) 10.4 L [place] % (Auto) 15.1 H Eos % (Auto) 2.3 Baso % (Auto) 1.0 Absolute Neuts (auto) 7.2 Absolute Lymphs (auto) 1.07 Nucleated RBC % 0.3 Sodium 131 L Potassium 4.4 Chloride 95 L Carbon Dioxide 28.0 Anion Gap 8 BUN 40 H Creatinine 4.62 H Estim Creat Clear Calc 12.12 Est GFR (MDRD) Af Amer 12 L Est GFR (MDRD) Non-Af 10 L BUN/Creatinine Ratio 8.7 L Glucose 154 H Calcium 8.1 L Total Bilirubin 0.50 AST 18 ALT 9 L Alkaline Phosphatase 294 H Total Protein 6.9 Albumin 1.9 L Globulin 5.0 H Albumin/Globulin Ratio 0.4 L POC Glucose 155 H Radiography Chest X-Ray - ED: 1 View, Read by ED Physician, Heart, Mediastinum, Bony Structures, Right Effusion and Left Effusion Diagnostic Testing: Clinical Impression(s) from Imaging Studies Brain CT 05/07/21 21:57 IMPRESSION: 1. No evidence of acute intracranial pathology. 2. Diffuse involutional changes and chronic ischemic small vessel white matter disease. Electronically Signed: Sharan House MD at 22:44 EST Tel , Service support , Chest X-Ray 05/07/21 22:25 IMPRESSION: No significant change. Stable airspace disease bilaterally Electronically Signed: Tavon Rivera DO at 22:51 EST Tel , Service support , Chest x-ray, portable, single view interpreted by myself and the radiologist shows chronic changes. Stable cardiomegaly. Prior sternotomy. Left-sided pacemaker. Suspected bilateral small pleural effusion seen on prior x-ray. Rhythm Strip Rhythm Strip: Paced Rate: 72 EKG Initial EKG: Attestation: I personally reviewed and interpreted this EKG as follows: Interpretation: No Acute Injury Pattern and Paced Comments: Paced rhythm rate of 72. No acute signs of ischemia. Discharge Plan Triage Chief Complaint: General Illness ED Provider: Neil Garcia Dx/Rx/DC Orders Clinical Impression: ESRD (end stage renal disease) on dialysis, Anemia, Diabetes, Anticoagulated Prescriptions: No Action furosemide 40 mg Tablet 80 mg PO DAILY RF: 0 atorvastatin 40 mg tablet 40 mg PO QHS RF: 0 metoprolol succinate 50 mg tablet extended release 24 hr 50 mg PO BID RF: 0 omeprazole 40 mg capsule,delayed release(DR/EC) 40 mg PO QHS RF: 0 hydroxyzine HCl 25 mg tablet 25 mg PO BID RF: 0 hydralazine 50 mg tablet 50 mg PO TID RF: 0 cholecalciferol (vitamin D3) 125 mcg (5,000 unit) Capsule 125 mcg PO DAILY RF: 0 Insulin Basal Pump (Pt's Own) [Pump, Basal] 1 unit subcut Q24 Qty: 0 RF: 0 prochlorperazine maleate [Compazine] 10 mg tablet 10 mg PO TID PRN (Reason: nausea and vomiting) Qty: 20 RF: 0 aspirin 81 mg Capsule,Delayed Release(Dr/Ec) 81 mg PO DAILY RF: 0 Acidophilus Capsule 2 cap PO DAILY RF: 0 Eliquis 5 mg tablet 2.5 mg PO BID RF: 0 promethazine 25 mg tablet 25 mg PO BID RF: 0 oxycodone 5 mg tablet 5 mg PO Q6H PRN (Reason: pain) 5 Days Qty: 20 RF: 0 albuterol sulfate 2.5 mg /3 mL (0.083 %) Solution For Nebulization 2.5 mg INHALATION Q2H PRN (Reason: Shortness Of Breath Or Wheezing) RF: 0 nutritional supplements Liquid 240 ml PO DAILY RF: 0 ondansetron HCl 4 mg Tablet 4 mg PO Q6H PRN (Reason: Nausea) RF: 0 ascorbic acid (vitamin C) 1,000 mg Tablet Extended Release 1,000 mg PO DAILY RF: 0 calcium acetate(phosphat bind) 667 mg Capsule 667 mg PO TIDCM Qty: 0 RF: 0 ofloxacin 0.3 % Drops 1 drp LEFT EYE 4X/DAY RF: 0 gabapentin 100 mg Tablet 100 mg PO TID RF: 0 BromSite 0.075 % Drops 1 drp LEFT EYE QHS RF: 0 Primary Care Provider: Jhony Delgado Referrals: Jhony Delgado MD [Primary Care Provider] - 1-2 Days if not improving Activity Restrictions/Additional Instructions: Patient's labs today were unremarkable. She has a chronic baseline anemia from her kidney disease. There were no acute changes on the CAT scan of her brain or chest x-ray. Follow-up with her primary care physician or your medical secretary at your facility if not improving in a day or so. I discussed test results with patient and her son and she met no criteria for admission and will be sent back to the long term. Disposition Disposition: Home, Self Care
[2021-05-07 22:16] LABS: Absolute Lymphocyte Count 1.07 X10^3/uL (0.83-4.51); Absolute Neutrophil Count 7.2 X10^3/uL (2.0-7.7); Eosinophil# 0.24 X10^3/uL; Eosinophils% 2.3 % (0-5); Hematocrit 28.1 % (37-47); Hemoglobin 8.7 g/dL (12.0-15.0); Lymphocyte # 1.07 X10^3/ul (0.83-4.51); Lymphocyte % 10.4 % (19-41); Mean Corpuscular Hgb 30.4 pg (27.0-32.0); Mean Corpuscular Volume 98.3 fL (81-99); Mean Platelet Vol. 10.8 fl (6.2-12.0); Monocyte# 1.55 X10^3/uL; Monocyte% 15.1 % (0-10); NRBC Flagged by Analyzer 0.3 % (0-5); Neutrophil # 7.18 X10^3/uL (2.7-7.7); POSITIVE DIFFERENTIAL YES; POSITIVE MORPHOLOGY YES; Platelet Count 380 K/mm3 (150-450); RBC Distribution Width CV 18.8 % (11.6-14.6); RBC Distribution Width SD 67.1 fl (35.1-43.9); Red Blood Count 2.86 M/mm3 (4.2-5.4); White Blood Count 10.3 K/mm3 (4.4-11.0)
[2021-05-07 22:18] LABS: Differential Indicated SCAN CRITERIA MET
--- NOTE | 2021-05-07 22:25 | RAD_ITS ---
STUDY: X-RAY CHEST REASON FOR EXAM: Female, 61 years old. ms change TECHNIQUE: Single AP portable view of the chest. COMPARISON: 04/18/2021 FINDINGS: Hypoinflated lungs with patchy airspace disease bilaterally. Stable from prior. Continued small effusions. There is mild cardiac enlargement. Stable median sternotomy wires and left chest wall pacing device. Normal mediastinum and damaris. Normal visualized pulmonary arteries. Normal visualized aortic arch and descending thoracic aorta. Normal visualized thoracic spine. Normal visualized ribs, clavicles, and shoulders. There is no demonstrated abnormality of the visualized soft tissue structures of the upper abdomen. RAD/Chest 1 View (Portable) IMPRESSION: No significant change. Stable airspace disease bilaterally Electronically Signed: Tavon Rivera DO at 22:51 EST Tel , Service support ,
[2021-05-07 22:30] LABS: ALB/GLOB Ratio 0.4 RATIO (0.9-2.4); AST(SGOT) 18 U/L (15-37); Alanine Aminotransfer ALT/SGPT 9 U/L (13-56); Albumin, Serum 1.9 g/dL (3.2-5.0); Alkaline Phosphatase 294 U/L (45-117); Anion Gap 8 (5-15); BUN 40 mg/dL (7-18); BUN/Creat Ratio 8.7 RATIO (10-20); Calcium,Total 8.1 mg/dL (8.5-10.1); Chloride 95 mmol/L (98-107); Creatinine, Serum 4.62 mg/dL (0.55-1.02); EST Glomerular Filtration Rate 10 mL/min (>60); Est Glom Filt Rate - Afr Amer 12 mL/min (>60); Estimated Creatinine Clearance 12.12 ml/min; Glucose 154 mg/dL (74-106); Potassium 4.4 mmol/L (3.5-5.1); Protein, Total 6.9 g/dL (6.4-8.2); Sodium Level 131 mmol/L (136-145)
[2021-05-07 22:33] LABS: Anisocytosis 1+; Macrocytosis 1+; Platelet Estimate ADEQUATE (ADEQ); Red Cell Morphology N CHROM NORMAL (NORM C&C)
[2021-05-07 23:04] VITALS: BP 112/47; PULSE 72; RESP 15; O2SAT 94
== END 2021-05-08 00:45 | disposition home or self-care (01) ==
PROVIDERS: Emergency Provider Emergency Medicine; PCP Family Medicine; Visit Provider Emergency Medicine
DX: I95.9 Hypotension, unspecified (principal); I13.2 Hypertensive heart and chronic kidney disease with heart failure and with stage 5 chronic kidney disease, or end stage renal disease; Z99.2 Dependence on renal dialysis; I50.9 Heart failure, unspecified; E11.22 Type 2 diabetes mellitus with diabetic chronic kidney disease; N18.6 End stage renal disease; I48.0 Paroxysmal atrial fibrillation; Z79.4 Long term (current) use of insulin; D64.9 Anemia, unspecified; Z87.891 Personal history of nicotine dependence; I25.10 Atherosclerotic heart disease of native coronary artery without angina pectoris; E78.5 Hyperlipidemia, unspecified; I25.2 Old myocardial infarction; Z79.899 Other long term (current) drug therapy
CPT/HCPCS: 70450; 71045; 80053; 82962; 85025; 87426; 93005; 99285; A4216

== ENCOUNTER 2021-05-08 08:32 | Inpatient (IN) | payer MEDICARE, SELFPAY ==
[2021-05-08] VITALS (10 sets, daily range): BP systolic 89–122; BP diastolic 30–63; PULSE 63–73; RESP 16–18; TEMP 36.3–36.6; O2SAT 94–97; BMI 28.4; BMI 27.0
--- NOTE | 2021-05-08 09:07 | EKG12_ITS ---
Test Reason : Blood Pressure : / mmHG Vent. Rate : 065 BPM Atrial Rate : 065 BPM P-R Int : 208 ms QRS Dur : 148 ms QT Int : 508 ms P-R-T Axes : 002 176 026 degrees QTc Int : 528 ms Atrial-sensed ventricular-paced rhythm with occasional AV dual-paced complexes Abnormal ECG Confirmed by MAHESH RUSSO, JAYY ([id number]), online editor SHELDON MERAZ ([id number]) on 05/09/2021 9:55:00 AM Referred By: Confirmed By:JAYY ARAGON MD
--- NOTE | 2021-05-08 09:07 | RAD_ITS ---
STUDY: X-RAY CHEST REASON FOR EXAM: Female, 61 years old. DYSPNEA TECHNIQUE: Single AP portable view of the chest. COMPARISON: Comparison is made with prior study dated 05/07/2021. FINDINGS: EKG electrodes are seen. Since prior study, there has been progressive infiltrate in the right lower lobe with a right pleural effusion. Stable pleural parenchymal changes at the left lung base. Mild degree of vascular congestion. Sternal cerclage wires are present from a prior sternotomy. A left-sided dual-chamber pacemaker seen. Normal mediastinum and damaris. Normal visualized pulmonary arteries. There is atherosclerotic calcification of the aortic arch with tortuosity. There are diffuse degenerative changes of the visualized thoracic spine. Normal visualized ribs, clavicles, and shoulders. There is no demonstrated abnormality of the visualized soft tissue structures of the upper abdomen. RAD/Chest 1 View (Portable) IMPRESSION: Progressive right lower lobe infiltrate small right pleural effusion. Stable left pleural-parenchymal changes. Mild degree of vascular congestion. Electronically Signed: Micah Zelaya MD at 10:05 EST , Service support ,
--- NOTE | 2021-05-08 09:09 | EX.ED.DYSGE1 ---
HPI History of Present Illness Chief Complaint: Weakness Informant: patient and EMS Narrative Narrative: 61-year-old female multiple medical problems on chronic home oxygen currently residing [facility]. She reportedly went to dialysis today and I was informed by EMS that her blood pressure was too low to begin dialysis. Currently 126/55. She was seen in the emergency department for low oxygen levels last night currently satting 97% on 4 L. She tells me that she keeps falling asleep. She states that she is very tired. PFSH [facility] Medical History Anemia Arthritis Atrial fibrillation CAD (coronary artery disease) Cataract Chest pain CHF (congestive heart failure) CHF exacerbation Chronic pain CKD (chronic kidney disease) CKD (chronic kidney disease) stage V requiring chronic dialysis Depression Diabetes Dialysis patient ESRD (end stage renal disease) ESRD (end stage renal disease) on dialysis Former tobacco use Gallbladder sludge GERD (gastroesophageal reflux disease) Hip pain, left HTN (hypertension) HTN (hypertension) Hyperlipidemia Hyponatremia Hypoxia ICD (implantable cardioverter-defibrillator) in place Myocardial infarct On home oxygen therapy Pacemaker PAF (paroxysmal atrial fibrillation) Pancreatitis TIA (transient ischemic attack) Home Medications atorvastatin 40 mg PO QHS 11/25/20 [History Last Taken 11/24/20] cholecalciferol (vitamin D3) 125 mcg PO DAILY 11/25/20 [History Last Taken 11/24/20] furosemide 40 mg PO BID 11/25/20 [History Last Taken 11/24/20] hydralazine 50 mg PO TID 11/25/20 [History Last Taken 11/25/20] hydroxyzine HCl 25 mg PO TID 11/25/20 [History Last Taken 11/25/20] metoprolol succinate 50 mg PO BID 11/25/20 [History Last Taken 11/25/20] omeprazole 40 mg PO QHS 11/25/20 [History Last Taken 11/24/20] Insulin Basal Pump (Pt's Own) [Pump, Basal] 1 unit SUBCUT Q24 #0 12/06/20 [Rx Last Taken Unknown] prochlorperazine maleate [Compazine] 10 mg PO TID PRN #20 tab 12/18/20 [Rx Last Taken Unknown] Acidophilus 2 cap PO BID 03/02/21 [History Last Taken Unknown] Eliquis 2.5 mg PO BID 03/02/21 [History Last Taken Unknown] aspirin 81 mg PO DAILY 03/02/21 [History Last Taken Unknown] promethazine 25 mg PO BID 03/02/21 [History Last Taken Unknown] oxycodone 5 mg PO Q6H PRN 5 Days #20 tab 03/03/21 [Rx Last Taken Unknown] albuterol sulfate 2.5 mg INHALATION Q2H PRN 03/22/21 [History Last Taken Unknown] ascorbic acid (vitamin C) 1,000 mg PO DAILY 04/18/21 [History Last Taken Unknown] nutritional supplements 240 ml PO DAILY 04/18/21 [History Last Taken Unknown] ondansetron HCl 4 mg PO Q6H PRN 04/18/21 [History Last Taken Unknown] calcium acetate(phosphat bind) 667 mg PO TIDCM #0 cap 04/24/21 [Rx Last Taken Unknown] bromfenac [BromSite] 1 drp LEFT EYE QHS 05/07/21 [History Last Taken Unknown] gabapentin 100 mg PO TID 05/07/21 [History Last Taken Unknown] ofloxacin 1 drp LEFT EYE 4X/DAY 05/07/21 [History Last Taken Unknown] methylprednisolone [Medrol] 4 mg PO DAILY 05/08/21 [History Last Taken Unknown] Allergy/AdvReac Type Severity Reaction Status Date / Time amoxicillin Allergy Hives Verified 05/07/21 21:35 benzonatate Allergy Hives Verified 05/07/21 21:35 [From Tessalon Perles] Cephalosporins Allergy Hives Verified 05/07/21 21:35 clavulanic acid Allergy Hives Verified 05/07/21 21:35 [From Augmentin] lansoprazole [From Prevacid] Allergy Other Verified 05/07/21 21:35 latex Allergy Hives Verified 05/07/21 21:35 meropenem Allergy Hives Verified 05/07/21 21:35 Penicillins Allergy Hives Verified 05/07/21 21:35 silicone AdvReac Hives Verified 05/07/21 21:35 simethicone AdvReac PT UNSURE Verified 05/07/21 21:35 OF REACTION Family History Mother Hypertension Diabetes Heart disease Father Heart disease Hypertension Diabetes Kidney disease Surgical History History of appendectomy History of arteriovenous graft History of heart artery stent History of mitral valve replacement Hx of CABG Social History household members: spouse Smoking Status: Former smoker how long ago did patient quit smoking: Quit 4 years prior, smoked 1 ppd cig tob since teenager. alcohol intake: never substance use type: does not use ROS ROS ED ROS Narrative Fatigue Constitutional Constitutional ED: Denies chills, fever(s) or weight loss Eyes Eyes: Denies change in vision or diplopia ENT ENT ED: Denies ear pain, rhinorrhea or sore throat Cardiovascular Cardiovascular: Denies chest pain, orthopnea, palpitations or racing heartbeat Respiratory/Chest Respiratory/Chest: Reports cough and dyspnea; Denies orthopnea Gastrointestinal Gastrointestinal: Denies abdominal pain, diarrhea, nausea or vomiting Genitourinary Genitourinary ED: Reports other Details: Does not make urine Musculoskeletal Musculoskeletal: Denies arthralgias or myalgias Integumentary Denies abscess or rash Neurologic Neurologic: Reports weakness; Denies headache(s) Psychiatric Psychiatric: Denies anxiety, depression, suicidal ideation or suicidal thoughts Endocrine Endocrinology: Denies polydipsia, polyphagia or polyuria Allergic/Immunologic Allergic/Immunologic ED: Denies mouth swelling, tongue swelling or urticaria EXAM Physical Exam Const Vital Signs: 05/08/21 08:32 05/08/21 10:15 05/08/21 12:01 Temperature 97.4 F L Temperature Source Oral Pulse Rate 66 65 63 Respiratory Rate 18 18 18 Blood Pressure 98/55 L 103/54 L 101/60 Blood Pressure Mean 69 70 73 Pulse Ox 95 94 97 Oxygen Delivery Method Nasal Cannula Nasal Cannula Nasal Cannula Oxygen Flow Rate (L/min) 3 3 Positive well nourished and well developed General Appearance ED: well developed HEENT Reports normocephalic, head/scalp atraumatic, TM's clear and moist mucous membranes Negative for trauma Tympanic Membrane ED: Yes TM's clear Eyes PERRL and EOMs intact bilaterally Neck no lymphadenopathy, supple and no JVD Resp normal respiratory effort and clear to auscultation bilaterally Cardio regular rate, regular rhythm and no murmurs GI normal to inspection, nondistended, normoactive bowel sounds and non-tender Palpation: soft Back/Spine no CVA tenderness and normal ROM Extremity normal to inspection General Extremety ED: Negative for edema General Extremity: Negative for edema Neuro oriented x3 Sensorium / Orientation: alert Psych Mood & Affect: depressed; Negative for tearful Skin no rashes or lesions noted and no wounds MDM MDM MDM Narrative Medical decision making narrative: There appears to be a new infiltrate on chest x-ray on the right side compared to last night's test on my interpretation. White count is now slightly elevated 12.5. Ammonia level 36 creatinine 5.34 potassium 5.5. Phosphorus 4.8. Lactic acid is normal at 2 blood cultures were obtained and the patient received Levaquin and vancomycin. She is on 4 L nasal cannula currently. Lab Data Attestation: I reviewed the patient's lab results. Labs: Laboratory Results - last 24 hr 05/08/21 05/08/21 05/08/21 09:40 09:40 09:40 WBC 12.5 H RBC 2.94 L Hgb 9.2 L Hct 28.6 L MCV 97.3 MCH 31.3 MCHC 32.2 RDW Std Deviation 65.4 H RDW Coeff of Grazyna 18.9 H Plt Count 387 MPV 11.2 Immature Gran % (Auto) 1.000 H Neut % (Auto) 68.4 Lymph % (Auto) 9.7 L Hemphill % (Auto) 16.2 H Eos % (Auto) 3.5 Baso % (Auto) 1.2 H Absolute Neuts (auto) 8.6 H Absolute Lymphs (auto) 1.21 Nucleated RBC % 0.2 Differential Comment COMMENT Diff Path Review May foll Anisocytosis 1+ Sodium 129 L Potassium 5.5 H Chloride 91 L Carbon Dioxide 29.0 Anion Gap 9 BUN 44 H Creatinine 5.34 H Estim Creat Clear Calc 11.27 Est GFR (MDRD) Af Amer 10 L Est GFR (MDRD) Non-Af 9 L BUN/Creatinine Ratio 8.2 L Glucose 118 H Lactic Acid Calcium 8.9 Phosphorus 4.8 Magnesium 2.4 Total Bilirubin 0.70 Direct Bilirubin 0.25 AST 52 H ALT 13 Alkaline Phosphatase 390 H Ammonia 36.0 H Total Protein 7.9 Albumin 2.1 L Globulin 5.8 H POC Glucose 05/08/21 05/08/21 10:35 12:34 WBC RBC Hgb Hct MCV MCH MCHC RDW Std Deviation RDW Coeff of Grazyna Plt Count MPV Immature Gran % (Auto) Neut % (Auto) Lymph % (Auto) Hemphill % (Auto) Eos % (Auto) Baso % (Auto) Absolute Neuts (auto) Absolute Lymphs (auto) Nucleated RBC % Differential Comment Diff Path Review Anisocytosis Sodium Potassium Chloride Carbon Dioxide Anion Gap BUN Creatinine Estim Creat Clear Calc Est GFR (MDRD) Af Amer Est GFR (MDRD) Non-Af BUN/Creatinine Ratio Glucose Lactic Acid 2.0 Calcium Phosphorus Magnesium Total Bilirubin Direct Bilirubin AST ALT Alkaline Phosphatase Ammonia Total Protein Albumin Globulin POC Glucose 56 L Radiography Diagnostic Testing: Clinical Impression(s) from Imaging Studies Chest X-Ray 05/08/21 09:07 IMPRESSION: Progressive right lower lobe infiltrate small right pleural effusion. Stable left pleural-parenchymal changes. Mild degree of vascular congestion. Electronically Signed: Micah Zelaya MD at 10:05 EST , Service support , EKG Initial EKG: Attestation: I personally reviewed and interpreted this EKG as follows: Comments: Paced rhythm with a ventricular rate of 65 bpm Discharge Plan Dx/Rx/DC Orders Clinical Impression: ESRD (end stage renal disease) on dialysis, Anemia, Pneumonia, Chronic respiratory failure, Acute hypotension Disposition Disposition: [facility]
[2021-05-08 09:47] LABS: Absolute Lymphocyte Count 1.21 X10^3/uL (0.83-4.51); Absolute Neutrophil Count 8.6 X10^3/uL (2.0-7.7); Basophil# 0.15 X10^3/uL; Basophil% 1.2 % (0-1); Eosinophil# 0.44 X10^3/uL; Eosinophils% 3.5 % (0-5); Hematocrit 28.6 % (37-47); Hemoglobin 9.2 g/dL (12.0-15.0); Lymphocyte # 1.21 X10^3/ul (0.83-4.51); Lymphocyte % 9.7 % (19-41); Mean Corp Hgb Conc 32.2 g/dL (32-36); Mean Corpuscular Hgb 31.3 pg (27.0-32.0); Mean Corpuscular Volume 97.3 fL (81-99); Mean Platelet Vol. 11.2 fl (6.2-12.0); Monocyte# 2.02 X10^3/uL; Monocyte% 16.2 % (0-10); NRBC Flagged by Analyzer 0.2 % (0-5); Neutrophil # 8.55 X10^3/uL (2.7-7.7); Neutrophil % 68.4 % (47-70); POSITIVE DIFFERENTIAL YES; POSITIVE MORPHOLOGY YES; Platelet Count 387 K/mm3 (150-450); RBC Distribution Width CV 18.9 % (11.6-14.6); RBC Distribution Width SD 65.4 fl (35.1-43.9); Red Blood Count 2.94 M/mm3 (4.2-5.4); White Blood Count 12.5 K/mm3 (4.4-11.0)
[2021-05-08 09:50] LABS: Differential Indicated SCAN CRITERIA MET
[2021-05-08 10:17] LABS: AST(SGOT) 52 U/L (15-37); Alanine Aminotransfer ALT/SGPT 13 U/L (13-56); Albumin, Serum 2.1 g/dL (3.2-5.0); Alkaline Phosphatase 390 U/L (45-117); Anion Gap 9 (5-15); BUN 44 mg/dL (7-18); BUN/Creat Ratio 8.2 RATIO (10-20); Bilirubin, Direct 0.25 mg/dL (0.00-0.30); Calcium,Total 8.9 mg/dL (8.5-10.1); Chloride 91 mmol/L (98-107); Creatinine, Serum 5.34 mg/dL (0.55-1.02); EST Glomerular Filtration Rate 9 mL/min (>60); Est Glom Filt Rate - Afr Amer 10 mL/min (>60); Estimated Creatinine Clearance 11.27 ml/min; Globulin 5.8 g/dL (2.2-4.2); Glucose 118 mg/dL (74-106); Magnesium 2.4 mg/dL (1.6-2.6); Phosphorus 4.8 mg/dL (2.5-4.9); Potassium 5.5 mmol/L (3.5-5.1); Protein, Total 7.9 g/dL (6.4-8.2); Sodium Level 129 mmol/L (136-145)
[2021-05-08] MEDS: levoFLOXacin IV 750 MG/150 ML BAG 100 MG IV (10:51)
[2021-05-08 10:59] LABS: Anisocytosis 1+
[2021-05-08 12:41] LABS: Bedside Glucose 56 mg/dL (70-110)
--- NOTE | 2021-05-08 12:50 | PCM.HP.STD ---
HPI - General General Date of Admission: 05/08/21 Date of Service: 05/08/21 Chief Complaint: Low BP at HD, could not have HD, dyspnea. HPI Narrative The patient is a 61 y/o F w/ PMHx: PAF, CAD s/p CABG and PCI, PAD, AOCD/Chronic anemia, ESRD on HD following w/ Dr. Manrique, Valvular Heart Disease s/p MVR, Chronic Diastolic CHF, HTN, HLD, GERD, recent admission 04/18/21-04/24/21 for pneumonia with chronic respiratory failure (2-4L NC chronically) treated with CT scan with atypical pneumonia with vanc and levaquin eventually transitioned to levaquin at discharge who was again seen 05/07/21 evening secondary to dyspnea with CXR at that time improved; however, now she re-presents to the [facility] ED on 05/08/21 with increasing fatigue, malaise, recently low BP at HD with HD deferred secondary to her low blood pressures with complaint of dyspnea which is worsening. Work-up in the ED include T 97.4, heart rate 66 initially P 90/55 with most recent repeat 101/60, respiratory rate 18, 95% on 3 L nasal cannula, CBC with WC 12.5, hemoglobin 9.2, platelets 327 with left shift, CMP with sodium 129, potassium 5.5 with moderate hemolysis, chloride 91, BUN/44/5.43, glucose 118, lactic acid 2.0, AST/LT 52/13, alk phos 390, ammonia 36 otherwise not marked appearing, chest x-ray with progressive right lower lobe infiltrate with a small right pleural effusion with stable left pleural-parenchymal changes, mild degree vascular congestion, negative Covid rapid antigen, EKG with paced rhythm with no acute evidence of ischemia. In the ED patient ministered D5 amp as well as Levaquin 750 mg IV x1. [facility] Medical History Anemia Arthritis Atrial fibrillation CAD (coronary artery disease) Cataract Chest pain CHF (congestive heart failure) CHF exacerbation Chronic pain CKD (chronic kidney disease) CKD (chronic kidney disease) stage V requiring chronic dialysis Depression Diabetes Dialysis patient ESRD (end stage renal disease) ESRD (end stage renal disease) on dialysis Former tobacco use Gallbladder sludge GERD (gastroesophageal reflux disease) Hip pain, left HTN (hypertension) HTN (hypertension) Hyperlipidemia Hyponatremia Hypoxia ICD (implantable cardioverter-defibrillator) in place Myocardial infarct On home oxygen therapy Pacemaker PAF (paroxysmal atrial fibrillation) Pancreatitis TIA (transient ischemic attack) Home Medications atorvastatin 40 mg PO QHS 11/25/20 [History Last Taken 11/24/20] cholecalciferol (vitamin D3) 125 mcg PO DAILY 11/25/20 [History Last Taken 11/24/20] furosemide 40 mg PO BID 11/25/20 [History Last Taken 11/24/20] hydralazine 50 mg PO TID 11/25/20 [History Last Taken 11/25/20] hydroxyzine HCl 25 mg PO TID 11/25/20 [History Last Taken 11/25/20] metoprolol succinate 50 mg PO BID 11/25/20 [History Last Taken 11/25/20] omeprazole 40 mg PO QHS 11/25/20 [History Last Taken 11/24/20] Insulin Basal Pump (Pt's Own) [Pump, Basal] 1 unit SUBCUT Q24 #0 12/06/20 [Rx Last Taken Unknown] prochlorperazine maleate [Compazine] 10 mg PO TID PRN #20 tab 12/18/20 [Rx Last Taken Unknown] Acidophilus 2 cap PO BID 03/02/21 [History Last Taken Unknown] Eliquis 2.5 mg PO BID 03/02/21 [History Last Taken Unknown] aspirin 81 mg PO DAILY 03/02/21 [History Last Taken Unknown] promethazine 25 mg PO BID 03/02/21 [History Last Taken Unknown] oxycodone 5 mg PO Q6H PRN 5 Days #20 tab 03/03/21 [Rx Last Taken Unknown] albuterol sulfate 2.5 mg INHALATION Q2H PRN 03/22/21 [History Last Taken Unknown] ascorbic acid (vitamin C) 1,000 mg PO DAILY 04/18/21 [History Last Taken Unknown] nutritional supplements 240 ml PO DAILY 04/18/21 [History Last Taken Unknown] ondansetron HCl 4 mg PO Q6H PRN 04/18/21 [History Last Taken Unknown] calcium acetate(phosphat bind) 667 mg PO TIDCM #0 cap 04/24/21 [Rx Last Taken Unknown] bromfenac [BromSite] 1 drp LEFT EYE QHS 05/07/21 [History Last Taken Unknown] gabapentin 100 mg PO TID 05/07/21 [History Last Taken Unknown] ofloxacin 1 drp LEFT EYE 4X/DAY 05/07/21 [History Last Taken Unknown] methylprednisolone [Medrol] 4 mg PO DAILY 05/08/21 [History Last Taken Unknown] Allergy/AdvReac Type Severity Reaction Status Date / Time amoxicillin Allergy Hives Verified 05/07/21 21:35 benzonatate Allergy Hives Verified 05/07/21 21:35 [From Tessalon Perles] Cephalosporins Allergy Hives Verified 05/07/21 21:35 clavulanic acid Allergy Hives Verified 05/07/21 21:35 [From Augmentin] lansoprazole [From Prevacid] Allergy Other Verified 05/07/21 21:35 latex Allergy Hives Verified 05/07/21 21:35 meropenem Allergy Hives Verified 05/07/21 21:35 Penicillins Allergy Hives Verified 05/07/21 21:35 silicone AdvReac Hives Verified 05/07/21 21:35 simethicone AdvReac PT UNSURE Verified 05/07/21 21:35 OF REACTION Family History Mother Hypertension Diabetes Heart disease Father Heart disease Hypertension Diabetes Kidney disease Surgical History History of appendectomy History of arteriovenous graft History of heart artery stent History of mitral valve replacement Hx of CABG Social History (Updated 05/08/21 @ 15:[address] Daiana Guajardo MD) housing: [facility] Smoking Status: Former smoker how long ago did patient quit smoking: Quit 4 years prior, smoked 1 ppd cig tob since teenager. alcohol intake: never substance use type: does not use ROS ROS Narrative Admission Review of Systems: CONSTITUTIONAL: No weight loss, fever, chills, + weakness or fatigue. HEENT: Eyes: No visual loss, blurred vision, double vision or yellow sclerae. Ears, Nose, Throat: No hearing loss, sneezing, congestion, runny nose or sore throat. SKIN: + Ecchymoses, No rash or itching, lesions, wounds. CARDIOVASCULAR: No chest pain, chest pressure or chest discomfort, palpitations, edema, orthopnea, syncopal events. RESPIRATORY: + Shortness of breath, cough without marked sputum, No wheezing, hemoptysis. GASTROINTESTINAL: No anorexia, nausea, vomiting or diarrhea, abdominal pain, melena, BRBPR. GENITOURINARY: No dysuria, frequency, urgency or retention. NEUROLOGICAL: + increased fatigue/lethargy, No headache, dizziness, syncope, paralysis, ataxia, focal weakness, change in bowel or bladder control, seizure. MUSCULOSKELETAL: + muscle, back pain, joint pain or stiffness. HEMATOLOGIC: + anemia, bleeding or bruising. LYMPHATICS: No enlarged nodes. No history of splenectomy. PSYCHIATRIC: + history of depression or anxiety. ENDOCRINOLOGIC: No reports of sweating, cold or heat intolerance. No polyuria or polydipsia. ALLERGIES: No history of asthma, hives, eczema or rhinitis. Vital Signs Vital Signs Vital Signs: 05/08/21 08:32 05/08/21 10:15 05/08/21 12:01 Temperature 97.4 F L Temperature Source Oral Pulse Rate 66 65 63 Respiratory Rate 18 18 18 Blood Pressure 98/55 L 103/54 L 101/60 Blood Pressure Mean 69 70 73 Pulse Ox 95 94 97 Oxygen Delivery Method Nasal Cannula Nasal Cannula Nasal Cannula Oxygen Flow Rate (L/min) 3 3 Weight Weight: 192 lb 10.944 oz Body Mass Index (BMI) 28.4 Physical Exam Narrative Physical Examination: General: Awake, alert, oriented x 3 and cooperative, laying in the ED bed, fatigued, mildly ill-appearing, no respiratory distress. Skin: Normal color, normal turgor, no icterus, no cyanosis except for staged ecchymoses. HEENT: AT/NC, EOMI, PERRLA, mildly dry MM, no carotid bruits or JVD noted. Lungs: Diminished, greater bases, mildly decreased effort, mildly increased respiratory rate but no evidence of any distress, coarse, no rales, ronchi or wheezing. Heart: Regular rate and rhythm; no gallop, rub audible, + SM. Abdomen: Soft, overweight, NTTP, ND, distant normal BS, no marked HSM. Extremities: No cyanosis, no clubbing, mild pedal to distal damian edema, 1-2+, some green discoloration of feet which she knows is secondary to skilled facility usage of Biofreeze for discomfort. Neurological: Patient awake, alert, oriented as noted, cognitive function intact; pupils equally reactive to light and accommodation, cranial nerves II-XII grossly normal, moving all 4 extremities, strength severely global decreased. Psychiatric: Affect appears fatigued, ill-appearing, no respiratory distress noted, no acute evidence of depressive or anxiety feelings. Results Lab / Micro Data Result Diagrams: 05/08/21 09:40 05/08/21 09:40 Labs: Laboratory Results - last 24 hr 05/08/21 09:40: WBC 12.5 H, RBC 2.94 L, Hgb 9.2 L, Hct 28.6 L, MCV 97.3, MCH 31.3, MCHC 32.2, RDW Std Deviation 65.4 H, RDW Coeff of Grazyna 18.9 H, Plt Count 387, MPV 11.2, Immature Gran % (Auto) 1.000 H, Neut % (Auto) 68.4, Lymph % (Auto) 9.7 L, Elbert % (Auto) 16.2 H, Eos % (Auto) 3.5, Baso % (Auto) 1.2 H, Absolute Neuts (auto) 8.6 H, Absolute Lymphs (auto) 1.21, Nucleated RBC % 0.2, Differential Comment COMMENT, Diff Path Review May foll, Anisocytosis 1+ 05/08/21 09:40: Sodium 129 L, Potassium 5.5 H, Chloride 91 L, Carbon Dioxide 29.0, Anion Gap 9, BUN 44 H, Creatinine 5.34 H, Estim Creat Clear Calc 11.27, Est GFR (MDRD) Af Amer 10 L, Est GFR (MDRD) Non-Af 9 L, BUN/Creatinine Ratio 8.2 L, Glucose 118 H, Calcium 8.9, Phosphorus 4.8, Magnesium 2.4, Total Bilirubin 0.70, Direct Bilirubin 0.25, AST 52 H, ALT 13, Alkaline Phosphatase 390 H, Total Protein 7.9, Albumin 2.1 L, Globulin 5.8 H 05/08/21 09:40: Ammonia 36.0 H 05/08/21 10:35: Lactic Acid 2.0 05/08/21 12:34: POC Glucose 56 L Micro: Microbiology 05/08/21 10:35 Nasal Secretion SARS-CoV-2 Antigen (Rapid) - Final Radiology Impression Chest X-Ray 05/08/21 09:07 IMPRESSION: Progressive right lower lobe infiltrate small right pleural effusion. Stable left pleural-parenchymal changes. Mild degree of vascular congestion. Electronically Signed: Micah Zelaya MD at 10:05 EST , Service support , Assessment & Plan Assessment/Plan (1) Pneumonia: QUALIFIERS: Pneumonia type: due to unspecified organism Laterality: unspecified laterality Lung location: unspecified part of lung Qualified Code(s): J18.9 - Pneumonia, unspecified organism (2) Chronic respiratory failure: QUALIFIERS: Respiratory failure complication: hypoxia Qualified Code(s): J96.11 - Chronic respiratory failure with hypoxia (3) Acute hypotension: PLAN: The patient is a 61 y/o F w/ PMHx: Diabetes mellitus type II, PAF, CAD s/p CABG and PCI, PAD, AOCD/Chronic anemia, ESRD on HD following w/ Dr. Manrique, Valvular Heart Disease s/p MVR, Chronic Diastolic CHF, HTN, HLD, GERD, recent admission 04/18/21-04/24/21 for pneumonia with chronic respiratory failure (2-4L NC chronically) treated with CT scan with atypical pneumonia with vanc and levaquin eventually transitioned to levaquin at discharge who was again seen 05/07/21 evening secondary to dyspnea with CXR at that time improved; however, now she re-presents to the [facility] ED on 05/08/21 with increasing fatigue, malaise, recently low BP at HD with HD deferred secondary to her low blood pressures with complaint of dyspnea which is worsening. #1. Adult FTT secondary to Acute ? Recurrent Pneumonia, RLL with small R pleural effusion with Chronic Hypoxic Respiratory Failure (2-4L NC) with Hypotension with possible mild component #2: Will admit to [facility], maintain on oxygen with wean as tolerated to home oxygen supplementation, continue ATC duonebs, PRN albuterol, maintained on IV Levaquin and Vancomycin given allergies with alteration as able, ID consulted given serial admissions with PNA diagnosis, HOB, IS parameters w/ pending sputum cultures and urine antigens if able to given urine sample although notes she has not made much since her prior admission discharge. Bld cx x 2 obtained in the ED. #2. Chronic diastolic CHF w/ potential mild exacerbation/overload secondary to Missed HD: 11/25/2020 echocardiogram with normal LV systolic function, EF 55%, mildly dilated RV, mild global RV systolic dysfunction, moderately enlarged RA, stable appearing bioprosthetic MV apparatus, trivial transvalvular insufficiency of the mitral valve, moderate TVI, mild TVI, RVSP 45 mmHg. Continue aspirin, low-dose Eliquis, statin, holding HTN regimen given hypotensive presentation, add back once appropriate. Nephrology consulted for potential HD with midodrine started. Consider diuretics if able if unable to perform HD today if BP allows; however, will need to monitor for UOP as has decreased since last presentation. #3. Hx CVA: Prior visit 11/2020 with TIA, CT with noted age-indeterminate infarcts in the right parietal lobe and bilaterally in the cerebellum, unable to have MRI given pacer status, continue asa, low dose eliquis, statin, holding HTN regimen secondary to hypotensive presentation as noted, add back once appropriate. #4. ESRD: Patient on hemodialysis, AVF in place, following with Dr. Manrique during most recent visit and prior noted Dr. Mohan, dialysis normally MWF with HD unable to be performed on day of presentation secondary to low BP, adding midodrine based on last admission Nephrology recommendation and holding HTN regimen. #5. CAD, PAD: Status post prior CABG and PCI, will continue patient asa, low-dose Eliquis, statin therapy, holding hypertensive regimen given presentation with hypotension as noted, add back once appropriate. #6. Valvular heart disease: Patient status post MVR, echo as noted above. #7. Hypertension: Holding home hypertensive regimen given presentation with hypotension, adding midodrine based on prior admission recommendation via nephrology. #8. Hyperlipidemia: Continue home statin regimen. #9. Chronic normocytic anemia/AOCD: Admission hemoglobin 9.2, baseline prior 9-10, stable, trend. #10. PAF: We will continue patient home low-dose Eliquis regimen, holding home metoprolol regimen given hypotension. Add back once appropriate. #11. Diabetes mellitus type II: We will continue home insulin regimen, ADA diet, accu checks w/ ISS if able to via home machine versus subacute necessary. #12 GERD: We will continue patient home PPI. #13. DVT prophylaxis: SCDs, continue home eliquis regimen. #14. CODE status: Patient does not have HCPOA or LW in place. Discussed CODE status at length including difference between FULL code, DNR-CCA and DNR-CC status. Following discussions about the differences in these status, requested DNR-CCA, no intubation status. Advanced Care Planning Face to Face Time: 16 minutes. Charges/Coding Visit Charges Inpatient E&M: 72762 Init Hosp L3 Procedures Hospitalists Procedures: [id number] Advncd Care Plan 30 Min
[2021-05-08] MEDS: Dextrose 50%-Water 25 GM/50 ML DISP.SYRIN IV (12:52)
--- NOTE | 2021-05-08 13:37 | NURSING ---
[address] WHITE PNA, RESP FAILURE, MISSED HD WITH HYPOTENSION
--- NOTE | 2021-05-08 14:30 | CASEMGMT ---
ER RNCM Re-Admission Note: Patient admitted 04/18-04/24/21 for PNA and DC'd back to [place]- There Short term for rehab. HD M/W/F. Admitted today for PNA, Resp Failure, Missed HD w/hypotension. Plan to return to [place]. Patient was resting upon entering room, easily aroused but appeared with confusion. OLINDA MartinezCM
[2021-05-08 14:42] LABS: Reflex Lactate? Y
[2021-05-08] MEDS: Gabapentin 100 MG Capsule PO ×2 (15:45→20:49)
[2021-05-08] MEDS: hydrOXYzine PAM 25 MG Capsule PO ×2 (15:45→20:49)
--- NOTE | 2021-05-08 16:01 | PCM.RX.CS ---
Consult Pharmacy has been consulted to manage selected antiobiotic: Vancomycin Type of Consult: New start Suspected Infection: Pneumonia Prior Doses of Antibiotics Received/Current Regimen: VANCOMYCIN 2000 MG IV X 1 DOSE Labs: Sodium 129 mmol/L (136-145) L 05/08/21 09:40 Potassium 5.5 mmol/L (3.5-5.1) H 05/08/21 09:40 Chloride 91 mmol/L (98-107) L 05/08/21 09:40 Carbon Dioxide 29.0 mmol/L (21.0-32.0) 05/08/21 09:40 Anion Gap 9 (5-15) 05/08/21 09:40 BUN 44 mg/dL (7-18) H 05/08/21 09:40 Creatinine 5.34 mg/dL (0.55-1.02) H 05/08/21 09:40 Est GFR (MDRD) Af Amer 10 mL/min (>60) L 05/08/21 09:40 Est GFR (MDRD) Non-Af 9 mL/min (>60) L 05/08/21 09:40 BUN/Creatinine Ratio 8.2 RATIO (10-20) L 05/08/21 09:40 Glucose 118 mg/dL (74-106) H 05/08/21 09:40 Microbiology: Microbiology 05/08/21 10:35 Nasal Secretion SARS-CoV-2 Antigen (Rapid) - Final Weight used for dosin.4 kg Estimated Creatinine Clearance: 11.27 Goal Trough: 15-20 mcg/mL Pharmacy Plan for Drug Dosing: RANDOM VANCOMYCIN LEVEL ORDERED FOR 05/10/21 AT 0500 Pharmacy Service will continue to monitor and adjust dosing as required. Follow-Up Labs: Trough Other - VANCOMYCIN RANDOM
[2021-05-08 16:15] LABS: Bedside Glucose 65 mg/dL (70-110)
--- NOTE | 2021-05-08 16:58 | NURSING ---
Need to call endocrinology office Dr. Gregory? Jess Balderrama ?[phone]
[2021-05-08] MEDS: Lactulose 20 GM/30 ML UDC 10 GM PO (17:34)
[2021-05-08] MEDS: Midodrine HCl 5 MG Tablet 10 MG PO (17:37)
[2021-05-08] MEDS: oxyCODONE 5 MG Tablet PO (17:42)
--- NOTE | 2021-05-08 19:53 | PCS.PANDOC ---
PANDEMIC DOCUMENTATION INITIATED: Date: 11/28/2020 Time: 190
[2021-05-08] MEDS: 0.9% Saline Lock 10 ML Syringe IV (20:48)
[2021-05-08] MEDS: Ondansetron 4 MG/2 ML Vial IV (20:48)
[2021-05-08] MEDS: Acetaminophen 325 MG Tablet 650 MG PO (20:48)
[2021-05-08] MEDS: APIXABAN 2.5 MG TABLET PO (20:49)
[2021-05-08] MEDS: Pantoprazole Sodium 40 MG Tablet PO (20:49)
[2021-05-08] MEDS: Atorvastatin Calcium 40 MG Tablet PO (20:54)
[2021-05-08 20:56] LABS: Bedside Glucose 141 mg/dL (70-110)
[2021-05-09 02:50] VITALS: BP 119/46; PULSE 65; RESP 18; TEMP 36.5; O2SAT 96
[2021-05-09] MEDS: Acetaminophen 325 MG Tablet 650 MG PO ×4 (02:58→22:58)
[2021-05-09] MEDS: oxyCODONE 5 MG Tablet PO ×4 (02:59→22:58)
[2021-05-09] MEDS: Gabapentin 100 MG Capsule PO ×3 (05:27→20:53)
[2021-05-09] MEDS: hydrOXYzine PAM 25 MG Capsule PO ×3 (05:27→20:57)
[2021-05-09 05:31] LABS: Bedside Glucose 169 mg/dL (70-110)
[2021-05-09] MEDS: Insulin Lispro 100 UNIT/ML INSULN.PEN SC ×4 (05:32→20:53)
[2021-05-09 07:59] VITALS: BP 126/47; PULSE 71; RESP 16; TEMP 36.3; O2SAT 96
[2021-05-09] MEDS: 0.9% Saline Lock 10 ML Syringe IV (08:38)
[2021-05-09 08:44] LABS: Absolute Lymphocyte Count 0.94 X10^3/uL (0.83-4.51); Basophil# 0.11 X10^3/uL; Basophil% 0.8 % (0-1); Eosinophil# 0.55 X10^3/uL; Eosinophils% 3.9 % (0-5); Hematocrit 28.9 % (37-47); Hemoglobin 9.1 g/dL (12.0-15.0); Lymphocyte # 0.94 X10^3/ul (0.83-4.51); Lymphocyte % 6.7 % (19-41); Mean Corp Hgb Conc 31.5 g/dL (32-36); Mean Corpuscular Hgb 30.6 pg (27.0-32.0); Mean Corpuscular Volume 97.3 fL (81-99); Mean Platelet Vol. 10.9 fl (6.2-12.0); Monocyte# 2.09 X10^3/uL; NRBC Flagged by Analyzer 0.1 % (0-5); Neutrophil # 10.03 X10^3/uL (2.7-7.7); POSITIVE DIFFERENTIAL YES; POSITIVE MORPHOLOGY YES; Platelet Count 379 K/mm3 (150-450); RBC Distribution Width CV 18.5 % (11.6-14.6); RBC Distribution Width SD 65.1 fl (35.1-43.9); Red Blood Count 2.97 M/mm3 (4.2-5.4); White Blood Count 13.9 K/mm3 (4.4-11.0)
[2021-05-09 08:46] LABS: Differential Indicated SCAN CRITERIA MET
[2021-05-09 09:07] LABS: ALB/GLOB Ratio 0.4 RATIO (0.9-2.4); AST(SGOT) 24 U/L (15-37); Alanine Aminotransfer ALT/SGPT 11 U/L (13-56); Alkaline Phosphatase 368 U/L (45-117); Anion Gap 10 (5-15); BUN 51 mg/dL (7-18); BUN/Creat Ratio 8.9 RATIO (10-20); Calcium,Total 8.2 mg/dL (8.5-10.1); Chloride 91 mmol/L (98-107); Creatinine, Serum 5.73 mg/dL (0.55-1.02); EST Glomerular Filtration Rate 8 mL/min (>60); Est Glom Filt Rate - Afr Amer 10 mL/min (>60); Glucose 139 mg/dL (74-106); Potassium 4.8 mmol/L (3.5-5.1); Sodium Level 130 mmol/L (136-145)
[2021-05-09 09:54] LABS: Anisocytosis RARE; Hypochromasia 1+; Polychromasia 1+
[2021-05-09] MEDS: APIXABAN 2.5 MG TABLET PO ×2 (09:54→20:53)
[2021-05-09] MEDS: Polyethylene Glycol 3350 17 GM PACKET PO (09:54)
[2021-05-09] MEDS: Midodrine HCl 5 MG Tablet 10 MG PO ×3 (09:55→16:55)
[2021-05-09] MEDS: Ascorbic Acid 500 MG Tablet 1000 MG PO (09:55)
[2021-05-09] MEDS: Aspirin E.C. 81 MG Tablet PO (09:55)
[2021-05-09] MEDS: Cholecalciferol (VIT D3) 25 MCG TABLET (1,000 UNITS) 125 MCG PO (09:55)
[2021-05-09] MEDS: Calcium Acetate 667 MG Capsule PO ×2 (09:55→17:39)
--- NOTE | 2021-05-09 10:31 | NURSING ---
Addendum entered by Christy Molina 05/09/21 14:55: basal rates for insulin pump: 0000 basal 0.55, 0830 basal 1.10, 1500 basal 0.7, 1800 basal 1.3, 1900 basal 1.0 Original Note: left message for Jess Balderrama Endocrinology requesting return phone call regarding insulin dosage
--- NOTE | 2021-05-09 10:57 | CON.PCM.ID_ITS ---
Assessment & Plan Assessment/Plan (1) ESRD (end stage renal disease) on dialysis: (2) Pneumonia: QUALIFIERS: Pneumonia type: due to unspecified organism Laterality: unspecified laterality Lung location: unspecified part of lung Qualified Code(s): J18.9 - Pneumonia, unspecified organism PLAN: Not clear that there is a new pneumonia. Does have some cxr changes, but no new hypoxia (on baseline 3L NC), no new respiratory symptoms, no fever or chills. Wbc mildly up. Primary complaint is severe progressive burning pain in both feet. No prior h/o gout, no wounds seen. Was recently started on low dose gabapentin. Ok to keep levaquin for now, will stop vanc. Suggest titrating up dose of neurontin. Will follow, thank you (3) Neuropathy: HPI Consult Data Date of Consult: 05/09/21 HPI Narrative HPI Narrative: KENYATTA BARROW, is a 61 F with ESRD, HD MWF via RUE fistula. Had normal HD 05/05. Recent admit for pneumonia, discharged 04/24 to complete course of levaquin. Has felt progressively worse since then. Is on 3L NC at baseline. Primary complaint is worsening burning pain in feet. Some fatigue. Cough and dyspnea is at baseline, no sputum. No fever or chills. Has had covid vaccine x3, no sick contacts. Came to ED, admitted on vanc/levaquin. Full ROS performed and neg except as noted above. [facility] Medical History Anemia Arthritis Atrial fibrillation CAD (coronary artery disease) Cataract Chest pain CHF (congestive heart failure) CHF exacerbation Chronic pain CKD (chronic kidney disease) CKD (chronic kidney disease) stage V requiring chronic dialysis Depression Diabetes Dialysis patient ESRD (end stage renal disease) ESRD (end stage renal disease) on dialysis Former tobacco use Gallbladder sludge GERD (gastroesophageal reflux disease) Hip pain, left HTN (hypertension) HTN (hypertension) Hyperlipidemia Hyponatremia Hypoxia ICD (implantable cardioverter-defibrillator) in place Myocardial infarct On home oxygen therapy Pacemaker PAF (paroxysmal atrial fibrillation) Pancreatitis TIA (transient ischemic attack) Home Medications atorvastatin 40 mg PO QHS 11/25/20 [History Last Taken 11/24/20] cholecalciferol (vitamin D3) 125 mcg PO DAILY 11/25/20 [History Last Taken 11/24/20] furosemide 40 mg PO BID 11/25/20 [History Last Taken 11/24/20] hydralazine 50 mg PO TID 11/25/20 [History Last Taken 11/25/20] hydroxyzine HCl 25 mg PO TID 11/25/20 [History Last Taken 11/25/20] metoprolol succinate 50 mg PO BID 11/25/20 [History Last Taken 11/25/20] omeprazole 40 mg PO QHS 11/25/20 [History Last Taken 11/24/20] Insulin Basal Pump (Pt's Own) [Pump, Basal] 1 unit SUBCUT Q24 #0 12/06/20 [Rx Last Taken Unknown] prochlorperazine maleate [Compazine] 10 mg PO TID PRN #20 tab 12/18/20 [Rx Last Taken Unknown] Acidophilus 2 cap PO BID 03/02/21 [History Last Taken Unknown] Eliquis 2.5 mg PO BID 03/02/21 [History Last Taken Unknown] aspirin 81 mg PO DAILY 03/02/21 [History Last Taken Unknown] promethazine 25 mg PO BID 03/02/21 [History Last Taken Unknown] oxycodone 5 mg PO Q6H PRN 5 Days #20 tab 03/03/21 [Rx Last Taken Unknown] albuterol sulfate 2.5 mg INHALATION Q2H PRN 03/22/21 [History Last Taken Unknown] ascorbic acid (vitamin C) 1,000 mg PO DAILY 04/18/21 [History Last Taken Unknown] nutritional supplements 240 ml PO DAILY 04/18/21 [History Last Taken Unknown] ondansetron HCl 4 mg PO Q6H PRN 04/18/21 [History Last Taken Unknown] calcium acetate(phosphat bind) 667 mg PO TIDCM #0 cap 04/24/21 [Rx Last Taken Unknown] bromfenac [BromSite] 1 drp LEFT EYE QHS 05/07/21 [History Last Taken Unknown] gabapentin 100 mg PO TID 05/07/21 [History Last Taken Unknown] ofloxacin 1 drp LEFT EYE 4X/DAY 05/07/21 [History Last Taken Unknown] methylprednisolone [Medrol] 4 mg PO DAILY 05/08/21 [History Last Taken Unknown] Allergy/AdvReac Type Severity Reaction Status Date / Time amoxicillin Allergy Hives Verified 05/07/21 21:35 benzonatate Allergy Hives Verified 05/07/21 21:35 [From Tessalon Perles] Cephalosporins Allergy Hives Verified 05/07/21 21:35 clavulanic acid Allergy Hives Verified 05/07/21 21:35 [From Augmentin] lansoprazole [From Prevacid] Allergy Other Verified 05/07/21 21:35 latex Allergy Hives Verified 05/07/21 21:35 meropenem Allergy Hives Verified 05/07/21 21:35 Penicillins Allergy Hives Verified 05/07/21 21:35 silicone AdvReac Hives Verified 05/07/21 21:35 simethicone AdvReac PT UNSURE Verified 05/07/21 21:35 OF REACTION Family History Mother Hypertension Diabetes Heart disease Father Heart disease Hypertension Diabetes Kidney disease Surgical History History of appendectomy History of arteriovenous graft History of heart artery stent History of mitral valve replacement Hx of CABG Social History (Updated 05/08/21 @ 15:[address] Daiana Guajardo MD) housing: halfway Smoking Status: Former smoker how long ago did patient quit smoking: Quit 4 years prior, smoked 1 ppd cig tob since teenager. alcohol intake: never substance use type: does not use Physical Exam Const alert, oriented x3 and no apparent distress General Appearance: cooperative Exam Limitations: no limitations HEENT normocephalic and head/scalp atraumatic Eyes PERRL and EOMs intact bilaterally Neck supple and No nodes Resp Resp Narrative: mild rhonchi mid-lung bilaterally Auscultation: rhonchi Cardio regular rate and regular rhythm GI soft to palpation, non-tender and non-distended Extremity Extremity Narrative: Feet diffusely quite tender to touch, minimal redness, some swelling, no wounds/ulcers. General Extremity: edema Skin Skin Narrative: no other rash. RUE fistula. Neuro CN's II-XII intact bilaterally Lab / Micro Data Result Diagrams: 05/09/21 08:32 05/09/21 08:32 Labs: Laboratory Results - last 24 hr 05/08/21 09:40: Differential Comment COMMENT, Diff Path Review May foll, Anisocytosis 1+ 05/08/21 10:35: Lactic Acid 2.0 05/08/21 12:34: POC Glucose 56 L 05/08/21 15:12: Lactic Acid 2.0 05/08/21 15:53: POC Glucose 65 L 05/08/21 20:47: POC Glucose 141 H 05/09/21 05:26: POC Glucose 169 H 05/09/21 08:32: WBC 13.9 H, RBC 2.97 L, Hgb 9.1 L, Hct 28.9 L, MCV 97.3, MCH 30.6, MCHC 31.5 L, RDW Std Deviation 65.1 H, RDW Coeff of Grazyna 18.5 H, Plt Count 379, MPV 10.9, Immature Gran % (Auto) 1.600 H, Neut % (Auto) 72.0 H, Lymph % (Auto) 6.7 L, [place] % (Auto) 15.0 H, Eos % (Auto) 3.9, Baso % (Auto) 0.8, Absolute Neuts (auto) 10.0 H, Absolute Lymphs (auto) 0.94, Nucleated RBC % 0.1, Diff Path Review May , Polychromasia 1+, Hypochromasia 1+, Anisocytosis RARE 05/09/21 08:32: Sodium 130 L, Potassium 4.8, Chloride 91 L, Carbon Dioxide 29.0, Anion Gap 10, BUN 51 H, Creatinine 5.73 H, Estim Creat Clear Calc 10.50, Est GFR (MDRD) Af Amer 10 L, Est GFR (MDRD) Non-Af 8 L, BUN/Creatinine Ratio 8.9 L, Glucose 139 H, Calcium 8.2 L, Total Bilirubin 0.50, AST 24, ALT 11 L, Alkaline Phosphatase 368 H, Total Protein 7.0, Albumin 2.0 L, Globulin 5.0 H, Albumin/Globulin Ratio 0.4 L 05/09/21 08:32: Ammonia 33.0 H Micro: Microbiology 05/08/21 10:35 Nasal Secretion SARS-CoV-2 Antigen (Rapid) - Final
--- NOTE | 2021-05-09 11:06 | PCM.CONS.R ---
Assessment & Plan Assessment/Plan (1) ESRD (end stage renal disease) on dialysis: PLAN: On hemodialysis Saturday, Saturday, Saturday schedule. Missed dialysis yesterday due to hypotension. Will plan for dialysis today. Blood pressure is acceptable now. We may give midodrine before dialysis depending on blood pressure values. Appears edematous. Volume removal as tolerated. Access is a right arm AV fistula. HPI Consult Data Date of Consult: 05/09/21 HPI Narrative HPI Narrative: KENYATTA BARROW, is a 61 F who presents To the hospital with hypotension. Nephrology consulted for ESRD. ESRD on hemodialysis Saturday, Saturday, Saturday schedule. Last dialysis was Saturday last week. Has been having issues with hypotension at dialysis. Appears edematous. Breathing is acceptable. Currently on nasal cannula. [facility] Medical History Anemia Arthritis Atrial fibrillation CAD (coronary artery disease) Cataract Chest pain CHF (congestive heart failure) CHF exacerbation Chronic pain CKD (chronic kidney disease) CKD (chronic kidney disease) stage V requiring chronic dialysis Depression Diabetes Dialysis patient ESRD (end stage renal disease) ESRD (end stage renal disease) on dialysis Former tobacco use Gallbladder sludge GERD (gastroesophageal reflux disease) Hip pain, left HTN (hypertension) HTN (hypertension) Hyperlipidemia Hyponatremia Hypoxia ICD (implantable cardioverter-defibrillator) in place Myocardial infarct On home oxygen therapy Pacemaker PAF (paroxysmal atrial fibrillation) Pancreatitis TIA (transient ischemic attack) Home Medications atorvastatin 40 mg PO QHS 11/25/20 [History Last Taken 11/24/20] cholecalciferol (vitamin D3) 125 mcg PO DAILY 11/25/20 [History Last Taken 11/24/20] furosemide 40 mg PO BID 11/25/20 [History Last Taken 11/24/20] hydralazine 50 mg PO TID 11/25/20 [History Last Taken 11/25/20] hydroxyzine HCl 25 mg PO TID 11/25/20 [History Last Taken 11/25/20] metoprolol succinate 50 mg PO BID 11/25/20 [History Last Taken 11/25/20] omeprazole 40 mg PO QHS 11/25/20 [History Last Taken 11/24/20] Insulin Basal Pump (Pt's Own) [Pump, Basal] 1 unit SUBCUT Q24 #0 12/06/20 [Rx Last Taken Unknown] prochlorperazine maleate [Compazine] 10 mg PO TID PRN #20 tab 12/18/20 [Rx Last Taken Unknown] Acidophilus 2 cap PO BID 03/02/21 [History Last Taken Unknown] Eliquis 2.5 mg PO BID 03/02/21 [History Last Taken Unknown] aspirin 81 mg PO DAILY 03/02/21 [History Last Taken Unknown] promethazine 25 mg PO BID 03/02/21 [History Last Taken Unknown] oxycodone 5 mg PO Q6H PRN 5 Days #20 tab 03/03/21 [Rx Last Taken Unknown] albuterol sulfate 2.5 mg INHALATION Q2H PRN 03/22/21 [History Last Taken Unknown] ascorbic acid (vitamin C) 1,000 mg PO DAILY 04/18/21 [History Last Taken Unknown] nutritional supplements 240 ml PO DAILY 04/18/21 [History Last Taken Unknown] ondansetron HCl 4 mg PO Q6H PRN 04/18/21 [History Last Taken Unknown] calcium acetate(phosphat bind) 667 mg PO TIDCM #0 cap 04/24/21 [Rx Last Taken Unknown] bromfenac [BromSite] 1 drp LEFT EYE QHS 05/07/21 [History Last Taken Unknown] gabapentin 100 mg PO TID 05/07/21 [History Last Taken Unknown] ofloxacin 1 drp LEFT EYE 4X/DAY 05/07/21 [History Last Taken Unknown] methylprednisolone [Medrol] 4 mg PO DAILY 05/08/21 [History Last Taken Unknown] Allergy/AdvReac Type Severity Reaction Status Date / Time amoxicillin Allergy Hives Verified 05/07/21 21:35 benzonatate Allergy Hives Verified 05/07/21 21:35 [From Tessalon Perles] Cephalosporins Allergy Hives Verified 05/07/21 21:35 clavulanic acid Allergy Hives Verified 05/07/21 21:35 [From Augmentin] lansoprazole [From Prevacid] Allergy Other Verified 05/07/21 21:35 latex Allergy Hives Verified 05/07/21 21:35 meropenem Allergy Hives Verified 05/07/21 21:35 Penicillins Allergy Hives Verified 05/07/21 21:35 silicone AdvReac Hives Verified 05/07/21 21:35 simethicone AdvReac PT UNSURE Verified 05/07/21 21:35 OF REACTION Family History Mother Hypertension Diabetes Heart disease Father Heart disease Hypertension Diabetes Kidney disease Surgical History History of appendectomy History of arteriovenous graft History of heart artery stent History of mitral valve replacement Hx of CABG Social History (Updated 05/08/21 @ 15:[address] Daiana Guajardo MD) housing: intermediate Smoking Status: Former smoker how long ago did patient quit smoking: Quit 4 years prior, smoked 1 ppd cig tob since teenager. alcohol intake: never substance use type: does not use ROS ROS Narrative Review of systems is negative except above Physical Exam Narrative Alert awake oriented x 3 no obvious distress no pallor no icterus no JVD s1s2 no murmurs lungs clear abdomen soft no organomegaly ++ edema no cyanosis Lab / Micro Data Result Diagrams: 05/09/21 08:32 05/09/21 08:32 Labs: Laboratory Results - last 24 hr 05/08/21 10:35: Lactic Acid 2.0 05/08/21 12:34: POC Glucose 56 L 05/08/21 15:12: Lactic Acid 2.0 05/08/21 15:53: POC Glucose 65 L 05/08/21 20:47: POC Glucose 141 H 05/09/21 05:26: POC Glucose 169 H 05/09/21 08:32: WBC 13.9 H, RBC 2.97 L, Hgb 9.1 L, Hct 28.9 L, MCV 97.3, MCH 30.6, MCHC 31.5 L, RDW Std Deviation 65.1 H, RDW Coeff of Grazyna 18.5 H, Plt Count 379, MPV 10.9, Immature Gran % (Auto) 1.600 H, Neut % (Auto) 72.0 H, Lymph % (Auto) 6.7 L, [place] % (Auto) 15.0 H, Eos % (Auto) 3.9, Baso % (Auto) 0.8, Absolute Neuts (auto) 10.0 H, Absolute Lymphs (auto) 0.94, Nucleated RBC % 0.1, Diff Path Review May foll, Polychromasia 1+, Hypochromasia 1+, Anisocytosis RARE 05/09/21 08:32: Sodium 130 L, Potassium 4.8, Chloride 91 L, Carbon Dioxide 29.0, Anion Gap 10, BUN 51 H, Creatinine 5.73 H, Estim Creat Clear Calc 10.50, Est GFR (MDRD) Af Amer 10 L, Est GFR (MDRD) Non-Af 8 L, BUN/Creatinine Ratio 8.9 L, Glucose 139 H, Calcium 8.2 L, Total Bilirubin 0.50, AST 24, ALT 11 L, Alkaline Phosphatase 368 H, Total Protein 7.0, Albumin 2.0 L, Globulin 5.0 H, Albumin/Globulin Ratio 0.4 L 05/09/21 08:32: Ammonia 33.0 H Micro: Microbiology 05/08/21 10:35 Nasal Secretion SARS-CoV-2 Antigen (Rapid) - Final
--- NOTE | 2021-05-09 11:24 | CASEMGMT ---
Pt screened with [facility] Palliative Care screening tool due to readmission, pt met criteria. No order received at this time.
--- NOTE | 2021-05-09 11:26 | CASEMGMT ---
Addendum entered by Cindy Gagnon 05/09/21 13:03: SW in to speak with pt. Pt confirms that she came from [place] and will be returning to [place] at discharge. Original Note: Social Work Note SW reviewed chart. Pt is listed as being from [place]. JINA placed a call to Glory at [place]. 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 Glory states pt can return when pt is medically cleared JINA faxed updated clinicals to [place]. Cindy Gagnon COLLECTIONS AGENT, DIVIDING MACHINE OPERATOR
[2021-05-09 11:36] LABS: Bedside Glucose 153 mg/dL (70-110)
--- NOTE | 2021-05-09 12:43 | PCM.PN.HOSP ---
Documented by User: Marck PERALTA 05/09/21 12:59 Subjective Subjective Patient is a 61-year-old female lying in bed, alert and orient x3. Patient reports that respiratory status has improved since admission and feels that patient is now back to her baseline. Denies development of any new symptoms overnight. Does not appear in acute distress. Objective Data Objective Data Vital Signs: Vital Signs Temp Pulse Resp BP Pulse Ox 97.3 F L 71 16 126/47 H 96 05/09/21 07:59 05/09/21 07:59 05/09/21 07:59 05/09/21 07:59 05/09/21 07:59 Oxygen Flow Rate (L/min) 3 Oxygen Delivery Method Nasal Cannula Weight: 147 lb 11.355 oz Body Mass Index (BMI) 27.0 Intake & Output: Intake and Output for Last 24 Hours 05/07/21 05/08/21 05/09/21 23:59 23:59 23:59 Intake Total 1490 / 1490 240 / 240 Balance 1490 / 1490 240 / 240 Lab / Micro Data Result Diagrams: 05/09/21 08:32 05/09/21 08:32 Labs: Laboratory Results - last 24 hr 05/08/21 15:12: Lactic Acid 2.0 05/08/21 15:53: POC Glucose 65 L 05/08/21 20:47: POC Glucose 141 H 05/09/21 05:26: POC Glucose 169 H 05/09/21 08:32: WBC 13.9 H, RBC 2.97 L, Hgb 9.1 L, Hct 28.9 L, MCV 97.3, MCH 30.6, MCHC 31.5 L, RDW Std Deviation 65.1 H, RDW Coeff of Grazyna 18.5 H, Plt Count 379, MPV 10.9, Immature Gran % (Auto) 1.600 H, Neut % (Auto) 72.0 H, Lymph % (Auto) 6.7 L, [place] % (Auto) 15.0 H, Eos % (Auto) 3.9, Baso % (Auto) 0.8, Absolute Neuts (auto) 10.0 H, Absolute Lymphs (auto) 0.94, Nucleated RBC % 0.1, Diff Path Review May foll, Polychromasia 1+, Hypochromasia 1+, Anisocytosis RARE 05/09/21 08:32: Sodium 130 L, Potassium 4.8, Chloride 91 L, Carbon Dioxide 29.0, Anion Gap 10, BUN 51 H, Creatinine 5.73 H, Estim Creat Clear Calc 10.50, Est GFR (MDRD) Af Amer 10 L, Est GFR (MDRD) Non-Af 8 L, BUN/Creatinine Ratio 8.9 L, Glucose 139 H, Calcium 8.2 L, Total Bilirubin 0.50, AST 24, ALT 11 L, Alkaline Phosphatase 368 H, Total Protein 7.0, Albumin 2.0 L, Globulin 5.0 H, Albumin/Globulin Ratio 0.4 L 05/09/21 08:32: Ammonia 33.0 H 05/09/21 11:33: POC Glucose 153 H Micro: Microbiology 05/08/21 10:35 Nasal Secretion SARS-CoV-2 Antigen (Rapid) - Final Physical Exam Const alert, oriented x3 and no apparent distress HEENT head/scalp atraumatic and moist oral mucous membranes Head and Scalp: normocephalic Eyes PERRL, EOMs intact bilaterally and conjunctivae normal Neck no lymphadenopathy, supple and no JVD Resp normal respiratory effort, no retractions, no use of accessory muscles and clear to auscultation bilaterally Cardio regular rate, regular rhythm, no murmurs and no JVD GI normal to inspection, nondistended, normoactive bowel sounds, soft to palpation and non-tender Extremity normal to inspection, full ROM and no clubbing, cyanosis or edema Skin no rashes or lesions noted, no wounds and skin turgor normal Neuro CN's II-XII intact bilaterally Psych affect normal Assessment & Plan Assessment/Plan (1) Pneumonia: QUALIFIERS: Laterality: unspecified laterality Lung location: unspecified part of lung Pneumonia type: due to unspecified organism Qualified Code(s): J18.9 - Pneumonia, unspecified organism (2) Chronic respiratory failure: QUALIFIERS: Respiratory failure complication: hypoxia Qualified Code(s): J96.11 - Chronic respiratory failure with hypoxia (3) Acute hypotension: PLAN: Day 1 Discharge planning: Current plan is for patient to discharge back to [facility] when ready. 1) suspected recurrent pneumonia with chronic hypoxic respiratory failure. There was a concern for possible recurrent pneumonia given presence of right lower lobe infiltrates and small right pleural effusion. On my examination, chest x-ray appears more or less the same from previous study obtained in early April and patient has now returned to her baseline oxygen requirements at 3 L. ID consult obtained and concurs with my evaluation, although does recommend continuing Levaquin for now. We will continue antibiotics and observe patient's respiratory status overnight, plan for discharge on 05/10. 2) ESRD Patient missed scheduled dialysis on 05/08 due to observed hypotension at dialysis center. Patient is on MWF schedule regularly. Nephrology consult ordered, will dialyze patient in the hospital and resume schedule on discharge. 3) HFpEF Stable, do not believe patient is in acute exacerbation. Echocardiogram from November 2020 demonstrated normal LV systolic function, EF 55%, mildly dilated RV, mild global RV systolic dysfunction, moderately enlarged RA, stable appearing bioprosthetic MV apparatus, trivial transvalvular insufficiency of the mitral valve, moderate TVI, mild TVI, RVSP 45 mmHg. Patient is on chronic oxygen as above, holding home metoprolol due to hypotension. 4) hypotension Patient has been hypotensive throughout admission, currently 126/47. Midodrine ordered, hold home BP regimen. 5) PAF On metoprolol for rate control and Eliquis for anticoagulation. Hold metoprolol as above, continue Eliquis. 6) DM 1 with neuropathy Continue basal insulin pump, continue gabapentin, Accu-Cheks sliding scale insulin ordered. DVT prophylaxis - Eliquis Patient seen by Marck Mckee PA-C, under the supervision of Dr. Rogers. Documented by User: Dr. Tisha Rogers MD 05/09/21 15:45 Objective Data Lab / Micro Data Result Diagrams: 05/09/21 08:32 05/09/21 08:32 Charges/Coding Addendum Addendum: Patient seen by Marck Mckee PA-C under my supervision Patient seen and examined. She was brought in on account of low blood pressure at hemodialysis and she also has some shortness of breath. On admission a chest imaging was found to be consistent with pneumonia so she was started on IV antibiotics. Patient has no complaints today and states she feels better. She is on her baseline 3 L of oxygen and denies any cough, worsening shortness of breath, chest pain, nausea vomiting or diarrhea. Review of systems otherwise negative and she has remained hemodynamically stable. O/E: Const alert, oriented x3 and no apparent distress HEENT head/scalp atraumatic and moist oral mucous membranes Head and Scalp: normocephalic Eyes PERRL, EOMs intact bilaterally and conjunctivae normal Neck no lymphadenopathy, supple and no JVD Resp diminished breath sounds bibasally, no wheezes or crackles. on 3l of oxygen by nasal canula regular rate, regular rhythm, no murmurs and no JVD GI normal to inspection, nondistended, normoactive bowel sounds, soft to palpation and non-tender Extremity normal to inspection, full ROM and no clubbing, cyanosis or edema Skin no rashes or lesions noted, no wounds and skin turgor normal Neuro CN's II-XII intact bilaterally Psych affect normal Assessment and plan Patient is being managed for low blood pressure missed dialysis. Hypertension has pretty much resolved. BP meds on hold and patient started on midodrine. He just imaging appears similar to previous images. Patient has been treated for pneumonia twice over the last few weeks. ID reviewed patient though ID does not think patient has pneumonia, ID recommends continuing on Levaquin for now. Nephrology consulted for dialysis as she missed dialysis yesterday due to her hypotension. Patient continues on Eliquis for A. fib; metoprolol on hold on account of hypotension. Basal insulin pump in place with diabetes mellitus. DVT prophylaxis not indicated as patient is on Eliquis. Rest as per Orly Chicas which I reviewed and endorsed. Patient seen by FABIAN Mckee and myself. Total time spent on evaluation and care of patient is 33 minutes, and I personally spent 20 minutes on the total management of the patient. Visit Charges Inpatient E&M: 93668 Subs Hosp L2
[2021-05-09 13:44] VITALS: O2SAT 96
[2021-05-09 16:22] LABS: M R Staph aureus DNA By PCR Negative (Negative); Probe Check PASS; Specimen Processing Control PASS
[2021-05-09 16:50] VITALS: BP 125/55; PULSE 67; RESP 18; TEMP 36.3; O2SAT 95
[2021-05-09 17:16] LABS: Bedside Glucose 152 mg/dL (70-110)
[2021-05-09 20:48] VITALS: BP 125/54; PULSE 71; RESP 18; TEMP 36.4; O2SAT 95
[2021-05-09] MEDS: Atorvastatin Calcium 40 MG Tablet PO (20:53)
[2021-05-09] MEDS: Pantoprazole Sodium 40 MG Tablet PO (20:54)
[2021-05-09 21:10] LABS: Bedside Glucose 177 mg/dL (70-110)
--- NOTE | 2021-05-09 21:54 | NURSING ---
spoke with RN at [place] for patient update.
[2021-05-10 04:00] VITALS: BP 119/48; PULSE 76; RESP 18; TEMP 36.6; O2SAT 95
[2021-05-10] MEDS: hydrOXYzine PAM 25 MG Capsule PO ×2 (05:06→15:07)
[2021-05-10] MEDS: Gabapentin 100 MG Capsule PO (05:06)
[2021-05-10] MEDS: oxyCODONE 5 MG Tablet PO ×2 (05:06→10:27)
[2021-05-10] MEDS: Acetaminophen 325 MG Tablet 650 MG PO ×2 (05:06→10:26)
[2021-05-10 05:48] LABS: Absolute Neutrophil Count 8.8 X10^3/uL (2.0-7.7); Basophil# 0.12 X10^3/uL; Basophil% 0.9 % (0-1); Eosinophil# 0.53 X10^3/uL; Eosinophils% 4.2 % (0-5); Hematocrit 27.4 % (37-47); Hemoglobin 9.1 g/dL (12.0-15.0); Lymphocyte % 7.9 % (19-41); Mean Corp Hgb Conc 33.2 g/dL (32-36); Mean Corpuscular Hgb 30.7 pg (27.0-32.0); Mean Corpuscular Volume 92.6 fL (81-99); Monocyte# 2.02 X10^3/uL; NRBC Flagged by Analyzer 0.2 % (0-5); Neutrophil # 8.76 X10^3/uL (2.7-7.7); Neutrophil % 69.3 % (47-70); POSITIVE DIFFERENTIAL YES; Platelet Count 374 K/mm3 (150-450); RBC Distribution Width CV 18.3 % (11.6-14.6); RBC Distribution Width SD 59.1 fl (35.1-43.9); Red Blood Count 2.96 M/mm3 (4.2-5.4); White Blood Count 12.7 K/mm3 (4.4-11.0)
[2021-05-10 05:59] LABS: Differential Indicated SCAN CRITERIA MET
[2021-05-10 06:12] LABS: Anisocytosis 1+
[2021-05-10] MEDS: Insulin Lispro 100 UNIT/ML INSULN.PEN SC ×3 (06:20→17:35)
[2021-05-10 06:46] LABS: Bedside Glucose 173 mg/dL (70-110)
[2021-05-10] MEDS: Epoetin Alfa epbx 10,000 UNITS/ML 5400 UNIT IV (09:00)
[2021-05-10 09:14] LABS: Pathologist Review Reviewed
[2021-05-10 10:25] LABS: Bedside Glucose 127 mg/dL (70-110)
[2021-05-10 12:00] VITALS: BP 108/53; BP 110/44; PULSE 91; RESP 16; TEMP 36.4; TEMP 36.8; O2SAT 92
[2021-05-10] MEDS: Morphine 2 MG/ML Syringe IV (12:01)
[2021-05-10] MEDS: levoFLOXacin IV 250 MG/50 ML BAG 50 MG IV (12:01)
[2021-05-10] MEDS: 0.9% Saline Lock 10 ML Syringe IV (12:02)
[2021-05-10] MEDS: Midodrine HCl 5 MG Tablet 10 MG PO ×2 (12:11→17:35)
[2021-05-10] MEDS: Ascorbic Acid 500 MG Tablet 1000 MG PO (12:11)
[2021-05-10] MEDS: Polyethylene Glycol 3350 17 GM PACKET PO (12:12)
[2021-05-10] MEDS: Aspirin E.C. 81 MG Tablet PO (12:12)
[2021-05-10] MEDS: APIXABAN 2.5 MG TABLET PO (12:13)
[2021-05-10] MEDS: Cholecalciferol (VIT D3) 25 MCG TABLET (1,000 UNITS) 125 MCG PO (12:13)
[2021-05-10] MEDS: Calcium Acetate 667 MG Capsule PO ×2 (12:13→17:34)
--- NOTE | 2021-05-10 12:23 | DIALYSIS ---
HD x 3.5 hours complete. Tolerated tx well. Ran on 2k bath. UF of 3300ml. Used right arm fistula. [place] removed post tx and pressure applied x 10 minutes. Hemostasis achieved. Fresh gauze and tape applied. Epogen was given as ordered. Report was given to OLINDA Woody.
[2021-05-10 12:35] LABS: Bedside Glucose 157 mg/dL (70-110)
--- NOTE | 2021-05-10 13:12 | CASEMGMT ---
Social Work Note Pt to discharge back to [place] today. SW placed a call to Glory at [place] and updated her. Plan: Return to [place] today Cindy Gagnon CUSTOMER ACCOUNT REPRESENTATIVE, DIETARY DIRECTOR
--- NOTE | 2021-05-10 13:15 | TREXTCAR_ITS ---
Documented by User: Marck PERALTA 05/10/21 14:48 Diet 05/08/21 15:53 Diet: Renal - General Food consistency:: Regular Liquid Consistency:: Regular/Thin Dietary Modifications:: Consistent Carbohydrate Fluid restriction:: 1500 mL Therapies Weight Bearing: Weight bearing as tolerated Physical Therapy: Eval and Treat Occupational Therapy: Eval and Treat Problem/Diagnosis (1) Pneumonia: Status: Acute (2) Chronic respiratory failure: Status: Chronic (3) Acute hypotension: Status: Acute Allergies/Procedures Done in Hospital Allergies amoxicillin Allergy (Verified 05/07/21 21:35) Hives benzonatate [From Tessalon Perles] Allergy (Verified 05/07/21 21:35) Hives Cephalosporins Allergy (Verified 05/07/21 21:35) Hives clavulanic acid [From Augmentin] Allergy (Verified 05/07/21 21:35) Hives lansoprazole [From Prevacid] Allergy (Verified 05/07/21 21:35) Other latex Allergy (Verified 05/07/21 21:35) Hives meropenem Allergy (Verified 05/07/21 21:35) Hives Penicillins Allergy (Verified 05/07/21 21:35) Hives silicone Adverse Reaction (Verified 05/07/21 21:35) Hives simethicone Adverse Reaction (Verified 05/07/21 21:35) PT UNSURE OF REACTION Type of Care/Length of Stay Estimated LOS: Convalescent Care Less Than 30 days Type of Care Needed: Skilled Rehab Potential: Good Prognosis: Good Additional Orders/Day of Discharge Day of Discharge: 05/10/21 Dietary and Speech Recommendations Dietitian Recommendations/Changes: Will change diet to Carbohydrate- Controlled/General Renal with 1500ml FR. Will offer Nepro Carb Steady as needed if PO inadequate at meals. Discharge Plan Admission Admit Date/Time: 05/08/21 12:57 Primary Reason for Your Visit: Shortness of breath. Attending Provider: Tisha Rogers Primary Care Provider: Jhony Delgado Consulting Providers: Oracio Manzano ; Chago Guillen Discharge Orders/Prescriptions Prescriptions: New gabapentin 300 mg Capsule 300 mg PO TID Qty: 90 RF: 0 midodrine 5 mg Tablet 10 mg PO TIDCM Qty: 90 RF: 0 Continued furosemide 40 mg Tablet 40 mg PO BID RF: 0 atorvastatin 40 mg tablet 40 mg PO QHS RF: 0 metoprolol succinate 50 mg tablet extended release 24 hr 50 mg PO BID RF: 0 omeprazole 40 mg capsule,delayed release(DR/EC) 40 mg PO QHS RF: 0 hydroxyzine HCl 25 mg tablet 25 mg PO TID RF: 0 hydralazine 50 mg tablet 50 mg PO TID RF: 0 cholecalciferol (vitamin D3) 125 mcg (5,000 unit) Capsule 125 mcg PO DAILY RF: 0 Insulin Basal Pump (Pt's Own) [Pump, Basal] 1 unit subcut Q24 Qty: 0 RF: 0 prochlorperazine maleate [Compazine] 10 mg tablet 10 mg PO TID PRN (Reason: nausea and vomiting) Qty: 20 RF: 0 aspirin 81 mg Capsule,Delayed Release(Dr/Ec) 81 mg PO DAILY RF: 0 Acidophilus Capsule 2 cap PO BID RF: 0 Eliquis 5 mg tablet 2.5 mg PO BID RF: 0 promethazine 25 mg tablet 25 mg PO BID RF: 0 oxycodone 5 mg tablet 5 mg PO Q6H PRN (Reason: pain) 5 Days Qty: 20 RF: 0 albuterol sulfate 2.5 mg /3 mL (0.083 %) Solution For Nebulization 2.5 mg INHALATION Q2H PRN (Reason: Shortness Of Breath Or Wheezing) RF: 0 ondansetron HCl 4 mg Tablet 4 mg PO Q6H PRN (Reason: Nausea) RF: 0 ascorbic acid (vitamin C) 1,000 mg Tablet Extended Release 1,000 mg PO DAILY RF: 0 calcium acetate(phosphat bind) 667 mg Capsule 667 mg PO TIDCM Qty: 0 RF: 0 ofloxacin 0.3 % Drops 1 drp LEFT EYE 4X/DAY RF: 0 BromSite 0.075 % Drops 1 drp LEFT EYE QHS RF: 0 methylprednisolone [Medrol] 4 mg Tablet 4 mg PO DAILY RF: 0 Nepro Carb Steady 0.08 gram-1.8 kcal/mL Liquid 240 ml PO DAILY RF: 0 Discontinued gabapentin 100 mg Tablet 100 mg PO TID RF: 0 Referrals / Follow Up: Jhony Delgado MD [Primary Care Provider] - Within 2 Weeks Disposition Disposition (needs filled in before D/C Order can be placed): Home, Self Care Documented by User: Dr. Tisha Rogers MD 05/10/21 14:51 Allergies/Procedures Done in Hospital Allergies amoxicillin Allergy (Verified 05/07/21 21:35) Hives benzonatate [From Tessalon Perles] Allergy (Verified 05/07/21 21:35) Hives Cephalosporins Allergy (Verified 05/07/21 21:35) Hives clavulanic acid [From Augmentin] Allergy (Verified 05/07/21 21:35) Hives lansoprazole [From Prevacid] Allergy (Verified 05/07/21 21:35) Other latex Allergy (Verified 05/07/21 21:35) Hives meropenem Allergy (Verified 05/07/21 21:35) Hives Penicillins Allergy (Verified 05/07/21 21:35) Hives silicone Adverse Reaction (Verified 05/07/21 21:35) Hives simethicone Adverse Reaction (Verified 05/07/21 21:35) PT UNSURE OF REACTION Discharge Plan Admission Admit Date/Time: 05/08/21 12:57 Primary Reason for Your Visit: Shortness of breath. Attending Provider: Tisha Rogers Primary Care Provider: Jhony Delgado Consulting Providers: Oracio Manzano ; Chago Giullen Discharge Orders/Prescriptions Prescriptions: New gabapentin 300 mg Capsule 300 mg PO TID Qty: 90 RF: 0 midodrine 5 mg Tablet 10 mg PO TIDCM Qty: 90 RF: 0 Continued furosemide 40 mg Tablet 40 mg PO BID RF: 0 atorvastatin 40 mg tablet 40 mg PO QHS RF: 0 metoprolol succinate 50 mg tablet extended release 24 hr 50 mg PO BID RF: 0 omeprazole 40 mg capsule,delayed release(DR/EC) 40 mg PO QHS RF: 0 hydroxyzine HCl 25 mg tablet 25 mg PO TID RF: 0 hydralazine 50 mg tablet 50 mg PO TID RF: 0 cholecalciferol (vitamin D3) 125 mcg (5,000 unit) Capsule 125 mcg PO DAILY RF: 0 Insulin Basal Pump (Pt's Own) [Pump, Basal] 1 unit subcut Q24 Qty: 0 RF: 0 prochlorperazine maleate [Compazine] 10 mg tablet 10 mg PO TID PRN (Reason: nausea and vomiting) Qty: 20 RF: 0 aspirin 81 mg Capsule,Delayed Release(Dr/Ec) 81 mg PO DAILY RF: 0 Acidophilus Capsule 2 cap PO BID RF: 0 Eliquis 5 mg tablet 2.5 mg PO BID RF: 0 promethazine 25 mg tablet 25 mg PO BID RF: 0 oxycodone 5 mg tablet 5 mg PO Q6H PRN (Reason: pain) 5 Days Qty: 20 RF: 0 albuterol sulfate 2.5 mg /3 mL (0.083 %) Solution For Nebulization 2.5 mg INHALATION Q2H PRN (Reason: Shortness Of Breath Or Wheezing) RF: 0 ondansetron HCl 4 mg Tablet 4 mg PO Q6H PRN (Reason: Nausea) RF: 0 ascorbic acid (vitamin C) 1,000 mg Tablet Extended Release 1,000 mg PO DAILY RF: 0 calcium acetate(phosphat bind) 667 mg Capsule 667 mg PO TIDCM Qty: 0 RF: 0 ofloxacin 0.3 % Drops 1 drp LEFT EYE 4X/DAY RF: 0 BromSite 0.075 % Drops 1 drp LEFT EYE QHS RF: 0 methylprednisolone [Medrol] 4 mg Tablet 4 mg PO DAILY RF: 0 Nepro Carb Steady 0.08 gram-1.8 kcal/mL Liquid 240 ml PO DAILY RF: 0 Discontinued gabapentin 100 mg Tablet 100 mg PO TID RF: 0 Referrals / Follow Up: Jhony Delgado MD [Primary Care Provider] - Within 2 Weeks Disposition Disposition (needs filled in before D/C Order can be placed): Home, Self Care
--- NOTE | 2021-05-10 13:54 | PCM.DC.SUM ---
Documented by User: Marck PERALTA 05/10/21 14:49 Providers Date of Admission: 05/08/21 Primary Care Physician: Dr. Jhony Delgado MD Consultations 05/08/21 14:14 Consult: Infectious Disease Routine Consulting Provider: Oracio Manzano Reason for Consult: Readmit PNA EMERGENT Consult: No MD Notified: Yes Date Notified: 05/08/21 Time Notified: 15:46 Method of Notification: via answering service Consult: Nephrology Routine Consulting Provider: Chago Guillen Reason for Consult: ESRD on HD, missed today with low BP at facility. EMERGENT Consult: No MD Notified: Yes Date Notified: 05/08/21 Time Notified: 15:47 Method of Notification: via scoring machine operator Reason For Visit: PNA, RESP FAILURE, MISSED HD W/ HYPOTENSION Diagnosis Discharge Diagnosis (1) Pneumonia: Status: Acute Code(s): J18.9 - Pneumonia, unspecified organism Qualifiers: Laterality: unspecified laterality Lung location: unspecified part of lung Pneumonia type: due to unspecified organism Qualified Code(s): J18.9 - Pneumonia, unspecified organism (2) Chronic respiratory failure: Status: Chronic Code(s): J96.10 - Chronic respiratory failure, unspecified whether with hypoxia or hypercapnia Qualifiers: Respiratory failure complication: hypoxia Qualified Code(s): J96.11 - Chronic respiratory failure with hypoxia (3) Acute hypotension: Status: Acute Code(s): I95.9 - Hypotension, unspecified Medications at Discharge Home Medications atorvastatin 40 mg PO QHS 11/25/20 cholecalciferol (vitamin D3) 125 mcg PO DAILY 11/25/20 furosemide 40 mg PO BID 11/25/20 hydralazine 50 mg PO TID 11/25/20 hydroxyzine HCl 25 mg PO TID 11/25/20 metoprolol succinate 50 mg PO BID 11/25/20 omeprazole 40 mg PO QHS 11/25/20 Insulin Basal Pump (Pt's Own) [Pump, Basal] 1 unit SUBCUT Q24 #0 12/06/20 prochlorperazine maleate [Compazine] 10 mg PO TID PRN #20 tab 12/18/20 Acidophilus 2 cap PO BID 03/02/21 Eliquis 2.5 mg PO BID 03/02/21 aspirin 81 mg PO DAILY 03/02/21 promethazine 25 mg PO BID 03/02/21 oxycodone 5 mg PO Q6H PRN 5 Days #20 tab 03/03/21 albuterol sulfate 2.5 mg INHALATION Q2H PRN 03/22/21 ascorbic acid (vitamin C) 1,000 mg PO DAILY 04/18/21 ondansetron HCl 4 mg PO Q6H PRN 04/18/21 calcium acetate(phosphat bind) 667 mg PO TIDCM #0 cap 04/24/21 BromSite 1 drp LEFT EYE QHS 05/07/21 ofloxacin 1 drp LEFT EYE 4X/DAY 05/07/21 methylprednisolone [Medrol] 4 mg PO DAILY 05/08/21 Nepro Carb Steady 240 ml PO DAILY 05/09/21 gabapentin 300 mg PO TID #90 cap 05/10/21 midodrine 10 mg PO TIDCM #90 tab 05/10/21 Hospital Course Summary of Care Provided Minutes Spent on Discharge: 20 Hospital Course: Patient is a 61-year-old female who was admitted to [facility] on 05/08/2021 for evaluation and management of possible recurrent pneumonia with chronic hypoxic respiratory failure and hypotension in the setting of ESRD. 1) suspected recurrent pneumonia with chronic hypoxic respiratory failure. There was a concern for possible recurrent pneumonia given presence of right lower lobe infiltrates and small right pleural effusion. On my examination, chest x-ray appears more or less the same from previous study obtained in early April and patient has now returned to her baseline oxygen requirements at 3 L. ID consult obtained and concurs with my evaluation. Levaquin was continued per IDs evaluation, but will not be continued on discharge due to patient's return to her baseline. 2) ESRD Patient missed scheduled dialysis on 05/08 due to observed hypotension at dialysis center. Patient is on MWF schedule regularly. Nephrology consult ordered, was dialyzed twice during admission. 3) HFpEF Stable, do not believe patient is in acute exacerbation. Echocardiogram from November 2020 demonstrated normal LV systolic function, EF 55%, mildly dilated RV, mild global RV systolic dysfunction, moderately enlarged RA, stable appearing bioprosthetic MV apparatus, trivial transvalvular insufficiency of the mitral valve, moderate TVI, mild TVI, RVSP 45 mmHg. Continue home CHF regimen. 4) hypotension Patient has been hypotensive throughout admission, currently 110/44. Nephrology recommends continuing midodrine and they will follow up on discharge. Midodrine continued on discharge. 5) PAF On metoprolol for rate control and Eliquis for anticoagulation. Continue home PAF regimen. 6) DM 1 with neuropathy Continue home diabetic regimen. Patient seen by Marck Mckee PA-C, under the supervision of Dr. Rogers. Time spent on patient care: 20 minutes. Physical Exam Narrative Patient is a 61-year-old female comfortably resting in bed, alert and orient x3. Patient reports that her shortness of breath is greatly improved from admission, denies development of any new symptoms overnight. Does not appear in acute distress. Const alert, oriented x3 and no apparent distress HEENT normocephalic, head/scalp atraumatic and hearing grossly normal bilaterally Eyes PERRL, EOMs intact bilaterally and conjunctivae normal Neck no lymphadenopathy, supple and no JVD Resp normal respiratory effort, no retractions, no use of accessory muscles and clear to auscultation bilaterally Cardio regular rate, regular rhythm, no murmurs and no JVD GI normal to inspection, nondistended, normoactive bowel sounds, soft to palpation and non-tender Extremity normal to inspection, full ROM and no clubbing, cyanosis or edema Skin no rashes or lesions noted, no wounds and skin turgor normal Neuro CN's II-XII intact bilaterally Psych affect normal Weight / BMI Weight Weight: 189 lb 9.561 oz Body Mass Index (BMI) 27.0 ABG / Lab / Microbiology Data Result Diagrams: 05/10/21 05:55 05/09/21 08:32 Laboratory: Laboratory Results - last 24 hr 05/08/21 09:40: Diff Path Review Reviewed 05/09/21 11:45: MRSA (PCR) Negative 05/09/21 17:03: POC Glucose 152 H 05/09/21 20:52: POC Glucose 177 H 05/10/21 05:55: WBC 12.7 H, RBC 2.96 L, Hgb 9.1 L, Hct 27.4 L, MCV 92.6, MCH 30.7, MCHC 33.2 D, RDW Std Deviation 59.1 H, RDW Coeff of Grazyna 18.3 H, Plt Count 374, MPV 11.0, Immature Gran % (Auto) 1.700 H, Neut % (Auto) 69.3, Lymph % (Auto) 7.9 L, [place] % (Auto) 16.0 H, Eos % (Auto) 4.2, Baso % (Auto) 0.9, Absolute Neuts (auto) 8.8 H, Absolute Lymphs (auto) 1.00, Nucleated RBC % 0.2, Diff Path Review May foll, Anisocytosis 1+ 05/10/21 06:18: POC Glucose 173 H 05/10/21 10:20: POC Glucose 127 H 05/10/21 12:09: POC Glucose 157 H Microbiology: Microbiology 05/08/21 10:46 Blood Culture (Wb) - Left Wrist Blood Culture - Preliminary No growth in 48 hours. 05/08/21 10:35 Blood Culture (Wb) - Anticubital Left Blood Culture - Preliminary No growth in 48 hours. 05/08/21 10:35 Nasal Secretion SARS-CoV-2 Antigen (Rapid) - Final Meaningful Use Info Meaningful Use Diagnoses (Choose all that apply): None applicable Discharge Plan Admission Admit Date/Time: 05/08/21 12:57 Primary Reason for Your Visit: Shortness of breath. Attending Provider: Tisha Rogers Primary Care Provider: Jhony Delgado Consulting Providers: Oracio Manzano ; Chago Guillen Discharge Orders/Prescriptions Prescriptions: New gabapentin 300 mg Capsule 300 mg PO TID Qty: 90 RF: 0 midodrine 5 mg Tablet 10 mg PO TIDCM Qty: 90 RF: 0 Continued furosemide 40 mg Tablet 40 mg PO BID RF: 0 atorvastatin 40 mg tablet 40 mg PO QHS RF: 0 metoprolol succinate 50 mg tablet extended release 24 hr 50 mg PO BID RF: 0 omeprazole 40 mg capsule,delayed release(DR/EC) 40 mg PO QHS RF: 0 hydroxyzine HCl 25 mg tablet 25 mg PO TID RF: 0 hydralazine 50 mg tablet 50 mg PO TID RF: 0 cholecalciferol (vitamin D3) 125 mcg (5,000 unit) Capsule 125 mcg PO DAILY RF: 0 Insulin Basal Pump (Pt's Own) [Pump, Basal] 1 unit subcut Q24 Qty: 0 RF: 0 prochlorperazine maleate [Compazine] 10 mg tablet 10 mg PO TID PRN (Reason: nausea and vomiting) Qty: 20 RF: 0 aspirin 81 mg Capsule,Delayed Release(Dr/Ec) 81 mg PO DAILY RF: 0 Acidophilus Capsule 2 cap PO BID RF: 0 Eliquis 5 mg tablet 2.5 mg PO BID RF: 0 promethazine 25 mg tablet 25 mg PO BID RF: 0 oxycodone 5 mg tablet 5 mg PO Q6H PRN (Reason: pain) 5 Days Qty: 20 RF: 0 albuterol sulfate 2.5 mg /3 mL (0.083 %) Solution For Nebulization 2.5 mg INHALATION Q2H PRN (Reason: Shortness Of Breath Or Wheezing) RF: 0 ondansetron HCl 4 mg Tablet 4 mg PO Q6H PRN (Reason: Nausea) RF: 0 ascorbic acid (vitamin C) 1,000 mg Tablet Extended Release 1,000 mg PO DAILY RF: 0 calcium acetate(phosphat bind) 667 mg Capsule 667 mg PO TIDCM Qty: 0 RF: 0 ofloxacin 0.3 % Drops 1 drp LEFT EYE 4X/DAY RF: 0 BromSite 0.075 % Drops 1 drp LEFT EYE QHS RF: 0 methylprednisolone [Medrol] 4 mg Tablet 4 mg PO DAILY RF: 0 Nepro Carb Steady 0.08 gram-1.8 kcal/mL Liquid 240 ml PO DAILY RF: 0 Discontinued gabapentin 100 mg Tablet 100 mg PO TID RF: 0 Referrals / Follow Up: Jhony Delgado MD [Primary Care Provider] - Within 2 Weeks Disposition Disposition (needs filled in before D/C Order can be placed): Home, Self Care Documented by User: Dr. Tisha Rogers MD 05/10/21 14:51 Providers Date of Admission: 05/08/21 Reason For Visit: PNA, RESP FAILURE, MISSED HD W/ HYPOTENSION Medications at Discharge Home Medications atorvastatin 40 mg PO QHS 11/25/20 cholecalciferol (vitamin D3) 125 mcg PO DAILY 11/25/20 furosemide 40 mg PO BID 11/25/20 hydralazine 50 mg PO TID 11/25/20 hydroxyzine HCl 25 mg PO TID 11/25/20 metoprolol succinate 50 mg PO BID 11/25/20 omeprazole 40 mg PO QHS 11/25/20 Insulin Basal Pump (Pt's Own) [Pump, Basal] 1 unit SUBCUT Q24 #0 12/06/20 prochlorperazine maleate [Compazine] 10 mg PO TID PRN #20 tab 12/18/20 Acidophilus 2 cap PO BID 03/02/21 Eliquis 2.5 mg PO BID 03/02/21 aspirin 81 mg PO DAILY 03/02/21 promethazine 25 mg PO BID 03/02/21 oxycodone 5 mg PO Q6H PRN 5 Days #20 tab 03/03/21 albuterol sulfate 2.5 mg INHALATION Q2H PRN 03/22/21 ascorbic acid (vitamin C) 1,000 mg PO DAILY 04/18/21 ondansetron HCl 4 mg PO Q6H PRN 04/18/21 calcium acetate(phosphat bind) 667 mg PO TIDCM #0 cap 04/24/21 BromSite 1 drp LEFT EYE QHS 05/07/21 ofloxacin 1 drp LEFT EYE 4X/DAY 05/07/21 methylprednisolone [Medrol] 4 mg PO DAILY 05/08/21 Nepro Carb Steady 240 ml PO DAILY 05/09/21 gabapentin 300 mg PO TID #90 cap 05/10/21 midodrine 10 mg PO TIDCM #90 tab 05/10/21 ABG / Lab / Microbiology Data Result Diagrams: 05/10/21 05:55 05/09/21 08:32 Discharge Plan Admission Admit Date/Time: 05/08/21 12:57 Primary Reason for Your Visit: Shortness of breath. Attending Provider: Tisha Rogers Primary Care Provider: Jhony Delgado Consulting Providers: Oracio Manzano ; Chago Guillen Discharge Orders/Prescriptions Prescriptions: New gabapentin 300 mg Capsule 300 mg PO TID Qty: 90 RF: 0 midodrine 5 mg Tablet 10 mg PO TIDCM Qty: 90 RF: 0 Continued furosemide 40 mg Tablet 40 mg PO BID RF: 0 atorvastatin 40 mg tablet 40 mg PO QHS RF: 0 metoprolol succinate 50 mg tablet extended release 24 hr 50 mg PO BID RF: 0 omeprazole 40 mg capsule,delayed release(DR/EC) 40 mg PO QHS RF: 0 hydroxyzine HCl 25 mg tablet 25 mg PO TID RF: 0 hydralazine 50 mg tablet 50 mg PO TID RF: 0 cholecalciferol (vitamin D3) 125 mcg (5,000 unit) Capsule 125 mcg PO DAILY RF: 0 Insulin Basal Pump (Pt's Own) [Pump, Basal] 1 unit subcut Q24 Qty: 0 RF: 0 prochlorperazine maleate [Compazine] 10 mg tablet 10 mg PO TID PRN (Reason: nausea and vomiting) Qty: 20 RF: 0 aspirin 81 mg Capsule,Delayed Release(Dr/Ec) 81 mg PO DAILY RF: 0 Acidophilus Capsule 2 cap PO BID RF: 0 Eliquis 5 mg tablet 2.5 mg PO BID RF: 0 promethazine 25 mg tablet 25 mg PO BID RF: 0 oxycodone 5 mg tablet 5 mg PO Q6H PRN (Reason: pain) 5 Days Qty: 20 RF: 0 albuterol sulfate 2.5 mg /3 mL (0.083 %) Solution For Nebulization 2.5 mg INHALATION Q2H PRN (Reason: Shortness Of Breath Or Wheezing) RF: 0 ondansetron HCl 4 mg Tablet 4 mg PO Q6H PRN (Reason: Nausea) RF: 0 ascorbic acid (vitamin C) 1,000 mg Tablet Extended Release 1,000 mg PO DAILY RF: 0 calcium acetate(phosphat bind) 667 mg Capsule 667 mg PO TIDCM Qty: 0 RF: 0 ofloxacin 0.3 % Drops 1 drp LEFT EYE 4X/DAY RF: 0 BromSite 0.075 % Drops 1 drp LEFT EYE QHS RF: 0 methylprednisolone [Medrol] 4 mg Tablet 4 mg PO DAILY RF: 0 Nepro Carb Steady 0.08 gram-1.8 kcal/mL Liquid 240 ml PO DAILY RF: 0 Discontinued gabapentin 100 mg Tablet 100 mg PO TID RF: 0 Referrals / Follow Up: Jhony Delgado MD [Primary Care Provider] - Within 2 Weeks Disposition Disposition (needs filled in before D/C Order can be placed): Home, Self Care Charges/Coding Addendum Addendum: Patient seen by Marck Mckee PA-C under my supervision Patient is a 58-year-old female with an extensive past medical history as outlined was admitted through the ED on 05/08/2021 with a complaint of worsening shortness of breath. Chest x-ray showed progressive right lower lobe infiltrate with a small right pleural effusion with stable left parenchymal changes. Chest x-ray was similar to previous imaging. She was admitted to be managed for pneumonia. Of note patient had been treated for pneumonia twice in the past few weeks. Of note she also had low blood pressure hemodialysis so could not be dialyzed. Nephrology was consulted for dialysis. Patient did not have a fever or productive cough or chills and her chest imaging was similar to previous imaging so patient was thought to be very unlikely to have pneumonia. ID was consulted and recommended the patient continue his Levaquin. She had dialysis and did well. Patient was [facility]. She is follow-up with her primary care doctor, ID and nephrology. Patient seen and examined prior to discharge. She complained of increased burning in her feet due to her neuropathy. Review systems otherwise negative. Labs and vitals reviewed. Home medication reviewed and reconciled. Her home gabapentin dose was increased from 100 mg 3 times daily to 300 mg 3 times daily on account of worsening neuropathy. O/E: Const alert, oriented x3 and no apparent distress General Appearance: cooperative HEENT normocephalic, head/scalp atraumatic, hearing grossly normal bilaterally and moist oral mucous membranes Eyes PERRL, EOMs intact bilaterally and conjunctivae normal Neck no lymphadenopathy, supple and no JVD Resp diminished breath sounds bibasally, no wheezes or crackles. On 3L of oxygen by nasal canula, which is her baseline. Cardio regular rate, regular rhythm, S1 normal heart sound, S2 normal heart sound and no murmurs GI normal to inspection, nondistended, normoactive bowel sounds and soft to palpation GI Narrative: abdominal dressing over surgical site Extremity normal to inspection, full ROM and no clubbing, cyanosis or edema Skin no rashes or lesions noted Neuro oriented x3, CN's II-XII intact bilaterally and moves all extremities Sensorium / Orientation: awake and alert Psych affect normal Plan is for discharge to his senior living facility today. Rest as per Marck Mckee PA-C's notes which I reviewed and endorsed Total time I spent on care of patient today: 35 mins Visit Charges Inpatient E&M: [id number] Disch Hosp
[2021-05-10 14:01] LABS: Pathologist Review Reviewed
[2021-05-10] MEDS: Gabapentin 300 MG Capsule PO (15:07)
--- NOTE | 2021-05-10 15:08 | CASEMGMT ---
Addendum entered by Jennifer Vallecillo 05/10/21 15:14: JINA Cindy Gagnon did fax over all discharge paperwork to [facility]. 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 WILDA Villalobos Original Note: Social Work SW set up a 6:30pm ambulance with [facility]. SW let pt know, she is agreeable to SW calling pt's daughter. SW called [facility], message left letting her know pt is leaving at 6:30pm. SW let pt's bedside RN know the time also. Message left for Glory at [facility], and SW also called [facility] and let the facility know pt is set up to leave at 6:30pm. WILDA Villalobos
--- NOTE | 2021-05-10 16:47 | NURSING ---
report called to Juno at [facility]
[2021-05-10 17:42] VITALS: BP 121/56; PULSE 70; RESP 16; TEMP 36.9; O2SAT 96
[2021-05-10 17:51] LABS: Bedside Glucose 209 mg/dL (70-110)
[2021-05-15 12:42] LABS: Pathologist Review Reviewed
== END 2021-05-10 19:29 | DRG 314 ==
LOC: ED 13:07 → MS3 13:33
PROVIDERS: Internal Medicine Infectious Disease; Physician Assistant; Admitting Provider Family Medicine; Emergency Provider Emergency Medicine; PCP Family Medicine; Visit Provider Student in an Organized Health Care Education/Training Program
DX: I95.9 Hypotension, unspecified (principal); J18.9 Pneumonia, unspecified organism; N18.6 End stage renal disease; I13.2 Hypertensive heart and chronic kidney disease with heart failure and with stage 5 chronic kidney disease, or end stage renal disease; J96.11 Chronic respiratory failure with hypoxia; I50.32 Chronic diastolic (congestive) heart failure; E87.1 Hypo-osmolality and hyponatremia; E10.40 Type 1 diabetes mellitus with diabetic neuropathy, unspecified; E10.51 Type 1 diabetes mellitus with diabetic peripheral angiopathy without gangrene; E10.649 Type 1 diabetes mellitus with hypoglycemia without coma; D63.8 Anemia in other chronic diseases classified elsewhere; Z99.2 Dependence on renal dialysis; I48.0 Paroxysmal atrial fibrillation; E10.22 Type 1 diabetes mellitus with diabetic chronic kidney disease; Z79.4 Long term (current) use of insulin; E78.5 Hyperlipidemia, unspecified; I25.10 Atherosclerotic heart disease of native coronary artery without angina pectoris; K21.9 Gastro-esophageal reflux disease without esophagitis; I25.2 Old myocardial infarction; Z87.891 Personal history of nicotine dependence; Z79.01 Long term (current) use of anticoagulants; Z96.41 Presence of insulin pump (external) (internal); Z79.82 Long term (current) use of aspirin; Z66 Do not resuscitate; Z79.899 Other long term (current) drug therapy; Z99.81 Dependence on supplemental oxygen; Z95.2 Presence of prosthetic heart valve; R62.7 Adult failure to thrive; Z68.28 Body mass index [BMI] 28.0-28.9, adult
CPT/HCPCS: 36415; 70450; 71045; 80048; 80053; 80076; 82140; 82962; 83605; 83735; 84100; 85025; 87040; 87426; 87641; 90937; 93005; 97162; 97166; 97530; 99251; 99285; J7030; J7040; A4216; G0257; G0463; J2405; Q5106

== ENCOUNTER 2021-05-13 09:04 | Inpatient (IN) | payer MEDICARE, MEDICAID, SELFPAY ==
--- NOTE | 2021-05-13 10:15 | RAD_ITS ---
STUDY: X-RAY CHEST REASON FOR EXAM: Female, 61 years old. WEAKNESS, SHORTNESS OF BREATH TECHNIQUE: Single AP portable view of the chest. COMPARISON: 05/08/2021. FINDINGS: Dual-chamber left-sided pacemaker is stable position. Improved aeration of the right lower lung. Prominence of the pulmonary vasculature and interstitial markings essentially unchanged. There is no demonstrated pleural abnormality. Sternal cerclage wires and vascular clips are present from a prior sternotomy and coronary artery bypass graft procedure (CABG). Normal mediastinum and damaris. Normal visualized pulmonary arteries. There is atherosclerotic calcification of the aortic arch with tortuosity. Stable soft tissues and osseous structures. There is no demonstrated abnormality of the visualized soft tissue structures of the upper abdomen. RAD/Chest 1 View (Portable) IMPRESSION: Improved aeration and decreased right basilar infiltrate. Otherwise no significant change. Electronically Signed: Jeremiah Alfaro, at 10:59 EST ,
--- NOTE | 2021-05-13 10:21 | EKG12_ITS ---
Test Reason : SOB Blood Pressure : / mmHG Vent. Rate : 090 BPM Atrial Rate : 090 BPM P-R Int : 188 ms QRS Dur : 134 ms QT Int : 448 ms P-R-T Axes : 079 155 027 degrees QTc Int : 548 ms Atrial-sensed ventricular-paced rhythm with occasional AV dual-paced complexes Abnormal ECG Confirmed by MAHESH RUSSO, JAYY ([id number]), make up editor SHELDON MERAZ ([id number]) on 05/15/2021 10:18:21 AM Referred By: KIRSTIE Confirmed By:JAYY ARAGON MD
--- NOTE | 2021-05-13 10:30 | CT_ITS ---
STUDY: CT BRAIN WITHOUT CONTRAST REASON FOR EXAM: Female, 61 years old. Weakness and confusion. RADIATION DOSAGE (If Supplied By Facility): CTDIvol = ( 44.99 ) mGy, DLP = ( 812.98 ) mGycm TECHNIQUE: Transaxial CT imaging of the brain was performed without administration of intravenous contrast material. Individualized dose optimization techniques were used for this CT. COMPARISON: 05/07/2021. FINDINGS: Normal soft tissue structures. Normal calvarium. There is mild cerebral atrophy with widening of the extra-axial spaces and ventricular dilatation. There are areas of decreased attenuation within the white matter tracts of the supratentorial brain, consistent with mild microvascular disease changes. Normal basal ganglia and thalami. Normal brainstem. Normal cerebellum. There is no intracranial hemorrhage. There are no findings of an acute ischemic infarction. Atherosclerotic is patient''s of the cavernous internal carotid arteries. Normal visualized paranasal sinuses. CT/Brain/Head without Contrast IMPRESSION: 1. Mild chronic involutional changes of the brain. 2. No acute intracranial process. 3. No significant change. The exam. 4. If symptoms persist, MRI of the brain is recommended.. Electronically Signed: Jeremiah Alfaro, at 10:56 EST ,
--- NOTE | 2021-05-13 13:34 | EDS_ITS ---
DATE OF SERVICE 05/13/21 CHIEF COMPLAINT: Shortness of breath and weakness. HISTORY OF PRESENT ILLNESS: The patient is a 61-year-old female who is sent in from [facility]. She has been on dialysis for the last 2 years. Reportedly, she has not been tolerating dialysis for the last 2 weeks due to low blood pressure. Today she had difficulty swallowing her medications. Daughter is with her at bedside and states that last night was a very bad. They called in Hospice last night. The patient at this time still wishes to try dialysis at least on Saturday to see if she can tolerate it before making a decision on Hospice care. The patient was recently admitted to the hospital with pneumonia as well as an elevated ammonia level. The daughter states that her mother is still confused this morning and is concerned that she is ruining her son's wedding which is supposed to be today. The daughter at the bedside states that there is no wedding today. PHYSICAL EXAMINATION: GENERAL: The patient is lying in bed in no acute distress. She is alert and answers questions. VITAL SIGNS: Blood pressure 98/44, temperature 98.3, heart rate 87, respiratory rate 20, pulse ox 92% on 4 liters. HEENT: Significantly dry mucous membranes. LUNGS: Clear. HEART: Regular rate and rhythm. ABDOMEN: Soft and nontender. EXTREMITIES: She does move all 4 extremities. DIAGNOSTIC DATA: EKG is paced at [address] changes. CBC shows a white count of 20 with a hemoglobin of 9.1. Chemistry studies revealed BUN 25, creatinine 4.01. Ammonia 28, which is normal. Troponin is 64. Portable chest x-ray reveals mild vascular congestion. Head CT shows mild chronic involutional changes with no acute process. EMERGENCY DEPARTMENT COURSE AND MEDICAL DECISION MAKING: The patient did receive a small IV fluid bolus here for borderline hypotension. Nurse did attempt to give the patient a glass of water She states that she choked when trying to swallow this. Test results are discussed with the patient and daughter at bedside. Daughter met with social services technician today and paperwork was signed to make her medical power of erisa attorney. We discussed code status and the daughter thought the patient would want DNR comfort care arrest with no intubation. IMPRESSION: Dysphagia. Confusion. DISPOSITION: Admit. PLAN: At this time, they are interested in further evaluation with MRI to see if she may have had a stroke that caused her current dysphagia. They are interested in working with speech therapy. If she does this as well as dialysis on Saturday they will further evaluate whether they wish to continue with hospice or not. I will speak with the hospitalist.
--- NOTE | 2021-05-13 14:20 | HP_ITS ---
DATE OF ADMISSION May 13, 2021 CHIEF COMPLAINT [Unable to swallow] HISTORY OF PRESENT ILLNESS Patient is 61-year-old who presents from [facility] with significant failure to thrive and trouble swallowing as well as confusion. Patient was discharged from [facility] on May 10 and ever since she returned to the [facility] she has not been normal. Family says she is confused half the time and she has been barely eating anything. Does not sleep well. Family did have a hospice consult in the [facility] and they evaluated the patient, however the patient continued to desired dialysis and hospice told them they would need to go to the hospital if this was the case. Their hospice policy means the patient would need to go off dialysis. Patient did not tolerate her dialysis session well on Saturday and they stopped it prematurely. Patient was brought in with the hope of being able to improve swallowing and having a dialysis session. Per ED discussion with the family they would be more inclined to pursue hospice if she indeed fails her next dialysis session. On presentation to the ED her blood pressure was 99/61 and her respirations were 14, heart rate of 86 and she was saturating 94% on 4 L. She is on 3 L oxygen at baseline. No hyperkalemia or urgent need for dialysis, no focal deficits to suggest a stroke and her CT head was unrevealing for acute changes. PAST MEDICAL HISTORY Anemia Arthritis Atrial fibrillation CAD (coronary artery disease) Cataract Chest pain CHF (congestive heart failure) CHF exacerbation Chronic pain CKD (chronic kidney disease) CKD (chronic kidney disease) stage V requiring chronic dialysis Depression Diabetes Dialysis patient ESRD (end stage renal disease) ESRD (end stage renal disease) on dialysis Former tobacco use Gallbladder sludge GERD (gastroesophageal reflux disease) Hip pain, left HTN (hypertension) HTN (hypertension) Hyperlipidemia Hyponatremia Hypoxia ICD (implantable cardioverter-defibrillator) in place Myocardial infarct On home oxygen therapy Pacemaker PAF (paroxysmal atrial fibrillation) Pancreatitis TIA (transient ischemic attack) PAST SURGICAL HISTORY History of appendectomy History of arteriovenous graft History of heart artery stent History of mitral valve replacement Hx of CABG MEDICATIONS atorvastatin 40 mg PO QHS 11/25/20 cholecalciferol (vitamin D3) 125 mcg PO DAILY 11/25/20 furosemide 40 mg PO BID 11/25/20 hydralazine 50 mg PO TID 11/25/20 hydroxyzine HCl 25 mg PO TID 11/25/20 metoprolol succinate 50 mg PO BID 11/25/20 omeprazole 40 mg PO QHS 11/25/20 Insulin Basal Pump (Pt's Own) [Pump, Basal] 1 unit SUBCUT Q24 #0 12/06/20 prochlorperazine maleate [Compazine] 10 mg PO TID PRN #20 tab 12/18/20 Acidophilus 2 cap PO BID 03/02/21 Eliquis 2.5 mg PO BID 03/02/21 aspirin 81 mg PO DAILY 03/02/21 promethazine 25 mg PO BID 03/02/21 oxycodone 5 mg PO Q6H PRN 5 Days #20 tab 03/03/21 albuterol sulfate 2.5 mg INHALATION Q2H PRN 03/22/21 ascorbic acid (vitamin C) 1,000 mg PO DAILY 04/18/21 ondansetron HCl 4 mg PO Q6H PRN 04/18/21 calcium acetate(phosphat bind) 667 mg PO TIDCM #0 cap 04/24/21 BromSite 1 drp LEFT EYE QHS 05/07/21 ofloxacin 1 drp LEFT EYE 4X/DAY 05/07/21 methylprednisolone [Medrol] 4 mg PO DAILY 05/08/21 Nepro Carb Steady 240 ml PO DAILY 05/09/21 gabapentin 300 mg PO TID #90 cap 05/10/21 midodrine 10 mg PO TIDCM #90 tab 05/10/21 ALLERGIES Amoxicillin, penicillin benzonateate SOCIAL HISTORY Lives in [facility], former smoker, not smoking now FAMILY HISTORY Mother Hypertension Diabetes Heart disease Father Heart disease Hypertension Diabetes Kidney disease REVIEW OF SYSTEMS no fevers chills nausea or vomiting, chest pain or racing . she does have shortness of breath and polyneuropathy symptoms in her legs. She does have trouble swallowing. No trouble seeing hearing. No abdominal pain or significant diarrhea constipation or dysuria. No trouble with skin muscles or joints otherwise PHYSICAL EXAM Physical Exam Const alert, oriented and has dry mucous membranes. She is mildly lethargic. General Appearance: cooperative Exam Limitations: no limitations HEENT normocephalic and head/scalp atraumatic Eyes PERRL and EOMs intact bilaterally Neck supple and No nodes Resp Resp Narrative: Good air movement with some crackles on the right side. Did not appreciate any wheezing Cardio regular rate and regular rhythm GI soft to palpation, non-tender and non-distended Extremity Extremity Narrative: Feet diffusely quite tender to touch, minimal redness, some swelling, no woun ds/ulcers. General Extremity: edema Skin mottled appearance in legs that are cooler to touch Skin Narrative: no other rash PERTINENT DIAGNOSTIC FINDINGS Cr 4.01. WBC of 20k. Trop is normal at 64 and ammonia is 28 Chest x-ray showed mild congestion in the CT head did not show any acute changes Assessement and Plan #1. Adult FTT secondary to Acute ? Recurrent Pneumonia, RLL with small R pleural effusion with Chronic Hypoxic Respiratory Failure (2-4L NC) with Hypotension with possible mild component #2: Will admit to PCU, maintain on oxygen with wean as tolerated to home oxygen supplementation, continue ATC duonebs, PRN albuterol, maintained on IV Levaquin and Vancomycin as she has rising white count with hypotension & trouble breathing with CXR findings of congestion, HOB, IS parameters w/ pending sputum Bld cx x 2 NPO as she failed her swallow eval. Reassess daily. Consult speech therapy and hospice and case management, so that goals of care and family meeting can take place regarding future hospice discussions #2. Chronic diastolic CHF w/ potential mild exacerbation/overload secondary to Missed HD: 11/25/2020 echocardiogram with normal LV systolic function, EF 55%, mildly dilated RV, mild global RV systolic dysfunction, moderately enlarged RA, stable appearing bioprosthetic MV apparatus, trivial transvalvular insufficiency of the mitral valve, moderate TVI, mild TVI, RVSP 45 mmHg. Continue aspirin, low-dose Eliquis, statin, holding HTN regimen including BB and hydralazine given hypotensive presentation, add back once appropriate. Nephrology consulted for potential HD with midodrine started. No diuretics at this time. #3. Hx CVA: Prior visit 11/2020 with TIA, CT with noted age-indeterminate infarcts in the right parietal lobe and bilaterally in the cerebellum, unable to have MRI given pacer status, continue asa, low dose eliquis, statin, holding HTN regimen secondary to hypotensive presentation as noted, add back once appropriate. CT head 05/13 shows no new changes. #4. ESRD: Patient on hemodialysis, AVF in place, following with Dr. Manrique during most recent visit and prior noted Dr. Mohan, dialysis normally MWF with HD unable to be performed to completion on Saturday session -Consult nephrology and attempt dialysis on Saturday and if she does not tolerate, continue intensive goals of care discussion #5. CAD, PAD: Status post prior CABG and PCI, will continue patient asa, low- dose Eliquis, statin Holding hypertensive regimen given presentation with hypotension as noted, add back once appropriate. #6. Valvular heart disease: Patient status post MVR, echo as noted above. #7. Hypertension: At this point she is hypotensive and we will continue midodrine 10 3 times daily holding all antihypertensives - Hold lasix #8. Hyperlipidemia: Continue home statin regimen. #9. Chronic normocytic anemia/AOCD: Admission hemoglobin 9.2, baseline prior 9- 10, stable, trend. #10. PAF: We will continue patient home low-dose Eliquis regimen, holding home metoprolol regimen given hypotension . #11. Diabetes mellitus type II: We will continue accu checks w/ ISS, hold basal insulin until she can tolerate diet. #12 GERD: We will continue patient home PPI. #13. DVT prophylaxis: SCDs, continue home eliquis regimen. Patient is a DNR cca Sukhi Matthias code 17699
[2021-05-13 21:19] LABS: Absolute Lymphocyte Count 1.29 X10^3/uL (0.83-4.51); Absolute Neutrophil Count 15.8 X10^3/uL (2.0-7.7); Basophil# 0.12 X10^3/uL; Basophil% 0.6 % (0-1); Eosinophil# 0.29 X10^3/uL; Eosinophils% 1.4 % (0-5); Hematocrit 28.9 % (37-47); Hemoglobin 9.1 g/dL (12.0-15.0); Lymphocyte # 1.29 X10^3/ul (0.83-4.51); Lymphocyte % 6.3 % (19-41); Mean Corp Hgb Conc 31.5 g/dL (32-36); Mean Corpuscular Hgb 30.5 pg (27.0-32.0); Mean Platelet Vol. 10.6 fl (6.2-12.0); Monocyte# 2.57 X10^3/uL; Monocyte% 12.6 % (0-10); NRBC Flagged by Analyzer 0.5 % (0-5); Neutrophil # 15.77 X10^3/uL (2.7-7.7); Neutrophil % 77.5 % (47-70); POSITIVE DIFFERENTIAL YES; Platelet Count 444 K/mm3 (150-450); RBC Distribution Width CV 18.7 % (11.6-14.6); RBC Distribution Width SD 64.5 fl (35.1-43.9); Red Blood Count 2.98 M/mm3 (4.2-5.4); White Blood Count 20.4 K/mm3 (4.4-11.0)
[2021-05-13 21:20] LABS: Differential Indicated SCAN CRITERIA MET
[2021-05-13 21:21] LABS: Differential Comment SCANNED; Pathologist Review May foll
[2021-05-13] MEDS: levoFLOXacin IV 750 MG/150 ML BAG 100 MG IV (22:15)
[2021-05-13 22:30] LABS: Bedside Glucose 143 mg/dL (70-110)
[2021-05-13 23:46] VITALS: BP 89/48; PULSE 88; RESP 18; TEMP 36.6; O2SAT 93
[2021-05-14] VITALS (13 sets, daily range): BP systolic 90–107; BP diastolic 40–56; PULSE 78–99; RESP 16–22; TEMP 36.5–37.3; O2SAT 91–96
[2021-05-14 01:22] LABS: BUN 25 mg/dL (7-18); Creatinine, Serum 4.01 mg/dL (0.55-1.02); Estimated Creatinine Clearance 15.01 ml/min; Glucose 109 mg/dL (74-106)
[2021-05-14 01:23] LABS: AST(SGOT) 22 U/L (15-37); Alanine Aminotransfer ALT/SGPT 10 U/L (13-56); Albumin, Serum 1.9 g/dL (3.2-5.0); Alkaline Phosphatase 359 U/L (45-117); Anion Gap 9 (5-15); BUN/Creat Ratio 6.2 RATIO (10-20); Bilirubin, Direct 0.34 mg/dL (0.00-0.30); Calcium,Total 8.1 mg/dL (8.5-10.1); Chloride 97 mmol/L (98-107); EST Glomerular Filtration Rate 12 mL/min (>60); Est Glom Filt Rate - Afr Amer 15 mL/min (>60); Globulin 5.5 g/dL (2.2-4.2); Potassium 3.9 mmol/L (3.5-5.1); Protein, Total 7.4 g/dL (6.4-8.2); Sodium Level 135 mmol/L (136-145); Troponin-I HS 64 pg/mL (3.0-54.0)
[2021-05-14] MEDS: Ipratropium/Albuterol Sulfate 3 ML AMPUL.NEB INHALATION ×4 (01:29→21:13)
[2021-05-14] MEDS: fentaNYL 100 MCG/2 ML Ampul 25 MCG IV ×4 (01:48→16:00)
[2021-05-14 05:54] LABS: Absolute Lymphocyte Count 1.13 X10^3/uL (0.83-4.51); Absolute Neutrophil Count 15.5 X10^3/uL (2.0-7.7); Basophil# 0.09 X10^3/uL; Basophil% 0.5 % (0-1); Eosinophil# 0.26 X10^3/uL; Eosinophils% 1.3 % (0-5); Hematocrit 27.9 % (37-47); Hemoglobin 8.6 g/dL (12.0-15.0); Lymphocyte # 1.13 X10^3/ul (0.83-4.51); Lymphocyte % 5.7 % (19-41); Mean Corp Hgb Conc 30.8 g/dL (32-36); Mean Corpuscular Volume 97.2 fL (81-99); Mean Platelet Vol. 10.7 fl (6.2-12.0); Monocyte# 2.24 X10^3/uL; Monocyte% 11.4 % (0-10); NRBC Flagged by Analyzer 0.7 % (0-5); Neutrophil # 15.52 X10^3/uL (2.7-7.7); Neutrophil % 78.7 % (47-70); POSITIVE DIFFERENTIAL YES; Platelet Count 402 K/mm3 (150-450); RBC Distribution Width CV 18.5 % (11.6-14.6); Red Blood Count 2.87 M/mm3 (4.2-5.4); White Blood Count 19.7 K/mm3 (4.4-11.0)
--- NOTE | 2021-05-14 06:52 | PCM.RX.CS ---
Consult Pharmacy has been consulted to manage selected antiobiotic: Vancomycin Type of Consult: New start Goal Trough: 15-20 mcg/mL Pharmacy Plan for Drug Dosing: Pharmacy Service will continue to monitor and adjust dosing as required. Medications Vancomycin HCl 750 mg/ Sodium (Chloride) 265 mls @ 250 mls/hr IV X1 ONE Stop: 05/15/21 13:03 Discontinued Medications Vancomycin HCl 1,250 mg/ (Sodium Chloride) 275 mls @ 167 mls/hr IV X1 ONE Stop: 05/14/21 03:08 Last Admin: 05/14/21 04:12 Dose: Infused Documented by: FIRST DOSE NOW, NEXT DOSE AFTER NEXT DIALYSIS (SATURDAY) AND TROUGH PRIOR TO FOLLOWING DIALYSIS Follow-Up Labs: Trough Vancomycin Labs to be done on [date and time ordered]: 05/17 PRIOR TO DIALYSIS
[2021-05-14 06:59] LABS: Differential Indicated SCAN CRITERIA MET
[2021-05-14 07:04] LABS: ALB/GLOB Ratio 0.3 RATIO (0.9-2.4); AST(SGOT) 22 U/L (15-37); Alanine Aminotransfer ALT/SGPT 8 U/L (13-56); Albumin, Serum 1.7 g/dL (3.2-5.0); Alkaline Phosphatase 332 U/L (45-117); Anion Gap 10 (5-15); BUN 32 mg/dL (7-18); BUN/Creat Ratio 6.8 RATIO (10-20); Calcium,Total 8.1 mg/dL (8.5-10.1); Chloride 99 mmol/L (98-107); EST Glomerular Filtration Rate 10 mL/min (>60); Est Glom Filt Rate - Afr Amer 12 mL/min (>60); Globulin 5.3 g/dL (2.2-4.2); Glucose 143 mg/dL (74-106); Magnesium 2.4 mg/dL (1.6-2.6); Potassium 4.3 mmol/L (3.5-5.1); Sodium Level 133 mmol/L (136-145)
[2021-05-14 07:35] LABS: Anisocytosis 1+
--- NOTE | 2021-05-14 09:20 | PN.HOSP_ITS ---
Subjective Subjective Patient was admitted with failure to thrive, trouble swallowing, confusion and could not tolerate the dialysis. The patient is admitted in PCU. Complain of pain over both lower legs. Objective Data Objective Data Vital Signs: Vital Signs Temp Pulse Resp BP Pulse Ox 97.7 F L 95 18 107/45 L 96 05/14/21 08:00 05/14/21 08:00 05/14/21 08:00 05/14/21 08:00 05/14/21 08:00 Oxygen Flow Rate (L/min) 3 Oxygen Delivery Method Nasal Cannula Weight: 171 lb 15.369 oz Intake & Output: Intake and Output for Last 24 Hours 05/12/21 05/13/21 05/14/21 23:59 23:59 23:59 Intake Total 275 / 275 Balance 275 / 275 Lab / Micro Data Result Diagrams: 05/14/21 05:15 05/14/21 05:15 Labs: Laboratory Results - last 24 hr 05/13/21 11:15: WBC 20.4 H, RBC 2.98 L, Hgb 9.1 L, Hct 28.9 L, MCV 97.0, MCH 30.5, MCHC 31.5 L D, RDW Std Deviation 64.5 H, RDW Coeff of Grazyna 18.7 H, Plt Count 444, MPV 10.6, Immature Gran % (Auto) 1.600 H, Neut % (Auto) 77.5 H, Lymph % (Auto) 6.3 L, [place] % (Auto) 12.6 H, Eos % (Auto) 1.4, Baso % (Auto) 0.6, Absolute Neuts (auto) 15.8 H, Absolute Lymphs (auto) 1.29, Nucleated RBC % 0.5, Differential Comment SCANNED, Diff Path Review August05/13/21 11:15: Sodium 135 L, Potassium 3.9, Chloride 97 L, Carbon Dioxide 29.0, Anion Gap 9, BUN 25 H, Creatinine 4.01 H, Estim Creat Clear Calc 15.01, Est GFR (MDRD) Af Amer 15 L, Est GFR (MDRD) Non-Af 12 L, BUN/Creatinine Ratio 6.2 L, Glucose 109 H, Calcium 8.1 L, Total Bilirubin 0.60, Direct Bilirubin 0.34 H, AST 22, ALT 10 L, Alkaline Phosphatase 359 H, Troponin I High Sens 64 H, Total Pr otein 7.4, Albumin 1.9 L, Globulin 5.5 H 05/13/21 11:15: Ammonia 28.0 05/13/21 22:24: POC Glucose 143 H 05/14/21 05:15: WBC 19.7 H, RBC 2.87 L, Hgb 8.6 L, Hct 27.9 L, MCV 97.2, MCH 30.0, MCHC 30.8 L, RDW Std Deviation 64.0 H, RDW Coeff of Grazyna 18.5 H, Plt Count 402, MPV 10.7, Immature Gran % (Auto) 2.400 H, Neut % (Auto) 78.7 H, Lymph % (Auto) 5.7 L, [place] % (Auto) 11.4 H, Eos % (Auto) 1.3, Baso % (Auto) 0.5, Absolute Neuts (auto) 15.5 H, Absolute Lymphs (auto) 1.13, Nucleated RBC % 0.7, Diff Path Review May foll, Anisocytosis 1+ 05/14/21 05:15: Sodium 133 L, Potassium 4.3, Chloride 99, Carbon Dioxide 24.0, Anion Gap 10, BUN 32 H, Creatinine 4.70 H, Estim Creat Clear Calc 12.80, Est GFR (MDRD) Af Amer 12 L, Est GFR (MDRD) Non-Af 10 L, BUN/Creatinine Ratio 6.8 L, Glucose 143 H, Calcium 8.1 L, Magnesium 2.4, Total Bilirubin 0.70, AST 22, ALT 8 L, Alkaline Phosphatase 332 H, Total Protein 7.0, Albumin 1.7 L, Globulin 5.3 H, Albumin/Globulin Ratio 0.3 L Radiography Diagnostic Testing: Radiology Impression Chest X-Ray 05/13/21 10:15 IMPRESSION: Improved aeration and decreased right basilar infiltrate. Otherwise no significant change. Electronically Signed: Jeremiah Alfaro, at 10:59 EST , Brain CT 05/13/21 10:30 IMPRESSION: 1. Mild chronic involutional changes of the brain. 2. No acute intracranial process. 3. No significant change. The exam. 4. If symptoms persist, MRI of the brain is recommended.. Electronically Signed: Jeremiah Alfaro, at 10:56 EST , Physical Exam Narrative General: Intermittent confusion and disorientation. Complain of pain in lower legs. Mild protein calorie malnutrition HEENT: Atraumatic, PERRLA, EOMI, Normocephalic Oral: Oral mucosa dry Neck: Supple, No JVD, Negative Carotid Bruits Lungs: Air entry diminished in bilateral lung bases. Mild right basilar crepitation. No wheezing Cardiovascular: slitter cut off operator shows paced rhythm.Normal S1, Normal S2, No murmurs Abdomen: Bowel Sounds Present, Soft, Non Tender, Non-Distended : No renal angle tenderness. No suprapubic tenderness. Extremities: No edema, Capillary Refill Less than 3 Seconds Skin: No rashes, No breakdown Musculoskeletal: Tenderness present on superficial touch to both legs. ROM restricted Neurological: Cranial nerves II-XII grossly intact, DTR 2+/4 more detailed neuro exam unobtainable Psych/Mental Status: Anxious, confused, flat affect Assessment & Plan Assessment/Plan (1) Failure to thrive: QUALIFIERS: Failure to thrive age range: in adult Qualified Code(s): R62.7 - Adult failure to thrive PLAN: 1.. Adult FTT secondary with multiple comorbidities along with recurrent Pneumonia, RLL with small R pleural effusion with Chronic Hypoxic Respiratory Failure (2-4L NC) with Hypotension and heart failure: Patient is admitting in PCU. Chest x-ray shows right basilar infiltrate and small right pleural effusion, improved in the previous chest x-ray 05/07/2021. Patient is on IV Levaquin and vancomycin. On oxygen, DuoNeb, clear liquid diet. Speech therapy is consulted. As per H&P, ER had a discussion with patient's family and want to pursue hospice care. The patient was evaluated by hosp[facility] in [facility]. Patient wanted to continue dialysis but this is not the option for hospice patients. Patient is not able to tolerate her dialysis. Patient also had swallowing problem and speech therapy she is ordered. She could not tell me where there is difficulty of swallowing whether esophagus or mouth/pharynx. Poor historian. #2. Chronic diastolic CHF w/ potential mild exacerbation/overload secondary to Missed HD: 11/25/2020 echocardiogram with normal LV systolic function, EF 55%, mildly dilated RV, mild global RV systolic dysfunction, moderately enlarged RA, stable appearing bioprosthetic MV apparatus, trivial transvalvular insufficiency of the mitral valve, moderate TVI, mild TVI, RVSP 45 mmHg. No diuretics at this time. #3. CVA: Prior visit 11/2020 with TIA, CT with noted age-indeterminate infarcts in the right parietal lobe and bilaterally in the cerebellum, unable to have MRI given pacer status, continue asa, low dose eliquis, statin, holding HTN regimen secondary to hypotensive presentation as noted, add back once appropriate. CT head 05/13 shows no new changes. #4. ESRD: Patient on hemodialysis, through AV fistula. [place] music video director is consulted. MWF regimen but dialysis cannot perform to completion on last Saturday. On midodrine #5. CAD, PAD: Status post prior CABG and PCI. Continue aspirin, low-dose Eliquis, statin, hold antihypertensive including beta-radhika as patient was hypotensive in ED. Still systolic blood pressure is 107 mmHg. #6. Valvular heart disease: Patient status post MVR, echo as noted above. #7. Hypertension: At this point she is hypotensive and we will continue midodrine 10 3 times daily holding all antihypertensives - Hold lasix #8. Hyperlipidemia: Continue home statin regimen. #9. Chronic normocytic anemia/AOCD: Admission hemoglobin 9.2, baseline prior 9- 10, stable, trend. #10. PAF: We will continue patient home low-dose Eliquis regimen, holding home metoprolol regimen given hypotension . #11. Diabetes mellitus type II: We will continue accu checks w/ ISS, hold basal insulin until she can tolerate diet. #12 GERD: We will continue patient home PPI. #13. DVT prophylaxis: SCDs, continue home eliquis regimen. The patient is DNR CC arrest with no intubation. Hospice consulted. Charges/Coding Visit Charges Inpatient E&M: 31857 Subs Hosp L2
--- NOTE | 2021-05-14 09:56 | PCS.PANDOC ---
PANDEMIC DOCUMENTATION INITIATED: Date: 11/28/2020 Time: 190
--- NOTE | 2021-05-14 10:14 | CASEMGMT ---
RN CM Assessment Introduced role of RN CM to patient daughter Leena and son massimo via phone conversation. Agreed to participate in RNCM IA at this time. Care providers, pharmacy, and demographics verified. Admit Dx: Weakness, Dysphagia Re-Admit: No Barriers/Issues: Patient Fell last year and went to [facility] as skilled at end of January/beginning of February. Per dtr- patient has not progressed and has deconditioned since Matt and after having PNA. PCP: Was Dr Alphonse Marr in [place] prior to [facility]. States Danny may be the provider that rounds at [facility]. Specialists: Cardio- Marck Bailey, Nephro- Harris Glynn, Endo- Celso Moss Preferred Pharmacy: [facility]. Patient does get her Insulin through [facility] in [place]. [facility] Rx Benefit: Yes LNOK: Dtr Leena Mesa, Emeka Mesa LW/HPOA: Per dtr Leena- states just completed HPOA in the hospital yesterday and she is the primary HPOA. Living Arrangements: Prior to [facility] patient had lived with her whom is still alive. ADL?s: Prior to Fall and going to [facility] skilled, patient ambulated with rollator and was independent with ADLs. Per dtr- patient was not a surgical candidate at time of fall d/t patient health history. Patient is currently Bed bound/Total assist since deconditioning. [facility] Patient gets HD M[facility]F at [facility]. Goal: TBD as per Dtr- plan is to see if patient can do HD tomorrow. Will re-round with plan after to see if plan to return to [facility] vs. change in plan. DC PLAN: TBD. JASSI Howell
[2021-05-14 12:05] LABS: Bedside Glucose 154 mg/dL (70-110)
[2021-05-14 13:16] LABS: Bedside Glucose 144 mg/dL (70-110)
[2021-05-14 13:26] LABS: Bedside Glucose 93 mg/dL (70-110)
[2021-05-14] MEDS: Dext 5%-0.45% NS 1,000 ML 30 ML IV (13:32)
[2021-05-14 14:26] LABS: Bedside Glucose 158 mg/dL (70-110)
[2021-05-14 14:48] LABS: CPK Total, Creatine Kinase 121 U/L (26-192)
[2021-05-14] MEDS: Insulin Lispro 100 UNIT/ML INSULN.PEN SC ×2 (17:25→22:07)
[2021-05-14 17:36] LABS: Bedside Glucose 196 mg/dL (70-110)
[2021-05-14] MEDS: APIXABAN 2.5 MG TABLET PO (20:28)
[2021-05-14] MEDS: Gabapentin 100 MG Capsule PO (20:28)
[2021-05-14] MEDS: Midodrine HCl 5 MG Tablet 10 MG PO (20:28)
[2021-05-14] MEDS: Atorvastatin Calcium 40 MG Tablet PO (20:28)
[2021-05-14 22:11] LABS: Bedside Glucose 200 mg/dL (70-110)
[2021-05-15] VITALS (14 sets, daily range): BP systolic 98–113; BP diastolic 36–56; PULSE 79–92; RESP 12–22; TEMP 36.2–36.8; O2SAT 94–100
[2021-05-15] MEDS: Gabapentin 100 MG Capsule PO ×3 (05:06→21:25)
[2021-05-15] MEDS: Midodrine HCl 5 MG Tablet 10 MG PO ×3 (05:06→21:26)
[2021-05-15] MEDS: Insulin Lispro 100 UNIT/ML INSULN.PEN SC ×4 (06:34→21:31)
[2021-05-15 06:41] LABS: Bedside Glucose 209 mg/dL (70-110)
[2021-05-15 07:18] LABS: Absolute Lymphocyte Count 0.94 X10^3/uL (0.83-4.51); Absolute Neutrophil Count 21.1 X10^3/uL (2.0-7.7); Basophil# 0.11 X10^3/uL; Basophil% 0.4 % (0-1); Eosinophil# 0.25 X10^3/uL; Hematocrit 25.9 % (37-47); Hemoglobin 8.3 g/dL (12.0-15.0); Lymphocyte # 0.94 X10^3/ul (0.83-4.51); Lymphocyte % 3.6 % (19-41); Mean Corpuscular Hgb 30.7 pg (27.0-32.0); Mean Corpuscular Volume 95.9 fL (81-99); Mean Platelet Vol. 10.3 fl (6.2-12.0); Monocyte# 2.71 X10^3/uL; Monocyte% 10.5 % (0-10); NRBC Flagged by Analyzer 0.6 % (0-5); Neutrophil # 21.11 X10^3/uL (2.7-7.7); Neutrophil % 81.8 % (47-70); POSITIVE DIFFERENTIAL YES; Platelet Count 342 K/mm3 (150-450); RBC Distribution Width CV 18.2 % (11.6-14.6); RBC Distribution Width SD 61.6 fl (35.1-43.9); White Blood Count 25.8 K/mm3 (4.4-11.0)
[2021-05-15 07:22] LABS: Differential Indicated SCAN CRITERIA MET
[2021-05-15] MEDS: Ipratropium/Albuterol Sulfate 3 ML AMPUL.NEB INHALATION ×3 (07:27→19:15)
[2021-05-15 07:43] LABS: Anion Gap 10 (5-15); BUN 44 mg/dL (7-18); BUN/Creat Ratio 7.5 RATIO (10-20); Calcium,Total 7.9 mg/dL (8.5-10.1); Chloride 98 mmol/L (98-107); EST Glomerular Filtration Rate 8 mL/min (>60); Est Glom Filt Rate - Afr Amer 9 mL/min (>60); Glucose 199 mg/dL (74-106); Magnesium 2.2 mg/dL (1.6-2.6); Phosphorus 6.1 mg/dL (2.5-4.9); Potassium 4.5 mmol/L (3.5-5.1); Sodium Level 134 mmol/L (136-145)
[2021-05-15] MEDS: Aspirin 81 MG TAB.CHEW PO (08:03)
[2021-05-15] MEDS: Cholecalciferol (VIT D3) 25 MCG TABLET (1,000 UNITS) 125 MCG PO (10:19)
[2021-05-15] MEDS: APIXABAN 2.5 MG TABLET PO ×2 (10:20→21:26)
[2021-05-15] MEDS: Pantoprazole Sodium 40 MG Tablet PO (10:20)
--- NOTE | 2021-05-15 10:50 | CASEMGMT ---
Patient is from [facility]. JINA called Glory with [facility] and left her a voice mail regarding patient. JINA also faxed updates to Glory. JINA will verify with patient that her plan is to return to [facility]. Plan: d/c back to [facility]. Ana REYES
[2021-05-15] MEDS: Vancomycin IV 500 MG/100 ML BAG 100 MG IV (11:44)
[2021-05-15 12:01] LABS: Bedside Glucose 181 mg/dL (70-110)
[2021-05-15 12:46] LABS: Pathologist Review Reviewed
[2021-05-15 12:47] LABS: Pathologist Review Reviewed
[2021-05-15] MEDS: oxyCODONE 5 MG Tablet PO (13:42)
--- NOTE | 2021-05-15 14:23 | CASEMGMT ---
JINA spoke with Glory with [facility]. Patient does not need a prior authorization to return. JINA will follow for discharge back to [facility]. Ana REYES
--- NOTE | 2021-05-15 14:42 | CASEMGMT ---
RN came to JINA and said patient would like Hospice. Patient said she is done with dialysis. SW met with patient in her room and she confirmed she would like to talk with Hospice. SW asked patient if she would like Hospice to call her daughter to set up a meeting. Patient said that is fine. SW called Hospice and spoke to Ta regarding referral. SW also faxed information. Await return call regarding meeting. Ana Wilson BLOWER FEEDER DYED RAW STOCK ERIC
--- NOTE | 2021-05-15 16:17 | PN.HOSP_ITS ---
Subjective Subjective Patient is much more lucid today than she was yesterday per discussion with nursing staff. The patient acknowledges that she has had multiple admissions and that she is intermittently not tolerating dialysis. I did discuss with her hospice again and she states that she is willing to discuss her case with them. She is due for dialysis today and is interested in seeing how she does with this. Objective Data Objective Data Vital Signs: Vital Signs Temp Pulse Resp BP Pulse Ox 98.1 F 79 12 109/41 L 98 05/15/21 13:10 05/15/21 15:00 05/15/21 13:36 05/15/21 13:10 05/15/21 14:00 Oxygen Flow Rate (L/min) 5 Oxygen Delivery Method Nasal Cannula Weight: 78 kg Intake & Output: Intake and Output for Last 24 Hours 05/13/21 05/14/21 05/15/21 23:59 23:59 23:59 Intake Total 125 / 125 385 / 385 210 / 210 Output Total 0 / 0 0 / 0 Balance 125 / 125 385 / 385 210 / 210 Lab / Micro Data Result Diagrams: 05/15/21 06:56 05/15/21 06:56 Labs: Laboratory Results - last 24 hr 05/14/21 05:15: Diff Path Review Reviewed 05/14/21 17:20: POC Glucose 196 H 05/14/21 22:06: POC Glucose 200 H 05/15/21 06:32: POC Glucose 209 H 05/15/21 06:56: WBC 25.8 H, RBC 2.70 L, Hgb 8.3 L, Hct 25.9 L, MCV 95.9, MCH 30.7, MCHC 32.0, RDW Std Deviation 61.6 H, RDW Coeff of Grazyna 18.2 H, Plt Count 342, MPV 10.3, Immature Gran % (Auto) 2.700 H, Neut % (Auto) 81.8 H, Lymph % (Auto) 3.6 L, [place] % (Auto) 10.5 H, Eos % (Auto) 1.0, Baso % (Auto) 0.4, Ab solute Neuts (auto) 21.1 H, Absolute Lymphs (auto) 0.94, Nucleated RBC % 0.6, Differential Comment COMMENT, Diff Path Review Reviewed 05/15/21 06:56: Sodium 134 L, Potassium 4.5, Chloride 98, Carbon Dioxide 26.0, Anion Gap 10, BUN 44 H, Creatinine 5.90 H, Estim Creat Clear Calc 10.20, Est GFR (MDRD) Af Amer 9 L, Est GFR (MDRD) Non-Af 8 L, BUN/Creatinine Ratio 7.5 L, Glucose 199 H, Calcium 7.9 L, Phosphorus 6.1 H, Magnesium 2.2 05/15/21 11:44: POC Glucose 181 H Physical Exam Const alert, oriented x3 and no apparent distress Constitutional Narrative: Slightly overweight upper middle-aged white female sitting up in bed, nursing at bedside, patient appears much older than stated age, nontoxic Exam Limitations: no limitations HEENT head/scalp atraumatic and moist oral mucous membranes HEENT Narrative: Dentures in place upper no dentures on bottom, Mallampati is 2- 3, no thrush present Head and Scalp: normocephalic Resp normal respiratory effort, no retractions, no use of accessory muscles and clear to auscultation bilaterally Resp Narrative: Diminished at bases bilaterally but no adventitious sounds Auscultation: Negative for crackles, rales, rhonchi or wheezes Cardio regular rate, regular rhythm, S1 normal heart sound, S2 normal heart sound, no rub, no gallops, no clicks and no JVD; Negative for no murmurs Cardio Narrative: 2 out of 6 systolic murmur GI normal to inspection, nondistended, normoactive bowel sounds, soft to palpation, non-tender and non-distended Extremity Extremity Narrative: Slight extremity edema with erythema at bilateral feet on dorsum and plantar surface that extends some up into the shins bilaterally, very tender, no clubbing or cyanosis, right upper extremity fistula with bruit and thrill Peripheral Pulses: Yes pulses 2+ throughout Neuro oriented x3, CN's II-XII intact bilaterally, moves all extremities and no focal motor deficits Neuro Narrative: Marked generalized weakness Sensorium / Orientation: awake and alert Speech: speech normal Psych Psych Narrative: Affect is flat Assessment & Plan Assessment/Plan (1) Failure to thrive: QUALIFIERS: Failure to thrive age range: in adult Qualified Code(s): R62.7 - Adult failure to thrive (2) Acute hypotension: PLAN: Failure to thrive -Patient with multiple issues -Patient has had multiple admissions in the last 12 months -Has been evaluated by hospice but the patient was wanting continued hospice at that point in time -Patient is understanding that she would have to go off dialysis if she entered hospice and she is currently willing to discuss this with them as she is currently not tolerating dialysis secondary to hypotension -PT/OT/speech therapy consultations Dysphagia -Patient is currently on a pur?ed thin liquid diet as prescribed by speech therapy -Dentures do not fit well -Per discussion with speech therapy today there is no concerns of oral pharyngeal dysphagia Metabolic encephalopathy -Much improved today -Patient is alert and oriented x3 and decisional -Suspect related to dialysis intolerance and medications Chronic hypoxic respiratory insufficiency secondary to acute on chronic HFpEF -Baseline O2 requirement is 4 L -Currently on 5 L nasal cannula with oxygen saturation 94 to 98% -Suspect that we may be able to wean this to 4 L but if not it may be related to inadequate volume removal with dialysis Bilateral lower extremity cellulitis/leukocytosis -White count has trended up -Continue vancomycin and Levaquin -Patient with penicillin allergy in the form of hives therefore Zosyn avoided -Repeat CBC in a.m. -Blood cultures are pending End-stage renal disease on HD -Continue Saturday dialysis as tolerated -Patient has not however been tolerating dialysis well secondary to hypotensive episodes -Continue Midrin -Nephrology following Chronic anemia secondary to renal disease -Hemoglobin stable CAD/mitral valve regurgitation/hypertension/hyperlipidemia -History of stents -Continue aspirin, statin -Patient is currently not tolerant of antihypertensives secondary to hypotension that has developed PAF -Patient currently in sinus rhythm -Beta-radhika on hold secondary to hypotension -Had been on Eliquis previously but this is on hold secondary to epistaxis but this was reinitiated at 2.5 mg p.o. twice daily History of stroke -Unable to perform MRI secondary to pacer -continue aspirin/Eliquis/statin DM-2 -Continue to monitor closely -Insulin pump in place in the past -SSI -Accu-Cheks GERD -Continue PPI DVT prophylaxis -Continue heparin CODE STATUS -DNR CCA no intubation -Patient is now willing to talk to hospice and hospice has been consulted Charges/Coding Visit Charges Inpatient E&M: 78176 Subs Hosp L2
[2021-05-15 17:00] LABS: Bedside Glucose 184 mg/dL (70-110)
--- NOTE | 2021-05-15 17:03 | CHAPLAIN ---
Type of Pastoral Visit _x__ Initial Visit ___ Follow-up Visit ___ On-call Visit ___ General Patient Visit ___ Spiritual Assessment ___ Family Conference ___ Bereavement ___ Rapid Response ___ Code Blue ___ Other (describe below) Pastoral Care Referral From _x__ Patient _x__ Family ___ Nurse ___ Physician ___ Photocomposing Keyboard Operator ___ Mds Rn ___ Other (describe below) Sacrament/Intervention _x__ Active listening ___ Anointing ___ Zoroastrian ___ Bereavement ___ Communion ___ Ora exploration ___ _x__ Life review _x__ Prayer ___ Reconciliation ___ Sacrament of Sick _x__ Supportive presence ___ Wedding ___ Other (describe below) Pastoral Comments son of patient called this research group director to request a visit for his mother; son states that mother/patient is tired, done with dialysis, and not progressing with recovery so has decided to go into hospice program; son says patient would like to talk with the research group director today; found patient getting ready to start dialysis and she states this is my last treatment as I am done; spouse is at bedside and confirms her decision; patient requests spiritual care; brief discussion on difficulty of decision knowing I am leaving my children and ; pt states the end is inevitable and she welcomes presence and prayer support; pt is not able to stay focused and at this point support is offered to spouse who talks about their life together
[2021-05-15] MEDS: Menthol/Lanolin/Calamine/Znox 113 GM Tube 1 APPLIC TOPICAL (21:26)
[2021-05-15] MEDS: levoFLOXacin IV 750 MG/150 ML BAG 100 MG IV (21:26)
[2021-05-15] MEDS: Atorvastatin Calcium 40 MG Tablet PO (21:26)
[2021-05-15 21:56] LABS: Bedside Glucose 187 mg/dL (70-110)
[2021-05-16] VITALS (8 sets, daily range): BP systolic 95–113; BP diastolic 39–52; PULSE 80–85; RESP 14–20; TEMP 36.7–36.9; O2SAT 92–93
[2021-05-16] MEDS: Dext 5%-0.45% NS 1,000 ML 30 ML IV (00:10)
[2021-05-16] MEDS: oxyCODONE 5 MG Tablet PO ×3 (03:40→10:57)
[2021-05-16 05:02] LABS: Absolute Lymphocyte Count 1.05 X10^3/uL (0.83-4.51); Absolute Neutrophil Count 19.7 X10^3/uL (2.0-7.7); Basophil% 0.4 % (0-1); Eosinophil# 0.39 X10^3/uL; Eosinophils% 1.6 % (0-5); Hematocrit 25.7 % (37-47); Hemoglobin 8.4 g/dL (12.0-15.0); Lymphocyte # 1.05 X10^3/ul (0.83-4.51); Lymphocyte % 4.3 % (19-41); Mean Corp Hgb Conc 32.7 g/dL (32-36); Mean Corpuscular Volume 94.8 fL (81-99); Mean Platelet Vol. 10.6 fl (6.2-12.0); Monocyte# 2.48 X10^3/uL; Monocyte% 10.2 % (0-10); NRBC Flagged by Analyzer 0.5 % (0-5); Neutrophil # 19.74 X10^3/uL (2.7-7.7); Neutrophil % 81.6 % (47-70); POSITIVE DIFFERENTIAL YES; Platelet Count 311 K/mm3 (150-450); RBC Distribution Width CV 17.8 % (11.6-14.6); RBC Distribution Width SD 59.4 fl (35.1-43.9); Red Blood Count 2.71 M/mm3 (4.2-5.4); White Blood Count 24.2 K/mm3 (4.4-11.0)
[2021-05-16 05:07] LABS: Differential Indicated SCAN CRITERIA MET
[2021-05-16] MEDS: Midodrine HCl 5 MG Tablet 10 MG PO (05:08)
[2021-05-16] MEDS: Gabapentin 100 MG Capsule PO (05:08)
[2021-05-16 05:36] LABS: ALB/GLOB Ratio 0.3 RATIO (0.9-2.4); AST(SGOT) 22 U/L (15-37); Alanine Aminotransfer ALT/SGPT 9 U/L (13-56); Albumin, Serum 1.7 g/dL (3.2-5.0); Alkaline Phosphatase 313 U/L (45-117); Anion Gap 9 (5-15); BUN 42 mg/dL (7-18); BUN/Creat Ratio 7.3 RATIO (10-20); Calcium,Total 8.2 mg/dL (8.5-10.1); Chloride 99 mmol/L (98-107); Creatinine, Serum 5.74 mg/dL (0.55-1.02); EST Glomerular Filtration Rate 8 mL/min (>60); Est Glom Filt Rate - Afr Amer 10 mL/min (>60); Estimated Creatinine Clearance 10.48 ml/min; Globulin 5.3 g/dL (2.2-4.2); Glucose 181 mg/dL (74-106); Potassium 4.5 mmol/L (3.5-5.1); Sodium Level 134 mmol/L (136-145)
[2021-05-16 05:45] LABS: Differential Comment SCANNED
[2021-05-16 05:46] LABS: Hypochromasia 1+
[2021-05-16] MEDS: Insulin Lispro 100 UNIT/ML INSULN.PEN SC ×2 (06:35→11:03)
[2021-05-16 06:46] LABS: Bedside Glucose 177 mg/dL (70-110)
[2021-05-16] MEDS: Ipratropium/Albuterol Sulfate 3 ML AMPUL.NEB INHALATION (07:09)
[2021-05-16] MEDS: Cholecalciferol (VIT D3) 25 MCG TABLET (1,000 UNITS) 125 MCG PO (07:45)
[2021-05-16] MEDS: Aspirin 81 MG TAB.CHEW PO (07:45)
[2021-05-16] MEDS: APIXABAN 2.5 MG TABLET PO (07:46)
[2021-05-16] MEDS: Pantoprazole Sodium 40 MG Tablet PO (07:46)
--- NOTE | 2021-05-16 10:17 | CASEMGMT ---
Anne Marie from Hospice spoke with patient and family and papers were signed. Family would like the hospice inpatient unit. Dr Aguilar to call Dr Gamble to get approval to send patient. Anne Marie arranged for their mobile unit to [facility] patient between 02/1130. Anne Marie notified patient and family. SW will make sure RN and escrow secretary know. Ana Wilson MSW ERIC
--- NOTE | 2021-05-16 10:23 | DS.PCM_ITS ---
Providers Date of Admission: 05/13/21 Primary Care Physician: Dr. Jhony Delgado MD Consultations 05/14/21 02:17 Consult: Hospice / Palliative Care Routine Consulting Provider: [facility] Reason for Consult: Adult FTT EMERGENT Consult: No Notified: Yes Date Notified: 05/14/21 Time Notified: 10:22 Method of Notification: Page Consult: Nephrology Routine Consulting Provider: Chago Guillen Reason for Consult: ESRD on HD EMERGENT Consult: No Notified: Yes Date Notified: 05/14/21 Time Notified: 07:26 Method of Notification: Answering Service Reason For Visit: WEAKNESS/DYSPHASIA Diagnosis Discharge Diagnosis (1) Failure to thrive: Status: Acute Qualifiers: Failure to thrive age range: in adult Qualified Code(s): R62.7 - Adult failure to thrive (2) Acute hypotension: Status: Acute Code(s): I95.9 - Hypotension, unspecified Medications at Discharge Home Medications prochlorperazine maleate [Compazine] 10 mg PO TID PRN #20 tab 12/18/20 oxycodone 5 mg PO Q6H PRN 5 Days #20 tab 03/03/21 albuterol sulfate 2.5 mg INHALATION Q2H PRN 03/22/21 ondansetron HCl 4 mg PO Q6H PRN 04/18/21 Hospital Course Operations None Procedures Dialysis Summary of Care Provided Minutes Spent on Discharge: 45 Hospital Course: Mrs. Mesa is a 61-year-old white female who presented to the emergency department [facility] on 05/13/2021 with a chief complaint of failure to thrive and trouble swallowing as well as confusion. Patient has had 3 hospitalizations in the month of April and 6 since November 2020. She has had a significant decline in the past 12 months. Most recently she has had difficulty tolerating dialysis due to hypotension and her cardiac medications including antihypertensives had to be discontinued and she was placed on midodrine. Upon presentation the family reported that she was confused a good percent of the time and she has barely been eating and that she has not been sleeping well. The family did have a hospice consult in the nursing facility and they evaluate the patient however the patient wanted to continue dialysis at that time and therefore she did not qualify. As noted she has not lately been tolerating dialysis well and is having to be stopped prematurely secondary to symptomatic hypotension. She also is having ongoing issues with swallowing and pain. She is on chronic oxygen at 3 L and has been stable for the most part on her 3 L while she is been hospitalized. She has an extremely complicated past medical history as noted below. Given her continued issues and intolerance dialysis she and the family were willing to revisit hospice discussion and given her above issues along with her intolerance to dialysis at this time the decision was made to focus on quality and comfort measures rather than aggressive medical care. She was accepted at the inpatient hospice unit with the understanding that dialysis would be discontinued and the focus would be on comfort. She was discharged to the inpatient hospice unit on 05/16/2021. Family was at the bedside for the duration and her defibrillator was turned off prior to discharge. Discharge diagnoses: Failure to thrive Dysphagia Metabolic encephalopathy Chronic hypoxic respiratory insufficiency Chronic heart failure with preserved ejection fraction Leukocytosis Bilateral lower extremity cellulitis End-stage renal disease on dialysis Chronic anemia secondary to renal disease CAD Mitral valve regurgitation Hypertension Hyperlipidemia Paroxysmal atrial fibrillation History of stroke DM-2 GERD Physical Exam Const alert, oriented x3 and no apparent distress Constitutional Narrative: Slightly overweight upper middle-aged white female sitting up in bed, family and hospice nurse at bedside, patient appears much older than stated age, nontoxic but appears somewhat uncomfortable at this time General Appearance: cooperative Exam Limitations: no limitations HEENT normocephalic, head/scalp atraumatic and moist oral mucous membranes Eyes PERRL and EOMs intact bilaterally Eyes Narrative: Pale conjunctiva, no scleral icterus Neck no lymphadenopathy and supple Neck Narrative: Trachea midline, no thyroid enlargement noted Resp normal respiratory effort, no retractions, no use of accessory muscles and clear to auscultation bilaterally Resp Narrative: Diminished at bases with few scattered crackles Auscultation: crackles; Negative for rales, rhonchi or wheezes Cardio regular rate, regular rhythm, S1 normal heart sound, S2 normal heart sound, no rub, no gallops, no clicks and no JVD; Negative for no murmurs Cardio Narrative: 2 out of 6 systolic murmur GI normal to inspection, nondistended, normoactive bowel sounds, soft to palpation, non-tender and non-distended Extremity Extremity Narrative: Slight extremity edema with erythema at bilateral feet on dorsum and plantar surface that extends some up into the shins bilaterally, very tender, no clubbing or cyanosis, right upper extremity fistula with bruit and thrill Skin skin turgor normal and no jaundice Skin Narrative: As noted above Neuro CN's II-XII intact bilaterally, moves all extremities and no focal motor deficits Neuro Narrative: Marked generalized weakness, increased confusion today Sensorium / Orientation: awake and alert Speech: speech normal Psych Psych Narrative: Difficult to assess with increased confusion Weight / BMI Weight Weight: 75.7 kg ABG / Lab / Microbiology Data Result Diagrams: 05/16/21 04:38 05/16/21 04:38 Laboratory: Laboratory Results - last 24 hr 05/14/21 05:15: Diff Path Review Reviewed 05/15/21 06:56: Diff Path Review Reviewed 05/15/21 11:44: POC Glucose 181 H 05/15/21 16:56: POC Glucose 184 H 05/15/21 21:30: POC Glucose 187 H 05/16/21 04:38: WBC 24.2 H, RBC 2.71 L, Hgb 8.4 L, Hct 25.7 L, MCV 94.8, MCH 31.0, MCHC 32.7, RDW Std Deviation 59.4 H, RDW Coeff of Grazyna 17.8 H, Plt Count 311, MPV 10.6, Immature Gran % (Auto) 1.900 H, Neut % (Auto) 81.6 H, Lymph % (Auto) 4.3 L, [place] % (Auto) 10.2 H, Eos % (Auto) 1.6, Baso % (Auto) 0.4, Absolute Neuts (auto) 19.7 H, Absolute Lymphs (auto) 1.05, Nucleated RBC % 0.5, Differential Comment SCANNED, Diff Path Review May foll, Hypochromasia 1+ 05/16/21 04:38: Sodium 134 L, Potassium 4.5, Chloride 99, Carbon Dioxide 26.0, Anion Gap 9, BUN 42 H, Creatinine 5.74 H, Estim Creat Clear Calc 10.48, Est GFR (MDRD) Af Amer 10 L, Est GFR (MDRD) Non-Af 8 L, BUN/Creatinine Ratio 7.3 L, Glucose 181 H, Calcium 8.2 L, Total Bilirubin 0.70, AST 22, ALT 9 L, Alkaline Phosphatase 313 H, Total Protein 7.0, Albumin 1.7 L, Globulin 5.3 H, Albumin/Globulin Ratio 0.3 L 05/16/21 06:30: POC Glucose 177 H Microbiology: Microbiology 05/14/21 14:00 Blood Culture (Wb) - Left Hand Blood Culture - Preliminary No growth in 48 hours. 05/14/21 13:50 Blood Culture (Wb) - Anticubital Left Blood Culture - Preliminary No growth in 48 hours. D/C Instructions Discharge Diet: No restrictions Meaningful Use Info Meaningful Use Diagnoses (Choose all that apply): None applicable Discharge Plan Admission Admit Date/Time: 05/13/21 14:20 Primary Reason for Your Visit: Acute Hypotension/Confusion Attending Provider: Ann Aguilar Primary Care Provider: Jhony Delgado Consulting Providers: Chago Guillen ; Ivelisse Lisa ; Abdullahi Wilcox ; Charito Barrett ; Yazmin Hooper ; Catina Estrada ; Norma Siegel UNIT MANAGER RN Discharge Orders/Prescriptions Prescriptions: Continued prochlorperazine maleate [Compazine] 10 mg tablet 10 mg PO TID PRN (Reason: nausea and vomiting) Qty: 20 RF: 0 oxycodone 5 mg tablet 5 mg PO Q6H PRN (Reason: pain) 5 Days Qty: 20 RF: 0 albuterol sulfate 2.5 mg /3 mL (0.083 %) Solution For Nebulization 2.5 mg INHALATION Q2H PRN (Reason: Shortness Of Breath Or Wheezing) RF: 0 ondansetron HCl 4 mg Tablet 4 mg PO Q6H PRN (Reason: Nausea) RF: 0 Discontinued furosemide 40 mg Tablet 40 mg PO BID RF: 0 atorvastatin 40 mg tablet 40 mg PO QHS RF: 0 metoprolol succinate 50 mg tablet extended release 24 hr 50 mg PO BID RF: 0 omeprazole 40 mg capsule,delayed release(DR/EC) 40 mg PO QHS RF: 0 hydroxyzine HCl 25 mg tablet 25 mg PO TID RF: 0 hydralazine 50 mg tablet 50 mg PO TID RF: 0 cholecalciferol (vitamin D3) 125 mcg (5,000 unit) Capsule 125 mcg PO DAILY RF: 0 Insulin Basal Pump (Pt's Own) [Pump, Basal] 1 unit subcut Q24 Qty: 0 RF: 0 aspirin 81 mg Capsule,Delayed Release(Dr/Ec) 81 mg PO DAILY RF: 0 Acidophilus Capsule 2 cap PO BID RF: 0 Eliquis 5 mg tablet 2.5 mg PO BID RF: 0 promethazine 25 mg tablet 25 mg PO BID RF: 0 ascorbic acid (vitamin C) 1,000 mg Tablet Extended Release 1,000 mg PO DAILY RF: 0 calcium acetate(phosphat bind) 667 mg Capsule 667 mg PO TIDCM Qty: 0 RF: 0 ofloxacin 0.3 % Drops 1 drp LEFT EYE 4X/DAY RF: 0 BromSite 0.075 % Drops 1 drp LEFT EYE QHS RF: 0 methylprednisolone [Medrol] 4 mg Tablet 4 mg PO DAILY RF: 0 Nepro Carb Steady 0.08 gram-1.8 kcal/mL Liquid 240 ml PO DAILY RF: 0 gabapentin 300 mg Capsule 300 mg PO TID Qty: 90 RF: 0 midodrine 5 mg Tablet 10 mg PO TIDCM Qty: 90 RF: 0 Referrals / Follow Up: Jhony Delgado MD [Primary Care Provider] - Disposition Disposition (needs filled in before D/C Order can be placed): Hospice in Medical Facility Charges/Coding Visit Charges Inpatient E&M: 82498 Disch Hosp
--- NOTE | 2021-05-16 10:44 | CASEMGMT ---
Call to [facility] to notify that pt signed Hospice papers today and message left for them at this time as they are only open MWF. Reed PRAKASH CM
[2021-05-16 11:10] LABS: Bedside Glucose 153 mg/dL (70-110)
--- NOTE | 2021-05-16 11:14 | CASEMGMT ---
Dr Gamble asked that patient's defibrillator be deactivated. JINA notified [employer] char[employer]. She spoke with the nurse that does this and patient does not have a defibrillator. Patient has a pacemaker. JINA called Jennifer at Hospice and let her know this information. JINA faxed d/c summary to Hospice. JINA called Glory with [facility] and notified her of d/c plan. Plan: d/c to [facility] hospice unit. Hospice transported patient. Ana REYES
--- NOTE | 2021-05-16 11:24 | NURSING ---
Patient alert and oriented this AM, family at bedside. Plans to discharge to inpatient hospice. Patient changed from DNRCCA to DNRCC. Report given to [facility], verification that patient has pacemaker inserted not ICD.
[2021-05-17 09:32] LABS: Pathologist Review Reviewed
== END 2021-05-16 11:57 | disposition hospice, inpatient (51) | DRG 291 ==
LOC: PCU 05-15 09:36 → ED 05-15 13:51
PROVIDERS: Internal Medicine; Admitting Provider Hospitalist; Emergency Provider Emergency Medicine; PCP Family Medicine; Visit Provider Internal Medicine
DX: I50.33 Acute on chronic diastolic (congestive) heart failure (principal); J18.9 Pneumonia, unspecified organism; G93.41 Metabolic encephalopathy; N18.6 End stage renal disease; J96.11 Chronic respiratory failure with hypoxia; L03.115 Cellulitis of right lower limb; I13.2 Hypertensive heart and chronic kidney disease with heart failure and with stage 5 chronic kidney disease, or end stage renal disease; L03.116 Cellulitis of left lower limb; D63.1 Anemia in chronic kidney disease; E11.22 Type 2 diabetes mellitus with diabetic chronic kidney disease; I50.32 Chronic diastolic (congestive) heart failure; I48.0 Paroxysmal atrial fibrillation; E11.51 Type 2 diabetes mellitus with diabetic peripheral angiopathy without gangrene; Z99.2 Dependence on renal dialysis; Z79.4 Long term (current) use of insulin; E11.42 Type 2 diabetes mellitus with diabetic polyneuropathy; K21.9 Gastro-esophageal reflux disease without esophagitis; I25.10 Atherosclerotic heart disease of native coronary artery without angina pectoris; E78.5 Hyperlipidemia, unspecified; I34.0 Nonrheumatic mitral (valve) insufficiency; M19.90 Unspecified osteoarthritis, unspecified site; I25.2 Old myocardial infarction; R62.7 Adult failure to thrive; Z79.01 Long term (current) use of anticoagulants; Z66 Do not resuscitate; Z79.82 Long term (current) use of aspirin; R13.10 Dysphagia, unspecified; Z87.891 Personal history of nicotine dependence; G89.29 Other chronic pain; F32.A Depression, unspecified; Z95.810 Presence of automatic (implantable) cardiac defibrillator; Z99.81 Dependence on supplemental oxygen; Z86.73 Personal history of transient ischemic attack (TIA), and cerebral infarction without residual deficits; Z95.5 Presence of coronary angioplasty implant and graft; Z95.1 Presence of aortocoronary bypass graft
CPT/HCPCS: 36415; 70450; 71045; 80048; 80053; 80076; 82140; 82550; 82962; 83735; 84100; 84484; 85025; 87040; 90937; 92526; 92610; 93005; 94640; 99285; J7050; G0257; J7799